=== PATIENT | male | born 1965 | race Two or more races ===

== ENCOUNTER 2025-03-15 11:14 | Inpatient (IN) | payer MEDICAID, OTHER ==
[2025-03-15] VITALS (17 sets, daily range): BP systolic 103–135; BP diastolic 32–62; PULSE 76–95; RESP 16–23; TEMP 97.7–99.1; O2SAT 97–100
[~2025-03-15] VITALS: Ht 170.2 cm; Wt 74.2 kg
[2025-03-15] MEDS: NALOXONE HCL 1MG/ML 2ML SYRINGE ONE (11:32)
[2025-03-15] MEDS: NALOXONE HCL 1MG/ML 2ML SYRINGE IV ONE (11:40)
[2025-03-15] MEDS: ETOMIDATE (2MG/ML) 20ML VIAL IV ONE ×2 (11:45→11:55)
[2025-03-15] MEDS: SUCCINYLCHOLINE CHLORIDE 20 MG/ML 10ML VIAL IV ONE ×2 (11:55)
[2025-03-15] MEDS: MIDAZOLAM DRIP 50 mg/50mL 50 ML IV SCH (11:55)
[2025-03-15] MEDS: MIDAZOLAM DRIP 50 mg/50mL 50 ML IV ONE (12:00)
--- NOTE | 2025-03-15 12:56 | ED.PDOC ---
Altered Mental Status HPI Comments 59y M who presents to the ED for chief complaint of ALOC. EMS states they were called by pt family member who is poor historian with last well knows at 1400. EMS arrived on scene and pt has 88% 02 sat and placed on 15 L via NRB. Pt was unable to answer questions and upon ED arrival, pt became alert upon being mov ed from EMS gurney to ED bed. Pt otherwise in and out of consciousness and was intubated. Pt otherwise has noted history of cirrhosis and has R above knee amputation. Chief Complaint: ALOC Time Seen by MD: 12:51 Reviewed Notes: Medications, Allergies Allergies: Coded Allergies: NO KNOWN ALLERGIES (Unverified , 03/15/25) Information Source: Patient, Emergency Med Personnel Mode of Arrival: EMS Past Medical History PAST MEDICAL HISTORY: DM Past Medical History (Other): cirrhosis Surgical History: Unknown Family History Family History: Unknown Social History Smoker: Unknown Alcohol: Unknown Drugs: Unknown Lives In: Home Constitutional: denies: chills, diaphoresis, fatigue, fever, malaise, sweats, weakness, others EENTM: denies: blurred vision, double vision, ear bleeding, ear discharge, ear drainage, ear pain, ear ringing, eye pain, eye redness, hearing loss, mouth pain, mouth swelling, nasal discharge, nose bleeding, nose congestion, nose pain, photophobia, tearing, throat pain, throat swelling, voice changes, others Respiratory: denies: cough, hemoptysis, orthopnea, SOB at rest, shortness of breath, SOB with excertion, stridor, wheezing, others Cardiovascular: denies: chest pain, dizzy spells, diaphoresis, Dyspnea on exertion, edema, irregular heart beat, left arm pain, lightheadedness, palpitations, PND, syncope, others Gastrointestinal: denies: abdomen distended, abdominal pain, blood streaked bowels, constipated, diarrhea, dysphagia, difficulty swallowing, hematemesis, melena, nausea, poor appetite, poor fluid intake, rectal bleeding, rectal pain, vomiting, others Genitourinary: denies: burning, dysuria, flank pain, frequency, hematuria, incontinence, penile discharge, penile sore, pain, testicle pain, testicle swelling, urgency, others Neurological: denies: dizziness, fainting, headache, left sided numbness, left sided weakness, numbness, paresthesia, pre-existing deficit, right sided numb ness, right sided weakness, seizure, speech problems, tingling, tremors, weakness, others Musculoskeletal: denies: back pain, gout, joint pain, joint swelling, muscle pain, muscle stiffness, neck pain, others Integumetry: denies: bruises, change in color, change in hair/nails, dryness, laceration, lesions, lumps, rash, wounds, others Allergic/Immunocompromised: denies: Difficulty Healing, Frequent Infections, Hives, Itching, others Hematologic/Lymphatic: denies: anemia, blood clots, easy bleeding, easy bruising, swollen glands, others Endocrine: denies: excessive hunger, excessive sweating, excessive thirst, excessive urination, flushing, intolerance to cold, intolerance to heat, unexplained weight gain, unexplained weight loss, others Psychiatric: denies: anxiety, bipolar disorder, depression, hopeless, panic disorder, schizophrenia, sleepless, suicidal, others Unable to Obtain due to: Altered Mental Status All Other Systems: Reviewed and Negative Physical Exam General Appearance: Obese HEENT: Normal ENT Inspection, Pharynx Normal, TMs Normal, Other (pupils 3mm bilateral equal and sluggish to ract to light) Neck: Normal Inspection, Other (neck is short and plethoric) Respiratory: Respiratory Distress (copious respiratory secretions) Cardiovascular: No Edema, No JVD, No Murmur, No Gallop, Normal Peripheral Pulses, Regular Rate/Rhythm Breast Exam: Deferred Gastrointestinal: No Organomegaly, Non Tender, No Pulsatile Mass, Normal Bowel Sounds, Soft Genitalia: Deferred Pelvic: Deferred Rectal: Deferred Extremities: Normal capillary refill, Normal inspection, Normal range of motion, No pedal edema Musculoskeletal : Apperance: Normal Neurologic: Other (pt is very somulent, wakes up with painful stimuli, bvut returns to solmulent state) Cerebellar Function: NOT DONE Reflexes: NOT DONE Skin: Dry, Normal Color, Warm Lymphatic: No Adenopathy Was a procedure done? Was a procedure done?: Yes Sedation Sedation?: Yes Informed consent obtained: No Sedation start time: 11:50 Sedation end time: 11:50 Sedation total time: 1 Intubation Indication: Altered Mental Status Prep: Preoxygenation Pretreated with: Sedation (etomidate 40mg) Medicated with: Nothing Intubation Approach: Orotracheal Intubation size: cm (8) Informed consent obtained: No Risks/benefits/alt described: No Notes pt was successfully intubated on the first pass, with the assist of a bougie. condensation in tube with each breath. CO2 detector with good color change. cxr with good Et position. bilateral BS equal, no epigastric gurgling. no complications Differential Diagnosis (ALOC) Differential Diagnosis: Dehydration, Hypoglycemia, DKA, Encephalopathy, Sepsis, Hypoxemia, Seizure, Closed Head Injury, CVA, Mass Lesion, SAH, Drug Overdose, ETOH Intoxication, Heart Failure, Renal Failure X-Ray, Labs, Meds, VS Vital Signs Date Time Temp Pulse Resp B/P (MAP) Pulse Ox O2 Delivery O2 Flow Rate FiO2 03/15/25 16:15 98.6 76 16 103/60 100 30 98.6 03/15/25 16:11 76 16 103/60 (74) 100 30 03/15/25 14:00 88/49 03/15/25 13:45 73 19 103/60 (74) 98 30 03/15/25 13:00 95/53 03/15/25 12:06 76 24 122/67 (85) 100 30 03/15/25 12:00 122/67 03/15/25 11:55 95/53 03/15/25 11:45 Nasal Cannula* 6 44 03/15/25 11:33 70 03/15/25 11:26 98.6 92 16 66/27 (40) 98 98.6 Lab Test 03/15/25 15:23 03/15/25 14:29 03/15/25 14:27 03/15/25 13:16 Range/Units Troponin I High Sensitivity 4 4 </=54 ng/L Urine Color Dark-yellow Yellow Urine Clarity Clear Clear Urine pH 5.5 5.0-9.0 Urine Specific Herrin 1.020 1.001-1.035 Urine Protein 1+ H Negative Urine Ketones Negative Negative Urine Blood Negative Negative /uL Urine Nitrite Negative Negative Urine Bilirubin Negative Negative Urine Urobilinogen Normal Negative mg/dL Urine Leukocyte Esterase Negative Negative /uL Urine RBC <1 0 - 3 /hpf Urine Microscopic WBC 1 0-3 /HPF Urine Squamous Epithelial Cells Few <5 /hpf Urine Bacteria None seen None Seen /hpf Urine Hyaline Casts Many 0 - 2 /lpf Urine Mucus Few None Seen Urine Glucose 3+ H Normal mg/dL Urine Opiates Screen Neg NEGATIVE Urine Fentanyl Screen Neg NEGATIVE Urine Barbiturates Screen Neg NEGATIVE Urine Phencyclidine Screen Neg NEGATIVE Urine Amphetamines Screen Neg NEGATIVE Urine Benzodiazepines Screen Pos NEGATIVE Urine Cocaine Screen Neg NEGATIVE Urine Cannabinoids Screen Neg NEGATIVE White Blood Count 12.6 H 4.4-10.8 10^3/uL Red Blood Count 4.55 4.5-5.90 10^6/uL Hemoglobin 13.1 L 13.5-17.5 g/dL Hematocrit 39.9 L 41.0-53.0 % Mean Corpuscular Volume 87.7 80.0-100.0 fL Mean Corpuscular Hemoglobin 28.7 28.0-32.0 pg Mean Corpuscular Hemoglobin Concent 32.8 32.0-36.0 g/dL Red Cell Distribution Width 14.5 H 11.8-14.3 % Platelet Count 354 140-450 10^3/uL Mean Platelet Volume 7.2 6.9-10.8 fL Neutrophils (%) (Auto) 37.0-80.0 % Lymphocytes (%) (Auto) 10.0-50.0 % Monocytes (%) (Auto) 0.0-12.0 % Basophils (%) (Auto) 0.0-2.0 % Neutrophils # (Auto) 1.6-8.6 10 ^3/uL Lymphocytes # (Auto) 0.4-5.4 10 ^3/uL Monocytes # (Auto) 0-1.3 10 ^3/uL Differential Total Cells Counted 100.0 100 Neutrophils % (Manual) 86 H 37.0-80.0 Band Neutrophils % (Manual) 6 Lymphocytes % (Manual) 3 L 10.0-50.0 Monocytes % (Manual) 5 0-12 Eosinophils % (Manual) 0 0-7 Basophils % (Manual) 0 0.0-2.0 Metamyelocytes % (manual) 0 Myelocytes % (Manual) 0 Promyelocytes % (Manual) 0 Blast Cells % (Manual) 0 Reactive Lymphocytes 0 Platelet Estimate Adequate Anisocytosis (manual) Slight Prothrombin Time 10.3 9.3-11.8 sec Prothrombin Time INR 0.97 0.9-1.15 Activated Partial Thromboplast Time 30.4 24.5-34.5 SEC Sodium Level 144 136-145 mmol/L Potassium Level 4.3 3.5-5.1 mmol/L Chloride Level 118 H 98-107 mmol/L Carbon Dioxide Level 17 L 20-31 mmol/L Anion Gap 9 5-15 Blood Urea Nitrogen 62 H 9-23 mg/dL Creatinine 3.16 H 0.700-1.30 mg/dL Glomerular Filtration Rate Calc 22 >90 mL/min BUN/Creatinine Ratio 19.6 10.0-20.0 Serum Glucose 106 74-106 mg/dL Lactic Acid Level 1.7 0.4-2.0 mmol/L Calcium Level 9.2 8.7-10.4 mg/dL Total Bilirubin 0.3 0.2-1.0 mg/dL Aspartate Amino Transferase (AST) 26 13-40 U/L Alanine Aminotransferase (ALT) 28 7-40 U/L Alkaline Phosphatase 120 H 46-116 U/L Ammonia < 10 L 11-32 umol/L Total Protein 6.0 5.7-8.2 g/dL Albumin 3.9 3.2-4.8 g/dL Plasma/Serum Blood Alcohol < 3.0 <10 mg/dL Blood Gas Specimen Type Arterial Blood Gas Sample Site Right brachial Blood Gas Patient Temperature 37.0 Arterial Blood Date Drawn [id number] Arterial Blood pH 7.183 *L 7.350-7.450 Arterial Blood Partial Pressure CO2 33.7 L 35.0-48.0 mmHg Arterial Blood Partial Pressure O2 92.5 83.0-108.0 mmHg Arterial Blood HCO3 12.4 L 21.0-28.0 mmol/L Arterial Blood Oxygen Saturation 96.6 94.0-98.0 % Arterial Blood Base Excess -14.8 L -2.0-3.0 mmol/L Arterial Blood Oxyhemoglobin 95.3 94.0-98.0 % Arterial Blood Carboxyhemoglobin 1.0 0.5-1.5 % Arterial Blood Methemoglobin 0.3 0.0-1.5 % Carmelo Test N/a Blood Gas Total Hemoglobin 13.20 L 13.5-17.5 g/dL Blood Gas Set Respiration Rate 16.0 Blood Gas Modality Vent - ac FiO2 % 30.0 Blood Gas Tidal Volume 450.0 Blood Gas PEEP or CPAP 5.0 Blood Gas Critical Value Read Back Yes Blood Gas Notified Whom Dr. kuhn Blood Gas Notified Time [id number] Blood Gas Notified By Zack rossi, manager contracting Current Medications Medications (Trade) Dose Ordered Sig/Niesha Route Start Time Stop Time Status Last Admin Midazolam HCl 50 ml @ 1 mls/hr Q24H IV 03/15/25 11:45 03/15/25 11:55 Etomidate 40 mg ONCE ONCE IV 03/15/25 11:45 03/15/25 11:46 DC 03/15/25 11:55 Lactated Ringer's 2,000 ml @ 2,000 mls/hr ONCE ONCE IV 03/15/25 12:00 03/15/25 12:59 DC 03/15/25 13:42 Naloxone HCl (Narcan) 2 mg ONCE ONCE IV 03/15/25 11:40 03/15/25 14:01 DC 03/15/25 11:40 Time of 1ST Reevaluation: 13:20 Reevaluation 1ST: Unchanged Patient Education/Counseling: Pt Unresponsive Family Education/Counseling: No Family Present Additional Information pt had copious thick yellow mucus from his airway. he appeared to have pneumonia, but cxr is unremarkable. the radiographic finding may be lagging behind with clinical finding. i suspect pt has respirtory failure, metabolic acidosis, with renal failure, precipitated by pneumonia with severe sepsis with septic shock Sepsis Sepsis Reasesment Focused Exam Sepsis focused exam: focus exam completed (pt's bp is improving), time: (1639) Orders: Laboratory Tests 03/15/25 14:27: Lactic Acid Level 1.7 Sepsis Date: March 15, 2025 Time recognized/suspected: 15:15 Recent Procedure: No On Antibiotic Therapy: No Respiratory Rate >20: Yes Heart Rate >90: No Temp<36 C (96.8 F) or >38.3 C: No SBP <90 or MAP <65 mmHG: Yes New Acute Mental Status Change: Yes Is the patient on CPAP, BIPAP,: No IV fluid given: Yes Departure 1 Departure Time of Disposition: 16:31 Impression: Primary Impression: Metabolic encephalopathy Additional Impressions: Respiratory failure Qualified Codes: J96.01 - Acute respiratory failure with hypoxia Metabolic acidosis Acute renal failure Qualified Codes: N17.9 - Acute kidney failure, unspecified Pneumonitis Severe sepsis Septic shock Disposition: ADMITTED INPATIENT Admit to: ICU Condition: Critical Critical Care Note Critical Care Time?: Yes (1 hr-critical care time only) Critical care comment: Due to concerns for patients condition deteriorating, the care required my highest level of attention and readiness to intervene. I assessed the patient, reviewed the medical records, ordered the appropriate tests and treatments, then reassessed for results and responsiveness. I communicated with medical personnel and consultants and formulated a plan of care. Total critical care time excludes any procedures Stability Stability form required: No Heart Score Heart Score: Heart Score Response (Comments) Value History N/A 0 EKG N/A 0 Age N/A 0 Risk Factors N/A 0 Troponin N/A 0 Total 0 I personally scribed for MERI KUHN MD ([email or web address]) on 03/15/25 at 12:56. Electronically submitted by Coby Dwyer ([email or web address]). MERI KUHN MD March 15, 2025 12:56
[2025-03-15 13:26] LABS: Base Excess -14.8 mmol/L (-2.0-3.0)
[2025-03-15] MEDS: LACTATED RINGER'S 2,000 ML IV ONE (13:42)
--- NOTE | 2025-03-15 13:55 | DVH ---
CHEST RADIOGRAPH Indication: s/p INTUBATION Technique: Single frontal view of the chest was obtained COMPARISON: None FINDINGS: Lines and Tubes: Endotracheal tube 2.1 cm above the lucrecia. NG tube coursing into the stomach but not seen distally. Low lung volumes bilaterally Moderate cardiomegaly No pleural effusions Lungs: Low lung volumes bilaterally Pleura: No effusion. No pneumothorax. Cardiomediastinal contours: Moderate cardiomegaly Bones: Unremarkable IMPRESSION: 1. Endotracheal tube 2.1 cm above the lucrecia 2. NG tube coursing into the stomach but not identified distally
[2025-03-15] MEDS ORDERED: PIPERACILLIN-TAZO 4.5GM 100 ML IV SCH (14:00)
[2025-03-15 14:31] LABS: Urine Bacteria None Seen /hpf (None Seen)
[2025-03-15 14:37] LABS: Urine Blood Negative /uL (Negative); Urine Clarity Clear (Clear); Urine Color Dark-Yellow (Yellow); Urine Hyaline Cast MANY /lpf (0 - 2); Urine Mucus FEW (None Seen); Urine Protein, UAD 1+ (Negative); Urine Squamous Epithelial Cell FEW /hpf (<5); Urine Urobilinogen Normal (Negative); Urine WBC 1 /HPF (0-3); Urine pH 5.5 (5.0-9.0)
[2025-03-15 14:46] LABS: Hematocrit 39.9 % (41.0-53.0); Hemoglobin 13.1 g/dL (13.5-17.5); Mean Corpuscular Hemoglobin 28.7 pg (28.0-32.0); Mean Corpuscular Hgb Conc. 32.8 g/dL (32.0-36.0); Mean Corpuscular Volume 87.7 fL (80.0-100.0); Platelet Count (auto) 354 10^3/uL (140-450); Red Blood Cells 4.55 10^6/uL (4.5-5.90); Red Cell Distribution Width 14.5 % (11.8-14.3); White Blood Cell 12.6 10^3/uL (4.4-10.8)
[2025-03-15 14:48] LABS: Amphetamine Screen, Urine Neg (NEGATIVE); Barbiturate Scree,Urine Neg (NEGATIVE); Benzodiazephine Screen, Urine Pos (NEGATIVE); Cannabinoid Screen, Urine Neg (NEGATIVE); Cocaine Screen, Urine Neg (NEGATIVE); Opiate Scree,Urine Neg (NEGATIVE); Phencyclidine Screen, Urine Neg (NEGATIVE)
[2025-03-15 14:52] LABS: Basophils % (manual) 0 (0.0-2.0); Blast Cells 0; Eosinophils % (manual) 0 (0-7); Metamyelocytes % 0; Myelocytes % 0; Promyelocytes % 0; Reactive Lymphocytes 0
[2025-03-15 14:58] LABS: Band Neutrophils % (manual) 6; Lymphocytes % (manual) 3 (10.0-50.0); Monocytes % (manual) 5 (0-12)
[2025-03-15 14:59] LABS: Anisocytosis Slight; Platelet Estimate Adequate
[2025-03-15 15:01] LABS: INR 0.97 (0.9-1.15); Partial Thromboplastin Time 30.4 SEC (24.5-34.5); Prothrombin Time 10.3 sec (9.3-11.8)
[2025-03-15 15:02] LABS: Alanine Aminotransferase 28 U/L (7-40); Albumin 3.9 g/dL (3.2-4.8); Alkaline Phosphatase 120 U/L (46-116); Anion Gap 9 (5-15); Aspartate Aminotransferase 26 U/L (13-40); BUN/Creatinine Ratio 19.6 (10.0-20.0); Blood Alcohol < 3.0 mg/dL (<10); Blood Urea Nitrogen 62 mg/dL (9-23); Calcium 9.2 mg/dL (8.7-10.4); Carbon Dioxide 17 mmol/L (20-31); Chloride 118 mmol/L (98-107); Glucose 106 mg/dL (74-106); Potassium 4.3 mmol/L (3.5-5.1); Sodium 144 mmol/L (136-145)
[2025-03-15 15:03] LABS: Bilirubin, Total 0.3 mg/dL (0.2-1.0)
[2025-03-15] MEDS ORDERED: VANCOMYCIN PER PHARMACY 0 MG IV SCH ×2 (15:15→17:15)
--- NOTE | 2025-03-15 15:40 | DVH ---
CLINICAL INFORMATION: Altered mental status. TECHNIQUE: Axial imaging was obtained through the brain without contrast. Coronal and sagittal reform atted images were obtained, reviewed, and stored. Images were reviewed in brain and bone windows. Al l CT scans at this medical facility are performed using dose modulation techniques as appropriate to a performed exam including the following: Automated exposure control was utilized; adjustment of the MA and/or KV according to patient size; and use of iterative reconstruction technique. CTDIvol = 58.7 4 mGy DLP = 1039.97 mGy-cm COMPARISON: None FINDINGS: There is no acute intracranial hemorrhage. No mass effect or midline shift. The ventricles and sulci are within normal limits in size for age. Basal cisterns are patent. The calvarium is unre markable. Mild mucosal thickening of the paranasal sinuses. Retention cyst versus polyp in the right maxillary sinus. Partially visualized nasogastric tube. IMPRESSION: 1. No CT evidence of acute intracranial abnormality. 2. Additional findings as described above.
[2025-03-15] MEDS: SODIUM BICARB 8.4% 50Meq/50ml SYR Vial IV ONE (16:50)
[2025-03-15] MEDS: PIPERACILLIN-TAZOB 3.375GM 100 ML IV ONE (16:54)
[2025-03-15] MEDS ORDERED: DEXTROSE (50%) 50ML SYRG IV PRN (17:15)
[2025-03-15] MEDS ORDERED: NITROGLYCERIN 0.4 MG SL TAB SL PRN (17:15)
[2025-03-15] MEDS ORDERED: MORPHINE SULFATE INJ 2 MG/ml SYRG IV PRN (17:15)
[2025-03-15] MEDS ORDERED: SODIUM CHLORIDE 0.9% 1,000 ML IV SCH (17:15)
[2025-03-15] MEDS: VANCOMYCIN 1GM/250ML KIT 250 ML IV ONE (17:21)
[2025-03-15] MEDS ORDERED: FOLI-119 PO (17:26)
[2025-03-15] MEDS ORDERED: ATOR20TA (17:26)
[2025-03-15] MEDS: VANCOMYCIN 1GM/200ML PM 200 ML IV ONE (17:42)
--- NOTE | 2025-03-15 17:43 | DVHHP2 ---
History of Present Illness Reason for Visit: ALOC History of Present Illness Aaron Del Angel is a 59-year-old male with past medical history of diabetes, cirrhosis, and right BKA who presents to the ED with altered level of consciousness. Per family reports patient last known well time at 2:00 p.m. yesterday. Unable to obtain more information as patient is currently intubated on the vent on sedation and pressor. Called phone number listed on file Yusuf (mother) He lives with the mother per report. Patient was taking insulin and did not take his last night insulin. He was at [facility] last week because he did not take his meds for 3 days. Mom reports he has schizophrenia and bipolar disease on prozac. on Metop started by [facility] takes total of 13 pills. 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 Hepatobiliary: Cirrhosis Psych: Bipolar, Schizophrenia Endocrine: Diabetes Past Surgical History: Other (Right BKA) Smoke: No ALCOHOL: heavy Drugs: None Lives: with Family Review of Systems Constitutional: Yes: Other (ALOC) Allergies: Coded Allergies: NO KNOWN ALLERGIES (Unverified , 03/15/25) Medications Current Medications Medications Dose Ordered Sig/Niesha Route Start Time Stop Time Status Last Admin Dose Admin Midazolam HCl 50 ml @ 1 mls/hr Q24H IV 03/15/25 11:45 03/15/25 11:55 1 MLS/HR Norepinephrine Bitartrate 250 ml @ 3.75 mls/hr Q24H IV 03/15/25 12:00 Vancomycin HCl 200 ml @ 200 mls/hr Q12HR IV 03/15/25 22:00 UNV Vancomycin HCl 0 ml @ 0 mls/hr UD IV 03/15/25 15:15 Piperacillin Sod/ Tazobactam Sod 100 ml @ 25 mls/hr Q8HR IV 03/15/25 22:00 Exam Vital Signs Vital Signs Date Time Temp Pulse Resp B/P (MAP) Pulse Ox O2 Delivery O2 Flow Rate FiO2 03/15/25 16:15 98.6 76 16 103/60 100 30 98.6 03/15/25 11:45 Nasal Cannula* 6 Abdominal: Soft Extremities: Other (Right BKA) Labs/Xrays Labs Test 03/15/25 15:23 03/15/25 14:29 03/15/25 14:27 03/15/25 13:16 Range/Units Troponin I High Sensitivity 4 </=54 ng/L Urine Color Dark-yellow Yellow Urine Clarity Clear Clear Urine pH 5.5 5.0-9.0 Urine Specific [place] 1.020 1.001-1.035 Urine Protein 1+ H Negative Urine Ketones Negative Negative Urine Blood Negative Negative /uL Urine Nitrite Negative Negative Urine Bilirubin Negative Negative Urine Urobilinogen Normal Negative mg/dL Urine Leukocyte Esterase Negative Negative /uL Urine RBC <1 0 - 3 /hpf Urine Microscopic WBC 1 0-3 /HPF Urine Squamous Epithelial Cells Few <5 /hpf Urine Bacteria None seen None Seen /hpf Urine Hyaline Casts Many 0 - 2 /lpf Urine Mucus Few None Seen Urine Glucose 3+ H Normal mg/dL Urine Opiates Screen Neg NEGATIVE Urine Fentanyl Screen Neg NEGATIVE Urine Barbiturates Screen Neg NEGATIVE Urine Phencyclidine Screen Neg NEGATIVE Urine Amphetamines Screen Neg NEGATIVE Urine Benzodiazepines Screen Pos NEGATIVE Urine Cocaine Screen Neg NEGATIVE Urine Cannabinoids Screen Neg NEGATIVE White Blood Count 12.6 H 4.4-10.8 10^3/uL Red Blood Count 4.55 4.5-5.90 10^6/uL Hemoglobin 13.1 L 13.5-17.5 g/dL Hematocrit 39.9 L 41.0-53.0 % Mean Corpuscular Volume 87.7 80.0-100.0 fL Mean Corpuscular Hemoglobin 28.7 28.0-32.0 pg Mean Corpuscular Hemoglobin Concent 32.8 32.0-36.0 g/dL Red Cell Distribution Width 14.5 H 11.8-14.3 % Platelet Count 354 140-450 10^3/uL Mean Platelet Volume 7.2 6.9-10.8 fL Neutrophils (%) (Auto) 37.0-80.0 % Lymphocytes (%) (Auto) 10.0-50.0 % Monocytes (%) (Auto) 0.0-12.0 % Basophils (%) (Auto) 0.0-2.0 % Neutrophils # (Auto) 1.6-8.6 10 ^3/uL Lymphocytes # (Auto) 0.4-5.4 10 ^3/uL Monocytes # (Auto) 0-1.3 10 ^3/uL Differential Total Cells Counted 100.0 100 Neutrophils % (Manual) 86 H 37.0-80.0 Band Neutrophils % (Manual) 6 Lymphocytes % (Manual) 3 L 10.0-50.0 Monocytes % (Manual) 5 0-12 Eosinophils % (Manual) 0 0-7 Basophils % (Manual) 0 0.0-2.0 Metamyelocytes % (manual) 0 Myelocytes % (Manual) 0 Promyelocytes % (Manual) 0 Blast Cells % (Manual) 0 Reactive Lymphocytes 0 Platelet Estimate Adequate Anisocytosis (manual) Slight Prothrombin Time 10.3 9.3-11.8 sec Prothrombin Time INR 0.97 0.9-1.15 Activated Partial Thromboplast Time 30.4 24.5-34.5 SEC Sodium Level 144 136-145 mmol/L Potassium Level 4.3 3.5-5.1 mmol/L Chloride Level 118 H 98-107 mmol/L Carbon Dioxide Level 17 L 20-31 mmol/L Anion Gap 9 5-15 Blood Urea Nitrogen 62 H 9-23 mg/dL Creatinine 3.16 H 0.700-1.30 mg/dL Glomerular Filtration Rate Calc 22 >90 mL/min BUN/Creatinine Ratio 19.6 10.0-20.0 Serum Glucose 106 74-106 mg/dL Lactic Acid Level 1.7 0.4-2.0 mmol/L Calcium Level 9.2 8.7-10.4 mg/dL Total Bilirubin 0.3 0.2-1.0 mg/dL Aspartate Amino Transferase (AST) 26 13-40 U/L Alanine Aminotransferase (ALT) 28 7-40 U/L Alkaline Phosphatase 120 H 46-116 U/L Ammonia < 10 L 11-32 umol/L Total Protein 6.0 5.7-8.2 g/dL Albumin 3.9 3.2-4.8 g/dL Plasma/Serum Blood Alcohol < 3.0 <10 mg/dL Blood Gas Specimen Type Arterial Blood Gas Sample Site Right brachial Blood Gas Patient Temperature 37.0 Arterial Blood Date Drawn [id number] Arterial Blood pH 7.183 *L 7.350-7.450 Arterial Blood Partial Pressure CO2 33.7 L 35.0-48.0 mmHg Arterial Blood Partial Pressure O2 92.5 83.0-108.0 mmHg Arterial Blood HCO3 12.4 L 21.0-28.0 mmol/L Arterial Blood Oxygen Saturation 96.6 94.0-98.0 % Arterial Blood Base Excess -14.8 L -2.0-3.0 mmol/L Arterial Blood Oxyhemoglobin 95.3 94.0-98.0 % Arterial Blood Carboxyhemoglobin 1.0 0.5-1.5 % Arterial Blood Methemoglobin 0.3 0.0-1.5 % Carmelo Test N/a Blood Gas Total Hemoglobin 13.20 L 13.5-17.5 g/dL Blood Gas Set Respiration Rate 16.0 Blood Gas Modality Vent - ac FiO2 % 30.0 Blood Gas Tidal Volume 450.0 Blood Gas PEEP or CPAP 5.0 Blood Gas Critical Value Read Back Yes Blood Gas Notified Whom Dr. kuhn Blood Gas Notified Time [id number] Blood Gas Notified By Zack rossi rrt CLINICAL INFORMATION: Altered mental status. TECHNIQUE: Axial imaging was obtained through the brain without contrast. Coronal and sagittal reformatted images were obtained, reviewed, and stored. Images were reviewed in brain and bone windows. All CT scans at this medical facility are performed using dose modulation techniques as appropriate to a performed exam including the following: Automated exposure control was utilized; adjustment of the MA and/or KV according to patient size; and use of iterative reconstruction technique. CTDIvol = 58.74 mGy DLP = 1039.97 mGy-cm COMPARISON: None FINDINGS: There is no acute intracranial hemorrhage. No mass effect or midline shift. The ventricles and sulci are within normal limits in size for age. Basal cisterns are patent. The calvarium is unremarkable. Mild mucosal thickening of the paranasal sinuses. Retention cyst versus polyp in the right maxillary sinus. Partially visualized nasogastric tube. IMPRESSION: 1. No CT evidence of acute intracranial abnormality. 2. Additional findings as described above. CHEST RADIOGRAPH Indication: s/p INTUBATION Technique: Single frontal view of the chest was obtained COMPARISON: None FINDINGS: Lines and Tubes: Endotracheal tube 2.1 cm above the lucrecia. NG tube coursing into the stomach but not seen distally. Low lung volumes bilaterally Moderate cardiomegaly No pleural effusions Lungs: Low lung volumes bilaterally Pleura: No effusion. No pneumothorax. Cardiomediastinal contours: Moderate cardiomegaly Bones: Unremarkable IMPRESSION: 1. Endotracheal tube 2.1 cm above the lucrecia 2. NG tube coursing into the stomach but not identified distally Assessment/Plan Assessment/Plan Assessment Acute metabolic encephalopathy Leukocytosis likely due to sepsis with septic shock Acute hypoxic respiratory failure with severe sepsis Acute respiratory acidosis intubated and on mechanical ventilation ?Acute on chronic renal insufficiency Azotemia Positive benzo on tox screen History of diabetes History of cirrhosis likely alcoholic History of right BKA History of bipolar History of schizophrenia History of medication noncompliance History of heavy alcohol use Plan Admit to ICU CT head noted Chest x-ray noted Pressor to keep maps greater than 65 Sedation Vent management IV antibiotics-Zosyn plus vancomycin Creatinine Respiratory culture ABG Troponin negative x2 Lactic level Blood cultures Type and screen UA Manual differential Ammonia level Blood alcohol level UDS PT/PTT Sodium bicarb drip Urine culture CT abdomen and pelvis ordered Acute hepatitis panel ordered Hemoglobin A1c ISS and Accu-Cheks NPO Home medications reconciled DVT prophylaxis-Lovenox PUD prophylaxis-PPIs Discussed plan of care with nurse Nephro consult Plan discussed with: Other My Orders Orders - NIYA DUMONT Procedure Category Date Status Time Admit ADMIT 03/15/25 Transmitted 17:11 Allergies [facility] 03/15/25 In Process 17:11 Code Status CODE 03/15/25 Transmitted 17:11 Sodium Chloride 0.9% [facility] 03/15/25 Logged 17:15 Ondansetron Hcl [facility] 03/15/25 Logged (Zofran) 17:15 Comprehensive LAB 03/16/25 Verified Metabolic Panel 04:00 Npo (Nothing By DIET 03/15/25 Transmitted Mouth) Diet Dinner Acetaminophen Tablet [facility] 03/15/25 Logged (Tylenol Tablet) 17:15 Nitroglycerin [facility] 03/15/25 Logged Sublingual (Ntrostat 17:15 Morphine Sulfate [facility] 03/15/25 Logged Injection 17:15 Stat Ekg For Chest [facility] 03/15/25 In Process Pain 17:11 Notify Of Changes [facility] 03/15/25 In Process From Base 17:11 Business Development Coordinator For [facility] 03/15/25 In Process 24 Hours 17:11 Emergency Dysrhythmia [facility] 03/15/25 In Process Protocol 17:11 Rhythm Strips Once [facility] 03/15/25 In Process Every Shift 17:11 Oxygen By Nasal RT 03/15/25 Transmitted Cannula 17:11 Enoxaparin Sodium [facility] 03/15/25 Logged (Lovenox) 17:15 *Dr. [facility] CONS 03/15/25 Transmitted [place] 17:11 Vancomycin Per [facility] 03/15/25 Logged Pharmacy 17:15 Piperacillin-Tazob [facility] 03/15/25 Logged 3.375gm (Zosyn 3.375g 22:00 Urinalysis LAB 03/15/25 Logged 17:11 Urine Bacterial MIRIAN 03/15/25 Logged Culture 17:11 Abg W/ Co-Ox RT 03/15/25 Logged 17:11 D5w 5% (Dextrose 5%) [facility] 03/15/25 Logged W/Sodium Bicarb 50m 17:15 Glucose Blood [facility] 03/15/25 Logged (Accu-Chek Comfort 18:00 Insulin R (Human) [facility] 03/15/25 Logged (Insulin R) 18:00 Dextrose 50% Syringe [facility] 03/15/25 Logged 17:15 Hemoglobin A1c LAB 03/15/25 In Process 17:11 Erythrocyte LAB 03/15/25 Logged Sedimentation Rate 17:25 C-Reactive Protein LAB 03/15/25 Logged 17:25 Date of Service: March 15, 2025 Billing Provider: NIYA DUMONT Common Visit Codes: [id number] INP/OBS CARE (HIGH) NIYA DUMONT March 15, 2025 17:43
[2025-03-15 17:53] LABS: Base Excess -10.6 mmol/L (-2.0-3.0)
[2025-03-15] MEDS: InsuLIN REG 1unit/0.01ml Soln (100units/ml) SC SCH (18:00)
[2025-03-15 18:18] LABS: Erythrocyte Sedimentation Rate 18 mm/hr (0-20)
[2025-03-15] MEDS: ACCU-CHEK COMFORT CURVE STRIP VI SCH (18:27)
[2025-03-15] MEDS: SODIUM BICARB 50mEq/50ml Vial 150 ML in D5W 5% 1,000 ML IV SCH (18:55)
--- NOTE | 2025-03-15 18:58 | ECG ---
[facility] Test Date: 2025-03-15 Test Time: 11:16:41 Pat Name: LISA BENITES Department: ED Room: 0263 Gender: M [employer]: KYLE : 1965 Requested By: MERI ALVARADO Order Number: [id number] Reading MD: Roshan Velasco Measurements Intervals [place] Rate: 70 P: 48 [place]: 172 QRS: 63 QRSD: 92 T: 69 QT: 468 QTc: 506 Interpretive Statements Sinus rhythm Low voltage, precordial leads Prolonged QT interval Electronically Signed On 03-16-2025 22:33:21 PDT by Roshan Velasco Please click the below link to view image of tracing.
[2025-03-15] MEDS ORDERED: HYDR50TA69 PO (20:09)
[2025-03-15] MEDS ORDERED: FLUO1TAB14 PO (20:09)
[2025-03-15] MEDS ORDERED: AML5T PO (20:09)
[2025-03-15] MEDS ORDERED: TEMA30CA PO (20:09)
[2025-03-15] MEDS ORDERED: LOSA-534 PO (20:09)
[2025-03-15] MEDS ORDERED: METO-158 PO (20:09)
[2025-03-15] MEDS ORDERED: ERTU5TAB PO (20:09)
[2025-03-15] MEDS ORDERED: ATOR20TA50 PO (20:09)
[2025-03-15] MEDS ORDERED: INSLANTI SC (20:09)
[2025-03-15] MEDS ORDERED: APIX5TAB PO (20:09)
[2025-03-15] MEDS ORDERED: METF-371 PO (20:09)
[2025-03-15] MEDS ORDERED: GABA-1308 PO (20:09)
[2025-03-15] MEDS ORDERED: BACL10TA PO (20:09)
[2025-03-15] MEDS ORDERED: INSU100I52 IJ (20:09)
[2025-03-15] MEDS ORDERED: QUET100T47 PO (20:09)
[2025-03-15] MEDS ORDERED: GABA300T4 PO (20:11)
[2025-03-15] MEDS: NOREPINEPHRINE 8 MG/250ML KIT 250 ML IV SCH (20:21)
[2025-03-15] MEDS: ATORVASTATIN 20 MG TAB NG SCH (21:39)
[2025-03-15] MEDS: PIPERACILLIN-TAZOB 3.375GM 100 ML IV SCH (21:39)
[2025-03-15] MEDS ORDERED: VANCOMYCIN 1GM/200ML PM 200 ML IV SCH (22:00)
[2025-03-15] MEDS ORDERED: PIPERACILLIN-TAZOB 3.375GM 100 ML IV SCH (22:00)
[2025-03-16] VITALS (109 sets, daily range): BP systolic 88–174; BP diastolic 32–91; PULSE 81–110; RESP 13–20; TEMP 98.8–100.6; O2SAT 96–100
--- NOTE | 2025-03-16 00:21 | DVH ---
Exam: CT CT AB PEL WO CON-NO ORAL OR IV History: hx of cirrhosis Comparison Study: None Technique: Multidetector spiral CT of the abdomen was performed from lung bases to pubic symphysis. I maging was performed without IV contrast. Axial, coronal and sagittal multiplanar reformats were obta ined from the axial data set by the technologist. Radiation Dose : 1. Abdomen/Pelvis: CTDIvol 20.6 mGy, DLP 1383.3 mGy*cm. Findings: Evaluation of solid organs is limited due to lack of intravenous contrast use. Lung Bases: Small bilateral pleural effusions with moderate adjacent atelectasis. The heart is modera tely enlarged and atherosclerotic vascular calcifications are noted. Enteric catheter terminates wit hin the region of the gastroduodenal junction. Liver: The liver is normal in size. No focal lesions. Gallbladder and Biliary Tree: Unremarkable Spleen: Unremarkable Pancreas: The pancreas is grossly normal in appearance. Adrenal Glands: Unremarkable Kidneys: Kidneys are grossly normal without calculi or hydronephrosis. Bladder: Roach catheter. Small volume intraluminal gas. Bowel: The stomach is grossly normal in appearance. Small bowel and colon are normal in caliber and d istribution. Rectal catheter. The appendix is normal. Ascites: Absent Lymphadenopathy: No mesenteric, retroperitoneal or periportal lymphadenopathy. Abdominal Wall and Mesentery: Unremarkable. Vasculature: The visualized abdominal aorta is normal in size and caliber. Atherosclerotic vascular c alcifications. Evaluation of abdominal and pelvic vessels is limited due to lack of intravenous cont rast. Pelvic Organs: Unremarkable Musculoskeletal: No aggressive focal bony lesions, acute fractures or dislocation. IMPRESSION: 1. No evidence of acute abdominopelvic process. 2. Small bilateral pleural effusions with adjacent atelectasis. 3. Cardiomegaly. 4. Lines and tubes as above. Radiation optimization: All CT scans at this facility use at least one of these dose optimization surinder hniques: automated exposure control mA and/or kV adjustment per patient size (includes targeted exam s where dose is matched to clinical indication) or iterative reconstruction.
--- NOTE | 2025-03-16 04:37 | DVH ---
CHEST RADIOGRAPH Indication: routine cxr for intubated patients Technique: Single frontal view of the chest was obtained COMPARISON: XY CHEST PORTABLE on DOS: 03/15/25 FINDINGS: Lines and Tubes: Unchanged. Lungs: Diminished lung volumes with mild exaggeration of the pulmonary vasculature. No evidence of f ocal consolidation. Pleura: No effusion. No pneumothorax. Cardiomediastinal contours: Unremarkable Bones: Unremarkable IMPRESSION: 1. No acute disease. Increased prominence of the pulmonary vasculature. 2. Lines and tubes unchanged.
[2025-03-16] MEDS: SODIUM BICARB 8.4% 50Meq/50ml SYR Vial IV ONE (05:30)
[2025-03-16 05:35] LABS: Basophils # (auto) 0 10 ^3/uL (0-0.2); Basophils % (auto) 0.2 % (0.0-2.0); Eosinophils # (auto) 0.1 10 ^3/uL (0-0.8); Eosinophils % (auto) 1.4 % (0.0-7.0); Hematocrit 37.7 % (41.0-53.0); Hemoglobin 12.7 g/dL (13.5-17.5); Lymphocytes # (auto) 0.5 10 ^3/uL (0.4-5.4); Lymphocytes % (auto) 5.1 % (10.0-50.0); Mean Corpuscular Hgb Conc. 33.7 g/dL (32.0-36.0); Mean Corpuscular Volume 86.2 fL (80.0-100.0); Monocytes # (auto) 0.5 10 ^3/uL (0-1.3); Monocytes % (auto) 4.9 % (0.0-12.0); Neutrophils # (auto) 9.2 10 ^3/uL (1.6-8.6); Neutrophils % (auto) 88.4 % (37.0-80.0); Platelet Count (auto) 319 10^3/uL (140-450); Red Blood Cells 4.38 10^6/uL (4.5-5.90); Red Cell Distribution Width 14.3 % (11.8-14.3); White Blood Cell 10.5 10^3/uL (4.4-10.8)
[2025-03-16 05:58] LABS: Alanine Aminotransferase 23 U/L (7-40); Albumin 3.9 g/dL (3.2-4.8); Alkaline Phosphatase 108 U/L (46-116); Anion Gap 10 (5-15); Aspartate Aminotransferase 30 U/L (13-40); BUN/Creatinine Ratio 17.7 (10.0-20.0); Bilirubin, Total 0.3 mg/dL (0.2-1.0); Blood Urea Nitrogen 36 mg/dL (9-23); Calcium 8.9 mg/dL (8.7-10.4); Carbon Dioxide 21 mmol/L (20-31); Chloride 114 mmol/L (98-107); Glucose 201 mg/dL (74-106); Potassium 3.6 mmol/L (3.5-5.1); Sodium 145 mmol/L (136-145); Total Protein 6.3 g/dL (5.7-8.2)
[2025-03-16 07:01] LABS: Base Excess -2.7 mmol/L (-2.0-3.0)
[2025-03-16] MEDS: ENOXAPARIN SOD 30 MG/0.3 ML SYRINGE SC SCH (09:33)
[2025-03-16] MEDS: FOLIC ACID 1 MG TAB PO SCH (09:34)
--- NOTE | 2025-03-16 10:07 | DVHINCON2 ---
Date of service: Mar 16, 2025 Referring Physician Hospital Reason for Consultation Acute kidney injury History of Present Illness 59-year-old male with significant chronic medical conditions of diabetes, hypertension, BKA presents to the hospital with change in mental state. Due to patient's respiratory concerns and hypoxia patient was intubated. Patient was transferred to the ICU. On pressors. Nephrology consulted due to elevated creatinine creatinine was 3.1 on admission without baseline. Past Medical History Diabetes, hypertension, peripheral vascular disease, hyperlipidemia Past Surgical History Right BKA Allergies: Coded Allergies: NO KNOWN ALLERGIES (Unverified , 03/15/25) Home Meds Reported Medications Gabapentin (Once-Daily) (Gabapentin) 300 Mg Tab, 400 MG PO, TAB 03/15/25 Insulin Lispro (Insulin Lispro) 100 Unit/Ml Inj, 15 UNIT IJ, INJ 03/15/25 Insulin Lispro (Insulin Lispro) 100 Unit/Ml Inj, 100 UNIT IJ, INJ 03/15/25 Insulin Glargine (Lantus) 100 Unit/Ml Inj, 40 UNIT SC, INJ 03/15/25 Metoprolol Tartrate (Metoprolol Tartrate) 50 Mg Tab, 50 MG PO for 30 Days, MG 03/15/25 Hydroxyzine Hcl (Hydroxyzine Hcl) 50 Mg Tab, 50 MG PO for 30 Days, MG 03/15/25 Apixaban Base (ELIQUIS) 5 Mg Tab, 5 MG PO BID, TAB 03/15/25 Ertugliflozin l-Pyroglutamic A (Steglatro) 5 Mg Tab, 5 MG PO, TAB 03/15/25 Amlodipine Besylate (NORVASC TABLET) 5 Mg Tb, 1 TAB PO DAILY, #90 TAB 3 Refills 03/15/25 Baclofen (Baclofen) 10 Mg Tab, 0 PO Q8HR for 30 Days, MG 03/15/25 Quetiapine Fumerate (QUETIAPINE FUMARATE) 100 Mg Tab, 100 MG PO for 30 Days, MG 03/15/25 Folic Acid (Folic Acid) 1 Mg Tab, 1 MG PO DAILY for 30 Days, MG 03/15/25 Temazepam (Temazepam) 30 Mg Cap, 30 MG PO, CAP 03/15/25 Atorvastatin Calcium (ATORVASTATIN CALCIUM) 20 Mg Tab, 20 MG PO DAILY, TAB 03/15/25 Losartan Potassium (Losartan Potassium) 50 Mg Tab, 50 MG PO DAILY for 30 Days, MG 03/15/25 Fluoxetine HCl (Pmdd) (Fluoxetine HCl) 20 Mg Tab, 20 MG PO, TAB 03/15/25 Metformin Hydrochloride (Metformin Hcl) 850 Mg Tab, 850 MG PO for 30 Days, MG 03/15/25 Atorvastatin Calcium (Lipitor) 20 Mg Tab 03/15/25 Folic Acid (Folic Acid) 1 Mg Tab, 1 TAB PO DAILY 03/15/25 Discontinued Reported Medications Gabapentin (Gabapentin) 100 Mg Cap, 100 MG PO TID 03/15/25 Current Medications Current Medications Medications (Trade) Dose Ordered Sig/Niesha Route PRN Reason Start Time Stop Time Status Last Admin Midazolam HCl 50 ml @ 1 mls/hr Q24H IV 03/15/25 11:45 03/16/25 07:19 Norepinephrine Bitartrate 250 ml @ 3.75 mls/hr Q24H IV 03/15/25 12:00 Vancomycin HCl 200 ml @ 200 mls/hr Q12HR IV 03/15/25 22:00 UNV Piperacillin Sod/ Tazobactam Sod 100 ml @ 25 mls/hr Q8HR IV 03/15/25 14:00 03/15/25 15:10 DC Vancomycin HCl 0 ml @ 0 mls/hr UD IV 03/15/25 15:15 Piperacillin Sod/ Tazobactam Sod 100 ml @ 25 mls/hr Q8HR IV 03/15/25 22:00 03/16/25 05:39 Sodium Chloride 1,000 ml @ 120 mls/hr Q8H20M IV 03/15/25 17:15 03/15/25 17:48 DC Ondansetron HCl (Zofran) 4 mg Q4HP PRN IV NAUSEA / VOMITING 03/15/25 17:15 Acetaminophen (Tylenol Tablet) 650 mg Q6HP PRN PO PAIN SCALE 1-3 OR TEMP>100.4 03/15/25 17:15 Nitroglycerin (Ntrostat Sublingual) 0.4 mg Q5MINP PRN SL FOR CHEST PAIN 03/15/25 17:15 Morphine Sulfate 2 mg Q30M PRN IV FOR CHEST PAIN 03/15/25 17:15 Enoxaparin Sodium (Lovenox) 30 mg DAILY SC 03/16/25 10:00 03/16/25 09:33 Vancomycin HCl 0 ml @ 0 mls/hr UD IV 03/15/25 17:15 03/15/25 17:32 DC Piperacillin Sod/ Tazobactam Sod 100 ml @ 25 mls/hr Q8HR IV 03/15/25 22:00 03/15/25 17:42 DC Sodium Bicarbonate 150 ml/Dextrose 1,150 ml @ 100 mls/hr [id number] IV 03/15/25 17:15 03/16/25 06:36 Diagnostic Test (Pha) (Accu-Chek Comfort Curve T) 1 strip Q6HR 03/15/25 18:00 03/16/25 05:53 Insulin Human Regular (InsuLIN R) Q6HR SC 03/15/25 18:00 03/16/25 05:53 Dextrose 50 ml UD PRN IV Blood Sugar LESS THAN 60 03/15/25 17:15 Atorvastatin Calcium (Lipitor) 20 mg HS NG 03/15/25 22:00 03/15/25 21:39 Folic Acid 1 mg DAILY PO 03/16/25 10:00 03/16/25 09:34 Family History: Patient reports no known family medical history. Review of Systems Unable to obtain as patient is intubated H&P Exam Vital Signs/I&O Vital Sign Date Time Temp Pulse Resp B/P (MAP) Pulse Ox O2 Delivery O2 Flow Rate FiO2 03/16/25 08:10 89 17 155/50 (85) 100 30 03/16/25 08:00 Mechanical Ventilator+ 03/16/25 04:00 98.8 98.8 03/15/25 11:45 6 Intake and Output 03/15/25 03/16/25 19:00 07:00 Intake Total 3033.0833 ml 1416 ml Output Total 2350 ml Balance 3033.0833 ml -934 ml Intake Oral 0 ml IV Total 3033.0833 ml 1416 ml Output Urine Total 2350 ml Physical Exam male appears stated age Intubated Sedated Off pressors Right BKA Abdomen is large nondistended nontender no fluid wave Left lower extremity shows no pitting edema Regular rate and rhythm Labs/Diagnostic Data Labs/Diagnostic Data Laboratory Tests Test 03/16/25 06:54 03/16/25 05:48 03/16/25 04:56 03/15/25 23:36 Range/Units Blood Gas Specimen Type Arterial Blood Gas Sample Site Left radial Blood Gas Patient Temperature 37.0 Arterial Blood Date Drawn [id number] Arterial Blood pH 7.404 7.350-7.450 Arterial Blood Partial Pressure CO2 35.0 35.0-48.0 mmHg Arterial Blood Partial Pressure O2 97.0 83.0-108.0 mmHg Arterial Blood HCO3 21.4 21.0-28.0 mmol/L Arterial Blood Oxygen Saturation 96.9 94.0-98.0 % Arterial Blood Base Excess -2.7 L -2.0-3.0 mmol/L Arterial Blood Oxyhemoglobin 95.9 94.0-98.0 % Arterial Blood Carboxyhemoglobin 0.6 0.5-1.5 % Arterial Blood Methemoglobin 0.4 0.0-1.5 % Carmelo Test Modified Blood Gas Total Hemoglobin 12.80 L 13.5-17.5 g/dL Blood Gas Set Respiration Rate 16.0 Blood Gas Modality Vent - ac FiO2 % 30.0 Blood Gas Tidal Volume 450.0 Blood Gas PEEP or CPAP 5.0 POC Glucose 197 H 182 H 70-106 mg/dl White Blood Count 10.5 4.4-10.8 10^3/uL Red Blood Count 4.38 L 4.5-5.90 10^6/uL Hemoglobin 12.7 L 13.5-17.5 g/dL Hematocrit 37.7 L 41.0-53.0 % Mean Corpuscular Volume 86.2 80.0-100.0 fL Mean Corpuscular Hemoglobin 29.0 28.0-32.0 pg Mean Corpuscular Hemoglobin Concent 33.7 32.0-36.0 g/dL Red Cell Distribution Width 14.3 11.8-14.3 % Platelet Count 319 140-450 10^3/uL Mean Platelet Volume 7.5 6.9-10.8 fL Neutrophils (%) (Auto) 88.4 H 37.0-80.0 % Lymphocytes (%) (Auto) 5.1 L 10.0-50.0 % Monocytes (%) (Auto) 4.9 0.0-12.0 % Eosinophils (%) (Auto) 1.4 0.0-7.0 % Basophils (%) (Auto) 0.2 0.0-2.0 % Neutrophils # (Auto) 9.2 H 1.6-8.6 10 ^3/uL Lymphocytes # (Auto) 0.5 0.4-5.4 10 ^3/uL Monocytes # (Auto) 0.5 0-1.3 10 ^3/uL Eosinophils # (Auto) 0.1 0-0.8 10 ^3/uL Basophils # (Auto) 0 0-0.2 10 ^3/uL Nucleated Red Blood Cells 0.0 % Sodium Level 145 136-145 mmol/L Potassium Level 3.6 3.5-5.1 mmol/L Chloride Level 114 H 98-107 mmol/L Carbon Dioxide Level 21 20-31 mmol/L Anion Gap 10 5-15 Blood Urea Nitrogen 36 #H 9-23 mg/dL Creatinine 2.03 H 0.700-1.30 mg/dL Glomerular Filtration Rate Calc 37 >90 mL/min BUN/Creatinine Ratio 17.7 10.0-20.0 Serum Glucose 201 H 74-106 mg/dL Calcium Level 8.9 8.7-10.4 mg/dL Total Bilirubin 0.3 0.2-1.0 mg/dL Aspartate Amino Transferase (AST) 30 13-40 U/L Alanine Aminotransferase (ALT) 23 7-40 U/L Alkaline Phosphatase 108 46-116 U/L Total Protein 6.3 5.7-8.2 g/dL Albumin 3.9 3.2-4.8 g/dL Random Vancomycin Level 12.4 H 5-10 ug/mL Test 03/15/25 18:26 03/15/25 17:47 03/15/25 15:23 03/15/25 14:29 Range/Units POC Glucose 126 H 70-106 mg/dl Blood Gas Specimen Type Arterial Blood Gas Sample Site Right radial Blood Gas Patient Temperature 37.0 Arterial Blood Date Drawn [id number] Arterial Blood pH 7.291 L 7.350-7.450 Arterial Blood Partial Pressure CO2 31.3 L 35.0-48.0 mmHg Arterial Blood Partial Pressure O2 131.8 H 83.0-108.0 mmHg Arterial Blood HCO3 14.7 L 21.0-28.0 mmol/L Arterial Blood Oxygen Saturation 98.3 H 94.0-98.0 % Arterial Blood Base Excess -10.6 L -2.0-3.0 mmol/L Arterial Blood Oxyhemoglobin 97.4 94.0-98.0 % Arterial Blood Carboxyhemoglobin 0.5 0.5-1.5 % Arterial Blood Methemoglobin 0.4 0.0-1.5 % Carmelo Test Yes Blood Gas Total Hemoglobin 12.00 L 13.5-17.5 g/dL Blood Gas Set Respiration Rate 16.0 Blood Gas Modality Vent - ac FiO2 % 30.0 Blood Gas Tidal Volume 450.0 Blood Gas PEEP or CPAP 5.0 Troponin I High Sensitivity 4 </=54 ng/L Urine Color Dark-yellow Yellow Urine Clarity Clear Clear Urine pH 5.5 5.0-9.0 Urine Specific [place] 1.020 1.001-1.035 Urine Protein 1+ H Negative Urine Ketones Negative Negative Urine Blood Negative Negative /uL Urine Nitrite Negative Negative Urine Bilirubin Negative Negative Urine Urobilinogen Normal Negative mg/dL Urine Leukocyte Esterase Negative Negative /uL Urine RBC <1 0 - 3 /hpf Urine Microscopic WBC 1 0-3 /HPF Urine Squamous Epithelial Cells Few <5 /hpf Urine Bacteria None seen None Seen /hpf Urine Hyaline Casts Many 0 - 2 /lpf Urine Mucus Few None Seen Urine Glucose 3+ H Normal mg/dL Urine Opiates Screen Neg NEGATIVE Urine Fentanyl Screen Neg NEGATIVE Urine Barbiturates Screen Neg NEGATIVE Urine Phencyclidine Screen Neg NEGATIVE Urine Amphetamines Screen Neg NEGATIVE Urine Benzodiazepines Screen Pos NEGATIVE Urine Cocaine Screen Neg NEGATIVE Urine Cannabinoids Screen Neg NEGATIVE Test 03/15/25 14:27 03/15/25 13:16 Range/Units White Blood Count 12.6 H 4.4-10.8 10^3/uL Red Blood Count 4.55 4.5-5.90 10^6/uL Hemoglobin 13.1 L 13.5-17.5 g/dL Hematocrit 39.9 L 41.0-53.0 % Mean Corpuscular Volume 87.7 80.0-100.0 fL Mean Corpuscular Hemoglobin 28.7 28.0-32.0 pg Mean Corpuscular Hemoglobin Concent 32.8 32.0-36.0 g/dL Red Cell Distribution Width 14.5 H 11.8-14.3 % Platelet Count 354 140-450 10^3/uL Mean Platelet Volume 7.2 6.9-10.8 fL Neutrophils (%) (Auto) 37.0-80.0 % Lymphocytes (%) (Auto) 10.0-50.0 % Monocytes (%) (Auto) 0.0-12.0 % Basophils (%) (Auto) 0.0-2.0 % Neutrophils # (Auto) 1.6-8.6 10 ^3/uL Lymphocytes # (Auto) 0.4-5.4 10 ^3/uL Monocytes # (Auto) 0-1.3 10 ^3/uL Differential Total Cells Counted 100.0 100 Neutrophils % (Manual) 86 H 37.0-80.0 Band Neutrophils % (Manual) 6 Lymphocytes % (Manual) 3 L 10.0-50.0 Monocytes % (Manual) 5 0-12 Eosinophils % (Manual) 0 0-7 Basophils % (Manual) 0 0.0-2.0 Metamyelocytes % (manual) 0 Myelocytes % (Manual) 0 Promyelocytes % (Manual) 0 Blast Cells % (Manual) 0 Reactive Lymphocytes 0 Platelet Estimate Adequate Anisocytosis (manual) Slight Erythrocyte Sedimentation Rate 18 0-20 mm/hr Prothrombin Time 10.3 9.3-11.8 sec Prothrombin Time INR 0.97 0.9-1.15 Activated Partial Thromboplast Time 30.4 24.5-34.5 SEC Sodium Level 144 136-145 mmol/L Potassium Level 4.3 3.5-5.1 mmol/L Chloride Level 118 H 98-107 mmol/L Carbon Dioxide Level 17 L 20-31 mmol/L Anion Gap 9 5-15 Blood Urea Nitrogen 62 H 9-23 mg/dL Creatinine 3.16 H 0.700-1.30 mg/dL Glomerular Filtration Rate Calc 22 >90 mL/min BUN/Creatinine Ratio 19.6 10.0-20.0 Serum Glucose 106 74-106 mg/dL Hemoglobin A1c 5.6 <5.7 % A1C Lactic Acid Level 1.7 0.4-2.0 mmol/L Calcium Level 9.2 8.7-10.4 mg/dL Total Bilirubin 0.3 0.2-1.0 mg/dL Aspartate Amino Transferase (AST) 26 13-40 U/L Alanine Aminotransferase (ALT) 28 7-40 U/L Alkaline Phosphatase 120 H 46-116 U/L Ammonia < 10 L 11-32 umol/L Troponin I High Sensitivity 4 </=54 ng/L C-Reactive Protein High Sensitivity 2.32 H <1.0 mg/dL Total Protein 6.0 5.7-8.2 g/dL Albumin 3.9 3.2-4.8 g/dL Plasma/Serum Blood Alcohol < 3.0 <10 mg/dL Blood Gas Specimen Type Arterial Blood Gas Sample Site Right brachial Blood Gas Patient Temperature 37.0 Arterial Blood Date Drawn [id number] Arterial Blood pH 7.183 *L 7.350-7.450 Arterial Blood Partial Pressure CO2 33.7 L 35.0-48.0 mmHg Arterial Blood Partial Pressure O2 92.5 83.0-108.0 mmHg Arterial Blood HCO3 12.4 L 21.0-28.0 mmol/L Arterial Blood Oxygen Saturation 96.6 94.0-98.0 % Arterial Blood Base Excess -14.8 L -2.0-3.0 mmol/L Arterial Blood Oxyhemoglobin 95.3 94.0-98.0 % Arterial Blood Carboxyhemoglobin 1.0 0.5-1.5 % Arterial Blood Methemoglobin 0.3 0.0-1.5 % Carmelo Test N/a Blood Gas Total Hemoglobin 13.20 L 13.5-17.5 g/dL Blood Gas Set Respiration Rate 16.0 Blood Gas Modality Vent - ac FiO2 % 30.0 Blood Gas Tidal Volume 450.0 Blood Gas PEEP or CPAP 5.0 Blood Gas Critical Value Read Back Yes Blood Gas Notified Whom Dr. kuhn Blood Gas Notified Time [id number] Blood Gas Notified By Zack rossi, payal Assessment 59-year-old male presents to the hospital with acute change in mental state. We will subsequently intubated due to hypoxic respiratory failure Acute kidney injury hemodynamically mediated in the setting of hypotension Chronic kidney disease unspecified baseline is unknown Acute respiratory failure suspicious for pneumonia Peripheral vascular disease with a history of BKA, and diabetes. Clinically patient is at this time appears mildly hypervolemic blood pressure is elevated at patient's showing pulmonary congestion on chest x-ray. We will discontinue IV fluids particularly sodium bicarbonate now that acidosis has resolved. Patient has increased urine output we will give small dose of diuretic to improve and increase urine output Monitor electrolytes Strict Is&Os via [place] Plan discussed with: Other AB SCHAEFFER MD Mar 16, 2025 10:07
[2025-03-16] MEDS: FUROSEMIDE 40 MG/4 ML VIAL IV ONE (10:27)
[2025-03-16] MEDS: POTASSIUM CHL 20MEQ/100ML 100 ML IV SCH (10:27)
[2025-03-16] MEDS: PROPOFOL 100 ML IV SCH (11:00)
[2025-03-16] MEDS: fentaNYL Drip 2500mCg/250mlNS 250 ML IV SCH (11:16)
--- NOTE | 2025-03-16 13:18 | DVHPN2 ---
Subjective Patient intubated and sedated. Reviewed: Care Plan, H&P, Labs, Medications Changes from previous H/P or p: No Changes General: Per HPI Objective Vitals Vital Signs Date Time Temp Pulse Resp B/P (MAP) Pulse Ox O2 Delivery O2 Flow Rate FiO2 03/16/25 12:00 19 98 Mechanical Ventilator+ 30 30 03/16/25 12:00 99.3 93 134/71 (92) 99.3 03/15/25 11:45 6 Intake/Output Intake and Output 03/16/25 07:00 Intake Total 4449.0833 ml Output Total 2350 ml Balance 2099.0833 ml Intake Oral 0 ml IV Total 4449.0833 ml Output Urine Total 2350 ml General Appearance: Other (Intubated and sedated) HEENT: Atraumatic, PERRLA Lungs: Clear to auscultation, Normal air movement, Other (Mechanical ventilation) Cardiovascular: Normal S1, Normal S2 Neuro: Other (Unable to assess) Skin: Dry, Intact Medications Current Medications Medications Dose Ordered Sig/Niesha Route Start Time Stop Time Status Last Admin Dose Admin Midazolam HCl 50 ml @ 1 mls/hr Q24H IV 03/15/25 11:45 03/16/25 10:35 15 MLS/HR Norepinephrine Bitartrate 250 ml @ 3.75 mls/hr Q24H IV 03/15/25 12:00 Vancomycin HCl 200 ml @ 200 mls/hr Q12HR IV 03/15/25 22:00 UNV Vancomycin HCl 0 ml @ 0 mls/hr UD IV 03/15/25 15:15 Piperacillin Sod/ Tazobactam Sod 100 ml @ 25 mls/hr Q8HR IV 03/15/25 22:00 03/16/25 05:39 25 MLS/HR Ondansetron HCl 4 mg Q4HP PRN IV 03/15/25 17:15 Acetaminophen 650 mg Q6HP PRN PO 03/15/25 17:15 Nitroglycerin 0.4 mg Q5MINP PRN SL 03/15/25 17:15 Morphine Sulfate 2 mg Q30M PRN IV 03/15/25 17:15 Enoxaparin Sodium 30 mg DAILY SC 03/16/25 10:00 03/16/25 09:33 30 MG Diagnostic Test (Pha) 1 strip Q6HR 03/15/25 18:00 6/1/25 11:24 1 STRIP Insulin Human Regular Q6HR SC 03/15/25 18:00 03/16/25 11:24 3 UNITS Dextrose 50 ml UD PRN IV 03/15/25 17:15 Atorvastatin Calcium 20 mg HS NG 03/15/25 22:00 03/15/25 21:39 20 MG Folic Acid 1 mg DAILY PO 03/16/25 10:00 03/16/25 09:34 1 MG Potassium Chloride 100 ml @ 50 mls/hr Q2H IV 03/16/25 10:15 03/16/25 14:14 03/16/25 12:21 50 MLS/HR Propofol 100 ml @ 2.331 mls/ hr Q24H IV 03/16/25 11:00 Fentanyl Citrate 250 ml @ 2.5 mls/hr Q24H IV 03/16/25 11:00 03/16/25 11:16 2.5 MLS/HR Laboratory Results Laboratory Tests 03/16/25 04:56 Chemistry Test 03/15/25 14:27 03/16/25 04:56 Albumin 3.9 g/dL (3.2-4.8) 3.9 g/dL (3.2-4.8) Calcium Level 9.2 mg/dL (8.7-10.4) 8.9 mg/dL (8.7-10.4) Total Protein 6.0 g/dL (5.7-8.2) 6.3 g/dL (5.7-8.2) Magnesium Level 1.6 mg/dL (1.6-2.6) Coagulation Test 03/15/25 14:27 Prothrombin Time 10.3 sec (9.3-11.8) Prothrombin Time INR 0.97 (0.9-1.15) Activated Partial Thromboplast Time 30.4 SEC (24.5-34.5) LFT Test 03/15/25 14:27 03/16/25 04:56 Alanine Aminotransferase (ALT) 28 U/L (7-40) 23 U/L (7-40) Alkaline Phosphatase 120 U/L (46-116) H 108 U/L (46-116) Aspartate Amino Transferase (AST) 26 U/L (13-40) 30 U/L (13-40) Total Bilirubin 0.3 mg/dL (0.2-1.0) 0.3 mg/dL (0.2-1.0) HgA1c, TSH Test 03/15/25 14:27 Hemoglobin A1c 5.6 % A1C (<5.7) Urinalysis Test 03/15/25 14:29 Urine Color Dark-yellow (Yellow) Urine Clarity Clear (Clear) Urine pH 5.5 (5.0-9.0) Urine Specific [place] 1.020 (1.001-1.035) Urine Protein 1+ (Negative) H Urine Ketones Negative (Negative) Urine Blood Negative /uL (Negative) Urine Nitrite Negative (Negative) Urine Bilirubin Negative (Negative) Urine Urobilinogen Normal mg/dL (Negative) Urine Leukocyte Esterase Negative /uL (Negative) Urine RBC <1 /hpf (0 - 3) Urine Microscopic WBC 1 /HPF (0-3) Urine Squamous Epithelial Cells Few /hpf (<5) Urine Bacteria None seen /hpf (None Seen) Urine Hyaline Casts Many /lpf (0 - 2) Urine Mucus Few (None Seen) Urine Glucose 3+ mg/dL (Normal) H Blood Gas Results Test 03/15/25 13:16 03/15/25 17:47 03/16/25 06:54 Arterial Blood pH 7.183 (7.350-7.450) 7.291 (7.350-7.450) 7.404 (7.350-7.450) FiO2 % 30.0 30.0 30.0 Microbiology Microbiology Date/Time Source Procedure Growth Status 03/15/25 14:29 Urine - [place] Urine Culture - Preliminary Resulted 03/15/25 13:25 Sputum Gram Stain Pending Resulted 03/15/25 13:25 Sputum Respiratory Culture - Preliminary Resulted Labs and/or images reviewed: Labs reviewed by me, Image(s) reviewed by me Assessment/Plan Assessment/Plan Impression: -metabolic encephalopathy probably secondary to prescribed medications -? Over medication to prescribed meds -schizophrenia -acute respiratory failure with mechanical ventilation -cirrhosis -acute kidney injury, vasomotor nephropathy -history of CVA Plan: -continue current sedation -IV hydration -nephrology consultation: Recommendations reviewed -hold previously prescribed antipsychotics -PUD, DVT prophylaxis -continue prophylactic antibiotics at this time, reassess for deescalation or discontinuing tomorrow -sedation vacation, CPAP trial tomorrow Critical care time spent with patient discussing and formulating plan of care: 40 minutes. This does not include time spent performing procedures. This medical document was created using an electronic medical record system with [employer] dictation system. Although this document has been carefully reviewed, there may still be some phonetic and typographical errors. These areas are purely typographical due to imperfections of the software programs, and do not reflect any compromise in the patient's medical care. Plan discussed with: Patient, Other (RN) My Orders Orders - ALEXANDR ANDERSON NP Procedure Category Date Status Time Propofol (Diprivan) PHA 03/16/25 In Process 11:00 Fentanyl Drip PHA 03/16/25 In Process 2500mcg/250mlns 11:00 Rass Sedation Scale ARTUR 03/16/25 In Process 10:51 Date of Service: Mar 16, 2025 Billing Provider: ALEXANDR ANDERSON NP Common Visit Codes: [id number] CARE 30-74 MIN ALEXANDR ANDERSON NP Mar 16, 2025 13:18
[2025-03-16] MEDS: DEXMEDETOMIDINE HCL IN D5W 100 ML IV SCH (14:00)
--- NOTE | 2025-03-16 14:15 | DVHPN2 ---
Progress Note - Dictate Date Seen: Mar 16, 2025 Has the PT tested + for MRSA If YES, has PT been informed?: No Medical Necessity Reason Pt with a Central, PICC or Fol: No vital signs Vital Sign Date Time Temp Pulse Resp B/P (MAP) Pulse Ox O2 Delivery O2 Flow Rate FiO2 03/16/25 12:00 19 98 Mechanical Ventilator+ 30 30 03/16/25 12:00 99.3 93 134/71 (92) 99.3 03/15/25 11:45 6 Total Intake and Output 03/15/25 03/15/25 03/16/25 15:00 23:00 07:00 Intake Total 2606.0833 ml 878 ml 965 ml Output Total 2350 ml Balance 2606.0833 ml 878 ml -1385 ml medications Current Medications Medications Dose Ordered Sig/Niesha Route Start Time Stop Time Status Last Admin Dose Admin Midazolam HCl 50 ml @ 1 mls/hr Q24H IV 03/15/25 11:45 03/16/25 13:26 15 MLS/HR Norepinephrine Bitartrate 250 ml @ 3.75 mls/hr Q24H IV 03/15/25 12:00 Vancomycin HCl 200 ml @ 200 mls/hr Q12HR IV 03/15/25 22:00 UNV Vancomycin HCl 0 ml @ 0 mls/hr UD IV 03/15/25 15:15 Piperacillin Sod/ Tazobactam Sod 100 ml @ 25 mls/hr Q8HR IV 03/15/25 22:00 03/16/25 05:39 25 MLS/HR Ondansetron HCl 4 mg Q4HP PRN IV 03/15/25 17:15 Acetaminophen 650 mg Q6HP PRN PO 03/15/25 17:15 Nitroglycerin 0.4 mg Q5MINP PRN SL 03/15/25 17:15 Morphine Sulfate 2 mg Q30M PRN IV 03/15/25 17:15 Enoxaparin Sodium 30 mg DAILY SC 03/16/25 10:00 03/16/25 09:33 30 MG Diagnostic Test (Pha) 1 strip Q6HR 03/15/25 18:00 03/16/25 11:24 1 STRIP Insulin Human Regular Q6HR SC 03/15/25 18:00 03/16/25 11:24 3 UNITS Dextrose 50 ml UD PRN IV 03/15/25 17:15 Atorvastatin Calcium 20 mg HS NG 03/15/25 22:00 03/15/25 21:39 20 MG Folic Acid 1 mg DAILY PO 03/16/25 10:00 03/16/25 09:34 1 MG Potassium Chloride 100 ml @ 50 mls/hr Q2H IV 03/16/25 10:15 03/16/25 14:14 03/16/25 12:21 50 MLS/HR Propofol 100 ml @ 2.331 mls/ hr Q24H IV 03/16/25 11:00 Fentanyl Citrate 250 ml @ 2.5 mls/hr Q24H IV 03/16/25 11:00 03/16/25 11:16 2.5 MLS/HR laboratory and microbiology Laboratory Tests 03/16/25 04:56 Test 03/16/25 04:56 Range/Units Serum Glucose 201 H 74-106 mg/dL Assessment/Plan Abalone Diver rounds The patient is a 59-year-old gentleman history of bipolar disorder presented with altered mental status Intubated for airway protection Impression Acute hypoxemic respiratory failure Altered mental status Mechanical ventilation Acute kidney injury Labs and imaging studies reviewed Initial ABG Metabolic acidosis Ventilator changes made Follow up ABG pH 7.40 pCO2 37 PO2 97 On AC volume control rate of 16 tidal volume 450 peep of 5 FiO2= 30% Imaging chest x-ray reviewed Management plan Sedation holiday in a.m./weaning trial Pressure support 705 Extubate when ready Otherwise continue supportive care/bronchodilators Empiric antibiotics IV fluids Restart psych meds GI and DVT prophylaxis Critical care time 35 minutes Plan discussed with: Other (rn) EVELINE BAUMANN MD Mar 16, 2025 14:15
[2025-03-16] MEDS: ACETAMINOPHEN 325 MG TAB PO PRN (16:32)
[2025-03-16] MEDS: VANCOMYCIN 750mg/150ml 150 ML IV SCH (17:59)
[2025-03-17] VITALS (109 sets, daily range): BP systolic 80–156; BP diastolic 51–86; PULSE 86–115; RESP 11–24; TEMP 98.6–99.7; O2SAT 95–100
--- NOTE | 2025-03-17 04:47 | DVH ---
CHEST RADIOGRAPH Indication: RESPIRATORY FAILURE Technique: Single frontal view of the chest was obtained Comparison: XY CHEST PORTABLE on DOS: 03/16/25 FINDINGS: Lines and Tubes: Endotracheal tube terminates 4.1 cm above the lucrecia. The enteric tube terminates in the stomach. Lungs: Pulmonary interstitial prominence similar to prior study. No focal consolidation. Pleura: No effusion. No pneumothorax. Cardiomediastinal contours: Cardiomegaly. Bones: No acute osseous abnormality. IMPRESSION: 1. Pulmonary vascular congestion similar to prior study. 2. Stable cardiomegaly.
[2025-03-17 06:17] LABS: Base Excess -2.3 mmol/L (-2.0-3.0)
[2025-03-17 09:00] LABS: Basophils # (auto) 0 10 ^3/uL (0-0.2); Basophils % (auto) 0.3 % (0.0-2.0); Eosinophils # (auto) 0.1 10 ^3/uL (0-0.8); Eosinophils % (auto) 0.7 % (0.0-7.0); Hematocrit 38.6 % (41.0-53.0); Hemoglobin 12.6 g/dL (13.5-17.5); Lymphocytes # (auto) 0.7 10 ^3/uL (0.4-5.4); Lymphocytes % (auto) 5.1 % (10.0-50.0); Mean Corpuscular Hemoglobin 29.4 pg (28.0-32.0); Mean Corpuscular Hgb Conc. 32.7 g/dL (32.0-36.0); Mean Corpuscular Volume 89.8 fL (80.0-100.0); Monocytes # (auto) 0.9 10 ^3/uL (0-1.3); Monocytes % (auto) 6.1 % (0.0-12.0); Neutrophils # (auto) 12.5 10 ^3/uL (1.6-8.6); Neutrophils % (auto) 87.8 % (37.0-80.0); Nucleated Red Blood Cells % 0.1 %; Platelet Count (auto) 357 10^3/uL (140-450); Red Cell Distribution Width 14.8 % (11.8-14.3); White Blood Cell 14.3 10^3/uL (4.4-10.8)
[2025-03-17 09:17] LABS: Alanine Aminotransferase 24 U/L (7-40); Albumin 3.7 g/dL (3.2-4.8); Alkaline Phosphatase 103 U/L (46-116); Anion Gap 9 (5-15); BUN/Creatinine Ratio 13.1 (10.0-20.0); Blood Urea Nitrogen 20 mg/dL (9-23); Calcium 8.7 mg/dL (8.7-10.4); Carbon Dioxide 21 mmol/L (20-31); Magnesium 1.7 mg/dL (1.6-2.6); Potassium 4.4 mmol/L (3.5-5.1); Sodium 143 mmol/L (136-145); Total Protein 6.5 g/dL (5.7-8.2)
[2025-03-17 09:22] LABS: Aspartate Aminotransferase 47 U/L (13-40); Bilirubin, Total 0.2 mg/dL (0.2-1.0); Chloride 113 mmol/L (98-107); Glucose 171 mg/dL (74-106)
--- NOTE | 2025-03-17 09:50 | DVHPN2 ---
Progress Note Date Seen: Mar 17, 2025 Has the PT tested + for MRSA If YES, has PT been informed?: No Medical Necessity Reason Pt with a Central, PICC or Fol: No Subjective Review of Systems: RESPIRATORY:Abnormal Other Systems: Patient seen and examined by myself today in follow-up Objective vital signs Vital Sign Date Time Temp Pulse Resp B/P (MAP) Pulse Ox O2 Delivery O2 Flow Rate FiO2 03/17/25 08:00 99 16 98 Mechanical Ventilator+ 30 30 03/17/25 07:55 96/58 (71) 03/17/25 04:00 99.0 99.0 03/15/25 11:45 6 Total Intake and Output 03/16/25 03/16/25 03/17/25 15:00 23:00 07:00 Intake Total 641.5 ml 435 ml 189.213 ml Output Total 3425 ml 700 ml Balance 641.5 ml -2990 ml -510.787 ml medications Current Medications Medications Dose Ordered Sig/Niesha Route Start Time Stop Time Status Last Admin Dose Admin Midazolam HCl 50 ml @ 1 mls/hr Q24H IV 03/15/25 11:45 03/16/25 23:44 15 MLS/HR Norepinephrine Bitartrate 250 ml @ 3.75 mls/hr Q24H IV 03/15/25 12:00 Vancomycin HCl 200 ml @ 200 mls/hr Q12HR IV 03/15/25 22:00 UNV Vancomycin HCl 0 ml @ 0 mls/hr UD IV 03/15/25 15:15 Piperacillin Sod/ Tazobactam Sod 100 ml @ 25 mls/hr Q8HR IV 03/15/25 22:00 03/17/25 05:53 25 MLS/HR Ondansetron HCl 4 mg Q4HP PRN IV 03/15/25 17:15 Acetaminophen 650 mg Q6HP PRN PO 03/15/25 17:15 03/16/25 16:32 650 MG Nitroglycerin 0.4 mg Q5MINP PRN SL 03/15/25 17:15 Morphine Sulfate 2 mg Q30M PRN IV 03/15/25 17:15 Enoxaparin Sodium 30 mg DAILY SC 03/16/25 10:00 03/16/25 09:33 30 MG Diagnostic Test (Pha) 1 strip Q6HR 03/15/25 18:00 03/17/25 05:53 1 STRIP Insulin Human Regular Q6HR SC 03/15/25 18:00 03/17/25 05:57 3 UNITS Dextrose 50 ml UD PRN IV 03/15/25 17:15 Atorvastatin Calcium 20 mg HS NG 03/15/25 22:00 03/16/25 22:37 20 MG Folic Acid 1 mg DAILY PO 03/16/25 10:00 03/16/25 09:34 1 MG Propofol 100 ml @ 2.331 mls/ hr Q24H IV 03/16/25 11:00 Fentanyl Citrate 250 ml @ 2.5 mls/hr Q24H IV 03/16/25 11:00 03/16/25 11:16 2.5 MLS/HR Vancomycin HCl 150 ml @ 150 mls/hr Q24H IV 03/16/25 18:00 03/16/25 17:59 150 MLS/HR Examination: LUNGS:Normal, CVS:Normal, MSK:Normal laboratory and microbiology Laboratory Tests 03/17/25 08:48 Test 03/17/25 08:48 Range/Units Serum Glucose 171 H 74-106 mg/dL Microbiology Date/Time Source Procedure Growth Status 03/16/25 02:59 Nose MRSA Screen - Final Complete 03/15/25 14:29 Urine - [place] Urine Culture - Preliminary Resulted 03/15/25 14:27 Blood Blood Culture - Preliminary NO GROWTH AFTER 24 HOURS OF INCUBATION. Resulted 03/15/25 13:25 Sputum Gram Stain - Final Resulted 03/15/25 13:25 Sputum Respiratory Culture - Preliminary Resulted Problem List/Assessment/Plan Problem List/Assessment/Plan Acute kidney injury superimposed Chronic Kidney Disease secondary hemodynamic mediated Acute respiratory failure, patient intubated on ventilator Diabetes mellitus type 2 Peripheral vascular disease Recommendations Kidney function is improving Increased urine output [place] catheter Strict I&Os Check urine electrolytes and urine protein excretion Kidneys reported within normal limits on the CT scan Insulin sliding scale We will continue to follow up Plan discussed with: Other (Nurse) My Orders My Orders Orders - RA CARCAMO MD Procedure Category Date Status Time Urine Sodium LAB 03/17/25 Logged 09:47 Urine LAB 03/17/25 Logged Protein/Creatinine Urinalysis LAB 03/17/25 Logged 09:47 Urine Creatinine LAB 03/17/25 Logged 09:47 Phosphorus LAB 03/17/25 Logged 09:47 Magnesium LAB 03/17/25 Logged 09:47 Parathyroid Hormone LAB 03/17/25 Logged Intact 09:47 RA CARCAMO MD Mar 17, 2025 09:50
[2025-03-17] MEDS: POTASSIUM CHL 20MEQ/100ML 100 ML IV ONE (10:21)
[2025-03-17] MEDS: FUROSEMIDE 20 MG/2 ML VIAL IV ONE (10:22)
--- NOTE | 2025-03-17 11:45 | DVHPN2 ---
Subjective Patient intubated and sedated. Reviewed: Care Plan, H&P, Labs, Medications Changes from previous H/P or p: No Changes General: Per HPI Objective Vitals Vital Signs Date Time Temp Pulse Resp B/P (MAP) Pulse Ox O2 Delivery O2 Flow Rate FiO2 03/17/25 11:00 99.1 103 17 135/78 (97) 98 99.1 03/17/25 10:45 30 03/17/25 10:30 Mechanical Ventilator+ 03/15/25 11:45 6 Intake/Output Intake and Output 03/17/25 07:00 Intake Total 1265.713 ml Output Total 4125 ml Balance -2859.287 ml Intake Oral 55 ml IV Total 1210.713 ml Tube Feeding 0 ml Output Urine Total 4125 ml General Appearance: mild distress, Other (Patient on Precedex drip.) HEENT: Atraumatic, PERRLA Lungs: Clear to auscultation, Normal air movement, Other (Mechanical ventilation) Cardiovascular: Normal S1, Normal S2 Neuro: Other (Unable to assess) Skin: Dry, Intact Psych/Mental Status: Other (Patient chemically sedated) Medications Current Medications Medications Dose Ordered Sig/Niesha Route Start Time Stop Time Status Last Admin Dose Admin Midazolam HCl 50 ml @ 1 mls/hr Q24H IV 03/15/25 11:45 03/16/25 23:44 15 MLS/HR Norepinephrine Bitartrate 250 ml @ 3.75 mls/hr Q24H IV 03/15/25 12:00 Vancomycin HCl 200 ml @ 200 mls/hr Q12HR IV 03/15/25 22:00 UNV Vancomycin HCl 0 ml @ 0 mls/hr UD IV 03/15/25 15:15 Piperacillin Sod/ Tazobactam Sod 100 ml @ 25 mls/hr Q8HR IV 03/15/25 22:00 03/17/25 05:53 25 MLS/HR Ondansetron HCl 4 mg Q4HP PRN IV 03/15/25 17:15 Acetaminophen 650 mg Q6HP PRN PO 03/15/25 17:15 03/16/25 16:32 650 MG Nitroglycerin 0.4 mg Q5MINP PRN SL 03/15/25 17:15 Morphine Sulfate 2 mg Q30M PRN IV 03/15/25 17:15 Diagnostic Test (Pha) 1 strip Q6HR 03/15/25 18:00 03/17/25 11:29 1 STRIP Insulin Human Regular Q6HR SC 03/15/25 18:00 03/17/25 11:33 2 UNITS Dextrose 50 ml UD PRN IV 03/15/25 17:15 Atorvastatin Calcium 20 mg HS NG 03/15/25 22:00 03/16/25 22:37 20 MG Folic Acid 1 mg DAILY PO 03/16/25 10:00 03/17/25 10:22 1 MG Propofol 100 ml @ 2.331 mls/ hr Q24H IV 03/16/25 11:00 Fentanyl Citrate 250 ml @ 2.5 mls/hr Q24H IV 03/16/25 11:00 03/16/25 11:16 2.5 MLS/HR Vancomycin HCl 150 ml @ 150 mls/hr Q24H IV 03/16/25 18:00 03/16/25 17:59 150 MLS/HR Enoxaparin Sodium 40 mg DAILY SC 03/18/25 10:00 Laboratory Results Laboratory Tests 03/17/25 08:48 Chemistry Test 03/17/25 08:48 Albumin 3.7 g/dL (3.2-4.8) Calcium Level 8.7 mg/dL (8.7-10.4) Magnesium Level 1.7 mg/dL (1.6-2.6) Phosphorus Level 3.8 mg/dL (2.4-5.1) Total Protein 6.5 g/dL (5.7-8.2) Cardiac Markers Test 03/17/25 10:54 B-Type Natriuretic Peptide 23.51 pg/mL (0-100) LFT Test 03/17/25 08:48 Alanine Aminotransferase (ALT) 24 U/L (7-40) Alkaline Phosphatase 103 U/L (46-116) Aspartate Amino Transferase (AST) 47 U/L (13-40) H Total Bilirubin 0.2 mg/dL (0.2-1.0) Urinalysis Test 03/15/25 14:29 Urine Color Dark-yellow (Yellow) Urine Clarity Clear (Clear) Urine pH 5.5 (5.0-9.0) Urine Specific [place] 1.020 (1.001-1.035) Urine Protein 1+ (Negative) H Urine Ketones Negative (Negative) Urine Blood Negative /uL (Negative) Urine Nitrite Negative (Negative) Urine Bilirubin Negative (Negative) Urine Urobilinogen Normal mg/dL (Negative) Urine Leukocyte Esterase Negative /uL (Negative) Urine RBC <1 /hpf (0 - 3) Urine Microscopic WBC 1 /HPF (0-3) Urine Squamous Epithelial Cells Few /hpf (<5) Urine Bacteria None seen /hpf (None Seen) Urine Hyaline Casts Many /lpf (0 - 2) Urine Mucus Few (None Seen) Urine Glucose 3+ mg/dL (Normal) H Blood Gas Results Test 03/17/25 06:09 Arterial Blood pH 7.416 (7.350-7.450) FiO2 % 30.0 Microbiology Microbiology Date/Time Source Procedure Growth Status 03/16/25 02:59 Nose MRSA Screen - Final Complete 03/15/25 14:29 Urine - [place] Urine Culture - Preliminary Resulted 03/15/25 14:27 Blood Blood Culture - Preliminary NO GROWTH AFTER 24 HOURS OF INCUBATION. Resulted 03/15/25 13:25 Sputum Gram Stain - Final Resulted 03/15/25 13:25 Sputum Respiratory Culture - Preliminary Resulted Labs and/or images reviewed: Labs reviewed by me, Image(s) reviewed by me Assessment/Plan Assessment/Plan Impression: -metabolic encephalopathy probably secondary to prescribed medications -? Over medication to prescribed meds -schizophrenia -acute respiratory failure with mechanical ventilation -cirrhosis -acute kidney injury, vasomotor nephropathy -history of CVA Plan: Events: Plans for spontaneous breathing trial this a.m.. Currently on CPAP, with patient's somewhat sedated and not able to perform all weaning parameters. Discussed plan of care with primary nurse and RT. Continue CPAP at this time until patient awakens. -IV hydration -nephrology consultation: Recommendations reviewed -hold previously prescribed antipsychotics -PUD, DVT prophylaxis -continue antibiotics at this time Repeat labs and chest x-ray in a.m. Critical care time spent with patient discussing and formulating plan of care: 40 minutes. This does not include time spent performing procedures. This medical document was created using an electronic medical record system with [employer] system. Although this document has been carefully reviewed, there may still be some phonetic and typographical errors. These areas are purely typographical due to imperfections of the software programs, and do not reflect any compromise in the patient's medical care. Plan discussed with: Patient, Other (RN) My Orders Orders - ALEXANDR ANDERSON NP Procedure Category Date Status Time Cpap Trial For Am ORDERS 03/17/25 Transmitted 08:00 Cpap/Sed Vacation Med ORDERS 03/17/25 Transmitted Weaning 08:00 Apply Barrier Cream ARTUR 03/16/25 In Process 12:00 * Dietary Consult CONS 03/16/25 Transmitted 17:03 Date of Service: Mar 17, 2025 Billing Provider: ALEXANDR ANDERSON NP Common Visit Codes: [id number] CARE 30-74 MIN ALEXANDR ANDERSON NP Mar 17, 2025 11:45
[2025-03-17 11:59] LABS: Hepatitis A Ab IgM Negative; Hepatitis B Core IgM Negative (Negative); Hepatitis B Surface Antigen Negative (Negative); Hepatitis C Antibody Negative (Negative)
[2025-03-17 12:06] LABS: Urine Bacteria FEW /hpf (None Seen); Urine Blood 1+ /uL (Negative); Urine Budding Yeast FEW /hpf (None Seen); Urine Clarity Clear (Clear); Urine Color Colorless (Yellow); Urine Hyaline Cast FEW /lpf (0 - 2); Urine Protein, UAD 1+ (Negative); Urine Specific Gravity 1.007 (1.001-1.035); Urine Squamous Epithelial Cell FEW /hpf (<5); Urine Urobilinogen Normal (Negative); Urine WBC 4 /HPF (0-3); Urine pH 5.5 (5.0-9.0)
[2025-03-17 12:09] LABS: Protein, Urine 54.9 mg/dL (1-14)
[2025-03-17 12:12] LABS: Creatinine, Urine 13.71 mg/dL (30.0-125.0)
--- NOTE | 2025-03-17 21:26 | DVHPN2 ---
Progress Note - Dictate Date Seen: Mar 17, 2025 Has the PT tested + for MRSA If YES, has PT been informed?: No Medical Necessity Reason Pt with a Central, PICC or Fol: Yes The following are medically ne: Jean Catheter Reason for jean catheter: Strict I&O Subjective Patient seen and examined at bedside. Sedated, intubated on mechanical ventilator. Overnight events reviewed. The patient is a 59-year-old gentleman with history of bipolar disorder who presented with altered mental status, was intubated for airway protection. vital signs Vital Sign Date Time Temp Pulse Resp B/P (MAP) Pulse Ox O2 Delivery O2 Flow Rate FiO2 03/17/25 20:30 94 16 108/63 (78) 98 03/17/25 20:00 99.0 99.0 03/17/25 17:55 Mechanical Ventilator+ 30 30 03/15/25 11:45 6 Total Intake and Output 03/16/25 03/16/25 03/17/25 15:00 23:00 07:00 Intake Total 641.5 ml 435 ml 189.213 ml Output Total 3425 ml 700 ml Balance 641.5 ml -2990 ml -510.787 ml medications Current Medications Medications Dose Ordered Sig/Niesha Route Start Time Stop Time Status Last Admin Dose Admin Midazolam HCl 50 ml @ 1 mls/hr Q24H IV 03/15/25 11:45 03/17/25 15:36 4 MLS/HR Norepinephrine Bitartrate 250 ml @ 3.75 mls/hr Q24H IV 03/15/25 12:00 Vancomycin HCl 200 ml @ 200 mls/hr Q12HR IV 03/15/25 22:00 UNV Vancomycin HCl 0 ml @ 0 mls/hr UD IV 03/15/25 15:15 Piperacillin Sod/ Tazobactam Sod 100 ml @ 25 mls/hr Q8HR IV 03/15/25 22:00 03/17/25 14:47 25 MLS/HR Ondansetron HCl 4 mg Q4HP PRN IV 03/15/25 17:15 Acetaminophen 650 mg Q6HP PRN PO 03/15/25 17:15 03/16/25 16:32 650 MG Nitroglycerin 0.4 mg Q5MINP PRN SL 03/15/25 17:15 Morphine Sulfate 2 mg Q30M PRN IV 03/15/25 17:15 Diagnostic Test (Pha) 1 strip Q6HR 03/15/25 18:00 03/17/25 17:45 1 STRIP Insulin Human Regular Q6HR SC 03/15/25 18:00 03/17/25 11:33 2 UNITS Dextrose 50 ml UD PRN IV 03/15/25 17:15 Atorvastatin Calcium 20 mg HS NG 03/15/25 22:00 03/16/25 22:37 20 MG Folic Acid 1 mg DAILY PO 03/16/25 10:00 03/17/25 10:22 1 MG Propofol 100 ml @ 2.331 mls/ hr Q24H IV 03/16/25 11:00 Fentanyl Citrate 250 ml @ 2.5 mls/hr Q24H IV 03/16/25 11:00 03/17/25 15:39 10 MLS/HR Vancomycin HCl 150 ml @ 150 mls/hr Q24H IV 03/16/25 18:00 03/17/25 17:46 150 MLS/HR Enoxaparin Sodium 40 mg DAILY SC 03/18/25 10:00 objective Gen.: Patient lying in bed in medical ICU. Sedated, intubated on mechanical ventilator. Head: Normocephalic, atraumatic. Eyes: PERRLA. Ears: Normal external anatomy. Throat: Endotracheal tube and orogastric tube in place. Neck: Supple, trachea midline. Chest: Transmitted breath sounds bilaterally. Decreased air entry bilaterally. No wheezing. Bibasilar crackles. Cardiovascular: Positive S1, positive S2. Regular rate and rhythm. Abdomen: Positive bowel sounds in all 4 quadrants. Soft, nontender, nondistended. : Jean in place. Normal external genitalia. Rectal: Deferred. Skin: Warm, dry. Intact. Extremities: 2+ radial pulses bilaterally. No lower extremity edema. Neuro: Sedated. laboratory and microbiology Laboratory Tests 03/17/25 08:48 Test 03/17/25 08:48 Range/Units Serum Glucose 171 H 74-106 mg/dL Assessment/Plan Impression: Acute hypoxemic respiratory failure On mechanical ventilator Acute metabolic encephalopathy Cirrhosis Acute kidney injury Cerebrovascular accident Events: Patient seen at bedside. Remains on vent support On AC volume control; rate of 16, tidal volume 450, PEEP of 5 and FiO2 30% Sedated on Versed/Fentanyl Continue antibiotics Taper sedation CPAP in the AM. Lovenox for DVT prophylaxis Monitor renal function Monitor electrolytes. Supplement as necessary. Potassium supplementation ABG reviewed; compensated. Chest x-ray reviewed, demonstrates pulmonary vascular congestion. Stable cardiomegaly. Labs and imaging studies reviewed Plan: s/p intubation on mechanical ventilator. On AC volume control; rate of 16, tidal volume 450, PEEP of 5 and FiO2 30% Titrate FIO2 to keep O2 saturation above 90%. VAP bundle. Daily ABG and CXR while intubated Sedate for ventilator synchrony Sedation holiday in a.m./weaning trial Pressure support 04/19 Extubate when ready Otherwise, continue supportive care/bronchodilators Antibiotics Pressors as necessary for hemodynamic support Titrate to keep mean arterial pressure greater than 65 mmHg Monitor renal function Monitor electrolytes. Supplement as necessary. Monitor ins and outs. GI and DVT prophylaxis Prognosis: Poor given patient's multiple co-morbidities. Condition: Critical Rest of plan per hospitalist and other consultants. A total of 35 minutes of critical care time was spent reviewing the patient record, examining the patient, making a diagnostic and therapeutic plan, discussing this plan with the medical personnel, following up on diagnostic studies and following the patient for clinical stability excluding any and all procedures. At least 50% of this time was spent in direct, [id number] contact. Thank you, CHANTEL Bruce, for allowing me to participate in this patient's care. Further recommendations will depend on the patient's clinical course. Please do not hesitate to contact me if you have any questions or concerns. This medical document was created using an electronic medical record system with [employer] dictation system. Although these documentations are being carefully reviewed, there may still be some phonetic and typographical changes. The errors are purely typographical, due to imperfection on the software program, and do not reflect any compromise in the patient's medical care. Dietary Evaluation Review Comments: 1) TF Glucerna 1.2 Steven @ 70ml/hr x 24 hr (goal). Start @ 20ml/hr, increase 10ml/hr Q4H until goal rate is reached. TF at goal volume provides 100% energy & protein needs - 2016 kcal, 93 gm protein, 1352 ml free water 2) Water flush 170ml Q6H if allowed 3) TPN if NPO>7 days 4) Vit C 200mg daily, zinc sulfate 220mg BID x 10 days, J Carlos 1 pk BID, MVI w/ minerals 1 tab daily 5) Monitor I/O, weight trend, lab values and skin integrity Expected Outcomes/Goals: To meet >75% estimated needs Fu 2-3 days Plan discussed with: Other (RN) Critical Care Time(min): 35 CHELY CHARLES MD Mar 17, 2025 21:26
[2025-03-18] VITALS (70 sets, daily range): BP systolic 85–133; BP diastolic 45–74; PULSE 88–120; RESP 14–27; TEMP 97–99.1; O2SAT 94–100
[2025-03-18 05:07] LABS: Basophils # (auto) 0.1 10 ^3/uL (0-0.2); Basophils % (auto) 0.9 % (0.0-2.0); Eosinophils # (auto) 0.2 10 ^3/uL (0-0.8); Neutrophils # (auto) 8.8 10 ^3/uL (1.6-8.6); Nucleated Red Blood Cells % 0.1 %
[2025-03-18 05:12] LABS: Hematocrit 39.2 % (41.0-53.0); Lymphocytes # (auto) 1.6 10 ^3/uL (0.4-5.4); Lymphocytes % (auto) 13.4 % (10.0-50.0); Mean Corpuscular Hgb Conc. 33.3 g/dL (32.0-36.0); Mean Corpuscular Volume 87.2 fL (80.0-100.0); Monocytes # (auto) 1.2 10 ^3/uL (0-1.3); Neutrophils % (auto) 73.7 % (37.0-80.0); Platelet Count (auto) 454 10^3/uL (140-450); Red Blood Cells 4.49 10^6/uL (4.5-5.90); Red Cell Distribution Width 14.6 % (11.8-14.3); White Blood Cell 11.9 10^3/uL (4.4-10.8)
--- NOTE | 2025-03-18 05:39 | DVH ---
EXAM: XR Chest, 1 View CLINICAL INDICATION: PULMONARY CONGESTION TECHNIQUE: Frontal view of the chest. COMPARISON: XY CHEST PORTABLE on DOS: 03/17/25, XY CHEST PORTABLE on DOS: 03/16/25, XY CHEST PORTABLE o n DOS: 03/15/25 FINDINGS: LUNGS AND PLEURAL SPACES: See below. HEART: Cardiomegaly with mild congestion. MEDIASTINUM: Unremarkable. Normal mediastinal contour. BONES/JOINTS: Unremarkable. No acute fracture. TUBES, LINES AND DEVICES: The endotracheal tube (ETT) is in satisfactory position. Enteric tube ti p cannot be seen but is below the diaphragm. OTHER FINDINGS: . . . . . . IMPRESSION: Cardiomegaly with mild congestion.
[2025-03-18 07:50] LABS: Potassium 3.7 mmol/L (3.5-5.1)
[2025-03-18 07:51] LABS: Anion Gap 15 (5-15); Calcium 9.3 mg/dL (8.7-10.4); Carbon Dioxide 21 mmol/L (20-31)
[2025-03-18 07:56] LABS: BUN/Creatinine Ratio 15.9 (10.0-20.0)
[2025-03-18 07:57] LABS: Blood Urea Nitrogen 28 mg/dL (9-23); Chloride 112 mmol/L (98-107); Sodium 148 mmol/L (136-145)
[2025-03-18 08:22] LABS: Base Excess -5.1 mmol/L (-2.0-3.0)
[2025-03-18 08:45] LABS: Glucose 123 mg/dL (74-106)
--- NOTE | 2025-03-18 08:46 | DVHPN2 ---
Subjective Patient intubated and sedated. Reviewed: Care Plan, H&P, Labs, Medications Changes from previous H/P or p: No Changes General: Per HPI Objective Vitals Vital Signs Date Time Temp Pulse Resp B/P (MAP) Pulse Ox O2 Delivery O2 Flow Rate FiO2 03/18/25 08:22 96 16 95/60 (72) 97 30 03/18/25 06:00 Mechanical Ventilator+ 03/18/25 04:00 98.2 98.2 Intake/Output Intake and Output 03/18/25 07:00 Intake Total 726.312 ml Output Total 1450 ml Balance -723.688 ml Intake Oral 0 ml IV Total 726.312 ml Tube Feeding 0 ml Output Urine Total 1450 ml Stool Total 0 ml General Appearance: mild distress, Other (Patient intubated sedated with Versed and fentanyl) HEENT: Atraumatic, PERRLA Lungs: Clear to auscultation, Normal air movement, Other (Mechanical ventilation) Cardiovascular: Normal S1, Normal S2 Abdomen: Soft, No tenderness Neuro: Other (Unable to assess) Skin: Dry, Intact Psych/Mental Status: Other (Patient chemically sedated) Medications Current Medications Medications Dose Ordered Sig/Niesha Route Start Time Stop Time Status Last Admin Dose Admin Midazolam HCl 50 ml @ 1 mls/hr Q24H IV 03/15/25 11:45 03/18/25 03:43 7 MLS/HR Norepinephrine Bitartrate 250 ml @ 3.75 mls/hr Q24H IV 03/15/25 12:00 Vancomycin HCl 200 ml @ 200 mls/hr Q12HR IV 03/15/25 22:00 UNV Vancomycin HCl 0 ml @ 0 mls/hr UD IV 03/15/25 15:15 Piperacillin Sod/ Tazobactam Sod 100 ml @ 25 mls/hr Q8HR IV 03/15/25 22:00 03/18/25 05:59 25 MLS/HR Ondansetron HCl 4 mg Q4HP PRN IV 03/15/25 17:15 Acetaminophen 650 mg Q6HP PRN PO 03/15/25 17:15 03/16/25 16:32 650 MG Nitroglycerin 0.4 mg Q5MINP PRN SL 03/15/25 17:15 Morphine Sulfate 2 mg Q30M PRN IV 03/15/25 17:15 Diagnostic Test (Pha) 1 strip Q6HR 03/15/25 18:00 03/18/25 05:59 1 STRIP Insulin Human Regular Q6HR SC 03/15/25 18:00 03/17/25 11:33 2 UNITS Dextrose 50 ml UD PRN IV 03/15/25 17:15 Atorvastatin Calcium 20 mg HS NG 03/15/25 22:00 03/17/25 22:42 20 MG Folic Acid 1 mg DAILY PO 03/16/25 10:00 03/17/25 10:22 1 MG Propofol 100 ml @ 2.331 mls/ hr Q24H IV 03/16/25 11:00 Fentanyl Citrate 250 ml @ 2.5 mls/hr Q24H IV 03/16/25 11:00 03/17/25 15:39 10 MLS/HR Vancomycin HCl 150 ml @ 150 mls/hr Q24H IV 03/16/25 18:00 03/17/25 17:46 150 MLS/HR Enoxaparin Sodium 40 mg DAILY SC 03/18/25 10:00 Laboratory Results Laboratory Tests 03/18/25 04:39 Chemistry Test 03/17/25 08:48 03/18/25 04:39 Albumin 3.7 g/dL (3.2-4.8) Calcium Level 8.7 mg/dL (8.7-10.4) 9.3 mg/dL (8.7-10.4) Magnesium Level 1.7 mg/dL (1.6-2.6) Phosphorus Level 3.8 mg/dL (2.4-5.1) Total Protein 6.5 g/dL (5.7-8.2) Cardiac Markers Test 03/17/25 10:54 B-Type Natriuretic Peptide 23.51 pg/mL (0-100) LFT Test 03/17/25 08:48 Alanine Aminotransferase (ALT) 24 U/L (7-40) Alkaline Phosphatase 103 U/L (46-116) Aspartate Amino Transferase (AST) 47 U/L (13-40) H Total Bilirubin 0.2 mg/dL (0.2-1.0) Urinalysis Test 03/15/25 14:29 03/17/25 11:40 Urine Mucus Few (None Seen) Urine Color Colorless (Yellow) Urine Clarity Clear (Clear) Urine pH 5.5 (5.0-9.0) Urine Specific [place] 1.007 (1.001-1.035) Urine Protein 1+ (Negative) H Urine Ketones Negative (Negative) Urine Blood 1+ /uL (Negative) H Urine Nitrite Negative (Negative) Urine Bilirubin Negative (Negative) Urine Urobilinogen Normal mg/dL (Negative) Urine Leukocyte Esterase Negative /uL (Negative) Urine RBC 8 /hpf (0 - 3) Urine Microscopic WBC 4 /HPF (0-3) H Urine Squamous Epithelial Cells Few /hpf (<5) Urine Bacteria Few /hpf (None Seen) H Urine Hyaline Casts Few /lpf (0 - 2) Urine Yeast (Budding) Few /hpf (None Seen) Urine Creatinine 13.71 mg/dL (30.0-125.0) L Urine Protein/Creatinine Ratio 4.00 Urine Sodium 144 mmol/L (40-220) Urine Glucose 3+ mg/dL (Normal) H Urine Total Protein 54.9 mg/dL (1-14) H Blood Gas Results Test 03/18/25 08:09 Arterial Blood pH 7.380 (7.350-7.450) FiO2 % 30.0 Microbiology Microbiology Date/Time Source Procedure Growth Status 03/16/25 02:59 Nose MRSA Screen - Final Complete 03/15/25 14:29 Urine - [place] Urine Culture - Final Complete 03/15/25 14:27 Blood Blood Culture - Preliminary NO GROWTH AFTER 48 HOURS OF INCUBATION. Resulted 03/15/25 13:25 Sputum Gram Stain - Final Resulted 03/15/25 13:25 Sputum Respiratory Culture - Preliminary Resulted Labs and/or images reviewed: Labs reviewed by me, Image(s) reviewed by me Assessment/Plan Assessment/Plan Impression: -metabolic encephalopathy probably secondary to prescribed medications -? Over medication to prescribed meds -schizophrenia -acute respiratory failure with mechanical ventilation -cirrhosis -acute kidney injury, vasomotor nephropathy -history of CVA Plan: Events: Patient was on CPAP yesterday with persistent altered mental status. Patient is now ready sedated heavily on Versed and fentanyl. Proceed with weaning sedation and spontaneous breathing trial today. Discussed with primary nurse. -bronchodilators -IV hydration -nephrology consultation: Recommendations reviewed -hold previously prescribed antipsychotics -PUD, DVT prophylaxis -continue antibiotics at this time Repeat labs and chest x-ray in a.m. Critical care time spent with patient discussing and formulating plan of care: 40 minutes. This does not include time spent performing procedures. This medical document was created using an electronic medical record system with [employer] dictation system. Although this document has been carefully reviewed, there may still be some phonetic and typographical errors. These areas are purely typographical due to imperfections of the software programs, and do not reflect any compromise in the patient's medical care. Plan discussed with: Patient, Other (RN) My Orders Orders - ALEXANDR ANDERSON NP Procedure Category Date Status Time Basic Metabolic Panel LAB 03/18/25 In Process 07:30 Basic Metabolic Panel LAB 03/19/25 Verified 05:00 Basic Metabolic Panel LAB 03/20/25 Verified 05:00 Basic Metabolic Panel LAB 03/21/25 Verified 05:00 Complete Blood Count LAB 03/19/25 Verified 05:00 Complete Blood Count LAB 03/20/25 Verified 05:00 Complete Blood Count LAB 03/21/25 Verified 05:00 Date of Service: Mar 18, 2025 Billing Provider: ALEXANDR ANDERSON NP Common Visit Codes: [id number] CARE 30-74 MIN ALEXANDR ANDERSON NP Mar 18, 2025 08:46
--- NOTE | 2025-03-18 09:36 | DVHPN2 ---
Progress Note Date Seen: Mar 18, 2025 Has the PT tested + for MRSA If YES, has PT been informed?: No Medical Necessity Reason Pt with a Central, PICC or Fol: Yes The following are medically ne: Jean Catheter Reason for jean catheter: Strict I&O Subjective Review of Systems: RESPIRATORY:Abnormal Other Systems: Patient seen and examined by myself today in follow-up, patient remained intubated on ventilator Objective vital signs Vital Sign Date Time Temp Pulse Resp B/P (MAP) Pulse Ox O2 Delivery O2 Flow Rate FiO2 03/18/25 08:22 96 16 95/60 (72) 97 30 03/18/25 06:00 Mechanical Ventilator+ 03/18/25 04:00 98.2 98.2 Total Intake and Output 03/17/25 03/17/25 03/18/25 15:00 23:00 07:00 Intake Total 254.312 ml 290 ml 182 ml Output Total 1100 ml 350 ml Balance 254.312 ml -810 ml -168 ml medications Current Medications Medications Dose Ordered Sig/Niesha Route Start Time Stop Time Status Last Admin Dose Admin Midazolam HCl 50 ml @ 1 mls/hr Q24H IV 03/15/25 11:45 03/18/25 03:43 7 MLS/HR Norepinephrine Bitartrate 250 ml @ 3.75 mls/hr Q24H IV 03/15/25 12:00 Vancomycin HCl 200 ml @ 200 mls/hr Q12HR IV 03/15/25 22:00 UNV Vancomycin HCl 0 ml @ 0 mls/hr UD IV 03/15/25 15:15 Piperacillin Sod/ Tazobactam Sod 100 ml @ 25 mls/hr Q8HR IV 03/15/25 22:00 03/18/25 05:59 25 MLS/HR Ondansetron HCl 4 mg Q4HP PRN IV 03/15/25 17:15 Acetaminophen 650 mg Q6HP PRN PO 03/15/25 17:15 03/16/25 16:32 650 MG Nitroglycerin 0.4 mg Q5MINP PRN SL 03/15/25 17:15 Morphine Sulfate 2 mg Q30M PRN IV 03/15/25 17:15 Diagnostic Test (Pha) 1 strip Q6HR 03/15/25 18:00 03/18/25 05:59 1 STRIP Insulin Human Regular Q6HR SC 03/15/25 18:00 03/17/25 11:33 2 UNITS Dextrose 50 ml UD PRN IV 03/15/25 17:15 Atorvastatin Calcium 20 mg HS NG 03/15/25 22:00 03/17/25 22:42 20 MG Folic Acid 1 mg DAILY PO 03/16/25 10:00 03/17/25 10:22 1 MG Propofol 100 ml @ 2.331 mls/ hr Q24H IV 03/16/25 11:00 Fentanyl Citrate 250 ml @ 2.5 mls/hr Q24H IV 03/16/25 11:00 03/17/25 15:39 10 MLS/HR Vancomycin HCl 150 ml @ 150 mls/hr Q24H IV 03/16/25 18:00 03/17/25 17:46 150 MLS/HR Enoxaparin Sodium 40 mg DAILY SC 03/18/25 10:00 Albuterol 2.5 mg Q3HPRN PRN NEB 03/18/25 08:45 Albuterol 2.5 mg Q6HWA NEB 03/18/25 12:00 Ipratropium [place] 0.5 mg Q3HPRN PRN NEB 03/18/25 08:45 Ipratropium [place] 0.5 mg Q6HWA NEB 03/18/25 12:00 Examination: LUNGS:Normal, CVS:Normal, MSK:Normal laboratory and microbiology Laboratory Tests 03/18/25 04:39 Test 03/18/25 04:39 Range/Units Serum Glucose 123 H 74-106 mg/dL Microbiology Date/Time Source Procedure Growth Status 03/16/25 02:59 Nose MRSA Screen - Final Complete 03/15/25 14:29 Urine - [place] Urine Culture - Final Complete 03/15/25 14:27 Blood Blood Culture - Preliminary NO GROWTH AFTER 48 HOURS OF INCUBATION. Resulted 03/15/25 13:25 Sputum Gram Stain - Final Resulted 03/15/25 13:25 Sputum Respiratory Culture - Preliminary Resulted Problem List/Assessment/Plan Problem List/Assessment/Plan Acute kidney injury superimposed Chronic Kidney Disease secondary hemodynamic mediated ATN, FeNa > 2% Acute respiratory failure, patient intubated on ventilator Diabetes mellitus type 2 Nephrotic proteinuria likely diabetic nephropathy Peripheral vascular disease Hyponatremia due to insensible water loss Recommendations Kidney function is improving Increased urine output Jean catheter Strict I&Os Increase free water Kidneys reported within normal limits on the CT scan Insulin sliding scale We will continue to follow up Plan discussed with: Other (Nurse) Dietary Evaluation Review Comments: 1) TF Glucerna 1.2 Steven @ 70ml/hr x 24 hr (goal). Start @ 20ml/hr, increase 10ml/hr Q4H until goal rate is reached. TF at goal volume provides 100% energy & protein needs - 2016 kcal, 93 gm protein, 1352 ml free water 2) Water flush 170ml Q6H if allowed 3) TPN if NPO>7 days 4) Vit C 200mg daily, zinc sulfate 220mg BID x 10 days, J Carlos 1 pk BID, MVI w/ minerals 1 tab daily 5) Monitor I/O, weight trend, lab values and skin integrity Expected Outcomes/Goals: To meet >75% estimated needs Fu 2-3 days RA CARCAMO MD Mar 18, 2025 09:36
[2025-03-18] MEDS: ENOXAPARIN SOD 40 MG/0.4 ML SYRINGE SC SCH (09:55)
[2025-03-18] MEDS: ALBUTEROL SULF 2.5 MG/0.5ML(0.5%) NEB SOLN NEB SCH (11:59)
[2025-03-18] MEDS: IPRATROPIUM BROM 0.5 MG/2.5ML INH SOL NEB SCH (11:59)
[2025-03-18] MEDS: SOD CHL 0.45% 1,000 ML IV SCH (12:37)
--- NOTE | 2025-03-18 13:01 | MEDREC ---
[facility] Intervention Section I [facility] Intervention: Deescalate AB based on CS (PLEASE CONSIDER DE-ESCALATION BASED ON CULTURE RESULTS ) STANLEY ARNETT PHARMACIST Mar 18, 2025 13:01
--- NOTE | 2025-03-18 18:06 | DVH ---
CLINICAL HISTORY: RIGHT ARM SWELLING TECHNIQUE: Color and duplex doppler imaging of the right upper extremity veins and right subclavian v ein was performed. Vessel compression if possible was also performed. WID: COMPARISON: None FINDINGS: The right internal jugular, axillary, basilic, cephalic, brachial , radial, and ulnar veins are mcnamara nt and demonstrate normal compressibility and flow. The right subclavian is patent. There is subcutaneous edema in the right upper extremity IMPRESSION: 1. NO SONOGRAPHIC EVIDENCE FOR DEEP VENOUS THROMBOSIS IN THE RIGHT UPPER EXTREMITY VEINS. 2. Subcutaneous edema in the right upper extremity.
--- NOTE | 2025-03-18 23:10 | DVHPN2 ---
Progress Note - Dictate Date Seen: Mar 18, 2025 Has the PT tested + for MRSA If YES, has PT been informed?: No Medical Necessity Reason Pt with a Central, PICC or Fol: Yes The following are medically ne: Jean Catheter Reason for jean catheter: Strict I&O Subjective Patient seen and examined at bedside. Intubated on mechanical ventilator. Overnight events reviewed. The patient is a 59-year-old gentleman with history of bipolar disorder who presented with altered mental status, was intubated for airway protection. vital signs Vital Sign Date Time Temp Pulse Resp B/P (MAP) Pulse Ox O2 Delivery O2 Flow Rate FiO2 03/18/25 22:18 96 16 133/56 (81) 97 30 03/18/25 22:00 Mechanical Ventilator+ 03/18/25 20:00 99.1 99.1 Total Intake and Output 03/17/25 03/17/25 03/18/25 15:00 23:00 07:00 Intake Total 254.312 ml 290 ml 225 ml Output Total 1100 ml 350 ml Balance 254.312 ml -810 ml -125 ml medications Current Medications Medications Dose Ordered Sig/Niesha Route Start Time Stop Time Status Last Admin Dose Admin Midazolam HCl 50 ml @ 1 mls/hr Q24H IV 03/15/25 11:45 03/18/25 03:43 7 MLS/HR Norepinephrine Bitartrate 250 ml @ 3.75 mls/hr Q24H IV 03/15/25 12:00 Vancomycin HCl 200 ml @ 200 mls/hr Q12HR IV 03/15/25 22:00 UNV Vancomycin HCl 0 ml @ 0 mls/hr UD IV 03/15/25 15:15 Piperacillin Sod/ Tazobactam Sod 100 ml @ 25 mls/hr Q8HR IV 03/15/25 22:00 03/18/25 21:48 25 MLS/HR Ondansetron HCl 4 mg Q4HP PRN IV 03/15/25 17:15 Acetaminophen 650 mg Q6HP PRN PO 03/15/25 17:15 03/16/25 16:32 650 MG Nitroglycerin 0.4 mg Q5MINP PRN SL 03/15/25 17:15 Morphine Sulfate 2 mg Q30M PRN IV 03/15/25 17:15 Diagnostic Test (Pha) 1 strip Q6HR 03/15/25 18:00 03/18/25 17:48 1 STRIP Insulin Human Regular Q6HR SC 03/15/25 18:00 03/18/25 17:48 3 UNITS Dextrose 50 ml UD PRN IV 03/15/25 17:15 Atorvastatin Calcium 20 mg HS NG 03/15/25 22:00 03/18/25 21:48 20 MG Folic Acid 1 mg DAILY PO 03/16/25 10:00 03/18/25 09:42 1 MG Propofol 100 ml @ 2.331 mls/ hr Q24H IV 03/16/25 11:00 Fentanyl Citrate 250 ml @ 2.5 mls/hr Q24H IV 03/16/25 11:00 03/17/25 15:39 10 MLS/HR Vancomycin HCl 150 ml @ 150 mls/hr Q24H IV 03/16/25 18:00 03/18/25 17:34 150 MLS/HR Enoxaparin Sodium 40 mg DAILY SC 03/18/25 10:00 03/18/25 09:55 40 MG Albuterol 2.5 mg Q3HPRN PRN NEB 03/18/25 08:45 Albuterol 2.5 mg Q6HWA [facility] 03/18/25 12:00 03/18/25 18:45 2.5 MG Ipratropium [place] 0.5 mg Q3HPRN PRN NEB 03/18/25 08:45 Ipratropium [place] 0.5 mg Q6HWA [facility] 03/18/25 12:00 03/18/25 18:46 0.5 MG Sodium Chloride 1,000 ml @ 100 mls/hr Q10H IV 03/18/25 10:30 03/18/25 12:37 100 MLS/HR objective Gen.: Patient lying in bed in medical ICU. Intubated on mechanical ventilator. Head: Normocephalic, atraumatic. Eyes: PERRLA. Ears: Normal external anatomy. Throat: Endotracheal tube and orogastric tube in place. Neck: Supple, trachea midline. Chest: Transmitted breath sounds bilaterally. Decreased air entry bilaterally. No wheezing. Bibasilar crackles. Cardiovascular: Positive S1, positive S2. Regular rate and rhythm. Abdomen: Positive bowel sounds in all 4 quadrants. Soft, nontender, nondistended. : Jean in place. Normal external genitalia. Rectal: Deferred. Skin: Warm, dry. Intact. Extremities: 2+ radial pulses bilaterally. No lower extremity edema. Neuro: Off sedation. laboratory and microbiology Laboratory Tests 03/18/25 04:39 Test 03/18/25 04:39 Range/Units Serum Glucose 123 H 74-106 mg/dL Assessment/Plan Impression: Acute hypoxemic respiratory failure On mechanical ventilator Acute metabolic encephalopathy Cirrhosis Acute kidney injury Cerebrovascular accident Events: Patient seen at bedside. Remains on vent support On AC volume control; rate of 16, tidal volume 450, PEEP of 5 and FiO2 30% Off Versed/Fentanyl Off Precedex Increased ET tube secretions - monitor Continue antibiotics Plan for CPAP trial, PS 8/PEEP of 5. Lovenox for DVT prophylaxis ABG reviewed; compensated. Chest x-ray reviewed, demonstrates cardiomegaly with mild congestion. Labs and imaging studies reviewed Plan: s/p intubation on mechanical ventilator. On AC volume control; rate of 16, tidal volume 450, PEEP of 5 and FiO2 30% Titrate FIO2 to keep O2 saturation above 90%. VAP bundle. Daily ABG and CXR while intubated Off sedation Weaning trial Pressure support 8/5 Extubate when ready Otherwise, continue supportive care/bronchodilators Antibiotics Pressors as necessary for hemodynamic support Titrate to keep mean arterial pressure greater than 65 mmHg Monitor renal function Monitor electrolytes. Supplement as necessary. Monitor ins and outs. GI and DVT prophylaxis Prognosis: Poor given patient's multiple co-morbidities. Condition: Critical Rest of plan per hospitalist and other consultants. A total of 35 minutes of critical care time was spent reviewing the patient record, examining the patient, making a diagnostic and therapeutic plan, discussing this plan with the medical personnel, following up on diagnostic studies and following the patient for clinical stability excluding any and all procedures. At least 50% of this time was spent in direct, [id number] contact. Thank you, CHANTEL Bruce, for allowing me to participate in this patient's care. Further recommendations will depend on the patient's clinical course. Please do not hesitate to contact me if you have any questions or concerns. This medical document was created using an electronic medical record system with [employer] system. Although these documentations are being carefully reviewed, there may still be some phonetic and typographical changes. The errors are purely typographical, due to imperfection on the software program, and do not reflect any compromise in the patient's medical care. Dietary Evaluation Review Comments: 1) TF Glucerna 1.2 Steven @ 70ml/hr x 24 hr (goal). Start @ 20ml/hr, increase 10ml/hr Q4H until goal rate is reached. TF at goal volume provides 100% energy & protein needs - 2016 kcal, 93 gm protein, 1352 ml free water 2) Water flush 170ml Q6H if allowed 3) TPN if NPO>7 days 4) Vit C 200mg daily, zinc sulfate 220mg BID x 10 days, J Carlos 1 pk BID, MVI w/ minerals 1 tab daily 5) Monitor I/O, weight trend, lab values and skin integrity Expected Outcomes/Goals: To meet >75% estimated needs Fu 2-3 days Plan discussed with: Other (CHRIS Kendall) Critical Care Time(min): 35 CHELY CHARLES MD Mar 18, 2025 23:10
[2025-03-18] MEDS: IPRATROPIUM BROM 0.5 MG/2.5ML INH SOL NEB PRN (23:43)
[2025-03-18] MEDS: ALBUTEROL SULF 2.5 MG/0.5ML(0.5%) NEB SOLN NEB PRN (23:43)
[2025-03-19] VITALS (38 sets, daily range): BP systolic 100–147; BP diastolic 42–81; PULSE 77–114; RESP 12–39; TEMP 97.2–99; O2SAT 93–100
[2025-03-19 05:32] LABS: Eosinophils # (auto) 0.1 10 ^3/uL (0-0.8); Mean Corpuscular Volume 87.1 fL (80.0-100.0); Monocytes # (auto) 0.8 10 ^3/uL (0-1.3); Platelet Count (auto) 478 10^3/uL (140-450)
[2025-03-19 05:33] LABS: Anion Gap 15 (5-15); Potassium 3.8 mmol/L (3.5-5.1); Sodium 145 mmol/L (136-145)
[2025-03-19 05:35] LABS: Basophils # (auto) 0.1 10 ^3/uL (0-0.2); Basophils % (auto) 0.7 % (0.0-2.0); Hematocrit 34.5 % (41.0-53.0); Hemoglobin 11.6 g/dL (13.5-17.5); Lymphocytes # (auto) 0.7 10 ^3/uL (0.4-5.4); Lymphocytes % (auto) 7.7 % (10.0-50.0); Mean Corpuscular Hemoglobin 29.2 pg (28.0-32.0); Mean Corpuscular Hgb Conc. 33.5 g/dL (32.0-36.0); Monocytes % (auto) 8.8 % (0.0-12.0); Neutrophils # (auto) 7.9 10 ^3/uL (1.6-8.6); Neutrophils % (auto) 81.8 % (37.0-80.0); Red Blood Cells 3.96 10^6/uL (4.5-5.90); Red Cell Distribution Width 14.2 % (11.8-14.3); White Blood Cell 9.6 10^3/uL (4.4-10.8)
[2025-03-19 05:39] LABS: BUN/Creatinine Ratio 15.4 (10.0-20.0)
[2025-03-19 05:48] LABS: Blood Urea Nitrogen 25 mg/dL (9-23); Calcium 8.6 mg/dL (8.7-10.4); Carbon Dioxide 20 mmol/L (20-31); Chloride 110 mmol/L (98-107); Glucose 169 mg/dL (74-106)
[2025-03-19 06:12] LABS: Base Excess -6.1 mmol/L (-2.0-3.0)
[2025-03-19] MEDS: EPINEPHrine HCL 0.5 ML NEB ONE ×2 (08:20)
[2025-03-19] MEDS: DexAMETHasone SOD PHOS 10MG/1ML VIAL INJ IV ONE (08:25)
[2025-03-19] MEDS: EPINEPHrine HCL 0.5 ML NEB NEB ONE (08:25)
[2025-03-19] MEDS: cefTRIAXone 1GM/50ML D5W 50 ML IV SCH (09:30)
[2025-03-19 10:35] LABS: Base Excess -8.1 mmol/L (-2.0-3.0)
--- NOTE | 2025-03-19 10:37 | DVHPN2 ---
Subjective Patient is somewhat encephalopathic. Reviewed: Care Plan, H&P, Labs, Medications Changes from previous H/P or p: Changes General: Per HPI Objective Vitals Vital Signs Date Time Temp Pulse Resp B/P (MAP) Pulse Ox O2 Delivery O2 Flow Rate FiO2 03/19/25 09:41 20 100 Mechanical Ventilator+ 30 30 03/19/25 09:41 87 03/19/25 08:25 10 03/19/25 08:00 97.5 116/46 (69) 97.5 Intake/Output Intake and Output 03/19/25 07:00 Intake Total 2276.378 ml Output Total 1150 ml Balance 1126.378 ml Intake Oral 0 ml IV Total 2276.378 ml Output Urine Total 1150 ml General Appearance: Alert, mild distress, Other (Patient intubated) HEENT: Atraumatic, PERRLA Lungs: Clear to auscultation, Normal air movement, Other (Mechanical ventilation) Cardiovascular: Normal S1, Normal S2 Abdomen: Soft, No tenderness Neuro: Other (Unable to assess) Skin: Dry, Intact Psych/Mental Status: Other (Patient chemically sedated) Medications Current Medications Medications Dose Ordered Sig/Niesha Route Start Time Stop Time Status Last Admin Dose Admin Midazolam HCl 50 ml @ 1 mls/hr Q24H IV 03/15/25 11:45 03/18/25 03:43 7 MLS/HR Norepinephrine Bitartrate 250 ml @ 3.75 mls/hr Q24H IV 03/15/25 12:00 Vancomycin HCl 200 ml @ 200 mls/hr Q12HR IV 03/15/25 22:00 UNV Ondansetron HCl 4 mg Q4HP PRN IV 03/15/25 17:15 Acetaminophen 650 mg Q6HP PRN PO 03/15/25 17:15 03/16/25 16:32 650 MG Nitroglycerin 0.4 mg Q5MINP PRN SL 03/15/25 17:15 Morphine Sulfate 2 mg Q30M PRN IV 03/15/25 17:15 Diagnostic Test (Pha) 1 strip Q6HR 03/15/25 18:00 03/19/25 06:06 1 STRIP Insulin Human Regular Q6HR SC 03/15/25 18:00 03/19/25 06:07 3 UNITS Dextrose 50 ml UD PRN IV 03/15/25 17:15 Atorvastatin Calcium 20 mg HS NG 03/15/25 22:00 03/18/25 21:48 20 MG Folic Acid 1 mg DAILY PO 03/16/25 10:00 03/18/25 09:42 1 MG Propofol 100 ml @ 2.331 mls/ hr Q24H IV 03/16/25 11:00 Fentanyl Citrate 250 ml @ 2.5 mls/hr Q24H IV 03/16/25 11:00 03/17/25 15:39 10 MLS/HR Enoxaparin Sodium 40 mg DAILY SC 03/18/25 10:00 03/19/25 09:30 40 MG Albuterol 2.5 mg Q3HPRN PRN NEB 03/18/25 08:45 03/18/25 23:43 2.5 MG Albuterol 2.5 mg Q6HWA [facility] 03/18/25 12:00 03/19/25 05:57 2.5 MG Ipratropium [place] 0.5 mg Q3HPRN PRN NEB 03/18/25 08:45 03/18/25 23:43 0.5 MG Ipratropium [place] 0.5 mg Q6HWA [facility] 03/18/25 12:00 03/19/25 05:57 0.5 MG Sodium Chloride 1,000 ml @ 100 mls/hr Q10H IV 03/18/25 10:30 03/19/25 00:52 100 MLS/HR Ceftriaxone Sodium 50 ml @ 100 mls/hr DAILY@09 IV 03/19/25 09:00 03/19/25 09:30 100 MLS/HR Laboratory Results Laboratory Tests 03/19/25 04:41 Chemistry Test 03/19/25 04:41 Calcium Level 8.6 mg/dL (8.7-10.4) L HgA1c, TSH Test 03/19/25 04:41 Thyroid Stimulating Hormone (TSH) 1.64 uIU/mL (0.55-4.78) Urinalysis Test 03/15/25 14:29 03/17/25 11:40 Urine Mucus Few (None Seen) Urine Color Colorless (Yellow) Urine Clarity Clear (Clear) Urine pH 5.5 (5.0-9.0) Urine Specific [place] 1.007 (1.001-1.035) Urine Protein 1+ (Negative) H Urine Ketones Negative (Negative) Urine Blood 1+ /uL (Negative) H Urine Nitrite Negative (Negative) Urine Bilirubin Negative (Negative) Urine Urobilinogen Normal mg/dL (Negative) Urine Leukocyte Esterase Negative /uL (Negative) Urine RBC 8 /hpf (0 - 3) Urine Microscopic WBC 4 /HPF (0-3) H Urine Squamous Epithelial Cells Few /hpf (<5) Urine Bacteria Few /hpf (None Seen) H Urine Hyaline Casts Few /lpf (0 - 2) Urine Yeast (Budding) Few /hpf (None Seen) Urine Creatinine 13.71 mg/dL (30.0-125.0) L Urine Protein/Creatinine Ratio 4.00 Urine Sodium 144 mmol/L (40-220) Urine Glucose 3+ mg/dL (Normal) H Urine Total Protein 54.9 mg/dL (1-14) H Blood Gas Results Test 03/19/25 06:02 Arterial Blood pH 7.360 (7.350-7.450) FiO2 % 30.0 Microbiology Microbiology Date/Time Source Procedure Growth Status 03/16/25 02:59 Nose MRSA Screen - Final Complete 03/15/25 14:29 Urine - [place] Urine Culture - Final Complete 03/15/25 14:27 Blood Blood Culture - Preliminary NO GROWTH AFTER 72 HOURS OF INCUBATION. Resulted 03/15/25 13:25 Sputum Gram Stain - Final Complete 03/15/25 13:25 Respiratory Culture - Final Staphylococcus aureus Complete Labs and/or images reviewed: Labs reviewed by me, Image(s) reviewed by me Assessment/Plan Assessment/Plan Impression: -metabolic encephalopathy probably secondary to prescribed medications -? Over medication to prescribed meds -schizophrenia -acute respiratory failure with mechanical ventilation -cirrhosis -acute kidney injury, vasomotor nephropathy -history of CVA Plan: Events: Patient is self-extubated. I was in the step-down ICU when event occurred. Patient had no signs of hypoxia or signs of Bradypnea. Patient was placed on 15 L non-rebreather with saturation 100%. Patient did have some stridor, with treatment involving Decadron IV 6 mg, cool mist mask, as well as racemic epi. Re-evaluation of the patient by myself reveals patient to be in no respiratory distress. ABG after explantation reviewed. Patient will receive one amp of sodium bicarbonate. -bronchodilators -IV hydration -nephrology consultation: Recommendations reviewed -hold previously prescribed antipsychotics -PUD, DVT prophylaxis -continue antibiotics at this time Repeat labs and chest x-ray in a.m. Critical care time spent with patient discussing and formulating plan of care: 90 minutes. This does not include time spent performing procedures. This medical document was created using an electronic medical record system with [employer] dictation system. Although this document has been carefully reviewed, there may still be some phonetic and typographical errors. These areas are purely typographical due to imperfections of the software programs, and do not reflect any compromise in the patient's medical care. Plan discussed with: Patient, Other (RN) My Orders Orders - ALEXANDR ANDERSON NP Procedure Category Date Status Time Rt Upper Dvt US 03/18/25 Resulted 15:45 Ceftriaxone 1gm/50ml PHA 03/19/25 In Process D5w (Rocephin) 09:00 Vitamin B1 (Thiamine) LAB 03/19/25 In Process 07:44 Vitamin D 25-Hydroxy LAB 03/19/25 In Process D2 + D3 07:44 Abg W/ Co-Ox RT 03/19/25 Logged 09:20 Sodium Bicarb PHA 03/19/25 Transmitted 50meq/50ml Vial 10:45 Date of Service: Mar 19, 2025 Billing Provider: ALEXANDR ANDERSON NP Common Visit Codes: 40197-[id number] CARE 30-74 MIN, 42306-VAFGHXIE CARE-EACH +30MIN ALEXANDR ANDERSON NP Mar 19, 2025 10:37
[2025-03-19] MEDS: SODIUM BICARB 8.4% 50Meq/50ml SYR Vial IV ONE (10:52)
--- NOTE | 2025-03-19 10:54 | DVHPN2 ---
Progress Note Date Seen: Mar 19, 2025 Has the PT tested + for MRSA If YES, has PT been informed?: No Medical Necessity Reason Pt with a Central, PICC or Fol: Yes The following are medically ne: Jean Catheter Reason for jean catheter: Strict I&O Subjective Review of Systems: RESPIRATORY:Abnormal Other Systems: Patient seen and examined by myself today in follow-up, patient remained intubated on ventilator Objective vital signs Vital Sign Date Time Temp Pulse Resp B/P (MAP) Pulse Ox O2 Delivery O2 Flow Rate FiO2 03/19/25 09:41 20 100 Mechanical Ventilator+ 30 30 03/19/25 09:41 87 03/19/25 08:25 10 03/19/25 08:00 97.5 116/46 (69) 97.5 Total Intake and Output 03/18/25 03/18/25 03/19/25 15:00 23:00 07:00 Intake Total 441 ml 982.930 ml 852.448 ml Output Total 350 ml 800 ml Balance 441 ml 632.930 ml 52.448 ml medications Current Medications Medications Dose Ordered Sig/Niesha Route Start Time Stop Time Status Last Admin Dose Admin Midazolam HCl 50 ml @ 1 mls/hr Q24H IV 03/15/25 11:45 03/18/25 03:43 7 MLS/HR Norepinephrine Bitartrate 250 ml @ 3.75 mls/hr Q24H IV 03/15/25 12:00 Vancomycin HCl 200 ml @ 200 mls/hr Q12HR IV 03/15/25 22:00 UNV Ondansetron HCl 4 mg Q4HP PRN IV 03/15/25 17:15 Acetaminophen 650 mg Q6HP PRN PO 03/15/25 17:15 03/16/25 16:32 650 MG Nitroglycerin 0.4 mg Q5MINP PRN SL 03/15/25 17:15 Morphine Sulfate 2 mg Q30M PRN IV 03/15/25 17:15 Diagnostic Test (Pha) 1 strip Q6HR 03/15/25 18:00 03/19/25 06:06 1 STRIP Insulin Human Regular Q6HR SC 03/15/25 18:00 03/19/25 06:07 3 UNITS Dextrose 50 ml UD PRN IV 03/15/25 17:15 Atorvastatin Calcium 20 mg HS NG 03/15/25 22:00 03/18/25 21:48 20 MG Folic Acid 1 mg DAILY PO 03/16/25 10:00 03/18/25 09:42 1 MG Propofol 100 ml @ 2.331 mls/ hr Q24H IV 03/16/25 11:00 Fentanyl Citrate 250 ml @ 2.5 mls/hr Q24H IV 03/16/25 11:00 03/17/25 15:39 10 MLS/HR Enoxaparin Sodium 40 mg DAILY SC 03/18/25 10:00 03/19/25 09:30 40 MG Albuterol 2.5 mg Q3HPRN PRN NEB 03/18/25 08:45 03/18/25 23:43 2.5 MG Albuterol 2.5 mg Q6HWA NEB 03/18/25 12:00 03/19/25 05:57 2.5 MG Ipratropium [place] 0.5 mg Q3HPRN PRN NEB 03/18/25 08:45 03/18/25 23:43 0.5 MG Ipratropium [place] 0.5 mg Q6HWA [facility] 03/18/25 12:00 03/19/25 05:57 0.5 MG Sodium Chloride 1,000 ml @ 100 mls/hr Q10H IV 03/18/25 10:30 03/19/25 00:52 100 MLS/HR Ceftriaxone Sodium 50 ml @ 100 mls/hr DAILY@09 IV 03/19/25 09:00 03/19/25 09:30 100 MLS/HR Examination: LUNGS:Normal, CVS:Normal, MSK:Normal laboratory and microbiology Laboratory Tests 03/19/25 04:41 Test 03/19/25 04:41 Range/Units Serum Glucose 169 H 74-106 mg/dL Microbiology Date/Time Source Procedure Growth Status 03/16/25 02:59 Nose MRSA Screen - Final Complete 03/15/25 14:29 Urine - [place] Urine Culture - Final Complete 03/15/25 14:27 Blood Blood Culture - Preliminary NO GROWTH AFTER 72 HOURS OF INCUBATION. Resulted 03/15/25 13:25 Sputum Gram Stain - Final Complete 03/15/25 13:25 Respiratory Culture - Final Staphylococcus aureus Complete Problem List/Assessment/Plan Problem List/Assessment/Plan Acute kidney injury superimposed Chronic Kidney Disease secondary hemodynamic mediated ATN, FeNa > 2% Acute respiratory failure, patient intubated on ventilator Diabetes mellitus type 2 Nephrotic proteinuria likely diabetic nephropathy Peripheral vascular disease Hypernatremia due to insensible water loss Recommendations Kidney function is improving Increased urine output Hyponatremia slowly is improving Jean catheter Strict I&Os Increase free water Kidneys reported within normal limits on the CT scan Insulin sliding scale We will continue to follow up Plan discussed with: Other (Nurse) Dietary Evaluation Review Comments: 1) TF Glucerna 1.2 Steven @ 70ml/hr x 24 hr (goal). Start @ 20ml/hr, increase 10ml/hr Q4H until goal rate is reached. TF at goal volume provides 100% energy & protein needs - 2016 kcal, 93 gm protein, 1352 ml free water 2) Water flush 170ml Q6H if allowed 3) TPN if NPO>7 days 4) Vit C 200mg daily, zinc sulfate 220mg BID x 10 days, J [place] 1 pk BID, MVI w/ minerals 1 tab daily 5) Monitor I/O, weight trend, lab values and skin integrity Expected Outcomes/Goals: To meet >75% estimated needs Fu 2-3 days RA CARCAMO MD Mar 19, 2025 10:54
--- NOTE | 2025-03-19 20:27 | DVHPN2 ---
Progress Note - Dictate Date Seen: Mar 19, 2025 Has the PT tested + for MRSA If YES, has PT been informed?: No Medical Necessity Reason Pt with a Central, PICC or Fol: Yes The following are medically ne: Jean Catheter Reason for jean catheter: Strict I&O Subjective Patient seen and examined at bedside. S/p unplanned extubation, on supplemental oxygen Overnight events reviewed. The patient is a 59-year-old gentleman with history of bipolar disorder who presented with altered mental status, was intubated for airway protection. vital signs Vital Sign Date Time Temp Pulse Resp B/P (MAP) Pulse Ox O2 Delivery O2 Flow Rate FiO2 03/19/25 19:00 98.8 103 16 137/65 (89) 99 98.8 03/19/25 17:57 Mechanical Ventilator+ 30 30 03/19/25 17:50 0 Total Intake and Output 03/18/25 03/18/25 03/19/25 15:00 23:00 07:00 Intake Total 441 ml 982.930 ml 852.448 ml Output Total 350 ml 800 ml Balance 441 ml 632.930 ml 52.448 ml medications Current Medications Medications Dose Ordered Sig/Niesha Route Start Time Stop Time Status Last Admin Dose Admin Midazolam HCl 50 ml @ 1 mls/hr Q24H IV 03/15/25 11:45 03/18/25 03:43 7 MLS/HR Norepinephrine Bitartrate 250 ml @ 3.75 mls/hr Q24H IV 03/15/25 12:00 Vancomycin HCl 200 ml @ 200 mls/hr Q12HR IV 03/15/25 22:00 UNV Ondansetron HCl 4 mg Q4HP PRN IV 03/15/25 17:15 Acetaminophen 650 mg Q6HP PRN PO 03/15/25 17:15 03/16/25 16:32 650 MG Nitroglycerin 0.4 mg Q5MINP PRN SL 03/15/25 17:15 Morphine Sulfate 2 mg Q30M PRN IV 03/15/25 17:15 Diagnostic Test (Pha) 1 strip Q6HR 03/15/25 18:00 03/19/25 17:34 1 STRIP Insulin Human Regular Q6HR SC 03/15/25 18:00 03/19/25 17:51 4 UNITS Dextrose 50 ml UD PRN IV 03/15/25 17:15 Atorvastatin Calcium 20 mg HS NG 03/15/25 22:00 03/18/25 21:48 20 MG Folic Acid 1 mg DAILY PO 03/16/25 10:00 03/18/25 09:42 1 MG Propofol 100 ml @ 2.331 mls/ hr Q24H IV 03/16/25 11:00 Fentanyl Citrate 250 ml @ 2.5 mls/hr Q24H IV 03/16/25 11:00 03/17/25 15:39 10 MLS/HR Enoxaparin Sodium 40 mg DAILY SC 03/18/25 10:00 03/19/25 09:30 40 MG Albuterol 2.5 mg Q3HPRN PRN NEB 03/18/25 08:45 03/18/25 23:43 2.5 MG Albuterol 2.5 mg Q6HWA [facility] 03/18/25 12:00 03/19/25 17:50 2.5 MG Ipratropium [place] 0.5 mg Q3HPRN PRN NEB 03/18/25 08:45 03/18/25 23:43 0.5 MG Ipratropium [place] 0.5 mg Q6HWA [facility] 03/18/25 12:00 03/19/25 17:50 0.5 MG Sodium Chloride 1,000 ml @ 100 mls/hr Q10H IV 03/18/25 10:30 03/19/25 00:52 100 MLS/HR Ceftriaxone Sodium 50 ml @ 100 mls/hr DAILY@09 IV 03/19/25 09:00 03/19/25 09:30 100 MLS/HR objective Gen.: Patient lying in bed in no apparent distress. On supplemental oxygen. Head: Normocephalic, atraumatic. Eyes: EOMI/PERRLA. Ears: Normal hearing. Normal anatomy. Neck/trachea: Trachea midline, supple. Nose: Normal external anatomy. Mouth: Moist mucous membranes. Chest: Decreased air entry bilaterally. No wheezing or rhonchi. Cardiovascular: Positive S1, positive S2. Regular rate and rhythm. Abdomen: Positive bowel sounds in all 4 quadrants. Soft, non-tender, non- distended. : Deferred. Rectal: Deferred. Skin: Warm, dry. Intact. Extremities: 2+ radial pulses bilaterally. No lower extremity edema. Neuro: Awake, alert, oriented x3. No gross motor or sensory deficits. Cranial nerves II through XII intact. Gait not assessed. laboratory and microbiology Laboratory Tests 03/19/25 04:41 Test 03/19/25 04:41 Range/Units Serum Glucose 169 H 74-106 mg/dL Assessment/Plan Impression: Acute hypoxemic respiratory failure Mechanical ventilation, s/p extubation Acute metabolic encephalopathy Cirrhosis Acute kidney injury Cerebrovascular accident Events: Patient seen at bedside. Patient underwent unplanned extubation today at 8 AM. Noted to have stridor Racemic epinephrine was given x2 Placed on aerosol Coolmist, breathing comfortably No distress. Decadron given Monitor respiratory status closely Head of bed elevation Aspiration precautions Continue antibiotics Lovenox for DVT prophylaxis Labs and imaging studies reviewed Plan: S/p extubation On supplemental oxygen Titrate to keep O2 sats above 90%. Continue supportive care/bronchodilators Antibiotics Pressors as necessary for hemodynamic support Titrate to keep mean arterial pressure greater than 65 mmHg Monitor renal function Monitor electrolytes. Supplement as necessary. Monitor ins and outs. GI and DVT prophylaxis Prognosis: Poor given patient's multiple co-morbidities. Condition: Critical Rest of plan per hospitalist and other consultants. A total of 35 minutes of critical care time was spent reviewing the patient record, examining the patient, making a diagnostic and therapeutic plan, discussing this plan with the medical personnel, following up on diagnostic studies and following the patient for clinical stability excluding any and all procedures. At least 50% of this time was spent in direct, [id number] contact. Thank you, CHANTEL Bruce, for allowing me to participate in this patient's care. Further recommendations will depend on the patient's clinical course. Please do not hesitate to contact me if you have any questions or concerns. This medical document was created using an electronic medical record system with [employer] dictation system. Although these documentations are being carefully reviewed, there may still be some phonetic and typographical changes. The errors are purely typographical, due to imperfection on the software program, and do not reflect any compromise in the patient's medical care. Dietary Evaluation Review Comments: 1) TF Glucerna 1.2 Steven @ 70ml/hr x 24 hr (goal). Start @ 20ml/hr, increase 10ml/hr Q4H until goal rate is reached. TF at goal volume provides 100% energy & protein needs - 2016 kcal, 93 gm protein, 1352 ml free water 2) Water flush 170ml Q6H if allowed 3) TPN if NPO>7 days 4) Vit C 200mg daily, zinc sulfate 220mg BID x 10 days, J Carlos 1 pk BID, MVI w/ minerals 1 tab daily 5) Monitor I/O, weight trend, lab values and skin integrity Expected Outcomes/Goals: To meet >75% estimated needs Fu 2-3 days Plan discussed with: Other (CHRIS Banks) Critical Care Time(min): 35 CHELY CHARLES MD Mar 19, 2025 20:27
[2025-03-20] VITALS (31 sets, daily range): BP systolic 134–173; BP diastolic 55–75; PULSE 88–120; RESP 13–33; TEMP 98.2–99.3; O2SAT 93–99
[2025-03-20 04:24] LABS: Eosinophils # (auto) 0 10 ^3/uL (0-0.8); Eosinophils % (auto) 0.1 % (0.0-7.0); Lymphocytes # (auto) 0.5 10 ^3/uL (0.4-5.4); Monocytes # (auto) 0.6 10 ^3/uL (0-1.3)
[2025-03-20 04:26] LABS: Basophils # (auto) 0.1 10 ^3/uL (0-0.2); Basophils % (auto) 0.7 % (0.0-2.0); Hematocrit 35.4 % (41.0-53.0); Hemoglobin 12.1 g/dL (13.5-17.5); Lymphocytes % (auto) 4.7 % (10.0-50.0); Mean Corpuscular Hemoglobin 29.1 pg (28.0-32.0); Mean Corpuscular Hgb Conc. 34.3 g/dL (32.0-36.0); Mean Corpuscular Volume 84.9 fL (80.0-100.0); Monocytes % (auto) 5.7 % (0.0-12.0); Neutrophils # (auto) 9.2 10 ^3/uL (1.6-8.6); Neutrophils % (auto) 88.8 % (37.0-80.0); Nucleated Red Blood Cells % 0.2 %; Platelet Count (auto) 543 10^3/uL (140-450); Red Blood Cells 4.17 10^6/uL (4.5-5.90); Red Cell Distribution Width 13.9 % (11.8-14.3); White Blood Cell 10.3 10^3/uL (4.4-10.8)
[2025-03-20 04:31] LABS: Potassium 3.9 mmol/L (3.5-5.1); Sodium 144 mmol/L (136-145)
[2025-03-20 04:32] LABS: Anion Gap 17 (5-15); Calcium 9.4 mg/dL (8.7-10.4)
[2025-03-20 04:37] LABS: BUN/Creatinine Ratio 15.3 (10.0-20.0); Blood Urea Nitrogen 20 mg/dL (9-23)
[2025-03-20 04:44] LABS: Carbon Dioxide 18 mmol/L (20-31); Chloride 109 mmol/L (98-107); Glucose 112 mg/dL (74-106)
--- NOTE | 2025-03-20 09:17 | DVHPN2 ---
Progress Note Date Seen: Mar 20, 2025 Has the PT tested + for MRSA If YES, has PT been informed?: No Medical Necessity Reason Pt with a Central, PICC or Fol: Yes The following are medically ne: Jean Catheter Reason for jean catheter: Strict I&O Subjective Review of Systems: RESPIRATORY:Abnormal Other Systems: Patient seen and examined by myself today in follow-up Objective vital signs Vital Sign Date Time Temp Pulse Resp B/P (MAP) Pulse Ox O2 Delivery O2 Flow Rate FiO2 03/20/25 08:00 98.2 108 33 146/67 (93) 95 98.2 03/20/25 07:48 Room Air* 0 21 Total Intake and Output 03/19/25 03/19/25 03/20/25 15:00 23:00 07:00 Intake Total 500 ml 700 ml Output Total 1800 ml 2550 ml Balance -1300 ml -1850 ml medications Current Medications Medications Dose Ordered Sig/Niesha Route Start Time Stop Time Status Last Admin Dose Admin Midazolam HCl 50 ml @ 1 mls/hr Q24H IV 03/15/25 11:45 03/18/25 03:43 7 MLS/HR Norepinephrine Bitartrate 250 ml @ 3.75 mls/hr Q24H IV 03/15/25 12:00 Vancomycin HCl 200 ml @ 200 mls/hr Q12HR IV 03/15/25 22:00 UNV Ondansetron HCl 4 mg Q4HP PRN IV 03/15/25 17:15 Acetaminophen 650 mg Q6HP PRN PO 03/15/25 17:15 03/16/25 16:32 650 MG Nitroglycerin 0.4 mg Q5MINP PRN SL 03/15/25 17:15 Morphine Sulfate 2 mg Q30M PRN IV 03/15/25 17:15 Diagnostic Test (Pha) 1 strip Q6HR 03/15/25 18:00 03/20/25 05:37 1 STRIP Insulin Human Regular Q6HR SC 03/15/25 18:00 03/19/25 23:50 2 UNITS Dextrose 50 ml UD PRN IV 03/15/25 17:15 Atorvastatin Calcium 20 mg HS NG 03/15/25 22:00 03/18/25 21:48 20 MG Folic Acid 1 mg DAILY PO 03/16/25 10:00 03/18/25 09:42 1 MG Propofol 100 ml @ 2.331 mls/ hr Q24H IV 03/16/25 11:00 Fentanyl Citrate 250 ml @ 2.5 mls/hr Q24H IV 03/16/25 11:00 03/17/25 15:39 10 MLS/HR Enoxaparin Sodium 40 mg DAILY SC 03/18/25 10:00 03/20/25 08:49 40 MG Albuterol 2.5 mg Q3HPRN PRN NEB 03/18/25 08:45 03/18/25 23:43 2.5 MG Albuterol 2.5 mg Q6HWA NEB 03/18/25 12:00 03/20/25 06:47 2.5 MG Ipratropium [place] 0.5 mg Q3HPRN PRN NEB 03/18/25 08:45 03/18/25 23:43 0.5 MG Ipratropium [place] 0.5 mg Q6HWA [facility] 03/18/25 12:00 03/20/25 06:47 0.5 MG Sodium Chloride 1,000 ml @ 100 mls/hr Q10H IV 03/18/25 10:30 03/19/25 23:46 100 MLS/HR Ceftriaxone Sodium 50 ml @ 100 mls/hr DAILY@09 IV 03/19/25 09:00 03/20/25 08:51 100 MLS/HR Examination: LUNGS:Normal, CVS:Normal, MSK:Normal laboratory and microbiology Laboratory Tests 03/20/25 03:37 Test 03/20/25 03:37 Range/Units Serum Glucose 112 H 74-106 mg/dL Microbiology Date/Time Source Procedure Growth Status 03/16/25 02:59 Nose MRSA Screen - Final Complete 03/15/25 14:29 Urine - [place] Urine Culture - Final Complete 03/15/25 14:27 Blood Blood Culture - Preliminary NO GROWTH AFTER 72 HOURS OF INCUBATION. 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 Start @ 20ml/hr, increase 10ml/hr Q4H until goal rate is reached. TF at goal volume provides 100% energy & protein needs - 2016 kcal, 93 gm protein, 1352 ml free water 2) Water flush 170ml Q6H if allowed 3) TPN if NPO>7 days 4) Vit C 200mg daily, zinc sulfate 220mg BID x 10 days, J Carlos 1 pk BID, MVI w/ minerals 1 tab daily 5) Monitor I/O, weight trend, lab values and skin integrity Expected Outcomes/Goals: To meet >75% estimated needs Fu 2-3 days RA CARCAMO MD Mar 20, 2025 09:17
[2025-03-20] MEDS: ONDANSETRON HCL 4 MG/2 ML VIAL IV PRN (12:58)
--- NOTE | 2025-03-20 13:41 | DVHPN2 ---
Subjective Patient awake and following some commands. Reviewed: Care Plan, H&P, Labs, Medications Changes from previous H/P or p: Changes General: Per HPI Objective Vitals Vital Signs Date Time Temp Pulse Resp B/P (MAP) Pulse Ox O2 Delivery O2 Flow Rate FiO2 03/20/25 12:32 119 16 99 03/20/25 12:00 Room Air* 0 21 03/20/25 12:00 99.1 135/55 (81) 99.1 Intake/Output Intake and Output 03/20/25 07:00 Intake Total 1300 ml Output Total 4350 ml Balance -3050 ml Intake Oral 0 ml IV Total 1300 ml Output Urine Total 4350 ml General Appearance: Alert, mild distress, Other (Patient intubated) HEENT: Atraumatic, PERRLA Lungs: Clear to auscultation, Normal air movement, Other (Mechanical ventilation) Cardiovascular: Normal S1, Normal S2 Abdomen: Soft, No tenderness Neuro: Other (Unable to assess) Skin: Dry, Intact Psych/Mental Status: Other (Patient chemically sedated) Medications Current Medications Medications Dose Ordered Sig/Niesha Route Start Time Stop Time Status Last Admin Dose Admin Norepinephrine Bitartrate 250 ml @ 3.75 mls/hr Q24H IV 03/15/25 12:00 Vancomycin HCl 200 ml @ 200 mls/hr Q12HR IV 03/15/25 22:00 UNV Ondansetron HCl 4 mg Q4HP PRN IV 03/15/25 17:15 03/20/25 12:58 4 MG Acetaminophen 650 mg Q6HP PRN PO 03/15/25 17:15 03/16/25 16:32 650 MG Nitroglycerin 0.4 mg Q5MINP PRN SL 03/15/25 17:15 Morphine Sulfate 2 mg Q30M PRN IV 03/15/25 17:15 Diagnostic Test (Pha) 1 strip Q6HR 03/15/25 18:00 03/20/25 13:00 1 STRIP Insulin Human Regular Q6HR SC 03/15/25 18:00 03/19/25 23:50 2 UNITS Dextrose 50 ml UD PRN IV 03/15/25 17:15 Atorvastatin Calcium 20 mg HS NG 03/15/25 22:00 03/18/25 21:48 20 MG Folic Acid 1 mg DAILY PO 03/16/25 10:00 03/18/25 09:42 1 MG Propofol 100 ml @ 2.331 mls/ hr Q24H IV 03/16/25 11:00 Fentanyl Citrate 250 ml @ 2.5 mls/hr Q24H IV 03/16/25 11:00 03/17/25 15:39 10 MLS/HR Enoxaparin Sodium 40 mg DAILY SC 03/18/25 10:00 03/20/25 08:49 40 MG Albuterol 2.5 mg Q3HPRN PRN NEB 03/18/25 08:45 03/18/25 23:43 2.5 MG Albuterol 2.5 mg Q6HWA NEB 03/18/25 12:00 03/20/25 12:25 2.5 MG Ipratropium [place] 0.5 mg Q3HPRN PRN NEB 03/18/25 08:45 03/18/25 23:43 0.5 MG Ipratropium [place] 0.5 mg Q6HWA [facility] 03/18/25 12:00 03/20/25 12:26 0.5 MG Sodium Chloride 1,000 ml @ 100 mls/hr Q10H IV 03/18/25 10:30 03/20/25 09:55 100 MLS/HR Ceftriaxone Sodium 50 ml @ 100 mls/hr DAILY@09 IV 03/19/25 09:00 03/20/25 08:51 100 MLS/HR Laboratory Results Laboratory Tests 03/20/25 03:37 Chemistry Test 03/20/25 03:37 Calcium Level 9.4 mg/dL (8.7-10.4) Urinalysis Test 03/15/25 14:29 03/17/25 11:40 Urine Mucus Few (None Seen) Urine Color Colorless (Yellow) Urine Clarity Clear (Clear) Urine pH 5.5 (5.0-9.0) Urine Specific [place] 1.007 (1.001-1.035) Urine Protein 1+ (Negative) H Urine Ketones Negative (Negative) Urine Blood 1+ /uL (Negative) H Urine Nitrite Negative (Negative) Urine Bilirubin Negative (Negative) Urine Urobilinogen Normal mg/dL (Negative) Urine Leukocyte Esterase Negative /uL (Negative) Urine RBC 8 /hpf (0 - 3) Urine Microscopic WBC 4 /HPF (0-3) H Urine Squamous Epithelial Cells Few /hpf (<5) Urine Bacteria Few /hpf (None Seen) H Urine Hyaline Casts Few /lpf (0 - 2) Urine Yeast (Budding) Few /hpf (None Seen) Urine Creatinine 13.71 mg/dL (30.0-125.0) L Urine Protein/Creatinine Ratio 4.00 Urine Sodium 144 mmol/L (40-220) Urine Glucose 3+ mg/dL (Normal) H Urine Total Protein 54.9 mg/dL (1-14) H Microbiology Microbiology Date/Time Source Procedure Growth Status 03/16/25 02:59 Nose MRSA Screen - Final Complete 03/15/25 14:29 Urine - [place] Urine Culture - Final Complete 03/15/25 14:27 Blood Blood Culture - Preliminary NO GROWTH AFTER 72 HOURS OF INCUBATION. Resulted 03/15/25 13:25 Sputum Gram Stain - Final Complete 03/15/25 13:25 Respiratory Culture - Final Staphylococcus aureus Complete Labs and/or images reviewed: Labs reviewed by me, Image(s) reviewed by me Assessment/Plan Assessment/Plan Impression: -metabolic encephalopathy probably secondary to prescribed medications -? Over medication to prescribed meds -schizophrenia -acute respiratory failure with mechanical ventilation -cirrhosis -acute kidney injury, vasomotor nephropathy -history of CVA Plan: Events: Patient tachycardic. Now alert and oriented to self, able to follow some commands. Awaiting swallow evaluation. Attempted to call patient's emergency contact for home medications. We will restart beta blockers as ordered from previous discharge from hospitalization, Prozac, hydroxyzine. Plans for downgrade to telemetry floor once patient has been assess for aspiration risk. -bronchodilators -IV hydration -nephrology consultation: Recommendations reviewed -hold previously prescribed antipsychotics -PUD, DVT prophylaxis -continue antibiotics at this time Repeat labs and chest x-ray in a.m. Critical care time spent with patient discussing and formulating plan of care: 90 minutes. This does not include time spent performing procedures. This medical document was created using an electronic medical record system with [employer] system. Although this document has been carefully reviewed, there may still be some phonetic and typographical errors. These areas are purely typographical due to imperfections of the software programs, and do not reflect any compromise in the patient's medical care. Plan discussed with: Patient, Other (RN) My Orders Orders - ALEXANDR ANDERSON CUT OUT STITCHER Procedure Category Date Status Time Soc Telemed Psych CONS 6/5/25 Transmitted Consult 11:47 Date of Service: Mar 20, 2025 Billing Provider: ALEXANDR ANDERSON NP Common Visit Codes: [id number] INP/OBS CARE(HIGH) ALEXANDR ANDERSON NP Mar 20, 2025 13:41
[2025-03-20] MEDS ORDERED: hydrOXYzine 25 MG TAB or CAP PO PRN (13:45)
[2025-03-20] MEDS: FLUoxetine HCL 20 MG CAP PO ONE (13:45)
[2025-03-20] MEDS: METOPROLOL TARTRATE 25 MG TAB PO SCH (18:48)
--- NOTE | 2025-03-20 23:54 | DVHPN2 ---
Progress Note - Dictate Date Seen: Mar 20, 2025 Has the PT tested + for MRSA If YES, has PT been informed?: No Medical Necessity Reason Pt with a Central, PICC or Fol: Yes The following are medically ne: Jean Catheter Reason for jean catheter: Strict I&O Subjective Patient seen and examined at bedside. Currently breathing on room air Overnight events reviewed. The patient is a 59-year-old gentleman with history of bipolar disorder who presented with altered mental status, was intubated for airway protection. vital signs Vital Sign Date Time Temp Pulse Resp B/P (MAP) Pulse Ox O2 Delivery O2 Flow Rate FiO2 03/20/25 22:00 95 03/20/25 22:00 18 97 Room Air* 0 21 03/20/25 20:00 98.5 169/62 (97) 98.5 Total Intake and Output 03/19/25 03/19/25 03/20/25 15:00 23:00 07:00 Intake Total 500 ml 800 ml Output Total 1800 ml 2550 ml Balance -1300 ml -1750 ml medications Current Medications Medications Dose Ordered Sig/Niesha Route Start Time Stop Time Status Last Admin Dose Admin Norepinephrine Bitartrate 250 ml @ 3.75 mls/hr Q24H IV 03/15/25 12:00 Vancomycin HCl 200 ml @ 200 mls/hr Q12HR IV 03/15/25 22:00 UNV Ondansetron HCl 4 mg Q4HP PRN IV 03/15/25 17:15 03/20/25 12:58 4 MG Acetaminophen 650 mg Q6HP PRN PO 03/15/25 17:15 03/16/25 16:32 650 MG Nitroglycerin 0.4 mg Q5MINP PRN SL 03/15/25 17:15 Morphine Sulfate 2 mg Q30M PRN IV 03/15/25 17:15 Diagnostic Test (Pha) 1 strip Q6HR 03/15/25 18:00 03/20/25 18:03 1 STRIP Insulin Human Regular Q6HR SC 03/15/25 18:00 03/20/25 18:03 3 UNITS Dextrose 50 ml UD PRN IV 03/15/25 17:15 Atorvastatin Calcium 20 mg HS NG 03/15/25 22:00 03/20/25 21:37 20 MG Folic Acid 1 mg DAILY PO 03/16/25 10:00 03/18/25 09:42 1 MG Fentanyl Citrate 250 ml @ 2.5 mls/hr Q24H IV 03/16/25 11:00 03/17/25 15:39 10 MLS/HR Enoxaparin Sodium 40 mg DAILY SC 03/18/25 10:00 03/20/25 08:49 40 MG Albuterol 2.5 mg Q3HPRN PRN NEB 03/18/25 08:45 03/18/25 23:43 2.5 MG Albuterol 2.5 mg Q6HWA NEB 03/18/25 12:00 03/20/25 18:21 2.5 MG Ipratropium [place] 0.5 mg Q3HPRN PRN NEB 03/18/25 08:45 03/18/25 23:43 0.5 MG Ipratropium [place] 0.5 mg Q6HWA [facility] 03/18/25 12:00 03/20/25 18:21 0.5 MG Sodium Chloride 1,000 ml @ 100 mls/hr Q10H IV 03/18/25 10:30 03/20/25 21:07 100 MLS/HR Ceftriaxone Sodium 50 ml @ 100 mls/hr DAILY@09 IV 03/19/25 09:00 03/20/25 08:51 100 MLS/HR Hydroxyzine Pamoate 50 mg Q6HP PRN PO 03/20/25 13:45 Metoprolol Tartrate 25 mg BID PO 03/20/25 22:00 03/20/25 18:48 25 MG Fluoxetine HCl 40 mg DAILY PO 03/21/25 10:00 objective Gen.: Patient lying in bed in no apparent distress. On room air. Head: Normocephalic, atraumatic. Eyes: EOMI/PERRLA. Ears: Normal hearing. Normal anatomy. Neck/trachea: Trachea midline, supple. Nose: Normal external anatomy. Mouth: Moist mucous membranes. Chest: Decreased air entry bilaterally. No wheezing or rhonchi. Cardiovascular: Positive S1, positive S2. Regular rate and rhythm. Abdomen: Positive bowel sounds in all 4 quadrants. Soft, non-tender, non- distended. : Deferred. Rectal: Deferred. Skin: Warm, dry. Intact. Extremities: 2+ radial pulses bilaterally. No lower extremity edema. Neuro: Awake, alert, oriented x3. No gross motor or sensory deficits. Cranial nerves II through XII intact. Gait not assessed. laboratory and microbiology Laboratory Tests 03/20/25 03:37 Test 03/20/25 03:37 Range/Units Serum Glucose 112 H 74-106 mg/dL Assessment/Plan Impression: Acute hypoxemic respiratory failure Mechanical ventilation, s/p extubation Acute metabolic encephalopathy Cirrhosis Acute kidney injury Cerebrovascular accident Events: Patient seen at bedside. S/p unplanned extubation yesterday. Currently tapered off supplemental oxygen, breathing comfortably on room air No distress. Head of bed elevation Aspiration precautions Continue antibiotics Incentive spirometry Continue bronchodilators Lovenox for DVT prophylaxis Labs and imaging studies reviewed Plan: S/p extubation Supplemental oxygen PRN Titrate to keep O2 sats above 90%. Continue supportive care/bronchodilators Antibiotics Pressors as necessary for hemodynamic support Titrate to keep mean arterial pressure greater than 65 mmHg Monitor renal function Monitor electrolytes. Supplement as necessary. Monitor ins and outs. GI and DVT prophylaxis Prognosis: Guarded given patient's multiple co-morbidities. Condition: Critical Rest of plan per hospitalist and other consultants. A total of 35 minutes of critical care time was spent reviewing the patient record, examining the patient, making a diagnostic and therapeutic plan, discussing this plan with the medical personnel, following up on diagnostic studies and following the patient for clinical stability excluding any and all procedures. At least 50% of this time was spent in direct, [id number] contact. Thank you, CHANTEL Bruce, for allowing me to participate in this patient's care. Further recommendations will depend on the patient's clinical course. Please do not hesitate to contact me if you have any questions or concerns. This medical document was created using an electronic medical record system with [employer] dictation system. Although these documentations are being carefully reviewed, there may still be some phonetic and typographical changes. The errors are purely typographical, due to imperfection on the software program, and do not reflect any compromise in the patient's medical care. Dietary Evaluation Review Comments: 1) TF Glucerna 1.2 Steven @ 70ml/hr x 24 hr (goal). Start @ 20ml/hr, increase 10ml/hr Q4H until goal rate is reached. TF at goal volume provides 100% energy & protein needs - 2016 kcal, 93 gm protein, 1352 ml free water 2) Water flush 170ml Q6H if allowed 3) TPN if NPO>7 days 4) Vit C 200mg daily, zinc sulfate 220mg BID x 10 days, J Carlos 1 pk BID, MVI w/ minerals 1 tab daily 5) Monitor I/O, weight trend, lab values and skin integrity Expected Outcomes/Goals: To meet >75% estimated needs Fu 2-3 days Plan discussed with: Other (CHRIS Wallis) Critical Care Time(min): 35 CHELY CHARLES MD Mar 20, 2025 23:54
[2025-03-21] VITALS (27 sets, daily range): BP systolic 137–173; BP diastolic 50–85; PULSE 87–115; RESP 12–33; TEMP 98.2–99.1; O2SAT 87–99
[2025-03-21 05:09] LABS: Eosinophils % (auto) 0.5 % (0.0-7.0); Lymphocytes # (auto) 0.9 10 ^3/uL (0.4-5.4); Monocytes # (auto) 0.7 10 ^3/uL (0-1.3); Neutrophils # (auto) 8.6 10 ^3/uL (1.6-8.6); Nucleated Red Blood Cells % 0.1 %; Red Cell Distribution Width 14.1 % (11.8-14.3)
[2025-03-21 05:11] LABS: Basophils # (auto) 0.1 10 ^3/uL (0-0.2); Basophils % (auto) 0.6 % (0.0-2.0); Eosinophils # (auto) 0.1 10 ^3/uL (0-0.8); Hematocrit 38.6 % (41.0-53.0); Lymphocytes % (auto) 8.6 % (10.0-50.0); Mean Corpuscular Hgb Conc. 33.7 g/dL (32.0-36.0); Mean Corpuscular Volume 86.1 fL (80.0-100.0); Monocytes % (auto) 6.9 % (0.0-12.0); Neutrophils % (auto) 83.4 % (37.0-80.0); Platelet Count (auto) 617 10^3/uL (140-450); Red Blood Cells 4.48 10^6/uL (4.5-5.90); White Blood Cell 10.4 10^3/uL (4.4-10.8)
[2025-03-21 05:17] LABS: Calcium 9.7 mg/dL (8.7-10.4); Potassium 3.9 mmol/L (3.5-5.1); Sodium 142 mmol/L (136-145)
[2025-03-21 05:18] LABS: Anion Gap 14 (5-15)
[2025-03-21 05:24] LABS: BUN/Creatinine Ratio 17.1 (10.0-20.0); Blood Urea Nitrogen 22 mg/dL (9-23)
[2025-03-21 05:31] LABS: Carbon Dioxide 17 mmol/L (20-31); Chloride 111 mmol/L (98-107); Glucose 141 mg/dL (74-106)
[2025-03-21] MEDS: FLUoxetine HCL 20 MG CAP PO SCH (08:47)
[2025-03-21] MEDS: LOSARTAN POTASSIUM 50 MG TAB PO SCH (08:52)
--- NOTE | 2025-03-21 09:43 | DVHPN2 ---
Subjective Patient awake and following some commands. Reviewed: Care Plan, H&P, Labs, Medications Changes from previous H/P or p: No Changes General: Per HPI Objective Vitals Vital Signs Date Time Temp Pulse Resp B/P (MAP) Pulse Ox O2 Delivery O2 Flow Rate FiO2 03/21/25 09:22 96 16 156/78 96 0.0 03/21/25 08:01 Room Air* 21 03/21/25 08:00 98.8 98.8 Intake/Output Intake and Output 03/21/25 07:00 Intake Total 2750 ml Output Total 2950 ml Balance -200 ml Intake Oral 300 ml IV Total 2450 ml Output Urine Total 2950 ml # Bowel Movements 2 General Appearance: Alert, Oriented X3 (x 2), mild distress HEENT: Atraumatic, PERRLA Lungs: Clear to auscultation, Normal air movement, Other (Mechanical ventilation) Cardiovascular: Normal S1, Normal S2 Abdomen: Soft, No tenderness Extremities: No clubbing, No cyanosis Neuro: Other (Unable to assess) Skin: Dry, Intact Psych/Mental Status: Other (Patient chemically sedated) Medications Current Medications Medications Dose Ordered Sig/Niesha Route Start Time Stop Time Status Last Admin Dose Admin Vancomycin HCl 200 ml @ 200 mls/hr Q12HR IV 03/15/25 22:00 UNV Ondansetron HCl 4 mg Q4HP PRN IV 03/15/25 17:15 03/20/25 12:58 4 MG Acetaminophen 650 mg Q6HP PRN PO 03/15/25 17:15 03/16/25 16:32 650 MG Nitroglycerin 0.4 mg Q5MINP PRN SL 03/15/25 17:15 Morphine Sulfate 2 mg Q30M PRN IV 03/15/25 17:15 Diagnostic Test (Pha) 1 strip Q6HR 03/15/25 18:00 03/21/25 05:51 1 STRIP Insulin Human Regular Q6HR SC 03/15/25 18:00 03/21/25 05:51 2 UNITS Dextrose 50 ml UD PRN IV 03/15/25 17:15 Atorvastatin Calcium 20 mg HS NG 03/15/25 22:00 03/20/25 21:37 20 MG Folic Acid 1 mg DAILY PO 03/16/25 10:00 03/21/25 08:48 1 MG Enoxaparin Sodium 40 mg DAILY SC 03/18/25 10:00 03/21/25 08:51 40 MG Albuterol 2.5 mg Q3HPRN PRN NEB 03/18/25 08:45 03/18/25 23:43 2.5 MG Albuterol 2.5 mg Q6HWA [facility] 03/18/25 12:00 03/21/25 05:42 2.5 MG Ipratropium [place] 0.5 mg Q3HPRN PRN NEB 03/18/25 08:45 03/18/25 23:43 0.5 MG Ipratropium [place] 0.5 mg Q6HWA [facility] 03/18/25 12:00 03/21/25 05:41 0.5 MG Sodium Chloride 1,000 ml @ 100 mls/hr Q10H IV 03/18/25 10:30 03/21/25 05:51 100 MLS/HR Ceftriaxone Sodium 50 ml @ 100 mls/hr DAILY@09 IV 03/19/25 09:00 03/21/25 08:48 100 MLS/HR Hydroxyzine Pamoate 50 mg Q6HP PRN PO 03/20/25 13:45 Metoprolol Tartrate 25 mg BID PO 03/20/25 22:00 03/21/25 08:48 25 MG Fluoxetine HCl 40 mg DAILY PO 03/21/25 10:00 03/21/25 08:47 40 MG Losartan Potassium 50 mg DAILY PO 03/21/25 10:00 03/21/25 08:52 50 MG Hydralazine HCl 10 mg Q6HP PRN IV 03/21/25 08:30 Laboratory Results Laboratory Tests 03/21/25 04:50 Chemistry Test 03/21/25 04:50 Calcium Level 9.7 mg/dL (8.7-10.4) Urinalysis Test 03/15/25 14:29 03/17/25 11:40 Urine Mucus Few (None Seen) Urine Color Colorless (Yellow) Urine Clarity Clear (Clear) Urine pH 5.5 (5.0-9.0) Urine Specific [place] 1.007 (1.001-1.035) Urine Protein 1+ (Negative) H Urine Ketones Negative (Negative) Urine Blood 1+ /uL (Negative) H Urine Nitrite Negative (Negative) Urine Bilirubin Negative (Negative) Urine Urobilinogen Normal mg/dL (Negative) Urine Leukocyte Esterase Negative /uL (Negative) Urine RBC 8 /hpf (0 - 3) Urine Microscopic WBC 4 /HPF (0-3) H Urine Squamous Epithelial Cells Few /hpf (<5) Urine Bacteria Few /hpf (None Seen) H Urine Hyaline Casts Few /lpf (0 - 2) Urine Yeast (Budding) Few /hpf (None Seen) Urine Creatinine 13.71 mg/dL (30.0-125.0) L Urine Protein/Creatinine Ratio 4.00 Urine Sodium 144 mmol/L (40-220) Urine Glucose 3+ mg/dL (Normal) H Urine Total Protein 54.9 mg/dL (1-14) H Microbiology Microbiology Date/Time Source Procedure Growth Status 03/16/25 02:59 Nose MRSA Screen - Final Complete 03/15/25 14:29 Urine - [place] Urine Culture - Final Complete 03/15/25 14:27 Blood Blood Culture - Final NO GROWTH AFTER 5 DAYS OF INCUBATION. Complete 03/15/25 13:25 Sputum Gram Stain - Final Complete 03/15/25 13:25 Respiratory Culture - Final Staphylococcus aureus Complete Labs and/or images reviewed: Labs reviewed by me, Image(s) reviewed by me Assessment/Plan Assessment/Plan Impression: -metabolic encephalopathy probably secondary to prescribed medications -? Over medication to prescribed meds -schizophrenia -acute respiratory failure with mechanical ventilation -cirrhosis -acute kidney injury, vasomotor nephropathy -history of CVA Plan: Events: Patient more alert today. Blood pressure improved. No events overnight. -pending psychiatry consultation -continue p.r.n. anxiolytic -continue metoprolol, and losartan -bronchodilators -IV hydration -nephrology consultation: Recommendations reviewed -PUD, DVT prophylaxis -downgrade to Medical/Surgical unit Total time spent with patient discussing and formulating plan of care: 35 minutes. This medical document was created using an electronic medical record system with [employer] dictation system. Although this document has been carefully reviewed, there may still be some phonetic and typographical errors. These areas are purely typographical due to imperfections of the software programs, and do not reflect any compromise in the patient's medical care. Plan discussed with: Patient, Other (RN) My Orders Orders - ALEXANDR ANDERSON NP Procedure Category Date Status Time Soc Telemed Psych CONS 03/20/25 Transmitted Consult 11:47 Hydroxyzine Oral PHA 03/20/25 In Process (Vistaril Oral) 13:45 Metoprolol Tartrate PHA 03/20/25 In Process Tablet (Lopressor Ta 22:00 Fluoxetine Capsule PHA 03/21/25 In Process (Prozac Capsule) 10:00 Pureed DIET 03/20/25 Transmitted Dinner Discontinue [place] 03/21/25 In Process Catheter 08:18 Transfer Orders XFER 03/21/25 Transmitted 08:18 Transfer Orders XFER 03/21/25 Transmitted 08:28 Losartan Tablet PHA 03/21/25 In Process (Cozaar Tablet) 10:00 Hydralazine Injection PHA 03/21/25 In Process (Apresoline Inject 08:30 Date of Service: Mar 21, 2025 Billing Provider: ALEXANDR ANDERSON NP Common Visit Codes: [id number] CARE 30-74 MIN ALEXANDR ANDERSON NP Mar 21, 2025 09:43
[2025-03-21] MEDS: hydrALAZINE HCL 20 MG/ML VL IV PRN (11:04)
--- NOTE | 2025-03-21 22:09 | DVHPN2 ---
Progress Note - Dictate Date Seen: Mar 21, 2025 Has the PT tested + for MRSA If YES, has PT been informed?: No Medical Necessity Reason Pt with a Central, PICC or Fol: Yes The following are medically ne: Jean Catheter Reason for jean catheter: Strict I&O Subjective Patient seen and examined at bedside. Breathing comfortably on room air Overnight events reviewed. The patient is a 59-year-old gentleman with history of bipolar disorder who presented with altered mental status, was intubated for airway protection. vital signs Vital Sign Date Time Temp Pulse Resp B/P (MAP) Pulse Ox O2 Delivery O2 Flow Rate FiO2 03/21/25 21:00 98.2 94 19 154/70 (98) 95 98.2 03/21/25 18:54 Room Air* 0 21 21 Total Intake and Output 03/20/25 03/20/25 03/21/25 15:00 23:00 07:00 Intake Total 850 ml 860 ml 1040 ml Output Total 1200 ml 1750 ml Balance 850 ml -340 ml -710 ml medications Current Medications Medications Dose Ordered Sig/Niesha Route Start Time Stop Time Status Last Admin Dose Admin Vancomycin HCl 200 ml @ 200 mls/hr Q12HR IV 03/15/25 22:00 UNV Ondansetron HCl 4 mg Q4HP PRN IV 03/15/25 17:15 03/20/25 12:58 4 MG Acetaminophen 650 mg Q6HP PRN PO 03/15/25 17:15 03/16/25 16:32 650 MG Nitroglycerin 0.4 mg Q5MINP PRN SL 03/15/25 17:15 Morphine Sulfate 2 mg Q30M PRN IV 03/15/25 17:15 Diagnostic Test (Pha) 1 strip Q6HR 03/15/25 18:00 03/21/25 17:25 1 STRIP Insulin Human Regular Q6HR SC 03/15/25 18:00 03/21/25 18:27 3 UNITS Dextrose 50 ml UD PRN IV 03/15/25 17:15 Atorvastatin Calcium 20 mg HS NG 03/15/25 22:00 03/20/25 21:37 20 MG Folic Acid 1 mg DAILY PO 03/16/25 10:00 03/21/25 08:48 1 MG Enoxaparin Sodium 40 mg DAILY SC 03/18/25 10:00 03/21/25 08:51 40 MG Albuterol 2.5 mg Q3HPRN PRN NEB 03/18/25 08:45 03/18/25 23:43 2.5 MG Albuterol 2.5 mg Q6HWA NEB 03/18/25 12:00 03/21/25 18:54 2.5 MG Ipratropium [place] 0.5 mg Q3HPRN PRN NEB 03/18/25 08:45 03/18/25 23:43 0.5 MG Ipratropium [place] 0.5 mg Q6HWA NEB 03/18/25 12:00 03/21/25 18:54 0.5 MG Sodium Chloride 1,000 ml @ 100 mls/hr Q10H IV 03/18/25 10:30 03/21/25 18:27 100 MLS/HR Ceftriaxone Sodium 50 ml @ 100 mls/hr DAILY@09 IV 03/19/25 09:00 03/21/25 08:48 100 MLS/HR Hydroxyzine Pamoate 50 mg Q6HP PRN PO 03/20/25 13:45 Metoprolol Tartrate 25 mg BID PO 03/20/25 22:00 03/21/25 08:48 25 MG Fluoxetine HCl 40 mg DAILY PO 03/21/25 10:00 03/21/25 08:47 40 MG Losartan Potassium 50 mg DAILY PO 03/21/25 10:00 03/21/25 08:52 50 MG Hydralazine HCl 10 mg Q6HP PRN IV 03/21/25 08:30 03/21/25 11:04 10 MG objective Gen.: Patient lying in bed in no apparent distress. On room air. Head: Normocephalic, atraumatic. Eyes: EOMI/PERRLA. Ears: Normal hearing. Normal anatomy. Neck/trachea: Trachea midline, supple. Nose: Normal external anatomy. Mouth: Moist mucous membranes. Chest: Decreased air entry bilaterally. No wheezing or rhonchi. Cardiovascular: Positive S1, positive S2. Regular rate and rhythm. Abdomen: Positive bowel sounds in all 4 quadrants. Soft, non-tender, non- distended. : Deferred. Rectal: Deferred. Skin: Warm, dry. Intact. Extremities: 2+ radial pulses bilaterally. No lower extremity edema. Neuro: Awake, alert, oriented x3. No gross motor or sensory deficits. Cranial nerves II through XII intact. Gait not assessed. laboratory and microbiology Laboratory Tests 03/21/25 04:50 Test 03/21/25 04:50 Range/Units Serum Glucose 141 H 74-106 mg/dL Assessment/Plan Impression: Acute hypoxemic respiratory failure Acute metabolic encephalopathy Cirrhosis Acute kidney injury Cerebrovascular accident Events: Patient seen at bedside. Remains on room air, breathing comfortably No distress. Head of bed elevation Aspiration precautions Puree diet Blood pressure control Accu-Cheks, ISS. Continue antibiotics Incentive spirometry Continue bronchodilators Lovenox for DVT prophylaxis Labs and imaging studies reviewed Plan: S/p extubation on 03/19/25 Supplemental oxygen PRN Titrate to keep O2 sats above 90%. Continue supportive care/bronchodilators Antibiotics Monitor renal function Monitor electrolytes. Supplement as necessary. Monitor ins and outs. GI and DVT prophylaxis Prognosis: Guarded given patient's multiple co-morbidities. Rest of plan per hospitalist and other consultants. Thank you, CHANTEL Bruce, for allowing me to participate in this patient's care. Further recommendations will depend on the patient's clinical course. Please do not hesitate to contact me if you have any questions or concerns. This medical document was created using an electronic medical record system with [employer] computerized dictation system. Although these documentations are being carefully reviewed, there may still be some phonetic and typographical changes. The errors are purely typographical, due to imperfection on the software program, and do not reflect any compromise in the patient's medical care. Dietary Evaluation Review Comments: 1) TF Glucerna 1.2 Steven @ 70ml/hr x 24 hr (goal). Start @ 20ml/hr, increase 10ml/hr Q4H until goal rate is reached. TF at goal volume provides 100% energy & protein needs - 2016 kcal, 93 gm protein, 1352 ml free water 2) Water flush 170ml Q6H if allowed 3) TPN if NPO>7 days 4) Vit C 200mg daily, zinc sulfate 220mg BID x 10 days, J Carlos 1 pk BID, MVI w/ minerals 1 tab daily 5) Monitor I/O, weight trend, lab values and skin integrity Expected Outcomes/Goals: To meet >75% estimated needs Fu 2-3 days Plan discussed with: Patient, Other (CHRIS Ramos) CHELY CHARLES MD Mar 21, 2025:09
[2025-03-22] VITALS (14 sets, daily range): BP systolic 141–162; BP diastolic 59–96; PULSE 84–97; RESP 18–20; TEMP 98–99.8; O2SAT 95–100
[2025-03-22 10:07] LABS: Vitamin D 25-Hydroxy 44 ng/mL (.); Vitamin D-2 25-Hydroxy <1.0 ng/mL (.); Vitamin D-3 25-Hydroxy 44 ng/mL (.)
--- NOTE | 2025-03-22 10:56 | DVHINCON2 ---
Date of Service if different f: Mar 22, 2025 Consultation ([facility]) Consulting Physician: JACE REILLY MD Progress: Somewhat better Labs Laboratory Tests Test 03/15/25 13:16 03/15/25 14:27 03/15/25 14:29 03/15/25 15:23 Blood Gas Critical Value Read Back Yes Blood Gas Notified Whom Dr. kuhn Blood Gas Notified Time [id number] Blood Gas Notified By Zack rossi rrt Differential Total Cells Counted 100.0 (100) Neutrophils % (Manual) 86 (37.0-80.0) Band Neutrophils % (Manual) 6 Lymphocytes % (Manual) 3 (10.0-50.0) Monocytes % (Manual) 5 (0-12) Eosinophils % (Manual) 0 (0-7) Basophils % (Manual) 0 (0.0-2.0) Metamyelocytes % (manual) 0 Myelocytes % (Manual) 0 Promyelocytes % (Manual) 0 Blast Cells % (Manual) 0 Reactive Lymphocytes 0 Platelet Estimate Adequate Anisocytosis (manual) Slight Erythrocyte Sedimentation Rate 18 mm/hr (0-20) Prothrombin Time 10.3 sec (9.3-11.8) Prothromb Time International Ratio 0.97 (0.9-1.15) Activated Partial Thromboplast Time 30.4 SEC (24.5-34.5) Hemoglobin A1c 5.6 % A1C (<5.7) Lactic Acid Level 1.7 mmol/L (0.4-2.0) Ammonia < 10 umol/L (11-32) C-Reactive Protein High Sensitivity 2.32 mg/dL (<1.0) Plasma/Serum Blood Alcohol < 3.0 mg/dL (<10) Hepatitis A IgM Antibody Negative Hepatitis B Surface Antigen Negative (Negative) Hepatitis B Core IgM Antibody Negative (Negative) Hepatitis C Antibody Negative (Negative) Urine Mucus Few (None Seen) Urine Opiates Screen Neg (NEGATIVE) Urine Fentanyl Screen Neg (NEGATIVE) Urine Barbiturates Screen Neg (NEGATIVE) Urine Phencyclidine Screen Neg (NEGATIVE) Urine Amphetamines Screen Neg (NEGATIVE) Urine Benzodiazepines Screen Pos (NEGATIVE) Urine Cocaine Screen Neg (NEGATIVE) Urine Cannabinoids Screen Neg (NEGATIVE) Troponin I High Sensitivity 4 ng/L (</=54) Test 03/16/25 04:56 03/17/25 08:48 03/17/25 10:54 03/17/25 11:40 Random Vancomycin Level 12.4 ug/mL (5-10) Phosphorus Level 3.8 mg/dL (2.4-5.1) Magnesium Level 1.7 mg/dL (1.6-2.6) Total Bilirubin 0.2 mg/dL (0.2-1.0) Aspartate Amino Transf (AST/SGOT) 47 U/L (13-40) Alanine Aminotransferase (ALT/SGPT) 24 U/L (7-40) Alkaline Phosphatase 103 U/L (46-116) Total Protein 6.5 g/dL (5.7-8.2) Albumin 3.7 g/dL (3.2-4.8) B-Type Natriuretic Peptide 23.51 pg/mL (0-100) Parathyroid Hormone (Intact) 78.1 pg/mL (18.4-80.1) Urine Color Colorless (Yellow) Urine Clarity Clear (Clear) Urine pH 5.5 (5.0-9.0) Urine Specific [place] 1.007 (1.001-1.035) Urine Protein 1+ (Negative) Urine Ketones Negative (Negative) Urine Blood 1+ /uL (Negative) Urine Nitrite Negative (Negative) Urine Bilirubin Negative (Negative) Urine Urobilinogen Normal mg/dL (Negative) Urine Leukocyte Esterase Negative /uL (Negative) Urine RBC 8 /hpf (0 - 3) Urine Microscopic WBC 4 /HPF (0-3) Urine Squamous Epithelial Cells Few /hpf (<5) Urine Bacteria Few /hpf (None Seen) Urine Hyaline Casts Few /lpf (0 - 2) Urine Yeast (Budding) Few /hpf (None Seen) Urine Creatinine 13.71 mg/dL (30.0-125.0) Urine Protein/Creatinine Ratio 4.00 Urine Sodium 144 mmol/L (40-220) Urine Glucose 3+ mg/dL (Normal) Urine Total Protein 54.9 mg/dL (1-14) Test 03/19/25 04:41 03/19/25 06:02 03/19/25 08:21 03/19/25 10:09 Folic Acid (LAB) > 48.00 ng/mL (>5.38) Thyroid Stimulating Hormone (TSH) 1.64 uIU/mL (0.55-4.78) Blood Gas Set Respiration Rate 16.0 Blood Gas Tidal Volume 450.0 Blood Gas PEEP or CPAP 5.0 Vitamin D 25-Hydroxy 44 ng/mL (.) 25-Hydroxy Vitamin D2 <1.0 ng/mL (.) 25-Hydroxy Vitamin D3 44 ng/mL (.) Blood Gas Specimen Type Arterial Blood Gas Sample Site Right radial Blood Gas Patient Temperature 37.0 Arterial Blood Date Drawn [id number] Arterial Blood pH 7.335 (7.350-7.450) Arterial Blood Partial Pressure CO2 32.1 mmHg (35.0-48.0) Arterial Blood Partial Pressure O2 81.4 mmHg (83.0-108.0) Arterial Blood HCO3 16.7 mmol/L (21.0-28.0) Arterial Blood Oxygen Saturation 94.8 % (94.0-98.0) Arterial Blood Base Excess -8.1 mmol/L (-2.0-3.0) Arterial Blood Oxyhemoglobin 94.3 % (94.0-98.0) Arterial Blood Carboxyhemoglobin 0.3 % (0.5-1.5) Arterial Blood Methemoglobin 0.2 % (0.0-1.5) Carmelo Test Yes Blood Gas Total Hemoglobin 11.90 g/dL (13.5-17.5) Blood Gas Liter Flow 10.00 Blood Gas Modality Cool aerosol FiO2 % 40.0 Test 03/21/25 04:50 03/22/25 05:46 White Blood Count 10.4 10^3/uL (4.4-10.8) Red Blood Count 4.48 10^6/uL (4.5-5.90) Hemoglobin 13.0 g/dL (13.5-17.5) Hematocrit 38.6 % (41.0-53.0) Mean Corpuscular Volume 86.1 fL (80.0-100.0) Mean Corpuscular Hemoglobin 29.0 pg (28.0-32.0) Mean Corpuscular Hemoglobin Concent 33.7 g/dL (32.0-36.0) Red Cell Distribution Width 14.1 % (11.8-14.3) Platelet Count 617 10^3/uL (140-450) Mean Platelet Volume 7.1 fL (6.9-10.8) Neutrophils (%) (Auto) 83.4 % (37.0-80.0) Lymphocytes (%) (Auto) 8.6 % (10.0-50.0) Monocytes (%) (Auto) 6.9 % (0.0-12.0) Eosinophils (%) (Auto) 0.5 % (0.0-7.0) Basophils (%) (Auto) 0.6 % (0.0-2.0) Neutrophils # (Auto) 8.6 10 ^3/uL (1.6-8.6) Lymphocytes # (Auto) 0.9 10 ^3/uL (0.4-5.4) Monocytes # (Auto) 0.7 10 ^3/uL (0-1.3) Eosinophils # (Auto) 0.1 10 ^3/uL (0-0.8) Basophils # (Auto) 0.1 10 ^3/uL (0-0.2) Nucleated Red Blood Cells 0.1 % Sodium Level 142 mmol/L (136-145) Potassium Level 3.9 mmol/L (3.5-5.1) Chloride Level 111 mmol/L (98-107) Carbon Dioxide Level 17 mmol/L (20-31) Anion Gap 14 (5-15) Blood Urea Nitrogen 22 mg/dL (9-23) Creatinine 1.29 mg/dL (0.700-1.30) Glomerular Filtration Rate Calc 63 mL/min (>90) BUN/Creatinine Ratio 17.1 (10.0-20.0) Serum Glucose 141 mg/dL (74-106) Calcium Level 9.7 mg/dL (8.7-10.4) Bedside Glucose 186 mg/dl (70-106) Microbiology Date/Time Source Procedure Growth Status 03/16/25 02:59 Nose MRSA Screen - Final Complete 03/15/25 14:29 Urine - [place] Urine Culture - Final Complete 03/15/25 14:27 Blood Blood Culture - Final NO GROWTH AFTER 5 DAYS OF INCUBATION. Complete 03/15/25 13:25 Sputum Gram Stain - Final Complete 03/15/25 13:25 Respiratory Culture - Final Staphylococcus aureus Complete Appetite: Fair Side effects of medications: No Appearance: Stated age Psychomotor activity: WNL, Lethargic Behavioral: Cooperative Eye contact: Limited Speech: Confused Affect: Appropriate Mood: Euthymic Thought processes: Disorganized Thought content: Paucity of thoughts Suicidal ideations: Absent Homicidal ideations: Absent Orientation: Person, Confused Memory intact: Poor Intellect: Average Abstractability: [place] Concentration: Poor Attention: Poor Judgement: Poor Insight: Poor Vitals Vital Signs Date Time Temp Pulse Resp B/P (MAP) Pulse Ox O2 Delivery O2 Flow Rate FiO2 03/22/25 09:37 93 161/61 03/22/25 09:00 99.8 18 98 99.8 03/22/25 06:27 Room Air 03/22/25 06:27 0 21 21 Current medications Current Medications Medications Dose Ordered Sig/Niesha Route Start Time Stop Time Status Last Admin Dose Admin Vancomycin HCl 200 ml @ 200 mls/hr Q12HR IV 03/15/25 22:00 UNV Ondansetron HCl 4 mg Q4HP PRN IV 03/15/25 17:15 03/21/25 22:30 4 MG Acetaminophen 650 mg Q6HP PRN PO 03/15/25 17:15 03/21/25 22:32 650 MG Nitroglycerin 0.4 mg Q5MINP PRN SL 03/15/25 17:15 Morphine Sulfate 2 mg Q30M PRN IV 03/15/25 17:15 Diagnostic Test (Pha) 1 strip Q6HR 03/15/25 18:00 03/22/25 06:13 1 STRIP Insulin Human Regular Q6HR SC 03/15/25 18:00 03/22/25 06:12 3 UNITS Dextrose 50 ml UD PRN IV 03/15/25 17:15 Atorvastatin Calcium 20 mg HS NG 03/15/25 22:00 03/21/25 22:33 20 MG Folic Acid 1 mg DAILY PO 03/16/25 10:00 03/22/25 09:37 1 MG Enoxaparin Sodium 40 mg DAILY SC 03/18/25 10:00 03/22/25 09:38 40 MG Albuterol 2.5 mg Q3HPRN PRN NEB 03/18/25 08:45 03/18/25 23:43 2.5 MG Albuterol 2.5 mg Q6HWA NEB 03/18/25 12:00 03/22/25 06:28 2.5 MG Ipratropium [place] 0.5 mg Q3HPRN PRN NEB 03/18/25 08:45 03/18/25 23:43 0.5 MG Ipratropium [place] 0.5 mg Q6HWA NEB 03/18/25 12:00 03/22/25 06:27 0.5 MG Sodium Chloride 1,000 ml @ 100 mls/hr Q10H IV 03/18/25 10:30 03/22/25 06:24 100 MLS/HR Ceftriaxone Sodium 50 ml @ 100 mls/hr DAILY@09 IV 03/19/25 09:00 03/22/25 09:35 100 MLS/HR Hydroxyzine Pamoate 50 mg Q6HP PRN PO 03/20/25 13:45 Metoprolol Tartrate 25 mg BID PO 03/20/25 22:00 03/22/25 09:37 25 MG Fluoxetine HCl 40 mg DAILY PO 03/21/25 10:00 03/22/25 09:36 40 MG Losartan Potassium 50 mg DAILY PO 03/21/25 10:00 03/22/25 09:36 50 MG Hydralazine HCl 10 mg Q6HP PRN IV 03/21/25 08:30 03/21/25 22:31 10 MG Medication adjusted: Yes Labs ordered: No Psychotherapy provided: No Type: Voluntary Diagnosis: Past diagnosis of bipolar disorder and schizophrenia. Plan : The pt appears to be quite delirious. It not able to tell when or why he is here. only oriented to his name and being in a hospital. Pt is a poor historian, does not give coherent answers, tends to say yes to things without much thought just to stop having to talk about something. There appears to be some confabulation ongoing. Pt's alcohol use status is unknown, but pt has a diagnosis of cirrhosis. His presentation may be related to some level of Wernicke/Korsakoff encephalopathy. Alternatively, a sudden cessation of stopping temazepam which may have been chronically used at 3 mg qhs, may have precipitated/or enhanced a metabolic delirium. Pt's initial ammonia level was below 10 which is well within normal so that is not suggestive of hyperammonemia as a possible etiology. RN said that it is known that the pt was taking Seroquel 100 mg and Temazepam 2 mg qhs in addition to prozac which is resumed in the hospital. There does not seem to be a reason to withhold these meds from a psychiatric standpoint as their resumption may help relieve the delirium (especially temazepam). Highly recommend initiating melatonin 5 mg PO QHs from today (this can help relieve symptoms of delirium). Not to be taken longer than 12 days at a stretch. A low dose of haldol (1 to 5 mg BID PO) may be tried to explore possible benefit and some reduction in delirium. But since there is no agitation associated with the delirium, no paranoia, it may do nothing. If the pt has undifferentiated schizophrenia or disorganized sub-type of schizophrenia, this may help. So it is worth trying starting at a low dose and increasing daily. Once at a dose of 5 mg BID, please add cogentin 1 mg BID to reduce the possibility of EPS. Neurology should be consulted to explore possible neurological etiology (vascular changes, stroke, ictal/post-ictal states) and see if that can be treated towards some benefit for the pt. In conclusion, there does not appear to be a fatou psychiatric reason for this presentation which appears to be either metabolic or cerebral in origin. Further exploration of etiology is recommended and if none is found, then transfer to SNF or memory care (after a diagnosis of dementia or W/K encephalopathy which is not currently being considered) may have to be explored. History of Present Illness Reason for Consult : Recommendations for psychiatric treatment. HPI : 59 y/o male admitted on 03/15/25 for AMS. Pt has multiple medical problems as listed below. Pt does not remember when he came to the hospital, does not know why he came here. Pt is unable to give any relevant information or answer questions coherently. Pt pt is bilingual and starts to switch between upper sorbian and ethiopian as he chooses. Nurse present at the bedside reminded pt that he has been communicating with staff well in ethiopian the entire time he has been here. The pt then smiles sheepishly and resumes talking in ethiopian, but still embellishes with upper sorbian frequently. He says he has been calling me. Pt was reminded that we are not acquainted, this did not seem to deter the pt in making similar claims in subsequent minutes. When asked about desire to commit suicide, the pt says yes (but it looks like he just doesn't want to answer the question earnestly and answers without much thinking and no change in affect). This was asked a number of times to be c óscar, finally pt says he deosn't want to hurt himself. At this point he elects to end the conversation. Past Psychiatric History : Past diagnosis of bipolar disorder and/or schizophrenia. Past Medical History : metabolic encephalopathy probably secondary to prescribed medications, acute respiratory failure with mechanical ventilation, cirrhosis, acute kidney injury, vasomotor nephropathy, history of CVA. Social History : Lives with mother, unk. employment hx, possibly on disability. Assessment/Diagnosis/Plan Reviewed: Consults, Care Plan, Labs, Medications JACE REILLY MD Mar 22, 2025 10:56
--- NOTE | 2025-03-22 16:59 | DVHPN2 ---
Subjective Better Reviewed: Care Plan, H&P, Labs, Medications, Previous Orders, Radiology, Other (Consultants) Changes from previous H/P or p: No Changes General: Per HPI Objective Vitals Vital Signs Date Time Temp Pulse Resp B/P (MAP) Pulse Ox O2 Delivery O2 Flow Rate FiO2 03/22/25 13:00 98.6 90 20 161/86 (111) 98 98.6 03/22/25 11:17 Room Air 03/22/25 11:17 0 21 21 Intake/Output Intake and Output 03/22/25 07:00 Intake Total 3310 ml Output Total 600 ml Balance 2710 ml Intake Oral 1060 ml IV Total 2250 ml Output Urine Total 600 ml # Voids 6 # Bowel Movements 4 General Appearance: Alert, Other (Some confabulation) HEENT: Atraumatic, PERRLA Lungs: Clear to auscultation, Normal air movement, Other (Mechanical ventilation) Cardiovascular: Regular rate Abdomen: Normal bowel sounds Skin: Dry Medications Current Medications Medications Dose Ordered Sig/Niesha Route Start Time Stop Time Status Last Admin Dose Admin Vancomycin HCl 200 ml @ 200 mls/hr Q12HR IV 03/15/25 22:00 UNV Ondansetron HCl 4 mg Q4HP PRN IV 03/15/25 17:15 03/21/25 22:30 4 MG Acetaminophen 650 mg Q6HP PRN PO 03/15/25 17:15 03/21/25 22:32 650 MG Nitroglycerin 0.4 mg Q5MINP PRN SL 03/15/25 17:15 Morphine Sulfate 2 mg Q30M PRN IV 03/15/25 17:15 Diagnostic Test (Pha) 1 strip Q6HR 03/15/25 18:00 03/22/25 11:06 1 STRIP Insulin Human Regular Q6HR SC 03/15/25 18:00 03/22/25 11:11 3 UNITS Dextrose 50 ml UD PRN IV 03/15/25 17:15 Atorvastatin Calcium 20 mg HS NG 03/15/25 22:00 03/21/25 22:33 20 MG Folic Acid 1 mg DAILY PO 03/16/25 10:00 03/22/25 09:37 1 MG Enoxaparin Sodium 40 mg DAILY SC 03/18/25 10:00 03/22/25 09:38 40 MG Albuterol 2.5 mg Q3HPRN PRN NEB 03/18/25 08:45 03/18/25 23:43 2.5 MG Albuterol 2.5 mg Q6HWA NEB 03/18/25 12:00 03/22/25 11:17 2.5 MG Ipratropium [place] 0.5 mg Q3HPRN PRN NEB 03/18/25 08:45 03/18/25 23:43 0.5 MG Ipratropium [place] 0.5 mg Q6HWA NEB 03/18/25 12:00 03/22/25 11:18 0.5 MG Sodium Chloride 1,000 ml @ 100 mls/hr Q10H IV 03/18/25 10:30 03/22/25 06:24 100 MLS/HR Ceftriaxone Sodium 50 ml @ 100 mls/hr DAILY@09 IV 03/19/25 09:00 03/22/25 09:35 100 MLS/HR Hydroxyzine Pamoate 50 mg Q6HP PRN PO 03/20/25 13:45 Metoprolol Tartrate 25 mg BID PO 03/20/25 22:00 03/22/25 09:37 25 MG Fluoxetine HCl 40 mg DAILY PO 03/21/25 10:00 03/22/25 09:36 40 MG Losartan Potassium 50 mg DAILY PO 03/21/25 10:00 03/22/25 09:36 50 MG Hydralazine HCl 10 mg Q6HP PRN IV 03/21/25 08:30 03/21/25 22:31 10 MG Temazepam 15 mg HSPRN PRN PO 03/22/25 17:00 UNV Quetiapine Fumarate 50 mg HS PO 03/22/25 22:00 UNV Haloperidol 1 mg BID PO 03/22/25 22:00 UNV Laboratory Results Laboratory Tests 03/21/25 04:50 Urinalysis Test 03/15/25 14:29 03/17/25 11:40 Urine Mucus Few (None Seen) Urine Color Colorless (Yellow) Urine Clarity Clear (Clear) Urine pH 5.5 (5.0-9.0) Urine Specific [place] 1.007 (1.001-1.035) Urine Protein 1+ (Negative) H Urine Ketones Negative (Negative) Urine Blood 1+ /uL (Negative) H Urine Nitrite Negative (Negative) Urine Bilirubin Negative (Negative) Urine Urobilinogen Normal mg/dL (Negative) Urine Leukocyte Esterase Negative /uL (Negative) Urine RBC 8 /hpf (0 - 3) Urine Microscopic WBC 4 /HPF (0-3) H Urine Squamous Epithelial Cells Few /hpf (<5) Urine Bacteria Few /hpf (None Seen) H Urine Hyaline Casts Few /lpf (0 - 2) Urine Yeast (Budding) Few /hpf (None Seen) Urine Creatinine 13.71 mg/dL (30.0-125.0) L Urine Protein/Creatinine Ratio 4.00 Urine Sodium 144 mmol/L (40-220) Urine Glucose 3+ mg/dL (Normal) H Urine Total Protein 54.9 mg/dL (1-14) H Microbiology Microbiology Date/Time Source Procedure Growth Status 03/16/25 02:59 Nose MRSA Screen - Final Complete 03/15/25 14:29 Urine - [place] Urine Culture - Final Complete 03/15/25 14:27 Blood Blood Culture - Final NO GROWTH AFTER 5 DAYS OF INCUBATION. Complete 03/15/25 13:25 Sputum Gram Stain - Final Complete 03/15/25 13:25 Respiratory Culture - Final Staphylococcus aureus Complete Assessment/Plan Assessment/Plan Status post acute hypoxemic respiratory failure Encephalopathy Bipolar disorder Schizophrenia History of CVA Possible liver cirrhosis Questionable Wernicke Korsakoff's encephalopathy Plan: Upon discussion with the psychiatrist, Dr. Rojas at [phone] and per his consultation note we will go ahead and obtain head MRI, neurology consultation, restart the meds upon and Seroquel, try low-dose Haldol and give thiamine. Further plan per orders Plan discussed with: Patient, Other (Nursing and psychiatrist) My Orders Orders - KELSEY WHEELER MD Procedure Category Date Status Time * Neurology Consult CONS 03/22/25 Transmitted 16:49 Brain Head Wo Contrast MRI 03/22/25 Logged 16:49 Temazepam (Restoril) PHA 03/22/25 Logged 17:00 Quetiapine Fumarate PHA 03/22/25 Logged Tablet (Seroquel Tab 22:00 Haloperidol Tablet PHA 03/22/25 Logged (Haldol Tablet) 22:00 Date of Service: Mar 22, 2025 Billing Provider: KELSEY WHEELER MD Common Visit Codes: [id number] INP/OBS CARE(HIGH) KELSEY WHEELER MD Mar 22, 2025 16:59
[2025-03-22] MEDS: THIAMINE 100mg/ml INJ (200mg/2ml VIAL) IV ONE (17:19)
[2025-03-22] MEDS: HALOPERIDOL 1 MG TAB PO SCH (20:33)
[2025-03-22] MEDS: QUEtiapine FUMARATE 25 MG TAB PO SCH (20:33)
[2025-03-22] MEDS: TEMAZEPAM 15 MG CAP PO PRN (23:10)
[2025-03-23] VITALS (12 sets, daily range): BP systolic 126–174; BP diastolic 61–97; PULSE 79–103; RESP 17–18; TEMP 97.8–98.8; O2SAT 94–100
[2025-03-23] MEDS: THIAMINE 100mg/ml INJ (200mg/2ml VIAL) IV SCH (08:34)
[2025-03-23] MEDS: IPRATROPIUM BROM 0.5 MG/2.5ML INH SOL ONE (11:50)
[2025-03-23] MEDS: ALBUTEROL SULF 2.5 MG/0.5ML(0.5%) NEB SOLN ONE (11:50)
--- NOTE | 2025-03-23 15:08 | DVH ---
MRI BRAIN HEAD WO CONTRAST INDICATION: aloc EXAM DATE: 03/23/2025 01:29 PM COMPARISON: 03/15 PROCEDURE: Using a 1.5 Keeley scanner, multisequence multiplanar imaging of the brain was obtained. FINDINGS: The brainshows normal morphology and signal characteristics. No abnormal T2 hyperintensity, diffusion restriction, or susceptibility hypointensity is present. The ventricles are normal in size . The midline structures are intact. The major intracranial flow voids are present. The aerated space s are normal. The orbital contents and extracranial soft tissues appear normal. IMPRESSION: No acute abnormal MRI findings of the brain.
--- NOTE | 2025-03-23 16:07 | DVHPN2 ---
Subjective Same Reviewed: Care Plan, H&P, Labs, Medications, Previous Orders, Radiology, Other (Consultants) Changes from previous H/P or p: No Changes General: Per HPI Objective Vitals Vital Signs Date Time Temp Pulse Resp B/P (MAP) Pulse Ox O2 Delivery O2 Flow Rate FiO2 03/23/25 11:57 92 18 99 03/23/25 11:47 Room Air 03/23/25 11:47 0 21 03/23/25 08:56 98.2 158/89 (112) 98.2 Intake/Output Intake and Output 03/23/25 07:00 Intake Total 3090 ml Output Total 2600 ml Balance 490 ml Intake Oral 2290 ml IV Total 800 ml Output Urine Total 2600 ml Stool Total 0 ml General Appearance: Alert, Other (Some confabulation) HEENT: Atraumatic Lungs: Clear to auscultation, Normal air movement, Other (Mechanical ventilation) Cardiovascular: Regular rate Abdomen: Normal bowel sounds Skin: Dry Medications Current Medications Medications Dose Ordered Sig/Niesha Route Start Time Stop Time Status Last Admin Dose Admin Vancomycin HCl 200 ml @ 200 mls/hr Q12HR IV 03/15/25 22:00 UNV Ondansetron HCl 4 mg Q4HP PRN IV 03/15/25 17:15 03/21/25 22:30 4 MG Acetaminophen 650 mg Q6HP PRN PO 03/15/25 17:15 03/21/25 22:32 650 MG Nitroglycerin 0.4 mg Q5MINP PRN SL 03/15/25 17:15 Morphine Sulfate 2 mg Q30M PRN IV 03/15/25 17:15 Diagnostic Test (Pha) 1 strip Q6HR 03/15/25 18:00 03/23/25 11:53 1 STRIP Insulin Human Regular Q6HR SC 03/15/25 18:00 03/23/25 11:53 3 UNITS Dextrose 50 ml UD PRN IV 03/15/25 17:15 Atorvastatin Calcium 20 mg HS NG 03/15/25 22:00 03/22/25 20:33 20 MG Folic Acid 1 mg DAILY PO 03/16/25 10:00 03/23/25 08:37 1 MG Enoxaparin Sodium 40 mg DAILY SC 03/18/25 10:00 03/23/25 08:33 40 MG Albuterol 2.5 mg Q3HPRN PRN NEB 03/18/25 08:45 03/18/25 23:43 2.5 MG Albuterol 2.5 mg Q6HWA NEB 03/18/25 12:00 03/23/25 11:47 2.5 MG Ipratropium [place] 0.5 mg Q3HPRN PRN NEB 03/18/25 08:45 03/18/25 23:43 0.5 MG Ipratropium [place] 0.5 mg Q6HWA NEB 03/18/25 12:00 03/23/25 11:47 0.5 MG Sodium Chloride 1,000 ml @ 100 mls/hr Q10H IV 03/18/25 10:30 03/23/25 11:50 100 MLS/HR Ceftriaxone Sodium 50 ml @ 100 mls/hr DAILY@09 IV 03/19/25 09:00 03/23/25 08:32 100 MLS/HR Hydroxyzine Pamoate 50 mg Q6HP PRN PO 03/20/25 13:45 Metoprolol Tartrate 25 mg BID PO 03/20/25 22:00 03/23/25 08:41 25 MG Fluoxetine HCl 40 mg DAILY PO 03/21/25 10:00 03/23/25 08:36 40 MG Losartan Potassium 50 mg DAILY PO 03/21/25 10:00 03/23/25 08:40 50 MG Hydralazine HCl 10 mg Q6HP PRN IV 03/21/25 08:30 03/21/25 22:31 10 MG Temazepam 15 mg HSPRN PRN PO 03/22/25 17:00 03/22/25 23:10 15 MG Thiamine HCl 100 mg DAILY IV 03/23/25 10:00 03/23/25 08:34 100 MG Haloperidol 2 mg BID PO 03/23/25 22:00 Laboratory Results Laboratory Tests 03/21/25 04:50 Urinalysis Test 03/15/25 14:29 03/17/25 11:40 Urine Mucus Few (None Seen) Urine Color Colorless (Yellow) Urine Clarity Clear (Clear) Urine pH 5.5 (5.0-9.0) Urine Specific [place] 1.007 (1.001-1.035) Urine Protein 1+ (Negative) H Urine Ketones Negative (Negative) Urine Blood 1+ /uL (Negative) H Urine Nitrite Negative (Negative) Urine Bilirubin Negative (Negative) Urine Urobilinogen Normal mg/dL (Negative) Urine Leukocyte Esterase Negative /uL (Negative) Urine RBC 8 /hpf (0 - 3) Urine Microscopic WBC 4 /HPF (0-3) H Urine Squamous Epithelial Cells Few /hpf (<5) Urine Bacteria Few /hpf (None Seen) H Urine Hyaline Casts Few /lpf (0 - 2) Urine Yeast (Budding) Few /hpf (None Seen) Urine Creatinine 13.71 mg/dL (30.0-125.0) L Urine Protein/Creatinine Ratio 4.00 Urine Sodium 144 mmol/L (40-220) Urine Glucose 3+ mg/dL (Normal) H Urine Total Protein 54.9 mg/dL (1-14) H Microbiology Microbiology Date/Time Source Procedure Growth Status 03/16/25 02:59 Nose MRSA Screen - Final Complete 03/15/25 14:29 Urine - [place] Urine Culture - Final Complete 03/15/25 14:27 Blood Blood Culture - Final NO GROWTH AFTER 5 DAYS OF INCUBATION. Complete 03/15/25 13:25 Sputum Gram Stain - Final Complete 03/15/25 13:25 Respiratory Culture - Final Staphylococcus aureus Complete Assessment/Plan Assessment/Plan Status post acute hypoxemic respiratory failure Encephalopathy Bipolar disorder Schizophrenia History of CVA Possible liver cirrhosis Questionable Wernicke Korsakoff's encephalopathy Plan: 03/22/2025: Upon discussion with the psychiatrist, Dr. Rojas at [phone] and per his consultation note we will go ahead and obtain head MRI, neurology consultation, restart the meds upon and Seroquel, try low-dose Haldol and give thiamine. Further plan per orders 03/23/2025: Brain MRI is negative. Neurology consultation pending. Increase Haldol to 2 mg b.i.d.. Stop Seroquel due to the QT interval with interaction with Haldol. Further plan per orders Plan discussed with: Patient, Other (Nursing) My Orders Orders - KELSEY WHEELER MD Procedure Category Date Status Time Temazepam (Restoril) PHA 03/22/25 In Process 17:00 Thiamine Inj PHA 03/23/25 In Process 10:00 Brain Head Wo Contrast MRI 03/23/25 Resulted 16:49 Haloperidol Tablet PHA 03/23/25 In Process (Haldol Tablet) 22:00 Ipratropium [place] PHA 03/23/25 In Process (Atrovent Medneb) 11:44 Pharmacy [facility] 03/23/25 In Process Clarification: 13:28 Apply Barrier Cream [facility] 03/23/25 In Process 15:35 Date of Service: Mar 23, 2025 Billing Provider: KELSEY WHEELER MD Common Visit Codes: [id number] INP/OBS CARE(HIGH) KELSEY WHEELER MD Mar 23, 2025 16:07
[2025-03-23] MEDS: HALOPERIDOL 1 MG TAB PO SCH (20:16)
--- NOTE | 2025-03-23 20:30 | DVHPN2 ---
Progress Note - Dictate Date Seen: Mar 22, 2025 Has the PT tested + for MRSA If YES, has PT been informed?: No Medical Necessity Reason Pt with a Central, PICC or Fol: Yes The following are medically ne: Jean Catheter Reason for jean catheter: Strict I&O Subjective Patient seen and examined at bedside. Breathing comfortably on room air Overnight events reviewed. The patient is a 59-year-old gentleman with history of bipolar disorder who presented with altered mental status, was intubated for airway protection. vital signs Vital Sign Date Time Temp Pulse Resp B/P (MAP) Pulse Ox O2 Delivery O2 Flow Rate FiO2 03/23/25 20:15 87 152/89 03/23/25 19:23 18 99 03/23/25 19:17 Room Air* 0 21 03/23/25 16:31 98.4 98.4 Total Intake and Output 03/22/25 03/22/25 03/23/25 15:00 23:00 07:00 Intake Total 50 ml 2150 ml 890 ml Output Total 2000 ml 600 ml Balance 50 ml 150 ml 290 ml medications Current Medications Medications Dose Ordered Sig/Niesha Route Start Time Stop Time Status Last Admin Dose Admin Vancomycin HCl 200 ml @ 200 mls/hr Q12HR IV 03/15/25 22:00 UNV Ondansetron HCl 4 mg Q4HP PRN IV 03/15/25 17:15 03/21/25 22:30 4 MG Acetaminophen 650 mg Q6HP PRN PO 03/15/25 17:15 03/21/25 22:32 650 MG Nitroglycerin 0.4 mg Q5MINP PRN SL 03/15/25 17:15 Morphine Sulfate 2 mg Q30M PRN IV 03/15/25 17:15 Diagnostic Test (Pha) 1 strip Q6HR 03/15/25 18:00 03/23/25 17:26 1 STRIP Insulin Human Regular Q6HR SC 03/15/25 18:00 03/23/25 17:26 3 UNITS Dextrose 50 ml UD PRN IV 03/15/25 17:15 Atorvastatin Calcium 20 mg HS NG 03/15/25 22:00 03/23/25 20:16 20 MG Folic Acid 1 mg DAILY PO 03/16/25 10:00 03/23/25 08:37 1 MG Enoxaparin Sodium 40 mg DAILY SC 03/18/25 10:00 03/23/25 08:33 40 MG Albuterol 2.5 mg Q3HPRN PRN NEB 03/18/25 08:45 03/18/25 23:43 2.5 MG Albuterol 2.5 mg Q6HWA [facility] 03/18/25 12:00 03/23/25 19:16 2.5 MG Ipratropium [place] 0.5 mg Q3HPRN PRN NEB 03/18/25 08:45 03/18/25 23:43 0.5 MG Ipratropium [place] 0.5 mg Q6HWA [facility] 03/18/25 12:00 03/23/25 19:17 0.5 MG Sodium Chloride 1,000 ml @ 100 mls/hr Q10H IV 03/18/25 10:30 03/23/25 11:50 100 MLS/HR Ceftriaxone Sodium 50 ml @ 100 mls/hr DAILY@09 IV 03/19/25 09:00 03/23/25 08:32 100 MLS/HR Hydroxyzine Pamoate 50 mg Q6HP PRN PO 03/20/25 13:45 Metoprolol Tartrate 25 mg BID PO 03/20/25 22:00 03/23/25 20:15 25 MG Fluoxetine HCl 40 mg DAILY PO 03/21/25 10:00 03/23/25 08:36 40 MG Losartan Potassium 50 mg DAILY PO 03/21/25 10:00 03/23/25 08:40 50 MG Hydralazine HCl 10 mg Q6HP PRN IV 03/21/25 08:30 03/21/25 22:31 10 MG Temazepam 15 mg HSPRN PRN PO 03/22/25 17:00 03/23/25 20:14 15 MG Thiamine HCl 100 mg DAILY IV 03/23/25 10:00 03/23/25 08:34 100 MG Haloperidol 2 mg BID PO 03/23/25 22:00 03/23/25 20:16 2 MG objective Gen.: Patient lying in bed in no apparent distress. On room air. Head: Normocephalic, atraumatic. Eyes: EOMI/PERRLA. Ears: Normal hearing. Normal anatomy. Neck/trachea: Trachea midline, supple. Nose: Normal external anatomy. Mouth: Moist mucous membranes. Chest: Decreased air entry bilaterally. No wheezing or rhonchi. Cardiovascular: Positive S1, positive S2. Regular rate and rhythm. Abdomen: Positive bowel sounds in all 4 quadrants. Soft, non-tender, non- distended. : Deferred. Rectal: Deferred. Skin: Warm, dry. Intact. Extremities: 2+ radial pulses bilaterally. No lower extremity edema. Neuro: Awake, alert, oriented x3. No gross motor or sensory deficits. Cranial nerves II through XII intact. Gait not assessed. laboratory and microbiology Laboratory Tests 03/21/25 04:50 Test 03/21/25 04:50 Range/Units Serum Glucose 141 H 74-106 mg/dL Assessment/Plan Impression: Acute hypoxemic respiratory failure Acute metabolic encephalopathy Cirrhosis Acute kidney injury Cerebrovascular accident Events: Patient seen at bedside. Remains on room air, breathing comfortably No distress. Head of bed elevation Aspiration precautions Puree diet Obtain brain MRI Follow up Neuro recommendations Haldol Blood pressure control Accu-Cheks, ISS. Continue antibiotics Incentive spirometry Continue bronchodilators Lovenox for DVT prophylaxis Labs and imaging studies reviewed Plan: S/p extubation on 03/19/25 Supplemental oxygen PRN Titrate to keep O2 sats above 90%. Continue supportive care/bronchodilators Antibiotics Monitor renal function Monitor electrolytes. Supplement as necessary. Monitor ins and outs. GI and DVT prophylaxis Prognosis: Guarded given patient's multiple co-morbidities. Rest of plan per hospitalist and other consultants. Thank you, CHANTEL Bruce, for allowing me to participate in this patient's care. Further recommendations will depend on the patient's clinical course. Please do not hesitate to contact me if you have any questions or concerns. This medical document was created using an electronic medical record system with [employer] dictation system. Although these documentations are being carefully reviewed, there may still be some phonetic and typographical changes. The errors are purely typographical, due to imperfection on the software program, and do not reflect any compromise in the patient's medical care. Dietary Evaluation Review Comments: 1) TF Glucerna 1.2 Steven @ 70ml/hr x 24 hr (goal). Start @ 20ml/hr, increase 10ml/hr Q4H until goal rate is reached. TF at goal volume provides 100% energy & protein needs - 2016 kcal, 93 gm protein, 1352 ml free water 2) Water flush 170ml Q6H if allowed 3) TPN if NPO>7 days 4) Vit C 200mg daily, zinc sulfate 220mg BID x 10 days, [place] 1 pk BID, MVI w/ minerals 1 tab daily 5) Monitor I/O, weight trend, lab values and skin integrity Expected Outcomes/Goals: To meet >75% estimated needs Fu 2-3 days Plan discussed with: Patient, Other (RN) CHELY CHARLES MD Mar 23, 2025 20:30
--- NOTE | 2025-03-23 20:31 | DVHPN2 ---
Progress Note - Dictate Date Seen: Mar 23, 2025 Has the PT tested + for MRSA If YES, has PT been informed?: No Medical Necessity Reason Pt with a Central, PICC or Fol: Yes The following are medically ne: Jean Catheter Reason for jean catheter: Strict I&O Subjective Patient seen and examined at bedside. Breathing comfortably on room air Overnight events reviewed. The patient is a 59-year-old gentleman with history of bipolar disorder who presented with altered mental status, was intubated for airway protection. vital signs Vital Sign Date Time Temp Pulse Resp B/P (MAP) Pulse Ox O2 Delivery O2 Flow Rate FiO2 03/23/25 20:15 87 152/89 03/23/25 19:23 18 99 03/23/25 19:17 Room Air* 0 21 03/23/25 16:31 98.4 98.4 Total Intake and Output 03/22/25 03/22/25 03/23/25 15:00 23:00 07:00 Intake Total 50 ml 2150 ml 890 ml Output Total 2000 ml 600 ml Balance 50 ml 150 ml 290 ml medications Current Medications Medications Dose Ordered Sig/Niesha Route Start Time Stop Time Status Last Admin Dose Admin Vancomycin HCl 200 ml @ 200 mls/hr Q12HR IV 03/15/25 22:00 UNV Ondansetron HCl 4 mg Q4HP PRN IV 03/15/25 17:15 03/21/25 22:30 4 MG Acetaminophen 650 mg Q6HP PRN PO 03/15/25 17:15 03/21/25 22:32 650 MG Nitroglycerin 0.4 mg Q5MINP PRN SL 03/15/25 17:15 Morphine Sulfate 2 mg Q30M PRN IV 03/15/25 17:15 Diagnostic Test (Pha) 1 strip Q6HR 03/15/25 18:00 03/23/25 17:26 1 STRIP Insulin Human Regular Q6HR SC 03/15/25 18:00 03/23/25 17:26 3 UNITS Dextrose 50 ml UD PRN IV 03/15/25 17:15 Atorvastatin Calcium 20 mg HS NG 03/15/25 22:00 03/23/25 20:16 20 MG Folic Acid 1 mg DAILY PO 03/16/25 10:00 03/23/25 08:37 1 MG Enoxaparin Sodium 40 mg DAILY SC 03/18/25 10:00 03/23/25 08:33 40 MG Albuterol 2.5 mg Q3HPRN PRN NEB 03/18/25 08:45 03/18/25 23:43 2.5 MG Albuterol 2.5 mg Q6HWA [facility] 03/18/25 12:00 03/23/25 19:16 2.5 MG Ipratropium [place] 0.5 mg Q3HPRN PRN NEB 03/18/25 08:45 03/18/25 23:43 0.5 MG Ipratropium [place] 0.5 mg Q6HWA [facility] 03/18/25 12:00 03/23/25 19:17 0.5 MG Sodium Chloride 1,000 ml @ 100 mls/hr Q10H IV 03/18/25 10:30 03/23/25 11:50 100 MLS/HR Ceftriaxone Sodium 50 ml @ 100 mls/hr DAILY@09 IV 03/19/25 09:00 03/23/25 08:32 100 MLS/HR Hydroxyzine Pamo[place] 50 mg Q6HP PRN PO 03/20/25 13:45 Metoprolol Tartrate 25 mg BID PO 03/20/25 22:00 03/23/25 20:15 25 MG Fluoxetine HCl 40 mg DAILY PO 03/21/25 10:00 03/23/25 08:36 40 MG Losartan Potassium 50 mg DAILY PO 03/21/25 10:00 03/23/25 08:40 50 MG Hydralazine HCl 10 mg Q6HP PRN IV 03/21/25 08:30 03/21/25 22:31 10 MG Temazepam 15 mg HSPRN PRN PO 03/22/25 17:00 03/23/25 20:14 15 MG Thiamine HCl 100 mg DAILY IV 03/23/25 10:00 03/23/25 08:34 100 MG Haloperidol 2 mg BID PO 03/23/25 22:00 03/23/25 20:16 2 MG objective Gen.: Patient lying in bed in no apparent distress. On room air. Head: Normocephalic, atraumatic. Eyes: EOMI/PERRLA. Ears: Normal hearing. Normal anatomy. Neck/trachea: Trachea midline, supple. Nose: Normal external anatomy. Mouth: Moist mucous membranes. Chest: Decreased air entry bilaterally. No wheezing or rhonchi. Cardiovascular: Positive S1, positive S2. Regular rate and rhythm. Abdomen: Positive bowel sounds in all 4 quadrants. Soft, non-tender, non- distended. : Deferred. Rectal: Deferred. Skin: Warm, dry. Intact. Extremities: 2+ radial pulses bilaterally. No lower extremity edema. Neuro: Awake, alert, oriented x3. No gross motor or sensory deficits. Cranial nerves II through XII intact. Gait not assessed. laboratory and microbiology Laboratory Tests 03/21/25 04:50 Test 03/21/25 04:50 Range/Units Serum Glucose 141 H 74-106 mg/dL Assessment/Plan Impression: Acute hypoxemic respiratory failure Acute metabolic encephalopathy Cirrhosis Acute kidney injury Cerebrovascular accident Events: Patient seen at bedside. Remains on room air, breathing comfortably No distress. Head of bed elevation Aspiration precautions Puree diet Blood pressure control Accu-Cheks for glycemic control Continue antibiotics Incentive spirometry Continue bronchodilators Lovenox for DVT prophylaxis Disposition per hospitalist. Labs and imaging studies reviewed Plan: S/p extubation on 03/19/25 Supplemental oxygen PRN Titrate to keep O2 sats above 90%. Continue supportive care/bronchodilators Antibiotics Monitor renal function Monitor electrolytes. Supplement as necessary. Monitor ins and outs. GI and DVT prophylaxis Prognosis: Guarded given patient's multiple co-morbidities. Rest of plan per hospitalist and other consultants. Thank you, CHANTEL Bruce, for allowing me to participate in this patient's care. Further recommendations will depend on the patient's clinical course. Please do not hesitate to contact me if you have any questions or concerns. This medical document was created using an electronic medical record system with [employer] dictation system. Although these documentations are being carefully reviewed, there may still be some phonetic and typographical changes. The errors are purely typographical, due to imperfection on the software program, and do not reflect any compromise in the patient's medical care. Dietary Evaluation Review Comments: 1) TF Glucerna 1.2 [place] @ 70ml/hr x 24 hr (goal). Start @ 20ml/hr, increase 10ml/hr Q4H until goal rate is reached. TF at goal volume provides 100% energy & protein needs - 2016 kcal, 93 gm protein, 1352 ml free water 2) Water flush 170ml Q6H if allowed 3) TPN if NPO>7 days 4) Vit C 200mg daily, zinc sulfate 220mg BID x 10 days, [place] 1 pk BID, MVI w/ minerals 1 tab daily 5) Monitor I/O, weight trend, lab values and skin integrity Expected Outcomes/Goals: To meet >75% estimated needs Fu 2-3 days Plan discussed with: Patient, Other (CHRIS Peña) CHELY CHARLES MD Mar 23, 2025 20:31
--- NOTE | 2025-03-23 20:56 | DVHINCON2 ---
Date of service: Mar 23, [address] Hammer Reason for Consultation Altered mentation History of Present Illness Mr. Gray is 59 years old gentleman with a history of diabetes, liver cirrhosis, he was brought to the [facility] on 03/15/2025 with a chief company of [email or web address], and the patient was confirmed to have hypoxic respiratory failure and he was intubated the same day and extubated on 03/19/2025 with appropriate treatment, but the patient has noticed to be mentally altered/confused, he also had hallucination in the hospital At this time, he is awake, oriented to person, place, he has no clue about a year and the month, he does not answer my questions properly, his nurse and sitter reported confusion on him He was seen by a tele psychiatrist, the patient was said to have previous diagnosed bipolar disorder and schizophrenia, low dose of Haldol was recommended History and physical 03/15/2025: 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 uses a wheelchair and electric scooter [phone], no answer Blood culture, 03/15/2025: Negative Respiratory culture, 03/15/2025: Staphylococcus aureus UDS, 03/15/2025: Benzo Plasma alcohol, 03/15/2025: Normal Urinalysis, 03/15/2025: WBC: 1, urine leukocyte esterase: Negative ABG, 03/15/2025: Metabolic acidosis 03/19/2021: Metabolic acidosis WBC/HB/PLT/MCV, 03/21/2025: 10.4/13/617/86.1 BUN/CR, 03/15/2025: 62/3.16, 03/17/2025: 20/1.53, 03/20/2025: 20/1.31 HGB A1c, 03/15/2025: 5.6 Lactic acid, 03/15/2025: 1.7 Liver function tests, 03/15/2025: Unremarkable Ammonia, 03/15/25: Normal Chest x-ray, 03/15/2025: 1. Endotracheal tube 2.1 cm above the lucrecia 2. NG tube coursing into the stomach but not identified distally MRI head, 03/23/2025: No acute abnormal MRI findings of the brain. Past Medical History Diabetes, liver cirrhosis Past Surgical History Right BKA Family History: Patient reports no known family medical history. Family History Unknown Social History Unknown Allergies: Coded Allergies: NO KNOWN ALLERGIES (Unverified , 03/15/25) Home Meds Reported Medications Gabapentin (Once-Daily) (Gabapentin) 300 Mg Tab, 400 MG PO, TAB 03/15/25 Insulin Lispro (Insulin Lispro) 100 Unit/Ml Inj, 15 UNIT IJ, INJ 03/15/25 Insulin Lispro (Insulin Lispro) 100 Unit/Ml Inj, 100 UNIT IJ, INJ 03/15/25 Insulin Glargine (Lantus) 100 Unit/Ml Inj, 40 UNIT SC, INJ 03/15/25 Metoprolol Tartrate (Metoprolol Tartrate) 50 Mg Tab, 50 MG PO for 30 Days, MG 03/15/25 Hydroxyzine Hcl (Hydroxyzine Hcl) 50 Mg Tab, 50 MG PO for 30 Days, MG 03/15/25 Apixaban Base (ELIQUIS) 5 Mg Tab, 5 MG PO BID, TAB 03/15/25 Ertugliflozin l-Pyroglutamic A (Steglatro) 5 Mg Tab, 5 MG PO, TAB 03/15/25 Amlodipine Besylate (NORVASC TABLET) 5 Mg Tb, 1 TAB PO DAILY, #90 TAB 3 Refills 03/15/25 Baclofen (Baclofen) 10 Mg Tab, 0 PO Q8HR for 30 Days, MG 03/15/25 Quetiapine Fumerate (QUETIAPINE FUMARATE) 100 Mg Tab, 100 MG PO for 30 Days, MG 03/15/25 Folic Acid (Folic Acid) 1 Mg Tab, 1 MG PO DAILY for 30 Days, MG 03/15/25 Temazepam (Temazepam) 30 Mg Cap, 30 MG PO, CAP 03/15/25 Atorvastatin Calcium (ATORVASTATIN CALCIUM) 20 Mg Tab, 20 MG PO DAILY, TAB 03/15/25 Losartan Potassium (Losartan Potassium) 50 Mg Tab, 50 MG PO DAILY for 30 Days, MG 03/15/25 Fluoxetine HCl (Pmdd) (Fluoxetine HCl) 20 Mg Tab, 20 MG PO, TAB 03/15/25 Metformin Hydrochloride (Metformin Hcl) 850 Mg Tab, 850 MG PO for 30 Days, MG 03/15/25 Atorvastatin Calcium (Lipitor) 20 Mg Tab 03/15/25 Folic Acid (Folic Acid) 1 Mg Tab, 1 TAB PO DAILY 03/15/25 Current Medications Current Medications Medications (Trade) Dose Ordered Sig/Niesha Route PRN Reason Start Time Stop Time Status Last Admin Quetiapine Fumarate (SEROquel TABLET) 50 mg HS PO 03/22/25 22:00 03/23/25 14:03 DC 03/22/25 20:33 Haloperidol (Haldol Tablet) 1 mg BID PO 03/22/25 22:00 03/23/25 11:01 DC 03/23/25 08:36 Thiamine HCl 100 mg DAILY IV 03/23/25 10:00 03/23/25 08:34 Haloperidol (Haldol Tablet) 2 mg BID PO 03/23/25 22:00 03/23/25 20:16 Review of Systems Unknown Vital Signs Vital Signs Date Time Temp Pulse Resp B/P (MAP) Pulse Ox O2 Delivery O2 Flow Rate FiO2 03/23/25 20:15 87 152/89 03/23/25 19:23 18 99 03/23/25 19:17 Room Air* 0 21 03/23/25 16:31 98.4 98.4 Physical Exam GENERAL EXAM: General: the patient is well developed and nourished. No acute distress. HEENT: Normocephalic, neck is supple, no carotid bruits. No mass RESPIRATORY: Normal respiratory effort with symmetrical lung expansion. Lungs clear to auscultation. CARDIOVASCULAR: Regular rate and rhythm with no murmurs. S1, S2. ABDOMEN: Soft, nontender, normal bowel sound MUSCULOSKELETAL EXAM: Status post right AKA NEUROLOGICAL: MENTAL STATUS: Awake and alert. Oriented to person, place SPEECH, LANGUAGE, HIGHER CORTICAL FUNCTION: no aphasia or dysathria. CRANIAL NERVES: #2: Intact visual canas to confrontation. The optic discs were sharp #3,4,6: Pupils are equal, round and reactive. EOMs full and conjugate. No nystagmus. #5: Facial sensation intact in all three divisions bilaterally. Mandibular strength intact. #7: Facial muscles symmetrical and strength intact. #8: Hearing grossly normal to voice. #9,10: Uvula and soft palate rise in the midline. Swallow and voice are normal. #11: Trapezius and sternomastoid strength intact bilaterally. #12: Tongue midline. No fasciculations or atrophy. SENSATION: Sensation to touch and pinprick is normal. MOTOR: Normal tone in the upper and lower extremity. Normal muscle bulk. No fasciculations. No abnormal movements or posturing. Muscle strength of the major groups in the upper extremities is 5/5. Muscle strength of the major groups in the lower extremities is 5/5. REFLEXES: Deep tendon reflexes normal and symmetrical. No pathological reflexes. CEREBELLAR/COORDINATION: Finger to nose is normal bilaterally. GAIT/STATION: deferred. Labs/Diagnostic Data Labs Test 03/23/25 16:45 03/21/25 04:50 03/19/25 10:09 03/19/25 08:21 Range/Units POC Glucose 184 H 70-106 mg/dl White Blood Count 10.4 4.4-10.8 10^3/uL Red Blood Count 4.48 L 4.5-5.90 10^6/uL Hemoglobin 13.0 L 13.5-17.5 g/dL Hematocrit 38.6 L 41.0-53.0 % Mean Corpuscular Volume 86.1 80.0-100.0 fL Mean Corpuscular Hemoglobin 29.0 28.0-32.0 pg Mean Corpuscular Hemoglobin Concent 33.7 32.0-36.0 g/dL Red Cell Distribution Width 14.1 11.8-14.3 % Platelet Count 617 H 140-450 10^3/uL Mean Platelet Volume 7.1 6.9-10.8 fL Neutrophils (%) (Auto) 83.4 H 37.0-80.0 % Lymphocytes (%) (Auto) 8.6 L 10.0-50.0 % Monocytes (%) (Auto) 6.9 0.0-12.0 % Eosinophils (%) (Auto) 0.5 0.0-7.0 % Basophils (%) (Auto) 0.6 0.0-2.0 % Neutrophils # (Auto) 8.6 1.6-8.6 10 ^3/uL Lymphocytes # (Auto) 0.9 0.4-5.4 10 ^3/uL Monocytes # (Auto) 0.7 0-1.3 10 ^3/uL Eosinophils # (Auto) 0.1 0-0.8 10 ^3/uL Basophils # (Auto) 0.1 0-0.2 10 ^3/uL Nucleated Red Blood Cells 0.1 % Sodium Level 142 136-145 mmol/L Potassium Level 3.9 3.5-5.1 mmol/L Chloride Level 111 H 98-107 mmol/L Carbon Dioxide Level 17 L 20-31 mmol/L Anion Gap 14 5-15 Blood Urea Nitrogen 22 9-23 mg/dL Creatinine 1.29 0.700-1.30 mg/dL Glomerular Filtration Rate Calc 63 >90 mL/min BUN/Creatinine Ratio 17.1 10.0-20.0 Serum Glucose 141 H 74-106 mg/dL Calcium Level 9.7 8.7-10.4 mg/dL Blood Gas Specimen Type Arterial Blood Gas Sample Site Right radial Blood Gas Patient Temperature 37.0 Arterial Blood Date Drawn [id number] Arterial Blood pH 7.335 L 7.350-7.450 Arterial Blood Partial Pressure CO2 32.1 L 35.0-48.0 mmHg Arterial Blood Partial Pressure O2 81.4 L 83.0-108.0 mmHg Arterial Blood HCO3 16.7 L 21.0-28.0 mmol/L Arterial Blood Oxygen Saturation 94.8 94.0-98.0 % Arterial Blood Base Excess -8.1 L -2.0-3.0 mmol/L Arterial Blood Oxyhemoglobin 94.3 94.0-98.0 % Arterial Blood Carboxyhemoglobin 0.3 L 0.5-1.5 % Arterial Blood Methemoglobin 0.2 0.0-1.5 % Carmelo Test Yes Blood Gas Total Hemoglobin 11.90 L 13.5-17.5 g/dL Blood Gas Liter Flow 10.00 Blood Gas Modality Cool aerosol FiO2 % 40.0 Vitamin D 25-Hydroxy 44 . ng/mL 25-Hydroxy Vitamin D2 <1.0 . ng/mL 25-Hydroxy Vitamin D3 44 . ng/mL Test 03/19/25 06:02 03/19/25 04:41 03/17/25 11:40 03/17/25 10:54 Range/Units Blood Gas Set Respiration Rate 16.0 Blood Gas Tidal Volume 450.0 Blood Gas PEEP or CPAP 5.0 Folic Acid > 48.00 >5.38 ng/mL Thyroid Stimulating Hormone (TSH) 1.64 0.55-4.78 uIU/mL Urine Color Colorless Yellow Urine Clarity Clear Clear Urine pH 5.5 5.0-9.0 Urine Specific [place] 1.007 1.001-1.035 Urine Protein 1+ H Negative Urine Ketones Negative Negative Urine Blood 1+ H Negative /uL Urine Nitrite Negative Negative Urine Bilirubin Negative Negative Urine Urobilinogen Normal Negative mg/dL Urine Leukocyte Esterase Negative Negative /uL Urine RBC 8 0 - 3 /hpf Urine Microscopic WBC 4 H 0-3 /HPF Urine Squamous Epithelial Cells Few <5 /hpf Urine Bacteria Few H None Seen /hpf Urine Hyaline Casts Few 0 - 2 /lpf Urine Yeast (Budding) Few None Seen /hpf Urine Creatinine 13.71 L 30.0-125.0 mg/dL Urine Protein/Creatinine Ratio 4.00 Urine Sodium 144 40-220 mmol/L Urine Glucose 3+ H Normal mg/dL Urine Total Protein 54.9 H 1-14 mg/dL B-Type Natriuretic Peptide 23.51 0-100 pg/mL Parathyroid Hormone (Intact) 78.1 18.4-80.1 pg/mL Test 03/17/25 08:48 03/16/25 04:56 03/15/25 15:23 03/15/25 14:29 Range/Units Phosphorus Level 3.8 2.4-5.1 mg/dL Magnesium Level 1.7 1.6-2.6 mg/dL Total Bilirubin 0.2 0.2-1.0 mg/dL Aspartate Amino Transferase (AST) 47 H 13-40 U/L Alanine Aminotransferase (ALT) 24 7-40 U/L Alkaline Phosphatase 103 46-116 U/L Total Protein 6.5 5.7-8.2 g/dL Albumin 3.7 3.2-4.8 g/dL Random Vancomycin Level 12.4 H 5-10 ug/mL Troponin I High Sensitivity 4 </=54 ng/L Urine Mucus Few None Seen Urine Opiates Screen Neg NEGATIVE Urine Fentanyl Screen Neg NEGATIVE Urine Barbiturates Screen Neg NEGATIVE Urine Phencyclidine Screen Neg NEGATIVE Urine Amphetamines Screen Neg NEGATIVE Urine Benzodiazepines Screen Pos NEGATIVE Urine Cocaine Screen Neg NEGATIVE Urine Cannabinoids Screen Neg NEGATIVE Test 03/15/25 14:27 03/15/25 13:16 Range/Units Differential Total Cells Counted 100.0 100 Neutrophils % (Manual) 86 H 37.0-80.0 Band Neutrophils % (Manual) 6 Lymphocytes % (Manual) 3 L 10.0-50.0 Monocytes % (Manual) 5 0-12 Eosinophils % (Manual) 0 0-7 Basophils % (Manual) 0 0.0-2.0 Metamyelocytes % (manual) 0 Myelocytes % (Manual) 0 Promyelocytes % (Manual) 0 Blast Cells % (Manual) 0 Reactive Lymphocytes 0 Platelet Estimate Adequate Anisocytosis (manual) Slight Erythrocyte Sedimentation Rate 18 0-20 mm/hr Prothrombin Time 10.3 9.3-11.8 sec Prothrombin Time INR 0.97 0.9-1.15 Activated Partial Thromboplast Time 30.4 24.5-34.5 SEC Hemoglobin A1c 5.6 <5.7 % A1C Lactic Acid Level 1.7 0.4-2.0 mmol/L Ammonia < 10 L 11-32 umol/L C-Reactive Protein High Sensitivity 2.32 H <1.0 mg/dL Plasma/Serum Blood Alcohol < 3.0 <10 mg/dL Hepatitis A IgM Antibody Negative Hepatitis B Surface Antigen Negative Negative Hepatitis B Core IgM Antibody Negative Negative Hepatitis C Antibody Negative Negative Blood Gas Critical Value Read Back Yes Blood Gas Notified Whom Dr. kuhn Blood Gas Notified Time [id number] Blood Gas Notified By Zack rossi, payal Microbiology Date/Time Source Procedure Growth Status 03/16/25 02:59 Nose MRSA Screen - Final Complete 03/15/25 14:29 Urine - [place] Urine Culture - Final Complete 03/15/25 14:27 Blood Blood Culture - Final NO GROWTH AFTER 5 DAYS OF INCUBATION. Complete 03/15/25 13:25 Sputum Gram Stain - Final Complete 03/15/25 13:25 Respiratory Culture - Final Staphylococcus aureus Complete Assessment Altered mental status Metabolic encephalopathy Hypoxic encephalopathy Pneumonia Schizophrenia/bipolar disorder History of CVA (ER note) Plan/Recommendation Monitoring Supportive treatment Telemetry Vitamin B12 Folic acid TSH FT4 IV antibiotics More recommendation per clinical course Prognosis: Poor This medical document was created using an electronic medical record system with [employer] dictation system. Although this document has been carefully reviewed, there may still be some phonetic and typographical errors. These areas are purely typographical due to imperfections of the software programs, and do not reflect any compromise in the patient's medical care. Plan discussed with: Other PEDRO MIMS MD Mar 23, 2025 20:56
[2025-03-24] VITALS (15 sets, daily range): BP systolic 138–147; BP diastolic 59–104; PULSE 82–95; RESP 17–18; TEMP 98.2–98.9; O2SAT 96–100
--- NOTE | 2025-03-24 10:46 | DVHPN2 ---
Subjective Patient denies any symptoms. Continues to present with intermittent confusion. Reviewed: Care Plan, H&P, Labs, Medications, Previous Orders, Radiology, Other (Consultants) Changes from previous H/P or p: No Changes General: Per HPI Objective Vitals Vital Signs Date Time Temp Pulse Resp B/P (MAP) Pulse Ox O2 Delivery O2 Flow Rate FiO2 03/24/25 09:50 147/77 03/24/25 09:49 95 03/24/25 08:55 98.3 18 100 98.3 03/24/25 08:00 Room Air* 0 21 Intake/Output Intake and Output 03/24/25 07:00 Intake Total 2150 ml Output Total 300 ml Balance 1850 ml Intake Oral 850 ml IV Total 1300 ml Output Urine Total 300 ml # Voids 5 # Bowel Movements 4 General Appearance: Alert, Cooperative, Other (Oriented x 2) HEENT: Atraumatic, PERRLA Lungs: Clear to auscultation, Normal air movement, Other (Mechanical ventilation) Cardiovascular: Regular rate Abdomen: Normal bowel sounds Skin: Dry, Intact Psych/Mental Status: Mental status NL, Mood NL Medications Current Medications Medications Dose Ordered Sig/Niesha Route Start Time Stop Time Status Last Admin Dose Admin Vancomycin HCl 200 ml @ 200 mls/hr Q12HR IV 03/15/25 22:00 UNV Ondansetron HCl 4 mg Q4HP PRN IV 03/15/25 17:15 03/21/25 22:30 4 MG Acetaminophen 650 mg Q6HP PRN PO 03/15/25 17:15 03/21/25 22:32 650 MG Nitroglycerin 0.4 mg Q5MINP PRN SL 03/15/25 17:15 Morphine Sulfate 2 mg Q30M PRN IV 03/15/25 17:15 Diagnostic Test (Pha) 1 strip Q6HR 03/15/25 18:00 03/24/25 05:27 1 STRIP Insulin Human Regular Q6HR SC 03/15/25 18:00 03/24/25 05:24 3 UNITS Dextrose 50 ml UD PRN IV 03/15/25 17:15 Atorvastatin Calcium 20 mg HS NG 03/15/25 22:00 03/23/25 20:16 20 MG Folic Acid 1 mg DAILY PO 03/16/25 10:00 03/24/25 09:49 1 MG Enoxaparin Sodium 40 mg DAILY SC 03/18/25 10:00 03/24/25 09:48 40 MG Albuterol 2.5 mg Q3HPRN PRN NEB 03/18/25 08:45 03/18/25 23:43 2.5 MG Albuterol 2.5 mg Q6HWA [facility] 03/18/25 12:00 03/24/25 07:09 2.5 MG Ipratropium [place] 0.5 mg Q3HPRN PRN NEB 03/18/25 08:45 03/18/25 23:43 0.5 MG Ipratropium [place] 0.5 mg Q6HWA [facility] 03/18/25 12:00 03/24/25 07:10 0.5 MG Sodium Chloride 1,000 ml @ 100 mls/hr Q10H IV 03/18/25 10:30 03/24/25 05:31 100 MLS/HR Ceftriaxone Sodium 50 ml @ 100 mls/hr DAILY@09 IV 03/19/25 09:00 03/24/25 09:48 100 MLS/HR Hydroxyzine Pamoate 50 mg Q6HP PRN PO 03/20/25 13:45 Metoprolol Tartrate 25 mg BID PO 03/20/25 22:00 03/24/25 09:49 25 MG Fluoxetine HCl 40 mg DAILY PO 03/21/25 10:00 03/24/25 09:49 40 MG Losartan Potassium 50 mg DAILY PO 03/21/25 10:00 03/24/25 09:50 50 MG Hydralazine HCl 10 mg Q6HP PRN IV 03/21/25 08:30 03/21/25 22:31 10 MG Temazepam 15 mg HSPRN PRN PO 03/22/25 17:00 03/23/25 20:14 15 MG Thiamine HCl 100 mg DAILY IV 03/23/25 10:00 03/24/25 09:48 100 MG Haloperidol 2 mg BID PO 03/23/25 22:00 03/23/25 20:16 2 MG Laboratory Results Laboratory Tests 03/21/25 04:50 Urinalysis Test 03/15/25 14:29 03/17/25 11:40 Urine Mucus Few (None Seen) Urine Color Colorless (Yellow) Urine Clarity Clear (Clear) Urine pH 5.5 (5.0-9.0) Urine Specific [place] 1.007 (1.001-1.035) Urine Protein 1+ (Negative) H Urine Ketones Negative (Negative) Urine Blood 1+ /uL (Negative) H Urine Nitrite Negative (Negative) Urine Bilirubin Negative (Negative) Urine Urobilinogen Normal mg/dL (Negative) Urine Leukocyte Esterase Negative /uL (Negative) Urine RBC 8 /hpf (0 - 3) Urine Microscopic WBC 4 /HPF (0-3) H Urine Squamous Epithelial Cells Few /hpf (<5) Urine Bacteria Few /hpf (None Seen) H Urine Hyaline Casts Few /lpf (0 - 2) Urine Yeast (Budding) Few /hpf (None Seen) Urine Creatinine 13.71 mg/dL (30.0-125.0) L Urine Protein/Creatinine Ratio 4.00 Urine Sodium 144 mmol/L (40-220) Urine Glucose 3+ mg/dL (Normal) H Urine Total Protein 54.9 mg/dL (1-14) H Microbiology Microbiology Date/Time Source Procedure Growth Status 03/16/25 02:59 Nose MRSA Screen - Final Complete 03/15/25 14:29 Urine - [place] Urine Culture - Final Complete 03/15/25 14:27 Blood Blood Culture - Final NO GROWTH AFTER 5 DAYS OF INCUBATION. Complete 03/15/25 13:25 Sputum Gram Stain - Final Complete 03/15/25 13:25 Respiratory Culture - Final Staphylococcus aureus Complete Labs and/or images reviewed: Labs reviewed by me, Image(s) reviewed by me Assessment/Plan Assessment/Plan Impression: -metabolic encephalopathy probably secondary to prescribed medications -? Over medication to prescribed meds -schizophrenia -acute respiratory failure with mechanical ventilation -cirrhosis -acute kidney injury, vasomotor nephropathy -history of CVA Plan: Events: -Psychiatry recommendations reviewed -continue current antipsychotics depressants -continue metoprolol, and losartan -bronchodilators -bedside sitter -nephrology consultation: Recommendations reviewed -PUD, DVT prophylaxis -discussed case with patient's caregiver/cousin. Apparently patient has paranoid delusions at home. My assessment reveals no suicidal ideation or thoughts of self-harm. Plans for discharge once outpatient psychiatry can be established. Total time spent with patient discussing and formulating plan of care: 35 minutes. This medical document was created using an electronic medical record system with [employer] dictation system. Although this document has been carefully reviewed, there may still be some phonetic and typographical errors. These areas are purely typographical due to imperfections of the software programs, and do not reflect any compromise in the patient's medical care. Plan discussed with: Patient, Other (RN) My Orders Orders - ALEXANDR ANDERSON NP Procedure Category Date Status Time * Clothing Supervisor CONS 03/23/25 Transmitted Consult Date of Service: Mar 24, 2025 Billing Provider: ALEXANDR ANDERSON NP Common Visit Codes: [id number] INP/OBS CARE(HIGH) ALEXANDR ANDERSON NP Mar 24, 2025 10:46
--- NOTE | 2025-03-24 21:59 | DVHPN2 ---
Progress Note - Dictate Date Seen: Mar 24, 2025 Has the PT tested + for MRSA If YES, has PT been informed?: No Medical Necessity Reason Pt with a Central, PICC or Fol: Yes The following are medically ne: Jean Catheter Reason for jean catheter: Strict I&O Subjective Patient seen and examined at bedside. Breathing comfortably on room air Overnight events reviewed. The patient is a 59-year-old gentleman with history of bipolar disorder who presented with altered mental status, was intubated for airway protection. vital signs Vital Sign Date Time Temp Pulse Resp B/P (MAP) Pulse Ox O2 Delivery O2 Flow Rate FiO2 03/24/25 21:57 89 142/104 03/24/25 21:00 98.9 18 98 98.9 03/24/25 12:58 Room Air 0.0 03/24/25 12:58 21 Total Intake and Output 03/23/25 03/23/25 03/24/25 15:00 23:00 07:00 Intake Total 300 ml 400 ml 1450 ml Output Total 300 ml Balance 300 ml 400 ml 1150 ml medications Current Medications Medications Dose Ordered Sig/Niesha Route Start Time Stop Time Status Last Admin Dose Admin Vancomycin HCl 200 ml @ 200 mls/hr Q12HR IV 03/15/25 22:00 UNV Ondansetron HCl 4 mg Q4HP PRN IV 03/15/25 17:15 03/21/25 22:30 4 MG Acetaminophen 650 mg Q6HP PRN PO 03/15/25 17:15 03/21/25 22:32 650 MG Nitroglycerin 0.4 mg Q5MINP PRN SL 03/15/25 17:15 Morphine Sulfate 2 mg Q30M PRN IV 03/15/25 17:15 Diagnostic Test (Pha) 1 strip Q6HR 03/15/25 18:00 03/24/25 16:35 1 STRIP Insulin Human Regular Q6HR SC 03/15/25 18:00 03/24/25 16:40 6 UNITS Dextrose 50 ml UD PRN IV 03/15/25 17:15 Atorvastatin Calcium 20 mg HS NG 03/15/25 22:00 03/24/25 21:56 20 MG Folic Acid 1 mg DAILY PO 03/16/25 10:00 03/24/25 09:49 1 MG Enoxaparin Sodium 40 mg DAILY SC 03/18/25 10:00 03/24/25 09:48 40 MG Albuterol 2.5 mg Q3HPRN PRN NEB 03/18/25 08:45 03/18/25 23:43 2.5 MG Albuterol 2.5 mg Q6HWA [facility] 03/18/25 12:00 03/24/25 12:49 2.5 MG Ipratropium [place] 0.5 mg Q3HPRN PRN NEB 03/18/25 08:45 03/18/25 23:43 0.5 MG Ipratropium [place] 0.5 mg Q6HWA [facility] 03/18/25 12:00 03/24/25 12:49 0.5 MG Sodium Chloride 1,000 ml @ 100 mls/hr Q10H IV 03/18/25 10:30 03/24/25 05:31 100 MLS/HR Ceftriaxone Sodium 50 ml @ 100 mls/hr DAILY@09 IV 03/19/25 09:00 03/24/25 09:48 100 MLS/HR Hydroxyzine Pamoate 50 mg Q6HP PRN PO 03/20/25 13:45 Metoprolol Tartrate 25 mg BID PO 03/20/25 22:00 03/24/25 21:57 25 MG Fluoxetine HCl 40 mg DAILY PO 03/21/25 10:00 03/24/25 09:49 40 MG Losartan Potassium 50 mg DAILY PO 03/21/25 10:00 03/24/25 09:50 50 MG Hydralazine HCl 10 mg Q6HP PRN IV 03/21/25 08:30 03/21/25 22:31 10 MG Temazepam 15 mg HSPRN PRN PO 03/22/25 17:00 03/23/25 20:14 15 MG Thiamine HCl 100 mg DAILY IV 03/23/25 10:00 03/24/25 09:48 100 MG Haloperidol 2 mg BID PO 03/23/25 22:00 03/24/25 21:57 2 MG objective Gen.: Patient lying in bed in no apparent distress. On room air. Head: Normocephalic, atraumatic. Eyes: EOMI/PERRLA. Ears: Normal hearing. Normal anatomy. Neck/trachea: Trachea midline, supple. Nose: Normal external anatomy. Mouth: Moist mucous membranes. Chest: Decreased air entry bilaterally. No wheezing or rhonchi. Cardiovascular: Positive S1, positive S2. Regular rate and rhythm. Abdomen: Positive bowel sounds in all 4 quadrants. Soft, non-tender, non- distended. : Deferred. Rectal: Deferred. Skin: Warm, dry. Intact. Extremities: 2+ radial pulses bilaterally. No lower extremity edema. Neuro: Awake, alert, oriented x2. No gross motor or sensory deficits. Cranial nerves II through XII intact. Gait not assessed. laboratory and microbiology Laboratory Tests 03/21/25 04:50 Test 03/21/25 04:50 Range/Units Serum Glucose 141 H 74-106 mg/dL Assessment/Plan Impression: Acute hypoxemic respiratory failure Acute metabolic encephalopathy Cirrhosis Acute kidney injury Cerebrovascular accident Events: Patient seen at bedside. Remains on room air, breathing comfortably No distress. Sitter at bedside. Head of bed elevation Aspiration precautions Puree diet Brain MRI revealed no acute abnormalities Neuro recommendations appreciated On Haldol Blood pressure control Accu-Cheks, ISS. Wound care Bronchodilators PRN Continue antibiotics Incentive spirometry Continue bronchodilators Lovenox for DVT prophylaxis Disposition per hospitalist. Labs and imaging studies reviewed Plan: S/p extubation on 03/19/25 Supplemental oxygen PRN Titrate to keep O2 sats above 90%. Continue supportive care/bronchodilators Antibiotics Monitor renal function Monitor electrolytes. Supplement as necessary. Monitor ins and outs. GI and DVT prophylaxis Prognosis: Guarded given patient's multiple co-morbidities. Rest of plan per hospitalist and other consultants. Thank you, CHANTEL Bruce, for allowing me to participate in this patient's care. Further recommendations will depend on the patient's clinical course. Please do not hesitate to contact me if you have any questions or concerns. This medical document was created using an electronic medical record system with [employer] dictation system. Although these documentations are being carefully reviewed, there may still be some phonetic and typographical changes. The errors are purely typographical, due to imperfection on the software program, and do not reflect any compromise in the patient's medical care. Dietary Evaluation Review Comments: 1) TF Glucerna 1.2 Steven @ 70ml/hr x 24 hr (goal). Start @ 20ml/hr, increase 10ml/hr Q4H until goal rate is reached. TF at goal volume provides 100% energy & protein needs - 2016 kcal, 93 gm protein, 1352 ml free water 2) Water flush 170ml Q6H if allowed 3) TPN if NPO>7 days 4) Vit C 200mg daily, zinc sulfate 220mg BID x 10 days, J Carlos 1 pk BID, MVI w/ minerals 1 tab daily 5) Monitor I/O, weight trend, lab values and skin integrity Expected Outcomes/Goals: To meet >75% estimated needs Fu 2-3 days Plan discussed with: Patient, Other (CHRIS Solomon) CHELY CHARLES MD Mar 24, 2025 21:59
[2025-03-25] VITALS (9 sets, daily range): BP systolic 135–164; BP diastolic 77–98; PULSE 77–98; RESP 16–18; TEMP 98.6–99.4; O2SAT 96–100
--- NOTE | 2025-03-25 11:10 | DVHDS2 ---
Discharge Summary Date of Admission March 15, 2025 at 17:11 Date of Discharge: Mar 25, 2025 Admitting Diagnosis Metabolic encephalopathy Labs/Diagnostic Data: Laboratory Results Test 03/25/25 05:18 03/21/25 04:50 03/19/25 10:09 03/19/25 08:21 POC Glucose 158 mg/dl (70-106) White Blood Count 10.4 10^3/uL (4.4-10.8) Red Blood Count 4.48 10^6/uL (4.5-5.90) Hemoglobin 13.0 g/dL (13.5-17.5) Hematocrit 38.6 % (41.0-53.0) Mean Corpuscular Volume 86.1 fL (80.0-100.0) Mean Corpuscular Hemoglobin 29.0 pg (28.0-32.0) Mean Corpuscular Hemoglobin Concent 33.7 g/dL (32.0-36.0) Red Cell Distribution Width 14.1 % (11.8-14.3) Platelet Count 617 10^3/uL (140-450) Mean Platelet Volume 7.1 fL (6.9-10.8) Neutrophils (%) (Auto) 83.4 % (37.0-80.0) Lymphocytes (%) (Auto) 8.6 % (10.0-50.0) Monocytes (%) (Auto) 6.9 % (0.0-12.0) Eosinophils (%) (Auto) 0.5 % (0.0-7.0) Basophils (%) (Auto) 0.6 % (0.0-2.0) Neutrophils # (Auto) 8.6 10 ^3/uL (1.6-8.6) Lymphocytes # (Auto) 0.9 10 ^3/uL (0.4-5.4) Monocytes # (Auto) 0.7 10 ^3/uL (0-1.3) Eosinophils # (Auto) 0.1 10 ^3/uL (0-0.8) Basophils # (Auto) 0.1 10 ^3/uL (0-0.2) Nucleated Red Blood Cells 0.1 % Sodium Level 142 mmol/L (136-145) Potassium Level 3.9 mmol/L (3.5-5.1) Chloride Level 111 mmol/L (98-107) Carbon Dioxide Level 17 mmol/L (20-31) Anion Gap 14 (5-15) Blood Urea Nitrogen 22 mg/dL (9-23) Creatinine 1.29 mg/dL (0.700-1.30) Glomerular Filtration Rate Calc 63 mL/min (>90) BUN/Creatinine Ratio 17.1 (10.0-20.0) Serum Glucose 141 mg/dL (74-106) Calcium Level 9.7 mg/dL (8.7-10.4) Blood Gas Specimen Type Arterial Blood Gas Sample Site Right radial Blood Gas Patient Temperature 37.0 Arterial Blood Date Drawn [id number] Arterial Blood pH 7.335 (7.350-7.450) Arterial Blood Partial Pressure CO2 32.1 mmHg (35.0-48.0) Arterial Blood Partial Pressure O2 81.4 mmHg (83.0-108.0) Arterial Blood HCO3 16.7 mmol/L (21.0-28.0) Arterial Blood Oxygen Saturation 94.8 % (94.0-98.0) Arterial Blood Base Excess -8.1 mmol/L (-2.0-3.0) Arterial Blood Oxyhemoglobin 94.3 % (94.0-98.0) Arterial Blood Carboxyhemoglobin 0.3 % (0.5-1.5) Arterial Blood Methemoglobin 0.2 % (0.0-1.5) Carmelo Test Yes Blood Gas Total Hemoglobin 11.90 g/dL (13.5-17.5) Blood Gas Liter Flow 10.00 Blood Gas Modality Cool aerosol FiO2 % 40.0 Vitamin D 25-Hydroxy 44 ng/mL (.) 25-Hydroxy Vitamin D2 <1.0 ng/mL (.) 25-Hydroxy Vitamin D3 44 ng/mL (.) Test 03/19/25 06:02 03/19/25 04:41 03/17/25 11:40 03/17/25 10:54 Blood Gas Set Respiration Rate 16.0 Blood Gas Tidal Volume 450.0 Blood Gas PEEP or CPAP 5.0 Folic Acid > 48.00 ng/mL (>5.38) Thyroid Stimulating Hormone (TSH) 1.64 uIU/mL (0.55-4.78) Urine Color Colorless (Yellow) Urine Clarity Clear (Clear) Urine pH 5.5 (5.0-9.0) Urine Specific [place] 1.007 (1.001-1.035) Urine Protein 1+ (Negative) Urine Ketones Negative (Negative) Urine Blood 1+ /uL (Negative) Urine Nitrite Negative (Negative) Urine Bilirubin Negative (Negative) Urine Urobilinogen Normal mg/dL (Negative) Urine Leukocyte Esterase Negative /uL (Negative) Urine RBC 8 /hpf (0 - 3) Urine Microscopic WBC 4 /HPF (0-3) Urine Squamous Epithelial Cells Few /hpf (<5) Urine Bacteria Few /hpf (None Seen) Urine Hyaline Casts Few /lpf (0 - 2) Urine Yeast (Budding) Few /hpf (None Seen) Urine Creatinine 13.71 mg/dL (30.0-125.0) Urine Protein/Creatinine Ratio 4.00 Urine Sodium 144 mmol/L (40-220) Urine Glucose 3+ mg/dL (Normal) Urine Total Protein 54.9 mg/dL (1-14) B-Type Natriuretic Peptide 23.51 pg/mL (0-100) Parathyroid Hormone (Intact) 78.1 pg/mL (18.4-80.1) Test 03/17/25 08:48 03/16/25 04:56 03/15/25 15:23 03/15/25 14:29 Phosphorus Level 3.8 mg/dL (2.4-5.1) Magnesium Level 1.7 mg/dL (1.6-2.6) Total Bilirubin 0.2 mg/dL (0.2-1.0) Aspartate Amino Transferase (AST) 47 U/L (13-40) Alanine Aminotransferase (ALT) 24 U/L (7-40) Alkaline Phosphatase 103 U/L (46-116) Total Protein 6.5 g/dL (5.7-8.2) Albumin 3.7 g/dL (3.2-4.8) Random Vancomycin Level 12.4 ug/mL (5-10) Troponin I High Sensitivity 4 ng/L (</=54) Urine Mucus Few (None Seen) Urine Opiates Screen Neg (NEGATIVE) Urine Fentanyl Screen Neg (NEGATIVE) Urine Barbiturates Screen Neg (NEGATIVE) Urine Phencyclidine Screen Neg (NEGATIVE) Urine Amphetamines Screen Neg (NEGATIVE) Urine Benzodiazepines Screen Pos (NEGATIVE) Urine Cocaine Screen Neg (NEGATIVE) Urine Cannabinoids Screen Neg (NEGATIVE) Test 03/15/25 14:27 03/15/25 13:16 Differential Total Cells Counted 100.0 (100) Neutrophils % (Manual) 86 (37.0-80.0) Band Neutrophils % (Manual) 6 Lymphocytes % (Manual) 3 (10.0-50.0) Monocytes % (Manual) 5 (0-12) Eosinophils % (Manual) 0 (0-7) Basophils % (Manual) 0 (0.0-2.0) Metamyelocytes % (manual) 0 Myelocytes % (Manual) 0 Promyelocytes % (Manual) 0 Blast Cells % (Manual) 0 Reactive Lymphocytes 0 Platelet Estimate Adequate Anisocytosis (manual) Slight Erythrocyte Sedimentation Rate 18 mm/hr (0-20) Prothrombin Time 10.3 sec (9.3-11.8) Prothrombin Time INR 0.97 (0.9-1.15) Activated Partial Thromboplast Time 30.4 SEC (24.5-34.5) Hemoglobin A1c 5.6 % A1C (<5.7) Lactic Acid Level 1.7 mmol/L (0.4-2.0) Ammonia < 10 umol/L (11-32) C-Reactive Protein High Sensitivity 2.32 mg/dL (<1.0) Plasma/Serum Blood Alcohol < 3.0 mg/dL (<10) Hepatitis A IgM Antibody Negative Hepatitis B Surface Antigen Negative (Negative) Hepatitis B Core IgM Antibody Negative (Negative) Hepatitis C Antibody Negative (Negative) Blood Gas Critical Value Read Back Yes Blood Gas Notified Whom Dr. kuhn Blood Gas Notified Time [id number] Blood Gas Notified By Zack rossi rrt Other Laboratory Tests 03/21/25 04:50 Brief Hx & Hospital Course: History of Present Illness Aaron Del Angel is a 59-year-old male with past medical history of diabetes, cirrhosis, and right BKA who presents to the ED with altered level of consciousness. Per family reports patient last known well time at 2:00 p.m. yesterday. Unable to obtain more information as patient is currently intubated on the vent on sedation and pressor. Called phone number listed on file Saundra (mother) He lives with the mother per report. Patient was taking insulin and did not take his last night insulin. He was at [facility] last week because he did not take his meds for 3 days. Mom reports he has schizophrenia and bipolar disease on prozac. on Metop started by [facility] takes total of 13 pills. Course of hospitalization: Patient was intubated, placed on empiric antibiotic therapy, bronchodilators. Patient was weaned off mechanical ventilation. After being extubated, patient was started on consistent carbohydrate diet, with continuation of regular insulin sliding scale. Patient's blood sugars were controlled. Patient had cessation of all prescribed antipsychotics, antidepressants. Patient did have signs of audiovisual hallucinations after being awakened, for which psychiatry consultation was placed. Recommendations were reviewed. Patient is now questionably back to his baseline status according to his paperhanger assistant/cousin Saundra. He denies having any suicidal ideation or thoughts of self-harm or harm to others. Patient will be discharged home and is instructed to follow up with his psychiatrist as soon as he is discharged from the hospital. Patient was started on Prozac and temazepam while in the hospital. He is instructed to continue these medications at home, for which she already has a prescription for. All questions were answered to the patient and caregiver. Physical examination General: Alert and Oriented x3. No acute distress. Well-nourished. Eyes: EOMI. Anicteric. HENT: Moist mucous membranes. Lungs: Clear to auscultation bilaterally. No accessory muscle use. Cardiovascular: Regular rate and rhythm. No murmur. No JVD. Abdomen: Soft, non-tender and non-distended. No palpable masses. Extremities: No edema. Non-tender. Skin: No rashes or lesions. Warm. Neurologic: No focal neurological deficits. CN II-XII grossly intact, but not individually tested. Psychiatric: Cooperative. Appropriate mood and affect. Total time spent with patient discussing and formulating plan of care: 35 minutes. This medical document was created using an electronic medical record system with [employer] dictation system. Although this document has been carefully reviewed, there may still be some phonetic and typographical errors. These areas are purely typographical due to imperfections of the software programs, and do not reflect any compromise in the patient's medical care. Consults/Reason for consult Pulmonology: respiratory failure Psychiatry: Psychosis Condition at Discharge: Poor Final Diagnosis/Problems List Toxic metabolic encephalopathy Secondary Diagnosis: -metabolic encephalopathy probably secondary to prescribed medications -? Over medication to prescribed meds -schizophrenia -acute respiratory failure with mechanical ventilation -cirrhosis -acute kidney injury, vasomotor nephropathy -history of CVA Discharge Disposition: Home Discharge Instruct/Medications Diet: Consistent carbohydrate, Cardiac 2g Na,low cholest Activity: No Restrictions, As Tolerated Follow Up/Referral: Follow up with psychiatrist Follow up with PCP in 1-2 weeks Medications: Continue all home medications 36 Discharge Statement: "Patient was advised to return to the ER or call 911 if any headaches, dizziness, shortness of breath, chest pain, abdominal pain, bleeding, fevers, or worsening of medical condition. Patient was counseled about treatment plan, medications, possible side effects, patientverbalized understanding. All questions were answered to the best of my ability. This discharge took greater then 30 minutes in planning, reviewing documentation, counseling the patient, and discussing with other team members." ASSESSMENT ASSESSMENT Assessment Toxic metabolic encephalopathy Date of Service: Mar 25, 2025 Billing Provider: ALEXANDR ANDERSON NP Common Visit Codes: 78693-HDR/OBS DISCH DAY >30min ALEXANDR ANDERSON NP Mar 25, 2025 11:10
--- NOTE | 2025-03-25 14:52 | DVHPN2 ---
Progress Note - Dictate Date Seen: Mar 25, 2025 Has the PT tested + for MRSA If YES, has PT been informed?: No Medical Necessity Reason Pt with a Central, PICC or Fol: Yes The following are medically ne: Jean Catheter Reason for jean catheter: Strict I&O vital signs Vital Sign Date Time Temp Pulse Resp B/P (MAP) Pulse Ox O2 Delivery O2 Flow Rate FiO2 03/25/25 12:46 99.3 79 16 155/80 (105) 99 99.3 03/25/25 08:00 Room Air* 0 21 Total Intake and Output 03/24/25 03/24/25 03/25/25 15:00 23:00 07:00 Intake Total 650 ml 600 ml Balance 650 ml 600 ml medications Current Medications Medications Dose Ordered Sig/Niesha Route Start Time Stop Time Status Last Admin Dose Admin Vancomycin HCl 200 ml @ 200 mls/hr Q12HR IV 03/15/25 22:00 UNV Ondansetron HCl 4 mg Q4HP PRN IV 03/15/25 17:15 03/21/25 22:30 4 MG Acetaminophen 650 mg Q6HP PRN PO 03/15/25 17:15 03/21/25 22:32 650 MG Nitroglycerin 0.4 mg Q5MINP PRN SL 03/15/25 17:15 Morphine Sulfate 2 mg Q30M PRN IV 03/15/25 17:15 Diagnostic Test (Pha) 1 strip Q6HR 03/15/25 18:00 03/25/25 12:27 1 STRIP Insulin Human Regular Q6HR SC 03/15/25 18:00 03/25/25 12:26 3 UNITS Dextrose 50 ml UD PRN IV 03/15/25 17:15 Atorvastatin Calcium 20 mg HS NG 03/15/25 22:00 03/24/25 21:56 20 MG Folic Acid 1 mg DAILY PO 03/16/25 10:00 03/25/25 10:08 1 MG Enoxaparin Sodium 40 mg DAILY SC 03/18/25 10:00 03/25/25 10:09 40 MG Albuterol 2.5 mg Q3HPRN PRN NEB 03/18/25 08:45 03/18/25 23:43 2.5 MG Albuterol 2.5 mg Q6HWA NEB 03/18/25 12:00 03/24/25 12:49 2.5 MG Ipratropium [place] 0.5 mg Q3HPRN PRN NEB 03/18/25 08:45 03/18/25 23:43 0.5 MG Ipratropium [place] 0.5 mg Q6HWA NEB 03/18/25 12:00 03/24/25 12:49 0.5 MG Sodium Chloride 1,000 ml @ 100 mls/hr Q10H IV 03/18/25 10:30 03/24/25 05:31 100 MLS/HR Ceftriaxone Sodium 50 ml @ 100 mls/hr DAILY@09 IV 03/19/25 09:00 03/25/25 10:09 100 MLS/HR Hydroxyzine [place] 50 mg Q6HP PRN PO 03/20/25 13:45 Metoprolol Tartrate 25 mg BID PO 03/20/25 22:00 03/25/25 10:08 25 MG Fluoxetine HCl 40 mg DAILY PO 03/21/25 10:00 03/25/25 10:08 20 MG Losartan Potassium 50 mg DAILY PO 03/21/25 10:00 03/25/25 10:08 50 MG Hydralazine HCl 10 mg Q6HP PRN IV 03/21/25 08:30 03/21/25 22:31 10 MG Temazepam 15 mg HSPRN PRN PO 03/22/25 17:00 03/23/25 20:14 15 MG Thiamine HCl 100 mg DAILY IV 03/23/25 10:00 03/25/25 10:09 100 MG Haloperidol 2 mg BID PO 03/23/25 22:00 03/25/25 10:09 2 MG laboratory and microbiology Laboratory Tests 03/21/25 04:50 Test 03/21/25 04:50 Range/Units Serum Glucose 141 H 74-106 mg/dL Assessment/Plan Impression Acute hypoxemic respiratory failure Altered mental status Acute kidney injury Liver cirrhosis Neutropenia Atelectasis Events Low oxygen requirements On room air No acute events Labs and imaging studies reviewed Management Supplemental oxygen as needed Titrate to maintain sats 90% or above Incentive spirometry Aspiration precautions Swallow evaluation Antibiotics Bronchodilators Monitor renal function Monitor electrolytes Supplement as needed Okay to discharge from pulmonary standpoint DVT prophylaxis Dietary Evaluation Review Comments: 1) TF Glucerna 1.2 Steven @ 70ml/hr x 24 hr (goal). Start @ 20ml/hr, increase 10ml/hr Q4H until goal rate is reached. TF at goal volume provides 100% energy & protein needs - 2016 kcal, 93 gm protein, 1352 ml free water 2) Water flush 170ml Q6H if allowed 3) TPN if NPO>7 days 4) Vit C 200mg daily, zinc sulfate 220mg BID x 10 days, J Carlos 1 pk BID, MVI w/ minerals 1 tab daily 5) Monitor I/O, weight trend, lab values and skin integrity Expected Outcomes/Goals: To meet >75% estimated needs Fu 2-3 days Plan discussed with: Other (Rn) EVELINE BAUMANN MD Mar 25, 2025 14:52
== END 2025-03-25 20:30 | disposition home or self-care (01) | DRG 52 ==
LOC: EDBD 11:14 → ER 11:23 → OVERFLOW 17:11 → ICU CENTRL 23:22 → TELE-WESTW 03-21 11:33 → WEST WING 03-22 12:22
PROVIDERS: ADMIT Nurse Practitioner Acute Care; ATTEND Nurse Practitioner Acute Care
PROC: 5A1945Z Respiratory Ventilation, 24-96 Consecutive Hours (ICD-10-PCS; principal; 2025-03-15)
PROC: 0BH17EZ Insertion of Endotracheal Airway into Trachea, Via Natural or Artificial Opening (ICD-10-PCS; 2025-03-15)
PROC: 05HF33Z Insertion of Infusion Device into Left Cephalic Vein, Percutaneous Approach (ICD-10-PCS; 2025-03-18)
PROC: B54NZZA Ultrasonography of Left Upper Extremity Veins, Guidance (ICD-10-PCS; 2025-03-18)
DX: G92.8 Other toxic encephalopathy (principal); J96.01 Acute respiratory failure with hypoxia; N17.0 Acute kidney failure with tubular necrosis; I95.9 Hypotension, unspecified; E11.22 Type 2 diabetes mellitus with diabetic chronic kidney disease; E11.51 Type 2 diabetes mellitus with diabetic peripheral angiopathy without gangrene; D70.9 Neutropenia, unspecified; G93.1 Anoxic brain damage, not elsewhere classified; I13.10 Hypertensive heart and chronic kidney disease without heart failure, with stage 1 through stage 4 chronic kidney disease, or unspecified chronic kidney disease; K74.60 Unspecified cirrhosis of liver; F20.9 Schizophrenia, unspecified; F31.9 Bipolar disorder, unspecified; N18.9 Chronic kidney disease, unspecified; E87.70 Fluid overload, unspecified; J96.02 Acute respiratory failure with hypercapnia; E78.5 Hyperlipidemia, unspecified; J98.11 Atelectasis; Z91.148 Patient's other noncompliance with medication regimen for other reason; Z89.511 Acquired absence of right leg below knee; Z86.73 Personal history of transient ischemic attack (TIA), and cerebral infarction without residual deficits; Z79.4 Long term (current) use of insulin; T50.915A Adverse effect of multiple unspecified drugs, medicaments and biological substances, initial encounter; Y92.89 Other specified places as the place of occurrence of the external cause
CPT/HCPCS: 31500; 36415; 36600; 70450; 70551; 71045; 74176; 80048; 80053; 80074; 80202; 80307; 80320; 81001; 82140; 82306; 82565; 82570; 82746; 82805; 82962; 83036; 83605; 83735; 83880; 83970; 84100; 84156; 84300; 84425; 84443; 84484; 85007; 85025; 85027; 85610; 85652; 85730; 86141; 86850; 86900; 86901; 87040; 87070; 87077; 87081; 87086; 87186; 87205; 93005; 93971; 94002; 94003; 94640; 96365; 96375; 99291; G0378; J0330; J1100; J1815; J2405; J2543; J3480

== ENCOUNTER 2025-03-30 18:05 | Inpatient (IN) | payer MEDICAID ==
[~2025-03-30] VITALS: Ht 152.4 cm; Wt 67.8 kg
[~2025-03-30 18:05] MED LIST: AML5T PO; AMLO1TAB23 PO; APIX5TAB PO; ATOR20TA; ATOR20TA50 PO; BACL10TA PO; BACL20TA PO; ERTU5TAB PO; FLUO-470 PO; FLUO1TAB14 PO; FOLI-119 PO; GABA-1251 PO; GABA300T4 PO; HYDR50TA32 PO; HYDR50TA69 PO; INSLANTI SC; INSU100I52 IJ; INSU100I52 SC; LOSA-534 PO; MET50T PO; METF-371 PO; METO-158 PO; OLAN2.5T38 PO; QUET100T47 PO; TEMA30CA PO
[2025-03-30] MEDS: SODIUM CHLORIDE 0.9% 1,000 ML IVB ONE (18:34)
--- NOTE | 2025-03-30 18:55 | ED.PDOC ---
Altered Mental Status HPI Comments 59 y/o obese M, with a history of ELVIS, CVA, DM, Liver Cirrhosis, schizophrenia, and noncompliance, is BIBA for 2x day history of ALOC. Per EMS report, family called after endorsing on patient becoming progressively more unresponsive for the past 2x days. Previous similar incident with accompanying ED visit and ho spital admission was reported to have taking place around Feb, 2025. Vitals were noted to have been stable and within normal limits, with exception of an initial systolic pressure in the 60's, cap node of 9, and a blood glucose of 27. Patient was given 1x D10 and normal saline via IV 18G access to his left AC, with blood pressure and glucose levels improving to 90's and 140-150's, respectively. Patient remained unresponsive en route until arrival at ED, responding only occasionally. Patient has no further reported associated symptoms along with any known recent prior ailments, sick contact, injuries, or overdose on his prescription medications. Further history is limited, due to patient's current condition and absence of family caretakers. Chief Complaint: ALOC Time Seen by MD: 18:00 Reviewed Notes: Nurses Notes, Barrel Stave Inspector Notes, Medications, Allergies Allergies: Coded Allergies: NO KNOWN ALLERGIES (Unverified , 03/15/25) Home Meds Reported Medications Gabapentin (Once-Daily) (Gabapentin) 300 Mg Tab, 400 MG PO, TAB 03/15/25 Insulin Lispro (Insulin Lispro) 100 Unit/Ml Inj, 15 UNIT IJ, INJ 03/15/25 Insulin Lispro (Insulin Lispro) 100 Unit/Ml Inj, 100 UNIT IJ, INJ 03/15/25 Insulin Glargine (Lantus) 100 Unit/Ml Inj, 40 UNIT SC, INJ 03/15/25 Metoprolol Tartrate (Metoprolol Tartrate) 50 Mg Tab, 50 MG PO for 30 Days, MG 03/15/25 Hydroxyzine Hcl (Hydroxyzine Hcl) 50 Mg Tab, 50 MG PO for 30 Days, MG 03/15/25 Apixaban Base (ELIQUIS) 5 Mg Tab, 5 MG PO BID, TAB 03/15/25 Ertugliflozin l-Pyroglutamic A (Steglatro) 5 Mg Tab, 5 MG PO, TAB 03/15/25 Amlodipine Besylate (NORVASC TABLET) 5 Mg Tb, 1 TAB PO DAILY, #90 TAB 3 Refills 03/15/25 Baclofen (Baclofen) 10 Mg Tab, 0 PO Q8HR for 30 Days, MG 03/15/25 Quetiapine Fumerate (QUETIAPINE FUMARATE) 100 Mg Tab, 100 MG PO for 30 Days, MG 03/15/25 Folic Acid (Folic Acid) 1 Mg Tab, 1 MG PO DAILY for 30 Days, MG 03/15/25 Temazepam (Temazepam) 30 Mg Cap, 30 MG PO, CAP 03/15/25 Atorvastatin Calcium (ATORVASTATIN CALCIUM) 20 Mg Tab, 20 MG PO DAILY, TAB 03/15/25 Losartan Potassium (Losartan Potassium) 50 Mg Tab, 50 MG PO DAILY for 30 Days, MG 03/15/25 Fluoxetine HCl (Pmdd) (Fluoxetine HCl) 20 Mg Tab, 20 MG PO, TAB 03/15/25 Metformin Hydrochloride (Metformin Hcl) 850 Mg Tab, 850 MG PO for 30 Days, MG 03/15/25 Atorvastatin Calcium (Lipitor) 20 Mg Tab 03/15/25 Folic Acid (Folic Acid) 1 Mg Tab, 1 TAB PO DAILY 03/15/25 Information Source: Emergency Med Personnel Mode of Arrival: EMS Severity: Moderate, Unresponsive Timing: Days Duration: Since onset Prehospital treatment: 12 Lead EKG, Accucheck, Facilities Engineering Manager, IVF, Treatment (D10), Other (18G LAC) Past Medical History PAST MEDICAL HISTORY: CVA, DM, Liver (Cirrhosis ), Schizophrenia Past Medical History (Other): ELVIS Surgical History: Unknown Family History Family History: Unknown Social History Smoker: Unknown Alcohol: Unknown Drugs: Unknown Lives In: Home All Other Systems: Reviewed and Negative (As per HPI) Physical Exam General Appearance: No Apparent Distress, Obese HEENT: Normal ENT Inspection, Pharynx Normal, TMs Normal Neck: Full Range of Motion, Non-Tender, Normal, Normal Inspection Respiratory: Chest Non-Tender, Lungs Clear, No Accessory Muscle Use, No Respiratory Distress, Normal Breath Sounds Cardiovascular: No Edema, No JVD, No Murmur, No Gallop, Normal Peripheral Pulses, Regular Rate/Rhythm Breast Exam: Deferred Gastrointestinal: No Organomegaly, Non Tender, No Pulsatile Mass, Normal Bowel Sounds, Soft Genitalia: Deferred Pelvic: Deferred Rectal: Deferred Extremities: No calf tenderness, Normal capillary refill, Normal inspection, Normal range of motion, Non-tender, No pedal edema Musculoskeletal : Apperance: Normal Neurologic: telephone maintenance mechanic II-XII nml as Tested, No Motor Deficits, No Sensory Deficits, Other (somnolent but arousable to loud voice and painful stimulus) Cerebellar Function: Normal Reflexes: Normal Skin: Dry, Normal Color, Warm Lymphatic: No Adenopathy EKG EKG : Pulse Rate (adult): 85 [place]: Normal Cardiac Rhythm: NSR Block: None Hypertrophy: None ST: Normal Was a procedure done? Was a procedure done?: Yes Sedation Sedation?: No Central Line Recorder of insertion practice: Head Of Music Occupation of territory sales consultant: Attending Physician Indication: Hypotension Room prepared for procedure: Yes Head Of Music performed hand hygien: Yes Maximal sterile barrier precau: Mask/Eye shield, Sterile gown, Cap, Sterlie gloves, Large sterlie drape Skin Preparation: Chlorhexidine gluconate Skin preparation completely dr: Yes Insertion site: Right, Infraclavicular Central line catheter type: Aey-cdeprgse-zzo dialysis Number of lumens: 3 Central line exchanged over a: No Antiseptic ointment applied to: Yes Post Assessment: Chest X-Ray, Proper placement, No Pneumothorax Informed consent obtained: Yes Risks/benefits/alt described: Yes Intubation Indication: Respiratory Insufficiency, Airway Protection Prep: Preoxygenation Pretreated with: Sedation Medicated with: Atracurium Intubation Approach: Orotracheal Intubation size: cm (8-0) Informed consent obtained: Yes Risks/benefits/alt described: Yes Differential Diagnosis (ALOC) Differential Diagnosis: Dehydration, Hypoglycemia, Encephalopathy, Sepsis, Hypoxemia, CVA, Drug Overdose X-Ray, Labs, Meds, VS Vital Signs Date Time Temp Pulse Resp B/P (MAP) Pulse Ox O2 Delivery O2 Flow Rate FiO2 03/30/25 22:45 92 18 100/47 (64) 100 03/30/25 22:30 88 17 98/51 (67) 100 03/30/25 22:20 105/49 03/30/25 22:20 105/49 03/30/25 22:15 93 14 105/49 (67) 100 03/30/25 22:00 104/49 03/30/25 22:00 104/49 03/30/25 22:00 92 18 104/44 (64) 100 03/30/25 21:45 92 18 105/48 (67) 100 03/30/25 21:30 93 19 108/51 (70) 100 03/30/25 21:15 96 20 112/52 (72) 100 03/30/25 21:00 94 19 117/51 (73) 100 03/30/25 21:00 117/51 03/30/25 21:00 117/51 03/30/25 20:45 92 18 109/47 (67) 100 03/30/25 20:30 95 18 89/42 (58) 100 03/30/25 20:15 81/43 03/30/25 20:15 94 18 89/42 (58) 100 03/30/25 20:10 90/42 03/30/25 20:05 90/42 03/30/25 20:00 90/42 03/30/25 20:00 90/42 03/30/25 20:00 94 19 90/42 (58) 100 03/30/25 19:40 91/45 03/30/25 19:35 92 16 100 100 03/30/25 19:33 91/45 03/30/25 19:20 87 14 91/45 (60) 98 03/30/25 19:18 91/45 03/30/25 19:15 89 12 92/41 (58) 99 03/30/25 19:00 82 12 81/40 (54) 99 03/30/25 18:55 85 03/30/25 18:45 83 12 82/37 (52) 99 03/30/25 18:30 Room Air* 0 21 03/30/25 18:30 97.8 80 12 80/40 (53) 99 97.8 03/30/25 18:10 96.8 87 16 92/50 (64) 100 96.8 03/30/25 18:06 85 Lab Test 03/30/25 21:30 03/30/25 21:04 03/30/25 20:38 03/30/25 20:08 Range/Units Urine Color Brown H Yellow Urine Clarity Ex.turbid Clear Urine pH 6.0 5.0-9.0 Urine Specific [place] 1.014 1.001-1.035 Urine Protein 2+ H Negative Urine Ketones Negative Negative Urine Blood 2+ H Negative /uL Urine Nitrite Negative Negative Urine Bilirubin Negative Negative Urine Urobilinogen Normal Negative mg/dL Urine Leukocyte Esterase 3+ Negative /uL Urine RBC 165 0 - 3 /hpf Urine WBC Clumps Present None Seen /hpf Urine Microscopic WBC 3402 H 0-3 /HPF Urine Squamous Epithelial Cells None seen <5 /hpf Urine Bacteria Few H None Seen /hpf Urine Yeast (Budding) Loaded None Seen /hpf Urine Glucose Normal Normal mg/dL Urine Opiates Screen Neg NEGATIVE Urine Fentanyl Screen Pos NEGATIVE Urine Barbiturates Screen Neg NEGATIVE Urine Phencyclidine Screen Neg NEGATIVE Urine Amphetamines Screen Neg NEGATIVE Urine Benzodiazepines Screen Pos NEGATIVE Urine Cocaine Screen Neg NEGATIVE Urine Cannabinoids Screen Neg NEGATIVE Blood Gas Specimen Type Arterial Blood Gas Sample Site Left radial Blood Gas Patient Temperature 37.0 Arterial Blood Date Drawn [id number] Arterial Blood pH 7.102 *L 7.350-7.450 Arterial Blood Partial Pressure CO2 31.5 L 35.0-48.0 mmHg Arterial Blood Partial Pressure O2 251.9 H 83.0-108.0 mmHg Arterial Blood HCO3 9.6 L 21.0-28.0 mmol/L Arterial Blood Oxygen Saturation 99.3 H 94.0-98.0 % Arterial Blood Base Excess -18.8 L -2.0-3.0 mmol/L Arterial Blood Oxyhemoglobin 98.0 94.0-98.0 % Arterial Blood Carboxyhemoglobin 0.7 0.5-1.5 % Arterial Blood Methemoglobin 0.6 0.0-1.5 % Carmelo Test Modified Blood Gas Total Hemoglobin 12.20 L 13.5-17.5 g/dL Blood Gas Set Respiration Rate 16.0 Blood Gas Modality Vent - ac FiO2 % 100.0 Blood Gas Tidal Volume 450.0 Blood Gas PEEP or CPAP 5.0 Blood Gas Critical Value Read Back Yes Blood Gas Notified Whom sailaja Pandey md Blood Gas Notified Time [id number] Blood Gas Notified By Dayami jay i. Lactic Acid Level 3.2 *H 0.4-2.0 mmol/L Troponin I High Sensitivity 19 </=54 ng/L Test 03/30/25 19:03 03/30/25 18:38 Range/Units POC Glucose 78 70-106 mg/dl White Blood Count 14.8 H 4.4-10.8 10^3/uL Red Blood Count 3.08 L 4.5-5.90 10^6/uL Hemoglobin 8.9 L 13.5-17.5 g/dL Hematocrit 26.9 L 41.0-53.0 % Mean Corpuscular Volume 87.1 80.0-100.0 fL Mean Corpuscular Hemoglobin 29.0 28.0-32.0 pg Mean Corpuscular Hemoglobin Concent 33.3 32.0-36.0 g/dL Red Cell Distribution Width 14.9 H 11.8-14.3 % Platelet Count 521 H 140-450 10^3/uL Mean Platelet Volume 7.7 6.9-10.8 fL Neutrophils (%) (Auto) 92.1 H 37.0-80.0 % Lymphocytes (%) (Auto) 2.6 L 10.0-50.0 % Monocytes (%) (Auto) 5.1 0.0-12.0 % Eosinophils (%) (Auto) 0.0 0.0-7.0 % Basophils (%) (Auto) 0.2 0.0-2.0 % Neutrophils # (Auto) 13.6 H 1.6-8.6 10 ^3/uL Lymphocytes # (Auto) 0.4 0.4-5.4 10 ^3/uL Monocytes # (Auto) 0.8 0-1.3 10 ^3/uL Eosinophils # (Auto) 0 0-0.8 10 ^3/uL Basophils # (Auto) 0 0-0.2 10 ^3/uL Nucleated Red Blood Cells 0.1 % Sodium Level 140 136-145 mmol/L Potassium Level 5.1 3.5-5.1 mmol/L Chloride Level 109 H 98-107 mmol/L Carbon Dioxide Level < 10 *L 20-31 mmol/L Anion Gap 21.63872 H 5-15 Blood Urea Nitrogen 80 *H 9-23 mg/dL Creatinine 10.65 *H 0.700-1.30 mg/dL Glomerular Filtration Rate Calc 5 >90 mL/min BUN/Creatinine Ratio 7.5 L 10.0-20.0 Serum Glucose 104 74-106 mg/dL Lactic Acid Level 4.5 *H 0.4-2.0 mmol/L Calcium Level 7.7 L 8.7-10.4 mg/dL Magnesium Level 1.7 1.6-2.6 mg/dL Total Bilirubin < 0.2 L 0.2-1.0 mg/dL Aspartate Amino Transferase (AST) 53 H <34 U/L Alanine Aminotransferase (ALT) 41 H 7-40 U/L Alkaline Phosphatase 72 46-116 U/L Ammonia < 10 L 11-32 umol/L Troponin I High Sensitivity 17 </=54 ng/L Total Protein 4.4 L 5.7-8.2 g/dL Albumin 2.6 L 3.2-4.8 g/dL Salicylates Level < 3.0 -30 mg/dL Acetaminophen Level < 2.0 L 10.0-20.0 UG/ML Plasma/Serum Blood Alcohol < 3.0 <10 mg/dL Current Medications Medications (Trade) Dose Ordered Sig/Niesha Route Start Time Stop Time Status Last Admin Sodium Chloride 1,000 ml @ 1,000 mls/hr Q1H ONCE IVB 03/30/25 18:30 03/30/25 19:29 DC 03/30/25 18:34 Etomidate 10 mg ONCE ONCE IV 03/30/25 19:15 03/30/25 19:16 DC 03/30/25 19:18 Rocuronium [place] 80 mg ONCE ONCE IV 03/30/25 19:15 03/30/25 19:16 DC 03/30/25 19:18 Norepinephrine Bitartrate 250 ml @ 3.75 mls/hr Q24H IV 03/30/25 19:15 03/30/25 19:33 Dextrose 50 ml ONCE ONCE IV 03/30/25 19:15 03/30/25 19:16 DC 03/30/25 19:18 Propofol 100 ml @ 2.04 mls/hr Q24H IV 03/30/25 19:45 03/30/25 19:40 Time of 1ST Reevaluation: 18:30 Reevaluation 1ST: Unchanged Patient Education/Counseling: Diagnosis, Treatment, Need For Follow Up Family Education/Counseling: No Family Present Sepsis Sepsis Reasesment Focused Exam Orders: Laboratory Tests 03/30/25 18:38: Lactic Acid Level 4.5 03/30/25 20:38: Lactic Acid Level 3.2 Departure 1 Departure Time of Disposition: 22:57 Impression: Primary Impression: Acute renal failure Additional Impressions: Respiratory failure UTI (urinary tract infection) Toxic encephalopathy Disposition: ADMITTED INPATIENT Admit to: ICU Condition: Critical Comments Altered Mental Status with Sepsis and Acute Renal Failure Chief Complaint: Altered mental status History of Present Illness: Patient is a 59-year-old male with a history of type 2 diabetes, liver cirrhosis, and schizophrenia who presented to the ED via EMS with decreased mental status. Per the patient's mother, he has a history of urinary tract infection but has been noncompliant with his prescribed antibiotics. The patient has also been noncompliant with his diabetes medications. On arrival, the patient was noted to be very somnolent, only arousing to painful stimuli. Initial vital signs were significant for hypotension with BP 85/41 and hypoxemia with oxygen saturation in the 80s. The patient exhibited snoring respirations indicating upper airway compromise. Due to his respiratory status and persistent hypotension despite IV fluid resuscitation, the decision was made to intubate the patient and place a central line in the right subclavian vein for hemodynamic monitoring and medication administration. Review of Systems: Constitutional: Altered mental status, somnolence. Respiratory: Snoring respirations, hypoxemia. Cardiovascular: Hypotension refractory to initial fluid resuscitation. Genitourinary: History of urinary tract infection per mother. Neurological: Decreased level of consciousness, responsive only to painful stimuli. All other systems: Unable to assess due to patient's mental status. Medications: Per history: Diabetes medications (specific agents unknown) - noncompliant Antibiotics for UTI (specific agent unknown) - noncompliant Other home medications unknown due to patient's mental status and limited collateral information Allergies: No known allergies reported by family Unable to confirm with patient due to mental status Past Medical History: Type 2 diabetes mellitus Liver cirrhosis Schizophrenia Recent urinary tract infection Social History: Lives with mother (per history) Medication noncompliance noted Other social history unknown due to patient's mental status Vital Signs: BP: Initial 85/41 mmHg, remained low despite fluid resuscitation Pulse: Not specified in zipper sewing machine operator Respiratory Rate: Not specified in zipper sewing machine operator Temperature: Not specified in zipper sewing machine operator Oxygen Saturation: In the 80s on room air Physical Exam: General: Somnolent male in acute distress. HEENT: Not detailed in zipper sewing machine operator. Respiratory: Snoring respirations prior to intubation. Cardiovascular: Hypotensive, central line placed in right subclavian vein. Neurological: Decreased level of consciousness, arousing only to painful stimuli. Other systems: Limited examination due to patient's condition. Lab Results: CBC: - WBC: 14.8 (elevated) - Hemoglobin: 9 g/dL - Hematocrit: 27% - Platelets: 521 (elevated) Chemistry: - BUN: 80 mg/dL (elevated) - Creatinine: 10.11 mg/dL (elevated) - Potassium: 5.1 mEq/L (normal) - CO2: <10 mEq/L (low) - Uric acid: 3.2 mg/dL (elevated) Urinalysis: - Leukocytes: 3+ - Blood: 2+ - Protein: 2+ Imaging and Other Relevant Results: No imaging results mentioned in the zipper sewing machine operator Medical Decision Making: Summary Statement: 59-year-old male with history of type 2 diabetes, liver cirrhosis, and schizophrenia presenting with altered mental status, hypotension, and respiratory compromise in the setting of untreated urinary tract infection, now with evidence of sepsis and acute renal failure. Problem List: 1. Sepsis secondary to urinary tract infection/pyelonephritis 2. Acute renal failure 3. Respiratory failure requiring intubation 4. Hypotension requiring central line placement and fluid resuscitation 5. Type 2 diabetes (uncontrolled) 6. Liver cirrhosis 7. Schizophrenia 8. Medication noncompliance Differential Diagnosis: Septic shock from urinary source, hepatic encephalopathy, diabetic ketoacidosis, toxic ingestion, metabolic encephalopathy from renal failure, HEAD OF SALES PROMOTION infection, hypoglycemia, primary neurological event (stroke, seizure), medication overdose. ED Course: Patient presented with altered mental status and was found to be hypotensive and hypoxic. Initial resuscitation included IV fluid boluses. Due to persistent hypotension and respiratory compromise with oxygen desaturation, the patient was intubated for airway protection. A right subclavian central venous catheter was placed for medication administration and hemodynamic monitoring. Laboratory studies revealed leukocytosis, anemia, thrombocytosis, acute renal failure, and metabolic acidosis. Urinalysis was consistent with urinary tract infection. The patient was diagnosed with sepsis secondary to pyelonephritis with acute renal failure. Treatment included IV fluid resuscitation and broad- spectrum antibiotics (Zosyn). The decision was made to admit the patient for continued management of sepsis, pyelonephritis, and acute renal failure. Assessment and Plan: 1. Sepsis secondary to urinary tract infection/pyelonephritis: - Continue broad-spectrum antibiotic coverage with IV Zosyn - Blood cultures pending - Urine culture pending - Monitor hemodynamic parameters closely - Consider vasopressor support if hypotension persists despite adequate fluid resuscitation 2. Acute renal failure: - Likely multifactorial: pre-renal component from hypotension and intrinsic renal injury from infection - Continue IV fluid resuscitation as tolerated - Monitor urine output - Renal function panel every 6 hours - Nephrology consultation - Medication dose adjustments as appropriate for renal function 3. Respiratory failure: - Continue mechanical ventilation with lung-protective strategy - Daily spontaneous breathing trials when appropriate - Ventilator management per ICU protocol 4. Type 2 diabetes: - Hold oral hypoglycemic agents - Insulin sliding scale with blood glucose monitoring every 4 hours - Endocrinology consultation for management recommendations 5. Liver cirrhosis: - Monitor liver function tests - Avoid hepatotoxic medications - Monitor for signs of hepatic encephalopathy 6. Schizophrenia: - Psychiatry consultation for medication recommendations once patient is stabilized - Obtain complete medication history from outpatient providers 7. Disposition: - Admit to Medical ICU - Critical care consultation - Continue close monitoring of vital signs, mental status, and laboratory values Additional Notes: Patient was intubated and central line placed during ED course due to hemodynamic instability and respiratory compromise. Billing Information: ICD-10: A41.9 - Sepsis, unspecified organism ICD-10: N10 - Acute pyelonephritis ICD-10: N17.9 - Acute kidney failure, unspecified ICD-10: N39.0 - Urinary tract infection, site not specified ICD-10: E11.9 - Type 2 diabetes mellitus without complications ICD-10: K74.60 - Unspecified cirrhosis of liver ICD-10: F20.9 - Schizophrenia, unspecified Critical Care Note Critical Care Time?: Yes (35 min-critical care time only) Critical care comment: Total critical care time: Approximately 36 minutes Due to a high probability of clinically significant, life threatening deterioration, the patient required my highest level of preparedness to intervene emergently and I personally spent this critical care time directly and personally managing the patient. This critical care time included obtaining a history; examining the patient; pulse oximetry; ordering and review of studies; arranging urgent treatment with development of a management plan; evaluation of patient's response to treatment; frequent reassessment; and, discussions with other providers. This critical care time was performed to assess and manage the high probability of imminent, life-threatening deterioration that could result in multi-organ failure. It was exclusive of separately billable procedures and treating other patients. Stability Stability form required: No Heart Score Heart Score: Heart Score Response (Comments) Value History N/A 0 EKG N/A 0 Age N/A 0 Risk Factors N/A 0 Troponin N/A 0 Total 0 I personally scribed for CLARY PANDEY MD ([email or web address]) on 03/30/25 at 18:55. Electronically submitted by Dimitris Mahmood ([email or web address]). CLARY PANDEY MD Mar 30, 2025 18:55
[2025-03-30 19:01] LABS: Hematocrit 26.9 % (41.0-53.0); Hemoglobin 8.9 g/dL (13.5-17.5); Mean Corpuscular Hemoglobin 29.0 pg (28.0-32.0); Mean Corpuscular Volume 87.1 fL (80.0-100.0); Nucleated Red Blood Cells % 0.1 %
[2025-03-30] MEDS: DEXTROSE 50% SYRINGE 50 ML IV ONE (19:12)
[2025-03-30 19:16] LABS: Alkaline Phosphatase 72 U/L (46-116); Anion Gap 21.00001 (5-15); BUN/Creatinine Ratio 7.5 (10.0-20.0); Glucose 104 mg/dL (74-106); Magnesium 1.7 mg/dL (1.6-2.6); Potassium 5.1 mmol/L (3.5-5.1); Sodium 140 mmol/L (136-145)
[2025-03-30 19:18] LABS: Alanine Aminotransferase 41 U/L (7-40); Bilirubin, Total < 0.2 mg/dL (0.2-1.0); Calcium 7.7 mg/dL (8.7-10.4); Chloride 109 mmol/L (98-107); Total Protein 4.4 g/dL (5.7-8.2)
[2025-03-30] MEDS: ROCURONIUM 10MG/ML 10ML VIAL IV ONE (19:18)
[2025-03-30] MEDS: ETOMIDATE (2MG/ML) 20ML VIAL IV ONE (19:18)
[2025-03-30] MEDS: DEXTROSE (50%) 50ML SYRG IV ONE (19:18)
[2025-03-30 19:19] LABS: Albumin 2.6 g/dL (3.2-4.8)
[2025-03-30 19:20] LABS: Carbon Dioxide < 10 mmol/L (20-31); Lactic Acid w/Reflex 4.5 mmol/L (0.4-2.0)
[2025-03-30 19:21] LABS: Acetaminophen < 2.0 UG/ML (10.0-20.0); Blood Urea Nitrogen 80 mg/dL (9-23); Salicylate < 3.0 mg/dL (-30)
[2025-03-30] MEDS: NOREPINEPHRINE 8 MG/250ML KIT 250 ML IV SCH (19:33)
[2025-03-30 19:35] VITALS: PULSE 92; RESP 16; O2SAT 100
[2025-03-30] MEDS: PROPOFOL 100 ML IV ONE (19:40)
[2025-03-30] MEDS: PROPOFOL 100 ML IV SCH (19:40)
[2025-03-30] MEDS: SODIUM CHLORIDE 0.9% 1,000 ML IV ONE (19:44)
[2025-03-30 21:09] LABS: Base Excess -18.8 mmol/L (-2.0-3.0)
[2025-03-30 21:35] VITALS: BP 108/51; PULSE 90; RESP 18; O2SAT 100
[2025-03-30 22:06] LABS: Urine Budding Yeast LOADED /hpf (None Seen); Urine Protein, UAD 2+ (Negative); Urine WBC Clumps PRESENT /hpf (None Seen)
[2025-03-30 22:09] LABS: Amphetamine Screen, Urine Neg (NEGATIVE); Barbiturate Scree,Urine Neg (NEGATIVE); Benzodiazephine Screen, Urine Pos (NEGATIVE); Cannabinoid Screen, Urine Neg (NEGATIVE); Cocaine Screen, Urine Neg (NEGATIVE); Opiate Scree,Urine Neg (NEGATIVE); Phencyclidine Screen, Urine Neg (NEGATIVE)
--- NOTE | 2025-03-30 22:40 | DVH ---
CHEST RADIOGRAPH Indication: sob Technique: Single frontal view of the chest was obtained Comparison: XY CHEST PORTABLE on DOS: 03/18/25, XY CHEST PORTABLE on DOS: 03/17/25, XY CHEST PORTABLE on DOS: 03/16/25 FINDINGS: Lines and Tubes: Endotracheal tube 2.5 cm above the lucrecia. Enteric tube below the left diaphragm in the stomach. Lungs: Bibasilar areas of airspace disease or atelectasis. Pleura: No effusion. No pneumothorax. Cardiomediastinal contours: Unremarkable Bones: No acute osseous abnormality. IMPRESSION: 1. Endotracheal tube 2.5 cm above the lucrecia 2. Enteric tube in the stomach. 3. Bibasilar areas of atelectasis or airspace disease.
--- NOTE | 2025-03-30 22:53 | DVH ---
EXAM: CT HEAD WITHOUT CONTRAST INDICATION: ALOC TECHNIQUE: CT of the head without intravenous contrast. Radiation Dose Information: CT Dose: CTDI volume is 55.44 mGy. Dose-length product is 888.69 mGy*cm The dose indicators for CT are the volume Computed Tomography (CT) Dose Index (CTDIvol) and the Dose Length Product (DLP), and are measured in units of mGy and mGy-cm, respectively. These indicators are not patient dose, but values generated from the CT scanner acquisition factors. The report includes radiation exposure data for exposures received during this examination. COMPARISON: CT HEAD WITHOUT CONTRAST on DOS: 03/15/25 FINDINGS: There is no evidence of acute intracranial hemorrhage, extra-axial collection, mass effect, midline s hift, herniation or hydrocephalus. The ventricles, sulci and cisterns are age appropriate. The paulson-white differentiation is intact. Patchy periventricular and subcortical white matter hypoattenuation is nonspecific but may be related to small vessel ischemic disease. Mucosal thickening of the maxillary and ethmoid sinuses bilaterally and mastoid air cells are clear. The surrounding soft tissues and osseous structures are unremarkable. IMPRESSION: 1. No acute intracranial abnormality.
[2025-03-30 23:00] VITALS: BP 100/47; PULSE 87; RESP 19; O2SAT 100
[2025-03-30] MEDS: SODIUM BICARB 8.4% 50Meq/50ml SYR Vial IV ONE ×2 (23:30→23:43)
[2025-03-31] VITALS (102 sets, daily range): BP systolic 86–145; BP diastolic 24–84; PULSE 47–98; RESP 9–25; TEMP 94.5–98.8; O2SAT 92–100
[2025-03-31] MEDS ORDERED: DEXTROSE (50%) 50ML SYRG IV PRN ×3 (00:45→11:30)
[2025-03-31] MEDS ORDERED: ALBUTEROL SULF 2.5 MG/0.5ML(0.5%) NEB SOLN NEB PRN (00:45)
[2025-03-31] MEDS ORDERED: NITROGLYCERIN 0.4 MG SL TAB SL PRN (00:45)
[2025-03-31] MEDS ORDERED: MORPHINE SULFATE INJ 2 MG/ml SYRG IV PRN (00:45)
[2025-03-31 00:47] LABS: Base Excess -17.3 mmol/L (-2.0-3.0)
--- NOTE | 2025-03-31 00:51 | DVHHP2 ---
History of Present Illness Reason for Visit: Altered mental status History of Present Illness 59-year-old male presents for evaluation of altered mental status. Patient had become progressively more altered over the past couple of days. It was reported patient stopped being compliant with his medications over the past one-week. On arrival patient was emergently intubated for airway protection. Currently intubated and sedated. No family at the bedside to provide further history. Past Medical History Chronic kidney disease, diabetes mellitus, liver cirrhosis, schizophrenia, CVA Past Surgical History Right AKA Family History Unknown Smoke: No ALCOHOL: none Drugs: None Lives: with Family Review of Systems Review of Systems Unable to complete review of systems, patient is sedated and intubated. Allergies: Coded Allergies: NO KNOWN ALLERGIES (Unverified , 03/15/25) Medications Current Medications Medications Dose Ordered Sig/Niesha Route Start Time Stop Time Status Last Admin Dose Admin Norepinephrine Bitartrate 250 ml @ 3.75 mls/hr Q24H IV 03/30/25 19:15 03/30/25 19:33 3.75 MLS/HR Propofol 100 ml @ 2.04 mls/hr Q24H IV 03/30/25 19:45 03/30/25 19:40 2.04 MLS/HR Exam Vital Signs Vital Signs Date Time Temp Pulse Resp B/P (MAP) Pulse Ox O2 Delivery O2 Flow Rate FiO2 03/31/25 00:15 83 12 93/42 (59) 100 03/30/25 19:35 100 03/30/25 18:30 Room Air* 0 03/30/25 18:30 97.8 97.8 Exam Gen: 59-year-old male in no apparent distress Skin: Warm, dry, normal color and texture, no rash. HEENT: Normocephalic atraumatic, mucous membranes moist and pink. Neck: Cervical and supraclavicular nodes normal without enlargement, trachea is midline, thyroid gland is normal without masses. Pulmonary: Diminished breath sounds bilaterally, intubated Cardiac: Regular rate and rhythm. No murmur Abdomen: Soft, nontender, nondistended, bowel sounds present all 4 quadrants, no guarding, no rigidity, no organomegaly. Extremities: No cyanosis, clubbing, right AKA Neuro: Sedated Labs/Xrays ORDERING PHYSICIAN: CLARY PANDEY MD PROCEDURE(s): CXRP - CHEST PORTABLE REASON: sob ORDER NUMBER(s): [id number], ACCESSION NUMBER(s): [id number] CHEST RADIOGRAPH Indication: sob Technique: Single frontal view of the chest was obtained Comparison: XY CHEST PORTABLE on DOS: 03/18/25, XY CHEST PORTABLE on DOS: 03/17/25, XY CHEST PORTABLE on DOS: 03/16/25 FINDINGS: Lines and Tubes: Endotracheal tube 2.5 cm above the lucrecia. Enteric tube below the left diaphragm in the stomach. Lungs: Bibasilar areas of airspace disease or atelectasis. Pleura: No effusion. No pneumothorax. Cardiomediastinal contours: Unremarkable Bones: No acute osseous abnormality. IMPRESSION: 1. Endotracheal tube 2.5 cm above the lucrecia 2. Enteric tube in the stomach. 3. Bibasilar areas of atelectasis or airspace disease. RING PHYSICIAN: CLARY PANDEY MD PROCEDURE(s): HWOCT - HEAD WITHOUT CONTRAST REASON: ALOC ORDER NUMBER(s): [id number], ACCESSION NUMBER(s): [id number] EXAM: CT HEAD WITHOUT CONTRAST INDICATION: ALOC TECHNIQUE: CT of the head without intravenous contrast. Radiation Dose Information: CT Dose: CTDI volume is 55.44 mGy. Dose-length product is 888.69 mGy*cm The dose indicators for CT are the volume Computed Tomography (CT) Dose Index (CTDIvol) and the Dose Length Product (DLP), and are measured in units of mGy and mGy-cm, respectively. These indicators are not patient dose, but values generated from the CT scanner acquisition factors. The report includes radiation exposure data for exposures received during this examination. COMPARISON: CT HEAD WITHOUT CONTRAST on DOS: 03/15/25 FINDINGS: There is no evidence of acute intracranial hemorrhage, extra-axial collection, mass effect, midline shift, herniation or hydrocephalus. The ventricles, sulci and cisterns are age appropriate. The paulson-white differentiation is intact. Patchy periventricular and subcortical white matter hypoattenuation is nonspecific but may be related to small vessel ischemic disease. Mucosal thickening of the maxillary and ethmoid sinuses bilaterally and mastoid air cells are clear. The surrounding soft tissues and osseous structures are unremarkable. IMPRESSION: 1. No acute intracranial abnormality. Labs Test 03/31/25 00:20 03/30/25 21:30 03/30/25 21:04 03/30/25 20:38 Range/Units Urine Color Brown H Yellow Urine Clarity Ex.turbid Clear Urine pH 6.0 5.0-9.0 Urine Specific [place] 1.014 1.001-1.035 Urine Protein 2+ H Negative Urine Ketones Negative Negative Urine Blood 2+ H Negative /uL Urine Nitrite Negative Negative Urine Bilirubin Negative Negative Urine Urobilinogen Normal Negative mg/dL Urine Leukocyte Esterase 3+ Negative /uL Urine RBC 165 0 - 3 /hpf Urine WBC Clumps Present None Seen /hpf Urine Microscopic WBC 3402 H 0-3 /HPF Urine Squamous Epithelial Cells None seen <5 /hpf Urine Bacteria Few H None Seen /hpf Urine Yeast (Budding) Loaded None Seen /hpf Urine Glucose Normal Normal mg/dL Urine Opiates Screen Neg NEGATIVE Urine Fentanyl Screen Pos NEGATIVE Urine Barbiturates Screen Neg NEGATIVE Urine Phencyclidine Screen Neg NEGATIVE Urine Amphetamines Screen Neg NEGATIVE Urine Benzodiazepines Screen Pos NEGATIVE Urine Cocaine Screen Neg NEGATIVE Urine Cannabinoids Screen Neg NEGATIVE Blood Gas Specimen Type Arterial Blood Gas Sample Site Left radial Blood Gas Patient Temperature 37.0 Arterial Blood Date Drawn [id number] Arterial Blood pH 7.102 *L 7.350-7.450 Arterial Blood Partial Pressure CO2 31.5 L 35.0-48.0 mmHg Arterial Blood Partial Pressure O2 251.9 H 83.0-108.0 mmHg Arterial Blood HCO3 9.6 L 21.0-28.0 mmol/L Arterial Blood Oxygen Saturation 99.3 H 94.0-98.0 % Arterial Blood Base Excess -18.8 L -2.0-3.0 mmol/L Arterial Blood Oxyhemoglobin 98.0 94.0-98.0 % Arterial Blood Carboxyhemoglobin 0.7 0.5-1.5 % Arterial Blood Methemoglobin 0.6 0.0-1.5 % Carmelo Test Modified Blood Gas Total Hemoglobin 12.20 L 13.5-17.5 g/dL Blood Gas Set Respiration Rate 16.0 Blood Gas Modality Vent - ac FiO2 % 100.0 Blood Gas Tidal Volume 450.0 Blood Gas PEEP or CPAP 5.0 Blood Gas Critical Value Read Back Yes Blood Gas Notified Whom sailaja Pandey md Blood Gas Notified Time [id number] Blood Gas Notified By Dayami jay i. Lactic Acid Level 3.2 *H 0.4-2.0 mmol/L Test 03/30/25 19:03 03/30/25 18:38 Range/Units POC Glucose 78 70-106 mg/dl White Blood Count 14.8 H 4.4-10.8 10^3/uL Red Blood Count 3.08 L 4.5-5.90 10^6/uL Hemoglobin 8.9 L 13.5-17.5 g/dL Hematocrit 26.9 L 41.0-53.0 % Mean Corpuscular Volume 87.1 80.0-100.0 fL Mean Corpuscular Hemoglobin 29.0 28.0-32.0 pg Mean Corpuscular Hemoglobin Concent 33.3 32.0-36.0 g/dL Red Cell Distribution Width 14.9 H 11.8-14.3 % Platelet Count 521 H 140-450 10^3/uL Mean Platelet Volume 7.7 6.9-10.8 fL Neutrophils (%) (Auto) 92.1 H 37.0-80.0 % Lymphocytes (%) (Auto) 2.6 L 10.0-50.0 % Monocytes (%) (Auto) 5.1 0.0-12.0 % Eosinophils (%) (Auto) 0.0 0.0-7.0 % Basophils (%) (Auto) 0.2 0.0-2.0 % Neutrophils # (Auto) 13.6 H 1.6-8.6 10 ^3/uL Lymphocytes # (Auto) 0.4 0.4-5.4 10 ^3/uL Monocytes # (Auto) 0.8 0-1.3 10 ^3/uL Eosinophils # (Auto) 0 0-0.8 10 ^3/uL Basophils # (Auto) 0 0-0.2 10 ^3/uL Nucleated Red Blood Cells 0.1 % Sodium Level 140 136-145 mmol/L Potassium Level 5.1 3.5-5.1 mmol/L Chloride Level 109 H 98-107 mmol/L Carbon Dioxide Level < 10 *L 20-31 mmol/L Anion Gap 21.15275 H 5-15 Blood Urea Nitrogen 80 *H 9-23 mg/dL Creatinine 10.65 *H 0.700-1.30 mg/dL Glomerular Filtration Rate Calc 5 >90 mL/min BUN/Creatinine Ratio 7.5 L 10.0-20.0 Serum Glucose 104 74-106 mg/dL Calcium Level 7.7 L 8.7-10.4 mg/dL Magnesium Level 1.7 1.6-2.6 mg/dL Total Bilirubin < 0.2 L 0.2-1.0 mg/dL Aspartate Amino Transferase (AST) 53 H <34 U/L Alanine Aminotransferase (ALT) 41 H 7-40 U/L Alkaline Phosphatase 72 46-116 U/L Ammonia < 10 L 11-32 umol/L Total Protein 4.4 L 5.7-8.2 g/dL Albumin 2.6 L 3.2-4.8 g/dL Salicylates Level < 3.0 -30 mg/dL Acetaminophen Level < 2.0 L 10.0-20.0 UG/ML Plasma/Serum Blood Alcohol < 3.0 <10 mg/dL Assessment/Plan Assessment/Plan Assessment Septic shock Multi organ failure Metabolic encephalopathy Urinary tract infection Uncontrolled diabetes mellitus Noncompliant Plan Admit the patient to ICU to the hospitalist Nephrology consultation Rocephin Continue treatment per orders Total critical care time excluding procedures performed is 50 minutes. Plan discussed with: Patient My Orders Orders - SVETA SPARKS Procedure Category Date Status Time *Dr. [facility] CONS 03/31/25 Transmitted -[place] 00:41 Creatine Kinase LAB 03/31/25 Transmitted 00:41 Sod Chl 0.45% PHA 03/31/25 Transmitted (Sodi... W/Sodium 00:45 Glucose Blood PHA 03/31/25 Transmitted (Accu-Chek Comfort 04:00 Mild Sliding Scale PHA 03/31/25 Transmitted 04:00 Dextrose 50% Syringe PHA 03/31/25 Transmitted 00:45 Admit ADMIT 03/31/25 Transmitted 00:41 Ondansetron Hcl PHA 03/31/25 Transmitted (Zofran) 00:45 Complete Blood Count LAB 04/01/25 Verified 04:00 Comprehensive LAB 04/01/25 Verified Metabolic Panel 04:00 Npo (Nothing By DIET 03/31/25 Transmitted Mouth) Diet Breakfast Condition: Unstable [facility] 03/31/25 Transmitted 00:41 Bedrest With Bathroom [facility] 03/31/25 Transmitted Privileg 00:41 Nitroglycerin [facility] 03/31/25 Transmitted Sublingual (Ntrostat 00:45 Morphine Sulfate PHA 03/31/25 Transmitted Injection 00:45 Stat Ekg For Chest [facility] 03/31/25 Transmitted Pain 00:41 Notify Md Of Changes [facility] 03/31/25 Transmitted From Base 00:41 Interlocking And Signal Mechanic For [facility] 03/31/25 Transmitted 24 Hours 00:41 Emergency Dysrhythmia [facility] 03/31/25 Transmitted Protocol 00:41 Rhythm Strips Once [facility] 03/31/25 Transmitted Every Shift 00:41 Oxygen By Nasal 03/31/25 Transmitted Cannula 00:41 Ceftriaxone Ivpb [facility] 03/31/25 Transmitted Rocephin 09:00 Ceftriaxone Ivpb [facility] 03/31/25 Transmitted Rocephin 00:45 Albuterol Medneb [facility] 03/31/25 Transmitted (Ventolin Medneb) 00:45 Date of Service: Mar 31, 2025 Billing Provider: SVETA SPARKS Common Visit Codes: [id number] CARE 30-74 MIN SVETA SPARKS Mar 31, 2025 00:51
[2025-03-31] MEDS: SODIUM BICARB 50mEq/50ml Vial 100 ML in SOD CHL 0.45% 1,000 ML IV SCH (01:15)
[2025-03-31] MEDS: cefTRIAXone 1GM/50ML D5W 50 ML IV ONE (01:30)
[2025-03-31 04:28] LABS: Nucleated Red Blood Cells % 0.2 %
[2025-03-31 04:30] LABS: Hematocrit 31.7 % (41.0-53.0); Hemoglobin 10.5 g/dL (13.5-17.5); Mean Corpuscular Hemoglobin 28.6 pg (28.0-32.0); Mean Corpuscular Volume 86.9 fL (80.0-100.0)
[2025-03-31] MEDS: ACCU-CHEK COMFORT CURVE STRIP VI SCH ×2 (04:34→12:25)
[2025-03-31] MEDS: InsuLIN REG 1unit/0.01ml Soln (100units/ml) SC SCH ×2 (04:37→12:00)
[2025-03-31 04:53] LABS: Alkaline Phosphatase 95 U/L (46-116); Anion Gap 24.00001 (5-15); BUN/Creatinine Ratio 7.4 (10.0-20.0); Chloride 104 mmol/L (98-107); Sodium 138 mmol/L (136-145)
[2025-03-31 04:57] LABS: Alanine Aminotransferase 44 U/L (7-40); Glucose 245 mg/dL (74-106); Potassium 5.4 mmol/L (3.5-5.1)
[2025-03-31 04:58] LABS: Albumin 3.0 g/dL (3.2-4.8); Bilirubin, Total < 0.2 mg/dL (0.2-1.0); Calcium 7.1 mg/dL (8.7-10.4); Total Protein 5.1 g/dL (5.7-8.2)
[2025-03-31 04:59] LABS: Blood Urea Nitrogen 80 mg/dL (9-23); Carbon Dioxide < 10 mmol/L (20-31)
[2025-03-31 06:04] LABS: Base Excess -18.3 mmol/L (-2.0-3.0)
[2025-03-31] MEDS ORDERED: SODIUM BICARB 50mEq/50ml Vial 75 ML in D5W 5% 1,000 ML IV SCH (08:00)
[2025-03-31] MEDS: MIDAZOLAM HCL 5 MG/ML-1ML VIAL IV ONE (08:22)
[2025-03-31] MEDS: SODIUM CHLORIDE 0.9% 1,500 ML IV ONE (08:26)
[2025-03-31] MEDS: fentaNYL Drip 2500mCg/250mlNS 250 ML IV SCH (08:31)
[2025-03-31] MEDS: SODIUM BICARB 8.4% 50Meq/50ml SYR Vial IV ONE (09:13)
[2025-03-31] MEDS ORDERED: INSULIN LANTUS (GLARGINE) 1 /0.01ml (100units/ml) SC ONE (09:45)
[2025-03-31] MEDS ORDERED: INSULIN DRIP 100 UNIT/100ML 100 ML IV SCH (09:45)
[2025-03-31 10:12] LABS: Lactic Acid w/Reflex 5.2 mmol/L (0.4-2.0)
[2025-03-31 10:12] LABS: Base Excess -15.2 mmol/L (-2.0-3.0)
[2025-03-31] MEDS: PANTOPRAZOLE 40 MG/10 ML VIAL INJ IV SCH (10:21)
[2025-03-31] MEDS ORDERED: ACCU-CHEK COMFORT CURVE STRIP VI SCH (10:30)
[2025-03-31 10:38] LABS: Chloride 105 mmol/L (98-107); Potassium 5.0 mmol/L (3.5-5.1); Sodium 140 mmol/L (136-145)
[2025-03-31 10:39] LABS: Anion Gap 25.00001 (5-15)
[2025-03-31 10:44] LABS: BUN/Creatinine Ratio 7.8 (10.0-20.0)
[2025-03-31 10:45] LABS: Magnesium 1.6 mg/dL (1.6-2.6)
[2025-03-31 10:58] LABS: Calcium 7.6 mg/dL (8.7-10.4); Glucose 217 mg/dL (74-106)
[2025-03-31 11:01] LABS: Blood Urea Nitrogen 84 mg/dL (9-23); Carbon Dioxide < 10 mmol/L (20-31)
--- NOTE | 2025-03-31 11:01 | DVH ---
INDICATION: ELVIS TECHNIQUE: Multiple real-time sonographic images of the kidneys and bladder were obtained. COMPARISON: None FINDINGS: The right kidney measures 8 cm in length, which is normal in size. There is normal echogen[place] of the right kidney. No hydronephrosis. The left kidney measures 9 cm in length, which is normal in size. There is normal echogenicity of the left kidney. No hydronephrosis. Roach catheter present within the bladder. IMPRESSION: 1. Normal sonographic appearance of the kidneys. No hydronephrosis.
--- NOTE | 2025-03-31 12:10 | DVHPNRES ---
Progress Note Date Seen: Mar 31, 2025 Resident Creating Document: ERICK SILVESTRE Medical Necessity Reason Pt with a Central, PICC or Fol: Yes The following are medically ne: Central Line, Roach Catheter Medical Necessity Reason Patient is currently intubated and information is from the ED NOTES Patient is a 59 y/o obese male with significant medical history that includes ELVIS, CVA, DM, Liver Cirrhosis, schizophrenia, and noncompliance. He was was brought in by the ambulance due to Altered mental status for the past two days. Per the ED notes, When the EMS services arrived, patient's temperature was 94.6. Vitals were noted to have been stable and within normal limits, with exception of an initial systolic pressure in the 60's, and a blood glucose of 27. Patient was given 1x D10 and normal saline via IV 18G access to his left AC, with blood pressure and glucose levels improving to 90's and 140-150's, respectively. Patient remained unresponsive en route until arrival at ED, responding only occasionally. In the ED, he was intubated and mechanically ventilated, central line placed in the right subclavian through which drips were past. He also has an underlying on the right for antibiotics. Patient was initially started on ceftriaxone. We will discontinue that and start him on vancomycin and meropenem per pharmacy. Given the patient's acute kidney failure we will also consult renal team for evaluation. Subjective Review of Systems sedated and intubated Objective vital signs Vital Sign Date Time Temp Pulse Resp B/P (MAP) Pulse Ox O2 Delivery O2 Flow Rate FiO2 03/31/25 10:10 94 20 109/50 (69) 100 30 03/31/25 07:45 95.2 203.4 03/31/25 06:00 Mechanical Ventilator+ 03/30/25 18:30 0 Total Intake and Output 03/30/25 03/30/25 03/31/25 15:00 23:00 07:00 Intake Total 1064.9825 ml 698.7450 ml Output Total 25 ml Balance 1064.9825 ml 673.7450 ml medications Current Medications Medications Dose Ordered Sig/Niesha Route Start Time Stop Time Status Last Admin Dose Admin Norepinephrine Bitartrate 250 ml @ 3.75 mls/hr Q24H IV 03/30/25 19:15 03/31/25 03:27 33.75 MLS/HR Propofol 100 ml @ 2.04 mls/hr Q24H IV 03/30/25 19:45 03/31/25 02:53 20.4 MLS/HR Ondansetron HCl 4 mg Q4HP PRN IV 03/31/25 00:45 Nitroglycerin 0.4 mg Q5MINP PRN SL 03/31/25 00:45 Morphine Sulfate 2 mg Q30M PRN IV 03/31/25 00:45 Ceftriaxone Sodium 50 ml @ 100 mls/hr DAILY@0100 IV 04/01/25 01:00 Albuterol 2.5 mg Q6HPRN PRN NEB 03/31/25 00:45 Pantoprazole Sodium 40 mg DAILY IV 03/31/25 10:00 03/31/25 10:21 40 MG Fentanyl Citrate 250 ml @ 2.5 mls/hr Q24H IV 03/31/25 07:45 03/31/25 08:31 2.5 MLS/HR Sodium Bicarbonate 150 ml/Dextrose 1,150 ml @ 125 mls/hr Q9H12M IV 03/31/25 08:30 Diagnostic Test (Pha) 1 strip IQ4HR 03/31/25 12:00 UNV Insulin Human Regular IQ4HR SC 03/31/25 12:00 UNV Dextrose 50 ml UD PRN IV 03/31/25 11:30 UNV Examination General Appearance: Sedated and intubated; Mechanical intubated, covered in warmer HEENT: Atraumatic, Respiratory: fair air entry bilateral Cardiovascular: Tachycardia, Normal S1, Normal S2, No murmurs, no chest wall tenderness Abdominal: NO distention, Extremities: No clubbing, No cyanosis, No edema, Normal pulses, No tenderness/swelling Skin: No rashes, No breakdown, No significant lesion Neuro: unable to access Psych/Mental Status: Unable to access laboratory and microbiology Laboratory Tests 03/31/25 08:33 03/31/25 04:11 Test 03/31/25 08:33 Range/Units Serum Glucose 217 H 74-106 mg/dL Microbiology Date/Time Source Procedure Growth Status 03/30/25 19:35 Sputum Gram Stain - Final Resulted 03/30/25 19:35 Sputum Respiratory Culture - Preliminary Resulted Problem List/Assessment/Plan Problem List/Assessment/Plan Assessment and plan Neuro: Metabolic encephalopathy Hypoglycemia History of CVA Schizophrenia - CT head: No acute intracranial abnormality. - Treat the underlying problem: infection, hypoglycemia and electrolytes Respiratory: Acute hypoxic respiratory failure Possible pneumonia gram-/gram+ Increased anion gap metabolic acidosis CXR: Bibasilar areas of atelectasis or airspace disease - Intubated and on mechanical ventilation - mechanical ventilation - Bicarb 7 received - Meropenem - Vancomycin Gastrointestinal Liver Cirrhosis Transaminitis Ammonia < 10 - Monitor closely Genitourinary: Acute Kidney failure likely due to VMN Acute kidney injury likely ischemic ATN in the setting of shock Rhabdomyolysis Fluid Renal consult Metabolic/Endocrine Diabetes Mellitus, Hypoglycemia/Hyperglycemia hyperkalemia - replaced electrolytes Infectious Disease Severe sepsis with septic shock Urinary track infection Leukocytosis Lactic acidosis Hypothermia on admission Pending urine and blood culture Antibiotics: Meropenem and vancomycin per pharmacy Fluids D5W Bicarb ( 7 amps total received now) Hematology Normocytic anemia Thrombocytosis likely due to dehydration - fluid - Monitor the labs daily Polysubstance use Fentanyl and benzodiazepine OTHER medical -noncompliance IV access: Central line: right subclavian 03/30/2025 Drips: Fentanyl, propofol and Levophed Antibiotics: Ceftriaxone ( Discontinued 03/31/2025); Vancomycin, meropenem Roach catheter present 03/30/2025 PLAN: fluid: additional 2 liters Goal of care discussed with Nurse Critical care time : 45 minutes No next of kin contact information on file. Case discussed with Dr. Baumann Plan discussed with: Other (Nurse) Date of Service: Mar 31, 2025 Billing Provider: EVELINE BAUMANN MD Common Visit Codes: NOT BILLABLE ERICK SILVESTRE RESIDENT Mar 31, 2025 12:10 EVELINE BAUMANN MD Apr 08, 2025 13:42
[2025-03-31] MEDS: SODIUM BICARB 50mEq/50ml Vial 150 ML in D5W 5% 1,000 ML IV SCH (12:28)
--- NOTE | 2025-03-31 12:31 | ECG ---
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
--- NOTE | 2025-03-31 13:02 | DVHINCON2 ---
Date of service: Mar 31, 2025 Referring Physician tamia Reason for Consultation ELVIS History of Present Illness 59 years old male with past medical history of CVA, diabetes, Chronic kidney disease, liver cirrhosis ??, noncompliance, history of recent Acute kidney injury in previous admission presented with chief complaints of altered mental status per RN bedside patient was found to be altered and hypoglycemic with blood glucose level in 20s on EMS arrival needing IV D50 currently patient is intubated and sedated and is on Levophed drip Patient has a Roach catheter Currently creatinine is 10.8 however on March 21 2025 creatinine was 1.29 baseline Past Medical History Unable to obtain exactly Past Surgical History Unable to obtain Allergies: Coded Allergies: NO KNOWN ALLERGIES (Unverified , 03/15/25) Home Meds Reported Medications Gabapentin (Once-Daily) (Gabapentin) 300 Mg Tab, 400 MG PO, TAB 03/15/25 Insulin Lispro (Insulin Lispro) 100 Unit/Ml Inj, 15 UNIT IJ, INJ 03/15/25 Insulin Lispro (Insulin Lispro) 100 Unit/Ml Inj, 100 UNIT IJ, INJ 03/15/25 Insulin Glargine (Lantus) 100 Unit/Ml Inj, 40 UNIT SC, INJ 03/15/25 Metoprolol Tartrate (Metoprolol Tartrate) 50 Mg Tab, 50 MG PO for 30 Days, MG 03/15/25 Hydroxyzine Hcl (Hydroxyzine Hcl) 50 Mg Tab, 50 MG PO for 30 Days, MG 03/15/25 Apixaban Base (ELIQUIS) 5 Mg Tab, 5 MG PO BID, TAB 03/15/25 Ertugliflozin l-Pyroglutamic A (Steglatro) 5 Mg Tab, 5 MG PO, TAB 03/15/25 Amlodipine Besylate (NORVASC TABLET) 5 Mg Tb, 1 TAB PO DAILY, #90 TAB 3 Refills 03/15/25 Baclofen (Baclofen) 10 Mg Tab, 0 PO Q8HR for 30 Days, MG 03/15/25 Quetiapine Fumerate (QUETIAPINE FUMARATE) 100 Mg Tab, 100 MG PO for 30 Days, MG 03/15/25 Folic Acid (Folic Acid) 1 Mg Tab, 1 MG PO DAILY for 30 Days, MG 03/15/25 Temazepam (Temazepam) 30 Mg Cap, 30 MG PO, CAP 03/15/25 Atorvastatin Calcium (ATORVASTATIN CALCIUM) 20 Mg Tab, 20 MG PO DAILY, TAB 03/15/25 Losartan Potassium (Losartan Potassium) 50 Mg Tab, 50 MG PO DAILY for 30 Days, MG 03/15/25 Fluoxetine HCl (Pmdd) (Fluoxetine HCl) 20 Mg Tab, 20 MG PO, TAB 03/15/25 Metformin Hydrochloride (Metformin Hcl) 850 Mg Tab, 850 MG PO for 30 Days, MG 03/15/25 Atorvastatin Calcium (Lipitor) 20 Mg Tab 03/15/25 Folic Acid (Folic Acid) 1 Mg Tab, 1 TAB PO DAILY 03/15/25 Current Medications Current Medications Medications (Trade) Dose Ordered Sig/Niesha Route PRN Reason Start Time Stop Time Status Last Admin Norepinephrine Bitartrate 250 ml @ 3.75 mls/hr Q24H IV 03/30/25 19:15 03/31/25 03:27 Propofol 100 ml @ 2.04 mls/hr Q24H IV 03/30/25 19:45 03/31/25 02:53 Sodium Bicarbonate 100 ml/Sodium Chloride 1,100 ml @ 80 mls/hr [id number] IV 03/31/25 00:45 03/31/25 07:58 DC 03/31/25 01:15 Diagnostic Test (Pha) (Accu-Chek Comfort Curve T) 1 strip IQ4HR 03/31/25 04:00 03/31/25 10:22 DC 03/31/25 08:21 Insulin Human Regular (InsuLIN R) IQ4HR SC 03/31/25 04:00 03/31/25 10:22 DC 03/31/25 08:22 Dextrose 50 ml UD PRN IV Blood Sugar LESS THAN 60 03/31/25 00:45 03/31/25 10:22 DC Ondansetron HCl (Zofran) 4 mg Q4HP PRN IV NAUSEA / VOMITING 03/31/25 00:45 Nitroglycerin (Ntrostat Sublingual) 0.4 mg Q5MINP PRN SL FOR CHEST PAIN 03/31/25 00:45 Morphine Sulfate 2 mg Q30M PRN IV FOR CHEST PAIN 03/31/25 00:45 Ceftriaxone Sodium 50 ml @ 100 mls/hr DAILY@0100 IV 04/01/25 01:00 Albuterol (Ventolin Medneb) 2.5 mg Q6HPRN PRN NEB SHORTNESS OF BREATH 03/31/25 00:45 Pantoprazole Sodium (Protonix) 40 mg DAILY IV 03/31/25 10:00 03/31/25 10:21 Fentanyl Citrate 250 ml @ 2.5 mls/hr Q24H IV 03/31/25 07:45 03/31/25 08:31 Sodium Bicarbonate 75 ml/ Dextrose 1,075 ml @ 125 mls/hr Q8H36M IV 03/31/25 08:00 03/31/25 08:24 DC Sodium Bicarbonate 150 ml/Dextrose 1,150 ml @ 125 mls/hr Q9H12M IV 03/31/25 08:30 03/31/25 12:28 Insulin Human (Reg)/Sodium Chloride 100 ml @ 0.5 mls/hr Q24H IV 03/31/25 09:45 03/31/25 11:30 DC Dextrose 50 ml UD PRN IV SEE CURRENT ALGORITHM or SCALE 03/31/25 09:45 03/31/25 11:30 DC Diagnostic Test (Pha) (Accu-Chek Comfort Curve T) 1 strip Q90MIN 03/31/25 10:30 03/31/25 11:30 DC Insulin Glargine (Lantus) 15 units DAILY SC 04/01/25 10:00 03/31/25 11:30 DC Diagnostic Test (Pha) (Accu-Chek Comfort Curve T) 1 strip IQ4HR 03/31/25 12:00 03/31/25 12:25 Insulin Human Regular (InsuLIN R) IQ4HR SC 03/31/25 12:00 Dextrose 50 ml UD PRN IV Blood Sugar LESS THAN 60 03/31/25 11:30 Family History: Patient reports no known family medical history. Social History Unknown exactly Review of Systems Unknown exactly H&P Exam Vital Signs/I&O Vital Sign Date Time Temp Pulse Resp B/P (MAP) Pulse Ox O2 Delivery O2 Flow Rate FiO2 03/31/25 10:10 94 20 109/50 (69) 100 30 03/31/25 07:45 95.2 203.4 03/31/25 06:00 Mechanical Ventilator+ 03/30/25 18:30 0 Intake and Output 03/30/25 03/31/25 19:00 07:00 Intake Total 1000 ml 763.7275 ml Output Total 25 ml Balance 1000 ml 738.7275 ml Intake Oral 0 ml IV Total 1000 ml 763.7275 ml Output Urine Total 25 ml Physical Exam General-intubated and sedated HEENT-normocephalic, Respiratory-fair air entry bilateral, [id number] heard, tachy Abdominal-soft, nontender, nondistended Musculoskeletal-no pedal edema, no calf tenderness Genitourinary-deferred Labs/Diagnostic Data Labs/Diagnostic Data Laboratory Tests Test 03/31/25 12:23 03/31/25 10:38 03/31/25 10:07 03/31/25 09:21 Range/Units POC Glucose 105 142 H 70-106 mg/dl Blood Gas Specimen Type Arterial Blood Gas Sample Site Right radial Blood Gas Patient Temperature 37.0 Arterial Blood Date Drawn [id number] Arterial Blood pH 7.200 *L 7.350-7.450 Arterial Blood Partial Pressure CO2 30.3 L 35.0-48.0 mmHg Arterial Blood Partial Pressure O2 82.8 L 83.0-108.0 mmHg Arterial Blood HCO3 11.6 L 21.0-28.0 mmol/L Arterial Blood Oxygen Saturation 94.1 94.0-98.0 % Arterial Blood Base Excess -15.2 L -2.0-3.0 mmol/L Arterial Blood Oxyhemoglobin 93.3 L 94.0-98.0 % Arterial Blood Carboxyhemoglobin 0.2 L 0.5-1.5 % Arterial Blood Methemoglobin 0.6 0.0-1.5 % Carmelo Test Modified Blood Gas Total Hemoglobin 10.30 L 13.5-17.5 g/dL Blood Gas Set Respiration Rate 16.0 Blood Gas Modality Vent - ac FiO2 % 30.0 Blood Gas Tidal Volume 450.0 Blood Gas PEEP or CPAP 5.0 Blood Gas Critical Value Read Back Yes Blood Gas Notified Whom Np. maximo nolan Blood Gas Notified Time [id number] Blood Gas Notified By Rt kamini gamble Lactic Acid Level 5.2 *H 0.4-2.0 mmol/L Test 03/31/25 08:33 03/31/25 08:13 03/31/25 05:52 03/31/25 04:11 Range/Units Sodium Level 140 138 136-145 mmol/L Potassium Level 5.0 5.4 H 3.5-5.1 mmol/L Chloride Level 105 104 98-107 mmol/L Carbon Dioxide Level < 10 *L < 10 *L 20-31 mmol/L Anion Gap 25.37578 H 24.22117 H 5-15 Blood Urea Nitrogen 84 *H 80 *H 9-23 mg/dL Creatinine 10.82 *H 10.79 *H 0.700-1.30 mg/dL Glomerular Filtration Rate Calc 5 5 >90 mL/min BUN/Creatinine Ratio 7.8 L 7.4 L 10.0-20.0 Serum Glucose 217 H 245 #H 74-106 mg/dL Serum Osmolality 324 H 278-298 mOsm/kg Calcium Level 7.6 L 7.1 L 8.7-10.4 mg/dL Phosphorus Level 8.5 H 2.4-5.1 mg/dL Magnesium Level 1.6 1.6-2.6 mg/dL Beta-Hydroxybutyric Acid 2.606 H < 0.4 mmol/L POC Glucose 192 H 70-106 mg/dl Blood Gas Specimen Type Arterial Blood Gas Sample Site Right radial Blood Gas Patient Temperature 37.0 Arterial Blood Date Drawn [id number] Arterial Blood pH 7.172 *L 7.350-7.450 Arterial Blood Partial Pressure CO2 23.5 L 35.0-48.0 mmHg Arterial Blood Partial Pressure O2 166.4 H 83.0-108.0 mmHg Arterial Blood HCO3 8.4 L 21.0-28.0 mmol/L Arterial Blood Oxygen Saturation 98.5 H 94.0-98.0 % Arterial Blood Base Excess -18.3 L -2.0-3.0 mmol/L Arterial Blood Oxyhemoglobin 97.5 94.0-98.0 % Arterial Blood Carboxyhemoglobin 0.5 0.5-1.5 % Arterial Blood Methemoglobin 0.5 0.0-1.5 % Carmelo Test Modified Blood Gas Total Hemoglobin 13.40 L 13.5-17.5 g/dL Blood Gas Set Respiration Rate 16.0 Blood Gas Modality Vent - ac FiO2 % 40.0 Blood Gas Tidal Volume 450.0 Blood Gas PEEP or CPAP 5.0 Blood Gas Critical Value Read Back Yes Blood Gas Notified Whom Juni cantrell np Blood Gas Notified Time [id number] Blood Gas Notified By Chaparrita laird rrt White Blood Count 17.9 H 4.4-10.8 10^3/uL Red Blood Count 3.65 L 4.5-5.90 10^6/uL Hemoglobin 10.5 #L 13.5-17.5 g/dL Hematocrit 31.7 #L 41.0-53.0 % Mean Corpuscular Volume 86.9 80.0-100.0 fL Mean Corpuscular Hemoglobin 28.6 28.0-32.0 pg Mean Corpuscular Hemoglobin Concent 32.9 32.0-36.0 g/dL Red Cell Distribution Width 14.6 H 11.8-14.3 % Platelet Count 623 H 140-450 10^3/uL Mean Platelet Volume 7.8 6.9-10.8 fL Neutrophils (%) (Auto) 86.8 H 37.0-80.0 % Lymphocytes (%) (Auto) 5.1 L 10.0-50.0 % Monocytes (%) (Auto) 7.8 0.0-12.0 % Eosinophils (%) (Auto) 0.0 0.0-7.0 % Basophils (%) (Auto) 0.3 0.0-2.0 % Neutrophils # (Auto) 15.6 H 1.6-8.6 10 ^3/uL Lymphocytes # (Auto) 0.9 0.4-5.4 10 ^3/uL Monocytes # (Auto) 1.4 H 0-1.3 10 ^3/uL Eosinophils # (Auto) 0 0-0.8 10 ^3/uL Basophils # (Auto) 0.1 0-0.2 10 ^3/uL Nucleated Red Blood Cells 0.2 % Total Bilirubin < 0.2 L 0.2-1.0 mg/dL Aspartate Amino Transferase (AST) 61 H <34 U/L Alanine Aminotransferase (ALT) 44 H 7-40 U/L Alkaline Phosphatase 95 46-116 U/L Troponin I High Sensitivity 40 </=54 ng/L Total Protein 5.1 L 5.7-8.2 g/dL Albumin 3.0 L 3.2-4.8 g/dL Test 03/31/25 00:36 03/31/25 00:20 03/30/25 21:30 03/30/25 21:04 Range/Units Blood Gas Specimen Type Arterial Arterial Blood Gas Sample Site Left radial Left radial Blood Gas Patient Temperature 37.0 37.0 Arterial Blood Date Drawn [id number] Arterial Blood pH 7.175 *L 7.102 *L 7.350-7.450 Arterial Blood Partial Pressure CO2 26.6 L 31.5 L 35.0-48.0 mmHg Arterial Blood Partial Pressure O2 186.8 H 251.9 H 83.0-108.0 mmHg Arterial Blood HCO3 9.6 L 9.6 L 21.0-28.0 mmol/L Arterial Blood Oxygen Saturation 98.8 H 99.3 H 94.0-98.0 % Arterial Blood Base Excess -17.3 L -18.8 L -2.0-3.0 mmol/L Arterial Blood Oxyhemoglobin 97.9 98.0 94.0-98.0 % Arterial Blood Carboxyhemoglobin 0.3 L 0.7 0.5-1.5 % Arterial Blood Methemoglobin 0.6 0.6 0.0-1.5 % Carmelo Test Modified Modified Blood Gas Total Hemoglobin 11.50 L 12.20 L 13.5-17.5 g/dL Blood Gas Set Respiration Rate 16.0 16.0 Blood Gas Modality Vent - ac Vent - ac FiO2 % 70.0 100.0 Blood Gas Tidal Volume 450.0 450.0 Blood Gas PEEP or CPAP 5.0 5.0 Blood Gas Critical Value Read Back Yes Yes Blood Gas Notified Whom marcelina Mcgarry md, m. md Blood Gas Notified Time [id number] Blood Gas Notified By marcelina Mcgarry md Cable Installation Manager sheldon jay Creatine Kinase 3197 H 46-171 U/L Troponin I High Sensitivity 37 </=54 ng/L Urine Color Brown H Yellow Urine Clarity Ex.turbid Clear Urine pH 6.0 5.0-9.0 Urine Specific Tyler 1.014 1.001-1.035 Urine Protein 2+ H Negative Urine Ketones Negative Negative Urine Blood 2+ H Negative /uL Urine Nitrite Negative Negative Urine Bilirubin Negative Negative Urine Urobilinogen Normal Negative mg/dL Urine Leukocyte Esterase 3+ Negative /uL Urine RBC 165 0 - 3 /hpf Urine WBC Clumps Present None Seen /hpf Urine Microscopic WBC 3402 H 0-3 /HPF Urine Squamous Epithelial Cells None seen <5 /hpf Urine Bacteria Few H None Seen /hpf Urine Yeast (Budding) Loaded None Seen /hpf Urine Glucose Normal Normal mg/dL Urine Opiates Screen Neg NEGATIVE Urine Fentanyl Screen Pos NEGATIVE Urine Barbiturates Screen Neg NEGATIVE Urine Phencyclidine Screen Neg NEGATIVE Urine Amphetamines Screen Neg NEGATIVE Urine Benzodiazepines Screen Pos NEGATIVE Urine Cocaine Screen Neg NEGATIVE Urine Cannabinoids Screen Neg NEGATIVE Test 03/30/25 20:38 03/30/25 20:08 03/30/25 19:03 03/30/25 18:38 Range/Units Lactic Acid Level 3.2 *H 4.5 *H 0.4-2.0 mmol/L Troponin I High Sensitivity 19 17 </=54 ng/L POC Glucose 78 70-106 mg/dl White Blood Count 14.8 H 4.4-10.8 10^3/uL Red Blood Count 3.08 L 4.5-5.90 10^6/uL Hemoglobin 8.9 L 13.5-17.5 g/dL Hematocrit 26.9 L 41.0-53.0 % Mean Corpuscular Volume 87.1 80.0-100.0 fL Mean Corpuscular Hemoglobin 29.0 28.0-32.0 pg Mean Corpuscular Hemoglobin Concent 33.3 32.0-36.0 g/dL Red Cell Distribution Width 14.9 H 11.8-14.3 % Platelet Count 521 H 140-450 10^3/uL Mean Platelet Volume 7.7 6.9-10.8 fL Neutrophils (%) (Auto) 92.1 H 37.0-80.0 % Lymphocytes (%) (Auto) 2.6 L 10.0-50.0 % Monocytes (%) (Auto) 5.1 0.0-12.0 % Eosinophils (%) (Auto) 0.0 0.0-7.0 % Basophils (%) (Auto) 0.2 0.0-2.0 % Neutrophils # (Auto) 13.6 H 1.6-8.6 10 ^3/uL Lymphocytes # (Auto) 0.4 0.4-5.4 10 ^3/uL Monocytes # (Auto) 0.8 0-1.3 10 ^3/uL Eosinophils # (Auto) 0 0-0.8 10 ^3/uL Basophils # (Auto) 0 0-0.2 10 ^3/uL Nucleated Red Blood Cells 0.1 % Sodium Level 140 136-145 mmol/L Potassium Level 5.1 3.5-5.1 mmol/L Chloride Level 109 H 98-107 mmol/L Carbon Dioxide Level < 10 *L 20-31 mmol/L Anion Gap 21.56934 H 5-15 Blood Urea Nitrogen 80 *H 9-23 mg/dL Creatinine 10.65 *H 0.700-1.30 mg/dL Glomerular Filtration Rate Calc 5 >90 mL/min BUN/Creatinine Ratio 7.5 L 10.0-20.0 Serum Glucose 104 74-106 mg/dL Calcium Level 7.7 L 8.7-10.4 mg/dL Magnesium Level 1.7 1.6-2.6 mg/dL Total Bilirubin < 0.2 L 0.2-1.0 mg/dL Aspartate Amino Transferase (AST) 53 H <34 U/L Alanine Aminotransferase (ALT) 41 H 7-40 U/L Alkaline Phosphatase 72 46-116 U/L Ammonia < 10 L 11-32 umol/L Total Protein 4.4 L 5.7-8.2 g/dL Albumin 2.6 L 3.2-4.8 g/dL Salicylates Level < 3.0 -30 mg/dL Acetaminophen Level < 2.0 L 10.0-20.0 UG/ML Plasma/Serum Blood Alcohol < 3.0 <10 mg/dL Assessment Acute kidney injury likely ischemic ATN in the setting of shock Septic shock Ventilator-dependent hypoxic respiratory failure Anion gap metabolic acidosis with respiratory acidosis in the setting of lactic acidosis plus ketosis UDS positive for fentanyl and benzos Diabetes Anemia recs Bicarb drip as ordered continue dextrose based fluid suspect starvation ketosis also DC insulin drip and long-acting insulin as patient came in hypoglycemic Strict Is&Os Up titrate vasopressors p.r.n. maintain map greater than 65 Baseline creatinine 1.29 few days ago We will monitor closely if no improvement in renal parameters we will consider dialysis in the next 24 to 48 hours Previous admission medical records noted Reviewed vital signs, lab work, imaging studies, medications, microbiology, o ther physician recommendations Total time spent 75 minutes More than 50% of the time spent providing direct [id number] care . Thank you for allowing me to participate in the care of your patient. Plan discussed with: Other LAURE STANTON MD Mar 31, 2025 13:02
[2025-03-31] MEDS ORDERED: VANCOMYCIN PER PHARMACY 0 MG IV SCH (15:30)
[2025-03-31 17:03] LABS: Lactic Acid w/Reflex 4.4 mmol/L (0.4-2.0)
[2025-03-31] MEDS: VANCOMYCIN 1GM/200ML PM 200 ML IV ONE (17:38)
[2025-04-01] VITALS (113 sets, daily range): BP systolic 89–131; BP diastolic 40–93; PULSE 61–105; RESP 8–30; TEMP 94.5–100; O2SAT 93–100
[2025-04-01] MEDS ORDERED: cefTRIAXone 1GM/50ML D5W 50 ML IV SCH (01:00)
--- NOTE | 2025-04-01 05:31 | DVH ---
EXAM: XR Chest, 1 View CLINICAL INDICATION: Pain TECHNIQUE: Frontal view of the chest. COMPARISON: XR Chest dated 03/30/2025 FINDINGS: LUNGS AND PLEURAL SPACES: See below. HEART: Cardiomegaly with mild congestion. MEDIASTINUM: Unremarkable. Normal mediastinal contour. BONES/JOINTS: Unremarkable. No acute fracture. TUBES, LINES AND DEVICES: The endotracheal tube (ETT) is in satisfactory position. Enteric tube tip in the stomach. IMPRESSION: Cardiomegaly with mild congestion.
[2025-04-01 05:47] LABS: Hemoglobin 9.2 g/dL (13.5-17.5); Mean Corpuscular Volume 85.5 fL (80.0-100.0); Nucleated Red Blood Cells % 0.3 %
[2025-04-01 05:48] LABS: Hematocrit 27.6 % (41.0-53.0); Mean Corpuscular Hemoglobin 28.3 pg (28.0-32.0)
[2025-04-01 06:09] LABS: Alanine Aminotransferase 37 U/L (7-40); Alkaline Phosphatase 98 U/L (46-116); Anion Gap 22 (5-15); BUN/Creatinine Ratio 6.9 (10.0-20.0); Chloride 102 mmol/L (98-107); Potassium 3.9 mmol/L (3.5-5.1); Sodium 142 mmol/L (136-145)
[2025-04-01 06:14] LABS: Albumin 3.0 g/dL (3.2-4.8); Bilirubin, Total < 0.2 mg/dL (0.2-1.0); Blood Urea Nitrogen 68 mg/dL (9-23); Calcium 6.9 mg/dL (8.7-10.4); Carbon Dioxide 18 mmol/L (20-31); Glucose 69 mg/dL (74-106); Total Protein 5.2 g/dL (5.7-8.2)
[2025-04-01 06:52] LABS: Base Excess -6.9 mmol/L (-2.0-3.0)
[2025-04-01 08:59] LABS: Lactic Acid w/Reflex 4.9 mmol/L (0.4-2.0)
[2025-04-01] MEDS: MEROPENEM 500MG IVPB 50 ML IV SCH (09:50)
[2025-04-01] MEDS ORDERED: MEROPENEM 1GM IVPB 50 ML IV SCH (10:00)
[2025-04-01] MEDS ORDERED: INSULIN LANTUS (GLARGINE) 1 /0.01ml (100units/ml) SC SCH (10:00)
--- NOTE | 2025-04-01 16:43 | DVHPNRES ---
Progress Note Date Seen: Apr 01, 2025 Resident Creating Document: ERICK SILVESTRE RESIDENT Medical Necessity Reason Pt with a Central, PICC or Fol: Yes The following are medically ne: Central Line, Roach Catheter Medical Necessity Reason Patient seen and examined. intubated, on mechanical ventilation, and sedated. WBC improving, Lactic acid still trending up. He is on bicarb in D5W at 125 mls/hr. Nephrology is on board. Patient is making urine last amount was 700ml overnight. Chest xray seen. No need for lasix today. Will follow up with labs in the morning. If need be, will broncho him, give lasix. Subjective Review of Systems sedated Objective vital signs Vital Sign Date Time Temp Pulse Resp B/P (MAP) Pulse Ox O2 Delivery O2 Flow Rate FiO2 04/01/25 15:45 68 16 95/46 (62) 100 04/01/25 15:27 30 04/01/25 14:00 Mechanical Ventilator+ 04/01/25 13:00 94.5 94.5 03/30/25 18:30 0 Total Intake and Output 03/31/25 03/31/25 04/01/25 15:00 23:00 07:00 Intake Total 2138.25 ml 1117.02 ml 1427.92 ml Output Total 0 ml 700 ml Balance 2138.25 ml 1117.02 ml 727.92 ml medications Current Medications Medications Dose Ordered Sig/Niesha Route Start Time Stop Time Status Last Admin Dose Admin Norepinephrine Bitartrate 250 ml @ 3.75 mls/hr Q24H IV 03/30/25 19:15 04/01/25 02:10 18.75 MLS/HR Propofol 100 ml @ 2.04 mls/hr Q24H IV 03/30/25 19:45 04/01/25 06:29 12.24 MLS/HR Ondansetron HCl 4 mg Q4HP PRN IV 03/31/25 00:45 Nitroglycerin 0.4 mg Q5MINP PRN SL 03/31/25 00:45 Morphine Sulfate 2 mg Q30M PRN IV 03/31/25 00:45 Albuterol 2.5 mg Q6HPRN PRN NEB 03/31/25 00:45 Pantoprazole Sodium 40 mg DAILY IV 03/31/25 10:00 04/01/25 09:50 40 MG Fentanyl Citrate 250 ml @ 2.5 mls/hr Q24H IV 03/31/25 07:45 04/01/25 15:24 20 MLS/HR Sodium Bicarbonate 150 ml/Dextrose 1,150 ml @ 125 mls/hr Q9H12M IV 03/31/25 08:30 04/01/25 15:22 125 MLS/HR Diagnostic Test (Pha) 1 strip IQ4HR 03/31/25 12:00 04/01/25 16:08 1 STRIP Insulin Human Regular IQ4HR SC 03/31/25 12:00 Dextrose 50 ml UD PRN IV 03/31/25 11:30 Vancomycin HCl 0 ml @ 0 mls/hr UD IV 03/31/25 15:30 Meropenem 50 ml @ 17 mls/hr DAILY IV 04/01/25 10:00 UNV Meropenem 50 ml @ 17 mls/hr DAILY IV 04/01/25 10:00 04/01/25 09:50 17 MLS/HR Examination General Appearance: Sedated and intubated; Mechanical intubated, covered in warmer HEENT: Atraumatic, Respiratory: fair air entry bilateral Cardiovascular: Tachycardia, Normal S1, Normal S2, No murmurs, no chest wall tenderness Abdominal: NO distention, Extremities: No clubbing, No cyanosis, No edema, Normal pulses, No tenderness/swelling, right lower limb amputated Skin: No rashes, No breakdown, No significant lesion Neuro: unable to access Psych/Mental Status: Unable to access laboratory and microbiology Laboratory Tests 04/01/25 04:40 Test 04/01/25 04:40 Range/Units Serum Glucose 69 #L 74-106 mg/dL Microbiology Date/Time Source Procedure Growth Status 03/31/25 17:30 Nose MRSA Screen - Final Complete 03/30/25 21:30 Voided Urine Urine Culture - Preliminary Resulted 03/30/25 19:35 Sputum Gram Stain - Final Resulted 03/30/25 19:35 Sputum Respiratory Culture - Preliminary Resulted 03/30/25 18:38 Blood Blood Culture - Preliminary NO GROWTH AFTER 24 HOURS OF INCUBATION. Resulted Problem List/Assessment/Plan Problem List/Assessment/Plan Assessment and plan Neuro: Metabolic encephalopathy Uremic encephalopathy Hypoglycemia History of CVA Schizophrenia - CT head: No acute intracranial abnormality. - Treat the underlying problem: infection, hypoglycemia and electrolytes Respiratory: Acute hypoxic respiratory failure Possible pneumonia gram-/gram+ Increased anion gap metabolic acidosis CXR: Bibasilar areas of atelectasis or airspace disease - Intubated and on mechanical ventilation - mechanical ventilation - Bicarb 7 received - Meropenem - Vancomycin Gastrointestinal Liver Cirrhosis Transaminitis Ammonia < 10 - Monitor closely Genitourinary: Acute Kidney failure likely due to VMN Acute kidney injury likely ischemic ATN in the setting of shock Rhabdomyolysis Bicarb in D5W at 125mls/hr Nephrology following Metabolic/Endocrine Diabetes Mellitus, Hypoglycemia/Hyperglycemia hyperkalemia - replaced electrolytes Infectious Disease Severe sepsis with septic shock Urinary track infection Leukocytosis trending down Lactic acidosis Hypothermia on admission Pending urine and blood culture Antibiotics: Meropenem and vancomycin per pharmacy Fluids D5W with bicarb at 25mls/hr Bicarb ( 7 amps total received now) Hematology Normocytic anemia Thrombocytosis likely due sepsis - Monitor the labs daily - Treat the underlying infections Polysubstance use Fentanyl and benzodiazepine OTHER medical -noncompliance IV access: Central line: right subclavian 03/30/2025 Drips: Fentanyl, propofol and Levophed ; low vent setting Antibiotics: Ceftriaxone ( Discontinued 03/31/2025); Vancomycin, meropenem Roach catheter present 03/30/2025 PLAN: fluid: additional 2 liters stopped Plan: for possible brochoscopy 04/02/2025 Consider giving him lasix, nephrology on the case. They might do dialysis. Goal of care discussed with Nurse Critical care time : 45 minutes Family member contacted. Case discussed with Dr. Baumann, Plan discussed with: Other (Nurse and family on the phone) My Orders My Orders Orders - ERICK SILVESTRE Procedure Category Date Status Time Meropenem 500mg Ivpb PHA 04/01/25 In Process (Merrem 500mg/Ns) 10:00 Vancomycin,Random LAB 04/02/25 Verified 04:00 Creatinine LAB 04/02/25 Verified 04:00 Date of Service: Apr 01, 2025 Billing Provider: EVELINE BAUMANN MD Common Visit Codes: NOT BILLABLE ERICK SILVESTRE Apr 01, 2025 16:43 EVELINE BAUMANN MD Apr 08, 2025 13:44
--- NOTE | 2025-04-01 18:58 | DVHPN2 ---
Progress Note Date Seen: Apr 01, 2025 Medical Necessity Reason Pt with a Central, PICC or Fol: Yes The following are medically ne: Central Line, Roach Catheter Subjective Patient reports: Other (Remains intubated) Review of Systems: Deferred Objective vital signs Vital Sign Date Time Temp Pulse Resp B/P (MAP) Pulse Ox O2 Delivery O2 Flow Rate FiO2 04/01/25 18:17 94 25 112/57 (75) 99 30 04/01/25 18:15 99.3 210.7 04/01/25 18:00 Mechanical Ventilator+ 03/30/25 18:30 0 Total Intake and Output 03/31/25 03/31/25 04/01/25 14:59 22:59 06:59 Intake Total 2120.16 ml 1090.77 ml 1427.92 ml Output Total 0 ml 700 ml Balance 2120.16 ml 1090.77 ml 727.92 ml medications Current Medications Medications Dose Ordered Sig/Niesha Route Start Time Stop Time Status Last Admin Dose Admin Norepinephrine Bitartrate 250 ml @ 3.75 mls/hr Q24H IV 03/30/25 19:15 04/01/25 02:10 18.75 MLS/HR Propofol 100 ml @ 2.04 mls/hr Q24H IV 03/30/25 19:45 04/01/25 06:29 12.24 MLS/HR Ondansetron HCl 4 mg Q4HP PRN IV 03/31/25 00:45 Nitroglycerin 0.4 mg Q5MINP PRN SL 03/31/25 00:45 Morphine Sulfate 2 mg Q30M PRN IV 03/31/25 00:45 Albuterol 2.5 mg Q6HPRN PRN NEB 03/31/25 00:45 Pantoprazole Sodium 40 mg DAILY IV 03/31/25 10:00 04/01/25 09:50 40 MG Fentanyl Citrate 250 ml @ 2.5 mls/hr Q24H IV 03/31/25 07:45 04/01/25 15:24 20 MLS/HR Sodium Bicarbonate 150 ml/Dextrose 1,150 ml @ 125 mls/hr Q9H12M IV 03/31/25 08:30 04/01/25 15:22 125 MLS/HR Diagnostic Test (Pha) 1 strip IQ4HR 03/31/25 12:00 04/01/25 17:57 1 STRIP Insulin Human Regular IQ4HR SC 03/31/25 12:00 Dextrose 50 ml UD PRN IV 03/31/25 11:30 Vancomycin HCl 0 ml @ 0 mls/hr UD IV 03/31/25 15:30 Meropenem 50 ml @ 17 mls/hr DAILY IV 04/01/25 10:00 UNV Meropenem 50 ml @ 17 mls/hr DAILY IV 04/01/25 10:00 04/01/25 09:50 17 MLS/HR Examination: GENERAL:Abnormal, MSK:Abnormal, NEURO:Abnormal laboratory and microbiology Laboratory Tests 04/01/25 04:40 Test 04/01/25 04:40 Range/Units Serum Glucose 69 #L 74-106 mg/dL Microbiology Date/Time Source Procedure Growth Status 03/31/25 17:30 Nose MRSA Screen - Final Complete 03/30/25 21:30 Voided Urine Urine Culture - Preliminary Resulted 03/30/25 19:35 Sputum Gram Stain - Final Resulted 03/30/25 19:35 Sputum Respiratory Culture - Preliminary Resulted 03/30/25 18:38 Blood Blood Culture - Preliminary NO GROWTH AFTER 24 HOURS OF INCUBATION. Resulted Problem List/Assessment/Plan Problem List/Assessment/Plan Acute kidney injury likely ischemic ATN in the setting of shock Septic shock Ventilator-dependent hypoxic respiratory failure Anion gap metabolic acidosis with respiratory acidosis in the setting of lactic acidosis plus ketosis UDS positive for fentanyl and benzos Diabetes Anemia Recommendations Urine output has significantly improved greater than 2000 cc from a.m. 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
[2025-04-01] MEDS: D5W/SOD CHL 0.45% 1,000 ML IV SCH (19:19)
[2025-04-01 20:26] LABS: Lactic Acid w/Reflex 3.9 mmol/L (0.4-2.0)
[2025-04-02] VITALS (106 sets, daily range): BP systolic 87–141; BP diastolic 46–70; PULSE 81–105; RESP 12–32; TEMP 98.1–99.9; O2SAT 92–100
[2025-04-02 04:48] LABS: Hematocrit 27.6 % (41.0-53.0); Hemoglobin 9.5 g/dL (13.5-17.5); Mean Corpuscular Hemoglobin 28.8 pg (28.0-32.0); Mean Corpuscular Volume 83.7 fL (80.0-100.0); Nucleated Red Blood Cells % 0.1 %
[2025-04-02 04:55] LABS: Potassium 3.6 mmol/L (3.5-5.1); Sodium 141 mmol/L (136-145)
[2025-04-02 04:56] LABS: Anion Gap 18 (5-15); Carbon Dioxide 26 mmol/L (20-31)
[2025-04-02 05:02] LABS: BUN/Creatinine Ratio 7.5 (10.0-20.0); Blood Urea Nitrogen 65 mg/dL (9-23); Calcium 6.1 mg/dL (8.7-10.4); Chloride 97 mmol/L (98-107); Glucose 191 mg/dL (74-106)
[2025-04-02 05:06] LABS: Lactic Acid w/Reflex 2.7 mmol/L (0.4-2.0)
--- NOTE | 2025-04-02 05:27 | DVH ---
CHEST RADIOGRAPH Indication: Pneumonia Technique: Single frontal view of the chest was obtained Comparison: XY CHEST PORTABLE on DOS: 04/01/25 FINDINGS: Lines and Tubes: The endotracheal tube terminates 4.7 cm above the lucrecia. Right central venous cath eter terminates in the superior cavoatrial junction. The enteric tube terminates below the left hemid iaphragm and outside the field of view. Lungs: Bilateral pulmonary interstitial prominence. Pleura: No effusion. No pneumothorax. Cardiomediastinal contours: Cardiomegaly, stable. Bones: No acute osseous abnormality. IMPRESSION: 1. Stable position of the support lines and tubes. 2. Pulmonary venous congestion, stable. 3. Cardiomegaly.
[2025-04-02 06:03] LABS: Base Excess 1.3 mmol/L (-2.0-3.0)
[2025-04-02] MEDS: CALCIUM GLUC 1,000mg/50ml-NS 50 ML IV ONE (09:35)
--- NOTE | 2025-04-02 11:59 | DVHPNRES ---
Progress Note Date Seen: Apr 02, 2025 Resident Creating Document: ERICK SILVESTRE RESIDENT Medical Necessity Reason Pt with a Central, PICC or Fol: Yes The following are medically ne: Central Line, Roach Catheter Medical Necessity Reason Patient seen and sedated. Currently on Fentanyl, propofol and levophed ( BP). Patient gradually getting better. WBC ; 12.3, Hgb: 9.5 and plt: 465. ABG is mildly alkalotic (ph: 7.465) . lactic acid is also improved ( 2.7). Calcium is low (corrected: 6.9) and mag (low): 1.1. CXR showed Pulmonary venous congestion, stable.Cardiomegaly. Patient was had bronchoscopy today. Lots of mucus noted in his bronchi. samples taken. Plan to try to wake him up tomorrow. Prior to that, will check his chest x-ray and give lasix 100 mg. Subjective Review of Systems Unable to get. Patient on ventilator on minimal setting. on Fentanyl and propofol for sedation and relaxation. Levophed 6mcg/della. And then antibiotic.Vitals are relatively stable. Labs today wbc: 12.3, hgb: 9.5, plt 465 Objective vital signs Vital Sign Date Time Temp Pulse Resp B/P (MAP) Pulse Ox O2 Delivery O2 Flow Rate FiO2 04/02/25 10:45 98.2 84 24 121/58 (79) 100 208.8 04/02/25 10:06 30 04/02/25 10:00 Mechanical Ventilator+ Total Intake and Output 04/01/25 04/01/25 04/02/25 15:00 23:00 07:00 Intake Total 1441.69 ml 1180.50 ml 980.59 ml Output Total 2450 ml 2450 ml Balance 1441.69 ml -1269.50 ml -1469.41 ml medications Current Medications Medications Dose Ordered Sig/Niesha Route Start Time Stop Time Status Last Admin Dose Admin Norepinephrine Bitartrate 250 ml @ 3.75 mls/hr Q24H IV 03/30/25 19:15 04/01/25 21:35 11.25 MLS/HR Propofol 100 ml @ 2.04 mls/hr Q24H IV 03/30/25 19:45 04/02/25 06:30 16.32 MLS/HR Ondansetron HCl 4 mg Q4HP PRN IV 03/31/25 00:45 Nitroglycerin 0.4 mg Q5MINP PRN SL 03/31/25 00:45 Morphine Sulfate 2 mg Q30M PRN IV 03/31/25 00:45 Albuterol 2.5 mg Q6HPRN PRN NEB 03/31/25 00:45 Pantoprazole Sodium 40 mg DAILY IV 03/31/25 10:00 04/02/25 09:36 40 MG Fentanyl Citrate 250 ml @ 2.5 mls/hr Q24H IV 03/31/25 07:45 04/02/25 04:52 20 MLS/HR Diagnostic Test (Pha) 1 strip IQ4HR 03/31/25 12:00 04/02/25 08:28 1 STRIP Insulin Human Regular IQ4HR SC 03/31/25 12:00 04/02/25 07:43 3 UNITS Dextrose 50 ml UD PRN IV 03/31/25 11:30 Vancomycin HCl 0 ml @ 0 mls/hr UD IV 03/31/25 15:30 Meropenem 50 ml @ 17 mls/hr DAILY IV 04/01/25 10:00 UNV Meropenem 50 ml @ 17 mls/hr DAILY IV 04/01/25 10:00 04/02/25 09:36 17 MLS/HR Dextrose/Sodium Chloride 1,000 ml @ 75 mls/hr [id number] IV 04/01/25 19:00 04/02/25 08:30 75 MLS/HR Examination General Appearance: Sedated and intubated; Mechanical intubated, covered in warmer HEENT: Atraumatic, Respiratory: fair air entry bilateral Cardiovascular: Tachycardia, Normal S1, Normal S2, No murmurs, no chest wall tenderness Abdominal: NO distention, Extremities: No clubbing, No cyanosis, No edema, Normal pulses, No tenderness/swelling, right lower limb amputated Skin: No rashes, No breakdown, No significant lesion Neuro: unable to access Psych/Mental Status: Unable to access laboratory and microbiology Laboratory Tests 04/02/25 04:22 Test 04/02/25 04:22 Range/Units Serum Glucose 191 #H 74-106 mg/dL Microbiology Date/Time Source Procedure Growth Status 03/31/25 17:30 Nose MRSA Screen - Final Complete 03/30/25 21:30 Voided Urine Urine Culture - Preliminary Resulted 03/30/25 19:35 Sputum Gram Stain - Final Resulted 03/30/25 19:35 Sputum Respiratory Culture - Preliminary Resulted 03/30/25 18:38 Blood Blood Culture - Preliminary NO GROWTH AFTER 48 HOURS OF INCUBATION. Resulted Problem List/Assessment/Plan Problem List/Assessment/Plan Assessment and plan Neuro: Metabolic encephalopathy Uremic encephalopathy Hypoglycemia History of CVA Schizophrenia - CT head: No acute intracranial abnormality. - Treat the underlying problem: infection, hypoglycemia and electrolytes, abnormalities Respiratory: Acute hypoxic respiratory failure Possible pneumonia gram-/gram+ Increased anion gap metabolic acidosis CXR: Bibasilar areas of atelectasis or airspace disease - Intubated and on mechanical ventilation - mechanical ventilation - Bicarb 7 received, discontinued 04/01/2025 - Meropenem - Vancomycin Gastrointestinal Liver Cirrhosis Transaminitis Ammonia < 10 - Monitor LFT closely Genitourinary: Acute Kidney failure likely due to VMN Acute kidney injury likely ischemic ATN in the setting of shock Good amount of urine made Rhabdomyolysis D5W in .45 NS at 75mls/hr Nephrology following Metabolic/Endocrine DKA, Hypoglycemia/Hyperglycemia hyperkalemia Hyperphosphatemia hypomagnesemia - replaced electrolytes - Infectious Disease Severe sepsis with septic shock Urinary track infection, Urine culture: >100,000 CFU/mL Yeast Identification to follow. Leukocytosis trending down Lactic acidosis-improving Hypothermic on admission Blood culture: No growth as of yet Antibiotics: Meropenem and vancomycin per pharmacy Fluids D5W with bicarb at 25mls/hr Bicarb ( 7 amps total received now) Hematology Normocytic anemia Thrombocytosis likely due sepsis - Monitor the labs daily - Treat the underlying infections Polysubstance use Fentanyl and benzodiazepine OTHER medical -noncompliance IV access: Central line: right subclavian 03/30/2025 Drips: Fentanyl, propofol and Levophed ; low vent setting Antibiotics: Ceftriaxone ( Discontinued 03/31/2025); Vancomycin, meropenem Roach catheter present 03/30/2025 PLAN: Plan to try to wake him up tomorrow 04/03/2025. Prior to that, will check his chest x-ray and give lasix 100 mg Plan: s/p bronchoscopy 04/02/2025 Disposition: [facility] Goal of care discussed with Nurse Critical care time : 45 minutes Family member contacted. Case discussed with Dr. Baumann, Plan discussed with: Other My Orders My Orders Orders - ERICK SILVESTRE RESIDENT Procedure Category Date Status Time Chest Xray 1 View XY 04/02/25 Resulted 04:00 Dietary Evaluation Review Comments: Nutrition Recommendation; 1) TF Vital HP @ 50ml/hr. Start @ 20ml/hr, increase 10ml/hr Q4H until goal is reached. TF @ goal volume along with propofol & IVF D5w/NS 0.45% provides 1937 kcal (100% energy needs), 105 gm protein (100% protein needs), 1003 ml free water. 2) Water flush 150ml Q4H 3) TPN if NPO > 7 days 4) Monitor NPO status, lab values, wt trend, I/O Expected Outcomes/Goals: To meet at least 75% estimated needs within 7 days FU 2-3 days Date of Service: Apr 02, 2025 Billing Provider: EVELINE BAUMANN MD Common Visit Codes: NOT BILLABLE ERICK SILVESTRE RESIDENT Apr 02, 2025 11:59 EVELINE BAUMANN MD Apr 08, 2025 13:46
[2025-04-02] MEDS: MAGNESIUM SULFATE 1GM/100ML 100 ML IV SCH (12:20)
[2025-04-02] MEDS: FLUCONAZOLE 200MG/100ML 100 ML IV ONE (15:27)
--- NOTE | 2025-04-02 17:09 | DVHPN2 ---
Progress Note Date Seen: Apr 02, 2025 Medical Necessity Reason Pt with a Central, PICC or Fol: Yes The following are medically ne: Central Line, Roach Catheter Subjective Patient reports: Other (Patient remains intubated blood pressure on low side currently on Levophed) Review of Systems: Deferred Objective vital signs Vital Sign Date Time Temp Pulse Resp B/P (MAP) Pulse Ox O2 Delivery O2 Flow Rate FiO2 04/02/25 16:45 99.1 82 24 118/51 (73) 99 210.4 04/02/25 16:00 Mechanical Ventilator+ 30 30 Total Intake and Output 04/01/25 04/01/25 04/02/25 15:00 23:00 07:00 Intake Total 1441.69 ml 1180.50 ml 980.59 ml Output Total 2450 ml 2450 ml Balance 1441.69 ml -1269.50 ml -1469.41 ml medications Current Medications Medications Dose Ordered Sig/Niesha Route Start Time Stop Time Status Last Admin Dose Admin Norepinephrine Bitartrate 250 ml @ 3.75 mls/hr Q24H IV 03/30/25 19:15 04/01/25 21:35 11.25 MLS/HR Propofol 100 ml @ 2.04 mls/hr Q24H IV 03/30/25 19:45 04/02/25 16:37 16.32 MLS/HR Ondansetron HCl 4 mg Q4HP PRN IV 03/31/25 00:45 Nitroglycerin 0.4 mg Q5MINP PRN SL 03/31/25 00:45 Morphine Sulfate 2 mg Q30M PRN IV 03/31/25 00:45 Albuterol 2.5 mg Q6HPRN PRN NEB 03/31/25 00:45 Pantoprazole Sodium 40 mg DAILY IV 03/31/25 10:00 04/02/25 09:36 40 MG Fentanyl Citrate 250 ml @ 2.5 mls/hr Q24H IV 03/31/25 07:45 04/02/25 16:37 20 MLS/HR Diagnostic Test (Pha) 1 strip IQ4HR 03/31/25 12:00 04/02/25 16:21 1 STRIP Insulin Human Regular IQ4HR SC 03/31/25 12:00 04/02/25 16:23 4 UNITS Dextrose 50 ml UD PRN IV 03/31/25 11:30 Vancomycin HCl 0 ml @ 0 mls/hr UD IV 03/31/25 15:30 Meropenem 50 ml @ 17 mls/hr DAILY IV 04/01/25 10:00 UNV Meropenem 50 ml @ 17 mls/hr DAILY IV 04/01/25 10:00 04/02/25 09:36 17 MLS/HR Dextrose/Sodium Chloride 1,000 ml @ 75 mls/hr [id number] IV 04/01/25 19:00 04/02/25 08:30 75 MLS/HR Fluconazole 100 ml @ 100 mls/hr DAILY IV 04/03/25 10:00 Examination: GENERAL:Normal, MSK:Abnormal, NEURO:Abnormal laboratory and microbiology Laboratory Tests 04/02/25 04:22 Test 04/02/25 04:22 Range/Units Serum Glucose 191 #H 74-106 mg/dL Microbiology Date/Time Source Procedure Growth Status 03/31/25 17:30 Nose MRSA Screen - Final Complete 03/30/25 21:30 Voided Urine Urine Culture - Preliminary Resulted 03/30/25 19:35 Sputum Gram Stain - Final Complete 03/30/25 19:35 Sputum Respiratory Culture - Final Complete 03/30/25 18:38 Blood Blood Culture - Preliminary NO GROWTH AFTER 48 HOURS OF INCUBATION. Resulted Problem List/Assessment/Plan Problem List/Assessment/Plan Acute kidney injury likely ischemic ATN in the setting of shock Septic shock Ventilator-dependent hypoxic respiratory failure Anion gap metabolic acidosis with respiratory acidosis in the setting of lactic acidosis plus ketosis UDS positive for fentanyl and benzos Diabetes Anemia Recommendations Urine output has significantly improved DC bicarb drip switch to D5 half NS Remains on Levophed No need for dialysis Plan discussed with: Other My Orders My Orders Orders - LAURE STANTON MD Procedure Category Date Status Time D5w/Sod Chl 0.45% PHA 04/01/25 In Process (D5w 1/2ns) 19:00 Dietary Evaluation Review Comments: Nutrition Recommendation; 1) TF Vital HP @ 50ml/hr. Start @ 20ml/hr, increase 10ml/hr Q4H until goal is reached. TF @ goal volume along with propofol & IVF D5w/NS 0.45% provides 1937 kcal (100% energy needs), 105 gm protein (100% protein needs), 1003 ml free water. 2) Water flush 150ml Q4H 3) TPN if NPO > 7 days 4) Monitor NPO status, lab values, wt trend, I/O Expected Outcomes/Goals: To meet at least 75% estimated needs within 7 days FU 2-3 days LAURE STANTON MD Apr 02, 2025 17:09
--- NOTE | 2025-04-02 18:12 | DVHNC2 ---
Procedure - procedure bronchoscopy and br washings indication pneumonia consent obtained time out per protocol flexible scope advanced through ET tube tracheobronchial tree examined no endobronchial lesions but mucosa appeared inflamed, copious semi-purulent secretions found in lower lobes bilaterally and thoroughly suctioned in a specimen container for cx. mucosa appeared friable at the end of procedure scope was removed no complications EVELINE BAUMANN MD Apr 02, 2025 18:12
[2025-04-03] VITALS (106 sets, daily range): BP systolic 89–147; BP diastolic 44–78; PULSE 75–113; RESP 11–28; TEMP 96.1–100; O2SAT 86–100
[2025-04-03 05:26] LABS: Hematocrit 28.4 % (41.0-53.0); Hemoglobin 9.7 g/dL (13.5-17.5); Mean Corpuscular Hemoglobin 28.6 pg (28.0-32.0); Mean Corpuscular Volume 83.6 fL (80.0-100.0); Nucleated Red Blood Cells % 0.1 %
[2025-04-03 05:40] LABS: Anion Gap 17 (5-15); Carbon Dioxide 27 mmol/L (20-31); Sodium 142 mmol/L (136-145)
[2025-04-03 05:46] LABS: BUN/Creatinine Ratio 7.6 (10.0-20.0)
[2025-04-03 05:50] LABS: Blood Urea Nitrogen 53 mg/dL (9-23); Chloride 98 mmol/L (98-107); Glucose 193 mg/dL (74-106); Potassium 3.2 mmol/L (3.5-5.1)
[2025-04-03 05:51] LABS: Calcium 5.7 mg/dL (8.7-10.4); Magnesium 1.5 mg/dL (1.6-2.6)
--- NOTE | 2025-04-03 06:20 | DVH ---
EXAM: XR Chest, 1 View CLINICAL INDICATION: Pain TECHNIQUE: Frontal view of the chest. COMPARISON: XR Chest dated 04/02/2025 FINDINGS: LUNGS AND PLEURAL SPACES: See below. HEART: Cardiomegaly with mild congestion. MEDIASTINUM: Unremarkable. Normal mediastinal contour. BONES/JOINTS: Unremarkable. No acute fracture. TUBES, LINES AND DEVICES: The endotracheal tube (ETT) is in satisfactory position. Enteric tube tip in the stomach. Right internal jugular central venous catheter tip in the superior vena cava. IMPRESSION: Cardiomegaly with mild congestion.
[2025-04-03] MEDS: MAGNESIUM SULFATE 1GM/100ML 100 ML IV ONE (08:06)
[2025-04-03] MEDS: FLUCONAZOLE 200MG/100ML 100 ML IV SCH (09:25)
--- NOTE | 2025-04-03 10:42 | DVHPN2 ---
Progress Note Date Seen: Apr 03, 2025 Medical Necessity Reason Pt with a Central, PICC or Fol: Yes The following are medically ne: Central Line, Roach Catheter Subjective Patient reports: Other (intubated) Review of Systems: Deferred Objective vital signs Vital Sign Date Time Temp Pulse Resp B/P (MAP) Pulse Ox O2 Delivery O2 Flow Rate FiO2 04/03/25 10:01 93 24 108/57 (74) 98 30 04/03/25 08:00 99.5 211.1 04/03/25 06:00 Mechanical Ventilator+ Total Intake and Output 04/02/25 04/02/25 04/03/25 15:00 23:00 07:00 Intake Total 1105.31 ml 914.68 ml 587.05 ml Output Total 2600 ml 1750 ml Balance 1105.31 ml -1685.32 ml -1162.95 ml medications Current Medications Medications Dose Ordered Sig/Niesha Route Start Time Stop Time Status Last Admin Dose Admin Norepinephrine Bitartrate 250 ml @ 3.75 mls/hr Q24H IV 03/30/25 19:15 04/03/25 03:46 7.5 MLS/HR Propofol 100 ml @ 2.04 mls/hr Q24H IV 03/30/25 19:45 04/03/25 00:17 8.16 MLS/HR Ondansetron HCl 4 mg Q4HP PRN IV 03/31/25 00:45 Nitroglycerin 0.4 mg Q5MINP PRN SL 03/31/25 00:45 Morphine Sulfate 2 mg Q30M PRN IV 03/31/25 00:45 Albuterol 2.5 mg Q6HPRN PRN NEB 03/31/25 00:45 Pantoprazole Sodium 40 mg DAILY IV 03/31/25 10:00 04/03/25 09:25 40 MG Fentanyl Citrate 250 ml @ 2.5 mls/hr Q24H IV 03/31/25 07:45 04/02/25 16:37 20 MLS/HR Diagnostic Test (Pha) 1 strip IQ4HR 03/31/25 12:00 04/03/25 07:43 1 STRIP Insulin Human Regular IQ4HR SC 03/31/25 12:00 04/03/25 07:43 4 UNITS Dextrose 50 ml UD PRN IV 03/31/25 11:30 Vancomycin HCl 0 ml @ 0 mls/hr UD IV 03/31/25 15:30 Meropenem 50 ml @ 17 mls/hr DAILY IV 04/01/25 10:00 UNV Meropenem 50 ml @ 17 mls/hr DAILY IV 04/01/25 10:00 04/03/25 09:26 17 MLS/HR Dextrose/Sodium Chloride 1,000 ml @ 75 mls/hr [id number] IV 04/01/25 19:00 04/03/25 10:32 75 MLS/HR Fluconazole 100 ml @ 100 mls/hr DAILY IV 04/03/25 10:00 04/03/25 09:25 100 MLS/HR Calcium Acetate 667 mg TIDWMEALS PO 04/03/25 12:00 Examination: GENERAL:Abnormal, MSK:Abnormal, NEURO:Abnormal laboratory and microbiology Laboratory Tests 04/03/25 04:37 Test 04/03/25 04:37 Range/Units Serum Glucose 193 H 74-106 mg/dL Microbiology Date/Time Source Procedure Growth Status 04/02/25 17:38 Bronchial Washings Gram Stain Pending Resulted 04/02/25 17:38 Bronchial Washings Respiratory Culture - Preliminary Resulted 03/31/25 17:30 Nose MRSA Screen - Final Complete 03/30/25 21:30 Voided Urine Urine Culture - Preliminary Resulted 03/30/25 18:38 Blood Blood Culture - Preliminary NO GROWTH AFTER 72 HOURS OF INCUBATION. Resulted Problem List/Assessment/Plan Problem List/Assessment/Plan Acute kidney injury likely ischemic ATN in the setting of shock Septic shock Ventilator-dependent hypoxic respiratory failure Anion gap metabolic acidosis with respiratory acidosis in the setting of lactic acidosis plus ketosis UDS positive for fentanyl and benzos Diabetes Anemia bka hypokalemia hypocalcemia hyperphosphatemia Recommendations Urine output has significantly improved D5 half NS electrolytes replaced Remains on Levophed No need for dialysis Plan discussed with: Other My Orders My Orders Orders - LAURE STANTON MD Procedure Category Date Status Time Calcium Acetate PHA 04/03/25 In Process Capsule (Phoslo 12:00 Dietary Evaluation Review Comments: Nutrition Recommendation; 1) TF Vital HP @ 50ml/hr. Start @ 20ml/hr, increase 10ml/hr Q4H until goal is reached. TF @ goal volume along with propofol & IVF D5w/NS 0.45% provides 1937 kcal (100% energy needs), 105 gm protein (100% protein needs), 1003 ml free water. 2) Water flush 150ml Q4H 3) TPN if NPO > 7 days 4) Monitor NPO status, lab values, wt trend, I/O Expected Outcomes/Goals: To meet at least 75% estimated needs within 7 days FU 2-3 days Critical Care Time (mins): 36 LAURE STANTON MD Apr 03, 2025 10:42
[2025-04-03] MEDS: VANCOMYCIN 500mg/100mL 100 ML IV ONE (10:53)
[2025-04-03] MEDS: POTASSIUM CHL 20MEQ/100ML 100 ML IV ONE ×2 (10:54→17:04)
[2025-04-03] MEDS ORDERED: POTASSIUM CHL 20MEQ/100ML 100 ML IV SCH (12:00)
[2025-04-03] MEDS: CALCIUM ACETATE 667 MG CAP PO SCH (12:09)
[2025-04-03] MEDS: CALCIUM GLUC 1,000mg/50ml-NS 50 ML IV SCH (15:58)
--- NOTE | 2025-04-03 18:20 | DVHPNRES ---
Progress Note Date Seen: Apr 03, 2025 Resident Creating Document: ERICK SILVESTRE RESIDENT Medical Necessity Reason Pt with a Central, PICC or Fol: Yes The following are medically ne: Central Line, Roach Catheter Medical Necessity Reason Patient seen in bed. He seems to be waking up. He is currently on minimal ventilation settings. Labs are improving. Creatinine is trending downward.Nephrology is on board. Will continue same management and will do sedation holiday when creatinine is in normal range. Subjective Review of Systems unable to obptain Objective vital signs Vital Sign Date Time Temp Pulse Resp B/P (MAP) Pulse Ox O2 Delivery O2 Flow Rate FiO2 04/03/25 16:30 98.6 85 24 135/62 (86) 100 209.5 04/03/25 16:00 30 04/03/25 16:00 Mechanical Ventilator+ Total Intake and Output 04/02/25 04/02/25 04/03/25 15:00 23:00 07:00 Intake Total 1105.31 ml 914.68 ml 685.67 ml Output Total 2600 ml 1750 ml Balance 1105.31 ml -1685.32 ml -1064.33 ml medications Current Medications Medications Dose Ordered Sig/Niesha Route Start Time Stop Time Status Last Admin Dose Admin Norepinephrine Bitartrate 250 ml @ 3.75 mls/hr Q24H IV 03/30/25 19:15 04/03/25 03:46 7.5 MLS/HR Propofol 100 ml @ 2.04 mls/hr Q24H IV 03/30/25 19:45 04/03/25 16:30 12.24 MLS/HR Ondansetron HCl 4 mg Q4HP PRN IV 03/31/25 00:45 Nitroglycerin 0.4 mg Q5MINP PRN SL 03/31/25 00:45 Morphine Sulfate 2 mg Q30M PRN IV 03/31/25 00:45 Albuterol 2.5 mg Q6HPRN PRN NEB 03/31/25 00:45 Pantoprazole Sodium 40 mg DAILY IV 03/31/25 10:00 04/03/25 09:25 40 MG Fentanyl Citrate 250 ml @ 2.5 mls/hr Q24H IV 03/31/25 07:45 04/02/25 16:37 20 MLS/HR Diagnostic Test (Pha) 1 strip IQ4HR 03/31/25 12:00 04/03/25 15:58 1 STRIP Insulin Human Regular IQ4HR SC 03/31/25 12:00 04/03/25 16:02 3 UNITS Dextrose 50 ml UD PRN IV 03/31/25 11:30 Vancomycin HCl 0 ml @ 0 mls/hr UD IV 03/31/25 15:30 Meropenem 50 ml @ 17 mls/hr DAILY IV 04/01/25 10:00 UNV Meropenem 50 ml @ 17 mls/hr DAILY IV 04/01/25 10:00 04/03/25 09:26 17 MLS/HR Dextrose/Sodium Chloride 1,000 ml @ 75 mls/hr [id number] IV 04/01/25 19:00 04/03/25 10:32 75 MLS/HR Fluconazole 100 ml @ 100 mls/hr DAILY IV 04/03/25 10:00 04/03/25 09:25 100 MLS/HR Calcium Acetate 667 mg TIDWMEALS PO 04/03/25 12:00 04/03/25 17:50 667 MG Examination General Appearance: Sedated and intubated; Mechanical intubated, covered in warmer HEENT: Atraumatic, Respiratory: fair air entry bilateral Cardiovascular: Tachycardia, Normal S1, Normal S2, No murmurs, no chest wall tenderness Abdominal: NO distention, Extremities: No clubbing, No cyanosis, No edema, Normal pulses, No tenderness/swelling, right lower limb amputated Skin: No rashes, No breakdown, No significant lesion Neuro: unable to access Psych/Mental Status: Unable to access laboratory and microbiology Laboratory Tests 04/03/25 04:37 Test 04/03/25 04:37 Range/Units Serum Glucose 193 H 74-106 mg/dL Microbiology Date/Time Source Procedure Growth Status 04/02/25 17:38 Bronchial Washings Gram Stain - Final Complete 04/02/25 17:38 Bronchial Washings Respiratory Culture - Final Complete 03/31/25 17:30 Nose MRSA Screen - Final Complete 03/30/25 21:30 Voided Urine Urine Culture - Preliminary Resulted 03/30/25 18:38 Blood Blood Culture - Preliminary NO GROWTH AFTER 72 HOURS OF INCUBATION. Resulted Problem List/Assessment/Plan Problem List/Assessment/Plan Assessment and plan Neuro: Metabolic encephalopathy Uremic encephalopathy Hypoglycemia History of CVA Schizophrenia - CT head: No acute intracranial abnormality. - Treat the underlying problem: infection, hypoglycemia and electrolytes, abnormalities Respiratory: Acute hypoxic respiratory failure Possible pneumonia gram-/gram+ Increased anion gap metabolic acidosis CXR: Bibasilar areas of atelectasis or airspace disease - Intubated and on mechanical ventilation - mechanical ventilation - Bicarb 7 received, discontinued 04/01/2025 - Meropenem - Vancomycin Gastrointestinal Liver Cirrhosis Transaminitis Ammonia < 10 - Monitor LFT closely Genitourinary: Acute Kidney failure likely due to VMN Acute kidney injury likely ischemic ATN in the setting of shock Good amount of urine made Rhabdomyolysis D5W in .45 NS at 75mls/hr Nephrology following Metabolic/Endocrine DKA, Hypoglycemia/Hyperglycemia hyperkalemia Hyperphosphatemia hypomagnesemia - replaced electrolytes - Infectious Disease Severe sepsis with septic shock Urinary track infection, Urine culture: >100,000 CFU/mL Yeast Identification to follow. Leukocytosis trending down Lactic acidosis-improving Hypothermic on admission Blood culture: No growth as of yet Antibiotics: Meropenem and vancomycin per pharmacy Fluids D5W with bicarb at 25mls/hr Bicarb ( 7 amps total received now) Hematology Normocytic anemia Thrombocytosis likely due sepsis - Monitor the labs daily - Treat the underlying infections Polysubstance use Fentanyl and benzodiazepine OTHER medical -noncompliance IV access: Central line: right subclavian 03/30/2025 Drips: Fentanyl, propofol and Levophed ; low vent setting Antibiotics: Ceftriaxone ( Discontinued 03/31/2025); Vancomycin, meropenem Roach catheter present 03/30/2025 PLAN: Continue same management. will consider sedation holiday and cpap when creatinine is within normal range. Plan: s/p bronchoscopy 04/02/2025 Disposition: [facility]IELA Goal of care discussed with Nurse Critical care time : 35 minutes Family member contacted. Case discussed with Dr. Baumann, Plan discussed with: Other My Orders My Orders Orders - ERICK SILVESTRE RESIDENT Procedure Category Date Status Time * Wound Consult CONS 04/03/25 Transmitted Vancomycin,Random LAB 04/04/25 Verified 04:00 Creatinine LAB 04/04/25 Verified 04:00 Apply Barrier Cream ARTUR 04/03/25 In Process 10:58 * Dietary Consult CONS 04/03/25 Transmitted 18:11 Dietary Evaluation Review Comments: Nutrition Recommendation; 1) TF Vital HP @ 50ml/hr. Start @ 20ml/hr, increase 10ml/hr Q4H until goal is reached. TF @ goal volume along with propofol & IVF D5w/NS 0.45% provides 1937 kcal (100% energy needs), 105 gm protein (100% protein needs), 1003 ml free water. 2) Water flush 150ml Q4H 3) TPN if NPO > 7 days 4) Monitor NPO status, lab values, wt trend, I/O Expected Outcomes/Goals: To meet at least 75% estimated needs within 7 days FU 2-3 days Date of Service: Apr 03, 2025 Billing Provider: EVELINE BAUMANN MD Common Visit Codes: NOT BILLABLE ERICK SILVESTRE RESIDENT Apr 03, 2025 18:20 EVELINE BAUMANN MD Apr 08, 2025 13:52
[2025-04-04] VITALS (101 sets, daily range): BP systolic 78–144; BP diastolic 45–69; PULSE 67–105; RESP 14–25; TEMP 97.9–99.7; O2SAT 96–100
[2025-04-04 05:08] LABS: Hematocrit 28.5 % (41.0-53.0); Hemoglobin 9.9 g/dL (13.5-17.5); Mean Corpuscular Hemoglobin 28.9 pg (28.0-32.0); Mean Corpuscular Volume 83.4 fL (80.0-100.0); Nucleated Red Blood Cells % 0.1 %
--- NOTE | 2025-04-04 05:16 | DVH ---
EXAM: XR Chest, 1 View CLINICAL INDICATION: Pain TECHNIQUE: Frontal view of the chest. COMPARISON: XR Chest dated 04/02/2025 FINDINGS: LUNGS AND PLEURAL SPACES: See below. HEART: Cardiomegaly with mild congestion. MEDIASTINUM: Unremarkable. Normal mediastinal contour. BONES/JOINTS: Unremarkable. No acute fracture. TUBES, LINES AND DEVICES: Stable tubes and lines. IMPRESSION: 1. Cardiomegaly with mild congestion. 2. No significant change from the prior exam.
[2025-04-04 05:24] LABS: Anion Gap 15 (5-15); BUN/Creatinine Ratio 8.1 (10.0-20.0); Carbon Dioxide 26 mmol/L (20-31); Chloride 101 mmol/L (98-107); Magnesium 1.6 mg/dL (1.6-2.6); Potassium 3.6 mmol/L (3.5-5.1); Sodium 142 mmol/L (136-145)
[2025-04-04 05:25] LABS: Bilirubin, Total 0.3 mg/dL (0.2-1.0)
[2025-04-04 05:26] LABS: Alkaline Phosphatase 126 U/L (46-116); Blood Urea Nitrogen 44 mg/dL (9-23); Glucose 211 mg/dL (74-106)
[2025-04-04 05:27] LABS: Alanine Aminotransferase 46 U/L (7-40); Albumin 3.0 g/dL (3.2-4.8); Calcium 6.6 mg/dL (8.7-10.4); Total Protein 5.5 g/dL (5.7-8.2)
[2025-04-04 07:39] LABS: Base Excess -1.3 mmol/L (-2.0-3.0)
[2025-04-04 07:45] LABS: Base Excess 1.1 mmol/L (-2.0-3.0)
--- NOTE | 2025-04-04 07:46 | ECG ---
[facility] Test Date: 2025-04-03 Test Time: 07:52:54 Pat Name: LISA BENITES Department: Room: 0261 A Gender: M Category Specialist: : 1965 Requested By: PRANAY YAN Order Number: [id number] Reading MD: Roshan Velasco Measurements Intervals [place]lysses Rate: 98 P: 21 OK: 138 QRS: 0 QRSD: 62 T: 78 QT: 428 QTc: 546 Interpretive Statements Normal sinus rhythm Low voltage QRS Prolonged QT Electronically Signed On 04-04-2025 21:12:19 PDT by Roshan Velasco Please click the below link to view image of tracing.
--- NOTE | 2025-04-04 09:44 | DVHPN2 ---
Progress Note Date Seen: Apr 04, 2025 Medical Necessity Reason Pt with a Central, PICC or Fol: Yes The following are medically ne: Central Line, Roach Catheter Subjective Review of Systems: RESPIRATORY:Abnormal Other Systems: Patient seen and examined by myself today in follow-up, patient remained intubated on ventilator Objective vital signs Vital Sign Date Time Temp Pulse Resp B/P (MAP) Pulse Ox O2 Delivery O2 Flow Rate FiO2 04/04/25 08:45 99.3 86 24 83/49 (60) 98 210.7 04/04/25 08:00 Mechanical Ventilator+ 30 30 Total Intake and Output 04/03/25 04/03/25 04/04/25 15:00 23:00 07:00 Intake Total 964.78 ml 1101.63 ml 856.20 ml Output Total 1850 ml 1700 ml Balance 964.78 ml -748.37 ml -843.80 ml medications Current Medications Medications Dose Ordered Sig/Niesha Route Start Time Stop Time Status Last Admin Dose Admin Norepinephrine Bitartrate 250 ml @ 3.75 mls/hr Q24H IV 03/30/25 19:15 04/03/25 03:46 7.5 MLS/HR Propofol 100 ml @ 2.04 mls/hr Q24H IV 03/30/25 19:45 04/04/25 06:15 12.24 MLS/HR Ondansetron HCl 4 mg Q4HP PRN IV 03/31/25 00:45 Nitroglycerin 0.4 mg Q5MINP PRN SL 03/31/25 00:45 Morphine Sulfate 2 mg Q30M PRN IV 03/31/25 00:45 Albuterol 2.5 mg Q6HPRN PRN NEB 03/31/25 00:45 Pantoprazole Sodium 40 mg DAILY IV 03/31/25 10:00 04/04/25 09:24 40 MG Fentanyl Citrate 250 ml @ 2.5 mls/hr Q24H IV 03/31/25 07:45 04/04/25 06:17 12.5 MLS/HR Diagnostic Test (Pha) 1 strip IQ4HR 03/31/25 12:00 04/04/25 08:00 1 STRIP Insulin Human Regular IQ4HR SC 03/31/25 12:00 04/04/25 09:36 4 UNITS Dextrose 50 ml UD PRN IV 03/31/25 11:30 Vancomycin HCl 0 ml @ 0 mls/hr UD IV 03/31/25 15:30 Meropenem 50 ml @ 17 mls/hr DAILY IV 04/01/25 10:00 UNV Meropenem 50 ml @ 17 mls/hr DAILY IV 04/01/25 10:00 04/04/25 09:24 17 MLS/HR Dextrose/Sodium Chloride 1,000 ml @ 75 mls/hr [id number] IV 04/01/25 19:00 04/04/25 06:25 75 MLS/HR Fluconazole 100 ml @ 100 mls/hr DAILY IV 04/03/25 10:00 04/04/25 09:23 100 MLS/HR Calcium Acetate 667 mg TIDWMEALS PO 04/03/25 12:00 04/03/25 17:50 667 MG Examination: LUNGS:Normal, CVS:Normal, MSK:Normal laboratory and microbiology Laboratory Tests 04/04/25 04:35 Test 04/04/25 04:35 Range/Units Serum Glucose 211 H 74-106 mg/dL Microbiology Date/Time Source Procedure Growth Status 04/02/25 17:38 Bronchial Washings Gram Stain - Final Complete 04/02/25 17:38 Bronchial Washings Respiratory Culture - Final Complete 03/31/25 17:30 Nose MRSA Screen - Final Complete 03/30/25 21:30 Voided Urine Urine Culture - Preliminary Resulted 03/30/25 18:38 Blood Blood Culture - Preliminary NO GROWTH AFTER 72 HOURS OF INCUBATION. Resulted Problem List/Assessment/Plan Problem List/Assessment/Plan Acute kidney injury likely ischemic ATN in the setting of shock Septic shock Vancomycin toxicity Ventilator-dependent hypoxic respiratory failure Anion gap metabolic acidosis with respiratory acidosis in the setting of lactic acidosis plus ketosis UDS positive for fentanyl and benzos Diabetes mellitus type 2 bka hypokalemia hypocalcemia hyperphosphatemia Anemia of chronic kidney disease Recommendations Kidney function slowly improving Increased urine output Strict I&Os DC vancomycin Check urine electrolytes and protein excretion Kidney ultrasound reported within normal limit Calcium acetate 1334 mg NG tube 3 times daily IV pressors for blood pressure support Insulin sliding scale We will continue to follow Plan discussed with: Other (Nurse) Dietary Evaluation Review Comments: Nutrition Recommendation; 1) TF Vital HP @ 50ml/hr. Start @ 20ml/hr, increase 10ml/hr Q4H until goal is reached. TF @ goal volume along with propofol & IVF D5w/NS 0.45% provides 1937 kcal (100% energy needs), 105 gm protein (100% protein needs), 1003 ml free water. 2) Water flush 150ml Q4H 3) TPN if NPO > 7 days 4) Monitor NPO status, lab values, wt trend, I/O Expected Outcomes/Goals: To meet at least 75% estimated needs within 7 days FU 2-3 days RA CARCAMO MD Apr 04, 2025 09:44
[2025-04-04 11:13] LABS: Protein, Urine 112.2 mg/dL (1-14)
[2025-04-04] MEDS: NOREPINEPHRINE 8 MG/250ML KIT 250 ML IV SCH (11:15)
[2025-04-04] MEDS ORDERED: NutriHep RTU 240 mL Unflavored GT SCH (11:15)
--- NOTE | 2025-04-04 12:21 | DVHPNRES ---
Progress Note Date Seen: Apr 04, 2025 Resident Creating Document: ERICK SILVESTRE RESIDENT Medical Necessity Reason Pt with a Central, PICC or Fol: Yes The following are medically ne: Central Line, Roach Catheter Medical Necessity Reason Seen and examined at the bedside. Still sedated. s/p bronchoscopy on 04/02/2025. Lab report so far showed rare Red Blood Cells Seen, Rare Gram Positive Rods, very Rare Gram Positive Cocci in pairs. His vital within 24 hours was very stable. CBC was great, ABG showed ph: 7.51, PCo2L 26.5. Kidney function is slightly improving. Party Host present at the bedside. He recommended increase in D5W .45 N/S from 75mls/hr to 100mls/hr. Wound care saw patient today and noted that patient has DTI ( deep tissue injury). Subjective Review of Systems unable to assess. Patient intubated Objective vital signs Vital Sign Date Time Temp Pulse Resp B/P (MAP) Pulse Ox O2 Delivery O2 Flow Rate FiO2 04/04/25 11:35 100 20 88/48 (61) 100 30 04/04/25 10:00 Mechanical Ventilator+ 04/04/25 08:45 99.3 210.7 Total Intake and Output 04/03/25 04/03/25 04/04/25 15:00 23:00 07:00 Intake Total 964.78 ml 1101.63 ml 856.20 ml Output Total 1850 ml 1700 ml Balance 964.78 ml -748.37 ml -843.80 ml medications Current Medications Medications Dose Ordered Sig/Niesha Route Start Time Stop Time Status Last Admin Dose Admin Propofol 100 ml @ 2.04 mls/hr Q24H IV 03/30/25 19:45 04/04/25 06:15 12.24 MLS/HR Ondansetron HCl 4 mg Q4HP PRN IV 03/31/25 00:45 Nitroglycerin 0.4 mg Q5MINP PRN SL 03/31/25 00:45 Morphine Sulfate 2 mg Q30M PRN IV 03/31/25 00:45 Albuterol 2.5 mg Q6HPRN PRN NEB 03/31/25 00:45 Pantoprazole Sodium 40 mg DAILY IV 03/31/25 10:00 04/04/25 09:24 40 MG Fentanyl Citrate 250 ml @ 2.5 mls/hr Q24H IV 03/31/25 07:45 04/04/25 06:17 12.5 MLS/HR Diagnostic Test (Pha) 1 strip IQ4HR 03/31/25 12:00 04/04/25 08:00 1 STRIP Insulin Human Regular IQ4HR SC 03/31/25 12:00 04/04/25 09:36 4 UNITS Dextrose 50 ml UD PRN IV 03/31/25 11:30 Meropenem 50 ml @ 17 mls/hr DAILY IV 04/01/25 10:00 UNV Meropenem 50 ml @ 17 mls/hr DAILY IV 04/01/25 10:00 04/04/25 09:24 17 MLS/HR Fluconazole 100 ml @ 100 mls/hr DAILY IV 04/03/25 10:00 04/04/25 09:23 100 MLS/HR Calcium Acetate 667 mg TIDWMEALS PO 04/03/25 12:00 Hold 04/03/25 17:50 667 MG Calcium Acetate 1,334 mg TID NG 04/04/25 14:00 Dextrose/Sodium Chloride 1,000 ml @ 100 mls/hr Q10H IV 04/04/25 10:45 Enteral Nutritional Formula 240 ml 50ML/HR GT 04/04/25 11:15 Norepinephrine Bitartrate 250 ml @ 0.938 mls/ hr Q24H IV 04/04/25 11:15 Examination General Appearance: Sedated and intubated; Mechanical intubated, covered in warmer HEENT: Atraumatic, Respiratory: fair air entry bilateral Cardiovascular: Tachycardia, Normal S1, Normal S2, No murmurs, no chest wall tenderness Abdominal: NO distention, Extremities: No clubbing, No cyanosis, No edema, Normal pulses, No tenderness/swelling, right lower limb amputated Skin: No rashes, No breakdown, No significant lesion Neuro: unable to access Psych/Mental Status: Unable to access laboratory and microbiology Laboratory Tests 04/04/25 04:35 Test 04/04/25 04:35 Range/Units Serum Glucose 211 H 74-106 mg/dL Microbiology Date/Time Source Procedure Growth Status 04/02/25 17:38 Bronchial Washings Gram Stain - Final Complete 04/02/25 17:38 Bronchial Washings Respiratory Culture - Final Complete 03/31/25 17:30 Nose MRSA Screen - Final Complete 03/30/25 21:30 Voided Urine Urine Culture - Preliminary Resulted 03/30/25 18:38 Blood Blood Culture - Preliminary NO GROWTH AFTER 72 HOURS OF INCUBATION. Resulted Problem List/Assessment/Plan Problem List/Assessment/Plan Assessment and plan Neuro: Metabolic encephalopathy Uremic encephalopathy Hypoglycemia History of CVA Schizophrenia - CT head: No acute intracranial abnormality. - Treat the underlying problem: infection, hypoglycemia and electrolytes, abnormalities Respiratory: Acute hypoxic respiratory failure Possible pneumonia gram-/gram+ Increased anion gap metabolic acidosis CXR: Bibasilar areas of atelectasis or airspace disease S/p bronchoscopy 04/02/2025,final result pending - Intubated and on mechanical ventilation - mechanical ventilation - Bicarb 7 received, discontinued 04/01/2025 - Meropenem - Fluconazole Cardiology: Cardiomegaly with mild congestion. Gastrointestinal Liver Cirrhosis Transaminitis Ammonia < 10 - Monitor LFT closely Genitourinary: Acute Kidney failure likely due to VMN-Improving Acute kidney injury likely ischemic ATN in the setting of shock Good amount of urine made Rhabdomyolysis D5W in .45 NS at 75mls/hr Nephrology following Metabolic/Endocrine DKA, Hypoglycemia/Hyperglycemia--> Improving hyperkalemia Hyperphosphatemia hypomagnesemia - replaced electrolytes Infectious Disease Severe sepsis with septic shock Urinary track infection, Urine culture: >100,000 CFU/mL Yeast Identification to follow. Leukocytosis trending down Lactic acidosis-improving Hypothermic on admission Blood culture: No growth as of yet Antibiotics: Meropenem and vancomycin per pharmacy Fluids D5W with bicarb at 25mls/hr Bicarb ( 7 amps total received now) Hematology Normocytic anemia Thrombocytosis likely due sepsis; Plt improved - Monitor the labs daily - Treat the underlying infections Polysubstance use Fentanyl and benzodiazepine OTHER medical -noncompliance IV access: Central line: right subclavian 03/30/2025 Drips: Levophed titrated down as tolerated Fentanyl Propofol titrate down Diet: TF vitals 50ml/hr DVT prophylaxis: lovenox 30mg daily Antibiotics: Ceftriaxone ( Discontinued 03/31/2025); Vancomycin ( ); meropenem and fluconazole Roach catheter present 03/30/2025 PLAN: Continue same management. will consider sedation holiday and cpap when creatinine is within normal range. Increase fluid amount to 100 mls/hr Disposition: [facility] Goal of care discussed with Nurse and family member Critical care time: 35 minutes Family member contacted. Case discussed with Dr. Baumann, Plan discussed with: Other My Orders My Orders Orders - ERICK SILVESTRE RESIDENT Procedure Category Date Status Time Apply Barrier Cream ARTUR 04/03/25 In Process 10:58 * Dietary Consult CONS 04/03/25 Transmitted 18:11 Chest Portable XY 04/04/25 Resulted 04:00 Abg W/ Co-Ox RT 04/04/25 Logged 05:37 Notify Provider NOTICE 04/04/25 Transmitted Malnutrition 07:48 Ventilator Orders RT 04/04/25 Transmitted 10:17 Abg W/ Co-Ox RT 04/04/25 Logged 12:15 D5w/Sod Chl 0.45% PHA 04/04/25 In Process (D5w 1/2ns) 10:45 Nutritional PHA 04/04/25 In Process Supplement (Nutrihep 11:15 Norepinephrine 8 PHA 04/04/25 In Process Mg/250ml Kit 11:15 Dietary Evaluation Review Comments: Nutrition Recommendation; 1) TF Vital HP @ 50ml/hr. Start @ 20ml/hr, increase 10ml/hr Q4H until goal is reached. TF @ goal volume along with propofol & IVF D5w/NS 0.45% provides 1937 kcal (100% energy needs), 105 gm protein (100% protein needs), 1003 ml free water. 2) Water flush 150ml Q4H 3) TPN if NPO > 7 days 4) Monitor NPO status, lab values, wt trend, I/O Expected Outcomes/Goals: To meet at least 75% estimated needs within 7 days FU 2-3 days Date of Service: Apr 04, 2025 Billing Provider: EVELINE BAUMANN MD Common Visit Codes: NOT BILLABLE ERICK SILVESTRE RESIDENT Apr 04, 2025 12:20 EVELINE BAUMANN MD Apr 08, 2025 13:53
[2025-04-04] MEDS: CALCIUM ACETATE 667 MG CAP NG SCH (14:00)
[2025-04-04] MEDS: LACTULOSE 20Gm/30ML SOLN NG ONE (16:16)
[2025-04-04] MEDS: ENOXAPARIN SOD 30 MG/0.3 ML SYRINGE SC ONE (16:17)
[2025-04-04] MEDS: D5W/SOD CHL 0.45% 1,000 ML IV SCH (16:44)
[2025-04-04] MEDS: Vital High Protein 1liter Bottle GT SCH (16:47)
[2025-04-05] VITALS (106 sets, daily range): BP systolic 91–144; BP diastolic 36–72; PULSE 62–107; RESP 13–23; TEMP 91.6–98.8; O2SAT 74–100
--- NOTE | 2025-04-05 05:51 | DVH ---
CHEST RADIOGRAPH Indication: INTUBATED Technique: Single frontal view of the chest was obtained COMPARISON: XY CHEST PORTABLE on DOS: 04/04/25, XY CHEST XRAY 1 VIEW on DOS: 04/03/25, XY CHEST XRAY 1 VIEW on DOS: 04/02/25, XY CHEST PORTABLE on DOS: 04/01/25, XY CHEST PORTABLE on DOS: 03/30/25 FINDINGS: Lines and Tubes: Unchanged. Lungs: Stable appearing moderate diffuse increased prominence of the pulmonary vasculature. No evide nce of focal consolidation. Pleura: No effusion. No pneumothorax. Cardiomediastinal contours: Cardiomegaly. Bones: Unremarkable IMPRESSION: 1. Stable cardiomegaly and moderate diffuse increased prominence of the pulmonary vasculature. 2. Lines and tubes unchanged.
[2025-04-05 06:08] LABS: Hematocrit 26.1 % (41.0-53.0); Hemoglobin 8.7 g/dL (13.5-17.5); Mean Corpuscular Hemoglobin 28.2 pg (28.0-32.0); Mean Corpuscular Volume 84.6 fL (80.0-100.0); Nucleated Red Blood Cells % 0.1 %
[2025-04-05 06:20] LABS: Alkaline Phosphatase 109 U/L (46-116); Anion Gap 14 (5-15); BUN/Creatinine Ratio 9.6 (10.0-20.0); Carbon Dioxide 25 mmol/L (20-31); Chloride 103 mmol/L (98-107); Sodium 142 mmol/L (136-145)
[2025-04-05 06:22] LABS: Alanine Aminotransferase 42 U/L (7-40); Albumin 2.7 g/dL (3.2-4.8); Bilirubin, Total 0.2 mg/dL (0.2-1.0); Blood Urea Nitrogen 37 mg/dL (9-23); Calcium 6.3 mg/dL (8.7-10.4); Glucose 239 mg/dL (74-106); Magnesium 1.4 mg/dL (1.6-2.6); Potassium 3.2 mmol/L (3.5-5.1); Total Protein 5.1 g/dL (5.7-8.2)
[2025-04-05] MEDS: POTASSIUM CHL 20MEQ/100ML 100 ML IV ONE (07:04)
[2025-04-05 08:08] LABS: Base Excess 1.2 mmol/L (-2.0-3.0)
--- NOTE | 2025-04-05 09:29 | DVHPN2 ---
Progress Note Date Seen: Apr 05, 2025 Medical Necessity Reason Pt with a Central, PICC or Fol: Yes The following are medically ne: Central Line, Roach Catheter Subjective Review of Systems: RESPIRATORY:Abnormal Other Systems: Patient seen and examined by myself today in follow-up, patient remained intubated on ventilator Objective vital signs Vital Sign Date Time Temp Pulse Resp B/P (MAP) Pulse Ox O2 Delivery O2 Flow Rate FiO2 04/05/25 08:31 64 20 133/65 (87) 99 30 04/05/25 08:00 97.5 207.5 04/05/25 06:00 Mechanical Ventilator+ Total Intake and Output 04/04/25 04/04/25 04/05/25 15:00 23:00 07:00 Intake Total 1109.64 ml 1021.77 ml 1043.19 ml Balance 1109.64 ml 1021.77 ml 1043.19 ml medications Current Medications Medications Dose Ordered Sig/Niesha Route Start Time Stop Time Status Last Admin Dose Admin Propofol 100 ml @ 2.04 mls/hr Q24H IV 03/30/25 19:45 04/05/25 04:56 18.36 MLS/HR Ondansetron HCl 4 mg Q4HP PRN IV 03/31/25 00:45 Nitroglycerin 0.4 mg Q5MINP PRN SL 03/31/25 00:45 Morphine Sulfate 2 mg Q30M PRN IV 03/31/25 00:45 Albuterol 2.5 mg Q6HPRN PRN NEB 03/31/25 00:45 Pantoprazole Sodium 40 mg DAILY IV 03/31/25 10:00 04/04/25 09:24 40 MG Fentanyl Citrate 250 ml @ 2.5 mls/hr Q24H IV 03/31/25 07:45 04/05/25 06:28 27.5 MLS/HR Diagnostic Test (Pha) 1 strip IQ4HR 03/31/25 12:00 04/05/25 08:00 1 STRIP Insulin Human Regular IQ4HR SC 03/31/25 12:00 04/05/25 09:08 4 UNITS Dextrose 50 ml UD PRN IV 03/31/25 11:30 Meropenem 50 ml @ 17 mls/hr DAILY IV 04/01/25 10:00 UNV Meropenem 50 ml @ 17 mls/hr DAILY IV 04/01/25 10:00 04/04/25 09:24 17 MLS/HR Fluconazole 100 ml @ 100 mls/hr DAILY IV 04/03/25 10:00 04/04/25 09:23 100 MLS/HR Calcium Acetate 667 mg TIDWMEALS PO 04/03/25 12:00 Hold 04/03/25 17:50 667 MG Calcium Acetate 1,334 mg TID NG 04/04/25 14:00 04/05/25 05:12 1,334 MG Dextrose/Sodium Chloride 1,000 ml @ 100 mls/hr Q10H IV 04/04/25 10:45 04/05/25 03:14 100 MLS/HR Norepinephrine Bitartrate 250 ml @ 0.938 mls/ hr Q24H IV 04/04/25 11:15 Enteral Nutritional Formula 1,000 ml 50ML/HR GT 04/04/25 12:30 04/04/25 16:47 1,000 ML Enoxaparin Sodium 30 mg DAILY SC 04/05/25 10:00 Examination: LUNGS:Normal, CVS:Normal, MSK:Normal laboratory and microbiology Laboratory Tests 04/05/25 05:30 Test 04/05/25 05:30 Range/Units Serum Glucose 239 H 74-106 mg/dL Microbiology Date/Time Source Procedure Growth Status 04/02/25 17:38 Bronchial Washings Gram Stain - Final Resulted 04/02/25 17:38 Bronchial Washings Respiratory Culture - Preliminary Resulted 03/31/25 17:30 Nose MRSA Screen - Final Complete 03/30/25 21:30 Voided Urine Urine Culture - Final Yeast, not Janna albicans Complete 03/30/25 18:38 Blood Blood Culture - Final NO GROWTH AFTER 5 DAYS OF INCUBATION. Complete Problem List/Assessment/Plan Problem List/Assessment/Plan Acute kidney injury superimposed Chronic Kidney Disease secondary hemodynamic mediated, FeNa <1% Septic shock Vancomycin toxicity Ventilator-dependent hypoxic respiratory failure Anion gap metabolic acidosis with respiratory acidosis in the setting of lactic acidosis plus ketosis UDS positive for fentanyl and benzos Diabetes mellitus type 2 bka hypokalemia hypocalcemia hyperphosphatemia Anemia of chronic kidney disease Recommendations Kidney function continues to improve Increased urine output Strict I&Os DC vancomycin Check urine electrolytes and protein excretion Kidney ultrasound reported within normal limit Low-dose dopamine Calcium acetate 1334 mg NG tube 3 times daily IV pressors for blood pressure support Insulin sliding scale We will continue to follow Plan discussed with: Other (Nurse) My Orders My Orders Orders - RA CARCAMO MD Procedure Category Date Status Time Calcium Acetate PHA 04/04/25 In Process Capsule (Phoslo 14:00 Dietary Evaluation Review Comments: Nutrition Recommendation; 1) TF Vital HP @ 50ml/hr. Start @ 20ml/hr, increase 10ml/hr Q4H until goal is reached. TF @ goal volume along with propofol & IVF D5w/NS 0.45% provides 1937 kcal (100% energy needs), 105 gm protein (100% protein needs), 1003 ml free water. 2) Water flush 150ml Q4H 3) TPN if NPO > 7 days 4) Monitor NPO status, lab values, wt trend, I/O Expected Outcomes/Goals: To meet at least 75% estimated needs within 7 days FU 2-3 days RA CARCAMO MD Apr 05, 2025 09:29
[2025-04-05] MEDS: ENOXAPARIN SOD 30 MG/0.3 ML SYRINGE SC SCH (09:59)
--- NOTE | 2025-04-05 10:46 | DVHPN2 ---
Assessment/Plan Assessment/Plan ICU note covering still on pressor, ABG resp alkalosis, gfr improves adequate UO. physical exam sedated, intubated and mechanically ventilated PERRLA MMM s1 s2 rrr mechanical breath sounds abdomen soft trace LE edema labs ekg imaging reviewed assessment and plan acute hypoxic respiratory failure resp alkalosis septic shock pna gp gn law atn on ckd toxic metabolic encephalopathy hx CVA schizophrenia? cirrhosis DKA resolved UTI anemia chornic disease adjust tv to lung protective vent c/w mechanical vent c/w diuresis goal neg 500- 1L net replete lytes c/w Diflucan, meropenem c/w pressor, maintain MAP >70 daily SAT SBT diet TF dvt ppx lovenox gi ppx protonix condition critical prognosis poor full code critical care time 60 minutes Plan discussed with: Other My Orders Orders - MING MIRANDA MD Procedure Category Date Status Time Ventilator Orders RT 04/05/25 Transmitted 10:19 Basic Metabolic Panel LAB 04/06/25 Verified 04:00 Complete Blood Count LAB 04/06/25 Verified 04:00 Magnesium LAB 04/06/25 Verified 04:00 Phosphorus LAB 04/06/25 Verified 04:00 Date of Service: Apr 05, 2025 Billing Provider: MING MIRANDA MD Common Visit Codes: [id number] CARE 30-74 MIN MING MIRANDA MD Apr 05, 2025 10:46
[2025-04-05] MEDS: DOPamine 1600MCG/ML D5W 250 ML IV SCH (11:48)
--- NOTE | 2025-04-05 13:44 | DVHPN2 ---
Progress Note - Dictate Date Seen: Apr 05, 2025 Medical Necessity Reason Pt with a Central, PICC or Fol: Yes The following are medically ne: Central Line, Roach Catheter vital signs Vital Sign Date Time Temp Pulse Resp B/P (MAP) Pulse Ox O2 Delivery O2 Flow Rate FiO2 04/05/25 12:00 97.7 64 16 92/48 (63) 98 207.9 04/05/25 11:23 30 04/05/25 06:00 Mechanical Ventilator+ Total Intake and Output 04/04/25 04/04/25 04/05/25 15:00 23:00 07:00 Intake Total 1109.64 ml 1193.77 ml 1043.19 ml Output Total 1870 ml Balance 1109.64 ml -676.23 ml 1043.19 ml medications Current Medications Medications Dose Ordered Sig/Niesha Route Start Time Stop Time Status Last Admin Dose Admin Propofol 100 ml @ 2.04 mls/hr Q24H IV 03/30/25 19:45 04/05/25 09:40 18.36 MLS/HR Ondansetron HCl 4 mg Q4HP PRN IV 03/31/25 00:45 Nitroglycerin 0.4 mg Q5MINP PRN SL 03/31/25 00:45 Morphine Sulfate 2 mg Q30M PRN IV 03/31/25 00:45 Albuterol 2.5 mg Q6HPRN PRN NEB 03/31/25 00:45 Pantoprazole Sodium 40 mg DAILY IV 03/31/25 10:00 04/05/25 10:02 40 MG Fentanyl Citrate 250 ml @ 2.5 mls/hr Q24H IV 03/31/25 07:45 04/05/25 06:28 27.5 MLS/HR Diagnostic Test (Pha) 1 strip IQ4HR 03/31/25 12:00 04/05/25 12:01 1 STRIP Insulin Human Regular IQ4HR SC 03/31/25 12:00 04/05/25 12:00 4 UNITS Dextrose 50 ml UD PRN IV 03/31/25 11:30 Meropenem 50 ml @ 17 mls/hr DAILY IV 04/01/25 10:00 UNV Meropenem 50 ml @ 17 mls/hr DAILY IV 04/01/25 10:00 04/05/25 12:04 17 MLS/HR Fluconazole 100 ml @ 100 mls/hr DAILY IV 04/03/25 10:00 04/05/25 09:57 100 MLS/HR Calcium Acetate 667 mg TIDWMEALS PO 04/03/25 12:00 Hold 04/03/25 17:50 667 MG Calcium Acetate 1,334 mg TID NG 04/04/25 14:00 04/05/25 05:12 1,334 MG Dextrose/Sodium Chloride 1,000 ml @ 100 mls/hr Q10H IV 04/04/25 10:45 04/05/25 13:06 100 MLS/HR Norepinephrine Bitartrate 250 ml @ 0.938 mls/ hr Q24H IV 04/04/25 11:15 04/05/25 09:42 3.75 MLS/HR Enteral Nutritional Formula 1,000 ml 50ML/HR GT 04/04/25 12:30 04/04/25 16:47 1,000 ML Enoxaparin Sodium 30 mg DAILY SC 04/05/25 10:00 04/05/25 09:59 30 MG Dopamine HCl/ Dextrose 250 ml @ 5.625 mls/ hr Q24H IV 04/05/25 09:30 04/05/25 11:48 5.625 MLS/HR laboratory and microbiology Laboratory Tests 04/05/25 05:30 Test 04/05/25 05:30 Range/Units Serum Glucose 239 H 74-106 mg/dL Assessment/Plan Impression Acute hypoxemic respiratory failure Pneumonia Atelectasis Sepsis Patient seen and examined in [facility] Events On mechanical ventilation S/p intubation PEEP 5, FiO2 30% S/p bronchoscopy Bronchial washings negative to date Labs and imaging reviewed ABG reviewed Management Vent support Titrate to maintain sats 90% or above Sedation holiday If patient follows commands, proceed to weaning trial Pressure support 04/19, extubate when ready Continue antibiotics F/u cultures Bronchodilators Monitor renal function Monitor electrolytes Supplement as needed Pressors as needed for hemodynamic support To maintain a mean arterial pressure of 65 mmHg DVT prophylaxis Critical care time 35 minutes Dietary Evaluation Review Comments: Nutrition Recommendation; 1) TF Vital HP @ 50ml/hr. Start @ 20ml/hr, increase 10ml/hr Q4H until goal is reached. TF @ goal volume along with propofol & IVF D5w/NS 0.45% provides 1937 kcal (100% energy needs), 105 gm protein (100% protein needs), 1003 ml free water. 2) Water flush 150ml Q4H 3) TPN if NPO > 7 days 4) Monitor NPO status, lab values, wt trend, I/O Expected Outcomes/Goals: To meet at least 75% estimated needs within 7 days FU 2-3 days Plan discussed with: Other (Rn) EVELINE BAUMANN MD Apr 05, 2025 13:44
[2025-04-05] MEDS: MAGNESIUM SULFATE 1GM/100ML 100 ML IV SCH (15:13)
[2025-04-06] VITALS (104 sets, daily range): BP systolic 103–145; BP diastolic 46–103; PULSE 67–90; RESP 15–25; TEMP 97.7–99; O2SAT 93–100
[2025-04-06] MEDS: DEXMEDETOMIDINE HCL IN D5W 100 ML IV SCH (01:40)
--- NOTE | 2025-04-06 03:10 | DVH ---
CHEST RADIOGRAPH Indication: RECHECK PULM CONGESTION Technique: Single frontal view of the chest was obtained COMPARISON: XY CHEST PORTABLE on DOS: 04/05/25, XY CHEST PORTABLE on DOS: 04/04/25, XY CHEST XRAY 1 VIE W on DOS: 04/03/25, XY CHEST XRAY 1 VIEW on DOS: 04/02/25, XY CHEST PORTABLE on DOS: 04/01/25 FINDINGS: Lines and Tubes: Unchanged. Lungs: Stable appearing bibasilar pulmonary airspace disease. No evidence of focal consolidation. Pleura: No effusion. No pneumothorax. Cardiomediastinal contours: Unremarkable Bones: Unremarkable IMPRESSION: 1. Stable bibasilar pulmonary airspace disease. 2. Lines and tubes unchanged.
[2025-04-06 05:14] LABS: Hematocrit 26.9 % (41.0-53.0); Hemoglobin 9.2 g/dL (13.5-17.5); Mean Corpuscular Hemoglobin 28.7 pg (28.0-32.0); Mean Corpuscular Volume 84.1 fL (80.0-100.0); Nucleated Red Blood Cells % 0.1 %
[2025-04-06 05:15] LABS: Chloride 103 mmol/L (98-107); Potassium 3.7 mmol/L (3.5-5.1); Sodium 139 mmol/L (136-145)
[2025-04-06 05:16] LABS: Anion Gap 11 (5-15); Carbon Dioxide 25 mmol/L (20-31)
[2025-04-06 05:21] LABS: BUN/Creatinine Ratio 9.2 (10.0-20.0); Blood Urea Nitrogen 27 mg/dL (9-23); Calcium 7.0 mg/dL (8.7-10.4); Glucose 232 mg/dL (74-106)
[2025-04-06 05:22] LABS: Magnesium 1.6 mg/dL (1.6-2.6)
[2025-04-06 07:22] LABS: Base Excess -2.0 mmol/L (-2.0-3.0)
--- NOTE | 2025-04-06 10:40 | DVHPN2 ---
Progress Note Date Seen: Apr 06, 2025 Medical Necessity Reason Pt with a Central, PICC or Fol: Yes The following are medically ne: Central Line, Roach Catheter Subjective Review of Systems: RESPIRATORY:Abnormal Other Systems: Patient seen and examined by myself today in follow-up, patient remained intubated on ventilator Objective vital signs Vital Sign Date Time Temp Pulse Resp B/P (MAP) Pulse Ox O2 Delivery O2 Flow Rate FiO2 04/06/25 10:10 75 22 136/60 (85) 96 40 04/06/25 08:00 Mechanical Ventilator+ 04/06/25 08:00 98.8 209.8 Total Intake and Output 04/05/25 04/05/25 04/06/25 15:00 23:00 07:00 Intake Total 1386.375 ml 1408.640 ml 1243.100 ml Output Total 2125 ml 1925 ml Balance 1386.375 ml -716.360 ml -681.900 ml medications Current Medications Medications Dose Ordered Sig/Niesha Route Start Time Stop Time Status Last Admin Dose Admin Propofol 100 ml @ 2.04 mls/hr Q24H IV 03/30/25 19:45 04/06/25 07:31 14.28 MLS/HR Ondansetron HCl 4 mg Q4HP PRN IV 03/31/25 00:45 Nitroglycerin 0.4 mg Q5MINP PRN SL 03/31/25 00:45 Morphine Sulfate 2 mg Q30M PRN IV 03/31/25 00:45 Albuterol 2.5 mg Q6HPRN PRN NEB 03/31/25 00:45 Pantoprazole Sodium 40 mg DAILY IV 03/31/25 10:00 04/06/25 09:57 40 MG Fentanyl Citrate 250 ml @ 2.5 mls/hr Q24H IV 03/31/25 07:45 04/05/25 23:57 27.5 MLS/HR Diagnostic Test (Pha) 1 strip IQ4HR 03/31/25 12:00 04/06/25 08:00 1 STRIP Insulin Human Regular IQ4HR SC 03/31/25 12:00 04/06/25 08:00 4 UNITS Dextrose 50 ml UD PRN IV 03/31/25 11:30 Meropenem 50 ml @ 17 mls/hr DAILY IV 04/01/25 10:00 UNV Meropenem 50 ml @ 17 mls/hr DAILY IV 04/01/25 10:00 04/06/25 10:01 17 MLS/HR Fluconazole 100 ml @ 100 mls/hr DAILY IV 04/03/25 10:00 04/06/25 09:58 100 MLS/HR Calcium Acetate 667 mg TIDWMEALS PO 04/03/25 12:00 Hold 04/03/25 17:50 667 MG Calcium Acetate 1,334 mg TID NG 04/04/25 14:00 04/06/25 05:53 1,334 MG Dextrose/Sodium Chloride 1,000 ml @ 100 mls/hr Q10H IV 04/04/25 10:45 04/05/25 23:56 100 MLS/HR Norepinephrine Bitartrate 250 ml @ 0.938 mls/ hr Q24H IV 04/04/25 11:15 04/05/25 09:42 3.75 MLS/HR Enteral Nutritional Formula 1,000 ml 50ML/HR GT 04/04/25 12:30 04/04/25 16:47 1,000 ML Enoxaparin Sodium 30 mg DAILY SC 04/05/25 10:00 04/06/25 09:58 30 MG Dopamine HCl/ Dextrose 250 ml @ 5.625 mls/ hr Q24H IV 04/05/25 09:30 04/05/25 11:48 5.625 MLS/HR Examination: LUNGS:Normal, CVS:Normal, MSK:Normal laboratory and microbiology Laboratory Tests 04/06/25 04:41 Test 04/06/25 04:41 Range/Units Serum Glucose 232 H 74-106 mg/dL Microbiology Date/Time Source Procedure Growth Status 04/02/25 17:38 Bronchial Washings Gram Stain - Final Resulted 04/02/25 17:38 Bronchial Washings Respiratory Culture - Preliminary Resulted 03/31/25 17:30 Nose MRSA Screen - Final Complete 03/30/25 21:30 Voided Urine Urine Culture - Final Yeast, not Janna albicans Complete 03/30/25 18:38 Blood Blood Culture - Final NO GROWTH AFTER 5 DAYS OF INCUBATION. Complete Problem List/Assessment/Plan Problem List/Assessment/Plan Acute kidney injury superimposed Chronic Kidney Disease secondary hemodynamic mediated, FeNa <1% Septic shock Vancomycin toxicity Ventilator-dependent hypoxic respiratory failure Anion gap metabolic acidosis with respiratory acidosis in the setting of lactic acidosis plus ketosis UDS positive for fentanyl and benzos Diabetes mellitus type 2 bka hypokalemia hypocalcemia hyperphosphatemia Hypomagnesemia Anemia of chronic kidney disease Recommendations Kidney function continues to improve Increased urine output Strict I&Os DC vancomycin Kidney ultrasound reported within normal limit Low-dose dopamine Calcium acetate 667 mg NG tube 3 times daily Magnesium sulfate IV piggyback IV pressors for blood pressure support Insulin sliding scale We will continue to follow Plan discussed with: Other (Nurse) Dietary Evaluation Review Comments: Nutrition Recommendation; 1) TF Vital HP @ 50ml/hr. Start @ 20ml/hr, increase 10ml/hr Q4H until goal is reached. TF @ goal volume along with propofol & IVF D5w/NS 0.45% provides 1937 kcal (100% energy needs), 105 gm protein (100% protein needs), 1003 ml free water. 2) Water flush 150ml Q4H 3) TPN if NPO > 7 days 4) Monitor NPO status, lab values, wt trend, I/O Expected Outcomes/Goals: To meet at least 75% estimated needs within 7 days FU 2-3 days RA CARCAMO MD Apr 06, 2025 10:40
[2025-04-06] MEDS: CALCIUM ACETATE 667 MG CAP NG SCH (10:45)
[2025-04-06] MEDS: MAGNESIUM SULFATE 1GM/100ML 100 ML IV SCH ×2 (11:00→18:07)
--- NOTE | 2025-04-06 13:41 | DVHPN2 ---
Progress Note - Dictate Date Seen: Apr 06, 2025 Medical Necessity Reason Pt with a Central, PICC or Fol: Yes The following are medically ne: Central Line, Roach Catheter vital signs Vital Sign Date Time Temp Pulse Resp B/P (MAP) Pulse Ox O2 Delivery O2 Flow Rate FiO2 04/06/25 12:22 119/55 04/06/25 12:00 71 16 98 40 04/06/25 10:00 Mechanical Ventilator+ 04/06/25 08:00 98.8 209.8 Total Intake and Output 04/05/25 04/05/25 04/06/25 15:00 23:00 07:00 Intake Total 1386.375 ml 1408.640 ml 1243.100 ml Output Total 2125 ml 1925 ml Balance 1386.375 ml -716.360 ml -681.900 ml medications Current Medications Medications Dose Ordered Sig/Niesha Route Start Time Stop Time Status Last Admin Dose Admin Propofol 100 ml @ 2.04 mls/hr Q24H IV 03/30/25 19:45 04/06/25 12:22 14.28 MLS/HR Ondansetron HCl 4 mg Q4HP PRN IV 03/31/25 00:45 Nitroglycerin 0.4 mg Q5MINP PRN SL 03/31/25 00:45 Morphine Sulfate 2 mg Q30M PRN IV 03/31/25 00:45 Albuterol 2.5 mg Q6HPRN PRN NEB 03/31/25 00:45 Pantoprazole Sodium 40 mg DAILY IV 03/31/25 10:00 04/06/25 09:57 40 MG Fentanyl Citrate 250 ml @ 2.5 mls/hr Q24H IV 03/31/25 07:45 04/06/25 12:22 20 MLS/HR Diagnostic Test (Pha) 1 strip IQ4HR 03/31/25 12:00 04/06/25 11:35 1 STRIP Insulin Human Regular IQ4HR SC 03/31/25 12:00 04/06/25 12:20 3 UNITS Dextrose 50 ml UD PRN IV 03/31/25 11:30 Meropenem 50 ml @ 17 mls/hr DAILY IV 04/01/25 10:00 UNV Fluconazole 100 ml @ 100 mls/hr DAILY IV 04/03/25 10:00 04/06/25 09:58 100 MLS/HR Dextrose/Sodium Chloride 1,000 ml @ 100 mls/hr Q10H IV 04/04/25 10:45 04/06/25 12:24 100 MLS/HR Norepinephrine Bitartrate 250 ml @ 0.938 mls/ hr Q24H IV 04/04/25 11:15 04/05/25 09:42 3.75 MLS/HR Enteral Nutritional Formula 1,000 ml 50ML/HR GT 04/04/25 12:30 04/04/25 16:47 1,000 ML Enoxaparin Sodium 30 mg DAILY SC 04/05/25 10:00 04/06/25 09:58 30 MG Dopamine HCl/ Dextrose 250 ml @ 5.625 mls/ hr Q24H IV 04/05/25 09:30 04/05/25 11:48 5.625 MLS/HR Calcium Acetate 667 mg TID NG 04/06/25 10:45 Meropenem 50 ml @ 17 mls/hr Q12H IV 04/06/25 22:00 laboratory and microbiology Laboratory Tests 04/06/25 04:41 Test 04/06/25 04:41 Range/Units Serum Glucose 232 H 74-106 mg/dL Assessment/Plan Impression Acute hypoxemic respiratory failure Pneumonia Atelectasis Sepsis Patient seen and examined in MARIELA Events On mechanical ventilation S/p intubation PEEP 5, FiO2 30% S/p bronchoscopy Bronchial washings negative to date Labs and imaging reviewed ABG reviewed Management Vent support Titrate to maintain sats 90% or above Sedation holiday daily If patient follows commands, proceed to weaning trial Pressure support 04/19, extubate when ready Continue antibiotics F/u cultures Bronchodilators Monitor renal function Monitor electrolytes Supplement as needed Pressors as needed for hemodynamic support To maintain a mean arterial pressure of 65 mmHg Nutritional support DVT prophylaxis Critical care time 35 minutes Dietary Evaluation Review Comments: Nutrition Recommendation; 1) TF Vital HP @ 50ml/hr. Start @ 20ml/hr, increase 10ml/hr Q4H until goal is reached. TF @ goal volume along with propofol & IVF D5w/NS 0.45% provides 1937 kcal (100% energy needs), 105 gm protein (100% protein needs), 1003 ml free water. 2) Water flush 150ml Q4H 3) TPN if NPO > 7 days 4) Monitor NPO status, lab values, wt trend, I/O Expected Outcomes/Goals: To meet at least 75% estimated needs within 7 days FU 2-3 days Plan discussed with: Other (Rn) EVELINE BAUMANN MD Apr 06, 2025 13:41
--- NOTE | 2025-04-06 15:54 | DVHPN2 ---
Assessment/Plan Assessment/Plan ICU note covering off pressors. abg wnl, in sync with vent. residual in NGT, tube feeding held. QTC 517 on ekg. giving mag. if improving, will consider using reglan. likely from gastroparesis physical exam sedated, intubated and mechanically ventilated PERRLA MMM s1 s2 rrr mechanical breath sounds abdomen soft trace LE edema labs ekg imaging reviewed assessment and plan acute hypoxic respiratory failure resp alkalosis septic shock pna gp gn law atn on ckd toxic metabolic encephalopathy hx CVA schizophrenia? cirrhosis DKA resolved UTI anemia chornic disease gastroparesis? adjust tv to lung protective vent c/w mechanical vent c/w diuresis goal neg 500- 1L net replete lytes c/w Diflucan, meropenem c/w pressor, maintain MAP >70 daily SAT SBT diet TF dvt ppx lovenox gi ppx protonix condition critical prognosis poor full code critical care time 60 minutes Plan discussed with: Other My Orders Orders - MING MIRANDA MD Procedure Category Date Status Time Electrocardigram EKG 04/06/25 Logged 13:21 Basic Metabolic Panel LAB 04/07/25 Verified 04:00 Complete Blood Count LAB 04/07/25 Verified 04:00 Magnesium LAB 04/07/25 Verified 04:00 Phosphorus LAB 04/07/25 Verified 04:00 Date of Service: Apr 06, 2025 Billing Provider: MING MIRANDA MD Common Visit Codes: [id number] CARE 30-74 MIN MING MIRANDA MD Apr 06, 2025 15:54
[2025-04-06] MEDS: PROPOFOL 100 ML IV SCH (20:45)
[2025-04-06] MEDS: MEROPENEM 500MG IVPB 50 ML IV SCH (21:28)
[2025-04-07] VITALS (119 sets, daily range): BP systolic 76–148; BP diastolic 42–79; PULSE 60–134; RESP 12–27; TEMP 96.6–100.8; O2SAT 88–100
[2025-04-07 05:17] LABS: Hematocrit 27.7 % (41.0-53.0); Hemoglobin 9.2 g/dL (13.5-17.5); Mean Corpuscular Hemoglobin 27.9 pg (28.0-32.0); Mean Corpuscular Volume 83.8 fL (80.0-100.0); Nucleated Red Blood Cells % 0.2 %
[2025-04-07 05:29] LABS: Chloride 105 mmol/L (98-107); Potassium 3.5 mmol/L (3.5-5.1); Sodium 140 mmol/L (136-145)
[2025-04-07 05:30] LABS: Anion Gap 11 (5-15); Carbon Dioxide 24 mmol/L (20-31)
[2025-04-07 05:35] LABS: BUN/Creatinine Ratio 9.6 (10.0-20.0); Blood Urea Nitrogen 22 mg/dL (9-23)
[2025-04-07 05:36] LABS: Magnesium 2.3 mg/dL (1.6-2.6)
[2025-04-07 05:46] LABS: Calcium 7.6 mg/dL (8.7-10.4); Glucose 223 mg/dL (74-106)
[2025-04-07 06:55] LABS: Base Excess -1.7 mmol/L (-2.0-3.0)
--- NOTE | 2025-04-07 07:57 | ECG ---
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
--- NOTE | 2025-04-07 08:05 | DVH ---
EXAM: XR Chest, 1 View CLINICAL INDICATION: Pain TECHNIQUE: Frontal view of the chest. COMPARISON: No relevant prior studies available. FINDINGS: LUNGS AND PLEURAL SPACES: See below. HEART: Cardiomegaly with pulmonary congestion and edema. Superimposed pneumonia cannot be excluded. MEDIASTINUM: Unremarkable. Normal mediastinal contour. BONES/JOINTS: Unremarkable. No acute fracture. TUBES, LINES AND DEVICES: The endotracheal tube (ETT) is in satisfactory position. Enteric tube tip in the stomach. IMPRESSION: Cardiomegaly with pulmonary congestion and edema. Superimposed pneumonia cannot be excluded.
--- NOTE | 2025-04-07 10:06 | DVHPN2 ---
Progress Note Date Seen: Apr 07, 2025 Medical Necessity Reason Pt with a Central, PICC or Fol: Yes The following are medically ne: Central Line, Roach Catheter Subjective Review of Systems: RESPIRATORY:Abnormal Other Systems: Patient seen and examined by myself today in follow-up, patient remained intubated on ventilator Objective vital signs Vital Sign Date Time Temp Pulse Resp B/P (MAP) Pulse Ox O2 Delivery O2 Flow Rate FiO2 04/07/25 09:45 98.6 69 16 102/52 (69) 95 209.5 04/07/25 09:02 30 04/07/25 08:00 Mechanical Ventilator+ Total Intake and Output 04/06/25 04/06/25 04/07/25 15:00 23:00 07:00 Intake Total 1466.740 ml 1219.277 ml 980.690 ml Output Total 2800 ml 2300 ml Balance 1466.740 ml -1580.723 ml -1319.310 ml medications Current Medications Medications Dose Ordered Sig/Niesha Route Start Time Stop Time Status Last Admin Dose Admin Ondansetron HCl 4 mg Q4HP PRN IV 03/31/25 00:45 Nitroglycerin 0.4 mg Q5MINP PRN SL 03/31/25 00:45 Morphine Sulfate 2 mg Q30M PRN IV 03/31/25 00:45 Albuterol 2.5 mg Q6HPRN PRN NEB 03/31/25 00:45 Pantoprazole Sodium 40 mg DAILY IV 03/31/25 10:00 04/07/25 08:50 40 MG Fentanyl Citrate 250 ml @ 2.5 mls/hr Q24H IV 03/31/25 07:45 04/07/25 08:49 10 MLS/HR Diagnostic Test (Pha) 1 strip IQ4HR 03/31/25 12:00 04/07/25 08:44 1 STRIP Insulin Human Regular IQ4HR SC 03/31/25 12:00 04/07/25 08:49 3 UNITS Dextrose 50 ml UD PRN IV 03/31/25 11:30 Meropenem 50 ml @ 17 mls/hr DAILY IV 04/01/25 10:00 UNV Fluconazole 100 ml @ 100 mls/hr DAILY IV 04/03/25 10:00 04/07/25 08:44 100 MLS/HR Dextrose/Sodium Chloride 1,000 ml @ 100 mls/hr Q10H IV 04/04/25 10:45 04/07/25 08:44 100 MLS/HR Norepinephrine Bitartrate 250 ml @ 0.938 mls/ hr Q24H IV 04/04/25 11:15 04/07/25 04:28 1.875 MLS/HR Enteral Nutritional Formula 1,000 ml 50ML/HR GT 04/04/25 12:30 04/04/25 16:47 1,000 ML Enoxaparin Sodium 30 mg DAILY SC 04/05/25 10:00 04/07/25 08:50 30 MG Dopamine HCl/ Dextrose 250 ml @ 5.625 mls/ hr Q24H IV 04/05/25 09:30 04/07/25 04:28 5.625 MLS/HR Calcium Acetate 667 mg TID NG 04/06/25 10:45 Meropenem 50 ml @ 17 mls/hr Q12H IV 04/06/25 22:00 04/07/25 09:54 17 MLS/HR Propofol 100 ml @ 2.25 mls/hr Q24H IV 04/06/25 20:45 04/07/25 01:53 15.75 MLS/HR Examination: LUNGS:Normal, CVS:Normal, MSK:Normal laboratory and microbiology Laboratory Tests 04/07/25 04:43 Test 04/07/25 04:43 Range/Units Serum Glucose 223 H 74-106 mg/dL Microbiology Date/Time Source Procedure Growth Status 04/02/25 17:38 Bronchial Washings Gram Stain - Final Complete 04/02/25 17:38 Bronchial Washings Respiratory Culture - Final Complete 03/31/25 17:30 Nose MRSA Screen - Final Complete 03/30/25 21:30 Voided Urine Urine Culture - Final Yeast, not Janna albicans Complete 03/30/25 18:38 Blood Blood Culture - Final NO GROWTH AFTER 5 DAYS OF INCUBATION. Complete Problem List/Assessment/Plan Problem List/Assessment/Plan Acute kidney injury superimposed Chronic Kidney Disease secondary hemodynamic mediated, FeNa >2% Ventilator-dependent hypoxic respiratory failure Septic shock Vancomycin toxicity UDS positive for fentanyl and benzos Diabetes mellitus type 2 bka hypokalemia hypocalcemia hyperphosphatemia Hypomagnesemia Anemia of chronic kidney disease Recommendations Kidney function continues to improve Increased urine output Strict I&Os DC vancomycin Kidney ultrasound reported within normal limit Discontinue Low-dose dopamine Calcium acetate 667 mg NG tube 3 times daily Magnesium sulfate IV piggyback Insulin sliding scale We will continue to follow Plan discussed with: Other (Nurse) My Orders My Orders Orders - RA CARCAMO MD Procedure Category Date Status Time Calcium Acetate PHA 04/06/25 In Process Capsule (Phoslo 10:45 Dietary Evaluation Review Comments: Nutrition Recommendation; 1) TF Vital HP @ 50ml/hr. Start @ 20ml/hr, increase 10ml/hr Q4H until goal is reached. TF @ goal volume along with propofol & IVF D5w/NS 0.45% provides 1937 kcal (100% energy needs), 105 gm protein (100% protein needs), 1003 ml free water. 2) Water flush 150ml Q4H 3) TPN if NPO > 7 days 4) Monitor NPO status, lab values, wt trend, I/O Expected Outcomes/Goals: To meet at least 75% estimated needs within 7 days FU 2-3 days RA CARCAMO MD Apr 07, 2025 10:06
[2025-04-07] MEDS: POTASSIUM CHL 20MEQ/100ML 100 ML IV SCH (12:08)
--- NOTE | 2025-04-07 14:01 | DVHPNRES ---
Progress Note Date Seen: Apr 07, 2025 Resident Creating Document: ERICK PARRISH MD Medical Necessity Reason Pt with a Central, PICC or Fol: Yes The following are medically ne: Central Line, Roach Catheter Medical Necessity Reason Seen and examined at the bedside today. He seems to be opening his eyes to his name. According to the nurse whenever she tries lowering the sedative a little bit, patient became a little agitated trying to pull out tubes and was not responding to command at the time. Labs this morning shows continuos improvement in the renal function. Nephrology saw patient and decided to not make any changes Subjective Review of Systems sedated!!! Objective vital signs Vital Sign Date Time Temp Pulse Resp B/P (MAP) Pulse Ox O2 Delivery O2 Flow Rate FiO2 04/07/25 12:45 99.0 81 18 111/60 (77) 93 210.2 04/07/25 12:00 Mechanical Ventilator+ 30 30 Total Intake and Output 04/06/25 04/06/25 04/07/25 15:00 23:00 07:00 Intake Total 1466.740 ml 1219.277 ml 980.690 ml Output Total 2800 ml 2300 ml Balance 1466.740 ml -1580.723 ml -1319.310 ml medications Current Medications Medications Dose Ordered Sig/Niesha Route Start Time Stop Time Status Last Admin Dose Admin Ondansetron HCl 4 mg Q4HP PRN IV 03/31/25 00:45 Nitroglycerin 0.4 mg Q5MINP PRN SL 03/31/25 00:45 Morphine Sulfate 2 mg Q30M PRN IV 03/31/25 00:45 Albuterol 2.5 mg Q6HPRN PRN NEB 03/31/25 00:45 Pantoprazole Sodium 40 mg DAILY IV 03/31/25 10:00 04/07/25 08:50 40 MG Fentanyl Citrate 250 ml @ 2.5 mls/hr Q24H IV 03/31/25 07:45 04/07/25 08:49 10 MLS/HR Diagnostic Test (Pha) 1 strip IQ4HR 03/31/25 12:00 04/07/25 11:43 1 STRIP Insulin Human Regular IQ4HR SC 03/31/25 12:00 04/07/25 11:55 3 UNITS Dextrose 50 ml UD PRN IV 03/31/25 11:30 Meropenem 50 ml @ 17 mls/hr DAILY IV 04/01/25 10:00 UNV Fluconazole 100 ml @ 100 mls/hr DAILY IV 04/03/25 10:00 04/07/25 08:44 100 MLS/HR Dextrose/Sodium Chloride 1,000 ml @ 100 mls/hr Q10H IV 04/04/25 10:45 04/07/25 08:44 100 MLS/HR Norepinephrine Bitartrate 250 ml @ 0.938 mls/ hr Q24H IV 04/04/25 11:15 04/07/25 04:28 1.875 MLS/HR Enteral Nutritional Formula 1,000 ml 50ML/HR GT 04/04/25 12:30 04/04/25 16:47 1,000 ML Enoxaparin Sodium 30 mg DAILY SC 04/05/25 10:00 04/07/25 08:50 30 MG Calcium Acetate 667 mg TID NG 04/06/25 10:45 Meropenem 50 ml @ 17 mls/hr Q12H IV 04/06/25 22:00 04/07/25 09:54 17 MLS/HR Propofol 100 ml @ 2.25 mls/hr Q24H IV 04/06/25 20:45 04/07/25 11:39 9 MLS/HR Potassium Chloride 100 ml @ 50 mls/hr Q2H IV 04/07/25 11:00 04/07/25 14:59 04/07/25 12:08 50 MLS/HR Examination General Appearance: mildly Sedated and intubated;sedation vacation HEENT: Atraumatic, Respiratory: fair air entry bilateral Cardiovascular: Tachycardia, Normal S1, Normal S2, No murmurs, no chest wall tenderness Abdominal: NO distention, Extremities: No clubbing, No cyanosis, No edema, Normal pulses, No tenderness/swelling, right lower limb amputated Skin: No rashes, No breakdown, No significant lesion Neuro: unable to access Psych/Mental Status: Unable to access laboratory and microbiology Laboratory Tests 04/07/25 04:43 Test 04/07/25 04:43 Range/Units Serum Glucose 223 H 74-106 mg/dL Microbiology Date/Time Source Procedure Growth Status 04/02/25 17:38 Bronchial Washings Gram Stain - Final Complete 04/02/25 17:38 Bronchial Washings Respiratory Culture - Final Complete 03/31/25 17:30 Nose MRSA Screen - Final Complete 03/30/25 21:30 Voided Urine Urine Culture - Final Yeast, not Janna albicans Complete 03/30/25 18:38 Blood Blood Culture - Final NO GROWTH AFTER 5 DAYS OF INCUBATION. Complete Problem List/Assessment/Plan Problem List/Assessment/Plan Assessment and plan Neuro: Metabolic encephalopathy Uremic encephalopathy Hypoglycemia History of CVA Schizophrenia - CT head: No acute intracranial abnormality. - Treat the underlying problem: infection, hypoglycemia and electrolytes, abnormalities Respiratory: Acute hypoxic respiratory failure Possible pneumonia gram-/gram+ Increased anion gap metabolic acidosis CXR: Bibasilar areas of atelectasis or airspace disease S/p bronchoscopy 04/02/2025,final result pending - Intubated and on mechanical ventilation - mechanical ventilation - Bicarb 7 received, discontinued 04/01/2025 - Meropenem - Fluconazole Cardiology: Cardiomegaly with mild congestion. Gastrointestinal Liver Cirrhosis Transaminitis Ammonia < 10 - Monitor LFT closely Genitourinary: Acute Kidney failure likely due to VMN-Improving Acute kidney injury likely ischemic ATN in the setting of shock Good amount of urine made Rhabdomyolysis D5W in .45 NS at 75mls/hr Nephrology following Metabolic/Endocrine DKA, Hypoglycemia/Hyperglycemia--> Improving hyperkalemia Hyperphosphatemia hypomagnesemia - replaced electrolytes Infectious Disease Severe sepsis with septic shock Urinary track infection, Urine culture: >100,000 CFU/mL Yeast Identification to follow. Leukocytosis trending down Lactic acidosis-improving Hypothermic on admission Blood culture: No growth as of yet Antibiotics: Meropenem and vancomycin per pharmacy Fluids D5W with bicarb at 25mls/hr stoped Bicarb ( 7 amps total received now) Hematology Normocytic anemia Thrombocytosis likely due sepsis; Plt improved - Monitor the labs daily - Treat the underlying infections Polysubstance use Fentanyl and benzodiazepine OTHER medical -noncompliance IV access: Central line: right subclavian 03/30/2025 Drips: Levophed,Fentanyl and Propofol discontinued Diet: TF vitals 50ml/hr DVT prophylaxis: lovenox 30mg daily Antibiotics: Ceftriaxone ( Discontinued 03/31/2025); Vancomycin ( ); meropenem and fluconazole Roach catheter present 03/30/2025 PLAN: extubated today 04/07/2025 at 15;15 Continuous monitoring. Calcium acetate 667 mg NG tube 3 times daily Magnesium sulfate IV piggyback Zofran for nausea Disposition: MARIELA Goal of care discussed with Nurse and family member Critical care time: 35 minutes Family member contacted. Case discussed with Dr. Maria, Plan discussed with: Other (Nurse) Dietary Evaluation Review Comments: Nutrition Recommendation; 1) TF Vital HP @ 50ml/hr. Start @ 20ml/hr, increase 10ml/hr Q4H until goal is reached. TF @ goal volume along with propofol & IVF D5w/NS 0.45% provides 1937 kcal (100% energy needs), 105 gm protein (100% protein needs), 1003 ml free water. 2) Water flush 150ml Q4H 3) TPN if NPO > 7 days 4) Monitor NPO status, lab values, wt trend, I/O Expected Outcomes/Goals: To meet at least 75% estimated needs within 7 days FU 2-3 days Date of Service: Apr 07, 2025 Billing Provider: EVELINE MARIA MD Common Visit Codes: NOT BILLABLE ERICK SILVESTRE RESIDENT Apr 07, 2025 14:01 EVELINE MARIA MD Apr 08, 2025 13:57
[2025-04-07 15:04] LABS: Base Excess -4.3 mmol/L (-2.0-3.0)
--- NOTE | 2025-04-07 15:57 | ECG ---
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
[2025-04-07] MEDS: FUROSEMIDE 40 MG/4 ML VIAL IV ONE (17:25)
[2025-04-07] MEDS: ONDANSETRON HCL 4 MG/2 ML VIAL IV PRN (17:25)
[2025-04-07] MEDS: IPRATROPIUM BROM 0.5 MG/2.5ML INH SOL NEB SCH (18:37)
[2025-04-07] MEDS: ALBUTEROL SULF 2.5 MG/0.5ML(0.5%) NEB SOLN NEB SCH (18:37)
[2025-04-07] MEDS ORDERED: METOCLOPRAMIDE HCL 5MG/ml INJ 2ml VIAL IV PRN ×3 (20:45→23:15)
[2025-04-07] MEDS: METOCLOPRAMIDE HCL 5MG/ml INJ 2ml VIAL IV ONE ×2 (21:17→23:38)
[2025-04-07] MEDS: MEROPENEM 1GM IVPB 50 ML IV SCH (21:51)
[2025-04-08] VITALS (112 sets, daily range): BP systolic 97–135; BP diastolic 52–73; PULSE 101–135; RESP 10–24; TEMP 96.8–100.8; O2SAT 89–99
[2025-04-08] MEDS: ACETAMINOPHEN 325 MG RECT SUPP PR PRN (01:08)
--- NOTE | 2025-04-08 04:10 | DVH ---
EXAM: XY CHEST PORTABLE HISTORY: NGT PLACEMENT COMPARISON: XY CHEST PORTABLE on DOS: 04/07/25, XY CHEST PORTABLE on DOS: 04/06/25, XY CHEST PORTABLE o n DOS: 04/05/25, XY CHEST PORTABLE on DOS: 04/04/25, XY CHEST XRAY 1 VIEW on DOS: 04/03/25 TECHNIQUE: Portable upright AP view of the chest was performed. FINDINGS: NG tube is identified with its tip in the stomach about 19 cm distal to the GE junction. Right subcla vian central line is identified with its tip in the right atrium. There are diffuse bilateral interst itial opacities, greatest centrally and in the lung bases. There are patchy confluent opacities in t he left lung base. No pneumothorax. The heart is enlarged. IMPRESSION: 1. NG tube is in the stomach. 2. Cardiomegaly and interstitial opacities suggestive of CHF. Additionally, there is patchy opacity in the left lung base which may represent atelectasis or pneumonia.
--- NOTE | 2025-04-08 05:01 | DVH ---
EXAM: XY KUB ABDOMEN SINGLE VIEW HISTORY: ABDOMINAL PAIN COMPARISON: Chest x-ray from earlier same day TECHNIQUE: Supine AP view of the left upper abdomen was performed. It should be noted that the film is hung and labeled backwards. FINDINGS/IMPRESSION: 1. NG tube tip is in the stomach 19 cm distal to the GE junction. 2. No evidence of bowel obstruction. 3. Cardiomegaly and bilateral lung base opacities, greater on the left. These are better characterize d on recent chest x-ray.
[2025-04-08 05:10] LABS: Hematocrit 28.1 % (41.0-53.0); Hemoglobin 9.4 g/dL (13.5-17.5); Mean Corpuscular Hemoglobin 27.9 pg (28.0-32.0); Mean Corpuscular Volume 83.8 fL (80.0-100.0); Nucleated Red Blood Cells % 0.0 %
[2025-04-08 05:24] LABS: Alanine Aminotransferase 29 U/L (7-40); Anion Gap 13 (5-15); BUN/Creatinine Ratio 10.5 (10.0-20.0); Carbon Dioxide 23 mmol/L (20-31); Chloride 104 mmol/L (98-107); Potassium 4.6 mmol/L (3.5-5.1); Sodium 140 mmol/L (136-145); Total Protein 6.1 g/dL (5.7-8.2)
[2025-04-08 05:42] LABS: Albumin 3.1 g/dL (3.2-4.8); Alkaline Phosphatase 120 U/L (46-116); Bilirubin, Total 0.2 mg/dL (0.2-1.0); Blood Urea Nitrogen 24 mg/dL (9-23); Calcium 8.0 mg/dL (8.7-10.4); Glucose 259 mg/dL (74-106)
--- NOTE | 2025-04-08 08:16 | ECG ---
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
--- NOTE | 2025-04-08 11:00 | DVHPN2 ---
Progress Note Date Seen: Apr 08, 2025 Medical Necessity Reason Pt with a Central, PICC or Fol: Yes The following are medically ne: Central Line, Roach Catheter Subjective Patient reports: No new complaints Other Systems: Patient seen and examined by myself today in follow-up Objective vital signs Vital Sign Date Time Temp Pulse Resp B/P (MAP) Pulse Ox O2 Delivery O2 Flow Rate FiO2 04/08/25 10:01 118 18 97 04/08/25 09:54 Oxymizer 3.0 04/08/25 09:54 60 60 04/08/25 07:00 100.0 97/57 (70) 212.0 Total Intake and Output 04/07/25 04/07/25 04/08/25 15:00 23:00 07:00 Intake Total 1468.564 ml 795.939 ml 820.626 ml Output Total 1150 ml 1900 ml Balance 1468.564 ml -354.061 ml -1079.374 ml medications Current Medications Medications Dose Ordered Sig/Niesha Route Start Time Stop Time Status Last Admin Dose Admin Ondansetron HCl 4 mg Q4HP PRN IV 03/31/25 00:45 04/07/25 22:10 4 MG Nitroglycerin 0.4 mg Q5MINP PRN SL 03/31/25 00:45 Morphine Sulfate 2 mg Q30M PRN IV 03/31/25 00:45 Pantoprazole Sodium 40 mg DAILY IV 03/31/25 10:00 04/08/25 10:11 40 MG Fentanyl Citrate 250 ml @ 2.5 mls/hr Q24H IV 03/31/25 07:45 04/07/25 08:49 10 MLS/HR Diagnostic Test (Pha) 1 strip IQ4HR 03/31/25 12:00 04/08/25 08:24 1 STRIP Insulin Human Regular IQ4HR SC 03/31/25 12:00 04/08/25 08:25 4 UNITS Dextrose 50 ml UD PRN IV 03/31/25 11:30 Meropenem 50 ml @ 17 mls/hr DAILY IV 04/01/25 10:00 UNV Fluconazole 100 ml @ 100 mls/hr DAILY IV 04/03/25 10:00 04/08/25 10:11 100 MLS/HR Dextrose/Sodium Chloride 1,000 ml @ 100 mls/hr Q10H IV 04/04/25 10:45 04/07/25 08:44 100 MLS/HR Norepinephrine Bitartrate 250 ml @ 0.938 mls/ hr Q24H IV 04/04/25 11:15 04/07/25 04:28 1.875 MLS/HR Enteral Nutritional Formula 1,000 ml 50ML/HR GT 04/04/25 12:30 04/04/25 16:47 1,000 ML Enoxaparin Sodium 30 mg DAILY SC 04/05/25 10:00 04/08/25 10:11 30 MG Calcium Acetate 667 mg TID NG 04/06/25 10:45 Propofol 100 ml @ 2.25 mls/hr Q24H IV 04/06/25 20:45 04/07/25 11:39 9 MLS/HR Meropenem 50 ml @ 17 mls/hr Q12HR IV 04/07/25 22:00 04/07/25 21:51 17 MLS/HR Albuterol 2.5 mg Q4HR NEB 04/07/25 18:30 04/08/25 09:50 2.5 MG Ipratropium [place] 0.5 mg Q4HR NEB 04/07/25 22:00 04/08/25 09:50 0.5 MG Metoclopramide HCl 10 mg Q6HPRN PRN IV 04/07/25 22:45 UNV Acetaminophen 325 mg Q6HP PRN NH 04/07/25 23:00 04/08/25 01:08 325 MG Metoclopramide HCl 5 mg Q6HPRN PRN IV 04/07/25 23:15 Clindamycin Phosphate 50 ml @ 50 mls/hr Q8H IV 04/08/25 11:00 Examination: LUNGS:Normal, CVS:Normal, MSK:Normal laboratory and microbiology Laboratory Tests 04/08/25 04:33 Test 04/08/25 04:33 Range/Units Serum Glucose 259 H 74-106 mg/dL Microbiology Date/Time Source Procedure Growth Status 04/02/25 17:38 Bronchial Washings Gram Stain - Final Complete 04/02/25 17:38 Bronchial Washings Respiratory Culture - Final Complete 03/31/25 17:30 Nose MRSA Screen - Final Complete 03/30/25 21:30 Voided Urine Urine Culture - Final Yeast, not Janna albicans Complete 03/30/25 18:38 Blood Blood Culture - Final NO GROWTH AFTER 5 DAYS OF INCUBATION. Complete Problem List/Assessment/Plan Problem List/Assessment/Plan Acute kidney injury superimposed Chronic Kidney Disease secondary hemodynamic mediated, FeNa >2% Acute respiratory failure, extubated 04/07 Septic shock Vancomycin toxicity UDS positive for fentanyl and benzos Diabetes mellitus type 2 bka hypokalemia hypocalcemia hyperphosphatemia Hypomagnesemia Anemia of chronic kidney disease Recommendations Kidney function continues to improve Increased urine output Strict I&Os DC vancomycin Kidney ultrasound reported within normal limit Discontinue Low-dose dopamine Calcium acetate 667 mg NG tube 3 times daily Magnesium sulfate IV piggyback Insulin sliding scale We will continue to follow Plan discussed with: Patient Dietary Evaluation Review Comments: Nutrition Recommendation; 1) TF Vital HP @ 50ml/hr. Start @ 20ml/hr, increase 10ml/hr Q4H until goal is reached. TF @ goal volume along with propofol & IVF D5w/NS 0.45% provides 1937 kcal (100% energy needs), 105 gm protein (100% protein needs), 1003 ml free water. 2) Water flush 150ml Q4H 3) TPN if NPO > 7 days 4) Monitor NPO status, lab values, wt trend, I/O Expected Outcomes/Goals: To meet at least 75% estimated needs within 7 days FU 2-3 days RA CARCAMO MD Apr 08, 2025 11:00
--- NOTE | 2025-04-08 15:20 | ECG ---
[facility] Test Date: 2025-04-07 Test Time: 20:40:57 Pat Name: LISA BENITES Department: Room: 0261 A Gender: M Take Up Operator: : [id number] Requested By: PRANAY YAN Order Number: [id number] Reading MD: Roshan Velasco Measurements Intervals [place] Rate: 120 P: 15 MT: 148 QRS: 23 QRSD: 68 T: 93 QT: 284 QTc: 401 Interpretive Statements Sinus tachycardia Low voltage QRS Nonspecific T wave abnormality Electronically Signed On 04-08-2025 22:19:17 PDT by Roshan Velasco Please click the below link to view image of tracing.
--- NOTE | 2025-04-08 16:32 | DVHPNRES ---
Progress Note Date Seen: Apr 08, 2025 Resident Creating Document: ERICK SILVESTRE RESIDENT Medical Necessity Reason Pt with a Central, PICC or Fol: Yes The following are medically ne: Central Line, Roach Catheter Medical Necessity Reason patient seen and examine. He is not in any acute respiratory distress. He was extubated yesterday. Upon extubation, patient was nauseous and vomited quiet a bit. He is currently on 4L oxygen on Oxymizer. cxr showed: patchy opacity in the left lung base which may represent atelectasis or pneumonia. will get KUB also to rule out any obstructions Subjective Review of Systems Constitutional: Denies fever no chills no feeling of malaise HEENT: Denies headache, ear pain, ear discharges, conjunctivitis, nasal discharge throat pain Cardiovascular: Denies chest pain, palpitation, orthopnea, PND, or pedal edema Respiratory: shortness of breath on oxymizer, cough GI: Denies abdominal pain, nausea, vomiting, diarrhea, hematemesis, hematochezia, : Denies frequency, urgency, hematuria, Endocrine: Denies unintentional weight gain or weight loss, feeling of hot flashes, Kvng: Denies easy bruising, bleeding disorders, epistaxis Musculoskeletal: in bed ad the moment Psych: unable to assess at the moment Objective vital signs Vital Sign Date Time Temp Pulse Resp B/P (MAP) Pulse Ox O2 Delivery O2 Flow Rate FiO2 04/08/25 16:00 108 04/08/25 16:00 16 97 Oxymizer 4 N/A 04/08/25 11:15 99.5 109/59 (76) 211.1 Total Intake and Output 04/07/25 04/07/25 04/08/25 15:00 23:00 07:00 Intake Total 1468.564 ml 795.939 ml 820.626 ml Output Total 1150 ml 1900 ml Balance 1468.564 ml -354.061 ml -1079.374 ml medications Current Medications Medications Dose Ordered Sig/Niesha Route Start Time Stop Time Status Last Admin Dose Admin Ondansetron HCl 4 mg Q4HP PRN IV 03/31/25 00:45 04/07/25 22:10 4 MG Nitroglycerin 0.4 mg Q5MINP PRN SL 03/31/25 00:45 Morphine Sulfate 2 mg Q30M PRN IV 03/31/25 00:45 Pantoprazole Sodium 40 mg DAILY IV 03/31/25 10:00 04/08/25 10:11 40 MG Fentanyl Citrate 250 ml @ 2.5 mls/hr Q24H IV 03/31/25 07:45 04/07/25 08:49 10 MLS/HR Diagnostic Test (Pha) 1 strip IQ4HR 03/31/25 12:00 04/08/25 12:37 1 STRIP Insulin Human Regular IQ4HR SC 03/31/25 12:00 04/08/25 12:37 4 UNITS Dextrose 50 ml UD PRN IV 03/31/25 11:30 Meropenem 50 ml @ 17 mls/hr DAILY IV 04/01/25 10:00 UNV Fluconazole 100 ml @ 100 mls/hr DAILY IV 04/03/25 10:00 04/08/25 10:11 100 MLS/HR Dextrose/Sodium Chloride 1,000 ml @ 100 mls/hr Q10H IV 04/04/25 10:45 04/08/25 08:00 100 MLS/HR Norepinephrine Bitartrate 250 ml @ 0.938 mls/ hr Q24H IV 04/04/25 11:15 04/07/25 04:28 1.875 MLS/HR Enteral Nutritional Formula 1,000 ml 50ML/HR GT 04/04/25 12:30 04/04/25 16:47 1,000 ML Enoxaparin Sodium 30 mg DAILY SC 04/05/25 10:00 04/08/25 10:11 30 MG Calcium Acetate 667 mg TID NG 04/06/25 10:45 Propofol 100 ml @ 2.25 mls/hr Q24H IV 04/06/25 20:45 04/07/25 11:39 9 MLS/HR Meropenem 50 ml @ 17 mls/hr Q12HR IV 04/07/25 22:00 04/08/25 11:30 17 MLS/HR Albuterol 2.5 mg Q4HR NEB 04/07/25 18:30 04/08/25 14:15 2.5 MG Ipratropium [place] 0.5 mg Q4HR NEB 04/07/25 22:00 04/08/25 14:15 0.5 MG Metoclopramide HCl 10 mg Q6HPRN PRN IV 04/07/25 22:45 UNV Acetaminophen 325 mg Q6HP PRN DC 04/07/25 23:00 04/08/25 01:08 325 MG Metoclopramide HCl 5 mg Q6HPRN PRN IV 04/07/25 23:15 Clindamycin Phosphate 50 ml @ 50 mls/hr Q8H IV 04/08/25 11:00 Examination General Appearance:s/p extubated; on oxymizer HEENT: Atraumatic, Respiratory: fair air entry bilateral Cardiovascular: Tachycardia, Normal S1, Normal S2, No murmurs, no chest wall tenderness Abdominal: NO distention, Extremities: No clubbing, No cyanosis, No edema, Normal pulses, No tenderness/swelling, right lower limb amputated Skin: No rashes, No breakdown, No significant lesion Neuro: unable to access Psych/Mental Status: Unable to access laboratory and microbiology Laboratory Tests 04/08/25 04:33 Test 04/08/25 04:33 Range/Units Serum Glucose 259 H 74-106 mg/dL Microbiology Date/Time Source Procedure Growth Status 04/02/25 17:38 Bronchial Washings Gram Stain - Final Complete 04/02/25 17:38 Bronchial Washings Respiratory Culture - Final Complete 03/31/25 17:30 Nose MRSA Screen - Final Complete 03/30/25 21:30 Voided Urine Urine Culture - Final Yeast, not Janna albicans Complete 03/30/25 18:38 Blood Blood Culture - Final NO GROWTH AFTER 5 DAYS OF INCUBATION. Complete Problem List/Assessment/Plan Problem List/Assessment/Plan Assessment and plan Neuro: Metabolic encephalopathy Uremic encephalopathy Hypoglycemia History of CVA Schizophrenia - CT head: No acute intracranial abnormality. - Treat the underlying problem: infection, hypoglycemia and electrolytes, abnormalities Respiratory: Acute hypoxic respiratory failure Possible pneumonia gram-/gram+ Increased anion gap metabolic acidosis CXR: Bibasilar areas of atelectasis or airspace disease S/p bronchoscopy 04/02/2025,final result pending ? Aspiration on chest x-ray: - Bicarb 7 received, discontinued 04/01/2025 - Meropenem - Fluconazole stop - Clindamycin 600mg tid 04/08/2025 initiated Cardiology: Cardiomegaly with mild congestion. Gastrointestinal Liver Cirrhosis Transaminitis Ammonia < 10 Nausea - Monitor LFT closely - Reglan 04/07/2025 Genitourinary: Acute Kidney failure likely due to VMN-Improving Acute kidney injury likely ischemic ATN in the setting of shock Good amount of urine made Rhabdomyolysis - D5W in .45 NS at 75mls/hr - Nephrology following Metabolic/Endocrine DKA, Hypoglycemia/Hyperglycemia--> Improving hyperkalemia Hyperphosphatemia hypomagnesemia - replaced electrolytes Infectious Disease Severe sepsis with septic shock Urinary track infection, Urine culture: >100,000 CFU/mL Yeast Identification to follow. Leukocytosis trending down Lactic acidosis-improving Hypothermic on admission Blood culture: No growth as of yet Antibiotics: Meropenem and vancomycin per pharmacy Fluids D5W with bicarb at 25mls/hr stoped Bicarb ( 7 amps total received now) Hematology Normocytic anemia Thrombocytosis likely due sepsis; Plt improved - Monitor the labs daily - Treat the underlying infections Polysubstance use Fentanyl and benzodiazepine OTHER medical -noncompliance IV access: Central line: right subclavian 03/30/2025 Drips: Levophed,Fentanyl and Propofol discontinued Diet: TF vitals 50ml/hr DVT prophylaxis: lovenox 30mg daily Antibiotics: Ceftriaxone ( Discontinued 03/31/2025); Vancomycin ( ); meropenem and clindamycin Roach catheter present 03/30/2025 PLAN: extubated 04/07/2025 at 15;15 Continuous monitoring. Calcium acetate 667 mg NG tube 3 times daily Magnesium sulfate IV piggyback Zofran for nausea clindamycin Disposition: MARIELA Goal of care discussed with Nurse and family member Critical care time: 35 minutes Family member contacted. Case discussed with Dr. Baumann, Plan discussed with: Patient My Orders My Orders Orders - ERICK SILVESTRE RESIDENT Procedure Category Date Status Time Apply Barrier Cream ARTUR 04/07/25 In Process 16:49 Clindamycin 600mg Iv PHA 04/08/25 In Process (Cleocin Iv) 11:00 * Swallow Request ST 04/08/25 Transmitted 15:20 Dietary Evaluation Review Comments: Nutrition Recommendation; 1) TF Vital HP @ 50ml/hr. Start @ 20ml/hr, increase 10ml/hr Q4H until goal is reached. TF @ goal volume along with propofol & IVF D5w/NS 0.45% provides 1937 kcal (100% energy needs), 105 gm protein (100% protein needs), 1003 ml free water. 2) Water flush 150ml Q4H 3) TPN if NPO > 7 days 4) Monitor NPO status, lab values, wt trend, I/O Expected Outcomes/Goals: To meet at least 75% estimated needs within 7 days FU 2-3 days Date of Service: Apr 08, 2025 Billing Provider: EVELINE BAUMANN MD Common Visit Codes: NOT BILLABLE ERICK SILVESTRE RESIDENT Apr 08, 2025 16:32 EVELINE BAUMANN MD Apr 14, 2025 17:59
[2025-04-08] MEDS: CLINDAMYCIN 600MG IV 50 ML IV SCH (16:56)
[2025-04-08] MEDS ORDERED: CLINIMIX PER PHARMACY 0 ML IV SCH (18:45)
[2025-04-08 18:53] LABS: Lipase 18 U/L (12-53)
[2025-04-08 19:06] LABS: Amylase 241 U/L (30-118)
--- NOTE | 2025-04-08 19:45 | DVH ---
CHEST XRAY: 1 view(s) was obtained HISTORY: rule out aspiration COMPARISON: XY CHEST PORTABLE on DOS: 04/08/25, XY CHEST PORTABLE on DOS: 04/07/25, XY CHEST PORTABLE o n DOS: 04/06/25, XY CHEST PORTABLE on DOS: 04/05/25, XY CHEST PORTABLE on DOS: 04/04/25 FINDINGS: Bibasilar patchy opacities. Obscuration in the left hemidiaphragm with blunting of the left costophre otis sulcus heart border is enlarged. Enteric tube terminates in the stomach. Right central line termi nates within the superior vena cava. IMPRESSION: 1. Bibasilar left greater than right opacities which may represent atelectasis or aspiration, new wit h compared to 1 day prior 2. Small left pleural fusion
[2025-04-08] MEDS ORDERED: DEXTROSE (50%) 50ML SYRG IV SCH (22:00)
[2025-04-08] MEDS: AMINO ACID INFUSION IN D10W 1,000 ML IV SCH (23:37)
[2025-04-08] MEDS: ACCU-CHEK COMFORT CURVE STRIP VI SCH (23:41)
[2025-04-08] MEDS: InsuLIN REG 1unit/0.01ml Soln (100units/ml) SC SCH (23:48)
[2025-04-09] VITALS (113 sets, daily range): BP systolic 123–157; BP diastolic 59–106; PULSE 96–117; RESP 10–28; TEMP 79.2–100.2; O2SAT 94–100
[2025-04-09 05:28] LABS: Hematocrit 25.8 % (41.0-53.0); Hemoglobin 8.6 g/dL (13.5-17.5); Mean Corpuscular Hemoglobin 28.4 pg (28.0-32.0); Mean Corpuscular Volume 84.8 fL (80.0-100.0); Nucleated Red Blood Cells % 0.1 %
[2025-04-09 05:45] LABS: Alanine Aminotransferase 27 U/L (7-40); Albumin 3.1 g/dL (3.2-4.8); Alkaline Phosphatase 110 U/L (46-116); Anion Gap 12 (5-15); BUN/Creatinine Ratio 13.9 (10.0-20.0); Blood Urea Nitrogen 24 mg/dL (9-23); Calcium 7.9 mg/dL (8.7-10.4); Carbon Dioxide 24 mmol/L (20-31); Chloride 106 mmol/L (98-107); Glucose 290 mg/dL (74-106); Magnesium 1.7 mg/dL (1.6-2.6); Potassium 4.2 mmol/L (3.5-5.1); Sodium 142 mmol/L (136-145); Total Protein 6.1 g/dL (5.7-8.2)
[2025-04-09 05:47] LABS: Bilirubin, Total 0.2 mg/dL (0.2-1.0)
[2025-04-09] MEDS: FLEET ENEMA(ADULT) 135 ML PR ONE (10:00)
[2025-04-09] MEDS: ACETYLCYSTEINE 10 %(100MG/ML) SOL 4ML NEB SCH (10:00)
[2025-04-09] MEDS: ACETYLCYSTEINE 10 %(100MG/ML) SOL 4ML ONE (10:25)
--- NOTE | 2025-04-09 11:49 | DVHPN2 ---
Progress Note Date Seen: Apr 09, 2025 Medical Necessity Reason Pt with a Central, PICC or Fol: Yes The following are medically ne: Central Line, Roach Catheter Subjective Patient reports: No new complaints Other Systems: Patient seen and examined by myself today in follow-up Objective vital signs Vital Sign Date Time Temp Pulse Resp B/P (MAP) Pulse Ox O2 Delivery O2 Flow Rate FiO2 04/09/25 11:45 99.9 109 19 129/59 (82) 97 211.8 04/09/25 10:23 Oxymizer 3.0 04/09/25 10:23 N/A Total Intake and Output 04/08/25 04/08/25 04/09/25 15:00 23:00 07:00 Intake Total 959.439 ml 530 ml 1087 ml Output Total 1450 ml 2000 ml Balance 959.439 ml -920 ml -913 ml medications Current Medications Medications Dose Ordered Sig/Niesha Route Start Time Stop Time Status Last Admin Dose Admin Ondansetron HCl 4 mg Q4HP PRN IV 03/31/25 00:45 04/07/25 22:10 4 MG Nitroglycerin 0.4 mg Q5MINP PRN SL 03/31/25 00:45 Pantoprazole Sodium 40 mg DAILY IV 03/31/25 10:00 04/09/25 10:27 40 MG Meropenem 50 ml @ 17 mls/hr DAILY IV 04/01/25 10:00 UNV Dextrose/Sodium Chloride 1,000 ml @ 100 mls/hr Q10H IV 04/04/25 10:45 04/08/25 22:00 100 MLS/HR Norepinephrine Bitartrate 250 ml @ 0.938 mls/ hr Q24H IV 04/04/25 11:15 04/07/25 04:28 1.875 MLS/HR Enteral Nutritional Formula 1,000 ml 50ML/HR GT 04/04/25 12:30 04/04/25 16:47 1,000 ML Enoxaparin Sodium 30 mg DAILY SC 04/05/25 10:00 04/09/25 10:27 30 MG Calcium Acetate 667 mg TID NG 04/06/25 10:45 04/09/25 05:38 667 MG Propofol 100 ml @ 2.25 mls/hr Q24H IV 04/06/25 20:45 04/07/25 11:39 9 MLS/HR Meropenem 50 ml @ 17 mls/hr Q12HR IV 04/07/25 22:00 04/09/25 10:27 17 MLS/HR Albuterol 2.5 mg Q4HR NEB 04/07/25 18:30 04/09/25 10:23 2.5 MG Ipratropium [place] 0.5 mg Q4HR NEB 04/07/25 22:00 04/09/25 10:23 0.5 MG Metoclopramide HCl 10 mg Q6HPRN PRN IV 04/07/25 22:45 UNV Acetaminophen 325 mg Q6HP PRN NM 04/07/25 23:00 04/08/25 01:08 325 MG Metoclopramide HCl 5 mg Q6HPRN PRN IV 04/07/25 23:15 Clindamycin Phosphate 50 ml @ 50 mls/hr Q8H IV 04/08/25 11:00 04/09/25 05:36 50 MLS/HR Amino Acids 0 ml @ 0 mls/hr PER PHARMACY IV 04/08/25 18:45 Amino Acids/ Electrolytes/ Dextrose 1,000 ml @ 41 mls/hr DAILY@2200 IV 04/08/25 22:00 04/08/25 23:37 41 MLS/HR Diagnostic Test (Pha) 1 strip Q6HR 04/09/25 00:00 04/09/25 05:38 1 STRIP Insulin Human Regular FOLLOW SLIDING SCALE Q6HR SC 04/09/25 00:00 04/09/25 05:44 16 UNITS Dextrose 50 ml UD IV 04/08/25 22:00 Acetylcysteine 100 mg Q4HR NEB 04/09/25 10:00 UNV Examination: LUNGS:Normal, CVS:Normal, MSK:Normal laboratory and microbiology Laboratory Tests 04/09/25 04:42 Test 04/09/25 04:42 Range/Units Serum Glucose 290 H 74-106 mg/dL Microbiology Date/Time Source Procedure Growth Status 04/02/25 17:38 Bronchial Washings Gram Stain - Final Complete 04/02/25 17:38 Bronchial Washings Respiratory Culture - Final Complete 03/31/25 17:30 Nose MRSA Screen - Final Complete 03/30/25 21:30 Voided Urine Urine Culture - Final Yeast, not Janna albicans Complete 03/30/25 18:38 Blood Blood Culture - Final NO GROWTH AFTER 5 DAYS OF INCUBATION. Complete Problem List/Assessment/Plan Problem List/Assessment/Plan Acute kidney injury superimposed Chronic Kidney Disease secondary hemodynamic mediated, FeNa >2% Acute respiratory failure, extubated 04/07 Septic shock Vancomycin toxicity UDS positive for fentanyl and benzos Diabetes mellitus type 2 bka hypokalemia hypocalcemia hyperphosphatemia Hypomagnesemia Anemia of chronic kidney disease Recommendations Kidney function continues to improve Increased urine output Strict I&Os DC vancomycin Kidney ultrasound reported within normal limit Discontinue Low-dose dopamine Calcium acetate 667 mg NG tube 3 times daily Magnesium sulfate IV piggyback Insulin sliding scale We will continue to follow Plan discussed with: Patient My Orders My Orders Orders - RA CARCAMO MD Procedure Category Date Status Time Magnesium Ward PHA 04/09/25 Verified 12:00 Dietary Evaluation Review Comments: Nutrition Recommendation; 1) TF Vital HP @ 50ml/hr. Start @ 20ml/hr, increase 10ml/hr Q4H until goal is reached. TF @ goal volume along with propofol & IVF D5w/NS 0.45% provides 1937 kcal (100% energy needs), 105 gm protein (100% protein needs), 1003 ml free water. 2) Water flush 150ml Q4H 3) TPN if NPO > 7 days 4) Monitor NPO status, lab values, wt trend, I/O Expected Outcomes/Goals: To meet at least 75% estimated needs within 7 days FU 2-3 days RA CARCAMO MD Apr 09, 2025 11:49
--- NOTE | 2025-04-09 14:58 | DVHPNRES ---
Progress Note Date Seen: Apr 09, 2025 Resident Creating Document: ERICK SILVESTRE RESIDENT Medical Necessity Reason Pt with a Central, PICC or Fol: Yes The following are medically ne: Central Line, Roach Catheter Medical Necessity Reason Patient seen and examined. He has NG tube draining the bile from his stomach for feeding. He failed swallow evaluation. Patient is off sedation and currently on antibiotics only and nutrition by peripheral line. Patient is also follow by the filter screen cleaner. Kidney ultrasound reported within normal limit Plan to discontinue Low-dose dopamine. She is on Calcium acetate 667 mg NG tube 3 times daily and Magnesium sulfate IV piggyback. Subjective Review of Systems unable to assess. Patient on Oxymizer and not talking much Objective vital signs Vital Sign Date Time Temp Pulse Resp B/P (MAP) Pulse Ox O2 Delivery O2 Flow Rate FiO2 04/09/25 13:59 103 18 98 04/09/25 13:51 Oxymizer 3.0 04/09/25 13:51 N/A 04/09/25 13:30 100.2 134/64 (87) 212.4 Total Intake and Output 04/08/25 04/08/25 04/09/25 15:00 23:00 07:00 Intake Total 959.439 ml 530 ml 1228 ml Output Total 1450 ml 2000 ml Balance 959.439 ml -920 ml -772 ml medications Current Medications Medications Dose Ordered Sig/Niesha Route Start Time Stop Time Status Last Admin Dose Admin Ondansetron HCl 4 mg Q4HP PRN IV 03/31/25 00:45 04/07/25 22:10 4 MG Nitroglycerin 0.4 mg Q5MINP PRN SL 03/31/25 00:45 Pantoprazole Sodium 40 mg DAILY IV 03/31/25 10:00 04/09/25 10:27 40 MG Meropenem 50 ml @ 17 mls/hr DAILY IV 04/01/25 10:00 UNV Dextrose/Sodium Chloride 1,000 ml @ 100 mls/hr Q10H IV 04/04/25 10:45 04/08/25 22:00 100 MLS/HR Norepinephrine Bitartrate 250 ml @ 0.938 mls/ hr Q24H IV 04/04/25 11:15 04/07/25 04:28 1.875 MLS/HR Enteral Nutritional Formula 1,000 ml 50ML/HR GT 04/04/25 12:30 04/04/25 16:47 1,000 ML Enoxaparin Sodium 30 mg DAILY SC 04/05/25 10:00 04/09/25 10:27 30 MG Calcium Acetate 667 mg TID NG 04/06/25 10:45 04/09/25 05:38 667 MG Propofol 100 ml @ 2.25 mls/hr Q24H IV 04/06/25 20:45 04/07/25 11:39 9 MLS/HR Meropenem 50 ml @ 17 mls/hr Q12HR IV 04/07/25 22:00 04/09/25 10:27 17 MLS/HR Albuterol 2.5 mg Q4HR NEB 04/07/25 18:30 04/09/25 13:48 2.5 MG Ipratropium [place] 0.5 mg Q4HR NEB 04/07/25 22:00 04/09/25 13:48 0.5 MG Metoclopramide HCl 10 mg Q6HPRN PRN IV 04/07/25 22:45 UNV Acetaminophen 325 mg Q6HP PRN NC 04/07/25 23:00 04/08/25 01:08 325 MG Metoclopramide HCl 5 mg Q6HPRN PRN IV 04/07/25 23:15 Clindamycin Phosphate 50 ml @ 50 mls/hr Q8H IV 04/08/25 11:00 04/09/25 12:27 50 MLS/HR Amino Acids 0 ml @ 0 mls/hr PER PHARMACY IV 04/08/25 18:45 Amino Acids/ Electrolytes/ Dextrose 1,000 ml @ 41 mls/hr DAILY@2200 IV 04/08/25 22:00 04/08/25 23:37 41 MLS/HR Diagnostic Test (Pha) 1 strip Q6HR 04/09/25 00:00 04/09/25 12:26 1 STRIP Insulin Human Regular FOLLOW SLIDING SCALE Q6HR SC 04/09/25 00:00 04/09/25 12:27 8 UNITS Dextrose 50 ml UD IV 04/08/25 22:00 Acetylcysteine 100 mg Q4HR NEB 04/09/25 10:00 Examination General Appearance:s/p extubated; on Oxymizer HEENT: Atraumatic, Respiratory: fair air entry bilateral, on Oxymizer, 3L Cardiovascular: Tachycardia, Normal S1, Normal S2, No murmurs, no chest wall tenderness Abdominal: NO distention, Extremities: No clubbing, No cyanosis, No edema, Normal pulses, No tenderness/swelling, right lower limb amputated Skin: No rashes, No breakdown, No significant lesion Neuro: unable to access Psych/Mental Status: Unable to access laboratory and microbiology Laboratory Tests 04/09/25 04:42 Test 04/09/25 04:42 Range/Units Serum Glucose 290 H 74-106 mg/dL Microbiology Date/Time Source Procedure Growth Status 04/02/25 17:38 Bronchial Washings Gram Stain - Final Complete 04/02/25 17:38 Bronchial Washings Respiratory Culture - Final Complete 03/31/25 17:30 Nose MRSA Screen - Final Complete 03/30/25 21:30 Voided Urine Urine Culture - Final Yeast, not Janna albicans Complete 03/30/25 18:38 Blood Blood Culture - Final NO GROWTH AFTER 5 DAYS OF INCUBATION. Complete Problem List/Assessment/Plan Problem List/Assessment/Plan Assessment and plan Neuro: Metabolic encephalopathy Uremic encephalopathy Hypoglycemia History of CVA Schizophrenia - CT head: No acute intracranial abnormality. - Treat the underlying problem: infection, hypoglycemia and electrolytes, abnormalities Respiratory: Acute hypoxic respiratory failure Possible pneumonia gram-/gram+ Increased anion gap metabolic acidosis CXR: Bibasilar areas of atelectasis or airspace disease S/p bronchoscopy 04/02/2025,final result pending ? Aspiration on chest x-ray: - Bicarb 7 received, discontinued 04/01/2025 - Meropenem - Fluconazole stop - Clindamycin 600mg tid 04/08/2025 initiated Cardiology: Cardiomegaly with mild congestion. Gastrointestinal Liver Cirrhosis Transaminitis Ammonia < 10 Nausea - Monitor LFT closely - Reglan 04/07/2025 Genitourinary: Acute Kidney failure likely due to VMN-Improving Acute kidney injury likely ischemic ATN in the setting of shock Good amount of urine made Rhabdomyolysis - D5W in .45 NS at 75mls/hr - Nephrology following Metabolic/Endocrine DKA, Hypoglycemia/Hyperglycemia--> Improving hyperkalemia Hyperphosphatemia hypomagnesemia - replaced electrolytes Infectious Disease Severe sepsis with septic shock Urinary track infection, Urine culture: >100,000 CFU/mL Yeast Identification to follow. Leukocytosis trending down Lactic acidosis-improving Hypothermic on admission Blood culture: No growth as of yet Antibiotics: Meropenem and vancomycin per pharmacy Fluids D5W with bicarb at 25mls/hr stoped Bicarb ( 7 amps total received now) Hematology Normocytic anemia Thrombocytosis likely due sepsis; Plt improved - Monitor the labs daily - Treat the underlying infections Polysubstance use Fentanyl and benzodiazepine OTHER medical -noncompliance IV access: Central line: right subclavian 03/30/2025 Drips: Levophed,Fentanyl and Propofol discontinued Diet: TF vitals 50ml/hr DVT prophylaxis: lovenox 30mg daily Antibiotics: Ceftriaxone ( Discontinued 03/31/2025); Vancomycin ( ); meropenem and clindamycin Roach catheter present 03/30/2025 PLAN: extubated 04/07/2025 at 15;15 Continuous monitoring. Calcium acetate 667 mg NG tube 3 times daily Magnesium sulfate IV piggyback Zofran for nausea clindamycin Disposition: MARIELA Plan: Continue current management. repeat labs and cxr in the morning Plan to downgrade him today ? Goal of care discussed with Nurse and family member Critical care time: 35 minutes Case discussed with Dr. Baumann, Plan discussed with: Patient My Orders My Orders Orders - ERICK SILVESTRE RESIDENT Procedure Category Date Status Time * Swallow Request ST 04/08/25 Transmitted 15:20 Chest Xray 1 View XY 04/08/25 Resulted 16:29 Acetylcysteine PHA 04/09/25 In Process Inhalation 10% 10:00 Chest Percussion Tx RT 04/09/25 Logged Initi 09:57 Dietary Evaluation Review Comments: Nutrition Recommendation; 1) TF Vital HP @ 50ml/hr. Start @ 20ml/hr, increase 10ml/hr Q4H until goal is reached. TF @ goal volume along with propofol & IVF D5w/NS 0.45% provides 1937 kcal (100% energy needs), 105 gm protein (100% protein needs), 1003 ml free water. 2) Water flush 150ml Q4H 3) TPN if NPO > 7 days 4) Monitor NPO status, lab values, wt trend, I/O Expected Outcomes/Goals: To meet at least 75% estimated needs within 7 days FU 2-3 days Date of Service: Apr 09, 2025 Billing Provider: EVELINE BAUMANN MD Common Visit Codes: NOT BILLABLE ERICK SILVESTRE RESIDENT Apr 09, 2025 14:58 EVELINE BAUMANN MD Apr 14, 2025 18:14
[2025-04-09] MEDS: MAGNESIUM SULFATE 1GM/100ML 100 ML IV SCH (15:06)
[2025-04-10] VITALS (86 sets, daily range): BP systolic 99–160; BP diastolic 57–78; PULSE 92–116; RESP 12–26; TEMP 91–100; O2SAT 92–100
[2025-04-10 06:05] LABS: Alanine Aminotransferase 37 U/L (7-40); Albumin 3.3 g/dL (3.2-4.8); Alkaline Phosphatase 116 U/L (46-116); Anion Gap 14 (5-15); BUN/Creatinine Ratio 19.8 (10.0-20.0); Blood Urea Nitrogen 26 mg/dL (9-23); Calcium 8.0 mg/dL (8.7-10.4); Carbon Dioxide 26 mmol/L (20-31); Chloride 107 mmol/L (98-107); Glucose 271 mg/dL (74-106); Magnesium 1.9 mg/dL (1.6-2.6); Potassium 2.9 mmol/L (3.5-5.1); Sodium 147 mmol/L (136-145); Total Protein 6.4 g/dL (5.7-8.2)
[2025-04-10 06:09] LABS: Bilirubin, Total 0.2 mg/dL (0.2-1.0)
[2025-04-10] MEDS: POTASSIUM CHL 20MEQ/100ML 100 ML IV SCH (06:27)
--- NOTE | 2025-04-10 11:02 | DVHPN2 ---
Progress Note Date Seen: Apr 10, 2025 Medical Necessity Reason Pt with a Central, PICC or Fol: Yes The following are medically ne: Central Line, Roach Catheter Subjective Patient reports: No new complaints Other Systems: Patient seen and examined by myself today in follow-up Objective vital signs Vital Sign Date Time Temp Pulse Resp B/P (MAP) Pulse Ox O2 Delivery O2 Flow Rate FiO2 04/10/25 09:48 99 20 97 04/10/25 09:40 Nasal Cannula 2.0 04/10/25 09:40 28 04/10/25 08:15 151/69 (96) 04/10/25 08:00 98.1 98.1 Total Intake and Output 04/09/25 04/09/25 04/10/25 15:00 23:00 07:00 Intake Total 1229 ml 724 ml 492 ml Output Total 2500 ml 2350 ml Balance 1229 ml -1776 ml -1858 ml medications Current Medications Medications Dose Ordered Sig/Niesha Route Start Time Stop Time Status Last Admin Dose Admin Ondansetron HCl 4 mg Q4HP PRN IV 03/31/25 00:45 04/07/25 22:10 4 MG Nitroglycerin 0.4 mg Q5MINP PRN SL 03/31/25 00:45 Pantoprazole Sodium 40 mg DAILY IV 03/31/25 10:00 04/10/25 10:46 40 MG Meropenem 50 ml @ 17 mls/hr DAILY IV 04/01/25 10:00 UNV Norepinephrine Bitartrate 250 ml @ 0.938 mls/ hr Q24H IV 04/04/25 11:15 04/07/25 04:28 1.875 MLS/HR Enteral Nutritional Formula 1,000 ml 50ML/HR GT 04/04/25 12:30 04/04/25 16:47 1,000 ML Enoxaparin Sodium 30 mg DAILY SC 04/05/25 10:00 04/10/25 10:47 30 MG Calcium Acetate 667 mg TID NG 04/06/25 10:45 04/10/25 05:42 667 MG Propofol 100 ml @ 2.25 mls/hr Q24H IV 04/06/25 20:45 04/07/25 11:39 9 MLS/HR Meropenem 50 ml @ 17 mls/hr Q12HR IV 04/07/25 22:00 04/10/25 10:46 17 MLS/HR Albuterol 2.5 mg Q4HR NEB 04/07/25 18:30 04/10/25 09:40 2.5 MG Ipratropium [place] 0.5 mg Q4HR NEB 04/07/25 22:00 04/10/25 09:40 0.5 MG Metoclopramide HCl 10 mg Q6HPRN PRN IV 04/07/25 22:45 UNV Acetaminophen 325 mg Q6HP PRN [place] 04/07/25 23:00 04/08/25 01:08 325 MG Metoclopramide HCl 5 mg Q6HPRN PRN IV 04/07/25 23:15 Clindamycin Phosphate 50 ml @ 50 mls/hr Q8H IV 04/08/25 11:00 04/10/25 04:05 50 MLS/HR Amino Acids 0 ml @ 0 mls/hr PER PHARMACY IV 04/08/25 18:45 Amino Acids/ Electrolytes/ Dextrose 1,000 ml @ 41 mls/hr DAILY@2200 IV 04/08/25 22:00 04/09/25 22:04 41 MLS/HR Diagnostic Test (Pha) 1 strip Q6HR 04/09/25 00:00 04/10/25 05:42 1 STRIP Insulin Human Regular FOLLOW SLIDING SCALE Q6HR SC 04/09/25 00:00 04/10/25 05:43 12 UNITS Dextrose 50 ml UD IV 04/08/25 22:00 Acetylcysteine 100 mg Q4HR NEB 04/09/25 10:00 04/10/25 09:40 100 MG Examination: LUNGS:Normal, CVS:Normal, MSK:Normal laboratory and microbiology Laboratory Tests 04/10/25 04:47 04/09/25 04:42 Test 04/10/25 04:47 Range/Units Serum Glucose 271 H 74-106 mg/dL Microbiology Date/Time Source Procedure Growth Status 04/02/25 17:38 Bronchial Washings Gram Stain - Final Complete 04/02/25 17:38 Bronchial Washings Respiratory Culture - Final Complete 03/31/25 17:30 Nose MRSA Screen - Final Complete 03/30/25 21:30 Voided Urine Urine Culture - Final Yeast, not Janna albicans Complete 03/30/25 18:38 Blood Blood Culture - Final NO GROWTH AFTER 5 DAYS OF INCUBATION. Complete Problem List/Assessment/Plan Problem List/Assessment/Plan Acute kidney injury superimposed Chronic Kidney Disease secondary hemodynamic mediated, FeNa >2% Acute respiratory failure, extubated 04/07 Septic shock Vancomycin toxicity UDS positive for fentanyl and benzos Diabetes mellitus type 2 bka hypokalemia hypocalcemia hyperphosphatemia Hypomagnesemia Anemia of chronic kidney disease Recommendations Kidney function continues to improve Increased urine output Strict I&Os DC vancomycin Kidney ultrasound reported within normal limit Discontinue Low-dose dopamine Magnesium sulfate IV piggyback Insulin sliding scale I will sign off this case, please reconsult as needed Thank you for the consult Plan discussed with: Patient Dietary Evaluation Review Comments: Nutrition Recommendation; 1) TF Vital HP @ 50ml/hr. Start @ 20ml/hr, increase 10ml/hr Q4H until goal is reached. TF @ goal volume along with propofol & IVF D5w/NS 0.45% provides 1937 kcal (100% energy needs), 105 gm protein (100% protein needs), 1003 ml free water. 2) Water flush 150ml Q4H 3) TPN if NPO > 7 days 4) Monitor NPO status, lab values, wt trend, I/O Expected Outcomes/Goals: To meet at least 75% estimated needs within 7 days FU 2-3 days RA CARCAMO MD Apr 10, 2025 11:02
[2025-04-10] MEDS ORDERED: TPN PER PHARMACY 0 ML IV SCH (12:00)
--- NOTE | 2025-04-10 13:01 | DVHPNRES ---
Progress Note Date Seen: Apr 10, 2025 Resident Creating Document: ERICK SILVESTRE Medical Necessity Reason Pt with a Central, PICC or Fol: Yes The following are medically ne: Central Line, Jean Catheter Medical Necessity Reason Patient is a 59 y/o obese male with significant medical history that includes ELVIS, CVA, DM, Liver Cirrhosis, schizophrenia, and noncompliance. He was was brought in on 03/31/2025 by the ambulance due to Altered mental status. Per the ED notes, When the EMS services arrived at the patient's residence, patient was found hypothermic (temperature was 94.6). Vitals were noted to have been stable and within normal limits, with exception of an initial systolic pressure in the 60's, and a blood glucose of 27. Patient was given 1x D10 and normal saline via IV 18G access to his left AC, with blood pressure and glucose levels improving to 90's and 140-150's, respectively. Patient remained unresponsive en route until arrival at ED, responding only occasionally. In the ED, he was intubated and mechanically ventilated, central line placed in the right subclavian through which drips ( Fentanyl, propofol and Levophed) and jean's catheter inserted. He initially received vancomycin and meropenem per pharmacy. Given the patient's acute kidney failure creatinine 10.8 (baseline: 1.29 on 03/21/2025), nephrology was consulted. Nephrology assessed and reviewed the labs Bicarb drip as ordered continue dextrose based fluid suspect starvation ketosis. Insulin drip and long acting insulin were discontinue due to hypoglycemic. Patient's blood pressure was also on the lower side, thus, he was on vasopressors p.r.n. maintain map greater than 65. Patient followed daily. WBC improving, Lactic acid still trending up. He is on bicarb in D5W at 125 mls/h. Patient is making urine last amount was 700ml overnight. Then all parameters began trending downwards. Patient had bronchoscopy on 04/02/2025. The culture did not grow anything significant. Patient has consistently be improving and. His kidney function is improving very. Patient was extubated 04/07/2025 at 15:15. After extubation, patient was vomiting alot. He had high residuals and the was a possibility of aspiration. His wbc was elevated and cxr showed Bibasilar left greater than right opacities which may represent atelectasis or aspiration.He was started on clindamycin. PN: 04/10/2025: Patient seen and examined. He is lying in bed has a nasal has is a cannula can not currently at 2 L of oxygen and saturating 94%. Patient's when spoken to does understand tries to speak bag however he is unable to articulate loudly and [place] clearly. He does seems to comprehend both German and [place]ian so not sure if maybe he speaks more a [place]ian than German I am not quite sure but so far he has good his kidney function continues to improve currently with creatinine level of 1.3. However he has potassium seems to be extremely low today measuring at 2.9. This was replaced and recheck showed 3.8. Patient had difficulties with swallow evaluation. Subjective Review of Systems unable to assess as patient is not talking much Objective vital signs Vital Sign Date Time Temp Pulse Resp B/P (MAP) Pulse Ox O2 Delivery O2 Flow Rate FiO2 04/10/25 12:15 99.7 99 19 99/61 (74) 94 211.5 04/10/25 09:40 Nasal Cannula 2.0 04/10/25 09:40 28 Total Intake and Output 04/09/25 04/09/25 04/10/25 15:00 23:00 07:00 Intake Total 1229 ml 724 ml 492 ml Output Total 2500 ml 2350 ml Balance 1229 ml -1776 ml -1858 ml medications Current Medications Medications Dose Ordered Sig/Niesha Route Start Time Stop Time Status Last Admin Dose Admin Ondansetron HCl 4 mg Q4HP PRN IV 03/31/25 00:45 04/07/25 22:10 4 MG Nitroglycerin 0.4 mg Q5MINP PRN SL 03/31/25 00:45 Pantoprazole Sodium 40 mg DAILY IV 03/31/25 10:00 04/10/25 10:46 40 MG Meropenem 50 ml @ 17 mls/hr DAILY IV 04/01/25 10:00 UNV Norepinephrine Bitartrate 250 ml @ 0.938 mls/ hr Q24H IV 04/04/25 11:15 04/07/25 04:28 1.875 MLS/HR Enteral Nutritional Formula 1,000 ml 50ML/HR GT 04/04/25 12:30 04/04/25 16:47 1,000 ML Enoxaparin Sodium 30 mg DAILY SC 04/05/25 10:00 04/10/25 10:47 30 MG Calcium Acetate 667 mg TID NG 04/06/25 10:45 04/10/25 05:42 667 MG Propofol 100 ml @ 2.25 mls/hr Q24H IV 04/06/25 20:45 04/07/25 11:39 9 MLS/HR Meropenem 50 ml @ 17 mls/hr Q12HR IV 04/07/25 22:00 04/10/25 10:46 17 MLS/HR Albuterol 2.5 mg Q4HR NEB 04/07/25 18:30 04/10/25 09:40 2.5 MG Ipratropium [place] 0.5 mg Q4HR NEB 04/07/25 22:00 04/10/25 09:40 0.5 MG Metoclopramide HCl 10 mg Q6HPRN PRN IV 04/07/25 22:45 UNV Acetaminophen 325 mg Q6HP PRN [place] 04/07/25 23:00 04/08/25 01:08 325 MG Metoclopramide HCl 5 mg Q6HPRN PRN IV 04/07/25 23:15 Clindamycin Phosphate 50 ml @ 50 mls/hr Q8H IV 04/08/25 11:00 04/10/25 12:06 50 MLS/HR Amino Acids 0 ml @ 0 mls/hr PER PHARMACY IV 04/08/25 18:45 Amino Acids/ Electrolytes/ Dextrose 1,000 ml @ 41 mls/hr DAILY@2200 IV 04/08/25 22:00 04/09/25 22:04 41 MLS/HR Diagnostic Test (Pha) 1 strip Q6HR 04/09/25 00:00 04/10/25 12:04 1 STRIP Insulin Human Regular FOLLOW SLIDING SCALE Q6HR SC 04/09/25 00:00 04/10/25 12:05 8 UNITS Dextrose 50 ml UD IV 04/08/25 22:00 Acetylcysteine 100 mg Q4HR NEB 04/09/25 10:00 04/10/25 09:40 100 MG Amino Acids 0 ml @ 0 mls/hr PER PHARMACY IV 04/10/25 12:00 UNV Examination General Appearance: Alert, Oriented X3, Cooperative, but not communicating much saying HEENT: Atraumatic, PERRLA, EOMI, Mucous membrane moist/pink Respiratory: Clear to auscultation, Normal air movement Cardiovascular: Regular rate, Normal S1, Normal S2, No murmurs, no chest wall tenderness Abdominal: NG tube in placed for feeding. NO distention, no tenderness, bowel sounds present, no scars noted Extremities: left left pain, No clubbing, No cyanosis, No edema, Normal pulses, No tenderness/swelling Skin: No rashes, No breakdown, No significant lesion Neuro: Normal gait, Normal speech, Strength at 5/5 X4 ext, Normal tone, Sensation intact, Cranial nerves 3-12 NL, Reflexes 2+ Psych/Mental Status: Mental status NL, Mood NL laboratory and microbiology Laboratory Tests 04/10/25 04:47 04/09/25 04:42 Test 04/10/25 04:47 Range/Units Serum Glucose 271 H 74-106 mg/dL Microbiology Date/Time Source Procedure Growth Status 04/02/25 17:38 Bronchial Washings Gram Stain - Final Complete 04/02/25 17:38 Bronchial Washings Respiratory Culture - Final Complete 03/31/25 17:30 Nose MRSA Screen - Final Complete 03/30/25 21:30 Voided Urine Urine Culture - Final Yeast, not Janna albicans Complete 03/30/25 18:38 Blood Blood Culture - Final NO GROWTH AFTER 5 DAYS OF INCUBATION. Complete Problem List/Assessment/Plan Problem List/Assessment/Plan Assessment and plan Neuro: Metabolic encephalopathy Uremic encephalopathy Hypoglycemia History of CVA Schizophrenia - CT head: No acute intracranial abnormality. - Treat the underlying problem: infection, hypoglycemia and electrolytes, abnormalities Respiratory: Acute hypoxic respiratory failure Possible pneumonia gram-/gram+ Increased anion gap metabolic acidosis CXR: Bibasilar areas of atelectasis or airspace disease S/p bronchoscopy 04/02/2025,final result pending ? Aspiration on chest x-ray: - Intubated and on mechanical ventilation - mechanical ventilation - Bicarb 7 received, discontinued 04/01/2025 - Meropenem - Fluconazole stop - Clindamycin 600mg tid 04/08/2025 initiated Cardiology: Cardiomegaly with mild congestion. Gastrointestinal Liver Cirrhosis Transaminitis Ammonia < 10 Nausea - Monitor LFT closely - Reglan 04/07/2025 Genitourinary: Acute Kidney failure likely due to VMN-Improving Acute kidney injury likely ischemic ATN in the setting of shock Good amount of urine made Rhabdomyolysis - D5W in .45 NS at 75mls/hr - Nephrology following Metabolic/Endocrine DKA, Hypoglycemia/Hyperglycemia--> Improving hyperkalemia Hyperphosphatemia hypomagnesemia - replaced electrolytes Infectious Disease Severe sepsis with septic shock Urinary track infection, Urine culture: >100,000 CFU/mL Yeast Identification to follow. Leukocytosis trending down Lactic acidosis-improving Hypothermic on admission Blood culture: No growth as of yet Antibiotics: Meropenem and vancomycin per pharmacy Fluids D5W with bicarb at 25mls/hr stoped Bicarb ( 7 amps total received now) Hematology Normocytic anemia Thrombocytosis likely due sepsis; Plt improved - Monitor the labs daily - Treat the underlying infections Polysubstance use Fentanyl and benzodiazepine Generalized weakness likely critical illness myopathy --> Get PT -- Swallow evaluation OTHER medical -noncompliance IV access: Central line: right subclavian 03/30/2025 Drips: Levophed,Fentanyl and Propofol discontinued Diet: TF vitals 50ml/hr DVT prophylaxis: lovenox 30mg daily Antibiotics: Ceftriaxone ( Discontinued 03/31/2025); Vancomycin ( ); meropenem and clindamycin Jean catheter present 03/30/2025 PLAN: extubated 04/07/2025 at 15;15 Continuous monitoring. Calcium acetate 667 mg NG tube 3 times daily Magnesium sulfate IV piggyback Zofran for nausea clindamycin Swallow evaluation by Speech therapy Disposition: MARIELA Goal of care discussed with Nurse and family member Critical care time: 35 minutes Case discussed with Dr. Maria, Plan discussed with: Patient My Orders My Orders Orders - ERICK SILVESTRE RESIDENT Procedure Category Date Status Time Potassium LAB 04/10/25 Logged 14:00 Potassium Chl PHA 04/10/25 Logged 20meq/100ml 12:00 Tpn Per Pharmacy PHA 04/10/25 Logged 12:00 Chest Xray 1 View XY 04/10/25 Verified 12:48 Dietary Evaluation Review Comments: Nutrition Recommendation; 1) TF Vital HP @ 50ml/hr. Start @ 20ml/hr, increase 10ml/hr Q4H until goal is reached. TF @ goal volume along with propofol & IVF D5w/NS 0.45% provides 1937 kcal (100% energy needs), 105 gm protein (100% protein needs), 1003 ml free water. 2) Water flush 150ml Q4H 3) TPN if NPO > 7 days 4) Monitor NPO status, lab values, wt trend, I/O Expected Outcomes/Goals: To meet at least 75% estimated needs within 7 days FU 2-3 days ERICK SILVESTRE RESIDENT Apr 10, 2025 13:01
--- NOTE | 2025-04-10 14:00 | DVH ---
CHEST RADIOGRAPH Indication: rule out aspiration Technique: Single frontal view of the chest was obtained Comparison: XY CHEST XRAY 1 VIEW on DOS: 04/08/25, XY CHEST PORTABLE on DOS: 04/08/25, XY CHEST PORTABL E on DOS: 04/07/25, XY CHEST PORTABLE on DOS: 04/06/25, XY CHEST PORTABLE on DOS: 04/05/25, XY CHEST XRA Y 1 VIEW on DOS: 04/08/25 FINDINGS: Bibasilar patchy opacities. Obscuration in the left hemidiaphragm with blunting of the left costophre otis sulcus heart border is enlarged. Enteric tube terminates in the stomach. Right central line termi nates within the superior vena cava. IMPRESSION: 1. NO interval change.
[2025-04-10] MEDS: POTASSIUM CHL 20MEQ/100ML 100 ML IV ONE (16:59)
[2025-04-10] MEDS ORDERED: Jevity 1.2 Cal/Fiber 1 Liter GT SCH (20:00)
[2025-04-10] MEDS: MORPHINE SULFATE INJ 2 MG/ml SYRG IV PRN (22:13)
[2025-04-10] MEDS: MORPHINE SULFATE INJ 2 MG/ml SYRG ONE (22:14)
[2025-04-11] VITALS (37 sets, daily range): BP systolic 106–167; BP diastolic 56–83; PULSE 95–122; RESP 13–25; TEMP 98.4–100.2; O2SAT 92–100
[2025-04-11 05:32] LABS: Hematocrit 27.2 % (41.0-53.0); Hemoglobin 9.2 g/dL (13.5-17.5); Mean Corpuscular Hemoglobin 28.5 pg (28.0-32.0); Mean Corpuscular Volume 84.8 fL (80.0-100.0); Nucleated Red Blood Cells % 0.1 %
[2025-04-11 05:50] LABS: Albumin 3.4 g/dL (3.2-4.8); Anion Gap 11 (5-15); BUN/Creatinine Ratio 25.8 (10.0-20.0); Calcium 8.8 mg/dL (8.7-10.4); Carbon Dioxide 26 mmol/L (20-31); Total Protein 6.5 g/dL (5.7-8.2)
[2025-04-11 05:53] LABS: Alanine Aminotransferase 60 U/L (7-40); Alkaline Phosphatase 119 U/L (46-116); Bilirubin, Total 0.2 mg/dL (0.2-1.0); Blood Urea Nitrogen 32 mg/dL (9-23); Chloride 113 mmol/L (98-107); Glucose 211 mg/dL (74-106); Magnesium 1.5 mg/dL (1.6-2.6); Potassium 3.5 mmol/L (3.5-5.1); Sodium 150 mmol/L (136-145)
[2025-04-11] MEDS: MAGNESIUM SULFATE 1GM/100ML 100 ML IV ONE (06:24)
--- NOTE | 2025-04-11 16:49 | DVHPNRES ---
Progress Note Date Seen: Apr 11, 2025 Resident Creating Document: ERICK SILVESTRE Medical Necessity Reason Pt with a Central, PICC or Fol: Yes The following are medically ne: Central Line, Jean Catheter Medical Necessity Reason Hospital course Patient is a 59 y/o obese male with significant medical history that includes ELVIS, CVA, DM, Liver Cirrhosis, schizophrenia, and noncompliance. He was was brought in on 03/31/2025 by the ambulance due to Altered mental status. Per the ED notes, When the EMS services arrived at the patient's residence, patient was found hypothermic (temperature was 94.6). Vitals were noted to have been stable and within normal limits, with exception of an initial systolic pressure in the 60's, and a blood glucose of 27. Patient was given 1x D10 and normal saline via IV 18G access to his left AC, with blood pressure and glucose levels improving to 90's and 140-150's, respectively. Patient remained unresponsive en route until arrival at ED, responding only occasionally. In the ED, he was intubated and mechanically ventilated, central line placed in the right subclavian through which drips ( Fentanyl, propofol and Levophed) and jean's catheter inserted. He initially received vancomycin and meropenem per pharmacy. Given the patient's acute kidney failure creatinine 10.8 (baseline: 1.29 on 03/21/2025), nephrology was consulted. Nephrology assessed and reviewed the labs Bicarb drip as ordered continue dextrose based fluid suspect starvation ketosis. Insulin drip and long acting insulin were discontinue due to hypoglycemic. Patient's blood pressure was also on the lower side, thus, he was on vasopressors p.r.n. maintain map greater than 65. Patient followed daily. WBC improving, Lactic acid still trending up. He is on bicarb in D5W at 125 mls/h. Patient is making urine last amount was 700ml overnight. Then all parameters began trending downwards. Patient had bronchoscopy on 04/02/2025. The culture did not grow anything significant. Patient has consistently be improving and. His kidney function is improving very. Patient was extubated 04/07/2025 at 15:15. After extubation, patient vomited a lot. He had high residuals and the was a possibility of aspiration. His wbc was elevated and cxr showed Bibasilar left greater than right opacities which may represent atelectasis or aspiration.He was started on clindamycin. PN: 04/11/2025: Patient seen and examined. He is lying in bed has a nasal has is a cannula can not currently at 2 L of oxygen and saturating 94%. He is coughing although weak. Earlier in the morning he still has the NGT in place as he is been unable to pass the swallow evaluation. Patient seems to have post extubation dysphagia. He was extubated since 04/07/2025. Will obtain MRI to rule out any [employer] abnormalities like lacunar stroke. Patient was able to sit in the chair today with PT. At 3pm, patient apparently pulled out the NGT and was able to sip and without choking. He also had an apple sauce. Labs today shows Na: 150, K: 3.8. CR: 1.24, wbc 8.3. Subjective Review of Systems Review of system: Unable to get a clear information from the patient. He is alert and oriented. He is only not speaking as much. But he did not point to any place for pain . Objective vital signs Vital Sign Date Time Temp Pulse Resp B/P (MAP) Pulse Ox O2 Delivery O2 Flow Rate FiO2 04/11/25 15:00 99.7 121 20 141/78 (99) 99 211.5 04/11/25 14:24 Nasal Cannula 2.0 04/11/25 14:24 28 Total Intake and Output 04/10/25 04/10/25 04/11/25 15:00 23:00 07:00 Intake Total 255 ml 528 ml Output Total 1750 ml 1500 ml Balance -1495 ml -972 ml medications Current Medications Medications Dose Ordered Sig/Niesha Route Start Time Stop Time Status Last Admin Dose Admin Ondansetron HCl 4 mg Q4HP PRN IV 03/31/25 00:45 04/07/25 22:10 4 MG Nitroglycerin 0.4 mg Q5MINP PRN SL 03/31/25 00:45 Pantoprazole Sodium 40 mg DAILY IV 03/31/25 10:00 04/11/25 07:44 40 MG Meropenem 50 ml @ 17 mls/hr DAILY IV 04/01/25 10:00 UNV Norepinephrine Bitartrate 250 ml @ 0.938 mls/ hr Q24H IV 04/04/25 11:15 04/07/25 04:28 1.875 MLS/HR Enteral Nutritional Formula 1,000 ml 50ML/HR GT 04/04/25 12:30 04/04/25 16:47 1,000 ML Enoxaparin Sodium 30 mg DAILY SC 04/05/25 10:00 04/11/25 07:44 30 MG Calcium Acetate 667 mg TID NG 04/06/25 10:45 04/11/25 12:36 667 MG Propofol 100 ml @ 2.25 mls/hr Q24H IV 04/06/25 20:45 04/07/25 11:39 9 MLS/HR Meropenem 50 ml @ 17 mls/hr Q12HR IV 04/07/25 22:00 04/11/25 07:44 17 MLS/HR Albuterol 2.5 mg Q4HR NEB 04/07/25 18:30 04/11/25 14:24 2.5 MG Ipratropium [place] 0.5 mg Q4HR NEB 04/07/25 22:00 04/11/25 14:24 0.5 MG Metoclopramide HCl 10 mg Q6HPRN PRN IV 04/07/25 22:45 UNV Acetaminophen 325 mg Q6HP PRN DC 04/07/25 23:00 04/08/25 01:08 325 MG Metoclopramide HCl 5 mg Q6HPRN PRN IV 04/07/25 23:15 Clindamycin Phosphate 50 ml @ 50 mls/hr Q8H IV 04/08/25 11:00 04/11/25 07:44 50 MLS/HR Amino Acids 0 ml @ 0 mls/hr PER PHARMACY IV 04/08/25 18:45 Cancel Amino Acids/ Electrolytes/ Dextrose 1,000 ml @ 41 mls/hr DAILY@2200 IV 04/08/25 22:00 04/11/25 21:59 04/10/25 22:09 41 MLS/HR Diagnostic Test (Pha) 1 strip Q6HR 04/09/25 00:00 04/11/25 11:37 1 STRIP Insulin Human Regular FOLLOW SLIDING SCALE Q6HR SC 04/09/25 00:00 04/11/25 11:43 12 UNITS Dextrose 50 ml UD IV 04/08/25 22:00 Acetylcysteine 100 mg Q4HR NEB 04/09/25 10:00 04/11/25 14:24 100 MG Amino Acids 0 ml @ 0 mls/hr PER PHARMACY IV 04/10/25 12:00 Enteral Nutritional Formula 1,000 ml 30ML/HR GT 04/10/25 20:00 Morphine Sulfate 1 mg Q4HP PRN IV 04/10/25 21:30 04/10/25 22:13 1 MG Examination General Appearance: Alert, Oriented X3, Cooperative, No acute distress HEENT: Atraumatic, PERRLA, EOMI, Mucous membrane moist/pink Respiratory: Clear to auscultation, Normal air movement Cardiovascular: Regular rate, Normal S1, Normal S2, No murmurs, no chest wall tenderness Abdominal: NO distention, no tenderness, bowel sounds present, no scars noted Extremities: left lower extremity had a brisk reflex with the patellar hammer, Babinski sign could not elicit because of his neuropathy, right leg amputation, Right upper extremity shoes guttering, left is swollen, RIGHT lower limb amputated Skin: No rashes, No breakdown, No significant lesion Neuro: transferred to chair today Psych/Mental Status: unable to assess laboratory and microbiology Laboratory Tests 04/11/25 05:05 Test 04/11/25 05:05 Range/Units Serum Glucose 211 H 74-106 mg/dL Microbiology Date/Time Source Procedure Growth Status 04/02/25 17:38 Bronchial Washings Gram Stain - Final Complete 04/02/25 17:38 Bronchial Washings Respiratory Culture - Final Complete 03/31/25 17:30 Nose MRSA Screen - Final Complete 03/30/25 21:30 Voided Urine Urine Culture - Final Yeast, not Janna albicans Complete 03/30/25 18:38 Blood Blood Culture - Final NO GROWTH AFTER 5 DAYS OF INCUBATION. 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 - Treat the underlying problem: infection, hypoglycemia and electrolytes, abnormalities - MRI to rule our infarcts; 04/11/25 Plan: IF MRI is positive, consult Neurology Continue PT Respiratory: Acute hypoxic respiratory failure Possible pneumonia gram-/gram+ Increased anion gap metabolic acidosis CXR: Bibasilar areas of atelectasis or airspace disease S/p bronchoscopy 04/02/2025,final result pending ? Aspiration on chest x-ray: - extubated 04/07/2025 at 15;15 Continuous monitoring. - Bicarb 7 received, discontinued 04/01/2025 - Meropenem - Fluconazole stopped - Clindamycin 600mg tid 04/08/2025 initiated Plan: to stop on 04/13/2025 Cardiology: Cardiomegaly with mild congestion. Gastrointestinal Liver Cirrhosis Transaminitis Ammonia < 10 Nausea - Monitor LFT closely - Reglan 04/07/2025 Genitourinary: Acute Kidney failure likely due to VMN- improved Acute kidney injury likely ischemic ATN in the setting of shock Good amount of urine made Rhabdomyolysis - D5W in .45 NS at 75mls/hr - Nephrology following Metabolic/Endocrine DKA, Hypoglycemia/Hyperglycemia--> Improving hyperkalemia Hyperphosphatemia hypomagnesemia - replaced electrolytes Infectious Disease Severe sepsis with septic shock Urinary track infection, Urine culture: >100,000 CFU/mL Yeast Identification to follow. Leukocytosis trending down Lactic acidosis-improving Hypothermic on admission Blood culture: No growth as of yet Antibiotics: Meropenem and vancomycin per pharmacy Fluids D5W with bicarb at 25mls/hr stoped Bicarb ( 7 amps total received now) Hematology Normocytic anemia Thrombocytosis likely due sepsis; Plt improved - Monitor the labs daily - Treat the underlying infections Polysubstance use Fentanyl and benzodiazepine in Urine test on admission OTHER medical -noncompliance IV access: Central line: right subclavian 03/30/2025 Drips: Levophed,Fentanyl and Propofol discontinued Diet: TF vitals 50ml/hr DVT prophylaxis: lovenox 30mg daily Antibiotics: Ceftriaxone ( Discontinued 03/31/2025); Vancomycin ( ); meropenem and clindamycin Jean catheter present 03/30/2025 PLAN: Clindamycin D/C on 04/13/2025 NGT removed by patient: will try swallow evaluation Continue PT MRI, If positive, Neurology consult Family wants Hospice 04/11/2025 Disposition: MARIELA Goal of care discussed with Nurse and family member Critical care time: 35 minutes Case discussed with Dr. Maria, Plan discussed with: Patient, Other (Nurse) My Orders My Orders Orders - ERICK SILVESTRE RESIDENT Procedure Category Date Status Time Clinimix Per Pharmacy ARTUR 04/10/25 In Process 22:00 Nutritional PHA 04/10/25 In Process Supplements (Jevity 20:00 Pt Request For Service PT 04/11/25 Logged 08:32 * Swallow Request ST 04/11/25 Transmitted 08:37 Dietary Evaluation Review Comments: Nutrition Recommendation; 1) TF Vital HP @ 50ml/hr. Start @ 20ml/hr, increase 10ml/hr Q4H until goal is reached. TF @ goal volume along with propofol & IVF D5w/NS 0.45% provides 1937 kcal (100% energy needs), 105 gm protein (100% protein needs), 1003 ml free water. 2) Water flush 150ml Q4H 3) TPN if NPO > 7 days 4) Monitor NPO status, lab values, wt trend, I/O Expected Outcomes/Goals: To meet at least 75% estimated needs within 7 days FU 2-3 days ERICK SILVESTRE RESIDENT Apr 11, 2025 16:48
--- NOTE | 2025-04-11 17:24 | DVH ---
EXAM: MRI BRAIN HEAD WO CONTRAST CLINICAL HISTORY: r/o [employer] lesion, unexplained dysphagia COMPARISON: MRI BRAIN HEAD WO CONTRAST on DOS: 03/23/25 TECHNIQUE: Multiplanar, multisequence magnetic resonance imaging of the brain was performed without intravenous contrast. FINDINGS: [id number] diffuse brain Atrophy. No hemorrhages, masses, mass effect, midline shift, herniation or cytotoxic edema following large vas cular territory. No intra-axial or extra-axial fluid collections. No evidence of hydrocephalus. The b chanel cisterns are patent. Vascular flow voids are maintained. The pituitary gland, sella and parasellar regions are unremarkable. The cerebellar tonsils are in no rmal position. The cerebellum is unremarkable. The orbits and globes are unremarkable. Mucous retention cyst within the right maxillary sinus. Othe rwise, the paranasal sinuses are clear. Minimal mucosal thickening of the mastoids. No worrisome saray varial lesions. IMPRESSION: No evidence of acute intracranial abnormalities. Mucous retention cyst within the right maxillary sinus
[2025-04-12] VITALS (43 sets, daily range): BP systolic 85–174; BP diastolic 34–80; PULSE 77–139; RESP 12–27; TEMP 97.8–100; O2SAT 9–100
[2025-04-12 06:52] LABS: Anion Gap 12 (5-15); Carbon Dioxide 26 mmol/L (20-31); Potassium 3.8 mmol/L (3.5-5.1)
[2025-04-12 06:55] LABS: Calcium 8.5 mg/dL (8.7-10.4); Chloride 116 mmol/L (98-107); Sodium 154 mmol/L (136-145)
[2025-04-12 06:58] LABS: BUN/Creatinine Ratio 27.7 (10.0-20.0); Magnesium 1.9 mg/dL (1.6-2.6)
[2025-04-12 07:02] LABS: Blood Urea Nitrogen 39 mg/dL (9-23); Glucose 189 mg/dL (74-106)
[2025-04-12 07:16] LABS: Hematocrit 28.1 % (41.0-53.0); Hemoglobin 9.3 g/dL (13.5-17.5); Mean Corpuscular Hemoglobin 28.6 pg (28.0-32.0); Mean Corpuscular Volume 86.4 fL (80.0-100.0)
[2025-04-12 07:17] LABS: Nucleated Red Blood Cells % 0.0 %
[2025-04-12] MEDS: LEVALBUTEROL HCL 1.25 MG/3 ML NEB NEB SCH (18:25)
--- NOTE | 2025-04-12 23:56 | DVHPN2 ---
Progress Note - Dictate Date Seen: Apr 12, 2025 Medical Necessity Reason Pt with a Central, PICC or Fol: Yes The following are medically ne: Central Line, Jean Catheter Reason for jean catheter: Strict I&O Subjective Patient seen and examined at bedside. Remains on supplemental oxygen Overnight events reviewed. vital signs Vital Sign Date Time Temp Pulse Resp B/P (MAP) Pulse Ox O2 Delivery O2 Flow Rate FiO2 04/12/25 22:21 124 18 100 04/12/25 20:00 Nasal Cannula* 1 24 04/12/25 20:00 97.8 117/34 (61) 97.8 Total Intake and Output 04/11/25 04/11/25 04/12/25 15:00 23:00 07:00 Intake Total 433 ml 378 ml 242 ml Output Total 1200 ml 550 ml Balance 433 ml -822 ml -308 ml medications Current Medications Medications Dose Ordered Sig/Niesha Route Start Time Stop Time Status Last Admin Dose Admin Ondansetron HCl 4 mg Q4HP PRN IV 03/31/25 00:45 04/07/25 22:10 4 MG Nitroglycerin 0.4 mg Q5MINP PRN SL 03/31/25 00:45 Pantoprazole Sodium 40 mg DAILY IV 03/31/25 10:00 04/12/25 07:59 40 MG Meropenem 50 ml @ 17 mls/hr DAILY IV 04/01/25 10:00 UNV Norepinephrine Bitartrate 250 ml @ 0.938 mls/ hr Q24H IV 04/04/25 11:15 04/07/25 04:28 1.875 MLS/HR Enteral Nutritional Formula 1,000 ml 50ML/HR GT 04/04/25 12:30 04/04/25 16:47 1,000 ML Enoxaparin Sodium 30 mg DAILY SC 04/05/25 10:00 04/12/25 08:00 30 MG Calcium Acetate 667 mg TID NG 04/06/25 10:45 04/12/25 22:42 667 MG Propofol 100 ml @ 2.25 mls/hr Q24H IV 04/06/25 20:45 04/07/25 11:39 9 MLS/HR Meropenem 50 ml @ 17 mls/hr Q12HR IV 04/07/25 22:00 04/12/25 22:42 17 MLS/HR Ipratropium [place] 0.5 mg Q4HR NEB 04/07/25 22:00 04/12/25 22:07 0.5 MG Metoclopramide HCl 10 mg Q6HPRN PRN IV 04/07/25 22:45 UNV Acetaminophen 325 mg Q6HP PRN SD 04/07/25 23:00 04/08/25 01:08 325 MG Metoclopramide HCl 5 mg Q6HPRN PRN IV 04/07/25 23:15 Clindamycin Phosphate 50 ml @ 50 mls/hr Q8H IV 04/08/25 11:00 04/12/25 17:10 50 MLS/HR Amino Acids 0 ml @ 0 mls/hr PER PHARMACY IV 04/08/25 18:45 Cancel Diagnostic Test (Pha) 1 strip Q6HR 04/09/25 00:00 04/12/25 17:24 1 STRIP Insulin Human Regular FOLLOW SLIDING SCALE Q6HR SC 04/09/25 00:00 04/12/25 17:25 8 UNITS Dextrose 50 ml UD IV 04/08/25 22:00 Acetylcysteine 100 mg Q4HR NEB 04/09/25 10:00 04/12/25 22:07 100 MG Amino Acids 0 ml @ 0 mls/hr PER PHARMACY IV 04/10/25 12:00 Enteral Nutritional Formula 1,000 ml 30ML/HR GT 04/10/25 20:00 Morphine Sulfate 1 mg Q4HP PRN IV 04/10/25 21:30 04/10/25 22:13 1 MG Levalbuterol HCl 0.625 mg Q4HR NEB 04/12/25 18:00 04/12/25 22:07 0.625 MG objective Gen.: Patient lying in bed in no apparent distress. On supplemental oxygen. Head: Normocephalic, atraumatic. Eyes: EOMI/PERRLA. Ears: Normal hearing. Normal anatomy. Neck/trachea: Trachea midline, supple. Nose: Normal external anatomy. Mouth: Moist mucous membranes. Chest: Decreased air entry bilaterally. No wheezing or rhonchi. Cardiovascular: Positive S1, positive S2. Regular rate and rhythm. Abdomen: Positive bowel sounds in all 4 quadrants. Soft, non-tender, non- distended. : Deferred. Rectal: Deferred. Skin: Warm, dry. Intact. Extremities: 2+ radial pulses bilaterally. No lower extremity edema. Neuro: Awake, alert, oriented x3. No gross motor or sensory deficits. Cranial nerves II through XII intact. Gait not assessed. laboratory and microbiology Laboratory Tests 04/12/25 04:18 Test 04/12/25 04:18 Range/Units Serum Glucose 189 H 74-106 mg/dL Assessment/Plan Impression: Acute hypoxemic respiratory failure Pneumonia Atelectasis Sepsis Events: Remains on supplemental oxygen On 1 LPM NC Continue antibiotics Bronchodilators/Mucomyst Change albuterol to Levalbuterol due to tachycardia. Incentive spirometry On puree diet Physical therapy Continue Lovenox for DVT ppx S/p bronchoscopy on 04/02/25 Bronchial washings negative to date Brain MRI on 04/11/25 showed no acute intracranial abnormalities. Labs and imaging reviewed Rest of plan as noted below Plan: S/p extubation on 04/07/25 Supplemental oxygen Titrate to keep O2 sats above 92% Continue antibiotics Bronchodilators Monitor renal function Monitor electrolytes Supplement as needed Nutritional support DVT prophylaxis Prognosis: Guarded given patient's multiple co-morbidities. Condition: Critical Rest of plan per hospitalist and other consultants. A total of 35 minutes of critical care time was spent reviewing the patient record, examining the patient, making a diagnostic and therapeutic plan, discussing this plan with the medical personnel, following up on diagnostic studies and following the patient for clinical stability excluding any and all procedures. At least 50% of this time was spent in direct, [id number] contact. Thank you, Dr. Kendall, for allowing me to participate in this patient's care. Further recommendations will depend on the patient's clinical course. Please do not hesitate to contact me if you have any questions or concerns. This medical document was created using an electronic medical record system with [employer] dictation system. Although these documentations are being carefully reviewed, there may still be some phonetic and typographical changes. The errors are purely typographical, due to imperfection on the software program, and do not reflect any compromise in the patient's medical care. Dietary Evaluation Review Comments: Nutrition Recommendation; 1) TF Vital HP @ 50ml/hr. Start @ 20ml/hr, increase 10ml/hr Q4H until goal is reached. TF @ goal volume along with propofol & IVF D5w/NS 0.45% provides 1937 kcal (100% energy needs), 105 gm protein (100% protein needs), 1003 ml free water. 2) Water flush 150ml Q4H 3) TPN if NPO > 7 days 4) Monitor NPO status, lab values, wt trend, I/O Expected Outcomes/Goals: To meet at least 75% estimated needs within 7 days FU 2-3 days Plan discussed with: Other (CHRIS Melgoza) Critical Care Time(min): 35 CHELY CHARLES MD Apr 12, 2025 23:56
[2025-04-13] VITALS (34 sets, daily range): BP systolic 109–164; BP diastolic 35–100; PULSE 102–134; RESP 12–26; TEMP 98–99.4; O2SAT 92–100
[2025-04-13 08:07] LABS: Potassium 3.8 mmol/L (3.5-5.1)
[2025-04-13 08:08] LABS: Anion Gap 10 (5-15); Carbon Dioxide 27 mmol/L (20-31); Hematocrit 28.6 % (41.0-53.0); Hemoglobin 9.4 g/dL (13.5-17.5); Mean Corpuscular Hemoglobin 28.6 pg (28.0-32.0); Mean Corpuscular Volume 86.8 fL (80.0-100.0)
[2025-04-13 08:09] LABS: Calcium 9.0 mg/dL (8.7-10.4)
[2025-04-13 08:10] LABS: Chloride 117 mmol/L (98-107); Sodium 154 mmol/L (136-145)
[2025-04-13 08:14] LABS: BUN/Creatinine Ratio 29.9 (10.0-20.0); Blood Urea Nitrogen 43 mg/dL (9-23); Glucose 249 mg/dL (74-106)
[2025-04-13 08:53] LABS: Total Cells Counted 100.0 (100)
[2025-04-13 08:54] LABS: RBC Morphology Normal
[2025-04-13] MEDS ORDERED: hydrALAZINE HCL 20 MG/ML VL IV PRN (14:45)
[2025-04-13] MEDS: INSULIN LANTUS (GLARGINE) 1 /0.01ml (100units/ml) SC SCH (21:27)
--- NOTE | 2025-04-13 23:40 | DVHPN2 ---
Progress Note - Dictate Date Seen: Apr 13, 2025 Medical Necessity Reason Pt with a Central, PICC or Fol: Yes The following are medically ne: Central Line, Jean Catheter Reason for jean catheter: Strict I&O Subjective Patient seen and examined at bedside. Breathing comfortably on room air Overnight events reviewed. vital signs Vital Sign Date Time Temp Pulse Resp B/P (MAP) Pulse Ox O2 Delivery O2 Flow Rate FiO2 04/13/25 22:13 114 20 100 04/13/25 22:06 Room Air 0.0 04/13/25 22:06 21 04/13/25 20:00 99.4 138/68 (91) 99.4 Total Intake and Output 04/12/25 04/12/25 04/13/25 15:00 23:00 07:00 Intake Total 34 ml 50 ml 460 ml Output Total 575 ml 700 ml Balance 34 ml -525 ml -240 ml medications Current Medications Medications Dose Ordered Sig/Niesha Route Start Time Stop Time Status Last Admin Dose Admin Ondansetron HCl 4 mg Q4HP PRN IV 03/31/25 00:45 04/07/25 22:10 4 MG Nitroglycerin 0.4 mg Q5MINP PRN SL 03/31/25 00:45 Pantoprazole Sodium 40 mg DAILY IV 03/31/25 10:00 04/13/25 09:51 40 MG Meropenem 50 ml @ 17 mls/hr DAILY IV 04/01/25 10:00 UNV Norepinephrine Bitartrate 250 ml @ 0.938 mls/ hr Q24H IV 04/04/25 11:15 04/07/25 04:28 1.875 MLS/HR Enteral Nutritional Formula 1,000 ml 50ML/HR GT 04/04/25 12:30 04/04/25 16:47 1,000 ML Enoxaparin Sodium 30 mg DAILY SC 04/05/25 10:00 04/13/25 09:52 30 MG Calcium Acetate 667 mg TID NG 04/06/25 10:45 04/13/25 21:20 667 MG Meropenem 50 ml @ 17 mls/hr Q12HR IV 04/07/25 22:00 04/13/25 21:20 17 MLS/HR Ipratropium [place] 0.5 mg Q4HR NEB 04/07/25 22:00 04/13/25 22:05 0.5 MG Metoclopramide HCl 10 mg Q6HPRN PRN IV 04/07/25 22:45 UNV Acetaminophen 325 mg Q6HP PRN RI 04/07/25 23:00 04/08/25 01:08 325 MG Metoclopramide HCl 5 mg Q6HPRN PRN IV 04/07/25 23:15 Clindamycin Phosphate 50 ml @ 50 mls/hr Q8H IV 04/08/25 11:00 04/13/25 18:10 50 MLS/HR Amino Acids 0 ml @ 0 mls/hr PER PHARMACY IV 04/08/25 18:45 Cancel Diagnostic Test (Pha) 1 strip Q6HR 04/09/25 00:00 04/13/25 17:13 1 STRIP Insulin Human Regular FOLLOW SLIDING SCALE Q6HR SC 04/09/25 00:00 04/13/25 17:12 12 UNITS Dextrose 50 ml UD IV 04/08/25 22:00 Acetylcysteine 100 mg Q4HR NEB 04/09/25 10:00 04/13/25 22:05 100 MG Amino Acids 0 ml @ 0 mls/hr PER PHARMACY IV 04/10/25 12:00 Enteral Nutritional Formula 1,000 ml 30ML/HR GT 04/10/25 20:00 Morphine Sulfate 1 mg Q4HP PRN IV 04/10/25 21:30 04/10/25 22:13 1 MG Levalbuterol HCl 0.625 mg Q4HR NEB 04/12/25 18:00 04/13/25 22:05 0.625 MG Insulin Glargine 10 units BID@0700,2200 IN 04/13/25 22:00 04/13/25 21:27 10 UNITS Hydralazine HCl 10 mg Q6HP PRN IV 04/13/25 14:45 objective Gen.: Patient lying in bed in no apparent distress. On room air Head: Normocephalic, atraumatic. Eyes: EOMI/PERRLA. Ears: Normal hearing. Normal anatomy. Neck/trachea: Trachea midline, supple. Nose: Normal external anatomy. Mouth: Moist mucous membranes. Chest: Decreased air entry bilaterally. No wheezing or rhonchi. Cardiovascular: Positive S1, positive S2. Regular rate and rhythm. Abdomen: Positive bowel sounds in all 4 quadrants. Soft, non-tender, non- distended. : Deferred. Rectal: Deferred. Skin: Warm, dry. Intact. Extremities: 2+ radial pulses bilaterally. No lower extremity edema. Neuro: Awake, alert, oriented x3. No gross motor or sensory deficits. Cranial nerves II through XII intact. Gait not assessed. laboratory and microbiology Laboratory Tests 04/13/25 07:50 Test 04/13/25 07:50 Range/Units Serum Glucose 249 H 74-106 mg/dL Assessment/Plan Impression: Acute hypoxemic respiratory failure Pneumonia Atelectasis Sepsis Events: Currently breathing on room air Supplemental oxygen PRN No distress Head of bed elevation Aspiration precautions Continue antibiotics Bronchodilators/Mucomyst Continues on Levalbuterol Incentive spirometry Continue puree diet Physical Therapy evaluation Continue Lovenox for DVT ppx Patient is stable from the pulmonary standpoint for downgrade to [facility]. S/p bronchoscopy on 04/02/25 Bronchial washings negative to date Brain MRI on 04/11/25 showed no acute intracranial abnormalities. Labs and imaging reviewed Rest of plan as noted below Plan: S/p extubation on 04/07/25 Supplemental oxygen PRN Titrate to keep O2 sats above 92% Continue antibiotics Bronchodilators Monitor renal function Monitor electrolytes Supplement as needed Nutritional support DVT prophylaxis Prognosis: Guarded given patient's multiple co-morbidities. Condition: Critical Rest of plan per hospitalist and other consultants. A total of 35 minutes of critical care time was spent reviewing the patient record, examining the patient, making a diagnostic and therapeutic plan, discussing this plan with the medical personnel, following up on diagnostic studies and following the patient for clinical stability excluding any and all procedures. At least 50% of this time was spent in direct, [id number] contact. Thank you, Dr. Kendall, for allowing me to participate in this patient's care. Further recommendations will depend on the patient's clinical course. Please do not hesitate to contact me if you have any questions or concerns. This medical document was created using an electronic medical record system with [employer] system. Although these documentations are being carefully reviewed, there may still be some phonetic and typographical changes. The errors are purely typographical, due to imperfection on the software program, and do not reflect any compromise in the patient's medical care. Dietary Evaluation Review Comments: Nutrition Recommendation; 1) TF Vital HP @ 50ml/hr. Start @ 20ml/hr, increase 10ml/hr Q4H until goal is reached. TF @ goal volume along with propofol & IVF D5w/NS 0.45% provides 1937 kcal (100% energy needs), 105 gm protein (100% protein needs), 1003 ml free water. 2) Water flush 150ml Q4H 3) TPN if NPO > 7 days 4) Monitor NPO status, lab values, wt trend, I/O Expected Outcomes/Goals: To meet at least 75% estimated needs within 7 days FU 2-3 days Plan discussed with: Other (CHRIS Brooks) Critical Care Time(min): 35 CHELY CHARLES MD Apr 13, 2025 23:40
[2025-04-14] VITALS (23 sets, daily range): BP systolic 128–146; BP diastolic 55–90; PULSE 101–119; RESP 14–20; TEMP 98.2–99.3; O2SAT 93–100
--- NOTE | 2025-04-14 11:20 | MEDREC ---
[facility] ASP Intervention Section I FOR[facility] ASP Intervention: Review courses of therapy (14 DAYS ON MEROPENEM - PLEASE CONSIDER DE-ESCALATING ANTIBIOTIC (OR D/C ANTIBIOTIC IF PATIENT CLINICALLY STABLE) ) STANLEY ARNETT PHARMACIST Apr 14, 2025 11:20
--- NOTE | 2025-04-14 11:38 | DVHPNRES ---
Progress Note Date Seen: Apr 14, 2025 Resident Creating Document: MIGUELINA CRONIN RESIDENT Medical Necessity Reason Pt with a Central, PICC or Fol: Yes The following are medically ne: Central Line, Jean Catheter Reason for jean catheter: Strict I&O Subjective Review of Systems A 59y old male with PMHx BPH, diabetes?, hypertension, right BKA, alcoholic liver cirrhosis?, schizoaffective syndrome? (bipolar and schizophrenia) , stroke, patient was on anticoagulation? (afib?) Admitted 03/30/25: AMSx2 days BPs 60s, hypoglycemic 20s required intubation and central line for pressors, patient had history of recurrent UTIs, UA showed multiple WBC clumps and yeast, at admission severe metabolic acidosis due to septic shock due to UTI with creatinine 10 which later improved after the jean insertion and IV antibiotics,patient also needed bicarbonate drip, he was started on zosyn and later upgraded to meropenem During his ICU course, patient was able to be extubated on 04/07/25, later vasopressors were weaned off on 04/09/25. Bronchoscopy on 04/02/25: no endobronchial lesions but mucosa appeared inflamed, copious semi-purulent secretions found in lower lobes bilaterally and thoroughly suctioned in a specimen container for cx. mucosa appeared friable Patient was also having dysphagia after extubation, MRI was done, which ruled out any stroke. Patient was living with his cousin and her , but they are unable to take care of him, DC with hospice was planning per previous primary team, patient is accepted at hospice in a facility, he will leave tomorrow at 10 am Objective vital signs Vital Sign Date Time Temp Pulse Resp B/P (MAP) Pulse Ox O2 Delivery O2 Flow Rate FiO2 04/14/25 10:54 101 16 100 04/14/25 10:48 Room Air 0.0 04/14/25 10:48 21 04/14/25 09:19 98.8 145/65 (91) 98.8 Total Intake and Output 04/13/25 04/13/25 04/14/25 15:00 23:00 07:00 Intake Total 100 ml 650 ml 100 ml Output Total 950 ml 400 ml Balance 100 ml -300 ml -300 ml medications Current Medications Medications Dose Ordered Sig/Niesha Route Start Time Stop Time Status Last Admin Dose Admin Pantoprazole Sodium 40 mg DAILY IV 03/31/25 10:00 04/14/25 09:15 40 MG Meropenem 50 ml @ 17 mls/hr DAILY IV 04/01/25 10:00 UNV Enteral Nutritional Formula 1,000 ml 50ML/HR GT 04/04/25 12:30 04/04/25 16:47 1,000 ML Enoxaparin Sodium 30 mg DAILY SC 04/05/25 10:00 04/14/25 09:15 30 MG Calcium Acetate 667 mg TID NG 04/06/25 10:45 04/14/25 06:19 667 MG Meropenem 50 ml @ 17 mls/hr Q12HR IV 04/07/25 22:00 04/14/25 09:15 17 MLS/HR Ipratropium [place] 0.5 mg Q4HR NEB 04/07/25 22:00 04/14/25 10:45 0.5 MG Metoclopramide HCl 10 mg Q6HPRN PRN IV 04/07/25 22:45 UNV Acetaminophen 325 mg Q6HP PRN [place] 04/07/25 23:00 04/08/25 01:08 325 MG Metoclopramide HCl 5 mg Q6HPRN PRN IV 04/07/25 23:15 Clindamycin Phosphate 50 ml @ 50 mls/hr Q8H IV 04/08/25 11:00 04/14/25 02:34 50 MLS/HR Amino Acids 0 ml @ 0 mls/hr PER PHARMACY IV 04/08/25 18:45 Cancel Diagnostic Test (Pha) 1 strip Q6HR 04/09/25 00:00 04/14/25 06:08 1 STRIP Insulin Human Regular FOLLOW SLIDING SCALE Q6HR SC 04/09/25 00:00 04/14/25 06:10 8 UNITS Dextrose 50 ml UD IV 04/08/25 22:00 Acetylcysteine 100 mg Q4HR NEB 04/09/25 10:00 04/14/25 10:48 100 MG Amino Acids 0 ml @ 0 mls/hr PER PHARMACY IV 04/10/25 12:00 Enteral Nutritional Formula 1,000 ml 30ML/HR GT 04/10/25 20:00 Levalbuterol HCl 0.625 mg Q4HR NEB 04/12/25 18:00 04/14/25 10:45 0.625 MG Insulin Glargine 10 units BID@0700,2200 SC 04/13/25 22:00 04/14/25 06:14 10 UNITS Examination General Appearance: Alert, Oriented X3, Cooperative, No acute distress HEENT: Atraumatic, PERRLA, EOMI, Mucous membrane moist/pink Respiratory: Clear to auscultation, Normal air movement Cardiovascular: Regular rate, Normal S1, Normal S2, No murmurs, no chest wall tenderness Abdominal: NO distention, no tenderness, bowel sounds present, no scars noted Extremities: right BKA Skin: No rashes, No breakdown, No significant lesion Neuro: transferred to chair today Psych/Mental Status: stable mood laboratory and microbiology Laboratory Tests 04/13/25 07:50 Test 04/13/25 07:50 Range/Units Serum Glucose 249 H 74-106 mg/dL Microbiology Date/Time Source Procedure Growth Status 04/02/25 17:38 Bronchial Washings Gram Stain - Final Complete 04/02/25 17:38 Bronchial Washings Respiratory Culture - Final Complete 03/31/25 17:30 Nose MRSA Screen - Final Complete 03/30/25 21:30 Voided Urine Urine Culture - Final Yeast, not Valery albicans Complete 03/30/25 18:38 Blood Blood Culture - Final NO GROWTH AFTER 5 DAYS OF INCUBATION. Complete Problem List/Assessment/Plan Problem List/Assessment/Plan Neurology #Acute metabolic encephalopathy due to severe metabolic acidosis due to UTI/hypoglycemia/uremia resolved #H/o stroke #H/o of bipolar syndrome #H/o of schizophrenia #Post extubation dysphagia resolved #Acute stroke ruled out -Treated the underlying problem: infection, hypoglycemia and electrolytes abnormalities - MRI ruled acute stroke - Stable mood: hold on psychiatric meds, restart per hospice team Cardiovascular: #Septic shock due to UTI resolved Previous need of vasopressors BNP normal Respiratory: #Acute hypoxic respiratory failure resolved #sp mechanical ventilation #sp bronchoscopy #Possible bibasilar atelectasis resolved Today room air , no need of home O2 Renal #Septic shock due to complicated UTI resolved #Postobstructive uropathy with jean catheter #BPH #Severe metabolic acidosis #ELVIS due to ATN/obstructive uropathy resolved #Rhabdomyolysis Patient is on meropenem and clindamycin at the moment, AB are going to be DC Patient will need the Jean catheter at facility No need of dialysis GI #Liver cirrhosis? #Transaminitis #Dysphagia resolved ALT and AST downtrending Continue puree diet Metabolic/Endocrine #DM type 2 HbA1c 5.7 #Hypoglycemia resolved #Hyperphosphatemia resolved #Hypomagnesemia resolved #sp right BKA Lantus 10UI , ISS Infectious Disease #septic shock due to complicated UTI resolved Urine culture: >100,000 CFU/mL Yeast, no valery Leukocytosis trending down Negative blood cultures Patient is on meropenem and clindamycin at the moment AB are going to be DC Hematology #Normocytic anemia due to possible chronic disease #Thrombocytosis likely due sepsis; Plt improved OTHER medical -noncompliance IV access: Central line: right subclavian 03/30/2025, please removed before DC to facility Diet: Puree diet DVT prophylaxis: lovenox 30mg daily PUD: protonix Antibiotics: meropenem and clindamycin Jean catheter present 03/30/2025 (continue at facility) PLAN: Family wants Hospice 04/11/2025 Disposition: Patient was living with his cousin and her , but they are unable to take care of him, DC with hospice was planning per previous primary team, patient is accepted at hospice in a facility, he will leave tomorrow at 10 am Goal of care discussed with Nurse and family member Time spent on care: 35 minutes Case discussed with Dr. Decker Plan discussed with: Patient, Other (rn) Dietary Evaluation Review Comments: Nutrition Recommendation; 1) TF Vital HP @ 50ml/hr. Start @ 20ml/hr, increase 10ml/hr Q4H until goal is reached. TF @ goal volume along with propofol & IVF D5w/NS 0.45% provides 1937 kcal (100% energy needs), 105 gm protein (100% protein needs), 1003 ml free water. 2) Water flush 150ml Q4H 3) TPN if NPO > 7 days 4) Monitor NPO status, lab values, wt trend, I/O Expected Outcomes/Goals: To meet at least 75% estimated needs within 7 days FU 2-3 days Date of Service: Apr 14, 2025 Billing Provider: SVETA DECKER MD Common Visit Codes: 37668-[id number] INP/OBS CARE(HIGH) Secondary Visit Codes: 20906-[id number] CARE PLAN 30 MINUTES MIGUELINA CRONIN RESIDENT Apr 14, 2025 11:38 SVETA DECKER MD Apr 15, 2025 16:28
[2025-04-15] VITALS (13 sets, daily range): BP systolic 119–158; BP diastolic 64–81; PULSE 98–111; RESP 16–20; TEMP 98.4–99.4; O2SAT 94–100
[2025-04-15 06:33] LABS: INR 1.24 (0.9-1.15); Partial Thromboplastin Time 24.9 SEC (24.5-34.5); Prothrombin Time 12.9 sec (9.3-11.8)
--- NOTE | 2025-04-15 07:13 | DVH ---
Exam: US CHEST ULTRASOUND Date: 04/15/2025 06:46 AM Clinical History: FLUID CHECK FOR POSSIBLE THORACENTESIS Comparison: None Technique: Targeted sonographic evaluation of the soft tissues of the bilateral chest was obtained utilizing gr ayscale and color Doppler imaging. Findings: There is no evidence for drainable collection. There is no evidence for solid or cystic mass in the site. No vascular abnormalities identified at this site. IMPRESSION: No definite sonographic abnormality is identified in the soft tissues of the bilateral chest
--- NOTE | 2025-04-15 19:38 | DVHDSRES ---
Discharge Summary Date of Admission Resident Creating Document: MIGUELINA CRONIN RESIDENT Mar 31, 2025 at 00:41 Date of Discharge: Apr 14, 2025 Admitting Diagnosis #Acute metabolic encephalopathy due to severe metabolic acidosis due to UTI/hypoglycemia/uremia Labs/Diagnostic Data: Laboratory Results Test 04/15/25 12:25 04/15/25 05:24 04/13/25 07:50 04/12/25 04:18 POC Glucose 159 mg/dl (70-106) Prothrombin Time 12.9 sec (9.3-11.8) Prothrombin Time INR 1.24 (0.9-1.15) Activated Partial Thromboplast Time 24.9 SEC (24.5-34.5) White Blood Count 7.7 10^3/uL (4.4-10.8) Red Blood Count 3.29 10^6/uL (4.5-5.90) Hemoglobin 9.4 g/dL (13.5-17.5) Hematocrit 28.6 % (41.0-53.0) Mean Corpuscular Volume 86.8 fL (80.0-100.0) Mean Corpuscular Hemoglobin 28.6 pg (28.0-32.0) Mean Corpuscular Hemoglobin Concent 33.0 g/dL (32.0-36.0) Red Cell Distribution Width 14.6 % (11.8-14.3) Platelet Count 576 10^3/uL (140-450) Mean Platelet Volume 8.5 fL (6.9-10.8) Neutrophils (%) (Auto) % (37.0-80.0) Lymphocytes (%) (Auto) % (10.0-50.0) Monocytes (%) (Auto) % (0.0-12.0) Basophils (%) (Auto) % (0.0-2.0) Neutrophils # (Auto) 10 ^3/uL (1.6-8.6) Lymphocytes # (Auto) 10 ^3/uL (0.4-5.4) Monocytes # (Auto) 10 ^3/uL (0-1.3) Differential Total Cells Counted 100.0 (100) Neutrophils % (Manual) 74 (37.0-80.0) Band Neutrophils % (Manual) 1 Lymphocytes % (Manual) 15 (10.0-50.0) Monocytes % (Manual) 8 (0-12) Eosinophils % (Manual) 2 (0-7) Basophils % (Manual) 0 (0.0-2.0) Metamyelocytes % (manual) 0 Myelocytes % (Manual) 0 Promyelocytes % (Manual) 0 Blast Cells % (Manual) 0 Reactive Lymphocytes 0 Platelet Estimate Increased Clumped Platelets Few Red Blood Cell Morphology Normal Sodium Level 154 mmol/L (136-145) Potassium Level 3.8 mmol/L (3.5-5.1) Chloride Level 117 mmol/L (98-107) Carbon Dioxide Level 27 mmol/L (20-31) Anion Gap 10 (5-15) Blood Urea Nitrogen 43 mg/dL (9-23) Creatinine 1.44 mg/dL (0.700-1.30) Glomerular Filtration Rate Calc 56 mL/min (>90) BUN/Creatinine Ratio 29.9 (10.0-20.0) Serum Glucose 249 mg/dL (74-106) Calcium Level 9.0 mg/dL (8.7-10.4) Eosinophils (%) (Auto) 0.7 % (0.0-7.0) Eosinophils # (Auto) 0 10 ^3/uL (0-0.8) Basophils # (Auto) 0.1 10 ^3/uL (0-0.2) Nucleated Red Blood Cells 0.0 % Phosphorus Level 3.0 mg/dL (2.4-5.1) Magnesium Level 1.9 mg/dL (1.6-2.6) Test 04/11/25 05:05 04/08/25 04:33 04/07/25 14:59 04/07/25 06:50 Total Bilirubin 0.2 mg/dL (0.2-1.0) Aspartate Amino Transferase (AST) 106 U/L (<34) Alanine Aminotransferase (ALT) 60 U/L (7-40) Alkaline Phosphatase 119 U/L (46-116) Total Protein 6.5 g/dL (5.7-8.2) Albumin 3.4 g/dL (3.2-4.8) Amylase Level 241 U/L (30-118) Lipase 18 U/L (12-53) Blood Gas Specimen Type Arterial Blood Gas Sample Site Left radial Blood Gas Patient Temperature 37.0 Arterial Blood Date Drawn [id number] Arterial Blood pH 7.345 (7.350-7.450) Arterial Blood Partial Pressure CO2 39.4 mmHg (35.0-48.0) Arterial Blood Partial Pressure O2 67.5 mmHg (83.0-108.0) Arterial Blood HCO3 21.0 mmol/L (21.0-28.0) Arterial Blood Oxygen Saturation 90.7 % (94.0-98.0) Arterial Blood Base Excess -4.3 mmol/L (-2.0-3.0) Arterial Blood Oxyhemoglobin 90.2 % (94.0-98.0) Arterial Blood Carboxyhemoglobin 0.3 % (0.5-1.5) Arterial Blood Methemoglobin 0.3 % (0.0-1.5) Carmelo Test Modified Blood Gas Total Hemoglobin 10.30 g/dL (13.5-17.5) Blood Gas Modality Vent - cpap Blood Gas Spontaneous Rate 20 FiO2 % 30.0 Blood Gas Pressure Support 8 Blood Gas PEEP or CPAP 5.0 Blood Gas Set Respiration Rate 16.0 Blood Gas Tidal Volume 400.0 Test 04/05/25 07:52 04/04/25 10:40 04/04/25 04:35 04/03/25 07:40 Specimen Drawn By Felix babcock Urine Creatinine 56.69 mg/dL (30.0-125.0) Urine Sodium 80 mmol/L (40-220) Urine Potassium 16 mmol/L (12-62) Urine Total Protein 112.2 mg/dL (1-14) Vitamin D 25-Hydroxy 30.2 ng/mL (30.0-100) Parathyroid Hormone (Intact) 205.1 pg/mL (18.4-80.1) Random Vancomycin Level 17.1 ug/mL (5-10) Blood Gas Notified Time [id number] Test 04/02/25 15:57 03/31/25 10:07 03/31/25 08:33 03/31/25 04:11 Lactic Acid Level 1.6 mmol/L (0.4-2.0) Blood Gas Critical Value Read Back Yes Blood Gas Notified Whom Np. maximo nolan Blood Gas Notified By Rt kamini gamble Serum Osmolality 324 mOsm/kg (278-298) Beta-Hydroxybutyric Acid 2.606 mmol/L (< 0.4) Troponin I High Sensitivity 40 ng/L (</=54) Test 03/31/25 00:20 03/30/25 21:30 03/30/25 18:38 Creatine Kinase 3197 U/L (46-171) Urine Color Brown (Yellow) Urine Clarity Ex.turbid (Clear) Urine pH 6.0 (5.0-9.0) Urine Specific Gate 1.014 (1.001-1.035) Urine Protein 2+ (Negative) Urine Ketones Negative (Negative) Urine Blood 2+ /uL (Negative) Urine Nitrite Negative (Negative) Urine Bilirubin Negative (Negative) Urine Urobilinogen Normal mg/dL (Negative) Urine Leukocyte Esterase 3+ /uL (Negative) Urine RBC 165 /hpf (0 - 3) Urine WBC Clumps Present /hpf (None Seen) Urine Microscopic WBC 3402 /HPF (0-3) Urine Squamous Epithelial Cells None seen /hpf (<5) Urine Bacteria Few /hpf (None Seen) Urine Yeast (Budding) Loaded /hpf (None Seen) Urine Glucose Normal mg/dL (Normal) Urine Opiates Screen Neg (NEGATIVE) Urine Fentanyl Screen Pos (NEGATIVE) Urine Barbiturates Screen Neg (NEGATIVE) Urine Phencyclidine Screen Neg (NEGATIVE) Urine Amphetamines Screen Neg (NEGATIVE) Urine Benzodiazepines Screen Pos (NEGATIVE) Urine Cocaine Screen Neg (NEGATIVE) Urine Cannabinoids Screen Neg (NEGATIVE) Ammonia < 10 umol/L (11-32) Salicylates Level < 3.0 mg/dL (-30) Acetaminophen Level < 2.0 UG/ML (10.0-20.0) Plasma/Serum Blood Alcohol < 3.0 mg/dL (<10) Other Laboratory Tests 04/13/25 07:50 Brief Hx & Hospital Course: This is a 59-year-old male with a history of BPH, diabetes mellitus type 2, hypertension, liver cirrhosis, schizophrenia, right BKA, and suspected schizoaffective/bipolar disorder who was admitted with severe metabolic acidosis, septic shock, and acute kidney injury secondary to a complicated urinary tract infection. The patient was initially hypotensive and required vasopressors and bicarbonate drip. UA showed WBCs and yeast, and Jean was inserted. Creatinine peaked at 10, later improved with supportive care. He was intubated and later successfully extubated on 04/07/25. MRI ruled out stroke. He had post-extubation dysphagia that improved. Bronchoscopy on 04/02/25 revealed friable mucosa and copious purulent secretions. CT showed no endobronchial lesions. He was treated with IV antibiotics including meropenem and clindamycin. Patient was living with his cousin and , who are unable to care for him. Family opted for hospice care. He was accepted to a facility and scheduled for transfer on 04/17/2025 General Appearance: Alert, Oriented X3, Cooperative, No acute distress HEENT: Atraumatic, PERRLA, EOMI, Mucous membrane moist/pink Respiratory: Clear to auscultation, Normal air movement Cardiovascular: Regular rate, Normal S1, Normal S2, No murmurs, no chest wall tenderness Abdominal: NO distention, no tenderness, bowel sounds present, no scars noted Extremities: right BKA Skin: No rashes, No breakdown, No significant lesion Psych/Mental Status: stable mood Discharge Plan: Patient is accepted at a hospice facility due to poor prognosis, family unable to provide care. Follow-up: Hospice team to assume full care. Condition on Discharge: Stable, tolerating diet, no longer on vasopressors, weaned off oxygen, no acute complaints. Case discussed with Dr Conrad Time spent on care and DC planning 38 min Consults/Reason for consult nephrology due to ELVIS senior medical transcriptionist due to acute respiratory failure Operations or Procedures procedure bronchoscopy and br washings indication pneumonia consent obtained time out per protocol flexible scope advanced through ET tube tracheobronchial tree examined no endobronchial lesions but mucosa appeared inflamed, copious semi-purulent secretions found in lower lobes bilaterally and thoroughly suctioned in a specimen container for cx. mucosa appeared friable at the end of procedure scope was removed no complications EXAM: MRI BRAIN HEAD WO CONTRAST CLINICAL HISTORY: r/o [employer] lesion, unexplained dysphagia COMPARISON: MRI BRAIN HEAD WO CONTRAST on DOS: 03/23/25 TECHNIQUE: Multiplanar, multisequence magnetic resonance imaging of the brain was performed without intravenous contrast. FINDINGS: [id number] diffuse brain Atrophy. No hemorrhages, masses, mass effect, midline shift, herniation or cytotoxic edema following large vascular territory. No intra-axial or extra-axial fluid collections. No evidence of hydrocephalus. The basal cisterns are patent. Vascular flow voids are maintained. The pituitary gland, sella and parasellar regions are unremarkable. The cerebellar tonsils are in normal position. The cerebellum is unremarkable. The orbits and globes are unremarkable. Mucous retention cyst within the right maxillary sinus. Otherwise, the paranasal sinuses are clear. Minimal mucosal thickening of the mastoids. No worrisome calvarial lesions. IMPRESSION: No evidence of acute intracranial abnormalities. Mucous retention cyst within the right maxillary sinus EXAM: CT HEAD WITHOUT CONTRAST INDICATION: ALOC TECHNIQUE: CT of the head without intravenous contrast. Radiation Dose Information: CT Dose: CTDI volume is 55.44 mGy. Dose-length product is 888.69 mGy*cm The dose indicators for CT are the volume Computed Tomography (CT) Dose Index (CTDIvol) and the Dose Length Product (DLP), and are measured in units of mGy and mGy-cm, respectively. These indicators are not patient dose, but values generated from the CT scanner acquisition factors. The report includes radiation exposure data for exposures received during this examination. COMPARISON: CT HEAD WITHOUT CONTRAST on DOS: 03/15/25 FINDINGS: There is no evidence of acute intracranial hemorrhage, extra-axial collection, mass effect, midline shift, herniation or hydrocephalus. The ventricles, sulci and cisterns are age appropriate. The paulson-white differentiation is intact. Patchy periventricular and subcortical white matter hypoattenuation is nonspecific but may be related to small vessel ischemic disease. Mucosal thickening of the maxillary and ethmoid sinuses bilaterally and mastoid air cells are clear. The surrounding soft tissues and osseous structures are unremarkable. IMPRESSION: 1. No acute intracranial abnormality. Condition at Discharge: Poor Final Diagnosis/Problems List #Acute metabolic encephalopathy due to severe metabolic acidosis due to UTI/hypoglycemia/uremia resolved #H/o stroke #H/o of bipolar syndrome #H/o of schizophrenia #Post extubation dysphagia resolved #Acute stroke ruled out #Septic shock due to UTI resolved #Acute hypoxic respiratory failure resolved #sp mechanical ventilation #sp bronchoscopy #Possible bibasilar atelectasis resolved #Septic shock due to complicated UTI resolved #Postobstructive uropathy with jean catheter #BPH #Severe metabolic acidosis #ELVIS due to ATN/obstructive uropathy resolved #Rhabdomyolysis #Liver cirrhosis? #Transaminitis #Dysphagia resolved #DM type 2 HbA1c 5.7 #Hypoglycemia resolved #Hyperphosphatemia resolved #Hypomagnesemia resolved #sp right BKA #septic shock due to complicated UTI resolved #Normocytic anemia due to possible chronic disease #Thrombocytosis likely due sepsis Discharge Disposition: Hospice- Medical Facility Discharge Instruct/Medications Diet: See Comment Diet comment: puree diet Activity: Light activity Follow Up/Referral: per hospice Medications: per hospice Scheduled Amlodipine Besylate (Amlodipine Besylate), 1 TAB PO DAILY, (Reported) Apixaban Base (Eliquis), 1 TAB PO BID, (Reported) Atorvastatin Calcium (Atorvastatin Calcium), 1 TAB PO DAILY, (Reported) Baclofen (Baclofen), 1 TAB PO BID, (Reported) Ertugliflozin l-Pyroglutamic A (Steglatro), 1 TAB PO DAILY, (Reported) Fluoxetine HCl (Fluoxetine HCl), 2 CAP PO QAM, (Reported) Folic Acid (Folic Acid), 1 TAB PO DAILY, (Reported) Gabapentin (Gabapentin), 1 CAP PO TID, (Reported) Hydroxyzine HCl (Hydroxyzine Hydrochloride), 1 TAB PO TID, (Reported) Insulin Glargine (Lantus), 40 UNIT SC HS, (Reported) Insulin Lispro (Insulin Lispro), 0-6 UNIT SC QID, (Reported) Losartan Potassium (Losartan Potassium), 1 TAB PO DAILY, (Reported) Metformin Hydrochloride (Metformin Hcl), 850 MG PO BID, (Reported) Metoprolol Tartrate (Lopressor Tablet), 1 TAB PO BID, (Reported) Olanzapine (Olanzapine), 1 TAB PO QPM, (Reported) Quetiapine Fumerate (Quetiapine Fumarate), 1 TAB PO DAILY, (Reported) Temazepam (Temazepam), 1 CAP PO DAILY, (Reported) Discharge Statement: "Patient was advised to return to the ER or call 911 if any headaches, dizziness, shortness of breath, chest pain, abdominal pain, bleeding, fevers, or worsening of medical condition. Patient was counseled about treatment plan, medications, possible side effects, patientverbalized understanding. All questions were answered to the best of my ability. This discharge took greater then 30 minutes in planning, reviewing documentation, counseling the patient, and discussing with other team members." ASSESSMENT ASSESSMENT Assessment sepsis due to UTI MIGUELINA CRONIN RESIDENT Apr 15, 2025 19:38
== END 2025-04-15 15:20 | disposition hospice, inpatient (51) | DRG 720 ==
LOC: ER 18:05 → EDBD 18:05 → OVERFLOW 03-31 00:41 → ICU CENTRL 03-31 18:12 → TELE-EAST 04-13 22:33
PROVIDERS: ADMIT Internal Medicine; ATTEND Internal Medicine
PROC: 02HV33Z Insertion of Infusion Device into Superior Vena Cava, Percutaneous Approach (ICD-10-PCS; principal; 2025-03-31)
PROC: 5A1955Z Respiratory Ventilation, Greater than 96 Consecutive Hours (ICD-10-PCS; 2025-03-31)
PROC: 0BH17EZ Insertion of Endotracheal Airway into Trachea, Via Natural or Artificial Opening (ICD-10-PCS; 2025-03-31)
PROC: 0B9J8ZZ Drainage of Left Lower Lung Lobe, Via Natural or Artificial Opening Endoscopic (ICD-10-PCS; 2025-04-02)
PROC: 0B9F8ZZ Drainage of Right Lower Lung Lobe, Via Natural or Artificial Opening Endoscopic (ICD-10-PCS; 2025-04-02)
DX: A41.9 Sepsis, unspecified organism (principal); N17.0 Acute kidney failure with tubular necrosis; J96.01 Acute respiratory failure with hypoxia; J15.69 Pneumonia due to other Gram-negative bacteria; J15.9 Unspecified bacterial pneumonia; R65.21 Severe sepsis with septic shock; E11.10 Type 2 diabetes mellitus with ketoacidosis without coma; G93.41 Metabolic encephalopathy; N13.8 Other obstructive and reflux uropathy; E87.4 Mixed disorder of acid-base balance; E83.39 Other disorders of phosphorus metabolism; D63.1 Anemia in chronic kidney disease; Z51.5 Encounter for palliative care; F20.9 Schizophrenia, unspecified; E87.6 Hypokalemia; R13.10 Dysphagia, unspecified; E83.51 Hypocalcemia; T36.8X5A Adverse effect of other systemic antibiotics, initial encounter; E11.22 Type 2 diabetes mellitus with diabetic chronic kidney disease; K74.60 Unspecified cirrhosis of liver; N18.9 Chronic kidney disease, unspecified; E83.42 Hypomagnesemia; E87.5 Hyperkalemia; D75.839 Thrombocytosis, unspecified; M62.82 Rhabdomyolysis; F31.9 Bipolar disorder, unspecified; N40.1 Benign prostatic hyperplasia with lower urinary tract symptoms; R74.01 Elevation of levels of liver transaminase levels; Z86.73 Personal history of transient ischemic attack (TIA), and cerebral infarction without residual deficits; Z79.4 Long term (current) use of insulin; Z79.01 Long term (current) use of anticoagulants; Z79.84 Long term (current) use of oral hypoglycemic drugs; Z89.611 Acquired absence of right leg above knee; Z91.148 Patient's other noncompliance with medication regimen for other reason; Z99.11 Dependence on respirator [ventilator] status; Y92.89 Other specified places as the place of occurrence of the external cause
CPT/HCPCS: 31500; 36415; 36556; 36600; 70450; 70551; 71045; 74018; 76604; 76775; 80048; 80053; 80202; 80307; 80320; 80329; 81001; 82010; 82140; 82150; 82306; 82550; 82570; 82805; 82962; 83605; 83690; 83735; 83930; 83970; 84100; 84132; 84133; 84156; 84300; 84484; 85007; 85025; 85027; 85610; 85730; 87040; 87070; 87081; 87086; 87088; 87205; 92610; 93005; 94002; 94003; 94640; 94668; 96361; 96374; 96375; 97110; 97163; 97530; 99291; G0378; J1450; J1815; J2185; J2405; J2470; J2704; J3480; J3490

== ENCOUNTER 2025-08-02 17:45 | Inpatient (IN) | payer MEDICAID ==
[~2025-08-02] VITALS: Ht 154.9 cm; Wt 63.0 kg
[~2025-08-02 17:45] MED LIST changes: -AML5T PO; -ATOR20TA; -BACL10TA PO; -FLUO1TAB14 PO; -GABA300T4 PO; -HYDR50TA69 PO; -INSU100I52 IJ; -METO-158 PO
[2025-08-02 18:57] LABS: Hematocrit 38.7 % (41.0-53.0); Hemoglobin 12.8 g/dL (13.5-17.5); Mean Corpuscular Hemoglobin 30.8 pg (28.0-32.0); Mean Corpuscular Volume 93.1 fL (80.0-100.0); Nucleated Red Blood Cells % 0.0 %
[2025-08-02] MEDS: SODIUM CHLORIDE 0.9% 1,000 ML IV ONE (18:57)
--- NOTE | 2025-08-02 18:57 | ECG ---
[facility] Test Date: 2025-08-02 Test Time: 18:45:52 Pat Name: LISA BENITES Department: [facility] Patient ID: [id number] Room: [address] [place] [address] Gender: M Pool Player: KYLE : 1965 Requested By: SHELIA ROSENBAUM Order Number: [id number] Reading MD: Roshan Velasco Measurements Intervals [place] Rate: 96 P: 40 GA: 143 QRS: 26 QRSD: 86 T: 27 QT: 358 QTc: 453 Interpretive Statements Sinus rhythm Abnormal R-wave progression, early transition Electronically Signed On 08-03-2025 17:03:56 PDT by Roshan Velasco Please click the below link to view image of tracing.
[2025-08-02] MEDS ORDERED: InsuLIN REG 1unit/0.01ml Soln (100units/ml) SC ONE (19:00)
[2025-08-02 19:07] VITALS: PULSE 93; RESP 19; O2SAT 97
[2025-08-02 19:14] LABS: Alanine Aminotransferase 13 U/L (7-40); Albumin 4.1 g/dL (3.2-4.8); Anion Gap 17 (5-15); BUN/Creatinine Ratio 13.3 (10.0-20.0); Calcium 8.9 mg/dL (8.7-10.4); Lipase 45 U/L (12-53); Total Protein 6.7 g/dL (5.7-8.2)
[2025-08-02 19:15] LABS: Alkaline Phosphatase 125 U/L (46-116); Bilirubin, Total 0.2 mg/dL (0.2-1.0); Blood Urea Nitrogen 30 mg/dL (9-23); Carbon Dioxide 18 mmol/L (20-31); Chloride 96 mmol/L (98-107); Potassium 5.2 mmol/L (3.5-5.1); Sodium 131 mmol/L (136-145)
[2025-08-02] MEDS ORDERED: DEXTROSE (50%) 50ML SYRG IV PRN (19:15)
[2025-08-02] MEDS: INSULIN LANTUS (GLARGINE) 1 /0.01ml (100units/ml) SC ONE (19:15)
[2025-08-02 19:27] LABS: Glucose 815 mg/dL (74-106)
[2025-08-02] MEDS: ACCU-CHEK COMFORT CURVE STRIP VI SCH (19:30)
[2025-08-02] MEDS: INSULIN DRIP 100 UNIT/100ML 100 ML IV SCH (19:39)
[2025-08-02 20:00] VITALS: PULSE 88; RESP 16; O2SAT 98
[2025-08-03] VITALS (14 sets, daily range): BP systolic 131–173; BP diastolic 68–112; PULSE 74–92; RESP 11–22; TEMP 98.1–99.1; O2SAT 94–100
--- NOTE | 2025-08-03 00:29 | ED.PDOC ---
History of Present Illness HPI Comments This patient is a 59-year-old male with a poor overall health who was brought in by EMS today due to tremor concerns. Patient's story and EMS story seems incomplete. Per EMS, patient was on hospice and therefore, family. Dispensing insulin to address glucose concerns. At arrival, patient seemed mildly confused and had bilateral hand tremors noted. Patient denies any fever but states intermittent nausea. This was hypertensive and tachycardic at arrival. Chief Complaint: Hyperglycemia Time Seen by MD: 17:51 Reviewed Notes: Nurses Notes, Barrel Coater Notes Allergies: Coded Allergies: NO KNOWN ALLERGIES (Unverified , 03/15/25) Home Meds Reported Medications Baclofen (Baclofen) 20 Mg Tab, 1 TAB PO BID for 50 Days, #100 04/02/25 Gabapentin (Gabapentin) 400 Mg Cap, 1 CAP PO TID for 90 Days, #270 04/02/25 Hydroxyzine HCl (Hydroxyzine Hydrochloride) 50 Mg Tab, 1 TAB PO TID for 30 Days, #90 04/02/25 Metoprolol Tartrate (LOPRESSOR TABLET) 50 Mg Tb, 1 TAB PO BID for 30 Days, #60 04/02/25 Insulin Lispro (Insulin Lispro) 100 Unit/Ml Inj, 0-6 UNIT SC QID for 30 Days, #10 INJECT 0-6 UNITS UNDER THE SKIN FOUR TIMES DAILY BEFORE MEALS AND AT BEDTIME. 04/02/25 Amlodipine Besylate (Amlodipine Besylate) 10 Mg Tab, 1 TAB PO DAILY for 30 Days, #30 04/02/25 Olanzapine (OLANZAPINE) 2.5 Mg Tab, 1 TAB PO QPM for 30 Days, #30 04/02/25 Fluoxetine HCl (Fluoxetine HCl) 20 Mg Cap, 2 CAP PO QAM for 30 Days, #60 04/02/25 Insulin Glargine (Lantus) 100 Unit/Ml Inj, 40 UNIT SC HS for 75 Days, #30 03/15/25 Apixaban Base (ELIQUIS) 5 Mg Tab, 1 TAB PO BID for 90 Days, #180 03/15/25 Ertugliflozin l-Pyroglutamic A (Steglatro) 5 Mg Tab, 1 TAB PO DAILY for 90 Days, #90 03/15/25 Quetiapine Fumerate (QUETIAPINE FUMARATE) 100 Mg Tab, 1 TAB PO DAILY for 30 D ays, #30 03/15/25 Folic Acid (Folic Acid) 1 Mg Tab, 1 TAB PO DAILY for 90 Days, #90 03/15/25 Temazepam (Temazepam) 30 Mg Cap, 1 CAP PO DAILY for 30 Days, #30 03/15/25 Atorvastatin Calcium (ATORVASTATIN CALCIUM) 20 Mg Tab, 1 TAB PO DAILY for 90 Days, #135 03/15/25 Losartan Potassium (Losartan Potassium) 50 Mg Tab, 1 TAB PO DAILY for 90 Days, #90 03/15/25 Metformin Hydrochloride (Metformin Hcl) 850 Mg Tab, 850 MG PO BID for 90 Days, #180 03/15/25 Information Source: Patient, Emergency Med Personnel Mode of Arrival: EMS Severity: Moderate Timing: Days Duration: Since onset Prehospital treatment: Case Picker Past Medical History PAST MEDICAL HISTORY: CVA, DM, Liver, Schizophrenia Surgical History: Unknown Family History Family History: Unknown Social History Smoker: Unknown Alcohol: Unknown Drugs: Unknown Lives In: Home Constitutional: reports: fatigue, weakness; denies: chills, diaphoresis, fever, malaise, sweats, others EENTM: denies: blurred vision, double vision, ear bleeding, ear discharge, ear drainage, ear pain, ear ringing, eye pain, eye redness, hearing loss, mouth pain, mouth swelling, nasal discharge, nose bleeding, nose congestion, nose pain, photophobia, tearing, throat pain, throat swelling, voice changes, others Respiratory: denies: cough, hemoptysis, orthopnea, SOB at rest, shortness of breath, SOB with excertion, stridor, wheezing, others Cardiovascular: denies: chest pain, dizzy spells, diaphoresis, Dyspnea on exertion, edema, irregular heart beat, left arm pain, lightheadedness, palpitations, PND, syncope, others Gastrointestinal: denies: abdomen distended, abdominal pain, blood streaked bowels, constipated, diarrhea, dysphagia, difficulty swallowing, hematemesis, melena, nausea, poor appetite, poor fluid intake, rectal bleeding, rectal pain, vomiting, others Genitourinary: denies: burning, dysuria, flank pain, frequency, hematuria, incontinence, penile discharge, penile sore, pain, testicle pain, testicle swelling, urgency, others Neurological: reports: tremors; denies: dizziness, fainting, headache, left sided numbness, left sided weakness, numbness, paresthesia, pre-existing deficit, right sided numbness, right sided weakness, seizure, speech problems, tingling, weakness, others Musculoskeletal: denies: back pain, gout, joint pain, joint swelling, muscle pain, muscle stiffness, neck pain, others Integumetry: denies: bruises, change in color, change in hair/nails, dryness, laceration, lesions, lumps, rash, wounds, others Allergic/Immunocompromised: denies: Difficulty Healing, Frequent Infections, Hives, Itching, others Hematologic/Lymphatic: denies: anemia, blood clots, easy bleeding, easy bruising, swollen glands, others Endocrine: reports: excessive thirst; denies: excessive hunger, excessive sweating, excessive urination, flushing, intolerance to cold, intolerance to heat, unexplained weight gain, unexplained weight loss, others Psychiatric: denies: anxiety, bipolar disorder, depression, hopeless, panic disorder, schizophrenia, sleepless, suicidal, others Physical Exam General Appearance: Moderate Distress (Moderate distress due to tremor concerns. 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 Was a procedure done?: No Differential Dx Considerations may include: Sepsis, electrolyte abnormality, hyperglycemia, DKA, acute renal injury, acute coronary syndrome X-Ray, Labs, Meds, VS Vital Signs Date Time Temp Pulse Resp B/P (MAP) Pulse Ox O2 Delivery O2 Flow Rate FiO2 08/02/25 19:07 93 19 97 Room Air* 0 21 08/02/25 19:04 97.0 93 20 155/79 (104) 98 97.0 08/02/25 18:47 96 08/02/25 18:37 98.4 102 18 161/74 98 98.4 Lab Test 08/02/25 22:50 08/02/25 21:08 08/02/25 19:49 08/02/25 18:52 Range/Units POC Glucose 421 *H > 600 *H > 600 *H 70-106 mg/dl Troponin I High Sensitivity 3 L </=54 ng/L Test 08/02/25 18:44 08/02/25 18:30 08/02/25 18:29 Range/Units White Blood Count 7.9 4.4-10.8 10^3/uL Red Blood Count 4.15 L 4.5-5.90 10^6/uL Hemoglobin 12.8 L 13.5-17.5 g/dL Hematocrit 38.7 L 41.0-53.0 % Mean Corpuscular Volume 93.1 80.0-100.0 fL Mean Corpuscular Hemoglobin 30.8 28.0-32.0 pg Mean Corpuscular Hemoglobin Concent 33.1 32.0-36.0 g/dL Red Cell Distribution Width 13.5 11.8-14.3 % Platelet Count 518 H 140-450 10^3/uL Mean Platelet Volume 7.8 6.9-10.8 fL Neutrophils (%) (Auto) 86.7 H 37.0-80.0 % Lymphocytes (%) (Auto) 7.9 L 10.0-50.0 % Monocytes (%) (Auto) 4.5 0.0-12.0 % Eosinophils (%) (Auto) 0.4 0.0-7.0 % Basophils (%) (Auto) 0.5 0.0-2.0 % Neutrophils # (Auto) 6.8 1.6-8.6 10 ^3/uL Lymphocytes # (Auto) 0.6 0.4-5.4 10 ^3/uL Monocytes # (Auto) 0.4 0-1.3 10 ^3/uL Eosinophils # (Auto) 0 0-0.8 10 ^3/uL Basophils # (Auto) 0 0-0.2 10 ^3/uL Nucleated Red Blood Cells 0.0 % Sodium Level 131 L 136-145 mmol/L Potassium Level 5.2 H 3.5-5.1 mmol/L Chloride Level 96 L 98-107 mmol/L Carbon Dioxide Level 18 L 20-31 mmol/L Anion Gap 17 H 5-15 Blood Urea Nitrogen 30 H 9-23 mg/dL Creatinine 2.26 H 0.700-1.30 mg/dL Glomerular Filtration Rate Calc 32 >90 mL/min BUN/Creatinine Ratio 13.3 10.0-20.0 Serum Glucose 815 *H 74-106 mg/dL Lactic Acid Level 1.5 0.4-2.0 mmol/L Calcium Level 8.9 8.7-10.4 mg/dL Total Bilirubin 0.2 0.2-1.0 mg/dL Aspartate Amino Transferase (AST) 8 L 13-40 U/L Alanine Aminotransferase (ALT) 13 7-40 U/L Alkaline Phosphatase 125 H 46-116 U/L Troponin I High Sensitivity 3 L </=54 ng/L B-Type Natriuretic Peptide 33.21 0-100 pg/mL Total Protein 6.7 5.7-8.2 g/dL Albumin 4.1 3.2-4.8 g/dL Lipase 45 12-53 U/L POC Glucose > 600 *H > 600 *H 70-106 mg/dl Current Medications Medications (Trade) Dose Ordered Sig/Niesha Route Start Time Stop Time Status Last Admin Sodium Chloride 1,000 ml @ 200 mls/hr Q5H ONCE IV 08/02/25 18:00 08/02/25 22:59 DC 08/02/25 18:57 Insulin Human (Reg)/Sodium Chloride 100 ml @ 0.5 mls/hr Q24H IV 08/02/25 19:15 08/02/25 19:39 Diagnostic Test (Pha) (Accu-Chek Comfort Curve T) 1 strip Q90MIN 08/02/25 19:30 08/03/25 00:15 X-Ray, Labs, Meds, VS Comment All studies performed the ED were evaluated by me personally. Serum studies revealed an anemic state, mild hyponatremia, what appears to be acute on chronic renal concerns as well as a significant hyperglycemic state of over 600. EKG revealed a sinus rhythm with a rate of 96. Abnormal R-wave progression noted as well as a OK interval 143 and a QT interval of 358. ABG was pending at time of this note. Patient required an insulin drip to manage his blood sugar concerns while in the ED. Blood sugar had improved to the low 400s at time of this note. Patient will be admitted for significant hyperglycemic concerns, concerning renal issues, electrolyte and anemic concerns as well as discussions with the family about hospice options and long-term management. Time of 1ST Reevaluation: 00:27 Reevaluation 1ST: Improved Consultation: PCP Patient Education/Counseling: Diagnosis, Treatment Family Education/Counseling: Diagnosis, Treatment SEPSIS Sepsis Screen Date sepsis recognized/suspect: Aug 02, 2025 Time Sepsis recognized/suspect: 1906 Recent Procedure: No On Antibiotic Therapy: No Respiratory Rate >20: No Heart Rate >90: No Temp<36 C (96.8 F) or >38.3 C: No SBP <90 or MAP <65 mmHG: No New Acute Mental Status Change: No Is the patient on CPAP, BIPAP,: No Physician Orders Heplock Iv (08/02/25 ) Urinalysis (08/02/25 17:59) Straightcath If Unable To Void (08/02/25 17:59) Continuous Ekg Monitoring 08,12,16,20,00,04 (08/02/25 17:59) Accucheck (08/02/25 17:59) Insulin Drip 100 Unit/100ml (Myxredlin 1 (08/02/25 19:15) Glucose Blood (Accu-Chek Comfort Curve T (08/02/25 19:30) D/C All Diabetic Medications (08/02/25 19:01) Insulin Drip Protocol (08/02/25 19:01) Dextrose 50% Syringe (08/02/25 19:15) Insulin Lantus (Glargine) (Lantus) (08/03/25 10:00) Beta-Hydroxybutyrate (08/03/25 00:20) Abg W/ Co-Ox (08/03/25 00:20) Vital Signs Date Time Temp Pulse Resp B/P (MAP) Pulse Ox O2 Delivery O2 Flow Rate FiO2 08/02/25 19:07 93 19 97 Room Air* 0 21 08/02/25 19:04 97.0 93 20 155/79 (104) 98 97.0 08/02/25 18:47 96 08/02/25 18:37 98.4 102 18 161/74 98 98.4 Laboratory Tests Test 08/02/25 18:44 Lactic Acid Level 1.5 mmol/L (0.4-2.0) White Blood Count 7.9 10^3/uL (4.4-10.8) Medications Medications Dose Ordered Sig/Niesha Route Start Time Stop Time Status Last Admin Dose Admin Diagnostic Test (Pha) 1 strip Q90MIN 08/02/25 19:30 08/03/25 00:15 Insulin Human (Reg)/Sodium Chloride 100 ml @ 0.5 mls/hr Q24H IV 08/02/25 19:15 08/02/25 19:39 Sodium Chloride 1,000 ml @ 200 mls/hr Q5H ONCE IV 08/02/25 18:00 08/02/25 22:59 DC 08/02/25 18:57 Departure 1 Departure Time of Disposition: 00:27 Impression: Primary Impression: Hyperglycemia due to diabetes mellitus Additional Impressions: Acute kidney injury superimposed on chronic kidney disease Anemia Hyponatremia Disposition: ADMITTED INPATIENT Condition: Fair Discharged With: Self Critical Care Note Critical Care Time?: No Stability Stability form required: No Heart Score Heart Score: Heart Score Response (Comments) Value History Slightly Suspicious 0 EKG Repolarization Disturb 1 Age 45-64 1 Risk Factors 1 or 2 risk factors 1 Troponin Normal limit 0 Total 3 SHELIA ROSENBAUM PAC Aug 03, 2025 00:29
[2025-08-03] MEDS ORDERED: NITROGLYCERIN 0.4 MG SL TAB SL PRN (00:45)
[2025-08-03] MEDS ORDERED: ONDANSETRON HCL 4 MG/2 ML VIAL IV PRN (00:45)
[2025-08-03] MEDS ORDERED: MORPHINE SULFATE INJ 2 MG/ml SYRG IV PRN (00:45)
[2025-08-03] MEDS ORDERED: ACETAMINOPHEN 325 MG TAB PO PRN (00:45)
[2025-08-03] MEDS ORDERED: HYDROcodone-ACET 5/325MG TAB PO PRN (00:45)
[2025-08-03] MEDS ORDERED: DOCUSATE SOD 100 MG CAP PO PRN (00:45)
--- NOTE | 2025-08-03 01:00 | DVHHP2 ---
History of Present Illness Reason for Visit: Diabetes mellitus with ketoacidosis History of Present Illness The patient is a 59-year-old male with past medical history of CVA, diabetes mellitus, liver disease, and schizophrenia who presented to [facility] ED for evaluation of tremor. As reported by EMS, patient was on hospice, so his PCP took him off his insulin medication. Patient noted to have elevated blood sugar so family member started dispensing insulin to address his high glucose concern. Patient started experiencing bilateral hand tremors, mildly confused, and generalized weakness. Patient was seen and evaluated in the ED, laboratory data shows WBC 7.9, hemoglobin 12.8, hematocrit 38.7, platelets 518, sodium 131, potassium 5.2, BUN 30, creatinine 2.26, GFR 32, glucose 815, anion gap 17, calcium 8.9, BNP 33.21, lipase 45, troponin 3, blood pressure 155/79, heart rate 92, temperature 97.6 F, O2 saturation 97% on oxygen. Patient was started on insulin drip, please see medication orders section in the computer. On my assessment, patient denied chest pain, no headache, dizziness, diaphoresis, shortness of breaths, no diarrhea, nausea, vomiting, fever, no chills. Patient was admitted for further evaluation and medical management. Past Medical History CVA, DM, Liver disease, Schizophrenia Past Surgical History Unknown Family History Reviewed, noncontributory to the management of this case. Past Social History The patient lives at home, no history of smoking, alcohol or illicit drugs abuse on file. Review of Systems Constitutional: Yes: Weakness, Other (Fatigue); No: Fever, Chills, Sweats, Malaise Eyes: No: Pain, Vision change, Conjunctivae inflammation, Eyelid inflammation, Other, Redness ENT: No: Ear pain, Ear discharge, Nose pain, Nose discharge, Nose congestion, Mouth pain, Mouth swelling, Throat pain, Throat swelling, Other Respiratory: No: Cough, Dry, Shortness of breath, SOB with excertion, Wheezing, Hemoptysis, Pleuritic Pain, Sputum, Wheezing, Other Cardiovascular: No: Chest Pain, Palpitations, Orthopnea, Paroxysmal Noc. Dyspnea, Edema, Lt Headedness, Other Gastrointestinal: No: Nausea, Vomiting, Abdominal Pain, Diarrhea, Constipation, Melena, Hematochezia, Other Genitourinary: No Dysuria, No Frequency, No Incontinence, No Hematuria, No Retention, No Other Musculoskeletal: No: other, neck pain, shoulder pain, arm pain, back pain, hand pain, leg pain, foot pain Skin: No: Rash, Lesions, Jaundice, Bruising, Other Neurological: Confusion, Other (Tremors); No: Weakness, Numbness, Incoordination, Change in speech, Seizures Allergies: Coded Allergies: NO KNOWN ALLERGIES (Unverified , 03/15/25) Medications Current Medications Medications Dose Ordered Sig/Niesha Route Start Time Stop Time Status Last Admin Dose Admin Insulin Human (Reg)/Sodium Chloride 100 ml @ 0.5 mls/hr Q24H IV 08/02/25 19:15 08/02/25 19:39 0.5 MLS/HR Diagnostic Test (Pha) 1 strip Q90MIN 08/02/25 19:30 08/03/25 00:15 1 STRIP Dextrose 50 ml PRN PRN IV 08/02/25 19:15 Insulin Glargine 15 units DAILY SC 08/03/25 10:00 Exam Vital Signs Vital Signs Date Time Temp Pulse Resp B/P (MAP) Pulse Ox O2 Delivery O2 Flow Rate FiO2 08/02/25 19:07 93 19 97 Room Air* 0 21 08/02/25 19:04 97.0 155/79 (104) 97.0 General Appearance: Alert, Cooperative, No acute distress, Other (Oriented x2) HEENT: Atraumatic, PERRLA, EOMI, Mucous membr. moist/pink Respiratory: Normal air movement Cardiovascular: Regular rate, Normal S1, Normal S2, No murmurs Abdominal: Normal bowel sounds, Soft, No tenderness, No hepatospenomegaly, No masses Extremities: No clubbing, No cyanosis, No edema, Normal pulses, No tenderness/swelling Skin: No rashes, No breakdown, No significant lesion Neuro: Normal speech, Normal tone, Sensation intact, Cranial nerves 3-12 NL, Reflexes 2+, Other (Generalized weakness) Psych/Mental Status: Mood NL, Other (Altered mental status) Labs/Xrays Labs Test 08/03/25 00:14 08/02/25 19:49 08/02/25 18:44 Range/Units POC Glucose 294 H 70-106 mg/dl Troponin I High Sensitivity 3 L </=54 ng/L White Blood Count 7.9 4.4-10.8 10^3/uL Red Blood Count 4.15 L 4.5-5.90 10^6/uL Hemoglobin 12.8 L 13.5-17.5 g/dL Hematocrit 38.7 L 41.0-53.0 % Mean Corpuscular Volume 93.1 80.0-100.0 fL Mean Corpuscular Hemoglobin 30.8 28.0-32.0 pg Mean Corpuscular Hemoglobin Concent 33.1 32.0-36.0 g/dL Red Cell Distribution Width 13.5 11.8-14.3 % Platelet Count 518 H 140-450 10^3/uL Mean Platelet Volume 7.8 6.9-10.8 fL Neutrophils (%) (Auto) 86.7 H 37.0-80.0 % Lymphocytes (%) (Auto) 7.9 L 10.0-50.0 % Monocytes (%) (Auto) 4.5 0.0-12.0 % Eosinophils (%) (Auto) 0.4 0.0-7.0 % Basophils (%) (Auto) 0.5 0.0-2.0 % Neutrophils # (Auto) 6.8 1.6-8.6 10 ^3/uL Lymphocytes # (Auto) 0.6 0.4-5.4 10 ^3/uL Monocytes # (Auto) 0.4 0-1.3 10 ^3/uL Eosinophils # (Auto) 0 0-0.8 10 ^3/uL Basophils # (Auto) 0 0-0.2 10 ^3/uL Nucleated Red Blood Cells 0.0 % Sodium Level 131 L 136-145 mmol/L Potassium Level 5.2 H 3.5-5.1 mmol/L Chloride Level 96 L 98-107 mmol/L Carbon Dioxide Level 18 L 20-31 mmol/L Anion Gap 17 H 5-15 Blood Urea Nitrogen 30 H 9-23 mg/dL Creatinine 2.26 H 0.700-1.30 mg/dL Glomerular Filtration Rate Calc 32 >90 mL/min BUN/Creatinine Ratio 13.3 10.0-20.0 Serum Glucose 815 *H 74-106 mg/dL Lactic Acid Level 1.5 0.4-2.0 mmol/L Calcium Level 8.9 8.7-10.4 mg/dL Total Bilirubin 0.2 0.2-1.0 mg/dL Aspartate Amino Transferase (AST) 8 L 13-40 U/L Alanine Aminotransferase (ALT) 13 7-40 U/L Alkaline Phosphatase 125 H 46-116 U/L B-Type Natriuretic Peptide 33.21 0-100 pg/mL Total Protein 6.7 5.7-8.2 g/dL Albumin 4.1 3.2-4.8 g/dL Lipase 45 12-53 U/L SEPSIS Sepsis Screen Date sepsis recognized/suspect: Aug 02, 2025 Time Sepsis recognized/suspect: 1906 Recent Procedure: No On Antibiotic Therapy: No Respiratory Rate >20: No Heart Rate >90: No Temp<36 C (96.8 F) or >38.3 C: No SBP <90 or MAP <65 mmHG: No New Acute Mental Status Change: No Is the patient on CPAP, BIPAP,: No Physician Orders Heplock Iv (08/02/25 ) Urinalysis (08/02/25 17:59) Straightcath If Unable To Void (08/02/25 17:59) Continuous Ekg Monitoring 08,12,16,20,00,04 (08/02/25 17:59) Accucheck (08/02/25 17:59) Insulin Drip 100 Unit/100ml (Myxredlin 1 (08/02/25 19:15) Glucose Blood (Accu-Chek Comfort Curve T (08/02/25 19:30) D/C All Diabetic Medications (08/02/25 19:01) Insulin Drip Protocol (08/02/25 19:01) Dextrose 50% Syringe (08/02/25 19:15) Insulin Lantus (Glargine) (Lantus) (08/03/25 10:00) Beta-Hydroxybutyrate (08/03/25 00:20) Abg W/ Co-Ox (08/03/25 00:20) Complete Blood Count (08/03/25 04:00) Comprehensive Metabolic Panel (08/03/25 04:00) Atorvastatin (Lipitor) (08/03/25 22:00) Amlodipine Tablet (Norvasc Tablet) (08/03/25 10:00) Metoprolol Tartrate Tablet (Lopressor Ta (08/03/25 10:00) Fluoxetine Capsule (Prozac Capsule) (08/03/25 10:00) Gabapentin Capsule (Neurontin Capsule) (08/03/25 06:00) Folic Acid Tablet (08/03/25 10:00) Famotidine Injection (Pepcid Injection) (08/03/25 10:00) Consistent Carb(Ccho)Diabetes (08/03/25 Breakfast) Hemoglobin A1c (08/03/25:34) Apixaban (Eliquis) (08/03/25 10:00) Admit (08/03/25:34) Allergies (08/03/25:34) Code Status (08/03/25:34) 0.9% Ns 1000 Ml (08/03/25 00:45) Oxygen Per Hour (08/03/25:34) Hydrocodone-Acet 5/325mg Tab ([place] 5/32 (08/03/25 00:45) Ondansetron Hcl (Zofran) (08/03/25 00:45) Docusate Sodium Capsule (Colace Capsule) (08/03/25 00:45) Fall Risk Precautions In Place QSHIFT (08/03/25:34) Complete Blood Count (08/04/25 04:00) Comprehensive Metabolic Panel (08/04/25 04:00) Condition: Critical (08/03/25:34) Acetaminophen Tablet (Tylenol Tablet) (08/03/25 00:45) Maintain Bed Rest (08/03/25:34) Sequential Compression Device (08/03/25 ) Nitroglycerin Sublingual (Ntrostat Subli (08/03/25 00:45) Morphine Sulfate Injection (08/03/25 00:45) Stat Ekg For Chest Pain (08/03/25:34) Notify Md Of Changes From Base (08/03/25:34) Weld Inspector For 24 Hours (08/03/25:) Emergency Dysrhythmia Protocol (08/03/25) Rhythm Strips Once Every Shift (08/03/25:34) Oxygen By Nasal Cannula (08/03/25:) NS (08/03/25 00:45) Vital Signs Date Time Temp Pulse Resp B/P (MAP) Pulse Ox O2 Delivery O2 Flow Rate FiO2 08/02/25 19:07 93 19 97 Room Air* 0 21 08/02/25 19:04 97.0 93 20 155/79 (104) 98 97.0 08/02/25 18:47 96 08/02/25 18:37 98.4 102 18 161/74 98 98.4 Laboratory Tests Test 08/02/25 18:44 Lactic Acid Level 1.5 mmol/L (0.4-2.0) White Blood Count 7.9 10^3/uL (4.4-10.8) Medications Medications Dose Ordered Sig/Niesha Route Start Time Stop Time Status Last Admin Dose Admin Diagnostic Test (Pha) 1 strip Q90MIN 08/02/25 19:30 08/03/25 00:15 1 STRIP Insulin Human (Reg)/Sodium Chloride 100 ml @ 0.5 mls/hr Q24H IV 08/02/25 19:15 08/02/25 19:39 0.5 MLS/HR Sodium Chloride 1,000 ml @ 200 mls/hr Q5H ONCE IV 08/02/25 18:00 08/02/25 22:59 DC 08/02/25 18:57 200 MLS/HR Assessment/Plan Assessment/Plan Diabetes mellitus with ketoacidosis Hyponatremia Anemia, unspecified Hyperglycemia due to diabetes mellitus Acute kidney injury superimposed on chronic kidney disease Plan 1. Admit to intensive care unit 2. Breathing treatment 3. Pain control management 4. Management of fluids and electrolytes 5. Consultation for hospitalist 6. Diagnostic tests chest x-ray 7. DVT prophylaxis-on Eliquis 8. Repeat labs CBC, CMP in a.m. 9. Continue with current medical management 10. Treatment plan discussed with patient and RN. Patient verbalized mehran hardwick. Plan discussed with: Patient, Other (RN) My Orders Orders - JAILENE WEEKS DNP Procedure Category Date Status Time Complete Blood Count LAB 08/03/25 Verified 04:00 Comprehensive LAB 08/03/25 Verified Metabolic Panel 04:00 Atorvastatin (Lipitor) PHA 08/03/25 Verified 22:00 Amlodipine Tablet PHA 08/03/25 Verified (Norvasc Tablet) 10:00 Metoprolol Tartrate PHA 08/03/25 Verified Tablet (Lopressor Ta 10:00 Fluoxetine Capsule PHA 08/03/25 Verified (Prozac Capsule) 10:00 Gabapentin Capsule PHA 08/03/25 Verified (Neurontin Capsule) 06:00 Folic Acid Tablet PHA 08/03/25 Verified 10:00 Famotidine Injection PHA 08/03/25 Verified (Pepcid Injection) 10:00 Consistent DIET 08/03/25 Verified Carb(Ccho)Diabetes Breakfast Hemoglobin A1c LAB 08/03/25 Verified 00:34 Apixaban (Eliquis) PHA 08/03/25 Verified 10:00 Admit ADMIT 08/03/25 Verified 00:34 Allergies [facility] 08/03/25 Verified 00:34 Code Status CODE 08/03/25 Verified 00:34 0.9% Ns 1000 Ml PHA 08/03/25 Verified 00:45 Oxygen Per Hour RT 08/03/25 Verified 00:34 Hydrocodone-Acet PHA 08/03/25 Verified 5/325mg Tab ([place] 00:45 Ondansetron Hcl PHA 08/03/25 Verified (Zofran) 00:45 Docusate Sodium PHA 08/03/25 Verified Capsule (Colace 00:45 Fall Risk Precautions [facility] 08/03/[address] 00:34 Complete Blood Count LAB 08/04/25 Verified 04:00 Comprehensive LAB 08/04/25 Verified Metabolic Panel 04:00 Condition: Critical [facility] 08/03/25 Verified 00:34 Acetaminophen Tablet [facility] 08/03/25 Verified (Tylenol Tablet) 00:45 Maintain Bed Rest [facility] 08/03/25 Verified 00:34 Sequential [facility] 08/03/25 Verified Compression Device Nitroglycerin [facility] 08/03/25 Verified Sublingual (Ntrostat 00:45 Morphine Sulfate [facility] 08/03/25 Verified Injection 00:45 Stat Ekg For Chest [facility] 08/03/25 Verified Pain 00:34 Notify Md Of Changes [facility] 08/03/25 Verified From Base 00:34 Weld Inspector For [facility] 08/03/25 Verified 24 Hours 00:34 Emergency Dysrhythmia [facility] 08/03/25 Verified Protocol 00:34 Rhythm Strips Once [facility] 08/03/25 Verified Every Shift 00:34 Oxygen By Nasal RT 08/03/25 Verified Cannula 00:34 NS PHA 08/03/25 Verified 00:45 Problem List: (1) Diabetes mellitus with ketoacidosis (2) Hyponatremia (3) Anemia, unspecified (4) Hyperglycemia due to diabetes mellitus (5) Acute kidney injury superimposed on chronic kidney disease Date of Service: Aug 03, 2025 Billing Provider: JAILENE WEEKS DNP Common Visit Codes: [id number] INP/OBS CARE (HIGH), [id number] CARE- EACH +30MIN JAILENE WEEKS DNP Aug 03, 2025 01:00
[2025-08-03] MEDS: SODIUM CHLORIDE 0.9% 500 ML IV ONE (01:10)
[2025-08-03] MEDS: SODIUM CHLORIDE 0.9% 1,000 ML IV SCH (01:11)
[2025-08-03 01:28] LABS: Base Excess -1.2 mmol/L (-2.0-3.0)
[2025-08-03] MEDS: MIDODRINE HCL 10 MG TAB PO ONE (02:43)
[2025-08-03] MEDS: MIDODRINE HCL 10 MG TAB PO SCH (06:00)
[2025-08-03] MEDS: D5W/SOD CHLO 0.9% 1,000 ML IV ONE (06:32)
[2025-08-03 07:20] LABS: Hemoglobin 14.2 g/dL (13.5-17.5)
[2025-08-03 07:22] LABS: Hematocrit 41.5 % (41.0-53.0); Mean Corpuscular Hemoglobin 30.6 pg (28.0-32.0); Mean Corpuscular Volume 89.7 fL (80.0-100.0); Nucleated Red Blood Cells % 0.0 %
[2025-08-03 07:30] LABS: Alanine Aminotransferase 13 U/L (7-40); Albumin 4.4 g/dL (3.2-4.8); Alkaline Phosphatase 112 U/L (46-116); Anion Gap 14 (5-15); BUN/Creatinine Ratio 16.0 (10.0-20.0); Calcium 9.5 mg/dL (8.7-10.4); Carbon Dioxide 22 mmol/L (20-31); Chloride 107 mmol/L (98-107); Potassium 3.9 mmol/L (3.5-5.1); Sodium 143 mmol/L (136-145); Total Protein 7.1 g/dL (5.7-8.2)
[2025-08-03 07:44] LABS: Bilirubin, Total 0.2 mg/dL (0.2-1.0); Blood Urea Nitrogen 29 mg/dL (9-23); Glucose 107 mg/dL (74-106)
--- NOTE | 2025-08-03 09:30 | DVHPN2 ---
Reviewed: Care Plan, H&P, Labs, Medications, Previous Orders, Radiology Changes from previous H/P or p: Changes Objective Vitals Vital Signs Date Time Temp Pulse Resp B/P (MAP) Pulse Ox O2 Delivery O2 Flow Rate FiO2 08/03/25 09:00 90 14 162/87 (112) 100 08/03/25 08:00 Room Air* 0 21 08/02/25 20:00 97.9 97.9 General Appearance: Alert, No acute distress, Other (Confused) HEENT: Atraumatic Lungs: Clear to auscultation, Normal air movement Cardiovascular: Regular rate, Normal S1, Normal S2 Abdomen: Normal bowel sounds, Soft, No tenderness Extremities: Other (Right above knee amputation) Neuro: Normal speech, Cranial nerves 3-12 NL Skin: Other (Stage II ulcer over left Achillis/left ankle with no signs of infection) Psych/Mental Status: Other (Confused) Medications Current Medications Medications Dose Ordered Sig/Niesha Route Start Time Stop Time Status Last Admin Dose Admin Insulin Human (Reg)/Sodium Chloride 100 ml @ 0.5 mls/hr Q24H IV 08/02/25 19:15 08/02/25 19:39 0.5 MLS/HR Diagnostic Test (Pha) 1 strip Q90MIN 08/02/25 19:30 08/03/25 07:30 1 STRIP Dextrose 50 ml PRN PRN IV 08/02/25 19:15 Insulin Glargine 15 units DAILY SC 08/03/25 10:00 Atorvastatin Calcium 20 mg HS PO 08/03/25 22:00 Amlodipine Besylate 5 mg DAILY PO 08/03/25 10:00 Metoprolol Tartrate 25 mg BID PO 08/03/25 10:00 Fluoxetine HCl 20 mg DAILY PO 08/03/25 10:00 Gabapentin 300 mg BID PO 08/03/25 10:00 Folic Acid 1 mg DAILY PO 08/03/25 10:00 Famotidine 20 mg DAILY IV 08/03/25 10:00 Apixaban 2.5 mg BID PO 08/03/25 10:00 Acetaminophen/ Hydrocodone Bitart 1 tab Q4HP PRN PO 08/03/25 00:45 Ondansetron HCl 4 mg Q4HP PRN IV 08/03/25 00:45 Docusate Sodium 100 mg BIDPRN PRN PO 08/03/25 00:45 Acetaminophen 650 mg Q6HP PRN PO 08/03/25 00:45 Nitroglycerin 0.4 mg Q5MINP PRN SL 08/03/25 00:45 Morphine Sulfate 2 mg Q30M PRN IV 08/03/25 00:45 Midodrine 10 mg TID@0600,1200,1800 PO 08/03/25 06:00 08/03/25 06:00 10 MG Laboratory Results Laboratory Tests 08/03/25 06:59 Chemistry Test 08/02/25 18:44 08/03/25 06:59 Albumin 4.1 g/dL (3.2-4.8) 4.4 g/dL (3.2-4.8) Calcium Level 8.9 mg/dL (8.7-10.4) 9.5 mg/dL (8.7-10.4) Total Protein 6.7 g/dL (5.7-8.2) 7.1 g/dL (5.7-8.2) Lipid panel Test 08/02/25 18:44 Lipase 45 U/L (12-53) Cardiac Markers Test 08/02/25 18:44 B-Type Natriuretic Peptide 33.21 pg/mL (0-100) LFT Test 08/02/25 18:44 08/03/25 06:59 Alanine Aminotransferase (ALT) 13 U/L (7-40) 13 U/L (7-40) Alkaline Phosphatase 125 U/L (46-116) H 112 U/L (46-116) Aspartate Amino Transferase (AST) 8 U/L (13-40) L 14 U/L (13-40) Total Bilirubin 0.2 mg/dL (0.2-1.0) 0.2 mg/dL (0.2-1.0) HgA1c, TSH Test 08/03/25 01:38 Hemoglobin A1c > 14.0 % A1C (<5.7) H Blood Gas Results Test 08/03/25 01:15 Arterial Blood pH 7.388 (7.350-7.450) FiO2 % 21.0 Labs and/or images reviewed: Labs reviewed by me, Image(s) reviewed by me Assessment/Plan Assessment/Plan A 59-year-old male patient; with multiple comorbidities; who presented to the emergency department with altered mental status. Acute metabolic/toxic encephalopathy due to DKA DKA due to stopping insulin treatment by home hospice team as per the patient's mother Uncontrolled diabetes mellitus type 2 with hemoglobin A1c above 14% History of multiple strokes with residual cognitive decline Metabolic acidosis due to DKA Bipolar disease with schizophrenic affective disorder Hypertensive kidney and heart disease ELVIS on CKD; most likely vasomotor nephropathy Hyperkalemia due to ELVIS Leukocytosis and thrombocytosis; most likely reactive due to DKA Status post right above knee amputation Stage II ulcer on left Achillis/left ankle; self-inflicted as per the patient's mother Diabetic neuropathy Cognitive decline Reviewed available lab work and imaging studies To avoid nephrotoxic agents To continue IV fluids To wean off insulin infusion as per protocol as anion gap closed To replace and correct electrolytes as indicated To switch to subcutaneous insulin and start diet when appropriate To continue apixaban and atorvastatin; unclear why the patient is on apixaban; the patient's mother denied that the patient takes apixaban to her knowledge; but the patient was managed by home hospice; will try to reach out to home hospice on Monday to get further information To continue antihypertensive medications and adjust according to blood pressure monitoring To continue home psychiatric medications To continue pain management as indicated Wound care consulted Stopped midodrine Continues to be under MARIELA level of care Continue close monitoring Goals of care discussed with the patient's mother (POA; [phone]) for 20 minutes; full code; wants the patient to be discharged home on insulin therapy The patient's mother requested to be updated via phone on daily basis 110 minutes of critical care time Late Entry. This medical document was created using an electronic medical record system with computerized dictation system. Although this document has been carefully reviewed, there might still be some phonetic and typographical errors. These areas are purely typographical due to imperfections of the software programs, and do not reflect any compromise in the patient's medical care. Plan discussed with: Other (Mother; nurse) Date of Service: Aug 03, 2025 Billing Provider: HUA PARADA MD Common Visit Codes: 08494-[id number] CARE 30-74 MIN (110 minutes), 90483-[id number] CARE-EACH +30MIN Secondary Visit Codes: [id number] CARE PLAN 30 MINUTES (20 minutes) HUA PARADA MD Aug 03, 2025 09:30
[2025-08-03] MEDS: APIXABAN 2.5 MG TAB PO SCH (09:38)
[2025-08-03] MEDS: METOPROLOL TARTRATE 25 MG TAB PO SCH (09:38)
[2025-08-03] MEDS: GABAPENTIN 300 MG CAP PO SCH (09:41)
[2025-08-03] MEDS: FOLIC ACID 1 MG TAB PO SCH (09:41)
[2025-08-03] MEDS: FAMOTIDINE (10MG/ML) 2ML VL IV SCH (09:42)
[2025-08-03] MEDS: INSULIN LANTUS (GLARGINE) 1 /0.01ml (100units/ml) SC SCH ×2 (09:44→22:16)
[2025-08-03 14:06] LABS: Potassium 4.1 mmol/L (3.5-5.1); Sodium 144 mmol/L (136-145)
[2025-08-03 14:07] LABS: Anion Gap 14 (5-15); Carbon Dioxide 21 mmol/L (20-31)
[2025-08-03 14:08] LABS: Calcium 8.6 mg/dL (8.7-10.4); Chloride 109 mmol/L (98-107)
[2025-08-03 14:12] LABS: BUN/Creatinine Ratio 17.3 (10.0-20.0)
[2025-08-03 14:16] LABS: Blood Urea Nitrogen 27 mg/dL (9-23); Glucose 251 mg/dL (74-106)
[2025-08-03] MEDS ORDERED: DEXTROSE (50%) 50ML SYRG IV PRN (16:15)
[2025-08-03] MEDS: InsuLIN REG 1unit/0.01ml Soln (100units/ml) SC SCH (20:00)
[2025-08-03] MEDS: ACCU-CHEK COMFORT CURVE STRIP VI SCH (20:27)
[2025-08-03] MEDS: ATORVASTATIN 20 MG TAB PO SCH (22:14)
[2025-08-04] MEDS: SODIUM CHLORIDE 0.9% 500 ML IV ONE (05:21)
[2025-08-04 06:35] LABS: Hematocrit 41.1 % (41.0-53.0); Hemoglobin 13.7 g/dL (13.5-17.5); Mean Corpuscular Hemoglobin 30.4 pg (28.0-32.0); Mean Corpuscular Volume 91.5 fL (80.0-100.0); Nucleated Red Blood Cells % 0.2 %
[2025-08-04 06:45] LABS: Albumin 4.1 g/dL (3.2-4.8); Alkaline Phosphatase 103 U/L (46-116); Anion Gap 14 (5-15); BUN/Creatinine Ratio 10.7 (10.0-20.0); Blood Urea Nitrogen 14 mg/dL (9-23); Calcium 8.8 mg/dL (8.7-10.4); Carbon Dioxide 21 mmol/L (20-31); Total Protein 7.1 g/dL (5.7-8.2)
[2025-08-04 06:47] LABS: Alanine Aminotransferase < 9 U/L (7-40); Bilirubin, Total 0.2 mg/dL (0.2-1.0); Chloride 111 mmol/L (98-107); Glucose 122 mg/dL (74-106); Potassium 3.3 mmol/L (3.5-5.1); Sodium 146 mmol/L (136-145)
[2025-08-04 15:00] VITALS: O2SAT 100
[2025-08-04 16:36] VITALS: BP 142/96; PULSE 71; RESP 16; TEMP 97.4; O2SAT 100
--- NOTE | 2025-08-04 18:18 | DVHPN2 ---
Reviewed: Care Plan, H&P, Labs, Medications, Previous Orders, Radiology Changes from previous H/P or p: No Changes General: Per HPI Objective Vitals Vital Signs Date Time Temp Pulse Resp B/P (MAP) Pulse Ox O2 Delivery O2 Flow Rate FiO2 08/04/25 16:36 97.4 71 16 142/96 (111) 100 97.4 08/04/25 15:00 Room Air* 0 21 Intake/Output Intake and Output 08/04/25 07:00 Intake Total 814.0 ml Output Total 900 ml Balance -86.0 ml Intake Oral 0 ml IV Total 814.0 ml Output Urine Total 900 ml # Voids 1 # Bowel Movements 1 Exam General Appearance: Alert, No acute distress, Other (Confused) HEENT: Atraumatic Lungs: Clear to auscultation, Normal air movement Cardiovascular: Regular rate, Normal S1, Normal S2 Abdomen: Normal bowel sounds, Soft, No tenderness Extremities: Other (Right above knee amputation) Neuro: Normal speech, Cranial nerves 3-12 NL Skin: Other (Stage II ulcer over left Achillis/left ankle with no signs of infection) Psych/Mental Status: Other (Confused) General Appearance: Alert, No acute distress, Other (Confused) HEENT: Atraumatic Lungs: Clear to auscultation, Normal air movement Cardiovascular: Regular rate, Normal S1, Normal S2 Abdomen: Normal bowel sounds, Soft, No tenderness Extremities: Other (Right above knee amputation) Neuro: Normal speech, Cranial nerves 3-12 NL Skin: Other (Stage II ulcer over left Achillis/left ankle with no signs of infection) Psych/Mental Status: Other (Confused) Medications Current Medications Medications Dose Ordered Sig/Niesha Route Start Time Stop Time Status Last Admin Dose Admin Atorvastatin Calcium 20 mg HS PO 08/03/25 22:00 08/03/25 22:14 20 MG Amlodipine Besylate 5 mg DAILY PO 08/03/25 10:00 08/04/25 09:39 5 MG Metoprolol Tartrate 25 mg BID PO 08/03/25 10:00 08/04/25 09:39 25 MG Fluoxetine HCl 20 mg DAILY PO 08/03/25 10:00 08/04/25 09:39 20 MG Gabapentin 300 mg BID PO 08/03/25 10:00 08/04/25 09:39 300 MG Folic Acid 1 mg DAILY PO 08/03/25 10:00 08/04/25 09:39 1 MG Famotidine 20 mg DAILY IV 08/03/25 10:00 08/04/25 09:38 20 MG Apixaban 2.5 mg BID PO 08/03/25 10:00 08/04/25 09:39 2.5 MG Acetaminophen/ Hydrocodone Bitart 1 tab Q4HP PRN PO 08/03/25 00:45 Ondansetron HCl 4 mg Q4HP PRN IV 08/03/25 00:45 Docusate Sodium 100 mg BIDPRN PRN PO 08/03/25 00:45 Acetaminophen 650 mg Q6HP PRN PO 08/03/25 00:45 Nitroglycerin 0.4 mg Q5MINP PRN SL 08/03/25 00:45 Morphine Sulfate 2 mg Q30M PRN IV 08/03/25 00:45 Insulin Glargine 20 units BID SC 08/03/25 22:00 08/04/25 09:40 20 UNITS Diagnostic Test (Pha) 1 strip IQ4HR 08/03/25 20:00 08/04/25 17:00 1 STRIP Insulin Human Regular IQ4HR SC 08/03/25 20:00 08/04/25 17:02 4 UNITS Dextrose 50 ml UD PRN IV 08/03/25 16:15 Laboratory Results Laboratory Tests 08/04/25 05:42 Chemistry Test 08/04/25 05:42 Albumin 4.1 g/dL (3.2-4.8) Calcium Level 8.8 mg/dL (8.7-10.4) Total Protein 7.1 g/dL (5.7-8.2) LFT Test 08/04/25 05:42 Alanine Aminotransferase (ALT) < 9 U/L (7-40) Alkaline Phosphatase 103 U/L (46-116) Aspartate Amino Transferase (AST) 16 U/L (13-40) Total Bilirubin 0.2 mg/dL (0.2-1.0) Labs and/or images reviewed: Labs reviewed by me, Image(s) reviewed by me Assessment/Plan Assessment/Plan 59-year-old male with past medical history of CVA, diabetes mellitus, liver disease, and schizophrenia who presented to [facility] ED for evaluation of tremor. As reported by EMS, patient was on hospice, so his PCP took him off his insulin medication. Patient noted to have elevated blood sugar so family member started dispensing insulin to address his high glucose concern. Patient started experiencing bilateral hand tremors, mildly confused, and generalized weakness. 08/04: patient here for tremors. noted to be early DKA. unclear precipitant, possible medication or diet noncompliance. diagnosis: Diabetes mellitus, concern for hyperglycemia, with early DKA Hyponatremia, hyperglycemia mediated, Anemia, unspecified Hyperglycemia due to diabetes mellitus Acute kidney injury superimposed on chronic kidney disease plan: - mild achs sliding scale - DM diet - continue home meds - stop iv fluids - ok to hydrate well tele full code Plan discussed with: Patient Date of Service: Aug 04, 2025 Billing Provider: SUKI ARAUJO MD Common Visit Codes: [id number] INP/OBS CARE(HIGH) SUKI ARAUJO MD Aug 04, 2025 18:18
[2025-08-04 20:00] VITALS: PULSE 77; RESP 18; O2SAT 100
[2025-08-04 21:00] VITALS: BP 140/77; PULSE 77; RESP 18; TEMP 98.4; O2SAT 100
[2025-08-05 01:00] VITALS: BP 136/70; PULSE 69; RESP 18; TEMP 98.1; O2SAT 98
[2025-08-05 05:00] VITALS: BP 118/64; PULSE 66; RESP 18; TEMP 98.4; O2SAT 99
[2025-08-05 07:07] LABS: Hematocrit 37.6 % (41.0-53.0); Hemoglobin 13.0 g/dL (13.5-17.5); Mean Corpuscular Hemoglobin 30.6 pg (28.0-32.0); Mean Corpuscular Volume 88.9 fL (80.0-100.0); Nucleated Red Blood Cells % 0.0 %
[2025-08-05 07:26] LABS: Alanine Aminotransferase 13 U/L (7-40); Albumin 3.7 g/dL (3.2-4.8); Alkaline Phosphatase 90 U/L (46-116); Anion Gap 13 (5-15); BUN/Creatinine Ratio 15.3 (10.0-20.0); Blood Urea Nitrogen 17 mg/dL (9-23); Carbon Dioxide 23 mmol/L (20-31); Glucose 76 mg/dL (74-106); Sodium 144 mmol/L (136-145); Total Protein 6.3 g/dL (5.7-8.2)
[2025-08-05 07:34] LABS: Bilirubin, Total 0.2 mg/dL (0.2-1.0); Calcium 8.4 mg/dL (8.7-10.4); Chloride 108 mmol/L (98-107); Potassium 3.0 mmol/L (3.5-5.1)
[2025-08-05 08:00] VITALS: PULSE 66
[2025-08-05 08:58] VITALS: BP 129/74; PULSE 70; RESP 18; TEMP 98.8; O2SAT 99
[2025-08-05] MEDS ORDERED: INSUINJ37 SC (11:02)
[2025-08-05] MEDS ORDERED: INSU100I61 SC (11:02)
--- NOTE | 2025-08-05 11:09 | DVHDS2 ---
Discharge Summary Date of Admission Aug 03, 2025 at 00:34 Date of Discharge: Aug 05, 2025 Labs/Diagnostic Data: Laboratory Results Test 08/05/25 08:02 08/05/25 06:00 08/03/25 01:38 08/03/25 01:15 POC Glucose 102 mg/dl (70-106) White Blood Count 7.1 10^3/uL (4.4-10.8) Red Blood Count 4.24 10^6/uL (4.5-5.90) Hemoglobin 13.0 g/dL (13.5-17.5) Hematocrit 37.6 % (41.0-53.0) Mean Corpuscular Volume 88.9 fL (80.0-100.0) Mean Corpuscular Hemoglobin 30.6 pg (28.0-32.0) Mean Corpuscular Hemoglobin Concent 34.4 g/dL (32.0-36.0) Red Cell Distribution Width 13.3 % (11.8-14.3) Platelet Count 444 10^3/uL (140-450) Mean Platelet Volume 7.8 fL (6.9-10.8) Neutrophils (%) (Auto) 63.0 % (37.0-80.0) Lymphocytes (%) (Auto) 23.7 % (10.0-50.0) Monocytes (%) (Auto) 8.1 % (0.0-12.0) Eosinophils (%) (Auto) 4.2 % (0.0-7.0) Basophils (%) (Auto) 1.0 % (0.0-2.0) Neutrophils # (Auto) 4.5 10 ^3/uL (1.6-8.6) Lymphocytes # (Auto) 1.7 10 ^3/uL (0.4-5.4) Monocytes # (Auto) 0.6 10 ^3/uL (0-1.3) Eosinophils # (Auto) 0.3 10 ^3/uL (0-0.8) Basophils # (Auto) 0.1 10 ^3/uL (0-0.2) Nucleated Red Blood Cells 0.0 % Sodium Level 144 mmol/L (136-145) Potassium Level 3.0 mmol/L (3.5-5.1) Chloride Level 108 mmol/L (98-107) Carbon Dioxide Level 23 mmol/L (20-31) Anion Gap 13 (5-15) Blood Urea Nitrogen 17 mg/dL (9-23) Creatinine 1.11 mg/dL (0.700-1.30) Glomerular Filtration Rate Calc 76 mL/min (>90) BUN/Creatinine Ratio 15.3 (10.0-20.0) Serum Glucose 76 mg/dL (74-106) Calcium Level 8.4 mg/dL (8.7-10.4) Total Bilirubin 0.2 mg/dL (0.2-1.0) Aspartate Amino Transferase (AST) 18 U/L (13-40) Alanine Aminotransferase (ALT) 13 U/L (7-40) Alkaline Phosphatase 90 U/L (46-116) Total Protein 6.3 g/dL (5.7-8.2) Albumin 3.7 g/dL (3.2-4.8) Hemoglobin A1c > 14.0 % A1C (<5.7) Blood Gas Specimen Type Arterial Blood Gas Sample Site Right radial Blood Gas Patient Temperature 37.0 Arterial Blood Date Drawn [id number] Arterial Blood pH 7.388 (7.350-7.450) Arterial Blood Partial Pressure CO2 40.2 mmHg (35.0-48.0) Arterial Blood Partial Pressure O2 63.7 mmHg (83.0-108.0) Arterial Blood HCO3 23.7 mmol/L (21.0-28.0) Arterial Blood Oxygen Saturation 92.8 % (94.0-98.0) Arterial Blood Base Excess -1.2 mmol/L (-2.0-3.0) Arterial Blood Oxyhemoglobin 91.7 % (94.0-98.0) Arterial Blood Carboxyhemoglobin 1.0 % (0.5-1.5) Arterial Blood Methemoglobin 0.2 % (0.0-1.5) Carmelo Test Modified Blood Gas Total Hemoglobin 14.00 g/dL (13.5-17.5) Blood Gas Modality Room air FiO2 % 21.0 Test 08/02/25 19:49 08/02/25 18:44 Troponin I High Sensitivity 3 ng/L (</=54) Lactic Acid Level 1.5 mmol/L (0.4-2.0) B-Type Natriuretic Peptide 33.21 pg/mL (0-100) Lipase 45 U/L (12-53) Beta-Hydroxybutyric Acid > 4.500 mmol/L (< 0.4) Other Laboratory Tests 08/05/25 06:00 Brief Hx & Hospital Course: 59-year-old male with past medical history of CVA, diabetes mellitus, liver disease, and schizophrenia who presented to [facility] ED for evaluation of tremor. As reported by EMS, patient was on hospice, so his PCP took him off his insulin medication. Patient noted to have elevated blood sugar so family member started dispensing insulin to address his high glucose concern. Patient started experiencing bilateral hand tremors, mildly confused, and generalized weakness. 08/04: patient here for tremors. noted to be early DKA. unclear precipitant, possible medication or diet noncompliance. 08/05- stable on 20u lantus bid, insulin in low 100s, will pull back little and discharge with a SSI. VS stable. stable to dc with plan below. diagnosis: DKA Diabetes mellitus, concern for hyperglycemia, with early DKA Hyponatremia, hyperglycemia mediated, Anemia, unspecified Hyperglycemia due to diabetes mellitus ELVIS due to VMN Acute kidney injury superimposed on chronic kidney disease plan: - take Lantus 15 units b.i.d. -Take NovoLog up to 3 times daily with meals with sliding scale -Continue other home medications -Strict diabetic diet -Hydrate well, water, at least 1.2 L a day -Follow up with PCP to review discharge Condition at Discharge: Fair Final Diagnosis/Problems List DKA Diabetes mellitus, concern for hyperglycemia, with early DKA Hyponatremia, hyperglycemia mediated, Anemia, unspecified Hyperglycemia due to diabetes mellitus ELVIS due to VMN Acute kidney injury superimposed on chronic kidney disease Discharge Disposition: Home Discharge Instruct/Medications Scheduled Amlodipine Besylate (Amlodipine Besylate), 1 TAB PO DAILY, (Reported) Apixaban Base (Eliquis), 1 TAB PO BID, (Reported) Atorvastatin Calcium (Atorvastatin Calcium), 1 TAB PO DAILY, (Reported) Baclofen (Baclofen), 1 TAB PO BID, (Reported) Ertugliflozin l-Pyroglutamic A (Steglatro), 1 TAB PO DAILY, (Reported) Fluoxetine HCl (Fluoxetine HCl), 2 CAP PO QAM, (Reported) Folic Acid (Folic Acid), 1 TAB PO DAILY, (Reported) Gabapentin (Gabapentin), 1 CAP PO TID, (Reported) Hydroxyzine HCl (Hydroxyzine Hydrochloride), 1 TAB PO TID, (Reported) Insulin Glargine (Lantus), 40 UNIT SC HS, (Reported) Insulin Glargine (Lantus Solostar), 15 UNIT SC BID Insulin Lispro (Insulin Lispro), 0-6 UNIT SC QID, (Reported) Losartan Potassium (Losartan Potassium), 1 TAB PO DAILY, (Reported) Metformin Hydrochloride (Metformin Hcl), 850 MG PO BID, (Reported) Metoprolol Tartrate (Lopressor Tablet), 1 TAB PO BID, (Reported) Olanzapine (Olanzapine), 1 TAB PO QPM, (Reported) Quetiapine Fumerate (Quetiapine Fumarate), 1 TAB PO DAILY, (Reported) Temazepam (Temazepam), 1 CAP PO DAILY, (Reported) Scheduled PRN Insulin Aspart (Novolog Flexpen Relion), 1-10 UNIT SC TIDWM PRN Discharge Statement: "Patient was advised to return to the ER or call 911 if any headaches, dizziness, shortness of breath, chest pain, abdominal pain, bleeding, fevers, or worsening of medical condition. Patient was counseled about treatment plan, medications, possible side effects, patientverbalized understanding. All questions were answered to the best of my ability. This discharge took greater then 30 minutes in planning, reviewing documentation, counseling the patient, and discussing with other team members." ASSESSMENT ASSESSMENT Assessment Date of Service: Aug 05, 2025 Billing Provider: SUKI ARAUJO MD Common Visit Codes: [id number] DISCH DAY >30min SUKI ARAUJO MD Aug 05, 2025 11:09
[2025-08-05] MEDS: POTASSIUM CHL 20MEQ/100ML 100 ML IV ONE (11:27)
[2025-08-05] MEDS: POTASSIUM EFFERVESENT TAB 25 MEQ PO ONE (11:27)
[2025-08-05 13:00] VITALS: BP 147/68; PULSE 80; RESP 16; TEMP 98.5; O2SAT 100
== END 2025-08-05 16:20 | disposition home or self-care (01) | DRG 420 ==
LOC: ER 17:45 → EDBD 17:45 → OVERFLOW 08-03 00:34 → TELE-CENTR 08-04 14:14
PROVIDERS: ADMIT Student in an Organized Health Care Education/Training Program; ATTEND Student in an Organized Health Care Education/Training Program
DX: E11.10 Type 2 diabetes mellitus with ketoacidosis without coma (principal); N17.0 Acute kidney failure with tubular necrosis; G92.8 Other toxic encephalopathy; L89.522 Pressure ulcer of left ankle, stage 2; E87.5 Hyperkalemia; F31.9 Bipolar disorder, unspecified; N18.9 Chronic kidney disease, unspecified; D63.1 Anemia in chronic kidney disease; D72.829 Elevated white blood cell count, unspecified; D75.839 Thrombocytosis, unspecified; I13.10 Hypertensive heart and chronic kidney disease without heart failure, with stage 1 through stage 4 chronic kidney disease, or unspecified chronic kidney disease; E11.22 Type 2 diabetes mellitus with diabetic chronic kidney disease; F20.9 Schizophrenia, unspecified; Z89.611 Acquired absence of right leg above knee; Z86.73 Personal history of transient ischemic attack (TIA), and cerebral infarction without residual deficits; Z83.3 Family history of diabetes mellitus; Z79.01 Long term (current) use of anticoagulants
CPT/HCPCS: 36415; 36600; 80048; 80053; 82010; 82805; 82962; 83036; 83605; 83690; 83880; 84484; 85025; 93005; 96361; 96365; G0378; J1815; J3480; J3490

== ENCOUNTER 2025-08-06 14:50 | Inpatient (IN) | payer MEDICAID ==
[~2025-08-06] VITALS: Ht 154.9 cm; Wt 62.3 kg
[~2025-08-06 14:50] MED LIST changes: -INSLANTI SC; -INSU100I52 SC; +INSU100I61 SC; +INSUINJ37 SC
[2025-08-06 16:06] VITALS: PULSE 70; RESP 15; O2SAT 99
[2025-08-06 16:30] VITALS: PULSE 68; RESP 16; O2SAT 99
[2025-08-06] MEDS: SODIUM CHLORIDE 0.9% 1,000 ML IV ONE ×4 (17:06→21:15)
[2025-08-06 17:08] LABS: Base Excess -7.8 mmol/L (-2.0-3.0)
--- NOTE | 2025-08-06 17:18 | ED.PDOC ---
History of Present Illness HPI Comments Mr. Del Angel is a 59 year old male with PMHx of type 2 diabetes mellitus, schizophrenia, CVA, and liver disease who was sent today from the discharge clinic due to low blood pressure and hyperglycemia. The patient is a poor historian. Per staff at discharge clinic, the patient's blood pressure was 70s/40s and blood glucose was over 400. The patient was discharged from this institution yesterday where he was treated for DKA. The patient states that he feels well, denies any nausea, vomiting, fever, diarrhea, dysuria, cough, chest pain, and palpitations. On initial evaluation in the ED, the patient's blood pressure was 85/49 mmHg and blood sugar was 586. Two 1000 cc boluses were admi nistered and labs were drawn for further evaluation. Chief Complaint: Hyperglycemia Time Seen by MD: 15:04 Allergies: Coded Allergies: NO KNOWN ALLERGIES (Unverified , 03/15/25) Home Meds Active Scripts Insulin Aspart (Novolog Flexpen Relion) 100 Unit/Ml Inj, 1-10 UNIT SC TIDWM PRN, #1 INJ 1 Refill [id number]; 180=4u; 240=6u; 300=8u; 350=10u; >400-12u+ED Prov:SUKI ARAUJO MD 08/05/25 Insulin Glargine (Lantus Solostar) 100 Unit/Ml Inj, 15 UNIT SC BID for 30 Days, #3 INJ 1 Refill Prov:SUKI ARAUJO MD 08/05/25 Reported Medications Baclofen (Baclofen) 20 Mg Tab, 1 TAB PO BID for 50 Days, #100 04/02/25 Gabapentin (Gabapentin) 400 Mg Cap, 1 CAP PO TID for 90 Days, #270 04/02/25 Hydroxyzine HCl (Hydroxyzine Hydrochloride) 50 Mg Tab, 1 TAB PO TID for 30 Days, #90 04/02/25 Metoprolol Tartrate (LOPRESSOR TABLET) 50 Mg Tb, 1 TAB PO BID for 30 Days, #60 04/02/25 Amlodipine Besylate (Amlodipine Besylate) 10 Mg Tab, 1 TAB PO DAILY for 30 Days, #30 04/02/25 Olanzapine (OLANZAPINE) 2.5 Mg Tab, 1 TAB PO QPM for 30 Days, #30 04/02/25 Fluoxetine HCl (Fluoxetine HCl) 20 Mg Cap, 2 CAP PO QAM for 30 Days, #60 04/02/25 Apixaban Base (ELIQUIS) 5 Mg Tab, 1 TAB PO BID for 90 Days, #180 03/15/25 Ertugliflozin l-Pyroglutamic A (Steglatro) 5 Mg Tab, 1 TAB PO DAILY for 90 Days, #90 03/15/25 Quetiapine Fumerate (QUETIAPINE FUMARATE) 100 Mg Tab, 1 TAB PO DAILY for 30 Days, #30 03/15/25 Folic Acid (Folic Acid) 1 Mg Tab, 1 TAB PO DAILY for 90 Days, #90 03/15/25 Temazepam (Temazepam) 30 Mg Cap, 1 CAP PO DAILY for 30 Days, #30 03/15/25 Atorvastatin Calcium (ATORVASTATIN CALCIUM) 20 Mg Tab, 1 TAB PO DAILY for 90 Days, #135 03/15/25 Losartan Potassium (Losartan Potassium) 50 Mg Tab, 1 TAB PO DAILY for 90 Days, #90 03/15/25 Metformin Hydrochloride (Metformin Hcl) 850 Mg Tab, 850 MG PO BID for 90 Days, #180 03/15/25 Discontinued Reported Medications Insulin Lispro (Insulin Lispro) 100 Unit/Ml Inj, 0-6 UNIT SC QID for 30 Days, #10 INJECT 0-6 UNITS UNDER THE SKIN FOUR TIMES DAILY BEFORE MEALS AND AT BEDTIME. 04/02/25 Insulin Glargine (Lantus) 100 Unit/Ml Inj, 40 UNIT SC HS for 75 Days, #30 03/15/25 Information Source: Patient, [facility] Mode of Arrival: Wheelchair Severity: Moderate Timing: Hours Duration: Since onset Prehospital treatment: Accucheck (Over 400) Medication Refill: For: Diabetes Past Medical History PAST MEDICAL HISTORY: CVA, DM, Liver, Schizophrenia Surgical History: AKA Family History Family History: Unknown Family History (Other): Patient is a poor historian Social History Smoker: Unknown Alcohol: Unknown Drugs: Unknown Lives In: Home Constitutional: denies: chills, fatigue, fever, malaise, sweats, weakness EENTM: reports: throat swelling; denies: mouth pain, nasal discharge, nose bleeding, nose congestion, nose pain, photophobia, throat pain Respiratory: denies: cough, shortness of breath Cardiovascular: denies: chest pain, dizzy spells, lightheadedness, palpitations Physical Exam General Appearance: Obese HEENT: Normal ENT Inspection, PERRL/EOMI, Pharynx Normal Neck: Full Range of Motion, Non-Tender, Normal Inspection Respiratory: No Accessory Muscle Use, No Respiratory Distress, Normal Breath Sounds Cardiovascular: No Edema, Regular Rate/Rhythm, Tachycardia, Other (Pulses present in left foot, absence of right leg.) Breast Exam: Deferred Gastrointestinal: LLQ (Tenderness to palpation in LLQ ), No Pulsatile Mass, Normal Bowel Sounds, Tenderness Genitalia: Deferred Pelvic: Deferred Rectal: Deferred Extremities: Normal inspection (of left leg), Normal range of motion (of left leg ), Non-tender (of left leg ), No pedal edema (of left leg ), Other (Abscence of right leg below the hip) Neurologic: Other (The patient is oriented in person, place, situation, but not in time ) Cerebellar Function: Normal Reflexes: Normal (left leg ) Skin: Wounds (Presence of wound on posterior aspect of left ankle) Lymphatic: No Adenopathy Was a procedure done? Was a procedure done?: No EKG EKG : Pulse Rate (adult): 72 [place]: Normal Cardiac Rhythm: NSR Block: IVCD, None ST: Normal Comments Abnormal r wave progression Differential Dx Considerations may include: DKA, simple hyperglycemia, sepsis, electrolyte abnormality X-Ray, Labs, Meds, VS Vital Signs Date Time Temp Pulse Resp B/P (MAP) Pulse Ox O2 Delivery O2 Flow Rate FiO2 08/06/25 18:15 97.7 65 12 91/55 (67) 100 97.7 08/06/25 18:05 67 17 94/49 (64) 99 08/06/25 17:45 65 18 88/52 (64) 99 08/06/25 16:06 97.7 70 15 93/55 (68) 99 97.7 08/06/25 16:06 70 15 99 Room Air* 0 21 08/06/25 15:06 72 08/06/25 14:54 97.9 75 18 85/49 100 97.9 Lab Test 08/06/25 18:55 08/06/25 18:34 08/06/25 18:15 08/06/25 16:36 Range/Units Lactic Acid Level Pending Urine Color Pending Urine Clarity Pending Urine pH Pending Urine Specific [place] Pending Urine Protein Pending Urine Ketones Pending Urine Blood Pending Urine Nitrite Pending Urine Bilirubin Pending Urine Urobilinogen Pending Urine Leukocyte Esterase Pending Urine RBC Pending Urine Microscopic WBC Pending Urine Squamous Epithelial Cells Pending Urine Bacteria Pending Urine Glucose Pending POC Glucose 297 H 70-106 mg/dl Blood Gas Specimen Type Arterial Blood Gas Sample Site Right radial Blood Gas Patient Temperature 37.0 Arterial Blood Date Drawn [id number] Arterial Blood pH 7.328 L 7.350-7.450 Arterial Blood Partial Pressure CO2 33.6 L 35.0-48.0 mmHg Arterial Blood Partial Pressure O2 72.0 L 83.0-108.0 mmHg Arterial Blood HCO3 17.2 L 21.0-28.0 mmol/L Arterial Blood Oxygen Saturation 92.4 L 94.0-98.0 % Arterial Blood Base Excess -7.8 L -2.0-3.0 mmol/L Arterial Blood Oxyhemoglobin 91.7 L 94.0-98.0 % Arterial Blood Carboxyhemoglobin 0.3 L 0.5-1.5 % Arterial Blood Methemoglobin 0.5 0.0-1.5 % Carmelo Test Yes Blood Gas Total Hemoglobin 12.40 L 13.5-17.5 g/dL Blood Gas Modality Room air FiO2 % 21.0 Test 08/06/25 16:15 08/06/25 15:11 Range/Units White Blood Count 6.2 4.4-10.8 10^3/uL Red Blood Count 4.02 L 4.5-5.90 10^6/uL Hemoglobin 12.1 L 13.5-17.5 g/dL Hematocrit 36.8 L 41.0-53.0 % Mean Corpuscular Volume 91.5 80.0-100.0 fL Mean Corpuscular Hemoglobin 30.0 28.0-32.0 pg Mean Corpuscular Hemoglobin Concent 32.8 32.0-36.0 g/dL Red Cell Distribution Width 13.2 11.8-14.3 % Platelet Count 363 140-450 10^3/uL Mean Platelet Volume 8.2 6.9-10.8 fL Neutrophils (%) (Auto) 72.7 37.0-80.0 % Lymphocytes (%) (Auto) 17.9 10.0-50.0 % Monocytes (%) (Auto) 6.4 0.0-12.0 % Eosinophils (%) (Auto) 2.3 0.0-7.0 % Basophils (%) (Auto) 0.7 0.0-2.0 % Neutrophils # (Auto) 4.5 1.6-8.6 10 ^3/uL Lymphocytes # (Auto) 1.1 0.4-5.4 10 ^3/uL Monocytes # (Auto) 0.4 0-1.3 10 ^3/uL Eosinophils # (Auto) 0.1 0-0.8 10 ^3/uL Basophils # (Auto) 0 0-0.2 10 ^3/uL Nucleated Red Blood Cells 0.1 % Sodium Level 136 # 136-145 mmol/L Potassium Level 4.9 3.5-5.1 mmol/L Chloride Level 103 98-107 mmol/L Carbon Dioxide Level 20 20-31 mmol/L Anion Gap 13 5-15 Blood Urea Nitrogen 30 #H 9-23 mg/dL Creatinine 1.78 H 0.700-1.30 mg/dL Glomerular Filtration Rate Calc 43 >90 mL/min BUN/Creatinine Ratio 16.9 10.0-20.0 Serum Glucose 369 #H 74-106 mg/dL Lactic Acid Level 3.2 *H 0.4-2.0 mmol/L Calcium Level 8.0 L 8.7-10.4 mg/dL Total Bilirubin 0.2 0.2-1.0 mg/dL Aspartate Amino Transferase (AST) 29 13-40 U/L Alanine Aminotransferase (ALT) 24 7-40 U/L Alkaline Phosphatase 108 46-116 U/L Troponin I High Sensitivity < 3 L </=54 ng/L Total Protein 5.7 5.7-8.2 g/dL Albumin 3.4 3.2-4.8 g/dL Lipase 66 H 12-53 U/L Beta-Hydroxybutyric Acid 0.188 < 0.4 mmol/L POC Glucose 586 *H 70-106 mg/dl Current Medications Medications (Trade) Dose Ordered Sig/Niesha Route Start Time Stop Time Status Last Admin Sodium Chloride 1,000 ml @ 1,000 mls/hr Q1H ONCE IV 08/06/25 16:00 08/06/25 16:59 DC 08/06/25 17:06 Sodium Chloride 1,000 ml @ 1,000 mls/hr Q1H ONCE IV 08/06/25 18:30 08/06/25 19:29 08/06/25 18:54 Sodium Chloride 1,000 ml @ 1,000 mls/hr Q1H ONCE IV 08/06/25 18:30 08/06/25 19:29 08/06/25 18:54 Time of 1ST Reevaluation: 18:45 Reevaluation 1ST: Improved Patient Education/Counseling: Diagnosis, Treatment Family Education/Counseling: No Family Present SEPSIS Sepsis Screen Date sepsis recognized/suspect: Aug 06, 2025 Time Sepsis recognized/suspect: 1456 Recent Procedure: No On Antibiotic Therapy: No Respiratory Rate >20: No Heart Rate >90: No Temp<36 C (96.8 F) or >38.3 C: No SBP <90 or MAP <65 mmHG: Yes New Acute Mental Status Change: No Is the patient on CPAP, BIPAP,: No Physician Orders Blood Culture (08/06/25 15:27) Beta-Hydroxybutyrate (08/06/25 15:27) Abg W/ Co-Ox (08/06/25 15:30) Electrocardigram (08/06/25 15:30) Urinalysis (08/06/25 15:43) Chest Xray 1 View (08/06/25 15:49) Ct Ab Pel With Iv Con Only (08/06/25 15:49) Sodium Chloride 0.9% (08/06/25 18:30) Sodium Chloride 0.9% (08/06/25 18:30) Vital Signs Date Time Temp Pulse Resp B/P (MAP) Pulse Ox O2 Delivery O2 Flow Rate FiO2 08/06/25 18:15 97.7 65 12 91/55 (67) 100 97.7 08/06/25 18:05 67 17 94/49 (64) 99 08/06/25 17:45 65 18 88/52 (64) 99 08/06/25 16:06 97.7 70 15 93/55 (68) 99 97.7 08/06/25 16:06 70 15 99 Room Air* 0 21 08/06/25 15:06 72 08/06/25 14:54 97.9 75 18 85/49 100 97.9 Laboratory Tests Test 08/06/25 16:15 08/06/25 18:55 Lactic Acid Level 3.2 mmol/L (0.4-2.0) *H Pending White Blood Count 6.2 10^3/uL (4.4-10.8) Medications Medications Dose Ordered Sig/Niesha Route Start Time Stop Time Status Last Admin Dose Admin Sodium Chloride 1,000 ml @ 1,000 mls/hr Q1H ONCE IV 08/06/25 16:00 08/06/25 16:59 DC 08/06/25 17:06 Sodium Chloride 1,000 ml @ 1,000 mls/hr Q1H ONCE IV 08/06/25 18:30 08/06/25 19:29 08/06/25 18:54 Sodium Chloride 1,000 ml @ 1,000 mls/hr Q1H ONCE IV 08/06/25 18:30 08/06/25 19:29 08/06/25 18:54 Departure 1 Departure Time of Disposition: 19:22 Impression: Primary Impression: DKA (diabetic ketoacidosis) Disposition: 30 STILL A PATIENT Admit to: Tele Condition: Stable Additional Instructions: The patient was sent to the emergency room from the discharge clinic due to hypotension and hyperglycemia. Initial workup is concerning for DKA Blood pressure was corrected with 3 1000 cc boluses of NS. CBC, CMP, lactic acid, and blood cultures have been taken. Lactic acid 3.2 ABG concerning for metabolic acidosis. The patient has been given 1 dose of ceftriaxone. Critical Care Note Critical Care Time?: No Stability Stability form required: AGUSTIN Dixon RESIDENT Aug 06, 2025 17:18
[2025-08-06 17:41] LABS: Hematocrit 36.8 % (41.0-53.0); Hemoglobin 12.1 g/dL (13.5-17.5); Mean Corpuscular Hemoglobin 30.0 pg (28.0-32.0); Mean Corpuscular Volume 91.5 fL (80.0-100.0); Nucleated Red Blood Cells % 0.1 %
[2025-08-06 17:45] VITALS: PULSE 65; RESP 18; O2SAT 99
[2025-08-06 17:56] LABS: Alanine Aminotransferase 24 U/L (7-40); Albumin 3.4 g/dL (3.2-4.8); Alkaline Phosphatase 108 U/L (46-116); Anion Gap 13 (5-15); BUN/Creatinine Ratio 16.9 (10.0-20.0); Chloride 103 mmol/L (98-107); Potassium 4.9 mmol/L (3.5-5.1); Total Protein 5.7 g/dL (5.7-8.2)
[2025-08-06 18:00] LABS: Bilirubin, Total 0.2 mg/dL (0.2-1.0); Blood Urea Nitrogen 30 mg/dL (9-23); Calcium 8.0 mg/dL (8.7-10.4); Carbon Dioxide 20 mmol/L (20-31); Glucose 369 mg/dL (74-106); Sodium 136 mmol/L (136-145)
[2025-08-06 18:12] LABS: Lactic Acid w/Reflex 3.2 mmol/L (0.4-2.0)
[2025-08-06 19:43] LABS: Urine Protein, UAD TRACE (Negative)
--- NOTE | 2025-08-06 20:43 | DVH ---
Exam: CT CT AB PEL WITH IV CON ONLY History: Abdominal Pain COMPARISON: CT CT AB PEL WO CON-NO ORAL OR IV on DOS: 03/15/25 Technique: Multidetector spiral CT of the abdomen and pelvis was performed from lung bases to pubic s ymphysis. Intravenous contrast was administered during this examination. Portal venous imaging was obtained. Axial, coronal and sagittal multiplanar reformats were performed by the technologist on a separate workstation. Radiation Dose : 1. Abdomen/Pelvis: CTDIvol 19.42mGy, DLP 3.92 mGy*cm. CONTRAST: Type of contrast: Omnipaque Contrast injected: 100 ml Findings: Lung Bases: Bibasilar nodular densities may reflect mild pneumonia. Liver: The liver is normal in size. No focal lesions. Normal hepatic vascular enhancement. Gallbladder and Biliary Tree: Unremarkable Spleen: Unremarkable Pancreas: The pancreas is normal in appearance without focal lesions or abnormal enhancement. Adrenal Glands: Unremarkable Kidneys: No hydronephrosis. Bladder: Unremarkable Bowel: The stomach is grossly normal in appearance. Small bowel and colon are normal in caliber and d istribution. Normal appendix is visualized in the right lower quadrant without findings of appendici tis. Ascites: Absent Lymphadenopathy: No mesenteric, retroperitoneal or periportal lymphadenopathy. Abdominal Wall and Mesentery: Unremarkable. Vasculature: The visualized abdominal aorta is normal in size and caliber. Abdominal and pelvic vess els demonstrate normal enhancement. Pelvic Organs: Unremarkable Musculoskeletal: No aggressive focal bony lesions, acute fractures or dislocation. IMPRESSION: 1. No acute abdominal or pelvic finding. 2. Bibasilar nodular densities may reflect mild pneumonia. Radiation optimization: All CT scans at this facility use at least one of these dose optimization surinder hniques: automated exposure control mA and/or kV adjustment per patient size (includes targeted exam s where dose is matched to clinical indication) or iterative reconstruction.
[2025-08-06] MEDS ORDERED: ACETAMINOPHEN 325 MG TAB PO PRN (20:45)
[2025-08-06] MEDS ORDERED: DEXTROSE (50%) 50ML SYRG IV PRN (20:45)
--- NOTE | 2025-08-06 21:04 | DVH ---
CHEST RADIOGRAPH Indication: SOB Technique: Single frontal view of the chest was obtained Comparison: US CHEST ULTRASOUND on DOS: 04/15/25, XY CHEST XRAY 1 VIEW on DOS: 04/10/25, XY CHEST XRAY 1 VIEW on DOS: 04/08/25, XY CHEST PORTABLE on DOS: 04/08/25, XY CHEST PORTABLE on DOS: 04/07/25 FINDINGS/IMPRESSION: Low lung volumes. Prominence of the interstitial markings. Unchanged cardiomedi astinal silhouette. No pleural effusion or pneumothorax. Unchanged osseous structures.
[2025-08-06] MEDS: ACCU-CHEK COMFORT CURVE STRIP VI SCH (23:05)
[2025-08-06] MEDS: InsuLIN REG 1unit/0.01ml Soln (100units/ml) SC SCH (23:08)
[2025-08-06 23:32] VITALS: BP 101/61; PULSE 61; RESP 10; O2SAT 99
[2025-08-07] VITALS (8 sets, daily range): BP systolic 108–150; BP diastolic 62–90; PULSE 57–98; RESP 16–17; TEMP 97.3–98.4; O2SAT 92–100
--- NOTE | 2025-08-07 01:05 | DVHHP2 ---
History of Present Illness Reason for Visit: Hyperglycemia History of Present Illness 59-year-old male presents for evaluation of hyperglycemia. Patient had a follow up appointment today post discharge. He was noted to be hypotensive and with a blood sugar greater than 500. Patient also reports mild dysuria. No nausea or abdominal pain. No fever or chills. No other acute complaints reported. Past Medical History Diabetes mellitus, CVA, liver disease, schizophrenia, hypertension Past Surgical History Right AKA Family History Noncontributory Smoke: No ALCOHOL: none Drugs: None Review of Systems Review of Systems Review of systems are currently negative otherwise addressed in HPI. Allergies: Coded Allergies: NO KNOWN ALLERGIES (Unverified , 03/15/25) Medications Current Medications Medications Dose Ordered Sig/Niesha Route Start Time Stop Time Status Last Admin Dose Admin Ceftriaxone Sodium 50 ml @ 100 mls/hr DAILY@09 IV 08/07/25 09:00 Diagnostic Test (Pha) 1 strip IQ4HR 08/07/25 00:00 08/06/25 23:05 1 STRIP Insulin Human Regular IQ4HR SC 08/07/25 00:00 08/06/25 23:08 2 UNITS Dextrose 50 ml UD PRN IV 08/06/25 20:45 Acetaminophen/ Hydrocodone Bitart 1 tab Q4HP PRN PO 08/06/25 20:45 Ondansetron HCl 4 mg Q4HP PRN IV 08/06/25 20:45 Acetaminophen 650 mg Q6HP PRN PO 08/06/25 20:45 Exam Vital Signs Vital Signs Date Time Temp Pulse Resp B/P (MAP) Pulse Ox O2 Delivery O2 Flow Rate FiO2 08/06/25 23:32 61 10 101/61 (74) 99 08/06/25 18:15 97.7 97.7 08/06/25 17:45 Room Air* 0 21 Exam Gen: 59-year-old male in mild distress Skin: Warm, dry, normal color and texture, no rash. HEENT: Normocephalic atraumatic, mucous membranes moist and pink. Neck: Cervical and supraclavicular nodes normal without enlargement, trachea is midline, thyroid gland is normal without masses. Pulmonary: Clear to auscultation and percussion bilaterally. Cardiac: Regular rate and rhythm. No murmur Abdomen: Soft, nontender, nondistended, bowel sounds present all 4 quadrants, no guarding, no rigidity, no organomegaly. Extremities: No cyanosis, clubbing, no edema Neuro: Cranial nerves II through XII grossly intact, normal affect and speech, no focal motor deficits. Labs/Xrays ORDERING PHYSICIAN: AGUSTIN RUIZ RESIDENT PROCEDURE(s): ABPLIV - CT AB PEL WITH IV CON ONLY REASON: Abdominal Pain ORDER NUMBER(s): [id number], ACCESSION NUMBER(s): [id number] Exam: CT CT AB PEL WITH IV CON ONLY History: Abdominal Pain COMPARISON: CT CT AB PEL WO CON-NO ORAL OR IV on DOS: 03/15/25 Technique: Multidetector spiral CT of the abdomen and pelvis was performed from lung bases to pubic symphysis. Intravenous contrast was administered during this examination. Portal venous imaging was obtained. Axial, coronal and sagittal multiplanar reformats were performed by the technologist on a separate workstation. Radiation Dose : 1. Abdomen/Pelvis: CTDIvol 19.42mGy, DLP 3.92 mGy*cm. CONTRAST: Type of contrast: Omnipaque Contrast injected: 100 ml Findings: Lung Bases: Bibasilar nodular densities may reflect mild pneumonia. Liver: The liver is normal in size. No focal lesions. Normal hepatic vascular e nhancement. Gallbladder and Biliary Tree: Unremarkable Spleen: Unremarkable Pancreas: The pancreas is normal in appearance without focal lesions or abnormal enhancement. Adrenal Glands: Unremarkable Kidneys: No hydronephrosis. Bladder: Unremarkable Bowel: The stomach is grossly normal in appearance. Small bowel and colon are normal in caliber and distribution. Normal appendix is visualized in the right lower quadrant without findings of appendicitis. Ascites: Absent Lymphadenopathy: No mesenteric, retroperitoneal or periportal lymphadenopathy. Abdominal Wall and Mesentery: Unremarkable. Vasculature: The visualized abdominal aorta is normal in size and caliber. Abdominal and pelvic vessels demonstrate normal enhancement. Pelvic Organs: Unremarkable Musculoskeletal: No aggressive focal bony lesions, acute fractures or dislocation. IMPRESSION: 1. No acute abdominal or pelvic finding. 2. Bibasilar nodular densities may reflect mild pneumonia. Radiation optimization: All CT scans at this facility use at least one of these dose optimization techniques: automated exposure control mA and/or kV adjustment per patient size (includes targeted exams where dose is matched to clinical indication) or iterative reconstruction. RING PHYSICIAN: AGUSTIN RUIZ RESIDENT PROCEDURE(s): CXR1 - CHEST XRAY 1 VIEW REASON: SOB ORDER NUMBER(s): [id number], ACCESSION NUMBER(s): [id number] CHEST RADIOGRAPH Indication: SOB Technique: Single frontal view of the chest was obtained Comparison: US CHEST ULTRASOUND on DOS: 04/15/25, XY CHEST XRAY 1 VIEW on DOS: 04/10/25, XY CHEST XRAY 1 VIEW on DOS: 04/08/25, XY CHEST PORTABLE on DOS: 04/08/25, XY CHEST PORTABLE on DOS: 04/07/25 FINDINGS/IMPRESSION: Low lung volumes. Prominence of the interstitial markings. Unchanged cardiomediastinal silhouette. No pleural effusion or pneumothorax. Unchanged osseous structures. Labs Test 08/06/25 23:00 08/06/25 18:55 08/06/25 18:34 08/06/25 16:36 Range/Units POC Glucose 159 H 70-106 mg/dl Lactic Acid Level 2.7 *H 0.4-2.0 mmol/L Urine Color Colorless Yellow Urine Clarity Clear Clear Urine pH 5.5 5.0-9.0 Urine Specific [place] 1.004 1.001-1.035 Urine Protein Trace H Negative Urine Ketones Negative Negative Urine Blood Negative Negative /uL Urine Nitrite Negative Negative Urine Bilirubin Negative Negative Urine Urobilinogen Normal Negative mg/dL Urine Leukocyte Esterase 2+ Negative /uL Urine RBC <1 0 - 3 /hpf Urine Microscopic WBC 19 H 0-3 /HPF Urine Squamous Epithelial Cells Few <5 /hpf Urine Bacteria None seen None Seen /hpf Urine Glucose 4+ H Normal mg/dL Blood Gas Specimen Type Arterial Blood Gas Sample Site Right radial Blood Gas Patient Temperature 37.0 Arterial Blood Date Drawn [id number] Arterial Blood pH 7.328 L 7.350-7.450 Arterial Blood Partial Pressure CO2 33.6 L 35.0-48.0 mmHg Arterial Blood Partial Pressure O2 72.0 L 83.0-108.0 mmHg Arterial Blood HCO3 17.2 L 21.0-28.0 mmol/L Arterial Blood Oxygen Saturation 92.4 L 94.0-98.0 % Arterial Blood Base Excess -7.8 L -2.0-3.0 mmol/L Arterial Blood Oxyhemoglobin 91.7 L 94.0-98.0 % Arterial Blood Carboxyhemoglobin 0.3 L 0.5-1.5 % Arterial Blood Methemoglobin 0.5 0.0-1.5 % Carmelo Test Yes Blood Gas Total Hemoglobin 12.40 L 13.5-17.5 g/dL Blood Gas Modality Room air FiO2 % 21.0 Test 08/06/25 16:15 Range/Units White Blood Count 6.2 4.4-10.8 10^3/uL Red Blood Count 4.02 L 4.5-5.90 10^6/uL Hemoglobin 12.1 L 13.5-17.5 g/dL Hematocrit 36.8 L 41.0-53.0 % Mean Corpuscular Volume 91.5 80.0-100.0 fL Mean Corpuscular Hemoglobin 30.0 28.0-32.0 pg Mean Corpuscular Hemoglobin Concent 32.8 32.0-36.0 g/dL Red Cell Distribution Width 13.2 11.8-14.3 % Platelet Count 363 140-450 10^3/uL Mean Platelet Volume 8.2 6.9-10.8 fL Neutrophils (%) (Auto) 72.7 37.0-80.0 % Lymphocytes (%) (Auto) 17.9 10.0-50.0 % Monocytes (%) (Auto) 6.4 0.0-12.0 % Eosinophils (%) (Auto) 2.3 0.0-7.0 % Basophils (%) (Auto) 0.7 0.0-2.0 % Neutrophils # (Auto) 4.5 1.6-8.6 10 ^3/uL Lymphocytes # (Auto) 1.1 0.4-5.4 10 ^3/uL Monocytes # (Auto) 0.4 0-1.3 10 ^3/uL Eosinophils # (Auto) 0.1 0-0.8 10 ^3/uL Basophils # (Auto) 0 0-0.2 10 ^3/uL Nucleated Red Blood Cells 0.1 % Sodium Level 136 # 136-145 mmol/L Potassium Level 4.9 3.5-5.1 mmol/L Chloride Level 103 98-107 mmol/L Carbon Dioxide Level 20 20-31 mmol/L Anion Gap 13 5-15 Blood Urea Nitrogen 30 #H 9-23 mg/dL Creatinine 1.78 H 0.700-1.30 mg/dL Glomerular Filtration Rate Calc 43 >90 mL/min BUN/Creatinine Ratio 16.9 10.0-20.0 Serum Glucose 369 #H 74-106 mg/dL Calcium Level 8.0 L 8.7-10.4 mg/dL Total Bilirubin 0.2 0.2-1.0 mg/dL Aspartate Amino Transferase (AST) 29 13-40 U/L Alanine Aminotransferase (ALT) 24 7-40 U/L Alkaline Phosphatase 108 46-116 U/L Troponin I High Sensitivity < 3 L </=54 ng/L Total Protein 5.7 5.7-8.2 g/dL Albumin 3.4 3.2-4.8 g/dL Lipase 66 H 12-53 U/L Beta-Hydroxybutyric Acid 0.188 < 0.4 mmol/L SEPSIS Sepsis Screen Date sepsis recognized/suspect: Aug 06, 2025 Time Sepsis recognized/suspect: 1744 Recent Procedure: No On Antibiotic Therapy: No Respiratory Rate >20: No Heart Rate >90: No Temp<36 C (96.8 F) or >38.3 C: No SBP <90 or MAP <65 mmHG: Yes New Acute Mental Status Change: No Is the patient on CPAP, BIPAP,: No Physician Orders Admit (08/06/25 19:50) Ceftriaxone 1gm/50ml (Rocephin) (08/07/25 09:00) Sodium Chloride 0.9% (08/06/25 20:45) Consistent Carb(Ccho)Diabetes (08/07/25 Breakfast) Basic Metabolic Panel (08/07/25 04:00) Glucose Blood (Accu-Chek Comfort Curve T (08/07/25 00:00) Insulin R (Human) (Insulin R) (08/07/25 00:00) Dextrose 50% Syringe (08/06/25 20:45) Hydrocodone-Acet 5/325mg Tab ([place] 5/32 (08/06/25 20:45) Ondansetron Hcl (Zofran) (08/06/25 20:45) Complete Blood Count (08/07/25 04:00) Condition: Fair (08/06/25 20:36) Acetaminophen Tablet (Tylenol Tablet) (08/06/25 20:45) Bedrest With Bathroom Privileg (08/06/25 20:36) Vital Signs Date Time Temp Pulse Resp B/P (MAP) Pulse Ox O2 Delivery O2 Flow Rate FiO2 08/06/25 23:32 61 10 101/61 (74) 99 08/06/25 20:00 63 08/06/25 19:20 72 08/06/25 18:15 97.7 65 12 91/55 (67) 100 97.7 08/06/25 18:05 67 17 94/49 (64) 99 08/06/25 17:45 65 18 88/52 (64) 99 08/06/25 17:45 65 18 99 Room Air* 0 21 Laboratory Tests Test 08/06/25 16:15 08/06/25 18:55 Lactic Acid Level 3.2 mmol/L (0.4-2.0) *H 2.7 mmol/L (0.4-2.0) *H White Blood Count 6.2 10^3/uL (4.4-10.8) Medications Medications Dose Ordered Sig/Niesha Route Start Time Stop Time Status Last Admin Dose Admin Ceftriaxone Sodium 50 ml @ 100 mls/hr ONCE ONCE IV 08/06/25 18:30 08/06/25 18:59 DC 08/06/25 19:15 100 MLS/HR Diagnostic Test (Pha) 1 strip IQ4HR 08/07/25 00:00 08/06/25 23:05 1 STRIP Insulin Human Regular IQ4HR SC 08/07/25 00:00 08/06/25 23:08 2 UNITS Sodium Chloride 1,000 ml @ 125 mls/hr Q8H ONCE IV 08/06/25 20:45 08/07/25 04:44 08/06/25 21:15 125 MLS/HR Sodium Chloride 1,000 ml @ 1,000 mls/hr Q1H ONCE IV 08/06/25 16:00 08/06/25 16:59 DC 08/06/25 17:06 1,000 MLS/HR Sodium Chloride 1,000 ml @ 1,000 mls/hr Q1H ONCE IV 08/06/25 18:30 08/06/25 19:29 DC 08/06/25 18:54 1,000 MLS/HR Sodium Chloride 1,000 ml @ 1,000 mls/hr Q1H ONCE IV 08/06/25 18:30 08/06/25 19:29 DC 08/06/25 18:54 1,000 MLS/HR Assessment/Plan Assessment/Plan Assessment Uncontrolled diabetes mellitus Acute kidney injury Urinary tract infection Plan Admit the patient to [facility] surge to the hospitalist Q.4 hour Accu-Cheks Maintenance IV fluids Resume home medications Continue treatment per orders. Plan discussed with: Patient My Orders Orders - SVETA SPARKS Procedure Category Date Status Time Admit ADMIT 08/06/25 Transmitted 19:50 Ceftriaxone 1gm/50ml PHA 08/07/25 In Process (Rocephin) 09:00 Sodium Chloride 0.9% PHA 08/06/25 In Process 20:45 Consistent DIET 08/07/25 Transmitted Carb(Ccho)Diabetes Breakfast Basic Metabolic Panel LAB 08/07/25 Logged 04:00 Glucose Blood PHA 08/07/25 In Process (Accu-Chek Comfort 00:00 Insulin R (Human) PHA 08/07/25 In Process (Insulin R) 00:00 Dextrose 50% Syringe PHA 08/06/25 In Process 20:45 Hydrocodone-Acet PHA 08/06/25 In Process 5/325mg Tab ([place] 20:45 Ondansetron Hcl PHA 08/06/25 In Process (Zofran) 20:45 Complete Blood Count LAB 08/07/25 Logged 04:00 Condition: Fair ARTUR 08/06/25 In Process 20:36 Acetaminophen Tablet PHA 08/06/25 In Process (Tylenol Tablet) 20:45 Bedrest With Bathroom ARTUR 08/06/25 In Process Privileg 20:36 Date of Service: Aug 06, 2025 Billing Provider: SVETA SPARKS Common Visit Codes: [id number] INP/OBS CARE (HIGH) SVETA SPARKS Aug 07, 2025 01:05
--- NOTE | 2025-08-07 08:03 | ECG ---
[facility] Test Date: 2025-08-06 Test Time: 15:06:07 Pat Name: LISA BENITES Department: ED Room: 0272 A Gender: M Promotion Producer: KAIA : [id number] Requested By: AGUSTIN RUIZ Order Number: [id number] Reading MD: Roshan Velasco Measurements Intervals Gap Rate: 72 P: 15 MO: 141 QRS: 14 QRSD: 86 T: 12 QT: 402 QTc: 440 Interpretive Statements Sinus rhythm Abnormal R-wave progression, early transition Electronically Signed On 08-11-2025 14:20:10 PDT by Roshan Velasco Please click the below link to view image of tracing.
[2025-08-07 08:04] LABS: Hematocrit 39.2 % (41.0-53.0); Hemoglobin 13.2 g/dL (13.5-17.5); Mean Corpuscular Hemoglobin 30.0 pg (28.0-32.0); Mean Corpuscular Volume 89.3 fL (80.0-100.0); Nucleated Red Blood Cells % 0.2 %
[2025-08-07 08:08] LABS: Anion Gap 13 (5-15); Potassium 3.7 mmol/L (3.5-5.1); Sodium 144 mmol/L (136-145)
[2025-08-07 08:14] LABS: BUN/Creatinine Ratio 13.3 (10.0-20.0); Blood Urea Nitrogen 16 mg/dL (9-23); Glucose 89 mg/dL (74-106)
[2025-08-07 08:40] LABS: Calcium 8.3 mg/dL (8.7-10.4); Carbon Dioxide 19 mmol/L (20-31); Chloride 112 mmol/L (98-107)
[2025-08-07] MEDS ORDERED: DEXTROSE (50%) 50ML SYRG IV PRN (13:15)
--- NOTE | 2025-08-07 13:23 | DVHPN2 ---
Changes from previous H/P or p: No Changes Objective Vitals Vital Signs Date Time Temp Pulse Resp B/P (MAP) Pulse Ox O2 Delivery O2 Flow Rate FiO2 08/07/25 08:31 98.4 76 16 108/62 (77) 92 98.4 08/07/25 01:00 Room Air* 0 21 Intake/Output Intake and Output 08/07/25 07:00 Intake Total 0 ml Output Total 1450 ml Balance -1450 ml Intake Oral 0 ml Output Urine Total 1450 ml # Voids 2 Medications Current Medications Medications Dose Ordered Sig/Niesha Route Start Time Stop Time Status Last Admin Dose Admin Ceftriaxone Sodium 50 ml @ 100 mls/hr DAILY@09 IV 08/07/25 09:00 08/07/25 11:18 100 MLS/HR Diagnostic Test (Pha) 1 strip IQ4HR 08/07/25 00:00 08/07/25 12:33 1 STRIP Insulin Human Regular IQ4HR SC 08/07/25 00:00 08/07/25 12:48 6 UNITS Dextrose 50 ml UD PRN IV 08/06/25 20:45 Acetaminophen/ Hydrocodone Bitart 1 tab Q4HP PRN PO 08/06/25 20:45 Ondansetron HCl 4 mg Q4HP PRN IV 08/06/25 20:45 Acetaminophen 650 mg Q6HP PRN PO 08/06/25 20:45 Laboratory Results Laboratory Tests 08/07/25 06:19 Chemistry Test 08/06/25 16:15 08/07/25 06:19 Albumin 3.4 g/dL (3.2-4.8) Calcium Level 8.0 mg/dL (8.7-10.4) L 8.3 mg/dL (8.7-10.4) L Total Protein 5.7 g/dL (5.7-8.2) Lipid panel Test 08/06/25 16:15 Lipase 66 U/L (12-53) H LFT Test 08/06/25 16:15 Alanine Aminotransferase (ALT) 24 U/L (7-40) Alkaline Phosphatase 108 U/L (46-116) Aspartate Amino Transferase (AST) 29 U/L (13-40) Total Bilirubin 0.2 mg/dL (0.2-1.0) Urinalysis Test 08/06/25 18:34 Urine Color Colorless (Yellow) Urine Clarity Clear (Clear) Urine pH 5.5 (5.0-9.0) Urine Specific [place] 1.004 (1.001-1.035) Urine Protein Trace (Negative) H Urine Ketones Negative (Negative) Urine Blood Negative /uL (Negative) Urine Nitrite Negative (Negative) Urine Bilirubin Negative (Negative) Urine Urobilinogen Normal mg/dL (Negative) Urine Leukocyte Esterase 2+ /uL (Negative) Urine RBC <1 /hpf (0 - 3) Urine Microscopic WBC 19 /HPF (0-3) H Urine Squamous Epithelial Cells Few /hpf (<5) Urine Bacteria None seen /hpf (None Seen) Urine Glucose 4+ mg/dL (Normal) H Blood Gas Results Test 08/06/25 16:36 Arterial Blood pH 7.328 (7.350-7.450) FiO2 % 21.0 Labs and/or images reviewed: Labs reviewed by me, Image(s) reviewed by me Assessment/Plan Assessment/Plan Acute diabetic ketoacidosis Acute hyperglycemia with a blood sugar 586, insulin aggressive sliding scale, Lantus Hyponatremia, hyperglycemia mediated, Anemia, unspecified Acute kidney injury superimposed on chronic kidney disease Noncompliance, patient was discharged two days ago, not taking insulin properly and ended up back in the hospital Acute urinary tract infection: Rocephin: Blood cultures urine Per patient he was with [facility] Plan discussed with: Patient My Orders Orders - AYSE HUMPHREY MD Procedure Category Date Status Time Urine Bacterial MIRIAN 08/07/25 Logged Culture 13:12 Glucose Blood PHA 08/07/25 Verified (Accu-Chek Comfort 18:00 Agressive Insulin Ss PHA 08/07/25 Verified 18:00 Dextrose 50% Syringe PHA 08/07/25 Verified 13:15 Date of Service: Aug 07, 2025 Billing Provider: AYSE HUMPHREY MD Common Visit Codes: [id number] INP/OBS CARE(HIGH) AYSE HUMPHREY MD Aug 07, 2025 13:23
[2025-08-07] MEDS: ACCU-CHEK COMFORT CURVE STRIP VI SCH (18:00)
[2025-08-07] MEDS: InsuLIN REG 1unit/0.01ml Soln (100units/ml) SC SCH (18:00)
[2025-08-07] MEDS: INSULIN LANTUS (GLARGINE) 1 /0.01ml (100units/ml) SC SCH (21:58)
[2025-08-07] MEDS: HYDROcodone-ACET 5/325MG TAB PO PRN (22:00)
[2025-08-08 01:00] VITALS: BP 119/67; PULSE 95; RESP 17; TEMP 98.6; O2SAT 97
[2025-08-08 05:00] VITALS: BP 121/80; PULSE 90; RESP 17; TEMP 98.3; O2SAT 100
[2025-08-08 09:00] VITALS: BP 131/73; PULSE 105; RESP 18; TEMP 98; O2SAT 100
--- NOTE | 2025-08-08 10:44 | DVHPN2 ---
Reviewed: Care Plan, H&P, Labs, Medications, Previous Orders, Radiology Changes from previous H/P or p: No Changes Objective Vitals Vital Signs Date Time Temp Pulse Resp B/P (MAP) Pulse Ox O2 Delivery O2 Flow Rate FiO2 08/08/25 09:00 98.0 105 18 131/73 (92) 100 98.0 08/07/25 20:00 Room Air* 0 21 Intake/Output Intake and Output 08/08/25 07:00 Intake Total 930 ml Balance 930 ml Intake Oral 930 ml # Voids 7 Medications Current Medications Medications Dose Ordered Sig/Niesha Route Start Time Stop Time Status Last Admin Dose Admin Ceftriaxone Sodium 50 ml @ 100 mls/hr DAILY@09 IV 08/07/25 09:00 08/08/25 09:35 100 MLS/HR Dextrose 50 ml UD PRN IV 08/06/25 20:45 Cancel Acetaminophen/ Hydrocodone Bitart 1 tab Q4HP PRN PO 08/06/25 20:45 08/07/25 22:00 1 TAB Ondansetron HCl 4 mg Q4HP PRN IV 08/06/25 20:45 Acetaminophen 650 mg Q6HP PRN PO 08/06/25 20:45 Diagnostic Test (Pha) 1 strip Q6HR 08/07/25 18:00 08/08/25 05:02 1 STRIP Insulin Human Regular Q6HR SC 08/07/25 18:00 08/07/25 21:58 2 UNITS Dextrose 50 ml UD PRN IV 08/07/25 13:15 Insulin Glargine 20 units HS SC 08/07/25 22:00 08/07/25 21:58 20 UNITS Laboratory Results Laboratory Tests 08/07/25 06:19 Urinalysis Test 08/06/25 18:34 Urine Color Colorless (Yellow) Urine Clarity Clear (Clear) Urine pH 5.5 (5.0-9.0) Urine Specific [place] 1.004 (1.001-1.035) Urine Protein Trace (Negative) H Urine Ketones Negative (Negative) Urine Blood Negative /uL (Negative) Urine Nitrite Negative (Negative) Urine Bilirubin Negative (Negative) Urine Urobilinogen Normal mg/dL (Negative) Urine Leukocyte Esterase 2+ /uL (Negative) Urine RBC <1 /hpf (0 - 3) Urine Microscopic WBC 19 /HPF (0-3) H Urine Squamous Epithelial Cells Few /hpf (<5) Urine Bacteria None seen /hpf (None Seen) Urine Glucose 4+ mg/dL (Normal) H Microbiology Microbiology Date/Time Source Procedure Growth Status 08/06/25 16:33 Blood Blood Culture - Preliminary NO GROWTH AFTER 24 HOURS OF INCUBATION. Resulted Labs and/or images reviewed: Labs reviewed by me, Image(s) reviewed by me Assessment/Plan Assessment/Plan Acute diabetic ketoacidosis Acute hyperglycemia with a blood sugar 586, insulin aggressive sliding scale, Lantus Acute hyponatremia Anemia, unspecified Acute kidney injury superimposed on chronic kidney disease Noncompliance, patient was discharged two days ago, not taking insulin properly and ended up back in the hospital Acute urinary tract infection: Rocephin: Blood cultures negative, urine cultures pending, Per patient he was with [facility] Plan discussed with: Patient My Orders Orders - AYSE HUMPHREY MD Procedure Category Date Status Time Urine Bacterial MIRIAN 08/07/25 In Process Culture 13:12 Glucose Blood PHA 08/07/25 In Process (Accu-Chek Comfort 18:00 Insulin R (Human) PHA 08/07/25 In Process (Insulin R) 18:00 Dextrose 50% Syringe PHA 08/07/25 In Process 13:15 Insulin Lantus PHA 08/07/25 In Process (Glargine) (Lantus) 22:00 * Clerical Supervisor CONS 08/07/25 Transmitted Consult * Wound Consult CONS 08/07/25 Transmitted Mrsa Screen MIRIAN 08/08/25 Uncollected 07:45 Date of Service: Aug 08, 2025 Billing Provider: AYSE HUMPHREY MD Common Visit Codes: [id number] INP/OBS CARE(HIGH) AYSE HUMPHREY MD Aug 08, 2025 10:44
[2025-08-08] MEDS ORDERED: ASPI81CH59 PO (12:03)
[2025-08-08] MEDS ORDERED: HYDR-4798 PO (12:05)
[2025-08-08] MEDS: ONDANSETRON HCL 4 MG/2 ML VIAL IV PRN (12:52)
[2025-08-08 13:00] VITALS: BP_SYST 119; BP_SYST 132; BP_DIAS 78; BP_DIAS 90; PULSE 117; PULSE 80; RESP 18; RESP 20; TEMP 99; O2SAT 93; O2SAT 99
[2025-08-08 17:00] VITALS: BP 127/72; PULSE 116; RESP 20; TEMP 98.4; O2SAT 100
[2025-08-08 21:00] VITALS: BP 150/88; PULSE 110; RESP 19; TEMP 98; O2SAT 99
[2025-08-09] VITALS (8 sets, daily range): BP systolic 108–143; BP diastolic 63–84; PULSE 94–108; RESP 16–20; TEMP 96.8–99.1; O2SAT 96–100
[2025-08-09] MEDS: MELATONIN 5 MG TAB PO ONE (01:49)
--- NOTE | 2025-08-09 10:09 | DVHPN2 ---
Reviewed: Care Plan, H&P, Labs, Medications, Previous Orders, Radiology Changes from previous H/P or p: No Changes Objective Vitals Vital Signs Date Time Temp Pulse Resp B/P (MAP) Pulse Ox O2 Delivery O2 Flow Rate FiO2 08/09/25 08:36 99.1 94 20 143/84 (103) 97 99.1 08/08/25 20:00 Room Air* 0 N/A Nasal Cannula* Intake/Output Intake and Output 08/09/25 07:00 Intake Total 692 ml Output Total 500 ml Balance 192 ml Intake Oral 692 ml Output Urine Total 500 ml Medications Current Medications Medications Dose Ordered Sig/Niesha Route Start Time Stop Time Status Last Admin Dose Admin Ceftriaxone Sodium 50 ml @ 100 mls/hr DAILY@09 IV 08/07/25 09:00 08/09/25 09:07 100 MLS/HR Dextrose 50 ml UD PRN IV 08/06/25 20:45 Cancel Acetaminophen/ Hydrocodone Bitart 1 tab Q4HP PRN PO 08/06/25 20:45 08/08/25 19:05 1 TAB Ondansetron HCl 4 mg Q4HP PRN IV 08/06/25 20:45 08/09/25 09:15 4 MG Acetaminophen 650 mg Q6HP PRN PO 08/06/25 20:45 Diagnostic Test (Pha) 1 strip Q6HR 08/07/25 18:00 08/08/25 18:29 1 STRIP Insulin Human Regular Q6HR SC 08/07/25 18:00 08/08/25 18:33 4 UNITS Dextrose 50 ml UD PRN IV 08/07/25 13:15 Insulin Glargine 20 units HS SC 08/07/25 22:00 08/07/25 21:58 20 UNITS Laboratory Results Laboratory Tests 08/07/25 06:19 Urinalysis Test 08/06/25 18:34 Urine Color Colorless (Yellow) Urine Clarity Clear (Clear) Urine pH 5.5 (5.0-9.0) Urine Specific [place] 1.004 (1.001-1.035) Urine Protein Trace (Negative) H Urine Ketones Negative (Negative) Urine Blood Negative /uL (Negative) Urine Nitrite Negative (Negative) Urine Bilirubin Negative (Negative) Urine Urobilinogen Normal mg/dL (Negative) Urine Leukocyte Esterase 2+ /uL (Negative) Urine RBC <1 /hpf (0 - 3) Urine Microscopic WBC 19 /HPF (0-3) H Urine Squamous Epithelial Cells Few /hpf (<5) Urine Bacteria None seen /hpf (None Seen) Urine Glucose 4+ mg/dL (Normal) H Microbiology Microbiology Date/Time Source Procedure Growth Status 08/06/25 18:34 Voided Urine Urine Culture - Preliminary Resulted 08/06/25 16:33 Blood Blood Culture - Preliminary NO GROWTH AFTER 48 HOURS OF INCUBATION. Resulted Labs and/or images reviewed: Labs reviewed by me, Image(s) reviewed by me Assessment/Plan Assessment/Plan Acute diabetic ketoacidosis Acute hyperglycemia with a blood sugar 586, insulin aggressive sliding scale, Lantus Acute hyponatremia Anemia, unspecified Acute kidney injury superimposed on chronic kidney disease Persistent nausea and vomiting GI consult Noncompliance, patient was discharged two days ago, not taking insulin properly and ended up back in the hospital Acute urinary tract infection: Rocephin: Blood cultures negative, urine cultures pending, Per patient he was with [facility], does not want to go back on hospice Possible alf facility placement Plan discussed with: Patient My Orders Orders - AYSE HUMPHREY MD Procedure Category Date Status Time Mrsa Screen MIRIAN 08/08/25 In Process 07:45 Podiatry Consult CONS 08/08/25 Transmitted 14:29 Insert Midline ORDERS 08/08/25 Transmitted 15:27 Cleanse Wound With ARTUR 08/08/25 In Process Wound Clean 11:17 * Dietary Consult CONS 08/08/25 Transmitted 16:54 Apply Z-Guard ARTUR 08/08/25 In Process 11:17 Wound Culture W/ Gs MIRIAN 08/08/25 In Process 17:06 Date of Service: Aug 09, 2025 Billing Provider: AYSE HUMPHREY MD Common Visit Codes: [id number] INP/OBS CARE(HIGH) AYSE HUMPHREY MD Aug 09, 2025 10:09
--- NOTE | 2025-08-09 16:30 | DVHINCON2 ---
Date of service: Aug 09, 2025 Referring Physician Colten Membreno Reason for Consultation Persistent nausea and vomiting History of Present Illness The patient is a 59-year-old male with a past medical history significant for diabetes, hypertension, hyperlipidemia, schizophrenia, who was on hospice who no longer wishes to be on hospice, history of CVA, admitted with DKA and persistent nausea and vomiting. Patient has abdominal pain. GI consultation was obtained for his persistent nausea and vomiting. Patient is not the best historian. He denies any dysphagia or odynophagia. Patient was noted to have extremely high blood sugar greater than 500. He states that he has had multiple episodes in the past. Patient is with a UTI and is on antibiotics. He is also taking Zofran for his nausea. Past Medical History As above Past Surgical History Right AKA Family History: Patient reports no known family medical history. Family History Noncontributory Social History No current tobacco, alcohol or recreational drug use Allergies: Coded Allergies: Egg Solids, Whole (Verified Allergy, Intermediate, VOMITING, 08/08/25) Home Meds Active Scripts Insulin Aspart (Novolog Flexpen Relion) 100 Unit/Ml Inj, 1-10 UNIT SC TIDWM PRN, #1 INJ 1 Refill [id number]; 180=4u; 240=6u; 300=8u; 350=10u; >400-12u+ED Prov:SUKI ARAUJO MD 08/05/25 Insulin Glargine (Lantus Solostar) 100 Unit/Ml Inj, 15 UNIT SC BID for 30 Days, #3 INJ 1 Refill Prov:SUKI ARAUJO MD 08/05/25 Reported Medications Hydrocodone-Acetaminophen (Hydrocodone Bitartrate/AC 10-325 mg) 1 Tab Tab, 1 TAB PO Q8HPRN PRN for PAIN SCALE 7 THRU 10, TAB 08/08/25 Aspirin (Aspirin Low Dose) 81 Mg Chw, 1 TAB PO DAILY, #30 TAB 3 Refills 08/08/25 Baclofen (Baclofen) 20 Mg Tab, 1 TAB PO BIDP PRN for FOR MUSCLE SPASM for 50 Days, #100 04/02/25 Gabapentin (Gabapentin) 400 Mg Cap, 1 CAP PO TID for 90 Days, #270 04/02/25 Hydroxyzine HCl (Hydroxyzine Hydrochloride) 50 Mg Tab, 1 TAB PO TIDP PRN for ANXIETY for 30 Days, #90 04/02/25 Metoprolol Tartrate (LOPRESSOR TABLET) 50 Mg Tb, 1 TAB PO BID for 30 Days, #60 04/02/25 Amlodipine Besylate (Amlodipine Besylate) 10 Mg Tab, 1 TAB PO DAILY for 30 Days, #30 04/02/25 Olanzapine (OLANZAPINE) 2.5 Mg Tab, 1 TAB PO QPM for 30 Days, #30 04/02/25 Fluoxetine HCl (Fluoxetine HCl) 20 Mg Cap, 2 CAP PO QAM for 30 Days, #60 04/02/25 Apixaban Base (ELIQUIS) 5 Mg Tab, 1 TAB PO BID for 90 Days, #180 03/15/25 Ertugliflozin l-Pyroglutamic A (Steglatro) 5 Mg Tab, 1 TAB PO DAILY IN AM for 90 Days, #90 03/15/25 Quetiapine Fumerate (QUETIAPINE FUMARATE) 100 Mg Tab, 1 TAB PO HS for 30 Days, #30 03/15/25 Folic Acid (Folic Acid) 1 Mg Tab, 1 TAB PO DAILY for 90 Days, #90 03/15/25 Temazepam (Temazepam) 30 Mg Cap, 1 CAP PO HS for INSOMNIA for 30 Days, #30 03/15/25 Atorvastatin Calcium (ATORVASTATIN CALCIUM) 20 Mg Tab, 1.5 TAB PO DAILY for 90 Days, #135 30 MG PO IN THE MORNING 03/15/25 Losartan Potassium (Losartan Potassium) 50 Mg Tab, 1 TAB PO DAILY@BREAKFAST for 90 Days, #90 HOLD FOR BP < 110 OR HR <60 03/15/25 Discontinued Reported Medications Metformin Hydrochloride (Metformin Hcl) 850 Mg Tab, 850 MG PO BID for 90 Days, #180 03/15/25 Insulin Lispro (Insulin Lispro) 100 Unit/Ml Inj, 0-6 UNIT SC QID for 30 Days, #10 INJECT 0-6 UNITS UNDER THE SKIN FOUR TIMES DAILY BEFORE MEALS AND AT BEDTIME. 04/02/25 Insulin Glargine (Lantus) 100 Unit/Ml Inj, 40 UNIT SC HS for 75 Days, #30 03/15/25 Review of Systems Hyperlipidemia and diabetes Hypertension CVA History of AKA History of DKA History of schizophrenia Vital Signs Vital Signs Date Time Temp Pulse Resp B/P (MAP) Pulse Ox O2 Delivery O2 Flow Rate FiO2 08/09/25 13:00 98.4 96 18 108/63 (78) 97 98.4 08/09/25 08:00 Room Air* 0 21 Labs/Diagnostic Data Labs Test 08/09/25 12:18 08/07/25 06:19 08/06/25 18:55 08/06/25 18:34 Range/Units POC Glucose 205 H 70-106 mg/dl White Blood Count 5.7 4.4-10.8 10^3/uL Red Blood Count 4.39 L 4.5-5.90 10^6/uL Hemoglobin 13.2 L 13.5-17.5 g/dL Hematocrit 39.2 L 41.0-53.0 % Mean Corpuscular Volume 89.3 80.0-100.0 fL Mean Corpuscular Hemoglobin 30.0 28.0-32.0 pg Mean Corpuscular Hemoglobin Concent 33.6 32.0-36.0 g/dL Red Cell Distribution Width 13.2 11.8-14.3 % Platelet Count 422 140-450 10^3/uL Mean Platelet Volume 8.2 6.9-10.8 fL Neutrophils (%) (Auto) 60.7 37.0-80.0 % Lymphocytes (%) (Auto) 25.3 10.0-50.0 % Monocytes (%) (Auto) 8.4 0.0-12.0 % Eosinophils (%) (Auto) 4.7 0.0-7.0 % Basophils (%) (Auto) 0.9 0.0-2.0 % Neutrophils # (Auto) 3.4 1.6-8.6 10 ^3/uL Lymphocytes # (Auto) 1.4 0.4-5.4 10 ^3/uL Monocytes # (Auto) 0.5 0-1.3 10 ^3/uL Eosinophils # (Auto) 0.3 0-0.8 10 ^3/uL Basophils # (Auto) 0 0-0.2 10 ^3/uL Nucleated Red Blood Cells 0.2 % Sodium Level 144 # 136-145 mmol/L Potassium Level 3.7 3.5-5.1 mmol/L Chloride Level 112 H 98-107 mmol/L Carbon Dioxide Level 19 L 20-31 mmol/L Anion Gap 13 5-15 Blood Urea Nitrogen 16 # 9-23 mg/dL Creatinine 1.20 0.700-1.30 mg/dL Glomerular Filtration Rate Calc 69 >90 mL/min BUN/Creatinine Ratio 13.3 10.0-20.0 Serum Glucose 89 # 74-106 mg/dL Calcium Level 8.3 L 8.7-10.4 mg/dL Lactic Acid Level 2.7 *H 0.4-2.0 mmol/L Urine Color Colorless Yellow Urine Clarity Clear Clear Urine pH 5.5 5.0-9.0 Urine Specific [place] 1.004 1.001-1.035 Urine Protein Trace H Negative Urine Ketones Negative Negative Urine Blood Negative Negative /uL Urine Nitrite Negative Negative Urine Bilirubin Negative Negative Urine Urobilinogen Normal Negative mg/dL Urine Leukocyte Esterase 2+ Negative /uL Urine RBC <1 0 - 3 /hpf Urine Microscopic WBC 19 H 0-3 /HPF Urine Squamous Epithelial Cells Few <5 /hpf Urine Bacteria None seen None Seen /hpf Urine Glucose 4+ H Normal mg/dL Test 08/06/25 16:36 08/06/25 16:15 Range/Units Blood Gas Specimen Type Arterial Blood Gas Sample Site Right radial Blood Gas Patient Temperature 37.0 Arterial Blood Date Drawn [id number] Arterial Blood pH 7.328 L 7.350-7.450 Arterial Blood Partial Pressure CO2 33.6 L 35.0-48.0 mmHg Arterial Blood Partial Pressure O2 72.0 L 83.0-108.0 mmHg Arterial Blood HCO3 17.2 L 21.0-28.0 mmol/L Arterial Blood Oxygen Saturation 92.4 L 94.0-98.0 % Arterial Blood Base Excess -7.8 L -2.0-3.0 mmol/L Arterial Blood Oxyhemoglobin 91.7 L 94.0-98.0 % Arterial Blood Carboxyhemoglobin 0.3 L 0.5-1.5 % Arterial Blood Methemoglobin 0.5 0.0-1.5 % Carmelo Test Yes Blood Gas Total Hemoglobin 12.40 L 13.5-17.5 g/dL Blood Gas Modality Room air FiO2 % 21.0 Total Bilirubin 0.2 0.2-1.0 mg/dL Aspartate Amino Transferase (AST) 29 13-40 U/L Alanine Aminotransferase (ALT) 24 7-40 U/L Alkaline Phosphatase 108 46-116 U/L Troponin I High Sensitivity < 3 L </=54 ng/L Total Protein 5.7 5.7-8.2 g/dL Albumin 3.4 3.2-4.8 g/dL Lipase 66 H 12-53 U/L Beta-Hydroxybutyric Acid 0.188 < 0.4 mmol/L Microbiology Date/Time Source Procedure Growth Status 08/08/25 19:21 Leg Left Gram Stain - Final Resulted 08/08/25 19:21 Leg Left Wound Culture - Preliminary Resulted 08/06/25 18:34 Voided Urine Urine Culture - Preliminary Resulted 08/06/25 16:33 Blood Blood Culture - Preliminary NO GROWTH AFTER 48 HOURS OF INCUBATION. Resulted Assessment 1. Diabetes with DKA 2. Abdominal pain 3. Nausea and vomiting Blood sugars under better control. The CT scan was negative. Problems(with codes): (1) DKA (diabetic ketoacidosis) (2) Anemia, unspecified (3) Diabetes mellitus with ketoacidosis (4) Hyperglycemia due to diabetes mellitus (5) Acute kidney injury superimposed on chronic kidney disease Plan/Recommendation 1. Antiemetics 2. Continue with good diabetes control 3. Anti-reflux precautions 4. Diet as tolerated 5. Consider candidal esophagitis given his DKA and consider nystatin swish and swallow if the patient's symptoms persist and worsen and subsequently EGD format 6. We will follow Plan discussed with: Patient NICK SUAREZ MD Aug 09, 2025 16:30
[2025-08-10] VITALS (8 sets, daily range): BP systolic 112–146; BP diastolic 64–85; PULSE 95–106; RESP 16–20; TEMP 97.6–98.7; O2SAT 96–99
[2025-08-10 06:17] LABS: Hematocrit 36.9 % (41.0-53.0); Hemoglobin 12.4 g/dL (13.5-17.5); Mean Corpuscular Hemoglobin 30.0 pg (28.0-32.0); Mean Corpuscular Volume 89.5 fL (80.0-100.0); Nucleated Red Blood Cells % 0.3 %
[2025-08-10 06:50] LABS: Alanine Aminotransferase 16 U/L (7-40); Alkaline Phosphatase 98 U/L (46-116); Anion Gap 15 (5-15); BUN/Creatinine Ratio 11.5 (10.0-20.0); Blood Urea Nitrogen 14 mg/dL (9-23); Glucose 89 mg/dL (74-106); Potassium 3.9 mmol/L (3.5-5.1); Sodium 141 mmol/L (136-145); Total Protein 6.6 g/dL (5.7-8.2)
[2025-08-10 06:52] LABS: Albumin 3.8 g/dL (3.2-4.8)
[2025-08-10 07:00] LABS: Bilirubin, Total 0.2 mg/dL (0.2-1.0); Calcium 8.6 mg/dL (8.7-10.4); Carbon Dioxide 18 mmol/L (20-31); Chloride 108 mmol/L (98-107)
--- NOTE | 2025-08-10 11:45 | DVHPN2 ---
Reviewed: Care Plan, H&P, Labs, Medications, Previous Orders, Radiology Changes from previous H/P or p: No Changes Objective Vitals Vital Signs Date Time Temp Pulse Resp B/P (MAP) Pulse Ox O2 Delivery O2 Flow Rate FiO2 08/10/25 08:41 98.0 106 18 119/66 (83) 99 98.0 08/09/25 20:00 Room Air* 0 21 Intake/Output Intake and Output 08/10/25 07:00 Intake Total 1248 ml Output Total 1901 ml Balance -653 ml Intake Oral 1198 ml IV Total 50 ml Output Urine Total 1900 ml Stool Total 1 ml Medications Current Medications Medications Dose Ordered Sig/Niesha Route Start Time Stop Time Status Last Admin Dose Admin Ceftriaxone Sodium 50 ml @ 100 mls/hr DAILY@09 IV 08/07/25 09:00 08/10/25 08:48 100 MLS/HR Dextrose 50 ml UD PRN IV 08/06/25 20:45 Cancel Acetaminophen/ Hydrocodone Bitart 1 tab Q4HP PRN PO 08/06/25 20:45 08/09/25 22:58 1 TAB Ondansetron HCl 4 mg Q4HP PRN IV 08/06/25 20:45 08/09/25 09:15 4 MG Acetaminophen 650 mg Q6HP PRN PO 08/06/25 20:45 Diagnostic Test (Pha) 1 strip Q6HR 08/07/25 18:00 08/09/25 23:05 1 STRIP Insulin Human Regular Q6HR SC 08/07/25 18:00 08/09/25 23:04 4 UNITS Dextrose 50 ml UD PRN IV 08/07/25 13:15 Insulin Glargine 20 units HS SC 08/07/25 22:00 08/09/25 23:04 20 UNITS Laboratory Results Laboratory Tests 08/10/25 05:10 Chemistry Test 08/10/25 05:10 Albumin 3.8 g/dL (3.2-4.8) Calcium Level 8.6 mg/dL (8.7-10.4) L Total Protein 6.6 g/dL (5.7-8.2) LFT Test 08/10/25 05:10 Alanine Aminotransferase (ALT) 16 U/L (7-40) Alkaline Phosphatase 98 U/L (46-116) Aspartate Amino Transferase (AST) 19 U/L (13-40) Total Bilirubin 0.2 mg/dL (0.2-1.0) Urinalysis Test 08/06/25 18:34 Urine Color Colorless (Yellow) Urine Clarity Clear (Clear) Urine pH 5.5 (5.0-9.0) Urine Specific [place] 1.004 (1.001-1.035) Urine Protein Trace (Negative) H Urine Ketones Negative (Negative) Urine Blood Negative /uL (Negative) Urine Nitrite Negative (Negative) Urine Bilirubin Negative (Negative) Urine Urobilinogen Normal mg/dL (Negative) Urine Leukocyte Esterase 2+ /uL (Negative) Urine RBC <1 /hpf (0 - 3) Urine Microscopic WBC 19 /HPF (0-3) H Urine Squamous Epithelial Cells Few /hpf (<5) Urine Bacteria None seen /hpf (None Seen) Urine Glucose 4+ mg/dL (Normal) H Microbiology Microbiology Date/Time Source Procedure Growth Status 08/08/25 19:21 Leg Left Gram Stain - Final Resulted 08/08/25 19:21 Leg Left Wound Culture - Preliminary Resulted 08/06/25 18:34 Voided Urine Urine Culture - Preliminary Resulted 08/06/25 16:33 Blood Blood Culture - Preliminary NO GROWTH AFTER 72 HOURS OF INCUBATION. Resulted Labs and/or images reviewed: Labs reviewed by me, Image(s) reviewed by me Assessment/Plan Assessment/Plan Acute diabetic ketoacidosis Acute hyperglycemia with a blood sugar 586, insulin aggressive sliding scale, Lantus now blood sugars under control Acute hyponatremia Anemia, unspecified Acute kidney injury superimposed on chronic kidney disease Persistent nausea and vomiting GI consult appreciated Noncompliance, patient was discharged two days ago, not taking insulin properly and ended up back in the hospital Acute urinary tract infection: Rocephin: Blood cultures negative, urine cultures mixed Per patient he was with [facility], does not want to go back on hospice Possible residential facility placement Plan discussed with: Patient Date of Service: Aug 10, 2025 Billing Provider: AYSE HUMPHREY MD Common Visit Codes: [id number] INP/OBS CARE(HIGH) AYSE HUMPHREY MD Aug 10, 2025 11:45
--- NOTE | 2025-08-10 16:43 | PRN ---
Misceleneous Note Note Note 08/10/2025 Subjective: Patient is feeling better Current Medications Medications (Trade) Dose Ordered Sig/Niesha Route Start Time Stop Time Status Last Admin Dose Admin Ceftriaxone Sodium 50 ml @ 100 mls/hr DAILY@09 IV 08/07/25 09:00 08/10/25 08:48 Dextrose 50 ml UD PRN IV 08/06/25 20:45 Cancel Acetaminophen/ Hydrocodone Bitart ([place] 5/325MG Tab) 1 tab Q4HP PRN PO 08/06/25 20:45 08/09/25 22:58 Ondansetron HCl (Zofran) 4 mg Q4HP PRN IV 08/06/25 20:45 08/09/25 09:15 Acetaminophen (Tylenol Tablet) 650 mg Q6HP PRN PO 08/06/25 20:45 Diagnostic Test (Pha) (Accu-Chek Comfort Curve T) 1 strip Q6HR 08/07/25 18:00 08/10/25 12:00 Insulin Human Regular (InsuLIN R) Q6HR SC 08/07/25 18:00 08/10/25 12:00 Dextrose 50 ml UD PRN IV 08/07/25 13:15 Insulin Glargine (Lantus) 20 units HS SC 08/07/25 22:00 08/09/25 23:04 Vital Signs Date Time Temp Pulse Resp B/P (MAP) Pulse Ox O2 Delivery O2 Flow Rate FiO2 08/10/25 16:33 98.6 95 20 139/80 (99) 97 98.6 08/10/25 13:09 97.6 104 18 146/85 (105) 97 97.6 08/10/25 08:41 98.0 106 18 119/66 (83) 99 98.0 08/10/25 08:00 105 20 97 Room Air* 0 21 08/10/25 05:00 98.7 103 18 112/64 (80) 98 98.7 08/10/25 01:00 98.2 97 18 129/70 (89) 96 98.2 08/09/25 21:00 98.6 108 18 126/67 (86) 100 98.6 08/09/25 20:00 18 96 Room Air* 0 21 Lab Test 08/10/25 12:34 08/10/25 06:07 08/10/25 05:10 08/09/25 22:55 Range/Units POC Glucose 251 H 108 H 179 H 70-106 mg/dl White Blood Count 6.1 4.4-10.8 10^3/uL Red Blood Count 4.12 L 4.5-5.90 10^6/uL Hemoglobin 12.4 L 13.5-17.5 g/dL Hematocrit 36.9 L 41.0-53.0 % Mean Corpuscular Volume 89.5 80.0-100.0 fL Mean Corpuscular Hemoglobin 30.0 28.0-32.0 pg Mean Corpuscular Hemoglobin Concent 33.6 32.0-36.0 g/dL Red Cell Distribution Width 13.0 11.8-14.3 % Platelet Count 471 H 140-450 10^3/uL Mean Platelet Volume 7.9 6.9-10.8 fL Neutrophils (%) (Auto) 67.4 37.0-80.0 % Lymphocytes (%) (Auto) 20.8 10.0-50.0 % Monocytes (%) (Auto) 10.0 0.0-12.0 % Eosinophils (%) (Auto) 0.8 0.0-7.0 % Basophils (%) (Auto) 1.0 0.0-2.0 % Neutrophils # (Auto) 4.1 1.6-8.6 10 ^3/uL Lymphocytes # (Auto) 1.3 0.4-5.4 10 ^3/uL Monocytes # (Auto) 0.6 0-1.3 10 ^3/uL Eosinophils # (Auto) 0 0-0.8 10 ^3/uL Basophils # (Auto) 0.1 0-0.2 10 ^3/uL Nucleated Red Blood Cells 0.3 % Sodium Level 141 136-145 mmol/L Potassium Level 3.9 3.5-5.1 mmol/L Chloride Level 108 H 98-107 mmol/L Carbon Dioxide Level 18 L 20-31 mmol/L Anion Gap 15 5-15 Blood Urea Nitrogen 14 9-23 mg/dL Creatinine 1.22 0.700-1.30 mg/dL Glomerular Filtration Rate Calc 68 >90 mL/min BUN/Creatinine Ratio 11.5 10.0-20.0 Serum Glucose 89 74-106 mg/dL Calcium Level 8.6 L 8.7-10.4 mg/dL Total Bilirubin 0.2 0.2-1.0 mg/dL Aspartate Amino Transferase (AST) 19 13-40 U/L Alanine Aminotransferase (ALT) 16 7-40 U/L Alkaline Phosphatase 98 46-116 U/L Total Protein 6.6 5.7-8.2 g/dL Albumin 3.8 3.2-4.8 g/dL Test 08/09/25 18:09 Range/Units POC Glucose 223 H 70-106 mg/dl Vital Signs Date Time Temp Pulse Resp B/P (MAP) Pulse Ox O2 Delivery O2 Flow Rate FiO2 08/10/25 16:33 98.6 95 20 139/80 (99) 97 98.6 08/10/25 08:00 Room Air* 0 21 General: Well-developed well-nourished HEENT: NC/AT EOMI PERRLA O/P clear, no JVD or cervical lymphadenopathy, no scleral icterus Heart: Regular rate and rhythm, no murmurs rubs or gallops Lungs: Clear to auscultation bilaterally, no wheezes rales or rhonchi Abdomen: Soft, nontender, nondistended, no organomegaly, normoactive bowel sounds Extremity: Right AKA Neuro: Cranial nerves 2-12 grossly intact, moves all four extremities, no asterixis Impression DKA Nausea and vomiting Abdominal pain Recommendations: One. Diabetes control 2. Antiemetics 3. No indication for Esophagogastroduodenoscopy at this time 4. Diet as tolerated NICK SUAREZ MD Aug 10, 2025 16:42
[2025-08-11] VITALS (7 sets, daily range): BP systolic 122–153; BP diastolic 72–89; PULSE 95–108; RESP 16–20; TEMP 97.9–98.5; O2SAT 99–100
--- NOTE | 2025-08-11 13:18 | DVHPN2 ---
Reviewed: Care Plan, H&P, Labs, Medications, Previous Orders, Radiology Changes from previous H/P or p: No Changes Objective Vitals Vital Signs Date Time Temp Pulse Resp B/P (MAP) Pulse Ox O2 Delivery O2 Flow Rate FiO2 08/11/25 08:56 98.5 108 20 123/73 (90) 99 98.5 08/11/25 08:10 Room Air* 0 21 Intake/Output Intake and Output 08/11/25 07:00 Intake Total 1350 ml Output Total 1950 ml Balance -600 ml Intake Oral 1300 ml IV Total 50 ml Output Urine Total 1950 ml Medications Current Medications Medications Dose Ordered Sig/Niesha Route Start Time Stop Time Status Last Admin Dose Admin Ceftriaxone Sodium 50 ml @ 100 mls/hr DAILY@09 IV 08/07/25 09:00 08/11/25 09:04 100 MLS/HR Dextrose 50 ml UD PRN IV 08/06/25 20:45 Cancel Acetaminophen/ Hydrocodone Bitart 1 tab Q4HP PRN PO 08/06/25 20:45 08/09/25 22:58 1 TAB Ondansetron HCl 4 mg Q4HP PRN IV 08/06/25 20:45 08/09/25 09:15 4 MG Acetaminophen 650 mg Q6HP PRN PO 08/06/25 20:45 Diagnostic Test (Pha) 1 strip Q6HR 08/07/25 18:00 08/11/25 11:32 1 STRIP Insulin Human Regular Q6HR SC 08/07/25 18:00 08/11/25 11:32 8 UNITS Dextrose 50 ml UD PRN IV 08/07/25 13:15 Insulin Glargine 20 units HS SC 08/07/25 22:00 08/10/25 23:21 20 UNITS Laboratory Results Laboratory Tests 08/10/25 05:10 Urinalysis Test 08/06/25 18:34 Urine Color Colorless (Yellow) Urine Clarity Clear (Clear) Urine pH 5.5 (5.0-9.0) Urine Specific [place] 1.004 (1.001-1.035) Urine Protein Trace (Negative) H Urine Ketones Negative (Negative) Urine Blood Negative /uL (Negative) Urine Nitrite Negative (Negative) Urine Bilirubin Negative (Negative) Urine Urobilinogen Normal mg/dL (Negative) Urine Leukocyte Esterase 2+ /uL (Negative) Urine RBC <1 /hpf (0 - 3) Urine Microscopic WBC 19 /HPF (0-3) H Urine Squamous Epithelial Cells Few /hpf (<5) Urine Bacteria None seen /hpf (None Seen) Urine Glucose 4+ mg/dL (Normal) H Microbiology Microbiology Date/Time Source Procedure Growth Status 08/08/25 19:21 Leg Left Gram Stain - Final Resulted 08/08/25 19:21 Leg Left Wound Culture - Preliminary Resulted 08/06/25 18:34 Voided Urine Urine Culture - Final Complete 08/06/25 16:33 Blood Blood Culture - Preliminary NO GROWTH AFTER 72 HOURS OF INCUBATION. Resulted Labs and/or images reviewed: Labs reviewed by me, Image(s) reviewed by me Assessment/Plan Assessment/Plan Acute diabetic ketoacidosis Acute hyperglycemia with a blood sugar 586, insulin aggressive sliding scale, Lantus now blood sugars under control Acute hyponatremia Anemia, unspecified Acute kidney injury superimposed on chronic kidney disease Persistent nausea and vomiting GI consult appreciated no indication for EGD Noncompliance, patient was discharged two days ago, not taking insulin properly and ended up back in the hospital Acute urinary tract infection: Rocephin: Blood cultures negative, urine cultures mixed Per patient he was with [facility], does not want to go back on hospice Possible discharge home tomorrow Monday Plan discussed with: Patient Date of Service: Aug 11, 2025 Billing Provider: AYSE HUMPHREY MD Common Visit Codes: [id number] INP/OBS CARE(HIGH) AYSE HUMPHREY MD Aug 11, 2025 13:18
--- NOTE | 2025-08-11 18:01 | DVHPN2 ---
Progress Note - Dictate Date Seen: Aug 11, 2025 Medical Necessity Reason Pt with a Central, PICC or Fol: No Subjective No new complaints Patient tolerating diet He complains of mild epigastric discomfort vital signs Vital Sign Date Time Temp Pulse Resp B/P (MAP) Pulse Ox O2 Delivery O2 Flow Rate FiO2 08/11/25 17:02 98.5 97 20 147/85 (105) 100 98.5 08/11/25 08:10 Room Air* 0 21 Total Intake and Output 08/10/25 08/10/25 08/11/25 15:00 23:00 07:00 Intake Total 50 ml 900 ml 400 ml Output Total 1250 ml 700 ml Balance 50 ml -350 ml -300 ml medications Current Medications Medications Dose Ordered Sig/Niesha Route Start Time Stop Time Status Last Admin Dose Admin Ceftriaxone Sodium 50 ml @ 100 mls/hr DAILY@09 IV 08/07/25 09:00 08/11/25 09:04 100 MLS/HR Dextrose 50 ml UD PRN IV 08/06/25 20:45 Cancel Acetaminophen/ Hydrocodone Bitart 1 tab Q4HP PRN PO 08/06/25 20:45 08/09/25 22:58 1 TAB Ondansetron HCl 4 mg Q4HP PRN IV 08/06/25 20:45 08/09/25 09:15 4 MG Acetaminophen 650 mg Q6HP PRN PO 08/06/25 20:45 Diagnostic Test (Pha) 1 strip Q6HR 08/07/25 18:00 08/11/25 11:32 1 STRIP Insulin Human Regular Q6HR SC 08/07/25 18:00 08/11/25 11:32 8 UNITS Dextrose 50 ml UD PRN IV 08/07/25 13:15 Insulin Glargine 20 units HS SC 08/07/25 22:00 08/10/25 23:21 20 UNITS objective General: Well-developed well-nourished HEENT: NC/AT EOMI PERRLA O/P clear, no JVD or cervical lymphadenopathy, no scleral icterus Heart: Regular rate and rhythm, no murmurs rubs or gallops Lungs: Clear to auscultation bilaterally, no wheezes rales or rhonchi Abdomen: Soft, nontender, nondistended, no organomegaly, normoactive bowel sounds Extremity: Right AKA Neuro: Cranial nerves 2-12 grossly intact, moves all four extremities, no asterixis laboratory and microbiology Laboratory Tests 08/10/25 05:10 Test 08/10/25 05:10 Range/Units Serum Glucose 89 74-106 mg/dL Problems(with codes): (1) DKA (diabetic ketoacidosis) (2) Epigastric pain (3) Pancreatitis (4) Hyperglycemia due to diabetes mellitus Prognosis Plan Continue supportive care Protonix plus Carafate Monitor labs including lipase Patient does not want endoscopy at this time Discharge planning as per hospitalist Dietary Evaluation Review Comments: 1) Initiate MVI @ 1 tb qd 2) Initiate vitamin C @ 500 mg bid and zinc sulfate @ 220 mg qd for 7 days 3) Advance to 60g CCHO cardiac diet when medically feasible 4) Collect HbA1c 5) Refer to outpatient RD/[facility] for diabetes education 6) Follow-up with cardiology and hepatology 7) Continue to monitor I&O, labs, and skin integrity Expected Outcomes/Goals: 1) appetite and labs to improve 2) diet to advance 3) wound to improve 4) f/u in 3-5 days Plan discussed with: Patient BENEDICTO KIRKPATRICK MD Aug 11, 2025 18:01
[2025-08-12 00:53] VITALS: BP 104/52; PULSE 101; RESP 18; TEMP 98.4; O2SAT 98
[2025-08-12 05:00] VITALS: BP 108/60; PULSE 99; RESP 18; TEMP 98.4; O2SAT 99
[2025-08-12 07:30] VITALS: RESP 16
[2025-08-12 09:00] VITALS: BP 114/58; PULSE 97; RESP 18; TEMP 97.9; O2SAT 100
--- NOTE | 2025-08-12 11:58 | DVHPN2 ---
Reviewed: Care Plan, H&P, Labs, Medications, Previous Orders, Radiology Changes from previous H/P or p: No Changes Objective Vitals Vital Signs Date Time Temp Pulse Resp B/P (MAP) Pulse Ox O2 Delivery O2 Flow Rate FiO2 08/12/25 09:00 97.9 97 18 114/58 (76) 100 97.9 08/11/25 20:00 Room Air* 0 21 Intake/Output Intake and Output 08/12/25 07:00 Intake Total 1800 ml Output Total 1350 ml Balance 450 ml Intake Oral 1800 ml Output Urine Total 1350 ml # Voids 2 # Bowel Movements 2 Medications Current Medications Medications Dose Ordered Sig/Niesha Route Start Time Stop Time Status Last Admin Dose Admin Ceftriaxone Sodium 50 ml @ 100 mls/hr DAILY@09 IV 08/07/25 09:00 08/12/25 09:02 100 MLS/HR Dextrose 50 ml UD PRN IV 08/06/25 20:45 Cancel Acetaminophen/ Hydrocodone Bitart 1 tab Q4HP PRN PO 08/06/25 20:45 08/12/25 09:01 1 TAB Ondansetron HCl 4 mg Q4HP PRN IV 08/06/25 20:45 08/09/25 09:15 4 MG Acetaminophen 650 mg Q6HP PRN PO 08/06/25 20:45 Diagnostic Test (Pha) 1 strip Q6HR 08/07/25 18:00 08/12/25 11:38 1 STRIP Insulin Human Regular Q6HR SC 08/07/25 18:00 08/12/25 11:38 2 UNITS Dextrose 50 ml UD PRN IV 08/07/25 13:15 Insulin Glargine 20 units HS SC 08/07/25 22:00 08/11/25 21:35 20 UNITS Laboratory Results Laboratory Tests 08/10/25 05:10 Urinalysis Test 08/06/25 18:34 Urine Color Colorless (Yellow) Urine Clarity Clear (Clear) Urine pH 5.5 (5.0-9.0) Urine Specific [place] 1.004 (1.001-1.035) Urine Protein Trace (Negative) H Urine Ketones Negative (Negative) Urine Blood Negative /uL (Negative) Urine Nitrite Negative (Negative) Urine Bilirubin Negative (Negative) Urine Urobilinogen Normal mg/dL (Negative) Urine Leukocyte Esterase 2+ /uL (Negative) Urine RBC <1 /hpf (0 - 3) Urine Microscopic WBC 19 /HPF (0-3) H Urine Squamous Epithelial Cells Few /hpf (<5) Urine Bacteria None seen /hpf (None Seen) Urine Glucose 4+ mg/dL (Normal) H Microbiology Microbiology Date/Time Source Procedure Growth Status 08/08/25 19:21 Leg Left Gram Stain - Final Complete 08/08/25 19:21 Leg Left Wound Culture - Final Complete 08/06/25 18:34 Voided Urine Urine Culture - Final Complete 08/06/25 16:33 Blood Blood Culture - Final NO GROWTH AFTER 5 DAYS OF INCUBATION. Complete Labs and/or images reviewed: Labs reviewed by me, Image(s) reviewed by me Assessment/Plan Assessment/Plan Acute diabetic ketoacidosis Acute hyperglycemia with a blood sugar 586, insulin aggressive sliding scale, Lantus now blood sugars under control Acute hyponatremia Anemia, unspecified Acute kidney injury superimposed on chronic kidney disease Persistent nausea and vomiting GI consult appreciated no indication for EGD Noncompliance, patient was discharged two days ago, not taking insulin properly and ended up back in the hospital Acute urinary tract infection: Rocephin: Blood cultures negative, urine cultures mixed Per patient he was with [facility], does not want to go back on hospice Patient feels better being discharged home Plan discussed with: Patient Date of Service: Aug 12, 2025 Billing Provider: AYSE HUMPHREY MD Common Visit Codes: [id number] INP/OBS CARE(HIGH) AYSE HUMPHREY MD Aug 12, 2025 11:58
--- NOTE | 2025-08-12 12:04 | DVHDS2 ---
Discharge Summary Date of Admission Aug 06, 2025 at 19:50 Date of Discharge: Aug 12, 2025 Admitting Diagnosis Uncontrolled blood sugars Wounds: None Labs/Diagnostic Data: Laboratory Results Test 08/12/25 11:22 08/10/25 05:10 08/06/25 18:55 08/06/25 18:34 POC Glucose 138 mg/dl (70-106) White Blood Count 6.1 10^3/uL (4.4-10.8) Red Blood Count 4.12 10^6/uL (4.5-5.90) Hemoglobin 12.4 g/dL (13.5-17.5) Hematocrit 36.9 % (41.0-53.0) Mean Corpuscular Volume 89.5 fL (80.0-100.0) Mean Corpuscular Hemoglobin 30.0 pg (28.0-32.0) Mean Corpuscular Hemoglobin Concent 33.6 g/dL (32.0-36.0) Red Cell Distribution Width 13.0 % (11.8-14.3) Platelet Count 471 10^3/uL (140-450) Mean Platelet Volume 7.9 fL (6.9-10.8) Neutrophils (%) (Auto) 67.4 % (37.0-80.0) Lymphocytes (%) (Auto) 20.8 % (10.0-50.0) Monocytes (%) (Auto) 10.0 % (0.0-12.0) Eosinophils (%) (Auto) 0.8 % (0.0-7.0) Basophils (%) (Auto) 1.0 % (0.0-2.0) Neutrophils # (Auto) 4.1 10 ^3/uL (1.6-8.6) Lymphocytes # (Auto) 1.3 10 ^3/uL (0.4-5.4) Monocytes # (Auto) 0.6 10 ^3/uL (0-1.3) Eosinophils # (Auto) 0 10 ^3/uL (0-0.8) Basophils # (Auto) 0.1 10 ^3/uL (0-0.2) Nucleated Red Blood Cells 0.3 % Sodium Level 141 mmol/L (136-145) Potassium Level 3.9 mmol/L (3.5-5.1) Chloride Level 108 mmol/L (98-107) Carbon Dioxide Level 18 mmol/L (20-31) Anion Gap 15 (5-15) Blood Urea Nitrogen 14 mg/dL (9-23) Creatinine 1.22 mg/dL (0.700-1.30) Glomerular Filtration Rate Calc 68 mL/min (>90) BUN/Creatinine Ratio 11.5 (10.0-20.0) Serum Glucose 89 mg/dL (74-106) Calcium Level 8.6 mg/dL (8.7-10.4) Total Bilirubin 0.2 mg/dL (0.2-1.0) Aspartate Amino Transferase (AST) 19 U/L (13-40) Alanine Aminotransferase (ALT) 16 U/L (7-40) Alkaline Phosphatase 98 U/L (46-116) Total Protein 6.6 g/dL (5.7-8.2) Albumin 3.8 g/dL (3.2-4.8) Lactic Acid Level 2.7 mmol/L (0.4-2.0) Urine Color Colorless (Yellow) Urine Clarity Clear (Clear) Urine pH 5.5 (5.0-9.0) Urine Specific [place] 1.004 (1.001-1.035) Urine Protein Trace (Negative) Urine Ketones Negative (Negative) Urine Blood Negative /uL (Negative) Urine Nitrite Negative (Negative) Urine Bilirubin Negative (Negative) Urine Urobilinogen Normal mg/dL (Negative) Urine Leukocyte Esterase 2+ /uL (Negative) Urine RBC <1 /hpf (0 - 3) Urine Microscopic WBC 19 /HPF (0-3) Urine Squamous Epithelial Cells Few /hpf (<5) Urine Bacteria None seen /hpf (None Seen) Urine Glucose 4+ mg/dL (Normal) Test 08/06/25 16:36 08/06/25 16:15 Blood Gas Specimen Type Arterial Blood Gas Sample Site Right radial Blood Gas Patient Temperature 37.0 Arterial Blood Date Drawn [id number] Arterial Blood pH 7.328 (7.350-7.450) Arterial Blood Partial Pressure CO2 33.6 mmHg (35.0-48.0) Arterial Blood Partial Pressure O2 72.0 mmHg (83.0-108.0) Arterial Blood HCO3 17.2 mmol/L (21.0-28.0) Arterial Blood Oxygen Saturation 92.4 % (94.0-98.0) Arterial Blood Base Excess -7.8 mmol/L (-2.0-3.0) Arterial Blood Oxyhemoglobin 91.7 % (94.0-98.0) Arterial Blood Carboxyhemoglobin 0.3 % (0.5-1.5) Arterial Blood Methemoglobin 0.5 % (0.0-1.5) Carmelo Test Yes Blood Gas Total Hemoglobin 12.40 g/dL (13.5-17.5) Blood Gas Modality Room air FiO2 % 21.0 Troponin I High Sensitivity < 3 ng/L (</=54) Lipase 66 U/L (12-53) Beta-Hydroxybutyric Acid 0.188 mmol/L (< 0.4) Other Laboratory Tests 08/10/25 05:10 Brief Hx & Hospital Course: 59-year-old male insulin-dependent diabetes noncompliant came in for generalized weakness nausea blood sugars [place] [place] six placed on aggressive insulin sliding scale and Lantus and blood sugars controlled ELVIS resolved. Nausea and vomiting seen by GI Dr. José advised no indications for EGD patient was advised about compliance he was here last week and discharged home and was not taking insulin came back and got readmitted Discharged home on Lantus and regular insulin. as he has a no primary Dr he will follow up with discharge clinic in one. Handwritten prescription given for Lantus and Humalog. Consults/Reason for consult GI Dr. Elyssa José Operations or Procedures None Condition at Discharge: Fair Final Diagnosis/Problems List Acute diabetic ketoacidosis Acute hyperglycemia with a blood sugar 586, insulin aggressive sliding scale, Lantus now blood sugars under control Acute hyponatremia Anemia, unspecified Acute kidney injury superimposed on chronic kidney disease Persistent nausea and vomiting GI consult appreciated no indication for EGD Noncompliance, patient was discharged two days ago, not taking insulin properly and ended up back in the hospital Acute urinary tract infection: Rocephin: Blood cultures negative, urine cultures mixed Discharge Disposition: Home Discharge Instruct/Medications Diet: Consistent carbohydrate Activity: Light activity Follow Up/Referral: Follow up with discharge clinic in one week Check blood sugars 3 times a day before meals and take insulin according to sliding scale Medications: Lantus insulin Humalog Handwritten prescription given Scheduled Amlodipine Besylate (Amlodipine Besylate), 1 TAB PO DAILY, (Reported) Apixaban Base (Eliquis), 1 TAB PO BID, (Reported) Aspirin (Aspirin Low Dose), 1 TAB PO DAILY, (Reported) Atorvastatin Calcium (Atorvastatin Calcium), 1.5 TAB PO DAILY, (Reported) Ertugliflozin l-Pyroglutamic A (Steglatro), 1 TAB PO DAILY IN AM, (Reported) Fluoxetine HCl (Fluoxetine HCl), 2 CAP PO QAM, (Reported) Folic Acid (Folic Acid), 1 TAB PO DAILY, (Reported) Gabapentin (Gabapentin), 1 CAP PO TID, (Reported) Insulin Glargine (Lantus Solostar), 15 UNIT SC BID Losartan Potassium (Losartan Potassium), 1 TAB PO DAILY@BREAKFAST, (Reported) Metoprolol Tartrate (Lopressor Tablet), 1 TAB PO BID, (Reported) Olanzapine (Olanzapine), 1 TAB PO QPM, (Reported) Quetiapine Fumerate (Quetiapine Fumarate), 1 TAB PO HS, (Reported) Temazepam (Temazepam), 1 CAP PO HS, (Reported) Scheduled PRN Baclofen (Baclofen), 1 TAB PO BIDP PRN for FOR MUSCLE SPASM, (Reported) Hydrocodone-Acetaminophen (Hydrocodone Bitartrate/AC 10-325 mg), 1 TAB PO Q8HPRN PRN for PAIN SCALE 7 THRU 10, (Reported) Hydroxyzine HCl (Hydroxyzine Hydrochloride), 1 TAB PO TIDP PRN for ANXIETY, (Reported) Insulin Aspart (Novolog Flexpen Relion), 1-10 UNIT SC TIDWM PRN Discontinued Medications Insulin Glargine (Lantus), 40 UNIT SC HS, (Reported) Insulin Lispro (Insulin Lispro), 0-6 UNIT SC QID, (Reported) Metformin Hydrochloride (Metformin Hcl), 850 MG PO BID, (Reported) 39 (Time Taken for discharge summary 39 minutes) Discharge Statement: "Patient was advised to return to the ER or call 911 if any headaches, dizziness, shortness of breath, chest pain, abdominal pain, bleeding, fevers, or worsening of medical condition. Patient was counseled about treatment plan, medications, possible side effects, patientverbalized understanding. All questions were answered to the best of my ability. This discharge took greater then 30 minutes in planning, reviewing documentation, counseling the patient, and discussing with other team members." ASSESSMENT ASSESSMENT Hospital Course Improved Assessment Acute diabetic ketoacidosis Acute hyperglycemia with a blood sugar 586, insulin aggressive sliding scale, Lantus now blood sugars under control Acute hyponatremia Anemia, unspecified Acute kidney injury superimposed on chronic kidney disease Persistent nausea and vomiting GI consult appreciated no indication for EGD Noncompliance, patient was discharged two days ago, not taking insulin properly and ended up back in the hospital Acute urinary tract infection: Rocephin: Blood cultures negative, urine cultures mixed Date of Service: Aug 12, 2025 Billing Provider: AYSE HUMPHREY MD Common Visit Codes: [id number]/[id number] DISCH DAY >30min AYSE HUMPHREY MD Aug 12, 2025 12:04
--- NOTE | 2025-08-12 12:21 | DVHCONRES ---
Date Seen: Aug 12, 2025 Reason for Consultation Left Achilles wound History of Present Illness 59-year-old male presents for evaluation of hyperglycemia. Patient had a follow up appointment today post discharge. He was noted to be hypotensive and with a blood sugar greater than 500. Patient also reports mild dysuria. No nausea or abdominal pain. No fever or chills. No other acute complaints reported. Past Medical History See H&P Past Surgical History See H&P Family History: Patient reports no known family medical history. Allergies: Coded Allergies: Egg Solids, Whole (Verified Allergy, Intermediate, VOMITING, 08/08/25) Home Meds Active Scripts Insulin Aspart (Novolog Flexpen Relion) 100 Unit/Ml Inj, 1-10 UNIT SC TIDWM PRN, #1 INJ 1 Refill [id number]; 180=4u; 240=6u; 300=8u; 350=10u; >400-12u+ED Prov:SUKI ARAUJO MD 08/05/25 Insulin Glargine (Lantus Solostar) 100 Unit/Ml Inj, 15 UNIT SC BID for 30 Days, #3 INJ 1 Refill Prov:SUKI ARAUJO MD 08/05/25 Reported Medications Hydrocodone-Acetaminophen (Hydrocodone Bitartrate/AC 10-325 mg) 1 Tab Tab, 1 TAB PO Q8HPRN PRN for PAIN SCALE 7 THRU 10, TAB 08/08/25 Aspirin (Aspirin Low Dose) 81 Mg Chw, 1 TAB PO DAILY, #30 TAB 3 Refills 08/08/25 Baclofen (Baclofen) 20 Mg Tab, 1 TAB PO BIDP PRN for FOR MUSCLE SPASM for 50 Days, #100 04/02/25 Gabapentin (Gabapentin) 400 Mg Cap, 1 CAP PO TID for 90 Days, #270 04/02/25 Hydroxyzine HCl (Hydroxyzine Hydrochloride) 50 Mg Tab, 1 TAB PO TIDP PRN for ANX IETY for 30 Days, #90 04/02/25 Metoprolol Tartrate (LOPRESSOR TABLET) 50 Mg Tb, 1 TAB PO BID for 30 Days, #60 04/02/25 Amlodipine Besylate (Amlodipine Besylate) 10 Mg Tab, 1 TAB PO DAILY for 30 Days, #30 04/02/25 Olanzapine (OLANZAPINE) 2.5 Mg Tab, 1 TAB PO QPM for 30 Days, #30 04/02/25 Fluoxetine HCl (Fluoxetine HCl) 20 Mg Cap, 2 CAP PO QAM for 30 Days, #60 04/02/25 Apixaban Base (ELIQUIS) 5 Mg Tab, 1 TAB PO BID for 90 Days, #180 03/15/25 Ertugliflozin l-Pyroglutamic A (Steglatro) 5 Mg Tab, 1 TAB PO DAILY IN AM for 90 Days, #90 03/15/25 Quetiapine Fumerate (QUETIAPINE FUMARATE) 100 Mg Tab, 1 TAB PO HS for 30 Days, #30 03/15/25 Folic Acid (Folic Acid) 1 Mg Tab, 1 TAB PO DAILY for 90 Days, #90 03/15/25 Temazepam (Temazepam) 30 Mg Cap, 1 CAP PO HS for INSOMNIA for 30 Days, #30 03/15/25 Atorvastatin Calcium (ATORVASTATIN CALCIUM) 20 Mg Tab, 1.5 TAB PO DAILY for 90 Days, #135 30 MG PO IN THE MORNING 03/15/25 Losartan Potassium (Losartan Potassium) 50 Mg Tab, 1 TAB PO DAILY@BREAKFAST for 90 Days, #90 HOLD FOR BP < 110 OR HR <60 03/15/25 Discontinued Reported Medications Metformin Hydrochloride (Metformin Hcl) 850 Mg Tab, 850 MG PO BID for 90 Days, #180 03/15/25 Insulin Lispro (Insulin Lispro) 100 Unit/Ml Inj, 0-6 UNIT SC QID for 30 Days, #10 INJECT 0-6 UNITS UNDER THE SKIN FOUR TIMES DAILY BEFORE MEALS AND AT BEDTIME. 04/02/25 Insulin Glargine (Lantus) 100 Unit/Ml Inj, 40 UNIT SC HS for 75 Days, #30 03/15/25 Vital Signs Vital Signs Date Time Temp Pulse Resp B/P (MAP) Pulse Ox O2 Delivery O2 Flow Rate FiO2 08/12/25 09:00 97.9 97 18 114/58 (76) 100 97.9 08/11/25 20:00 Room Air* 0 21 Physical Exam Dermatological: Skin is dry with mild erythema and some maceration around the wound site No gross deformities noted Mild non-pitting edema present bilaterally Left posterior Achilles wound with granular base Vascular: Dorsalis pedis and posterior tibial pulses are 1+ bilaterally Capillary refill is under 2 seconds Skin temperature is warm bilaterally Neurologic: Protective sensation is absent on the plantar forefoot bilaterally Monofilament testing reveals decreased sensation in multiple plantar sites Musculoskeletal: Range of motion at the ankle and MTP joints is within normal limits. Strength is 5/5 in all tested muscle groups. Gait is antalgic due to offloading of the affected limb. Labs/Diagnostic Data Labs Test 08/12/25 11:22 08/10/25 05:10 08/06/25 18:55 08/06/25 18:34 Range/Units POC Glucose 138 H 70-106 mg/dl White Blood Count 6.1 4.4-10.8 10^3/uL Red Blood Count 4.12 L 4.5-5.90 10^6/uL Hemoglobin 12.4 L 13.5-17.5 g/dL Hematocrit 36.9 L 41.0-53.0 % Mean Corpuscular Volume 89.5 80.0-100.0 fL Mean Corpuscular Hemoglobin 30.0 28.0-32.0 pg Mean Corpuscular Hemoglobin Concent 33.6 32.0-36.0 g/dL Red Cell Distribution Width 13.0 11.8-14.3 % Platelet Count 471 H 140-450 10^3/uL Mean Platelet Volume 7.9 6.9-10.8 fL Neutrophils (%) (Auto) 67.4 37.0-80.0 % Lymphocytes (%) (Auto) 20.8 10.0-50.0 % Monocytes (%) (Auto) 10.0 0.0-12.0 % Eosinophils (%) (Auto) 0.8 0.0-7.0 % Basophils (%) (Auto) 1.0 0.0-2.0 % Neutrophils # (Auto) 4.1 1.6-8.6 10 ^3/uL Lymphocytes # (Auto) 1.3 0.4-5.4 10 ^3/uL Monocytes # (Auto) 0.6 0-1.3 10 ^3/uL Eosinophils # (Auto) 0 0-0.8 10 ^3/uL Basophils # (Auto) 0.1 0-0.2 10 ^3/uL Nucleated Red Blood Cells 0.3 % Sodium Level 141 136-145 mmol/L Potassium Level 3.9 3.5-5.1 mmol/L Chloride Level 108 H 98-107 mmol/L Carbon Dioxide Level 18 L 20-31 mmol/L Anion Gap 15 5-15 Blood Urea Nitrogen 14 9-23 mg/dL Creatinine 1.22 0.700-1.30 mg/dL Glomerular Filtration Rate Calc 68 >90 mL/min BUN/Creatinine Ratio 11.5 10.0-20.0 Serum Glucose 89 74-106 mg/dL Calcium Level 8.6 L 8.7-10.4 mg/dL Total Bilirubin 0.2 0.2-1.0 mg/dL Aspartate Amino Transferase (AST) 19 13-40 U/L Alanine Aminotransferase (ALT) 16 7-40 U/L Alkaline Phosphatase 98 46-116 U/L Total Protein 6.6 5.7-8.2 g/dL Albumin 3.8 3.2-4.8 g/dL Lactic Acid Level 2.7 *H 0.4-2.0 mmol/L Urine Color Colorless Yellow Urine Clarity Clear Clear Urine pH 5.5 5.0-9.0 Urine Specific [place] 1.004 1.001-1.035 Urine Protein Trace H Negative Urine Ketones Negative Negative Urine Blood Negative Negative /uL Urine Nitrite Negative Negative Urine Bilirubin Negative Negative Urine Urobilinogen Normal Negative mg/dL Urine Leukocyte Esterase 2+ Negative /uL Urine RBC <1 0 - 3 /hpf Urine Microscopic WBC 19 H 0-3 /HPF Urine Squamous Epithelial Cells Few <5 /hpf Urine Bacteria None seen None Seen /hpf Urine Glucose 4+ H Normal mg/dL Test 08/06/25 16:36 08/06/25 16:15 Range/Units Blood Gas Specimen Type Arterial Blood Gas Sample Site Right radial Blood Gas Patient Temperature 37.0 Arterial Blood Date Drawn [id number] Arterial Blood pH 7.328 L 7.350-7.450 Arterial Blood Partial Pressure CO2 33.6 L 35.0-48.0 mmHg Arterial Blood Partial Pressure O2 72.0 L 83.0-108.0 mmHg Arterial Blood HCO3 17.2 L 21.0-28.0 mmol/L Arterial Blood Oxygen Saturation 92.4 L 94.0-98.0 % Arterial Blood Base Excess -7.8 L -2.0-3.0 mmol/L Arterial Blood Oxyhemoglobin 91.7 L 94.0-98.0 % Arterial Blood Carboxyhemoglobin 0.3 L 0.5-1.5 % Arterial Blood Methemoglobin 0.5 0.0-1.5 % Carmelo Test Yes Blood Gas Total Hemoglobin 12.40 L 13.5-17.5 g/dL Blood Gas Modality Room air FiO2 % 21.0 Troponin I High Sensitivity < 3 L </=54 ng/L Lipase 66 H 12-53 U/L Beta-Hydroxybutyric Acid 0.188 < 0.4 mmol/L Microbiology Date/Time Source Procedure Growth Status 08/08/25 19:21 Leg Left Gram Stain - Final Complete 08/08/25 19:21 Leg Left Wound Culture - Final Complete 08/06/25 18:34 Voided Urine Urine Culture - Final Complete 08/06/25 16:33 Blood Blood Culture - Final NO GROWTH AFTER 5 DAYS OF INCUBATION. Complete Problems(with codes): (1) Septic shock (2) Metabolic acidosis (3) Pneumonitis (4) Metabolic encephalopathy (5) Severe sepsis (6) Toxic encephalopathy (7) UTI (urinary tract infection) (8) Acute renal failure (9) Respiratory failure (10) Anemia (11) Hyponatremia (12) DKA (diabetic ketoacidosis) (13) Diabetes mellitus with ketoacidosis (14) Anemia, unspecified (15) Acute kidney injury superimposed on chronic kidney disease (16) Hyperglycemia due to diabetes mellitus (17) Epigastric pain (18) Pancreatitis Plan/Recommendation ASSESSMENT: Patient is a 59 year old seen on the floor for a worsening ulcer PLAN: - The patients chart was reviewed, clinical findings were discussed with the patient, the etiologies of the conditions were discussed in detail, and a treatment plan was agreed to at this time, with both oral and written instructions provided. - reviewed advanced imaging - discussed that the wound appears to be healing appropriately with granular base - continue outpatient wound care - 0 surgical intervention recommended at this point All questions were answered and concerns addressed to the patient's satisfaction. The patient was given the phone number to the clinic and was told how to make contact with the clinic should any concerns or questions arise. Patient understands that if any questions or concerns arise prior to the next appointment, we should be contacted immediately. FOLLOW-UP: Continue to follow while inpatient Plan discussed with: Patient Visit Coding Podiatry Date of Service if different f: Aug 12, 2025 Billing Provider: NAWAF FLORENTINO DPM Podiatry Common Visit Codes: CONSULT ONLY Podiatry Consult Codes: [id number]/OBS [id number] NEW/EST HI 80 NAWAF FLORENTINO DPM Aug 12, 2025 12:21
[2025-08-12 13:00] VITALS: BP 123/77; PULSE 95; RESP 18; TEMP 98.3; O2SAT 100
[2025-08-12 14:08] VITALS: BP 123/77; PULSE 95; RESP 18; TEMP 98.3; O2SAT 100
--- NOTE | 2025-08-12 20:31 | DVHPN2 ---
Progress Note - Dictate Date Seen: Aug 12, 2025 (Late entryTime of visit 2:00 p.m.) Medical Necessity Reason Pt with a Central, PICC or Fol: No Subjective No new complaints Patient tolerating diet He complains of mild epigastric discomfort Labs are improving Podiatry consult appreciated vital signs Vital Sign Date Time Temp Pulse Resp B/P (MAP) Pulse Ox O2 Delivery O2 Flow Rate FiO2 08/12/25 14:08 98.3 95 18 100 08/12/25 13:00 123/77 (92) 08/12/25 07:30 Room Air* 0 21 Total Intake and Output 08/11/25 08/11/25 08/12/25 15:00 23:00 07:00 Intake Total 1200 ml 600 ml Output Total 1350 ml Balance -150 ml 600 ml medications Current Medications Medications Dose Ordered Sig/Niesha Route Start Time Stop Time Status Last Admin Dose Admin Dextrose 50 ml UD PRN IV 08/06/25 20:45 Cancel objective General: Well-developed well-nourished HEENT: NC/AT EOMI PERRLA O/P clear, no JVD or cervical lymphadenopathy, no scleral icterus Heart: Regular rate and rhythm, no murmurs rubs or gallops Lungs: Clear to auscultation bilaterally, no wheezes rales or rhonchi Abdomen: Soft, nontender, nondistended, no organomegaly, normoactive bowel sounds Extremity: Right AKA Neuro: Cranial nerves 2-12 grossly intact, moves all four extremities, no asterixis laboratory and microbiology Laboratory Tests 08/10/25 05:10 Test 08/10/25 05:10 Range/Units Serum Glucose 89 74-106 mg/dL Problems(with codes): (1) Metabolic encephalopathy (2) Anemia (3) Pancreatitis (4) Epigastric pain (5) Diabetes mellitus with ketoacidosis Prognosis Plan Advance diet as tolerated Discharge planning is in progress Outpatient follow up with GI Services to discuss elective panendoscopy Once again thank you for allowing me to participate in the care of this patient Dietary Evaluation Review Comments: 1) Initiate MVI @ 1 tb qd 2) Initiate vitamin C @ 500 mg bid and zinc sulfate @ 220 mg qd for 7 days 3) Advance to 60g CCHO cardiac diet when medically feasible 4) Collect HbA1c 5) Refer to outpatient RD/[facility] for diabetes education 6) Follow-up with cardiology and hepatology 7) Continue to monitor I&O, labs, and skin integrity Expected Outcomes/Goals: 1) appetite and labs to improve 2) diet to advance 3) wound to improve 4) f/u in 3-5 days Plan discussed with: Patient BENEDICTO KIRKPATRICK MD Aug 12, 2025 20:31
== END 2025-08-12 16:11 | disposition home or self-care (01) | DRG 420 ==
LOC: ER 14:50 → OVERFLOW 19:50 → WEST WING 19:52
PROVIDERS: ADMIT Family Medicine; ATTEND Family Medicine
DX: E11.10 Type 2 diabetes mellitus with ketoacidosis without coma (principal); N17.0 Acute kidney failure with tubular necrosis; J18.9 Pneumonia, unspecified organism; Z89.611 Acquired absence of right leg above knee; E87.1 Hypo-osmolality and hyponatremia; N39.0 Urinary tract infection, site not specified; E11.22 Type 2 diabetes mellitus with diabetic chronic kidney disease; N18.9 Chronic kidney disease, unspecified; D64.9 Anemia, unspecified; F20.9 Schizophrenia, unspecified; E78.5 Hyperlipidemia, unspecified; I12.9 Hypertensive chronic kidney disease with stage 1 through stage 4 chronic kidney disease, or unspecified chronic kidney disease; Z86.73 Personal history of transient ischemic attack (TIA), and cerebral infarction without residual deficits; Z79.4 Long term (current) use of insulin; Z91.0120 Allergy to eggs, unspecified; T38.3X6A Underdosing of insulin and oral hypoglycemic [antidiabetic] drugs, initial encounter; Z91.148 Patient's other noncompliance with medication regimen for other reason; Y92.89 Other specified places as the place of occurrence of the external cause
CPT/HCPCS: 36415; 36600; 71045; 74177; 80048; 80053; 81001; 82010; 82805; 82962; 83605; 83690; 84484; 85025; 87040; 87081; 87086; 87205; 93005; 96361; 96365; G0378; J1815; J2405

== ENCOUNTER 2025-08-29 13:45 | Outpatient (CLI) | payer MEDICAID ==
[~2025-08-29 13:45] MED LIST changes: +ASPI81CH59 PO; +HYDR-4798 PO; -METF-371 PO
[2025-08-29 14:08] LABS: Hemoglobin 12.5 g/dL (13.5-17.5); Mean Corpuscular Volume 88.8 fL (80.0-100.0)
[2025-08-29 14:09] LABS: Hematocrit 38.1 % (41.0-53.0); Mean Corpuscular Hemoglobin 29.2 pg (28.0-32.0); Nucleated Red Blood Cells % 0.1 %
[2025-08-29 14:54] LABS: Alanine Aminotransferase 25 U/L (7-40); Carbon Dioxide 22 mmol/L (20-31); Potassium 4.9 mmol/L (3.5-5.1)
[2025-08-29 14:55] LABS: Albumin 4.1 g/dL (3.2-4.8); Alkaline Phosphatase 156 U/L (46-116); Anion Gap 12 (5-15); BUN/Creatinine Ratio 8.6 (10.0-20.0); Bilirubin, Total 0.3 mg/dL (0.2-1.0); Blood Urea Nitrogen 17 mg/dL (9-23); Calcium 8.3 mg/dL (8.7-10.4); Chloride 92 mmol/L (98-107); Cholesterol 182 mg/dL (< 200); HDL Cholesterol 43 mg/dL (40-59); Sodium 126 mmol/L (136-145); Total Protein 7.2 g/dL (5.7-8.2); Triglycerides 534 mg/dL (< 150)
[2025-08-29 15:04] LABS: Glucose 689 mg/dL (74-106)
== END 2025-09-01 17:00 | disposition home or self-care (01) ==
LOC: LAB 13:45
PROVIDERS: ATTEND Internal Medicine
DX: E11.65 Type 2 diabetes mellitus with hyperglycemia (principal); Z13.29 Encounter for screening for other suspected endocrine disorder
CPT/HCPCS: 36415; 80053; 80061; 82043; 83036; 84439; 84443; 85025

== ENCOUNTER 2025-09-02 10:56 | Inpatient (IN) | payer MEDICAID ==
[~2025-09-02] VITALS: Ht 165.1 cm; Wt 63.5 kg
--- NOTE | 2025-09-02 11:39 | ED.PDOC ---
GI ASSESSMENT HPI Comments 59 y/o M, with PMHx of DM, CVA, Liver cirrhosis, and schizophrenia presents to the ED for CC of abdominal pain. Patient states, he has been experiencing diffuse abdominal pain with associated symptoms of nausea and vomiting x3days. Upon arrival to the ED, patient is hyperglycemic with a blood sugar reading in the 400's; endorses currently no taking insulin. Patient denies vision changes, frequency, urgency, excessive thirst, or disorientation. No other symptoms or modifying factors are present at this time. Chief Complaint: Abdominal Pain Time Seen by MD: 11:30 Reviewed Notes: Nurses Notes, Director Of Radiology Notes, Medications, Allergies Allergies: Coded Allergies: Egg Solids, Whole (Verified Allergy, Intermediate, VOMITING, 08/08/25) Home Meds Active Scripts Insulin Aspart (Novolog Flexpen Relion) 100 Unit/Ml Inj, 1-10 UNIT SC TIDWM PRN, #1 INJ 1 Refill [id number]; 180=4u; 240=6u; 300=8u; 350=10u; >400-12u+ED Prov:SUKI ARAUJO MD 08/05/25 Insulin Glargine (Lantus Solostar) 100 Unit/Ml Inj, 15 UNIT SC BID for 30 Days, #3 INJ 1 Refill Prov:SUKI ARAUJO MD 08/05/25 Reported Medications Hydrocodone-Acetaminophen (Hydrocodone Bitartrate/AC 10-325 mg) 1 Tab Tab, 1 TAB PO Q8HPRN PRN for PAIN SCALE 7 THRU 10, TAB 08/08/25 Aspirin (Aspirin Low Dose) 81 Mg Chw, 1 TAB PO DAILY, #30 TAB 3 Refills 08/08/25 Baclofen (Baclofen) 20 Mg Tab, 1 TAB PO BIDP PRN for FOR MUSCLE SPASM for 50 Days, #100 04/02/25 Gabapentin (Gabapentin) 400 Mg Cap, 1 CAP PO TID for 90 Days, #270 04/02/25 Hydroxyzine HCl (Hydroxyzine Hydrochloride) 50 Mg Tab, 1 TAB PO TIDP PRN for ANXIETY for 30 Days, #90 04/02/25 Metoprolol Tartrate (LOPRESSOR TABLET) 50 Mg Tb, 1 TAB PO BID for 30 Days, #60 04/02/25 Amlodipine Besylate (Amlodipine Besylate) 10 Mg Tab, 1 TAB PO DAILY for 30 Days, #30 04/02/25 Olanzapine (OLANZAPINE) 2.5 Mg Tab, 1 TAB PO QPM for 30 Days, #30 04/02/25 Fluoxetine HCl (Fluoxetine HCl) 20 Mg Cap, 2 CAP PO QAM for 30 Days, #60 04/02/25 Apixaban Base (ELIQUIS) 5 Mg Tab, 1 TAB PO BID for 90 Days, #180 03/15/25 Ertugliflozin l-Pyroglutamic A (Steglatro) 5 Mg Tab, 1 TAB PO DAILY IN AM for 90 Days, #90 03/15/25 Quetiapine Fumerate (QUETIAPINE FUMARATE) 100 Mg Tab, 1 TAB PO HS for 30 Days, #30 03/15/25 Folic Acid (Folic Acid) 1 Mg Tab, 1 TAB PO DAILY for 90 Days, #90 03/15/25 Temazepam (Temazepam) 30 Mg Cap, 1 CAP PO HS for INSOMNIA for 30 Days, #30 03/15/25 Atorvastatin Calcium (ATORVASTATIN CALCIUM) 20 Mg Tab, 1.5 TAB PO DAILY for 90 Days, #135 30 MG PO IN THE MORNING 03/15/25 Losartan Potassium (Losartan Potassium) 50 Mg Tab, 1 TAB PO DAILY@BREAKFAST for 90 Days, #90 HOLD FOR BP < 110 OR HR <60 03/15/25 Information Source: Patient Mode of Arrival: EMS Timing: Days Duration: Since onset Prehospital treatment: None Quality: None Vomitus: Watery Stool: Normal Severity: Moderate Recent: None Recent Hx of: Diabetes Pain Location: Diffuse Modifying Factors: Nothing Associated sign and symptoms: Nausea, Vomiting, Abdominal Pain Past Medical History PAST MEDICAL HISTORY: CVA, DM, Liver, Schizophrenia Surgical History: AKA Family History Family History: Unknown Family History (Other): Patient is a poor historian Social History Smoker: Unknown Alcohol: Unknown Drugs: Unknown Lives In: Home Constitutional: denies: chills, diaphoresis, fatigue, fever, malaise, sweats, weakness, others EENTM: denies: blurred vision, double vision, ear bleeding, ear discharge, ear drainage, ear pain, ear ringing, eye pain, eye redness, hearing loss, mouth pain, mouth swelling, nasal discharge, nose bleeding, nose congestion, nose pain, photophobia, tearing, throat pain, throat swelling, voice changes, others Respiratory: denies: cough, hemoptysis, orthopnea, SOB at rest, shortness of breath, SOB with excertion, stridor, wheezing, others Cardiovascular: denies: chest pain, dizzy spells, diaphoresis, Dyspnea on exertion, edema, irregular heart beat, left arm pain, lightheadedness, palpitations, PND, syncope, others Gastrointestinal: reports: abdominal pain, nausea, vomiting; denies: abdomen distended, blood streaked bowels, constipated, diarrhea, dysphagia, difficulty swallowing, hematemesis, melena, poor appetite, poor fluid intake, rectal bleeding, rectal pain, others Genitourinary: denies: burning, dysuria, flank pain, frequency, hematuria, incontinence, penile discharge, penile sore, pain, testicle pain, testicle swelling, urgency, others Neurological: denies: dizziness, fainting, headache, left sided numbness, left sided weakness, numbness, paresthesia, pre-existing deficit, right sided numbness, right sided weakness, seizure, speech problems, tingling, tremors, weakness, others Musculoskeletal: denies: back pain, gout, joint pain, joint swelling, muscle pain, muscle stiffness, neck pain, others Integumetry: denies: bruises, change in color, change in hair/nails, dryness, laceration, lesions, lumps, rash, wounds, others Allergic/Immunocompromised: denies: Difficulty Healing, Frequent Infections, Hives, Itching, others Hematologic/Lymphatic: denies: anemia, blood clots, easy bleeding, easy bruising, swollen glands, others Endocrine: denies: excessive hunger, excessive sweating, excessive thirst, excessive urination, flushing, intolerance to cold, intolerance to heat, unexplained weight gain, unexplained weight loss, others Psychiatric: denies: anxiety, bipolar disorder, depression, hopeless, panic disorder, schizophrenia, sleepless, suicidal, others All Other Systems: Reviewed and Negative Physical Exam General Appearance: No Apparent Distress, Normal HEENT: Normal ENT Inspection, Pharynx Normal Neck: Full Range of Motion, Non-Tender, Normal, Normal Inspection Respiratory: Chest Non-Tender, Lungs Clear, No Accessory Muscle Use, No Respiratory Distress, Normal Breath Sounds Cardiovascular: No Edema, No Murmur, No Gallop, Normal Peripheral Pulses, Regular Rate/Rhythm Breast Exam: Deferred Gastrointestinal: Diffuse, No Organomegaly, No Pulsatile Mass, Normal Bowel Sounds, Soft, Tenderness Genitalia: Deferred Pelvic: Deferred Rectal: Deferred Extremities: No calf tenderness, Normal capillary refill, Normal inspection, Normal range of motion, Non-tender, No pedal edema Musculoskeletal : Apperance: Normal Neurologic: Alert, prescription clerk lenses II-XII nml as Tested, No Motor Deficits, Normal Affect, Normal Mood, No Sensory Deficits Cerebellar Function: Normal Reflexes: Normal Skin: Dry, Normal Color, Warm Lymphatic: No Adenopathy Was a procedure done? Was a procedure done?: No GI differential Dx Differential Diagnosis: Bowel Obstruction, Constipation, Diverticular disease, Gastritis/PUD, Gastroenteritis, Inflammatory BD, Bacterial, Viral X-Ray, Labs, Meds, VS Vital Signs Date Time Temp Pulse Resp B/P (MAP) Pulse Ox O2 Delivery O2 Flow Rate FiO2 09/02/25 17:00 103 13 145/74 (97) 99 09/02/25 16:00 97 20 152/74 (100) 100 09/02/25 15:00 91 14 100/53 (69) 99 09/02/25 14:00 96 17 144/71 (95) 96 09/02/25 13:06 98.5 102 15 144/75 (98) 100 98.5 09/02/25 12:30 Room Air* 0 21 09/02/25 11:15 98.4 92 18 118/72 98 98.4 Lab Test 09/02/25 16:45 09/02/25 15:38 09/02/25 13:34 09/02/25 13:08 Range/Units POC Glucose 250 H 297 H 70-106 mg/dl Sodium Level 138 136-145 mmol/L Potassium Level 4.7 3.5-5.1 mmol/L Chloride Level 100 98-107 mmol/L Carbon Dioxide Level 19 L 20-31 mmol/L Anion Gap 19 H 5-15 Blood Urea Nitrogen 16 9-23 mg/dL Creatinine 1.72 H 0.700-1.30 mg/dL Glomerular Filtration Rate Calc 45 >90 mL/min BUN/Creatinine Ratio 9.3 L 10.0-20.0 Serum Glucose 267 #H 74-106 mg/dL Calcium Level 8.4 L 8.7-10.4 mg/dL Urine Color Colorless Yellow Urine Clarity Clear Clear Urine pH 6.0 5.0-9.0 Urine Specific [place] 1.016 1.001-1.035 Urine Protein 1+ H Negative Urine Ketones 3+ H Negative Urine Blood Negative Negative /uL Urine Nitrite Negative Negative Urine Bilirubin Negative Negative Urine Urobilinogen Normal Negative mg/dL Urine Leukocyte Esterase Negative Negative /uL Urine RBC None seen 0 - 3 /hpf Urine Microscopic WBC 6 H 0-3 /HPF Urine Squamous Epithelial Cells Few <5 /hpf Urine Bacteria None seen None Seen /hpf Urine Glucose 4+ H Normal mg/dL Test 09/02/25 11:33 Range/Units White Blood Count 5.1 4.4-10.8 10^3/uL Red Blood Count 4.18 L 4.5-5.90 10^6/uL Hemoglobin 12.4 L 13.5-17.5 g/dL Hematocrit 37.1 L 41.0-53.0 % Mean Corpuscular Volume 88.7 80.0-100.0 fL Mean Corpuscular Hemoglobin 29.6 28.0-32.0 pg Mean Corpuscular Hemoglobin Concent 33.4 32.0-36.0 g/dL Red Cell Distribution Width 12.8 11.8-14.3 % Platelet Count 526 H 140-450 10^3/uL Mean Platelet Volume 7.5 6.9-10.8 fL Neutrophils (%) (Auto) 76.5 37.0-80.0 % Lymphocytes (%) (Auto) 16.4 10.0-50.0 % Monocytes (%) (Auto) 4.7 0.0-12.0 % Eosinophils (%) (Auto) 1.2 0.0-7.0 % Basophils (%) (Auto) 1.2 0.0-2.0 % Neutrophils # (Auto) 3.9 1.6-8.6 10 ^3/uL Lymphocytes # (Auto) 0.8 0.4-5.4 10 ^3/uL Monocytes # (Auto) 0.2 0-1.3 10 ^3/uL Eosinophils # (Auto) 0.1 0-0.8 10 ^3/uL Basophils # (Auto) 0.1 0-0.2 10 ^3/uL Nucleated Red Blood Cells 0.0 % Sodium Level 135 #L 136-145 mmol/L Potassium Level 5.3 H 3.5-5.1 mmol/L Chloride Level 99 98-107 mmol/L Carbon Dioxide Level 16 L 20-31 mmol/L Anion Gap 20 H 5-15 Blood Urea Nitrogen 18 9-23 mg/dL Creatinine 1.78 H 0.700-1.30 mg/dL Glomerular Filtration Rate Calc 43 >90 mL/min BUN/Creatinine Ratio 10.1 10.0-20.0 Serum Glucose 437 #*H 74-106 mg/dL Calcium Level 8.6 L 8.7-10.4 mg/dL Magnesium Level 1.9 1.6-2.6 mg/dL Total Bilirubin 0.3 0.2-1.0 mg/dL Aspartate Amino Transferase (AST) 14 13-40 U/L Alanine Aminotransferase (ALT) 17 7-40 U/L Alkaline Phosphatase 112 46-116 U/L Total Protein 6.6 5.7-8.2 g/dL Albumin 3.9 3.2-4.8 g/dL Lipase 32 12-53 U/L Beta-Hydroxybutyric Acid > 4.500 H < 0.4 mmol/L Current Medications Medications (Trade) Dose Ordered Sig/Niesha Route Start Time Stop Time Status Last Admin Sodium Chloride 1,000 ml @ 1,000 mls/hr Q1H ONCE IV 09/02/25 11:30 09/02/25 12:29 DC 09/02/25 12:17 Famotidine (Pepcid Injection) 20 mg ONCE ONCE IV 09/02/25 11:30 09/02/25 11:31 DC 09/02/25 12:21 Ondansetron HCl (Zofran) 4 mg ONCE ONCE IV 09/02/25 11:30 09/02/25 11:31 DC 09/02/25 12:21 Insulin Human Regular (InsuLIN R) 10 units ONCE ONCE IV 09/02/25 11:30 09/02/25 11:31 DC 09/02/25 12:34 Al Hydrox/Mg Hydrox/Simethicone (Maalox Plus) 30 ml ONCE ONCE PO 09/02/25 11:30 09/02/25 11:31 DC 09/02/25 12:21 Lidocaine HCl (Xylocaine 2% Viscous) 10 ml ONCE ONCE PO 09/02/25 11:30 09/02/25 11:31 DC 09/02/25 12:21 Sodium Chloride 1,000 ml @ 1,000 mls/hr Q1H ONCE IV 09/02/25 11:45 09/02/25 12:44 DC 09/02/25 11:[address] [address] Ph: [phone] DIAGNOSTIC IMAGING Diagnostic Imaging Report : [id number] Signed PATIENT: LISA BENITES ACCT: [id number] UNIT: [id number] : 1965 LOC: ER ROOM / BED: / AGE / SEX: 59 / M ADM STATUS: REG ER SERVICE 1133 ORDERING PHYSICIAN: ILEANA MARKS MD PROCEDURE(s): ABPLIV - CT AB PEL WITH IV CON ONLY REASON: diffuse abd pain/vomiting; prior surg; eval for SBO ORDER NUMBER(s): [id number], ACCESSION NUMBER(s): [id number] Exam: CT CT AB PEL WITH IV CON ONLY History: diffuse abd pain/vomiting; prior surg; eval for SBO COMPARISON: CT CT AB PEL WITH IV CON ONLY on DOS: 08/06/25, CT CT AB PEL WO CON- NO ORAL OR IV on DOS: 03/15/25 Technique: Multidetector spiral CT of the abdomen and pelvis was performed from lung bases to pubic symphysis. Intravenous contrast was administered during this examination. Portal venous imaging was obtained. Axial, coronal and sagittal multiplanar reformats were performed by the technologist on a separate workstation. Radiation Dose : 1. Abdomen/Pelvis: CTDIvol 14.31 mGy, DLP 904.49 mGy*cm. CONTRAST: Type of contrast: Omnipaque 300 Contrast injected: 1 ml Findings: Lung Bases: No acute or significant lung base finding. Normal heart size. No pleural or pericardial effusion. Liver: The liver is normal in size. No focal lesions. Normal hepatic vascular enhancement. Gallbladder and Biliary Tree: Unremarkable Spleen: Unremarkable Pancreas: The pancreas is normal in appearance without focal lesions or abnormal enhancement. Adrenal Glands: Unremarkable Kidneys: No hydronephrosis. Bladder: Unremarkable Bowel: The stomach is grossly normal in appearance. Small bowel and colon are normal in caliber and distribution. Normal appendix is visualized in the right lower quadrant without findings of appendicitis. Ascites: Absent Lymphadenopathy: No mesenteric, retroperitoneal or periportal lymphadenopathy. Abdominal Wall and Mesentery: Unremarkable. Vasculature: The visualized abdominal aorta is normal in size and caliber. Abdominal and pelvic vessels demonstrate normal enhancement. Pelvic Organs: Unremarkable Musculoskeletal: No aggressive focal bony lesions, acute fractures or dislocation. IMPRESSION: No acute abdominal or pelvic finding. Radiation optimization: All CT scans at this facility use at least one of these dose optimization techniques: automated exposure control mA and/or kV adjustment per patient size (includes targeted exams where dose is matched to clinical indication) or iterative reconstruction. ATED BY: PATO JUAREZ MD DICTATED DATE/TIME: 09/02/251324 SIGNED BY: PATO JUAREZ MD SIGNED DATE/TIME: 09/02/251324 CC: Time of 1ST Reevaluation: 12:00 Reevaluation 1ST: Unchanged Patient Education/Counseling: Diagnosis, Treatment Family Education/Counseling: No Family Present SEPSIS Sepsis Screen Date sepsis recognized/suspect: Sep 02, 2025 Time Sepsis recognized/suspect: 1103 Recent Procedure: No On Antibiotic Therapy: No Respiratory Rate >20: No Heart Rate >90: No Temp<36 C (96.8 F) or >38.3 C: No SBP <90 or MAP <65 mmHG: No New Acute Mental Status Change: No Is the patient on CPAP, BIPAP,: No Physician Orders Ct Ab Pel With Iv Con Only (09/02/25 11:33) Vital Signs Date Time Temp Pulse Resp B/P (MAP) Pulse Ox O2 Delivery O2 Flow Rate FiO2 09/02/25 17:00 103 13 145/74 (97) 99 09/02/25 16:00 97 20 152/74 (100) 100 09/02/25 15:00 91 14 100/53 (69) 99 09/02/25 14:00 96 17 144/71 (95) 96 09/02/25 13:06 98.5 102 15 144/75 (98) 100 98.5 09/02/25 12:30 Room Air* 0 21 09/02/25 11:15 98.4 92 18 118/72 98 98.4 Laboratory Tests Test 09/02/25 11:33 White Blood Count 5.1 10^3/uL (4.4-10.8) Medications Medications Dose Ordered Sig/Niesha Route Start Time Stop Time Status Last Admin Dose Admin Al Hydrox/Mg Hydrox/Simethicone 30 ml ONCE ONCE PO 09/02/25 11:30 09/02/25 11:31 DC 09/02/25 12:21 Famotidine 20 mg ONCE ONCE IV 09/02/25 11:30 09/02/25 11:31 DC 09/02/25 12:21 Insulin Human Regular 10 units ONCE ONCE IV 09/02/25 11:30 09/02/25 11:31 DC 09/02/25 12:34 Lidocaine HCl 10 ml ONCE ONCE PO 09/02/25 11:30 09/02/25 11:31 DC 09/02/25 12:21 Ondansetron HCl 4 mg ONCE ONCE IV 09/02/25 11:30 09/02/25 11:31 DC 09/02/25 12:21 Sodium Chloride 1,000 ml @ 1,000 mls/hr Q1H ONCE IV 09/02/25 11:30 09/02/25 12:29 DC 09/02/25 12:17 Sodium Chloride 1,000 ml @ 1,000 mls/hr Q1H ONCE IV 09/02/25 11:45 09/02/25 12:44 DC 09/02/25 11:45 Departure 1 Departure Time of Disposition: 15:00 (59 y/o M, with PMHx of DM, CVA, Liver cirrhosis, and schizophrenia presents to the ED for CC of abdominal pain, nausea, vomiting over the past several days. Patient arrives with critically high glucose in the setting of medication noncompliance. Initial metabolic panel shows low bicarb with positive ketones, normal pH, however, abnormalities within metabolic panel could be consistent with developing DKA. Patient was started on 2 L normal saline IV fluid bolus, given IV insulin. Patient was also given IV Pepcid, IV Zofran. Was also reporting a burning discomfort, was given oral Maalox and viscous lidocaine for discomfort. Given the patient's diffuse abdominal pain a CT of the abdomen and pelvis was performed which is negative for any acute int ra-abdominal process. Urinalysis with no signs to suggest urinary tract infection. Patient will be started on an insulin drip. Will be admitted for further management of uncontrolled diabetes, hyperglycemia.) Impression: Primary Impression: Abdominal pain Additional Impressions: Nausea and vomiting Uncontrolled diabetes mellitus with hyperglycemia Non compliance w medication regimen Disposition: ADMITTED INPATIENT Admit to: [facility] Condition: Stable Critical Care Note Critical Care Time?: Yes (35 min-critical care time only) Critical care comment: Patient with a critically high glucose, electrolyte abnormalities identified on labs, positive ketones, signs concerning for developing diabetic ketoacidosis. Requiring aggressive IV fluid hydration and IV insulin administration. Stability Stability form required: No Heart Score Heart Score: Heart Score Response (Comments) Value History N/A 0 EKG N/A 0 Age N/A 0 Risk Factors N/A 0 Troponin N/A 0 Total 0 I personally scribed for ILEANA MARKS MD ([email or web address]) on 09/02/25 at 11:39. Electronically submitted by Christa Shelton ([email or web address]). I personally scribed for ILEANA MARKS MD ([email or web address]) on 09/02/25 at 14:49. Electronically submitted by Christa Shelton ([email or web address]). ILEANA MARKS MD Sep 02, 2025 11:39
[2025-09-02] MEDS: SODIUM CHLORIDE 0.9% 1,000 ML IV ONE ×3 (11:45→20:00)
[2025-09-02 11:48] LABS: Hematocrit 37.1 % (41.0-53.0); Hemoglobin 12.4 g/dL (13.5-17.5); Mean Corpuscular Hemoglobin 29.6 pg (28.0-32.0); Mean Corpuscular Volume 88.7 fL (80.0-100.0); Nucleated Red Blood Cells % 0.0 %
[2025-09-02 12:01] LABS: Alanine Aminotransferase 17 U/L (7-40); Albumin 3.9 g/dL (3.2-4.8); Alkaline Phosphatase 112 U/L (46-116); Anion Gap 20 (5-15); BUN/Creatinine Ratio 10.1 (10.0-20.0); Blood Urea Nitrogen 18 mg/dL (9-23); Chloride 99 mmol/L (98-107); Lipase 32 U/L (12-53); Magnesium 1.9 mg/dL (1.6-2.6); Total Protein 6.6 g/dL (5.7-8.2)
[2025-09-02 12:04] LABS: Bilirubin, Total 0.3 mg/dL (0.2-1.0); Calcium 8.6 mg/dL (8.7-10.4); Carbon Dioxide 16 mmol/L (20-31); Potassium 5.3 mmol/L (3.5-5.1); Sodium 135 mmol/L (136-145)
[2025-09-02 12:06] LABS: Glucose 437 mg/dL (74-106)
[2025-09-02] MEDS: LIDOCAINE VISCOUS 2% 15ML UD PO ONE (12:21)
[2025-09-02] MEDS: MAALOX PLUS or MAALOX 30 ML PO ONE (12:21)
[2025-09-02] MEDS: FAMOTIDINE (10MG/ML) 2ML VL IV ONE (12:21)
[2025-09-02] MEDS: ONDANSETRON HCL 4 MG/2 ML VIAL IV ONE (12:21)
[2025-09-02] MEDS: InsuLIN REG 1unit/0.01ml Soln (100units/ml) IV ONE (12:34)
[2025-09-02] MEDS: IOHEXOL 300 MG/ML 100ML BOTTLE IJ ONE (12:39)
[2025-09-02 13:18] LABS: Urine Protein, UAD 1+ (Negative)
--- NOTE | 2025-09-02 13:27 | DVH ---
Exam: CT CT AB PEL WITH IV CON ONLY History: diffuse abd pain/vomiting; prior surg; eval for SBO COMPARISON: CT CT AB PEL WITH IV CON ONLY on DOS: 08/06/25, CT CT AB PEL WO CON- NO ORAL OR IV on DOS: 03/15/25 Technique: Multidetector spiral CT of the abdomen and pelvis was performed from lung bases to pubic symphysis. Intravenous contrast was administered during this examination. Portal venous imaging was obtained. Axial, coronal and sagittal multiplanar reformats were performed by the technologist on a separate workstation. Radiation Dose : 1. Abdomen/Pelvis: CTDIvol 14.31 mGy, DLP 904.49 mGy*cm. CONTRAST: Type of contrast: Omnipaque 300 Contrast injected: 1 ml Findings: Lung Bases: No acute or significant lung base finding. Normal heart size. No pleural or pericardial effusion. Liver: The liver is normal in size. No focal lesions. Normal hepatic vascular enhancement. Gallbladder and Biliary Tree: Unremarkable Spleen: Unremarkable Pancreas: The pancreas is normal in appearance without focal lesions or abnormal enhancement. Adrenal Glands: Unremarkable Kidneys: No hydronephrosis. Bladder: Unremarkable Bowel: The stomach is grossly normal in appearance. Small bowel and colon are normal in caliber and distribution. Normal appendix is visualized in the right lower quadrant without findings of appendicitis. Ascites: Absent Lymphadenopathy: No mesenteric, retroperitoneal or periportal lymphadenopathy. Abdominal Wall and Mesentery: Unremarkable. Vasculature: The visualized abdominal aorta is normal in size and caliber. Abdominal and pelvic vessels demonstrate normal enhancement. Pelvic Organs: Unremarkable Musculoskeletal: No aggressive focal bony lesions, acute fractures or dislocation. IMPRESSION: No acute abdominal or pelvic finding. Radiation optimization: All CT scans at this facility use at least one of these dose optimization techniques: automated exposure control mA and/or kV adjustment per patient size (includes targeted exams where dose is matched to clinical indication) or iterative reconstruction.
[2025-09-02 16:00] LABS: Chloride 100 mmol/L (98-107); Potassium 4.7 mmol/L (3.5-5.1); Sodium 138 mmol/L (136-145)
[2025-09-02 16:01] LABS: Anion Gap 19 (5-15)
[2025-09-02 16:02] LABS: Calcium 8.4 mg/dL (8.7-10.4); Carbon Dioxide 19 mmol/L (20-31)
[2025-09-02 16:06] LABS: BUN/Creatinine Ratio 9.3 (10.0-20.0); Blood Urea Nitrogen 16 mg/dL (9-23)
[2025-09-02 16:07] LABS: Glucose 267 mg/dL (74-106)
[2025-09-02 17:42] LABS: Base Excess -9.4 mmol/L (-2.0-3.0)
[2025-09-02] MEDS ORDERED: DEXTROSE (50%) 50ML SYRG IV PRN (18:00)
[2025-09-02] MEDS: ACCU-CHEK COMFORT CURVE STRIP VI SCH (18:00)
[2025-09-02] MEDS ORDERED: ONDANSETRON HCL 4 MG/2 ML VIAL IV PRN (18:00)
--- NOTE | 2025-09-02 18:51 | DVHHPRES ---
History of Present Illness Resident Creating Document: DIDIERСЕРГЕЙCHI RESIDENT History of Present Illness HPI Patient is a 59-year-old male with a medical history of hypertension, bipolar disorder/schizophrenia, uncontrolled type 2 diabetes mellitus, CKD, ?CVA presented to the hospital with a chief complaint of intractable nausea vomiting and abdominal pain for the last 5 days. Patient reported he has not been able to keep anything down the last 5 days and has had vomiting every time he tries to eat something associated with diffuse abdominal pain and also complained of oropharyngeal dysphagia. Patient denied any fever, chills, diarrhea. Mother reports that the patient's blood glucose has been running high 400-600 and they increase the insulin but still his blood sugar was not going down. On arrival to the ER patient was seen to have elevated anion gap with a decreased serum bicarbonate, elevated beta hydroxybutyrate and 3+ urine ketones. CT abdomen pelvis with IV contrast did not show any acute abdominopelvic abnormality, moderate stool burden was seen. Past medical history: As per HPI Past surgical history: Right above-knee amputation Social history: Patient denies current smoking, alcohol, drug use and lives with mother Home medications: Temazepam 30 mg at night, fluoxetine 40 mg daily, aspirin 81 mg daily, metoprolol 50 b.i.d., losartan 50 daily ( mother reports recently she has not been giving him antihypertensive medication because his blood pressure has been within normal limits) Medication which needs to be taken care of: Patient reports to be taking olanzapine 2.5 mg and quetiapine 100 mg at night, patient is on Eliquis 5 mg daily but do not know why is he taking that( no imaging evidence of DVT/PE or AFib in previous hospitalization) Review of Systems Review of Systems Patient reports mild abdominal discomfort Denies any nausea, vomiting at present Reports mild discomfort in the back of the throat when he eats Allergies: Coded Allergies: Egg Solids, Whole (Verified Allergy, Intermediate, VOMITING, 08/08/25) Medications Current Medications Medications Dose Ordered Sig/Niesha Route Start Time Stop Time Status Last Admin Dose Admin Insulin Human (Reg)/Sodium Chloride 100 ml @ 0.5 mls/hr Q24H IV 09/02/25 18:00 Dextrose 50 ml UD PRN IV 09/02/25 18:00 Diagnostic Test (Pha) 1 strip Q90MIN 09/02/25 18:00 Ondansetron HCl 4 mg Q6HPRN PRN IV 09/02/25 18:00 Pantoprazole Sodium 40 mg DAILY IV 09/03/25 10:00 Quetiapine Fumarate 100 mg HS PO 09/02/25 22:00 Temazepam 30 mg HSPRN PRN PO 09/02/25 18:00 Fluoxetine HCl 40 mg DAILY PO 09/03/25 10:00 Exam Vital Signs Vital Signs Date Time Temp Pulse Resp B/P (MAP) Pulse Ox O2 Delivery O2 Flow Rate FiO2 09/02/25 17:00 103 13 145/74 (97) 99 09/02/25 13:06 98.5 98.5 09/02/25 12:30 Room Air* 0 21 Exam Gen - no pallor, no icterus, no cyanosis Skin - Patients skin is warm and dry. HEENT - normocephalic, atraumatic, moist mucous membranes. Neck - full ROM, no LAD, no JVD Pulmonary - B/L clear breath sounds without any rales or wheezing cardiovascular - regular S1,S2 heard, no added sounds, no murmurs heard. GI - soft abdomen with minimal discomfort to deep palpation diffusely. no hepatospleenomegaly. Bowel sounds normoactive Neurological - Patient is A/O X 4 . Bilateral upper extremity strength 5/5, right lower extremity above-knee amputation, no facial droop, normal speech, no tremor, no sensory deficiets. Labs/Xrays Labs Test 09/02/25 17:36 09/02/25 16:45 09/02/25 15:38 09/02/25 13:08 Range/Units Blood Gas Specimen Type Arterial Blood Gas Sample Site Right brachial Blood Gas Patient Temperature 37.0 Arterial Blood Date Drawn [id number] Arterial Blood pH 7.351 7.350-7.450 Arterial Blood Partial Pressure CO2 27.0 L 35.0-48.0 mmHg Arterial Blood Partial Pressure O2 86.5 83.0-108.0 mmHg Arterial Blood HCO3 14.6 L 21.0-28.0 mmol/L Arterial Blood Oxygen Saturation 96.1 94.0-98.0 % Arterial Blood Base Excess -9.4 L -2.0-3.0 mmol/L Arterial Blood Oxyhemoglobin 95.1 94.0-98.0 % Arterial Blood Carboxyhemoglobin 0.6 0.5-1.5 % Arterial Blood Methemoglobin 0.4 0.0-1.5 % Carmelo Test N/a Blood Gas Total Hemoglobin 12.50 L 13.5-17.5 g/dL Blood Gas Modality Room air FiO2 % 21.0 POC Glucose 250 H 70-106 mg/dl Sodium Level 138 136-145 mmol/L Potassium Level 4.7 3.5-5.1 mmol/L Chloride Level 100 98-107 mmol/L Carbon Dioxide Level 19 L 20-31 mmol/L Anion Gap 19 H 5-15 Blood Urea Nitrogen 16 9-23 mg/dL Creatinine 1.72 H 0.700-1.30 mg/dL Glomerular Filtration Rate Calc 45 >90 mL/min BUN/Creatinine Ratio 9.3 L 10.0-20.0 Serum Glucose 267 #H 74-106 mg/dL Calcium Level 8.4 L 8.7-10.4 mg/dL Urine Color Colorless Yellow Urine Clarity Clear Clear Urine pH 6.0 5.0-9.0 Urine Specific [place] 1.016 1.001-1.035 Urine Protein 1+ H Negative Urine Ketones 3+ H Negative Urine Blood Negative Negative /uL Urine Nitrite Negative Negative Urine Bilirubin Negative Negative Urine Urobilinogen Normal Negative mg/dL Urine Leukocyte Esterase Negative Negative /uL Urine RBC None seen 0 - 3 /hpf Urine Microscopic WBC 6 H 0-3 /HPF Urine Squamous Epithelial Cells Few <5 /hpf Urine Bacteria None seen None Seen /hpf Urine Glucose 4+ H Normal mg/dL Test 09/02/25 11:33 Range/Units White Blood Count 5.1 4.4-10.8 10^3/uL Red Blood Count 4.18 L 4.5-5.90 10^6/uL Hemoglobin 12.4 L 13.5-17.5 g/dL Hematocrit 37.1 L 41.0-53.0 % Mean Corpuscular Volume 88.7 80.0-100.0 fL Mean Corpuscular Hemoglobin 29.6 28.0-32.0 pg Mean Corpuscular Hemoglobin Concent 33.4 32.0-36.0 g/dL Red Cell Distribution Width 12.8 11.8-14.3 % Platelet Count 526 H 140-450 10^3/uL Mean Platelet Volume 7.5 6.9-10.8 fL Neutrophils (%) (Auto) 76.5 37.0-80.0 % Lymphocytes (%) (Auto) 16.4 10.0-50.0 % Monocytes (%) (Auto) 4.7 0.0-12.0 % Eosinophils (%) (Auto) 1.2 0.0-7.0 % Basophils (%) (Auto) 1.2 0.0-2.0 % Neutrophils # (Auto) 3.9 1.6-8.6 10 ^3/uL Lymphocytes # (Auto) 0.8 0.4-5.4 10 ^3/uL Monocytes # (Auto) 0.2 0-1.3 10 ^3/uL Eosinophils # (Auto) 0.1 0-0.8 10 ^3/uL Basophils # (Auto) 0.1 0-0.2 10 ^3/uL Nucleated Red Blood Cells 0.0 % Magnesium Level 1.9 1.6-2.6 mg/dL Total Bilirubin 0.3 0.2-1.0 mg/dL Aspartate Amino Transferase (AST) 14 13-40 U/L Alanine Aminotransferase (ALT) 17 7-40 U/L Alkaline Phosphatase 112 46-116 U/L Total Protein 6.6 5.7-8.2 g/dL Albumin 3.9 3.2-4.8 g/dL Lipase 32 12-53 U/L Beta-Hydroxybutyric Acid > 4.500 H < 0.4 mmol/L SEPSIS Sepsis Screen Date sepsis recognized/suspect: Sep 02, 2025 Time Sepsis recognized/suspect: 1230 Recent Procedure: No On Antibiotic Therapy: No Respiratory Rate >20: No Heart Rate >90: No Temp<36 C (96.8 F) or >38.3 C: No SBP <90 or MAP <65 mmHG: No New Acute Mental Status Change: No Is the patient on CPAP, BIPAP,: No Physician Orders Ct Ab Pel With Iv Con Only (09/02/25 11:33) Admit (09/02/25 17:07) Oxygen By Nasal Cannula (09/02/25 17:07) Stat Ekg For Chest Pain (09/02/25 17:07) Notify Of Changes From Base (09/02/25 17:07) Armature Coil Winder For 24 Hours (09/02/25 17:07) Emergency Dysrhythmia Protocol (09/02/25 17:07) Abg W/ Co-Ox (09/02/25 17:07) Insulin Drip Protocol (09/02/25 ) Insulin Drip 100 Unit/100ml (Myxredlin 1 (09/02/25 18:00) Dextrose 50% Syringe (09/02/25 18:00) Glucose Blood (Accu-Chek Comfort Curve T (09/02/25 18:00) Basic Metabolic Panel (09/02/25 17:47) Phosphorus (09/02/25 17:47) Magnesium (09/02/25 17:47) Osmolality, Serum (09/02/25 17:47) Basic Metabolic Panel (09/02/25 23:47) Basic Metabolic Panel (09/03/25 05:47) Basic Metabolic Panel (09/03/25 11:47) Urinalysis (09/02/25 17:47) Transfer Orders (09/02/25 17:47) Ondansetron Hcl (Zofran) (09/02/25 18:00) Pantoprazole (Protonix) (09/03/25 10:00) Complete Blood Count (09/03/25 04:00) D5w/Sod Chl 0.45% (D5w 1/2ns) (09/02/25 18:00) Sodium Chloride 0.9% (09/02/25 18:00) Quetiapine Fumarate Tablet (Seroquel Tab (09/02/25 22:00) Temazepam (Restoril) (09/02/25 18:00) Fluoxetine Capsule (Prozac Capsule) (09/03/25 10:00) Npo Except For Medications (09/02/25 17:56) Npo (Nothing By Mouth) Diet (09/02/25 Dinner) Vital Signs Date Time Temp Pulse Resp B/P (MAP) Pulse Ox O2 Delivery O2 Flow Rate FiO2 09/02/25 17:00 103 13 145/74 (97) 99 09/02/25 16:00 97 20 152/74 (100) 100 09/02/25 15:00 91 14 100/53 (69) 99 09/02/25 14:00 96 17 144/71 (95) 96 09/02/25 13:06 98.5 102 15 144/75 (98) 100 98.5 09/02/25 12:30 Room Air* 0 21 09/02/25 11:15 98.4 92 18 118/72 98 98.4 Laboratory Tests Test 09/02/25 11:33 White Blood Count 5.1 10^3/uL (4.4-10.8) Medications Medications Dose Ordered Sig/Niesha Route Start Time Stop Time Status Last Admin Dose Admin Al Hydrox/Mg Hydrox/Simethicone 30 ml ONCE ONCE PO 09/02/25 11:30 09/02/25 11:31 DC 09/02/25 12:21 30 ML Famotidine 20 mg ONCE ONCE IV 09/02/25 11:30 09/02/25 11:31 DC 09/02/25 12:21 20 MG Insulin Human Regular 10 units ONCE ONCE IV 09/02/25 11:30 09/02/25 11:31 DC 09/02/25 12:34 10 UNITS Lidocaine HCl 10 ml ONCE ONCE PO 09/02/25 11:30 09/02/25 11:31 DC 09/02/25 12:21 10 ML Ondansetron HCl 4 mg ONCE ONCE IV 09/02/25 11:30 09/02/25 11:31 DC 09/02/25 12:21 4 MG Sodium Chloride 1,000 ml @ 1,000 mls/hr Q1H ONCE IV 09/02/25 11:30 09/02/25 12:29 DC 09/02/25 12:17 1,000 MLS/HR Sodium Chloride 1,000 ml @ 1,000 mls/hr Q1H ONCE IV 09/02/25 11:45 09/02/25 12:44 DC 09/02/25 11:45 1,000 MLS/HR Assessment/Plan Assessment/Plan Mild DKA ?Starvation ketosis Uncontrolled type 2 diabetes mellitus with hyperglycemia - insulin drip protocol - BNP q.6 hours, if anion gap closes on 2 consecutive BMP and bicarb of 18, transition to subcutaneous insulin - if blood glucose less than 250, started on D5 half NS - keep potassium above 4 - NPO except medications, when transitioned to subcutaneous insulin allow clear liquids ELVIS on CKD likely prerenal due to VMN CKD likely due to diabetic nephropathy - IV fluids - monitor electrolytes History of bipolar disorder History of schizophrenia - continue on fluoxetine 40 mg daily - quetiapine 100 mg at bedtime - temazepam 30 mg hs as needed for insomnia PUD prophylaxis: Protonix DVT prophylaxis: Enoxaparin Goals of care discussed with the patient and his mother for over 21 minutes Code status: Full code Time spent: 44 mins Plan discussed with Dr. Guadarrama Plan discussed with: Patient, Other (Mother, RN Jayne) My Orders Orders - CASSIA VELÁSQUEZ RESIDENT Procedure Category Date Status Time Admit ADMIT 09/02/25 Transmitted 17:07 Oxygen By Nasal RT 09/02/25 Transmitted Cannula 17:07 Stat Ekg For Chest ARTUR 09/02/25 In Process Pain 17:07 Notify Md Of Changes ARTUR 09/02/25 In Process From Base 17:07 Armature Coil Winder For ARTUR 09/02/25 In Process 24 Hours 17:07 Emergency Dysrhythmia ARTUR 09/02/25 In Process Protocol 17:07 Abg W/ Co-Ox RT 09/02/25 Logged 17:07 Insulin Drip Protocol ARTUR 09/02/25 In Process Insulin Drip 100 PHA 09/02/25 In Process Unit/100ml (Myxredlin 18:00 Dextrose 50% Syringe PHA 09/02/25 In Process 18:00 Glucose Blood PHA 09/02/25 In Process (Accu-Chek Comfort 18:00 Basic Metabolic Panel LAB 09/02/25 Logged 17:47 Phosphorus LAB 09/02/25 Logged 17:47 Magnesium LAB 09/02/25 Logged 17:47 Osmolality, Serum LAB 09/02/25 Logged 17:47 Basic Metabolic Panel LAB 09/02/25 Logged 23:47 Basic Metabolic Panel LAB 09/03/25 Verified 05:47 Basic Metabolic Panel LAB 09/03/25 Verified 11:47 Urinalysis LAB 09/02/25 Logged 17:47 Transfer Orders XFER 09/02/25 Transmitted 17:47 Ondansetron Hcl PHA 09/02/25 In Process (Zofran) 18:00 Pantoprazole PHA 09/03/25 In Process (Protonix) 10:00 Complete Blood Count LAB 09/03/25 Verified 04:00 D5w/Sod Chl 0.45% PHA 09/02/25 In Process (D5w 1/2ns) 18:00 Sodium Chloride 0.9% PHA 09/02/25 In Process 18:00 Quetiapine Fumarate PHA 09/02/25 In Process Tablet (Seroquel Tab 22:00 Temazepam (Restoril) PHA 09/02/25 In Process 18:00 Fluoxetine Capsule PHA 09/03/25 In Process (Prozac Capsule) 10:00 Npo Except For ARTUR 09/02/25 In Process Medications 17:56 Npo (Nothing By DIET 09/02/25 Transmitted Mouth) Diet Dinner Date of Service: Sep 02, 2025 Billing Provider: EMERSON GUADARRAMA MD Common Visit Codes: [id number] CARE 30-74 MIN CASSIA VELÁSQUEZ RESIDENT Sep 02, 2025 18:50 EMERSON GUADARRAMA MD Sep 02, 2025 19:05
[2025-09-02 19:00] VITALS: BP 130/73; PULSE 98; RESP 20; O2SAT 100
[2025-09-02 19:08] LABS: Chloride 101 mmol/L (98-107); Potassium 4.7 mmol/L (3.5-5.1); Sodium 138 mmol/L (136-145)
[2025-09-02 19:09] LABS: Anion Gap 21 (5-15)
[2025-09-02 19:14] LABS: BUN/Creatinine Ratio 9.6 (10.0-20.0); Blood Urea Nitrogen 16 mg/dL (9-23)
[2025-09-02 19:15] LABS: Magnesium 1.9 mg/dL (1.6-2.6)
[2025-09-02 19:33] LABS: Calcium 8.5 mg/dL (8.7-10.4); Carbon Dioxide 16 mmol/L (20-31); Glucose 264 mg/dL (74-106)
[2025-09-02 20:00] VITALS: BP 129/72; PULSE 95; RESP 11; TEMP 98.6; O2SAT 100
[2025-09-02] MEDS: INSULIN DRIP 100 UNIT/100ML 100 ML IV SCH (20:03)
[2025-09-02] MEDS: TEMAZEPAM 15 MG CAP PO PRN (20:14)
[2025-09-02 21:00] VITALS: BP 100/66; PULSE 104; RESP 14; O2SAT 98
[2025-09-02 22:00] VITALS: BP 112/68; PULSE 98; RESP 11; O2SAT 98
[2025-09-02] MEDS: D5W/SOD CHL 0.45% 1,000 ML IV ONE (22:08)
[2025-09-02 22:57] VITALS: BP 125/71; PULSE 92; RESP 11; RESP 15; TEMP 98.6; O2SAT 98; O2SAT 99
[2025-09-02 23:00] VITALS: BP 90/69; PULSE 88; RESP 13; O2SAT 95
[2025-09-03] VITALS (12 sets, daily range): BP systolic 83–141; BP diastolic 47–86; PULSE 78–122; RESP 11–18; TEMP 97.6–99.5; O2SAT 91–99
[2025-09-03 00:24] LABS: Chloride 106 mmol/L (98-107); Potassium 3.9 mmol/L (3.5-5.1); Sodium 141 mmol/L (136-145)
[2025-09-03 00:25] LABS: Anion Gap 13 (5-15); Carbon Dioxide 22 mmol/L (20-31)
[2025-09-03 00:30] LABS: BUN/Creatinine Ratio 7.2 (10.0-20.0); Blood Urea Nitrogen 11 mg/dL (9-23)
[2025-09-03 01:05] LABS: Calcium 8.2 mg/dL (8.7-10.4); Glucose 169 mg/dL (74-106)
[2025-09-03 06:49] LABS: Hematocrit 34.9 % (41.0-53.0); Hemoglobin 11.8 g/dL (13.5-17.5); Nucleated Red Blood Cells % 0.0 %
[2025-09-03 06:50] LABS: Mean Corpuscular Hemoglobin 29.6 pg (28.0-32.0); Mean Corpuscular Volume 87.3 fL (80.0-100.0)
[2025-09-03 06:51] LABS: Chloride 106 mmol/L (98-107); Potassium 3.8 mmol/L (3.5-5.1); Sodium 140 mmol/L (136-145)
[2025-09-03 06:52] LABS: Anion Gap 12 (5-15); Carbon Dioxide 22 mmol/L (20-31)
[2025-09-03 06:57] LABS: BUN/Creatinine Ratio 7.3 (10.0-20.0); Blood Urea Nitrogen 11 mg/dL (9-23)
[2025-09-03 07:03] LABS: Calcium 8.5 mg/dL (8.7-10.4); Glucose 169 mg/dL (74-106)
[2025-09-03] MEDS ORDERED: DEXTROSE (50%) 50ML SYRG IV PRN (08:30)
[2025-09-03] MEDS: INSULIN LANTUS (GLARGINE) 1 /0.01ml (100units/ml) SC ONE ×2 (09:16)
[2025-09-03] MEDS: D5W/SOD CHL 0.45% 1,000 ML IV ONE (09:17)
[2025-09-03] MEDS: PANTOPRAZOLE 40 MG/10 ML VIAL INJ IV SCH (10:28)
[2025-09-03] MEDS: ENOXAPARIN SOD 40 MG/0.4 ML SYRINGE SC SCH (10:28)
[2025-09-03] MEDS: ACCU-CHEK COMFORT CURVE STRIP VI SCH (11:09)
[2025-09-03 11:56] LABS: Chloride 106 mmol/L (98-107); Potassium 4.5 mmol/L (3.5-5.1); Sodium 141 mmol/L (136-145)
[2025-09-03 11:57] LABS: Anion Gap 13 (5-15); Carbon Dioxide 22 mmol/L (20-31)
[2025-09-03 11:58] LABS: Calcium 8.8 mg/dL (8.7-10.4)
[2025-09-03 12:02] LABS: BUN/Creatinine Ratio 8.5 (10.0-20.0); Blood Urea Nitrogen 12 mg/dL (9-23)
[2025-09-03 12:03] LABS: Glucose 186 mg/dL (74-106)
[2025-09-03] MEDS: SOD CHL 0.45% 1,000 ML IV SCH (13:30)
[2025-09-03] MEDS: InsuLIN REG 1unit/0.01ml Soln (100units/ml) SC SCH (16:49)
--- NOTE | 2025-09-03 19:16 | DVHPNRES ---
Progress Note Date Seen: Sep 03, 2025 Resident Creating Document: MYLES LAWS RESIDENT Medical Necessity Reason Pt with a Central, PICC or Fol: No Subjective Review of Systems Aaron Del Angel is a 59-year old male with past medical history of hypertension, uncontrolled type 2 diabetes mellitus, CKD, ? Bipolar disorder/schizophrenia who presented to the hospital with a chief complaint of intractable nausea, vomiting and abdominal pain for the last 5 days. The patient mentioned he started having nausea and multiple episodes of nonbilious, nonbloody vomiting since 5 days and was not able to keep anything down. He also mentioned he had intense abdominal pain, rated as 8/10 in intensity, all over the abdomen. He mentioned that his blood glucose level was fluctuating would sometimes go to a high of 600, even on increasing the insulin at home. On arrival to the ED patient was found to have an elevated anion gap with a decreased serum bicarbonate, elevated beta hydroxybutyrate and 3+ urine ketones. CT abdomen pelvis with IV contrast did not show any acute abdominopelvic abnormality. He was started on insulin drip on arrival to the hospital. This morning his blood glucose level was 169, insulin drip was discontinued and he was started on Lantus 10 units b.i.d. and insulin sliding scale. Past medical history:hypertension, uncontrolled type 2 diabetes mellitus, CKD, ? Bipolar disorder/schizophrenia Past surgical history: Right above knee amputation (? Diabetic foot infection) Social & Personal history: Lives at home with family, denies current smoking, alcohol or drug use Allergies: Egg solids, whole Patient seen and examined at bedside. Patient is alert and oriented to time, place person and responding to all questions. Eyes: No Pain, No Vision change, No Conjunctivae inflammation, No Eyelid inflammation, No Redness ENT: No Ear pain, No Ear discharge, No Nose pain, No Nose discharge, No Nose congestion, No Mouth pain, No Mouth swelling, No Throat pain, No Throat swelling Cardiovascular: No Chest Pain, No Palpitations, No Orthopnea, No Paroxysmal No Dyspnea, No Edema, No Lt Headedness Respiratory: No Cough, No Dry, No Shortness of breath, No SOB with exertion, No Wheezing, No Hemoptysis, No Pleuritic Pain, No Sputum Gastrointestinal: No Nausea, No Vomiting, mild Abdominal Pain, No Diarrhea, No Constipation, No Melena, No Hematochezia Genitourinary: No Dysuria, No Frequency, No Incontinence, No Hematuria, No Retention Objective vital signs Vital Sign Date Time Temp Pulse Resp B/P (MAP) Pulse Ox O2 Delivery O2 Flow Rate FiO2 09/03/25 17:11 97.8 112 18 138/85 (102) 99 97.8 09/03/25 17:10 Room Air* 0 21 Total Intake and Output 09/02/25 09/02/25 09/03/25 15:00 23:00 07:00 Intake Total 306 ml 620.5 ml Output Total 825 ml Balance 306 ml -204.5 ml medications Current Medications Medications Dose Ordered Sig/Niesha Route Start Time Stop Time Status Last Admin Dose Admin Ondansetron HCl 4 mg Q6HPRN PRN IV 09/02/25 18:00 Pantoprazole Sodium 40 mg DAILY IV 09/03/25 10:00 09/03/25 10:28 40 MG Quetiapine Fumarate 100 mg HS PO 09/02/25 22:00 09/02/25 22:08 100 MG Temazepam 30 mg HSPRN PRN PO 09/02/25 18:00 09/02/25 20:14 30 MG Fluoxetine HCl 40 mg DAILY PO 09/03/25 10:00 09/03/25 10:28 40 MG Enoxaparin Sodium 40 mg DAILY SC 09/03/25 10:00 09/03/25 10:28 40 MG Insulin Glargine 10 units BID@0700,2200 [place] 09/03/25 22:00 Future hold Diagnostic Test (Pha) 1 strip ACHS 09/03/25 11:30 09/03/25 16:49 1 STRIP Insulin Human Regular ACHS SC 09/03/25 11:30 09/03/25 16:49 6 UNITS Dextrose 50 ml UD PRN IV 09/03/25 08:30 Sodium Chloride 1,000 ml @ 100 mls/hr Q10H IV 09/03/25 13:15 09/03/25 23:59 09/03/25 13:30 100 MLS/HR Examination General Appearance: Cooperative. Well developed. Well nourished. NAD Head Exam: Normal inspection Neck Exam: Normal inspection. Non-tender. Normal alignment Pulmonary/Respiratory: Chest non-tender. Clear bilateral breath sounds, no crackles, no wheezing. Cardiovascular/Chest: Regular rate and rhythm. No murmurs. No JVD. Peripheral Pulses: 2+ Radial (R). 2+ Radial (L). 2+ Pedal (R). 2+ Pedal (L) Abdominal Exam: Normal bowel sounds. Soft. normal abdomen, no visible veins, mild tenderness in all 4 quadrants, No hepatospenomegaly. No masses Ankle Exam: Negative ankle edema Lower extremities: Negative lower extremity edema Neuro/Mental Status: A&O x4. Coherent., upper extremity strength 5/5 bilateral, right above the knee amputation, wound on left heel Thoughts/Psych: Normal thought pattern. Appropriate mood and affect. Good judgement and insight Skin Exam: Normal inspection. Normal color. Warm. Dry laboratory and microbiology Laboratory Tests 09/03/25 11:42 09/03/25 06:07 Test 09/03/25 11:42 Range/Units Serum Glucose 186 H 74-106 mg/dL Labs and/or images reviewed: Labs reviewed by me, Image(s) reviewed by me Problem List/Assessment/Plan Problem List/Assessment/Plan Mild DKA ?Starvation ketosis Uncontrolled type 2 diabetes mellitus with hyperglycemia - insulin drip discontinued, started on insulin Lantus 10 units b.i.d. and sliding scale insulin - started on NS 100 mL/hour - HbA1c> 14 - started on consistent carb diet ELVIS on CKD, likely prerenal due to VMN CKD stage 3, likely due to diabetic nephropathy - IV fluids - monitor electrolytes - avoid nephrotoxic agents History of bipolar disorder History of schizophrenia - continue on fluoxetine 40 mg daily - quetiapine 100 mg at bedtime - temazepam 30 mg hs as needed for insomnia PUD prophylaxis: Protonix DVT prophylaxis: Enoxaparin Goals of care discussed with the patient and his mother for over 21 minutes Code status: Full code Plan discussed with Dr. Guadarrama Plan discussed with: Patient, Other Date of Service: Sep 03, 2025 Billing Provider: EMERSON GUADARRAMA MD Common Visit Codes: [id number] INP/OBS CARE(HIGH) MYLES LAWS RESIDENT Sep 03, 2025 19:16 EMERSON GUADARRAMA MD Sep 03, 2025 22:27
[2025-09-03] MEDS: INSULIN LANTUS (GLARGINE) 1 /0.01ml (100units/ml) SC SCH (21:14)
[2025-09-04] VITALS (9 sets, daily range): BP systolic 93–125; BP diastolic 56–77; PULSE 88–109; RESP 16–20; TEMP 97.5–98.4; O2SAT 96–100
[2025-09-04 07:02] LABS: Anion Gap 13 (5-15); Carbon Dioxide 22 mmol/L (20-31); Chloride 104 mmol/L (98-107); Potassium 3.7 mmol/L (3.5-5.1); Sodium 139 mmol/L (136-145)
[2025-09-04 07:03] LABS: Hematocrit 32.5 % (41.0-53.0); Hemoglobin 11.2 g/dL (13.5-17.5); Nucleated Red Blood Cells % 0.1 %
[2025-09-04 07:06] LABS: Mean Corpuscular Hemoglobin 29.8 pg (28.0-32.0); Mean Corpuscular Volume 86.5 fL (80.0-100.0)
[2025-09-04 07:09] LABS: BUN/Creatinine Ratio 10.4 (10.0-20.0); Blood Urea Nitrogen 15 mg/dL (9-23)
[2025-09-04 07:11] LABS: Calcium 8.3 mg/dL (8.7-10.4); Glucose 162 mg/dL (74-106)
--- NOTE | 2025-09-04 19:42 | DVHPNRES ---
Progress Note Date Seen: Sep 04, 2025 Resident Creating Document: MYLES LAWS RESIDENT Medical Necessity Reason Pt with a Central, PICC or Fol: No Subjective Review of Systems Aaron Del Angel is a 59-year old male with past medical history of hypertension, uncontrolled type 2 diabetes mellitus, CKD, ? Bipolar disorder/schizophrenia who presented to the hospital with a chief complaint of intractable nausea, vomiting and abdominal pain for the last 5 days. The patient mentioned he started having nausea and multiple episodes of nonbilious, nonbloody vomiting since 5 days and was not able to keep anything down. He also mentioned he had intense abdominal pain, rated as 8/10 in intensity, all over the abdomen. He mentioned that his blood glucose level was fluctuating would sometimes go to a high of 600, even on increasing the insulin at home. On arrival to the ED patient was found to have an elevated anion gap with a decreased serum bicarbonate, elevated beta hydroxybutyrate and 3+ urine ketones. CT abdomen pelvis with IV contrast did not show any acute abdominopelvic abnormality. He was started on insulin drip on arrival to the hospital. This morning his blood glucose level was 169, insulin drip was discontinued and he was started on Lantus 10 units b.i.d. and insulin sliding scale. Past medical history:hypertension, uncontrolled type 2 diabetes mellitus, CKD, ? Bipolar disorder/schizophrenia Past surgical history: Right above knee amputation (? Diabetic foot infection) Social & Personal history: Lives at home with family, denies current smoking, alcohol or drug use Allergies: Egg solids, whole Patient seen and examined at bedside. Patient is alert and oriented to time, place person and responding to all questions. Eyes: No Pain, No Vision change, No Conjunctivae inflammation, No Eyelid inflammation, No Redness ENT: No Ear pain, No Ear discharge, No Nose pain, No Nose discharge, No Nose congestion, No Mouth pain, No Mouth swelling, No Throat pain, No Throat swelling Cardiovascular: No Chest Pain, No Palpitations, No Orthopnea, No Paroxysmal No Dyspnea, No Edema, No Lt Headedness Respiratory: No Cough, No Dry, No Shortness of breath, No SOB with exertion, No Wheezing, No Hemoptysis, No Pleuritic Pain, No Sputum Gastrointestinal: No Nausea, No Vomiting, mild Abdominal Pain, No Diarrhea, No Constipation, No Melena, No Hematochezia Genitourinary: No Dysuria, No Frequency, No Incontinence, No Hematuria, No Retention 09/04/25- patient was seen at bedside today. Patient states feeling much better. He no longer complains of nausea, vomiting or abdominal pain. Blood glucose in the morning today was 162. In creatinine today was 1.44, so he was started on half NS at 125 mL/hour. rn patient services consult for arranging wheelchair and transport home was requested. Possible discharge for tomorrow was discussed with the patient Objective vital signs Vital Sign Date Time Temp Pulse Resp B/P (MAP) Pulse Ox O2 Delivery O2 Flow Rate FiO2 09/04/25 16:48 97.5 106 16 125/77 (93) 100 97.5 09/04/25 08:00 Room Air* 0 21 Total Intake and Output 09/03/25 09/03/25 09/04/25 15:00 23:00 07:00 Intake Total 200 ml 250 ml Output Total 200 ml 190 ml Balance 0 ml 60 ml medications Current Medications Medications Dose Ordered Sig/Niesha Route Start Time Stop Time Status Last Admin Dose Admin Ondansetron HCl 4 mg Q6HPRN PRN IV 09/02/25 18:00 Pantoprazole Sodium 40 mg DAILY IV 09/03/25 10:00 09/04/25 09:29 40 MG Quetiapine Fumarate 100 mg HS PO 09/02/25 22:00 09/03/25 21:15 100 MG Temazepam 30 mg HSPRN PRN PO 09/02/25 18:00 09/03/25 22:15 30 MG Fluoxetine HCl 40 mg DAILY PO 09/03/25 10:00 09/04/25 09:30 40 MG Enoxaparin Sodium 40 mg DAILY SC 09/03/25 10:00 09/04/25 09:30 40 MG Insulin Glargine 10 units BID@0700,2200 SC 09/03/25 22:00 09/04/25 06:20 10 UNITS Diagnostic Test (Pha) 1 strip ACHS 09/03/25 11:30 09/04/25 17:00 1 STRIP Insulin Human Regular ACHS SC 09/03/25 11:30 09/04/25 17:00 4 UNITS Dextrose 50 ml UD PRN IV 09/03/25 08:30 Examination General Appearance: Cooperative. Well developed. Well nourished. NAD Head Exam: Normal inspection Neck Exam: Normal inspection. Non-tender. Normal alignment Pulmonary/Respiratory: Chest non-tender. Clear bilateral breath sounds, no crackles, no wheezing. Cardiovascular/Chest: Regular rate and rhythm. No murmurs. No JVD. Peripheral Pulses: 2+ Radial (R). 2+ Radial (L). 2+ Pedal (R). 2+ Pedal (L) Abdominal Exam: Normal bowel sounds. Soft. normal abdomen, no visible veins, mild tenderness in all 4 quadrants, No hepatospenomegaly. No masses Ankle Exam: Negative ankle edema Lower extremities: Negative lower extremity edema Neuro/Mental Status: A&O x4. Coherent., upper extremity strength 5/5 bilateral, right above the knee amputation, wound on left heel Thoughts/Psych: Normal thought pattern. Appropriate mood and affect. Good judgement and insight Skin Exam: Normal inspection. Normal color. Warm. Dry laboratory and microbiology Laboratory Tests 09/04/25 05:30 Test 09/04/25 05:30 Range/Units Serum Glucose 162 H 74-106 mg/dL Labs and/or images reviewed: Labs reviewed by me, Image(s) reviewed by me Problem List/Assessment/Plan Problem List/Assessment/Plan # Mild DKA # ?Starvation ketosis # Uncontrolled type 2 diabetes mellitus with hyperglycemia - insulin Lantus 10 units b.i.d. and sliding scale insulin - HbA1c> 14 - started on consistent carb diet # ELVIS on CKD, likely prerenal due to VMN # CKD stage 3, likely due to diabetic nephropathy - 1/2 NS at 75ml/hr - monitor electrolytes - avoid nephrotoxic agents # History of bipolar disorder # History of schizophrenia - continue on fluoxetine 40 mg daily - quetiapine 100 mg at bedtime - temazepam 30 mg hs as needed for insomnia PUD prophylaxis: Protonix DVT prophylaxis: Enoxaparin Goals of care discussed with the patient and his mother for over 21 minutes Code status: Full code Plan discussed with Dr. Guadarrama Plan discussed with: Patient My Orders My Orders Orders - MYLES LAWS RESIDENT Procedure Category Date Status Time * Survey Party Chief CONS 09/04/25 Transmitted Consult * Survey Party Chief CONS 09/04/25 Transmitted Consult 14:59 Date of Service: Sep 04, 2025 Billing Provider: EMERSON GUADARRAMA MD Common Visit Codes: [id number] INP/OBS CARE(HIGH) MYLES LAWS RESIDENT Sep 04, 2025 19:42 EMERSON GUADARRAMA MD Sep 04, 2025 23:13
[2025-09-05] VITALS (7 sets, daily range): BP systolic 106–146; BP diastolic 71–88; PULSE 105–110; RESP 16–18; TEMP 97.5–98.1; O2SAT 92–100
[2025-09-05 06:54] LABS: Hematocrit 34.7 % (41.0-53.0); Hemoglobin 11.9 g/dL (13.5-17.5); Mean Corpuscular Hemoglobin 29.8 pg (28.0-32.0); Mean Corpuscular Volume 87.2 fL (80.0-100.0); Nucleated Red Blood Cells % 0.1 %
[2025-09-05 07:01] LABS: Anion Gap 14 (5-15); Calcium 8.8 mg/dL (8.7-10.4); Carbon Dioxide 20 mmol/L (20-31); Chloride 106 mmol/L (98-107); Potassium 3.6 mmol/L (3.5-5.1); Sodium 140 mmol/L (136-145)
[2025-09-05 07:07] LABS: BUN/Creatinine Ratio 10.4 (10.0-20.0); Blood Urea Nitrogen 14 mg/dL (9-23); Glucose 102 mg/dL (74-106)
[2025-09-05] MEDS ORDERED: INSU100I4 SC (15:54)
[2025-09-05] MEDS ORDERED: PANT40T PO (15:54)
--- NOTE | 2025-09-05 19:16 | DVHDSRES ---
Discharge Summary Date of Admission Resident Creating Document: MYLES LAWS RESIDENT Sep 02, 2025 at 17:07 Date of Discharge: Sep 05, 2025 Admitting Diagnosis DKA Labs/Diagnostic Data: Laboratory Results Test 09/05/25 06:19 09/05/25 05:17 09/02/25 18:40 09/02/25 17:36 POC Glucose 140 mg/dl (70-106) White Blood Count 4.4 10^3/uL (4.4-10.8) Red Blood Count 3.98 10^6/uL (4.5-5.90) Hemoglobin 11.9 g/dL (13.5-17.5) Hematocrit 34.7 % (41.0-53.0) Mean Corpuscular Volume 87.2 fL (80.0-100.0) Mean Corpuscular Hemoglobin 29.8 pg (28.0-32.0) Mean Corpuscular Hemoglobin Concent 34.2 g/dL (32.0-36.0) Red Cell Distribution Width 13.1 % (11.8-14.3) Platelet Count 531 10^3/uL (140-450) Mean Platelet Volume 7.4 fL (6.9-10.8) Neutrophils (%) (Auto) 47.2 % (37.0-80.0) Lymphocytes (%) (Auto) 37.9 % (10.0-50.0) Monocytes (%) (Auto) 10.7 % (0.0-12.0) Eosinophils (%) (Auto) 3.1 % (0.0-7.0) Basophils (%) (Auto) 1.1 % (0.0-2.0) Neutrophils # (Auto) 2.1 10 ^3/uL (1.6-8.6) Lymphocytes # (Auto) 1.6 10 ^3/uL (0.4-5.4) Monocytes # (Auto) 0.5 10 ^3/uL (0-1.3) Eosinophils # (Auto) 0.1 10 ^3/uL (0-0.8) Basophils # (Auto) 0 10 ^3/uL (0-0.2) Nucleated Red Blood Cells 0.1 % Sodium Level 140 mmol/L (136-145) Potassium Level 3.6 mmol/L (3.5-5.1) Chloride Level 106 mmol/L (98-107) Carbon Dioxide Level 20 mmol/L (20-31) Anion Gap 14 (5-15) Blood Urea Nitrogen 14 mg/dL (9-23) Creatinine 1.35 mg/dL (0.700-1.30) Glomerular Filtration Rate Calc 60 mL/min (>90) BUN/Creatinine Ratio 10.4 (10.0-20.0) Serum Glucose 102 mg/dL (74-106) Calcium Level 8.8 mg/dL (8.7-10.4) Serum Osmolality 305 mOsm/kg (278-298) Phosphorus Level 3.8 mg/dL (2.4-5.1) Magnesium Level 1.9 mg/dL (1.6-2.6) Blood Gas Specimen Type Arterial Blood Gas Sample Site Right brachial Blood Gas Patient Temperature 37.0 Arterial Blood Date Drawn [id number] Arterial Blood pH 7.351 (7.350-7.450) Arterial Blood Partial Pressure CO2 27.0 mmHg (35.0-48.0) Arterial Blood Partial Pressure O2 86.5 mmHg (83.0-108.0) Arterial Blood HCO3 14.6 mmol/L (21.0-28.0) Arterial Blood Oxygen Saturation 96.1 % (94.0-98.0) Arterial Blood Base Excess -9.4 mmol/L (-2.0-3.0) Arterial Blood Oxyhemoglobin 95.1 % (94.0-98.0) Arterial Blood Carboxyhemoglobin 0.6 % (0.5-1.5) Arterial Blood Methemoglobin 0.4 % (0.0-1.5) Carmelo Test N/a Blood Gas Total Hemoglobin 12.50 g/dL (13.5-17.5) Blood Gas Modality Room air FiO2 % 21.0 Test 09/02/25 13:08 09/02/25 11:33 Urine Color Colorless (Yellow) Urine Clarity Clear (Clear) Urine pH 6.0 (5.0-9.0) Urine Specific [place] 1.016 (1.001-1.035) Urine Protein 1+ (Negative) Urine Ketones 3+ (Negative) Urine Blood Negative /uL (Negative) Urine Nitrite Negative (Negative) Urine Bilirubin Negative (Negative) Urine Urobilinogen Normal mg/dL (Negative) Urine Leukocyte Esterase Negative /uL (Negative) Urine RBC None seen /hpf (0 - 3) Urine Microscopic WBC 6 /HPF (0-3) Urine Squamous Epithelial Cells Few /hpf (<5) Urine Bacteria None seen /hpf (None Seen) Urine Glucose 4+ mg/dL (Normal) Total Bilirubin 0.3 mg/dL (0.2-1.0) Aspartate Amino Transferase (AST) 14 U/L (13-40) Alanine Aminotransferase (ALT) 17 U/L (7-40) Alkaline Phosphatase 112 U/L (46-116) Total Protein 6.6 g/dL (5.7-8.2) Albumin 3.9 g/dL (3.2-4.8) Lipase 32 U/L (12-53) Beta-Hydroxybutyric Acid > 4.500 mmol/L (< 0.4) Other Laboratory Tests 09/05/25 05:17 Brief Hx & Hospital Course: Aaron Del Angel is a 59-year old male with past medical history of hypertension, uncontrolled type 2 diabetes mellitus, CKD, ? Bipolar disorder/schizophrenia who presented to the hospital with a chief complaint of intractable nausea, vomiting and abdominal pain for the last 5 days. The patient mentioned he started having nausea and multiple episodes of nonbilious, nonbloody vomiting since 5 days and was not able to keep anything down. He also mentioned he had intense abdominal pain, rated as 8/10 in intensity, all over the abdomen. He mentioned that his blood glucose level was fluctuating would sometimes go to a high of 600, even on increasing the insulin at home. On arrival to the ED patient was found to have an elevated anion gap with a decreased serum bicarbonate, elevated beta hydroxybutyrate and 3+ urine ketones. CT abdomen pelvis with IV contrast did not show any acute abdominopelvic abnormality. He was started on insulin drip on arrival to the hospital, which was transitioned to Lantus 10 units b.i.d. and insulin sliding scale the next morning. He was continued on the same insulin regimen. His abdominal pain improved gradually and he no longer complained of nausea, vomiting or abdominal pain today. He was discharged home in a stable condition with transport arranged. library services assistant tried to arrange wheelchair for him, but were not able to as he had gotten a wheelchair in 2023. He was sent home on insulin lispro 5 units a.c., insulin glargine 15 units SC b.i.d. and insulin aspart 1-10 units SC TID prn. All medications and recommendations were thoroughly explained to him and he demonstrated understanding of the same. He was recommended to follow-up in discharge Clinic within 1 week and with PCP in 1-2 weeks. Past medical history: hypertension, uncontrolled type 2 diabetes mellitus, CKD, ? Bipolar disorder/schizophrenia Past surgical history: Right above knee amputation (? Diabetic foot infection) Social & Personal history: Lives at home with family, denies current smoking, alcohol or drug use Allergies: Egg solids, whole Physical examination on the day of discharge General Appearance: Cooperative. Well developed. Well nourished. NAD Head Exam: Normal inspection Neck Exam: Normal inspection. Non-tender. Normal alignment Pulmonary/Respiratory: Chest non-tender. Clear bilateral breath sounds, no crackles, no wheezing. Cardiovascular/Chest: Regular rate and rhythm. No murmurs. No JVD. Peripheral Pulses: 2+ Radial (R). 2+ Radial (L). 2+ Pedal (R). 2+ Pedal (L) Abdominal Exam: Normal bowel sounds. Soft. normal abdomen, no visible veins, no tenderness, No hepatospenomegaly. No masses Ankle Exam: Negative ankle edema Lower extremities: Negative lower extremity edema Neuro/Mental Status: A&O x4. Coherent., upper extremity strength 5/5 bilateral, right above the knee amputation, healed wound on left heel Thoughts/Psych: Normal thought pattern. Appropriate mood and affect. Good judgement and insight Skin Exam: Normal inspection. Normal color. Warm. Dry Operations or Procedures PROCEDURE(s): ABPLIV - CT AB PEL WITH IV CON ONLY REASON: diffuse abd pain/vomiting; prior surg; eval for SBO ORDER NUMBER(s): [id number], ACCESSION NUMBER(s): [id number] Exam: CT CT AB PEL WITH IV CON ONLY History: diffuse abd pain/vomiting; prior surg; eval for SBO COMPARISON: CT CT AB PEL WITH IV CON ONLY on DOS: 08/06/25, CT CT AB PEL WO CON- NO ORAL OR IV on DOS: 03/15/25 Technique: Multidetector spiral CT of the abdomen and pelvis was performed from lung bases to pubic symphysis. Intravenous contrast was administered during this examination. Portal venous imaging was obtained. Axial, coronal and sagittal multiplanar reformats were performed by the technologist on a separate workstation. Radiation Dose : 1. Abdomen/Pelvis: CTDIvol 14.31 mGy, DLP 904.49 mGy*cm. CONTRAST: Type of contrast: Omnipaque 300 Contrast injected: 1 ml Findings: Lung Bases: No acute or significant lung base finding. Normal heart size. No pleural or pericardial effusion. Liver: The liver is normal in size. No focal lesions. Normal hepatic vascular enhancement. Gallbladder and Biliary Tree: Unremarkable Spleen: Unremarkable Pancreas: The pancreas is normal in appearance without focal lesions or abnormal enhancement. Adrenal Glands: Unremarkable Kidneys: No hydronephrosis. Bladder: Unremarkable Bowel: The stomach is grossly normal in appearance. Small bowel and colon are normal in caliber and distribution. Normal appendix is visualized in the right lower quadrant without findings of appendicitis. Ascites: Absent Lymphadenopathy: No mesenteric, retroperitoneal or periportal lymphadenopathy. Abdominal Wall and Mesentery: Unremarkable. Vasculature: The visualized abdominal aorta is normal in size and caliber. Abdominal and pelvic vessels demonstrate normal enhancement. Pelvic Organs: Unremarkable Musculoskeletal: No aggressive focal bony lesions, acute fractures or dislocation. IMPRESSION: No acute abdominal or pelvic finding. Radiation optimization: All CT scans at this facility use at least one of these dose optimization techniques: automated exposure control mA and/or kV adjustment per patient size (includes targeted exams where dose is matched to clinical indication) or iterative reconstruction. Condition at Discharge: Fair Final Diagnosis/Problems List Mild DKA Starvation ketosis Uncontrolled type 2 diabetes mellitus with hyperglycemia ELVIS on CKD, likely prerenal due to VMN CKD stage 3, likely due to diabetic nephropathy History of bipolar disorder History of schizophrenia Discharge Disposition: Home Discharge Instruct/Medications Diet: Consistent carbohydrate, Cardiac 2g Na,low cholest, Renal Activity: Light activity Follow Up/Referral: follow up in dc clinic in 1 week follow up with PCP in 1-2 weeks Medications: as per EMR Scheduled Amlodipine Besylate (Amlodipine Besylate), 1 TAB PO DAILY, (Reported) Apixaban Base (Eliquis), 1 TAB PO BID, (Reported) Aspirin (Aspirin Low Dose), 1 TAB PO DAILY, (Reported) Atorvastatin Calcium (Atorvastatin Calcium), 1.5 TAB PO DAILY, (Reported) Ertugliflozin l-Pyroglutamic A (Steglatro), 1 TAB PO DAILY IN AM, (Reported) Fluoxetine HCl (Fluoxetine HCl), 2 CAP PO QAM, (Reported) Folic Acid (Folic Acid), 1 TAB PO DAILY, (Reported) Gabapentin (Gabapentin), 1 CAP PO TID, (Reported) Insulin Glargine (Lantus Solostar), 15 UNIT SC BID Insulin Lispro (Humalog Kwikpen), 5 UNIT SC AC Losartan Potassium (Losartan Potassium), 1 TAB PO DAILY@BREAKFAST, (Reported) Metoprolol Tartrate (Lopressor Tablet), 1 TAB PO BID, (Reported) Olanzapine (Olanzapine), 1 TAB PO QPM, (Reported) Pantoprazole Sodium Sesquihydr (Pantoprazole Sodium), 40 MG PO DAILY Quetiapine Fumerate (Quetiapine Fumarate), 1 TAB PO HS, (Reported) Temazepam (Temazepam), 1 CAP PO HS, (Reported) Scheduled PRN Baclofen (Baclofen), 1 TAB PO BIDP PRN for FOR MUSCLE SPASM, (Reported) Hydrocodone-Acetaminophen (Hydrocodone Bitartrate/AC 10-325 mg), 1 TAB PO Q8HPRN PRN for PAIN SCALE 7 THRU 10, (Reported) Hydroxyzine HCl (Hydroxyzine Hydrochloride), 1 TAB PO TIDP PRN for ANXIETY, (Reported) Insulin Aspart (Novolog Flexpen Relion), 1-10 UNIT SC TIDWM PRN Discharge Statement: "Patient was advised to return to the ER or call 911 if any headaches, dizziness, shortness of breath, chest pain, abdominal pain, bleeding, fevers, or worsening of medical condition. Patient was counseled about treatment plan, medications, possible side effects, patientverbalized understanding. All questions were answered to the best of my ability. This discharge took greater then 30 minutes in planning, reviewing documentation, counseling the patient, and discussing with other team members." ASSESSMENT ASSESSMENT Assessment DIABETIC KETOACIDOSIS Date of Service: Sep 05, 2025 Billing Provider: EEMRSON CÁRDENAS MD Common Visit Codes: [id number]/[id number] DISCH DAY >30min MYLES LAWS RESIDENT Sep 05, 2025 19:16 EMERSON CÁRDENAS MD Sep 06, 2025 13:33
== END 2025-09-05 18:25 | disposition home or self-care (01) | DRG 420 ==
LOC: ER 10:56 → EDBD 10:56 → OVERFLOW 17:07 → TELE-WESTW 09-03 17:10
PROVIDERS: ADMIT Internal Medicine; ATTEND Internal Medicine
DX: E11.10 Type 2 diabetes mellitus with ketoacidosis without coma (principal); N17.0 Acute kidney failure with tubular necrosis; K74.60 Unspecified cirrhosis of liver; Z89.611 Acquired absence of right leg above knee; E11.65 Type 2 diabetes mellitus with hyperglycemia; I12.9 Hypertensive chronic kidney disease with stage 1 through stage 4 chronic kidney disease, or unspecified chronic kidney disease; F20.9 Schizophrenia, unspecified; N18.30 Chronic kidney disease, stage 3 unspecified; F31.9 Bipolar disorder, unspecified; E11.22 Type 2 diabetes mellitus with diabetic chronic kidney disease; Z86.73 Personal history of transient ischemic attack (TIA), and cerebral infarction without residual deficits; Z91.0120 Allergy to eggs, unspecified; Z91.148 Patient's other noncompliance with medication regimen for other reason; Z79.4 Long term (current) use of insulin
CPT/HCPCS: 36415; 36600; 74177; 80048; 80053; 81001; 82010; 82805; 82962; 83690; 83735; 83930; 84100; 85025; 96365; 96375; 97163; 99291; G0378; J1815; J2405; J2470; J3490

== ENCOUNTER 2025-09-09 17:23 | Inpatient (IN) | payer MEDICAID ==
[~2025-09-09] VITALS: Ht 165.1 cm; Wt 68.6 kg
[~2025-09-09 17:23] MED LIST changes: +INSU100I4 SC; +PANT40T PO
[2025-09-09 18:10] VITALS: PULSE 79; RESP 14; O2SAT 100
--- NOTE | 2025-09-09 18:13 | ED.PDOC ---
History of Present Illness HPI Comments Patient is a 59-year-old male with past medical history of hypertension, type 2 diabetes, bipolar disorder/schizophrenia, CKD, CVA, questionable liver cirrhosis, who comes in after he was sent from his PCP's office for hypotension. According to the patient and patient's mother at bedside, patient has been hav ing trouble sleeping lately, on Monday patient had 3 episodes of vomiting, vomitus containing food particles associated with nausea and his blood pressure has been low ever since, however, patient did not want to come to the hospital. Today patient went to his discharge clinic appointment we are again he was noted to have low blood pressure and was subsequently sent to the ER for further evaluation and management. On review of systems patient is complaining of chills, sore throat, nausea and vomiting. Patient became septic at 6:37 p.m. in sepsis protocol was started. Chief Complaint: Low Blood Pressure Time Seen by MD: 17:59 Allergies: Coded Allergies: Egg Solids, Whole (Verified Allergy, Intermediate, VOMITING, 08/08/25) Home Meds Active Scripts Pantoprazole Sodium Sesquihydr (Pantoprazole Sodium) 40 Mg Tab, 40 MG PO DAILY for 7 Days, #7 TAB Prov:PRANAY YAN RESIDENT 09/05/25 Insulin Lispro (Humalog Kwikpen) 100 Unit/Ml Inj, 5 UNIT SC AC for 60 Days, #1 INJ Prov:PRANAY YAN RESIDENT 09/05/25 Insulin Aspart (Novolog Flexpen Relion) 100 Unit/Ml Inj, 1-10 UNIT SC TIDWM PRN, #1 INJ 1 Refill [id number]; 180=4u; 240=6u; 300=8u; 350=10u; >400-12u+ED Prov:SUKI ARAUJO MD 08/05/25 Insulin Glargine (Lantus Solostar) 100 Unit/Ml Inj, 15 UNIT SC BID for 30 Days, #3 INJ 1 Refill Prov:SUKI AARUJO MD 08/05/25 Reported Medications Hydrocodone-Acetaminophen (Hydrocodone Bitartrate/AC 10-325 mg) 1 Tab Tab, 1 TAB PO Q8HPRN PRN for PAIN SCALE 7 THRU 10, TAB 08/08/25 Aspirin (Aspirin Low Dose) 81 Mg Chw, 1 TAB PO DAILY, #30 TAB 3 Refills 08/08/25 Baclofen (Baclofen) 20 Mg Tab, 1 TAB PO BIDP PRN for FOR MUSCLE SPASM for 50 Days, #100 04/02/25 Gabapentin (Gabapentin) 400 Mg Cap, 1 CAP PO TID for 90 Days, #270 04/02/25 Hydroxyzine HCl (Hydroxyzine Hydrochloride) 50 Mg Tab, 1 TAB PO TIDP PRN for ANXIETY for 30 Days, #90 04/02/25 Metoprolol Tartrate (LOPRESSOR TABLET) 50 Mg Tb, 1 TAB PO BID for 30 Days, #60 04/02/25 Amlodipine Besylate (Amlodipine Besylate) 10 Mg Tab, 1 TAB PO DAILY for 30 Days, #30 04/02/25 Olanzapine (OLANZAPINE) 2.5 Mg Tab, 1 TAB PO QPM for 30 Days, #30 04/02/25 Fluoxetine HCl (Fluoxetine HCl) 20 Mg Cap, 2 CAP PO QAM for 30 Days, #60 04/02/25 Apixaban Base (ELIQUIS) 5 Mg Tab, 1 TAB PO BID for 90 Days, #180 03/15/25 Ertugliflozin l-Pyroglutamic A (Steglatro) 5 Mg Tab, 1 TAB PO DAILY IN AM for 90 Days, #90 03/15/25 Quetiapine Fumerate (QUETIAPINE FUMARATE) 100 Mg Tab, 1 TAB PO HS for 30 Days, #30 03/15/25 Folic Acid (Folic Acid) 1 Mg Tab, 1 TAB PO DAILY for 90 Days, #90 03/15/25 Temazepam (Temazepam) 30 Mg Cap, 1 CAP PO HS for INSOMNIA for 30 Days, #30 03/15/25 Atorvastatin Calcium (ATORVASTATIN CALCIUM) 20 Mg Tab, 1.5 TAB PO DAILY for 90 Days, #135 30 MG PO IN THE MORNING 03/15/25 Losartan Potassium (Losartan Potassium) 50 Mg Tab, 1 TAB PO DAILY@BREAKFAST for 90 Days, #90 HOLD FOR BP < 110 OR HR <60 03/15/25 Mode of Arrival: Ambulatory Past Medical History PAST MEDICAL HISTORY: CVA, DM, Liver, Schizophrenia Past Medical History (Contd): hypertension, type 2 diabetes, bipolar disorder/schizophrenia, CKD, CVA, questionable liver cirrhosis Surgical History: AKA Surgical History (Cont'd) Right [id number] amputation Family History Family History: Unknown Family History (Other): Patient is a poor historian Social History Smoker: Non-Smoker Alcohol: Denies ETOH Use Drugs: Denies Drug Use Lives In: Home Constitutional: reports: chills; denies: diaphoresis, fatigue, fever, malaise, sweats, weakness, others EENTM: reports: throat pain; denies: blurred vision, double vision, ear bleeding, ear discharge, ear drainage, ear pain, ear ringing, eye pain, eye redness, hearing loss, mouth pain, mouth swelling, nasal discharge, nose bleeding, nose congestion, nose pain, photophobia, tearing, throat swelling, voice changes, others Respiratory: denies: cough, hemoptysis, orthopnea, SOB at rest, shortness of breath, SOB with excertion, stridor, wheezing, others Cardiovascular: denies: chest pain, dizzy spells, diaphoresis, Dyspnea on exertion, edema, irregular heart beat, left arm pain, lightheadedness, palpitations, PND, syncope, others Gastrointestinal: reports: nausea, vomiting; denies: abdomen distended, abdominal pain, blood streaked bowels, constipated, diarrhea, dysphagia, difficulty swallowing, hematemesis, melena, poor appetite, poor fluid intake, rectal bleeding, rectal pain, others Genitourinary: denies: burning, dysuria, flank pain, frequency, hematuria, incontinence, penile discharge, penile sore, pain, testicle pain, testicle swelling, urgency, others Neurological: denies: dizziness, fainting, headache, left sided numbness, left sided weakness, numbness, paresthesia, pre-existing deficit, right sided numbness, right sided weakness, seizure, speech problems, tingling, tremors, weakness, others Musculoskeletal: denies: back pain, gout, joint pain, joint swelling, muscle pain, muscle stiffness, neck pain, others Integumetry: denies: bruises, change in color, change in hair/nails, dryness, laceration, lesions, lumps, rash, wounds, others Allergic/Immunocompromised: denies: Difficulty Healing, Frequent Infections, Hives, Itching, others Hematologic/Lymphatic: denies: anemia, blood clots, easy bleeding, easy bruising, swollen glands, others Endocrine: denies: excessive hunger, excessive sweating, excessive thirst, excessive urination, flushing, intolerance to cold, intolerance to heat, unexplained weight gain, unexplained weight loss, others Psychiatric: denies: anxiety, bipolar disorder, depression, hopeless, panic disorder, schizophrenia, sleepless, suicidal, others Physical Exam General Appearance: No Apparent Distress HEENT: Normal ENT Inspection, PERRL/EOMI Neck: Non-Tender, Normal, Normal Inspection Respiratory: Chest Non-Tender, No Accessory Muscle Use, No Respiratory Distress Cardiovascular: No Edema, No Murmur, No Gallop, Regular Rate/Rhythm Breast Exam: Deferred Gastrointestinal: Rebound, RUQ, Tenderness Genitalia: Deferred Pelvic: Deferred Rectal: Rectal Exam not done Extremities: No calf tenderness, Non-tender, Other (Noted to have a pressure wound on the dorsal aspect of left ankle, slight purulence) Neurologic: No Motor Deficits, Normal Mood, No Sensory Deficits Cerebellar Function: Normal Reflexes: NOT DONE Skin: NOT DONE Peripheral Pulses: 1+ dorsalis pedis (L) Lymphatic: NOT DONE Was a procedure done? Was a procedure done?: No Differential Dx Considerations may include: Infected diabetic foot ulcer Pneumonia Upper respiratory tract infection Cholecystitis Appendicitis X-Ray, Labs, Meds, VS Vital Signs Date Time Temp Pulse Resp B/P (MAP) Pulse Ox O2 Delivery O2 Flow Rate FiO2 09/09/25 18:29 97.3 78 18 113/53 (73) 100 97.3 09/09/25 18:10 97.3 79 14 86/46 (59) 100 97.3 09/09/25 18:10 79 14 100 Room Air* 0 21 09/09/25 17:36 97.8 79 16 68/36 98 97.8 Lab Test 09/09/25 18:23 Range/Units White Blood Count Pending Red Blood Count Pending Hemoglobin Pending Hematocrit Pending Mean Corpuscular Volume Pending Mean Corpuscular Hemoglobin Pending Mean Corpuscular Hemoglobin Concent Pending Red Cell Distribution Width Pending Platelet Count Pending Mean Platelet Volume Pending Neutrophils (%) (Auto) Pending Lymphocytes (%) (Auto) Pending Monocytes (%) (Auto) Pending Basophils (%) (Auto) Pending Neutrophils # (Auto) Pending Lymphocytes # (Auto) Pending Monocytes # (Auto) Pending Sodium Level Pending Potassium Level Pending Chloride Level Pending Carbon Dioxide Level Pending Anion Gap Pending Blood Urea Nitrogen Pending Creatinine Pending Glomerular Filtration Rate Calc Pending BUN/Creatinine Ratio Pending Serum Glucose Pending Calcium Level Pending Total Bilirubin Pending Aspartate Amino Transferase (AST) Pending Alanine Aminotransferase (ALT) Pending Alkaline Phosphatase Pending Total Protein Pending Albumin Pending Time of 1ST Reevaluation: 18:20 Reevaluation 1ST: Unchanged Patient Education/Counseling: Diagnosis, Treatment, Prognosis, Need For Follow Up Family Education/Counseling: Diagnosis, Treatment, Prognosis, Need For Follow Up SEPSIS Sepsis Screen Date sepsis recognized/suspect: Sep 09, 2025 Time Sepsis recognized/suspect: 1740 Recent Procedure: No On Antibiotic Therapy: No Respiratory Rate >20: No Heart Rate >90: No Temp<36 C (96.8 F) or >38.3 C: No SBP <90 or MAP <65 mmHG: Yes New Acute Mental Status Change: No Is the patient on CPAP, BIPAP,: No Physician Orders Complete Blood Count (09/09/25 18:13) Comprehensive Metabolic Panel (09/09/25 18:13) Chest Portable (09/09/25 18:13) Urinalysis (09/09/25 18:13) Abdomen Limited (09/09/25 18:13) Lactated Ringer's (09/09/25 18:45) Blood Culture (09/09/25 18:37) Lactic Acid W/ Reflex Order (09/09/25 20:00) Lactic Acid W/ Reflex Order (09/09/25 22:00) Notify Md If Map <65 Or Bp<90 (09/09/25 18:37) If Map<65 Start Vasopressor (09/09/25 18:37) Sepsis Reassesment After Fluid (09/09/25 19:37) Admit (09/09/25 18:35) Code Status (09/09/25 18:35) Acetaminophen Tablet (Tylenol Tablet) (09/09/25 18:45) Ondansetron Hcl (Zofran) (09/09/25 18:45) Complete Blood Count (09/10/25 04:00) Comprehensive Metabolic Panel (09/10/25 04:00) Npo (Nothing By Mouth) Diet (09/10/25 Breakfast) Echo 2d Mode Cardiac Dop (09/09/25 18:35) Morphine Sulfate Injection (09/09/25 18:45) Lovenox 40mg (09/10/25 10:00) Oxygen By Nasal Cannula (09/09/25 18:35) Stat Ekg For Chest Pain (09/09/25 18:35) Notify Of Changes From Base (09/09/25 18:35) [place] Operator For 24 Hours (09/09/25 18:35) Emergency Dysrhythmia Protocol (09/09/25 18:35) Rhythm Strips Once Every Shift (09/09/25 18:35) Vitamin D, 25-Hydroxy (09/09/25 18:35) Vitamin B12 (09/09/25 18:35) Urinalysis (09/09/25 18:35) Thyroid Stimulating Hormone (09/09/25 18:35) PTPTT (09/09/25 18:35) Phosphorus (09/09/25 18:35) Magnesium (09/09/25 18:35) Lipid Panel (09/09/25 18:35) Lipase (09/09/25 18:35) Lactic Acid W/ Reflex Order (09/09/25 18:35) Drug Screen (09/09/25 18:35) Ammonia (09/09/25 18:35) Vital Signs Date Time Temp Pulse Resp B/P (MAP) Pulse Ox O2 Delivery O2 Flow Rate FiO2 09/09/25 18:29 97.3 78 18 113/53 (73) 100 97.3 09/09/25 18:10 97.3 79 14 86/46 (59) 100 97.3 09/09/25 18:10 79 14 100 Room Air* 0 21 09/09/25 17:36 97.8 79 16 68/36 98 97.8 Laboratory Tests Test 09/09/25 18:23 White Blood Count Pending Departure 1 Departure Time of Disposition: 18:24 Impression: Primary Impression: Diabetic foot infection Additional Impressions: Cholecystitis Appendicitis Qualified Codes: K37 - Unspecified appendicitis Pneumonia Qualified Codes: J15.1 - Pneumonia due to Pseudomonas Disposition: 09 ADMITTED INPATIENT Condition: Guarded Critical Care Note Critical Care Time?: No Stability Stability form required: CHARLIE Huang RESIDENT Sep 09, 2025 18:13
--- NOTE | 2025-09-09 18:33 | DVHHPRES ---
History of Present Illness Resident Creating Document: ADAMA INIGUEZ History of Present Illness Aaron Del Angel is a 59-year-old male patient who presents [facility] the ED [facility] due to asymptomatic hypotension. Patient reports multiple episodes of nonbloody vomiting with food content emesis, and nausea. Patient also complains of left ankle nonhealing wound, which has been progressively improving with home health services. Denies any other associated symptom. Past medical history: Hypertension, dyslipidemia, diabetes, diabetic feet status post [id number] amputation of right limb and requires home health services for left ankle, thyroid disease, chronic kidney disease, patient believes he has alcoholic liver cirrhosis but imaging ruled it out, bipolar disorder/schizophrenia, CVA Surgical history: Right [id number] amputation Family history: Mother had heart disease Social history: Lives in [place] with family (next of kin is Kareem, cousin). Ex ethanol abuse (three bottles of Tequila per day for25 years) quit15 years ago. Denies current tobacco, alcohol and other drug abuse Allergies: Denies Home medication: Denies Patient seen and examined at bedside. Currently has no new complaints. Patient admitted for further evaluation. Past Medical History Per HPI Past Surgical History Per HPI Family History Per HPI Past Social History Per HPI Review of Systems Review of Systems Per HPI Allergies: Coded Allergies: Egg Solids, Whole (Verified Allergy, Intermediate, VOMITING, 08/08/25) Exam Vital Signs Vital Signs Date Time Temp Pulse Resp B/P (MAP) Pulse Ox O2 Delivery O2 Flow Rate FiO2 09/09/25 18:29 97.3 78 18 113/53 (73) 100 97.3 09/09/25 18:10 Room Air* 0 21 Exam Patient lying in bed, in no acute distress General: Lucid, afebrile, mucosae are moist Cardiovascular: Normal S1 and S2. No murmurs, gallops or rubs Respiratory: Normal ventilation mechanics. Clear lung sounds on auscultation Abdomen: Soft, nontender, no organomegaly, normal bowel sounds MSK/skin: Mobilizes 4 limbs, has above the knee amputation on right limb. Skin is dry and warm. Ulcer in left ankle, mild serous secretion Neurological: Oriented in 3 spheres. No motor no sensitive deficits. Pupils are isocoric and reactive Labs/Xrays Labs Test 09/09/25 18:23 Range/Units SEPSIS Sepsis Screen Date sepsis recognized/suspect: Sep 09, 2025 Time Sepsis recognized/suspect: 1750 Recent Procedure: No On Antibiotic Therapy: No Respiratory Rate >20: No Heart Rate >90: No Temp<36 C (96.8 F) or >38.3 C: No SBP <90 or MAP <65 mmHG: Yes New Acute Mental Status Change: No Is the patient on CPAP, BIPAP,: No Physician Orders Complete Blood Count (09/09/25 18:13) Comprehensive Metabolic Panel (09/09/25 18:13) Chest Portable (09/09/25 18:13) Urinalysis (09/09/25 18:13) Abdomen Limited (09/09/25 18:13) Vital Signs Date Time Temp Pulse Resp B/P (MAP) Pulse Ox O2 Delivery O2 Flow Rate FiO2 09/09/25 18:29 97.3 78 18 113/53 (73) 100 97.3 09/09/25 18:10 97.3 79 14 86/46 (59) 100 97.3 09/09/25 18:10 79 14 100 Room Air* 0 21 09/09/25 17:36 97.8 79 16 68/36 98 97.8 Laboratory Tests Test 09/09/25 18:23 White Blood Count Pending Assessment/Plan Assessment/Plan ASSESSMENT Sepsis probably secondary to nonhealing left ankle wound Diabetic feet - status post right [id number] amputation ELVIS hemodynamically mediated (VMN) on CKD Hyperkalemia Normocytic anemia Ruled out hepatic/biliary disease Hypertension Dyslipidemia Diabetes Hypothyroidism Ex ethanol abuse PLAN Patient admitted to [facility] Currently on IV fluids, vasopressors on standby, empiric IV antibiotic (cefepime and linezolid) Required hyperkalemia protocol Ordered blood cultures Ordered abdomen ultrasound which ruled out hepatic and biliary disease. Consulted wound care Ordered left lower limb x-ray Goals of care discussed with patient for over 18 minutes: Full code status Discussed plan with Dr. Mckee, patient and nurses: Patient admitted to [facility] due to hypotension. Vasopressors on standby, under empiric IV antibiotic, and requiring hyperkalemia protocol. Consulted wound care and ordered pancultures. Patient has poor prognosis Plan discussed with: Patient, Other (Nurses) Date of Service: Sep 09, 2025 Billing Provider: RODNEY MCKEE MD Common Visit Codes: 96016-[id number] INP/OBS CARE (HIGH) Secondary Visit Codes: 37856-[id number] CARE PLAN 30 MINUTES ADAMA INIGUEZ RESIDENT Sep 09, 2025 18:33
[2025-09-09 18:37] LABS: Hematocrit 31.8 % (41.0-53.0); Hemoglobin 10.1 g/dL (13.5-17.5); Mean Corpuscular Hemoglobin 29.4 pg (28.0-32.0); Mean Corpuscular Volume 92.9 fL (80.0-100.0); Nucleated Red Blood Cells % 0.1 %
[2025-09-09] MEDS ORDERED: VANCOMYCIN PER PHARMACY 0 MG IV SCH ×2 (18:45)
[2025-09-09] MEDS: LACTATED RINGER'S 1,500 ML IV ONE (18:45)
[2025-09-09] MEDS ORDERED: VANCOMYCIN 1GM/250ML KIT 250 ML IV ONE (18:45)
[2025-09-09] MEDS ORDERED: ONDANSETRON HCL 4 MG/2 ML VIAL IV PRN (18:45)
[2025-09-09] MEDS ORDERED: DEXTROSE (50%) 50ML SYRG IV PRN (18:45)
--- NOTE | 2025-09-09 18:53 | DVH ---
CHEST RADIOGRAPH Indication: sob Technique: Single frontal view of the chest was obtained Comparison: XY CHEST XRAY 1 VIEW on DOS: 08/06/25, XY CHEST XRAY 1 VIEW on DOS: 04/10/25, XY CHEST XRAY 1 VIEW on DOS: 04/08/25 FINDINGS: Lines and Tubes: None Lungs: No focal consolidation. Eventration of the right hemidiaphragm. Pleura: No effusion. No pneumothorax. Cardiomediastinal contours: Unremarkable Bones: No acute osseous abnormality. IMPRESSION: No acute cardiopulmonary disease.
[2025-09-09 18:56] LABS: Alanine Aminotransferase 12 U/L (7-40); Albumin 3.1 g/dL (3.2-4.8); Alkaline Phosphatase 70 U/L (46-116); Anion Gap 14 (5-15); BUN/Creatinine Ratio 15.7 (10.0-20.0); Bilirubin, Total < 0.2 mg/dL (0.2-1.0); Blood Urea Nitrogen 32 mg/dL (9-23); Calcium 7.6 mg/dL (8.7-10.4); Carbon Dioxide 17 mmol/L (20-31); Chloride 114 mmol/L (98-107); Glucose 150 mg/dL (74-106); Potassium 5.4 mmol/L (3.5-5.1); Sodium 145 mmol/L (136-145); Total Protein 5.0 g/dL (5.7-8.2)
[2025-09-09 19:20] VITALS: PULSE 76; RESP 14; O2SAT 100
[2025-09-09 19:20] LABS: Cholesterol 137.0 mg/dL (< 200); INR 1.05 (0.9-1.15); Partial Thromboplastin Time 28.0 SEC (24.5-34.5); Prothrombin Time 11.1 sec (9.3-11.8)
[2025-09-09 19:26] LABS: HDL Cholesterol 38.0 mg/dL (40-59); Magnesium 1.6 mg/dL (1.6-2.6); Triglycerides 209.0 mg/dL (< 150)
--- NOTE | 2025-09-09 19:26 | DVH ---
Procedure: US ABDOMEN LIMITED Study Date and Requested Time: 09/09/2025 06:39 PM History: RUQ tenderness Comparison: Same-day CT abdomen and pelvis Technique: Multiple high resolution paulson-scale images obtained of the right upper quadrant of the abdomen with color Doppler for evaluation of blood flow and vascularity as indicated. Findings: Liver normal in size, measuring 15 cm in length, with homogenous echotexture and normal contours. No evidence of focal hepatic lesions, intrahepatic or extrahepatic ductal dilatation. Common bile duct measures 0.6 cm in diameter. Gallbladder unremarkable with no evidence of abnormal wall thickening, gallstones, biliary sludge, or pericholecystic fluid. Negative sonographic Badillo's sign. Pancreas is unremarkable. Right kidney measures 9 cm in length, with normal contours, echotexture, and cortical thickness. No evidence of hydronephrosis, calculi, cystic or solid renal lesions. Partially visualized inferior vena cava unremarkable. Impression: Unremarkable sonographic study of the right upper quadrant of the abdomen.
[2025-09-09 19:37] LABS: Lipase 33.0 U/L (12-53)
[2025-09-09] MEDS: CEFEPIME 1GM/50ML 50 ML IV ONE (20:49)
[2025-09-09 21:53] LABS: Lactic Acid w/Reflex 3.0 mmol/L (0.4-2.0)
[2025-09-09] MEDS ORDERED: PIPERACILLIN-TAZOB 3.375GM 100 ML IV SCH (22:00)
[2025-09-09] MEDS: ALBUTEROL SULF 2.5 MG/0.5ML(0.5%) NEB SOLN NEB ONE (22:15)
[2025-09-09] MEDS: FUROSEMIDE 40 MG/4 ML VIAL IV ONE (22:30)
[2025-09-09] MEDS: SODIUM ZIRCONIUM CYCL 10 GM PAK PO ONE (22:30)
[2025-09-09] MEDS: SODIUM BICARB 8.4% 50Meq/50ml SYR INJ IV ONE (22:31)
[2025-09-09] MEDS: DEXTROSE (50%) 50ML SYRG IV ONE (22:48)
[2025-09-09] MEDS: InsuLIN REG 1unit/0.01ml Soln (100units/ml) IV ONE (22:52)
[2025-09-09] MEDS: SODIUM CHLORIDE 0.9% 1,000 ML IV ONE (22:52)
[2025-09-10] MEDS: ACCU-CHEK COMFORT CURVE STRIP VI SCH (00:18)
[2025-09-10] MEDS: InsuLIN REG 1unit/0.01ml Soln (100units/ml) SC SCH (00:19)
[2025-09-10] MEDS: LINEZOLID 600MG/300ML 300 ML IV SCH (00:26)
[2025-09-10 04:36] LABS: Hematocrit 32.5 % (41.0-53.0); Hemoglobin 11.0 g/dL (13.5-17.5); Mean Corpuscular Hemoglobin 29.9 pg (28.0-32.0); Mean Corpuscular Volume 87.9 fL (80.0-100.0); Nucleated Red Blood Cells % 0.0 %
[2025-09-10 05:03] LABS: Alanine Aminotransferase 10 U/L (7-40); Albumin 3.5 g/dL (3.2-4.8); Alkaline Phosphatase 102 U/L (46-116); Anion Gap 13 (5-15); BUN/Creatinine Ratio 15.4 (10.0-20.0); Carbon Dioxide 21 mmol/L (20-31); Chloride 105 mmol/L (98-107); Potassium 3.8 mmol/L (3.5-5.1); Sodium 139 mmol/L (136-145); Total Protein 5.9 g/dL (5.7-8.2)
[2025-09-10 05:17] LABS: Bilirubin, Total 0.2 mg/dL (0.2-1.0); Blood Urea Nitrogen 27 mg/dL (9-23); Calcium 7.9 mg/dL (8.7-10.4); Glucose 271 mg/dL (74-106)
[2025-09-10 08:00] VITALS: PULSE 93; RESP 18; O2SAT 100
--- NOTE | 2025-09-10 08:09 | DVH ---
CLINICAL INDICATION: Left non healing wound TECHNIQUE: XY L FOOT 3 VIEW XRAY Comparison: None FINDINGS/IMPRESSION: : There is no evidence of acute fracture or dislocation. Possible soft-tissue ulceration of the posterior aspect of the foot. No radiographic findings of osteomyelitis. Vascular atherosclerotic calcifications are present.
[2025-09-10 08:58] LABS: Amphetamine Screen, Urine Neg (NEGATIVE); Barbiturate Scree,Urine Neg (NEGATIVE); Benzodiazephine Screen, Urine Neg (NEGATIVE); Cannabinoid Screen, Urine Neg (NEGATIVE); Cocaine Screen, Urine Neg (NEGATIVE); Opiate Scree,Urine Neg (NEGATIVE); Phencyclidine Screen, Urine Neg (NEGATIVE)
[2025-09-10] MEDS: CEFEPIME 1GM/50ML 50 ML IV ONE (09:02)
[2025-09-10 09:10] LABS: Urine Protein, UAD 1+ (Negative)
[2025-09-10] MEDS: ENOXAPARIN SOD 40 MG/0.4 ML SYRINGE SC SCH (11:11)
[2025-09-10] MEDS: FOLIC ACID 1 MG TAB PO SCH (11:11)
[2025-09-10] MEDS: PANTOPRAZOLE 40 MG TAB PO SCH (11:11)
--- NOTE | 2025-09-10 11:54 | DVH ---
Indication: rule out PDA Technique: Real- time ultrasound images of the left lower extremity with grayscale, color, and spectral wave Doppler. Comparison: None Findings: Biphasic waveforms left HARNESS [employer]ER, SFA, popliteal, posterior tibial, anterior tibial arteries. Monophasic waveform left dorsalis pedis artery. No significant color flow seen within the left dorsalis pedis artery. Peak systolic velocities are as follows (in cm/s): Left: Common femoral artery: 100 Profunda femoris: 85 Proximal superficial femoral: 81 Mid superficial femoral artery: 110 Distal superficial femoral artery: 81 Popliteal artery: 74 Posterior tibial artery: 60 Anterior tibial artery: 73 Dorsalis pedis artery: 10 Impression: Findings consistent with hemodynamically significant stenosis /occlusion involving the left dorsalis pedis artery.
--- NOTE | 2025-09-10 15:22 | DVH ---
CLINICAL INFORMATION: Rule out DVT. TECHNIQUE: Axial CT images of the left lower extremity were obtained without IV contrast. Images were obtained from above the level of the left hip through the distal tibial and fibular diaphyss. Coronal and sagittal reformatted images were obtained, reviewed, and stored. All CT scans at this medical facility are performed using dose modulation techniques as appropriate to a performed exam including the following: Automated exposure control was utilized; adjustment of the MA and/or KV according to patient size; and use of iterative reconstruction technique. CTDIvol = 9.73 mGy DLP = 833.06 mGy-cm COMPARISON: None FINDINGS: Can not rule out DVT on CT, particularly noncontrast enhanced CT. There is dense arterial calcification. Soft tissue thickening along the visualized portions of the achilles tendon partially visualized. No evidence of acute fracture or dislocation in the left lower extremity. Mild arthritic c hanges are seen at the left knee. Small cyst at the left femoral head/ neck junction. IMPRESSION: 1. Can not rule out DVT on CT, particularly noncontrast enhanced CT. If there is clinical concern for DVT, venous duplex ultrasound could be obtained. 2. Dense arterial calcification. 3. No acute osseous abnormality. 4. Soft tissue thickening along the course of the achilles tendon, may be due to tendinopathy. Correlate with clinical findings. If clinically indicated, MRI could be obtained to better characterize.
[2025-09-10 16:36] VITALS: BP 144/86; PULSE 99; RESP 18; O2SAT 98
--- NOTE | 2025-09-10 16:36 | DVHPNRES ---
Progress Note Date Seen: Sep 10, 2025 Resident Creating Document: UNIQUE TRAORE Medical Necessity Reason Pt with a Central, PICC or Fol: No Subjective Review of Systems This is a 59-year-old male who has past medical history of HTN, T2DM, CKD, CVA, Bipolar disorder, schizophrenia and questionable liver cirrhosis. The patient was sent from his continuity clinic to the [facility] ED for evaluation of hypotension. He reports multiple episodes of non-bloody vomiting with food content and associated nausea that began on Monday. He also complains of a non-healing left ankle wound for 3.5 years, which has been gradually improving with home health care. At 6:37 PM, the patient met criteria for sepsis, and sepsis protocol was initiated. On evaluation in the ED, patient is afebrile, vitals are stable, blood pressure was 117/65 mmHg. Initial labs show normocytic anemia, creatinine 1.75 and serum glucose 271. Foot X-ray shows possible soft-tissue ulceration of the posterior aspect of the foot and vascular atherosclerotic calcifications. The patient was started on IV antibiotics and IV fluids. Patient is admitted for further evaluation and management. Past medical history: Hypertension, dyslipidemia, diabetes, diabetic feet status post [id number] amputation of right limb and requires home health services for left ankle, thyroid disease, chronic kidney disease, patient believes he has alcoholic liver cirrhosis but imaging ruled it out, bipolar disorder/schizophrenia, CVA Surgical history: Right acoel-lhc-puba amputation Family history: Mother had heart disease Social history: Lives in [place] with family (next of kin is Kareem, cousin). Ex ethanol abuse (three bottles of Tequila per day for25 years) quit15 years ago. Denies current tobacco, alcohol and other drug abuse Allergies: Denies Home medication: Denies Patient seen and examined at bedside. Patient is alert and oriented to time, place person and responding to all questions. Constitutional: Chills, sore throat Eyes: No Pain, No Vision change, No Conjunctivae inflammation, No Eyelid inflammation, No Other, No Redness ENT: No Ear pain, No Ear discharge, No Nose pain, No Nose discharge, No Nose congestion, No Mouth pain, No Mouth swelling, No Throat pain, No Throat swelling, No Other Cardiovascular: No Chest Pain, No Palpitations, No Orthopnea, No Paroxysmal No Dyspnea, No Edema, No Lt Headedness, No Other Respiratory: No Cough, No Dry, No Shortness of breath, No SOB with exertion, No Wheezing, No Hemoptysis, No Pleuritic Pain, No Sputum, No Other Gastrointestinal: Nausea, Vomiting, No Abdominal Pain, No Diarrhea, No Constipation, No Melena, No Hematochezia, No Other Genitourinary: No Dysuria, No Frequency, No Incontinence, No Hematuria, No Retention, No Other Musculoskeletal: No other, No neck pain, No shoulder pain, No arm pain, No back pain, No hand pain, No leg pain, No foot pain Skin: No Rash, No Lesions, No Jaundice, No Bruising, No Other Objective vital signs Vital Sign Date Time Temp Pulse Resp B/P (MAP) Pulse Ox O2 Delivery O2 Flow Rate FiO2 09/10/25 15:58 105 13 129/76 (93) 100 09/10/25 12:00 99.1 99.1 09/10/25 08:00 Room Air* 0 21 Total Intake and Output 09/09/25 09/09/25 09/10/25 15:00 23:00 07:00 Intake Total 1500 ml 300 ml Output Total 1300 ml 800 ml Balance 200 ml -500 ml medications Current Medications Medications Dose Ordered Sig/Niesha Route Start Time Stop Time Status Last Admin Dose Admin Acetaminophen 325 mg Q4HP PRN PO 09/09/25 18:45 Ondansetron HCl 4 mg Q4HP PRN IV 09/09/25 18:45 Morphine Sulfate 2 mg Q4HPRN PRN IV 09/09/25 18:45 Enoxaparin Sodium 40 mg DAILY SC 09/10/25 10:00 09/10/25 11:11 40 MG Diagnostic Test (Pha) 1 strip Q6HR 09/10/25 00:00 09/10/25 12:00 1 STRIP Insulin Human Regular Q6HR SC 09/10/25 00:00 09/10/25 12:34 4 UNITS Dextrose 50 ml UD PRN IV 09/09/25 18:45 Cefepime HCl 50 ml @ 12.5 mls/hr Q12H IV 09/10/25 21:00 Linezolid 300 ml @ 150 mls/hr Q12HR IV 09/09/25 22:00 09/10/25 11:12 150 MLS/HR Pantoprazole Sodium 40 mg DAILY PO 09/10/25 10:00 09/10/25 11:11 40 MG Quetiapine Fumarate 100 mg HS PO 09/10/25 22:00 Aspirin 81 mg DAILY PO 09/10/25 10:00 09/10/25 11:12 81 MG Folic Acid 1 mg DAILY PO 09/10/25 10:00 09/10/25 11:11 1 MG Insulin Glargine 20 units HS SC 09/10/25 22:00 Examination General Appearance: Cooperative. Well developed. Well nourished. NAD Head Exam: Normal inspection Neck Exam: Normal inspection. Non-tender. Normal alignment Pulmonary/Respiratory: Chest non-tender. Clear bilateral breath sounds, no crackles, no wheezing. Cardiovascular/Chest: Regular rate and rhythm. No murmurs. No JVD. Peripheral Pulses: 2+ Radial (R). 2+ Radial (L). 2+ Pedal (R). 2+ Pedal (L) Abdominal Exam: Normal bowel sounds. Soft. normal abdomen, no visible veins, Nontender. No hepatospenomegaly. No masses Ankle Exam: Negative ankle edema Lower extremities: Negative lower extremity edema Neuro/Mental Status: A&O x4. Coherent. Thoughts/Psych: Normal thought pattern. Appropriate mood and affect. Good judgement and insight MSK/skin exam: Mobilizes 4 limbs, has above the knee amputation on right limb. Skin is dry and warm. Dry ulcer in left ankle, mild serous secretion laboratory and microbiology Laboratory Tests 09/10/25 04:10 Test 09/10/25 04:10 Range/Units Serum Glucose 271 #H 74-106 mg/dL Labs and/or images reviewed: Labs reviewed by me (KUB patient), Image(s) reviewed by me (Voiding) Problem List/Assessment/Plan Problem List/Assessment/Plan Peripheral arterial disease (PAD) of the left lower extremity Left foot soft tissue ulceration Possible Achilles tendinopathy s/p Right above the knee amputation on right limb Sepsis likely due to above Lower Extremity CT: Dense arterial calcification. No acute osseous abnormality. Soft tissue thickening along the course of the achilles tendon, may be due to tendinopathy. Extremity Arterial Study: Findings consistent with hemodynamically significant stenosis /occlusion involving the left dorsalis pedis artery. Foot X-Ray: There is no evidence of acute fracture or dislocation. Possible soft-tissue ulceration of the posterior aspect of the foot. No radiographic findings of osteomyelitis. Vascular atherosclerotic calcifications are present. Single Organ Ultrasound: Unremarkable sonographic study of the right upper quadrant of the abdomen. Chest X-Ray: No acute cardiopulmonary disease. Wound consult Vascular consult pain management with Morphine and Tylenol Cefepime 1 GM IV q12h Zyvox 600 mg MRSA screen Blood culture Sputum culture Urine bacterial culture Protonix 40 mg History of CVA Aspirin 81 MG PO daily Lovenox 40 mg Bipolar disorder/schizophrenia Quetiapine 100 MG PO hs Type 2 diabetes mellitus with hyperglycemia, uncontrolled Accu-check Dextrose 50 % Mild sliding scale Insulin Lantus 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 Monitor renal function Avoid nephrotoxic drugs Questionable liver cirrhosis Diet: Clear liquid PUD prophylaxis: protonix 40mg DVT prophylaxis: Lovenox 40mg Goals of care: Full code, discussed for >30 minutes on 09/10/25 Plan discussed with patient Plan discussed with Dr. Mckee Plan discussed with: Patient My Orders My Orders Orders - UNIQUE TRAORE Procedure Category Date Status Time Left Lower Extremity CT 09/10/25 Resulted W/O Con 13:05 Consult CONS 09/10/25 Transmitted Vascular/Endovascular 14:04 Complete Blood Count LAB 09/11/25 Verified 04:00 Comprehensive LAB 09/11/25 Verified Metabolic Panel 04:00 Date of Service: Sep 10, 2025 Billing Provider: RODNEY MCKEE MD Common Visit Codes: [id number] INP/OBS CARE(HIGH) UNIQUE TRAORE Sep 10, 2025 16:36
--- NOTE | 2025-09-10 19:41 | DVHSR ---
APPROVED REPORT EXAM: Two-dimensional and M-mode echocardiogram with Doppler and color Doppler. Blood Pressure: 107/56 mmHg INDICATION Sepsis RISK FACTORS Height: 5'0, Weight: 138 DIMENSIONS LVDd 4.8 (3.8-5.7cm) LA (2D) 3.2 (1.9-4.0cm) Aortic Root 2.8 (2.0-3.7cm) LVDs 3.4 (2.5-4.0cm) LA (MM) (1.9-4.0cm) Aortic Cusp Exc 1.7 (1.5-2.0cm) EF (%) 55.0 (55-70%) Rt. Atrium (1.9-4.0cm) Asc. Aorta 3.1 cm IVSd 0.8 (0.7-1.1cm) RV (D) (1.8-2.4cm) PWd 1.0 (0.7-1.1cm) Mitral Valve Mitral Mitral Stenosis E wave 0.51m/s MV Mean GR. mmHg A wave 0.77m/s MV Peak GR. mmHg E/A ratio 0.7 2D MVA cm2 DECEL Time 181ms PRESS 1/2 Time ms Aortic Valve Aortic Valve Aortic Stenosis V1 0.96m/s AO Mean GR. 2mmHg V2 1.08m/s AO Peak GR. 5mmHg LVOT Diameter 1.9 (1.8-2.4cm) Doppler ROM 2.52cm2 Pulmonic Valve V2 1.04m/s Other Information Technically limited study due to patient position and body habitus. Conclusion Technically difficult study. Difficult acoustic sinus rhythm. Limited views obtained. Valves appear to be structurally normal. Left ventricular function is preserved at 55% with normal RV function. Doppler is unremarkable. No pericardial effusion masses or vegetations.
[2025-09-10 21:00] VITALS: BP 153/79; PULSE 102; RESP 17; TEMP 97.6; O2SAT 100
[2025-09-10] MEDS: CEFEPIME 1GM/50ML 50 ML IV SCH (21:23)
[2025-09-10] MEDS: INSULIN LANTUS (GLARGINE) 1 /0.01ml (100units/ml) SC SCH (23:01)
[2025-09-11] VITALS (8 sets, daily range): BP systolic 100–145; BP diastolic 58–93; PULSE 99–118; RESP 16–18; TEMP 97.7–98; O2SAT 98–100
[2025-09-11 06:47] LABS: Hematocrit 34.4 % (41.0-53.0); Hemoglobin 11.7 g/dL (13.5-17.5); Mean Corpuscular Hemoglobin 29.7 pg (28.0-32.0); Mean Corpuscular Volume 87.6 fL (80.0-100.0); Nucleated Red Blood Cells % 0.1 %
[2025-09-11 07:01] LABS: Alanine Aminotransferase 11 U/L (7-40); Albumin 3.7 g/dL (3.2-4.8); Alkaline Phosphatase 80 U/L (46-116); Anion Gap 16 (5-15); BUN/Creatinine Ratio 15.9 (10.0-20.0); Bilirubin, Total 0.3 mg/dL (0.2-1.0); Blood Urea Nitrogen 20 mg/dL (9-23); Carbon Dioxide 22 mmol/L (20-31); Chloride 103 mmol/L (98-107); Potassium 4.1 mmol/L (3.5-5.1); Sodium 141 mmol/L (136-145); Total Protein 6.1 g/dL (5.7-8.2)
[2025-09-11 07:03] LABS: Calcium 8.3 mg/dL (8.7-10.4); Glucose 206 mg/dL (74-106)
--- NOTE | 2025-09-11 15:25 | DVHPNRES ---
Progress Note Date Seen: Sep 11, 2025 Resident Creating Document: UNIQUE TRAORE Medical Necessity Reason Pt with a Central, PICC or Fol: No Subjective Review of Systems This is a 59-year-old male who has past medical history of HTN, T2DM, CKD, CVA, Bipolar disorder, schizophrenia and questionable liver cirrhosis. The patient was sent from his continuity clinic to the [facility] ED for evaluation of hypotension. He reports multiple episodes of non-bloody vomiting with food content and associated nausea that began on Monday. He also complains of a non-healing left ankle wound for 3.5 years, which has been gradually improving with home health care. At 6:37 PM, the patient met criteria for sepsis, and sepsis protocol was initiated. On evaluation in the ED, patient is afebrile, vitals are stable, blood pressure was 117/65 mmHg. Initial labs show normocytic anemia, creatinine 1.75 and serum glucose 271. Foot X-ray shows possible soft-tissue ulceration of the posterior aspect of the foot and vascular atherosclerotic calcifications. The patient was started on IV antibiotics and IV fluids. Patient is admitted for further evaluation and management. On 09/11/25, Patient was seen and examined at bedside. Overnight events were reviewed. The patient reports improvement in his symptoms. Patient is afebrile, tachycardic and hypertensive (145/93 mmHg). Labs show normocytic anemia, serum 206. A wound consult was received for the patients left foot wound. Past medical history: Hypertension, dyslipidemia, diabetes, diabetic feet status post apadw-byd-xnko amputation of right limb and requires home health services for left ankle, thyroid disease, chronic kidney disease, patient believes he has alcoholic liver cirrhosis but imaging ruled it out, bipolar disorder/schizophrenia, CVA Surgical history: Right buoee-zjs-whkn amputation Family history: Mother had heart disease Social history: Lives in [place] with family (next of kin is Kareem, cousin). Ex ethanol abuse (three bottles of Tequila per day for25 years) quit15 years ago. Denies current tobacco, alcohol and other drug abuse Allergies: Denies Home medication: Denies Patient seen and examined at bedside. Patient is alert and oriented to time, place person and responding to all questions. Constitutional: Chills, sore throat Eyes: No Pain, No Vision change, No Conjunctivae inflammation, No Eyelid inflammation, No Other, No Redness ENT: No Ear pain, No Ear discharge, No Nose pain, No Nose discharge, No Nose congestion, No Mouth pain, No Mouth swelling, No Throat pain, No Throat swelling, No Other Cardiovascular: No Chest Pain, No Palpitations, No Orthopnea, No Paroxysmal No Dyspnea, No Edema, No Lt Headedness, No Other Respiratory: No Cough, No Dry, No Shortness of breath, No SOB with exertion, No Wheezing, No Hemoptysis, No Pleuritic Pain, No Sputum, No Other Gastrointestinal: Nausea, Vomiting, No Abdominal Pain, No Diarrhea, No Constipation, No Melena, No Hematochezia, No Other Genitourinary: No Dysuria, No Frequency, No Incontinence, No Hematuria, No Retention, No Other Musculoskeletal: No other, No neck pain, No shoulder pain, No arm pain, No back pain, No hand pain, No leg pain, No foot pain Skin: No Rash, No Lesions, No Jaundice, No Bruising, No Other Objective vital signs Vital Sign Date Time Temp Pulse Resp B/P (MAP) Pulse Ox O2 Delivery O2 Flow Rate FiO2 09/11/25 13:00 97.9 113 18 110/73 (85) 99 97.9 09/11/25 08:00 Room Air* 0 21 Total Intake and Output 09/10/25 09/10/25 09/11/25 15:00 23:00 07:00 Intake Total 350 ml 240 ml 550 ml Output Total 550 ml Balance 350 ml 240 ml 0 ml medications Current Medications Medications Dose Ordered Sig/Niesha Route Start Time Stop Time Status Last Admin Dose Admin Acetaminophen 325 mg Q4HP PRN PO 09/09/25 18:45 Ondansetron HCl 4 mg Q4HP PRN IV 09/09/25 18:45 Morphine Sulfate 2 mg Q4HPRN PRN IV 09/09/25 18:45 Enoxaparin Sodium 40 mg DAILY SC 09/10/25 10:00 09/11/25 09:35 40 MG Diagnostic Test (Pha) 1 strip Q6HR 09/10/25 00:00 09/11/25 12:19 1 STRIP Insulin Human Regular Q6HR SC 09/10/25 00:00 09/11/25 12:16 4 UNITS Dextrose 50 ml UD PRN IV 09/09/25 18:45 Cefepime HCl 50 ml @ 12.5 mls/hr Q12H IV 09/10/25 21:00 09/11/25 12:17 12.5 MLS/HR Linezolid 300 ml @ 150 mls/hr Q12HR IV 09/09/25 22:00 09/11/25 09:31 150 MLS/HR Pantoprazole Sodium 40 mg DAILY PO 09/10/25 10:00 09/11/25 09:35 40 MG Quetiapine Fumarate 100 mg HS PO 09/10/25 22:00 09/10/25 21:24 100 MG Aspirin 81 mg DAILY PO 09/10/25 10:00 09/11/25 09:35 81 MG Folic Acid 1 mg DAILY PO 09/10/25 10:00 09/11/25 09:35 1 MG Insulin Glargine 30 units HS SC 09/11/25 22:00 Examination General Appearance: Cooperative. Well developed. Well nourished. NAD Head Exam: Normal inspection Neck Exam: Normal inspection. Non-tender. Normal alignment Pulmonary/Respiratory: Chest non-tender. Clear bilateral breath sounds, no crackles, no wheezing. Cardiovascular/Chest: Regular rate and rhythm. No murmurs. No JVD. Peripheral Pulses: 2+ Radial (R). 2+ Radial (L). 2+ Pedal (R). 2+ Pedal (L) Abdominal Exam: Normal bowel sounds. Soft. normal abdomen, no visible veins, Nontender. No hepatospenomegaly. No masses Ankle Exam: Negative ankle edema Lower extremities: Negative lower extremity edema Neuro/Mental Status: A&O x4. Coherent. Thoughts/Psych: Normal thought pattern. Appropriate mood and affect. Good judgement and insight MSK/skin exam: Mobilizes 4 limbs, has above the knee amputation on right limb. Skin is dry and warm. Dry ulcer in left ankle, mild serous secretion laboratory and microbiology Laboratory Tests 09/11/25 05:50 Test 09/11/25 05:50 Range/Units Serum Glucose 206 H 74-106 mg/dL Microbiology Date/Time Source Procedure Growth Status 09/10/25 08:23 Nose MRSA Screen - Final Complete 09/10/25 08:00 Voided Urine Urine Culture - Preliminary No growth Resulted 09/09/25 19:11 Blood Blood Culture - Preliminary NO GROWTH AFTER 24 HOURS OF INCUBATION. Resulted Labs and/or images reviewed: Labs reviewed by me, Image(s) reviewed by me Problem List/Assessment/Plan Problem List/Assessment/Plan Peripheral arterial disease (PAD) of the left lower extremity Left foot soft tissue ulceration Possible Achilles tendinopathy s/p Right above the knee amputation on right limb Sepsis likely due to above Echocardiogram: Difficult acoustic sinus rhythm. Limited views obtained. Valves appear to be structurally normal. Left ventricular function is preserved at 55% with normal RV function. Doppler is unremarkable. No pericardial effusion masses or vegetations. Lower Extremity CT: Dense arterial calcification. No acute osseous abnormality. Soft tissue thickening along the course of the achilles tendon, may be due to tendinopathy. Extremity Arterial Study: Findings consistent with hemodynamically significant stenosis /occlusion involving the left dorsalis pedis artery. Foot X-Ray: There is no evidence of acute fracture or dislocation. Possible soft-tissue ulceration of the posterior aspect of the foot. No radiographic findings of osteomyelitis. Vascular atherosclerotic calcifications are present. Single Organ Ultrasound: Unremarkable sonographic study of the right upper quadrant of the abdomen. Chest X-Ray: No acute cardiopulmonary disease. 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 Mckee Plan discussed with: Patient My Orders My Orders Orders - UNIQUE TRAORE Procedure Category Date Status Time Mrsa Screen MIRIAN 09/10/25 Uncollected 17:09 * Household Ref[employer]igerator [employer]ic CONS 09/10/25 Transmitted Consult Date of Service: Sep 11, 2025 Billing Provider: RODNEY MCKEE MD Common Visit Codes: [id number] INP/OBS CARE(HIGH) UNIQUE TRAORE Sep 11, 2025 15:25 RODNEY MCKEE MD Sep 16, 2025 21:31
[2025-09-11] MEDS: INSULIN LANTUS (GLARGINE) 1 /0.01ml (100units/ml) SC SCH (21:22)
[2025-09-11] MEDS: MORPHINE SULFATE INJ 2 MG/ml SYRG IV PRN (21:27)
[2025-09-12] VITALS (8 sets, daily range): BP systolic 120–162; BP diastolic 62–90; PULSE 99–109; RESP 14–20; TEMP 97–98.4; O2SAT 99–100
[2025-09-12 07:05] LABS: Hematocrit 36.0 % (41.0-53.0); Hemoglobin 12.4 g/dL (13.5-17.5); Mean Corpuscular Hemoglobin 29.8 pg (28.0-32.0); Mean Corpuscular Volume 86.7 fL (80.0-100.0); Nucleated Red Blood Cells % 0.0 %
[2025-09-12 07:53] LABS: Alanine Aminotransferase 11 U/L (7-40); Albumin 3.8 g/dL (3.2-4.8); Alkaline Phosphatase 79 U/L (46-116); Anion Gap 14 (5-15); BUN/Creatinine Ratio 10.4 (10.0-20.0); Bilirubin, Total 0.3 mg/dL (0.2-1.0); Blood Urea Nitrogen 13 mg/dL (9-23); Carbon Dioxide 23 mmol/L (20-31); Chloride 105 mmol/L (98-107); Glucose 81 mg/dL (74-106); Sodium 142 mmol/L (136-145); Total Protein 6.6 g/dL (5.7-8.2)
[2025-09-12 07:54] LABS: Calcium 8.6 mg/dL (8.7-10.4); Potassium 3.4 mmol/L (3.5-5.1)
[2025-09-12] MEDS: POTASSIUM EFFERVESENT TAB 25 MEQ PO ONE (10:22)
--- NOTE | 2025-09-12 11:55 | DVHPNRES ---
Progress Note Date Seen: Sep 12, 2025 Resident Creating Document: UNIQUE TRAORE Medical Necessity Reason Pt with a Central, PICC or Fol: No Subjective Review of Systems This is a 59-year-old male who has past medical history of HTN, T2DM, CKD, CVA, Bipolar disorder, schizophrenia and questionable liver cirrhosis. The patient was sent from his continuity clinic to the [facility] ED for evaluation of hypotension. He reports multiple episodes of non-bloody vomiting with food content and associated nausea that began on Monday. He also complains of a non-healing left ankle wound for 3.5 years, which has been gradually improving with home health care. At 6:37 PM, the patient met criteria for sepsis, and sepsis protocol was initiated. On evaluation in the ED, patient is afebrile, vitals are stable, blood pressure was 117/65 mmHg. Initial labs show normocytic anemia, creatinine 1.75 and serum glucose 271. Foot X-ray shows possible soft-tissue ulceration of the posterior aspect of the foot and vascular atherosclerotic calcifications. The patient was started on IV antibiotics and IV fluids. Patient is admitted for further evaluation and management. On 09/11/25, Patient was seen and examined at bedside. Overnight events were reviewed. The patient reports improvement in his symptoms. Patient is afebrile, tachycardic and hypertensive (145/93 mmHg). Labs show normocytic anemia, serum 206. A wound consult was received for the patients left foot wound. On 09/12/25, Patient was seen and examined at bedside. Overnight events were reviewed. The patient has no new complaints. Vascular surgery consult is still pending. Past medical history: Hypertension, dyslipidemia, diabetes, diabetic feet status post [id number] amputation of right limb and requires home health services for left ankle, thyroid disease, chronic kidney disease, patient believes he has alcoholic liver cirrhosis but imaging ruled it out, bipolar disorder/schizophrenia, CVA Surgical history: Right pqjiz-jlc-fcav amputation Family history: Mother had heart disease Social history: Lives in [place] with family (next of kin is Kareem, cousin). Ex ethanol abuse (three bottles of Tequila per day for25 years) quit15 years ago. Denies current tobacco, alcohol and other drug abuse Allergies: Denies Home medication: Denies Patient seen and examined at bedside. Patient is alert and oriented to time, place person and responding to all questions. Constitutional: Chills, sore throat Eyes: No Pain, No Vision change, No Conjunctivae inflammation, No Eyelid inflammation, No Other, No Redness ENT: No Ear pain, No Ear discharge, No Nose pain, No Nose discharge, No Nose congestion, No Mouth pain, No Mouth swelling, No Throat pain, No Throat swelling, No Other Cardiovascular: No Chest Pain, No Palpitations, No Orthopnea, No Paroxysmal No Dyspnea, No Edema, No Lt Headedness, No Other Respiratory: No Cough, No Dry, No Shortness of breath, No SOB with exertion, No Wheezing, No Hemoptysis, No Pleuritic Pain, No Sputum, No Other Gastrointestinal: Nausea, Vomiting, No Abdominal Pain, No Diarrhea, No Constipation, No Melena, No Hematochezia, No Other Genitourinary: No Dysuria, No Frequency, No Incontinence, No Hematuria, No Retention, No Other Musculoskeletal: No other, No neck pain, No shoulder pain, No arm pain, No back pain, No hand pain, No leg pain, No foot pain Skin: No Rash, No Lesions, No Jaundice, No Bruising, No Other Objective vital signs Vital Sign Date Time Temp Pulse Resp B/P (MAP) Pulse Ox O2 Delivery O2 Flow Rate FiO2 09/12/25 08:50 98.4 104 20 138/81 (100) 100 98.4 09/11/25 19:46 Room Air* 0 21 Total Intake and Output 09/11/25 09/11/25 09/12/25 15:00 23:00 07:00 Intake Total 300 ml 800 ml 400 ml Output Total 800 ml Balance 300 ml 0 ml 400 ml medications Current Medications Medications Dose Ordered Sig/Niesha Route Start Time Stop Time Status Last Admin Dose Admin Acetaminophen 325 mg Q4HP PRN PO 09/09/25 18:45 Ondansetron HCl 4 mg Q4HP PRN IV 09/09/25 18:45 Morphine Sulfate 2 mg Q4HPRN PRN IV 09/09/25 18:45 09/11/25 21:27 2 MG Enoxaparin Sodium 40 mg DAILY SC 09/10/25 10:00 09/12/25 10:22 40 MG Diagnostic Test (Pha) 1 strip Q6HR 09/10/25 00:00 09/12/25 06:00 1 STRIP Insulin Human Regular Q6HR SC 09/10/25 00:00 09/12/25 00:26 3 UNITS Dextrose 50 ml UD PRN IV 09/09/25 18:45 Cefepime HCl 50 ml @ 12.5 mls/hr Q12H IV 09/10/25 21:00 09/12/25 09:00 12.5 MLS/HR Linezolid 300 ml @ 150 mls/hr Q12HR IV 09/09/25 22:00 09/11/25 21:09 150 MLS/HR Pantoprazole Sodium 40 mg DAILY PO 09/10/25 10:00 09/12/25 10:22 40 MG Quetiapine Fumarate 100 mg HS PO 09/10/25 22:00 09/11/25 21:09 100 MG Aspirin 81 mg DAILY PO 09/10/25 10:00 09/12/25 10:22 81 MG Folic Acid 1 mg DAILY PO 09/10/25 10:00 09/12/25 10:22 1 MG Insulin Glargine 30 units HS SC 09/11/25 22:00 09/11/25 21:22 30 UNITS Examination General Appearance: Cooperative. Well developed. Well nourished. NAD Head Exam: Normal inspection Neck Exam: Normal inspection. Non-tender. Normal alignment Pulmonary/Respiratory: Chest non-tender. Clear bilateral breath sounds, no crackles, no wheezing. Cardiovascular/Chest: Regular rate and rhythm. No murmurs. No JVD. Peripheral Pulses: 2+ Radial (R). 2+ Radial (L). 2+ Pedal (R). 2+ Pedal (L) Abdominal Exam: Normal bowel sounds. Soft. normal abdomen, no visible veins, Nontender. No hepatospenomegaly. No masses Ankle Exam: Negative ankle edema Lower extremities: Negative lower extremity edema Neuro/Mental Status: A&O x4. Coherent. Thoughts/Psych: Normal thought pattern. Appropriate mood and affect. Good judgement and insight MSK/skin exam: Mobilizes 4 limbs, has above the knee amputation on right limb. Skin is dry and warm. Dry ulcer in left ankle, mild serous secretion laboratory and microbiology Laboratory Tests 09/12/25 05:53 Test 09/12/25 05:53 Range/Units Serum Glucose 81 # 74-106 mg/dL Microbiology Date/Time Source Procedure Growth Status 09/10/25 08:23 Nose MRSA Screen - Final Complete 09/10/25 08:00 Voided Urine Urine Culture - Final Complete 09/09/25 19:11 Blood Blood Culture - Preliminary NO GROWTH AFTER 48 HOURS OF INCUBATION. Resulted Labs and/or images reviewed: Labs reviewed by me, Image(s) reviewed by me Problem List/Assessment/Plan Problem List/Assessment/Plan Peripheral arterial disease (PAD) of the left lower extremity Left foot soft tissue ulceration Possible Achilles tendinopathy s/p Right above the knee amputation on right limb Sepsis likely due to above Echocardiogram: Difficult acoustic sinus rhythm. Limited views obtained. Valves appear to be structurally normal. Left ventricular function is preserved at 55% with normal RV function. Doppler is unremarkable. No pericardial effusion masses or vegetations. Lower Extremity CT: Dense arterial calcification. No acute osseous abnormality. Soft tissue thickening along the course of the achilles tendon, may be due to tendinopathy. Extremity Arterial Study: Findings consistent with hemodynamically significant stenosis /occlusion involving the left dorsalis pedis artery. Foot X-Ray: There is no evidence of acute fracture or dislocation. Possible soft-tissue ulceration of the posterior aspect of the foot. No radiographic findings of osteomyelitis. Vascular atherosclerotic calcifications are present. Single Organ Ultrasound: Unremarkable sonographic study of the right upper quadrant of the abdomen. Chest X-Ray: No acute cardiopulmonary disease. Wound consult Vascular consult MRSA screen: No MRSA detected Urine culture: No growth after 48 hours of incubation Blood culture: No growth after 48 hours of incubation pain management with Morphine and Tylenol Cefepime 1 GM IV q12h Zyvox 600 mg Sputum culture Protonix 40 mg History of CVA Aspirin 81 MG PO daily Lovenox 40 mg Bipolar disorder/schizophrenia Quetiapine 100 MG PO hs Type 2 diabetes mellitus with hyperglycemia, uncontrolled Accu-check Dextrose 50 % Mild sliding scale Insulin Lantus 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 Monitor renal function Avoid nephrotoxic drugs Questionable liver cirrhosis Diet: Clear liquid PUD prophylaxis: protonix 40mg DVT prophylaxis: Lovenox 40mg Goals of care: Full code, discussed for >30 minutes on 09/12/25 Plan discussed with patient Plan discussed with Dr. Mckee Plan discussed with: Patient Date of Service: Sep 12, 2025 Billing Provider: RODNEY MCKEE MD Common Visit Codes: [id number] INP/OBS CARE(HIGH) UNIQUE TRAORE RESIDENT Sep 12, 2025 11:55
[2025-09-12] MEDS: ACETAMINOPHEN 325 MG TAB PO PRN (19:45)
[2025-09-13] VITALS (9 sets, daily range): BP systolic 95–156; BP diastolic 52–91; PULSE 56–107; RESP 16–20; TEMP 96.4–98.8; O2SAT 95–100
[2025-09-13 06:49] LABS: Hematocrit 35.7 % (41.0-53.0); Hemoglobin 12.2 g/dL (13.5-17.5); Mean Corpuscular Hemoglobin 29.7 pg (28.0-32.0); Mean Corpuscular Volume 87.0 fL (80.0-100.0); Nucleated Red Blood Cells % 0.1 %
[2025-09-13 07:08] LABS: Alanine Aminotransferase 10 U/L (7-40); Albumin 3.8 g/dL (3.2-4.8); Alkaline Phosphatase 80 U/L (46-116); Anion Gap 13 (5-15); BUN/Creatinine Ratio 9.8 (10.0-20.0); Blood Urea Nitrogen 12 mg/dL (9-23); Carbon Dioxide 24 mmol/L (20-31); Chloride 105 mmol/L (98-107); Potassium 3.7 mmol/L (3.5-5.1); Sodium 142 mmol/L (136-145); Total Protein 6.4 g/dL (5.7-8.2)
[2025-09-13 07:09] LABS: Bilirubin, Total 0.4 mg/dL (0.2-1.0)
[2025-09-13 07:13] LABS: Calcium 8.4 mg/dL (8.7-10.4); Glucose 71 mg/dL (74-106)
--- NOTE | 2025-09-13 14:10 | DVHPNRES ---
Progress Note Date Seen: Sep 13, 2025 Resident Creating Document: DENIA PORTER RESIDENT Medical Necessity Reason Pt with a Central, PICC or Fol: No Subjective Review of Systems Patient was seen today at bedside, Labs and chart reviewed Ordered ultrasound of the left lower extremity to rule out DVT Pending vascular consult for peripheral arterial disease of the left lower extremity ELVIS resolved Objective vital signs Vital Sign Date Time Temp Pulse Resp B/P (MAP) Pulse Ox O2 Delivery O2 Flow Rate FiO2 09/13/25 13:00 97.0 107 16 144/91 (108) 100 97.0 09/13/25 08:00 Room Air* 0 21 Total Intake and Output 09/12/25 09/12/25 09/13/25 15:00 23:00 07:00 Intake Total 900 ml 300 ml Output Total 450 ml Balance 450 ml 300 ml medications Current Medications Medications Dose Ordered Sig/Niesha Route Start Time Stop Time Status Last Admin Dose Admin Acetaminophen 325 mg Q4HP PRN PO 09/09/25 18:45 09/12/25 19:45 325 MG Ondansetron HCl 4 mg Q4HP PRN IV 09/09/25 18:45 Morphine Sulfate 2 mg Q4HPRN PRN IV 09/09/25 18:45 09/11/25 21:27 2 MG Enoxaparin Sodium 40 mg DAILY SC 09/10/25 10:00 09/13/25 10:33 40 MG Diagnostic Test (Pha) 1 strip Q6HR 09/10/25 00:00 09/13/25 12:02 1 STRIP Insulin Human Regular Q6HR SC 09/10/25 00:00 09/13/25 12:02 2 UNITS Dextrose 50 ml UD PRN IV 09/09/25 18:45 Cefepime HCl 50 ml @ 12.5 mls/hr Q12H IV 09/10/25 21:00 09/13/25 08:38 12.5 MLS/HR Linezolid 300 ml @ 150 mls/hr Q12HR IV 09/09/25 22:00 09/13/25 10:33 150 MLS/HR Pantoprazole Sodium 40 mg DAILY PO 09/10/25 10:00 09/13/25 10:33 40 MG Quetiapine Fumarate 100 mg HS PO 09/10/25 22:00 09/12/25 22:28 100 MG Aspirin 81 mg DAILY PO 09/10/25 10:00 09/13/25 10:33 81 MG Folic Acid 1 mg DAILY PO 09/10/25 10:00 09/13/25 10:33 1 MG Insulin Glargine 30 units HS SC 09/11/25 22:00 09/12/25 22:20 30 UNITS Examination General examination- awake, alert, oriented HEENT- PEERLA, no acute nasal discharge Cardiovascular- S1-S2 audible, rate and rhythm regular, no murmur Respiratory- CTAB, no wheeze or rhonchi Gastrointestinal-nontender, bowel sound+. Nondistended Musculoskeletal-no acute joint swelling or tenderness or redness Lower extremity- left leg ulcer, status post right foot digital amputation Neurological- cranial nerves intact, no acute dysarthria or dysphagia Psychiatry- denies depression or SI or HI Skin- no acute rash or purpura laboratory and microbiology Laboratory Tests 09/13/25 05:55 Test 09/13/25 05:55 Range/Units Serum Glucose 71 L 74-106 mg/dL Microbiology Date/Time Source Procedure Growth Status 09/10/25 08:23 Nose MRSA Screen - Final Complete 09/10/25 08:00 Voided Urine Urine Culture - Final Complete 09/09/25 19:11 Blood Blood Culture - Preliminary NO GROWTH AFTER 72 HOURS OF INCUBATION. Resulted Problem List/Assessment/Plan Problem List/Assessment/Plan ASSESSMENT AND PLAN Peripheral arterial disease (PAD) of the left lower extremity Left foot soft tissue ulceration Possible Achilles tendinopathy s/p Right above the knee amputation on right limb Sepsis likely due to above Echocardiogram: Difficult acoustic sinus rhythm. Limited views obtained. Valves appear to be structurally normal. Left ventricular function is preserved at 55% with normal RV function. Doppler is unremarkable. No pericardial effusion masses or vegetations. Lower Extremity CT: Dense arterial calcification. No acute osseous abnormality. Soft tissue thickening along the course of the achilles tendon, may be due to tendinopathy. Extremity Arterial Study: Findings consistent with hemodynamically significant stenosis /occlusion involving the left dorsalis pedis artery. Foot X-Ray: There is no evidence of acute fracture or dislocation. Possible soft-tissue ulceration of the posterior aspect of the foot. No radiographic findings of osteomyelitis. Vascular atherosclerotic calcifications are present. Single Organ Ultrasound: Unremarkable sonographic study of the right upper quadrant of the abdomen. Chest X-Ray: No acute cardiopulmonary disease. 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 Mckee Plan discussed with: Patient Plan discussed with: Patient, Other (RN) Date of Service: Sep 13, 2025 Billing Provider: RODNEY MCKEE MD Common Visit Codes: [id number] INP/OBS CARE(HIGH) DENIA PORTER RESIDENT Sep 13, 2025 14:10 RODNEY MCKEE MD Sep 16, 2025 21:28
--- NOTE | 2025-09-13 18:37 | DVH ---
LEFT LOWER EXTREMITY PAIN AND EDEMA LOWER EXTREMITY VENOUS DUPLEX REASON FOR EXAMINATION: Left lower extremity pain and edema COMPARISON: US LT LOW EXT ART DUPLEX on DOS: 09/10/25, US RT UPPER DVT on DOS: 03/18/25 TECHNIQUE: Using real-time freeze-frame technique with a high-frequency transducer, multiple longitudinal and transverse sections were obtained. Simultaneous color flow and spectral Doppler imaging was performed. The veins from the popliteal fossa to the groin were evaluated. FINDINGS: There is good visualization of the deep venous system with no intraluminal filling defects identified. Normal venous compressibility is seen and there is flow augmentation. Color flow Doppler imaging is unremarkable. IMPRESSION: NO EVIDENCE OF FEMOROPOPLITEAL DEEP VENOUS THROMBOSIS.
[2025-09-14] VITALS (8 sets, daily range): BP systolic 94–144; BP diastolic 54–90; PULSE 82–111; RESP 16–20; TEMP 96.1–98.2; O2SAT 94–100
[2025-09-14 08:09] LABS: Hematocrit 35.7 % (41.0-53.0); Hemoglobin 11.7 g/dL (13.5-17.5); Mean Corpuscular Hemoglobin 28.6 pg (28.0-32.0); Mean Corpuscular Volume 87.3 fL (80.0-100.0); Nucleated Red Blood Cells % 0.1 %
[2025-09-14 08:25] LABS: Alanine Aminotransferase 16 U/L (7-40); Albumin 3.8 g/dL (3.2-4.8); Alkaline Phosphatase 83 U/L (46-116); Anion Gap 14 (5-15); BUN/Creatinine Ratio 7.6 (10.0-20.0); Blood Urea Nitrogen 12 mg/dL (9-23); Carbon Dioxide 20 mmol/L (20-31); Chloride 103 mmol/L (98-107); Potassium 3.7 mmol/L (3.5-5.1); Sodium 137 mmol/L (136-145); Total Protein 6.4 g/dL (5.7-8.2)
[2025-09-14 08:27] LABS: Bilirubin, Total 0.3 mg/dL (0.2-1.0); Calcium 8.6 mg/dL (8.7-10.4); Glucose 210 mg/dL (74-106)
[2025-09-14] MEDS ORDERED: DEXTROSE (50%) 50ML SYRG IV PRN (10:30)
--- NOTE | 2025-09-14 11:38 | DVHPNRES ---
Progress Note Date Seen: Sep 14, 2025 Resident Creating Document: UNIQUE TRAORE Medical Necessity Reason Pt with a Central, PICC or Fol: No Subjective Review of Systems This is a 59-year-old male who has past medical history of HTN, T2DM, CKD, CVA, Bipolar disorder, schizophrenia and questionable liver cirrhosis. The patient was sent from his continuity clinic to the [facility] ED for evaluation of hypotension. He reports multiple episodes of non-bloody vomiting with food content and associated nausea that began on Monday. He also complains of a non-healing left ankle wound for 3.5 years, which has been gradually improving with home health care. At 6:37 PM, the patient met criteria for sepsis, and sepsis protocol was initiated. On evaluation in the ED, patient is afebrile, vitals are stable, blood pressure was 117/65 mmHg. Initial labs show normocytic anemia, creatinine 1.75 and serum glucose 271. Foot X-ray shows possible soft-tissue ulceration of the posterior aspect of the foot and vascular atherosclerotic calcifications. The patient was started on IV antibiotics and IV fluids. Patient is admitted for further evaluation and management. On 09/11/25, Patient was seen and examined at bedside. Overnight events were reviewed. The patient reports improvement in his symptoms. Patient is afebrile, tachycardic and hypertensive (145/93 mmHg). Labs show normocytic anemia, serum 206. A wound consult was received for the patients left foot wound. On 09/12/25, Patient was seen and examined at bedside. Overnight events were reviewed. The patient has no new complaints. Vascular surgery consult is still pending. On 09/14/25, Patient was seen today at bedside. Labs and chart were reviewed. An ultrasound of the left lower extremity shows no evidence of femoropopliteal deep vein thrombosis. Vascular consult is pending for evaluation of peripheral arterial disease of the left lower extremity. Acute kidney injury has resolved. Past medical history: Hypertension, dyslipidemia, diabetes, diabetic feet status post dwguw-[id number]-[id number] amputation of right limb and requires home health services for left ankle, thyroid disease, chronic kidney disease, patient believes he has alcoholic liver cirrhosis but imaging ruled it out, bipolar disorder/schizophrenia, CVA Surgical history: Right whhzk-uky-diis amputation Family history: Mother had heart disease Social history: Lives in [place] with family (next of kin is Kareem, cousin). Ex ethanol abuse (three bottles of Tequila per day for25 years) quit15 years ago. Denies current tobacco, alcohol and other drug abuse Allergies: Denies Home medication: Denies Patient seen and examined at bedside. Patient is alert and oriented to time, place person and responding to all questions. Constitutional: Chills, sore throat Eyes: No Pain, No Vision change, No Conjunctivae inflammation, No Eyelid inflammation, No Other, No Redness ENT: No Ear pain, No Ear discharge, No Nose pain, No Nose discharge, No Nose congestion, No Mouth pain, No Mouth swelling, No Throat pain, No Throat swelling, No Other Cardiovascular: No Chest Pain, No Palpitations, No Orthopnea, No Paroxysmal No Dyspnea, No Edema, No Lt Headedness, No Other Respiratory: No Cough, No Dry, No Shortness of breath, No SOB with exertion, No Wheezing, No Hemoptysis, No Pleuritic Pain, No Sputum, No Other Gastrointestinal: Nausea, Vomiting, No Abdominal Pain, No Diarrhea, No Constipation, No Melena, No Hematochezia, No Other Genitourinary: No Dysuria, No Frequency, No Incontinence, No Hematuria, No Retention, No Other Musculoskeletal: No other, No neck pain, No shoulder pain, No arm pain, No back pain, No hand pain, No leg pain, No foot pain Skin: No Rash, No Lesions, No Jaundice, No Bruising, No Other Objective vital signs Vital Sign Date Time Temp Pulse Resp B/P (MAP) Pulse Ox O2 Delivery O2 Flow Rate FiO2 09/14/25 09:00 97.5 105 18 105/73 (84) 99 97.5 09/13/25 20:00 Room Air* 0 21 Total Intake and Output 09/13/25 09/13/25 09/14/25 15:00 23:00 07:00 Intake Total 350 ml 1100 ml 800 ml Output Total 650 ml Balance 350 ml 1100 ml 150 ml medications Current Medications Medications Dose Ordered Sig/Niesha Route Start Time Stop Time Status Last Admin Dose Admin Acetaminophen 325 mg Q4HP PRN PO 09/09/25 18:45 09/13/25 19:31 325 MG Ondansetron HCl 4 mg Q4HP PRN IV 09/09/25 18:45 Morphine Sulfate 2 mg Q4HPRN PRN IV 09/09/25 18:45 09/13/25 22:27 2 MG Enoxaparin Sodium 40 mg DAILY SC 09/10/25 10:00 09/14/25 10:09 40 MG Diagnostic Test (Pha) 1 strip Q6HR 09/10/25 00:00 09/14/25 06:08 1 STRIP Insulin Human Regular Q6HR SC 09/10/25 00:00 09/14/25 00:25 4 UNITS Dextrose 50 ml UD PRN IV 09/09/25 18:45 Cefepime HCl 50 ml @ 12.5 mls/hr Q12H IV 09/10/25 21:00 09/13/25 22:04 12.5 MLS/HR Linezolid 300 ml @ 150 mls/hr Q12HR IV 09/09/25 22:00 09/13/25 22:04 150 MLS/HR Pantoprazole Sodium 40 mg DAILY PO 09/10/25 10:00 09/14/25 10:09 40 MG Quetiapine Fumarate 100 mg HS PO 09/10/25 22:00 09/13/25 22:04 100 MG Aspirin 81 mg DAILY PO 09/10/25 10:00 09/14/25 10:09 81 MG Folic Acid 1 mg DAILY PO 09/10/25 10:00 09/14/25 10:09 1 MG Insulin Glargine 30 units HS SC 09/11/25 22:00 09/13/25 22:04 30 UNITS Examination General Appearance: Cooperative. Well developed. Well nourished. NAD Head Exam: Normal inspection Neck Exam: Normal inspection. Non-tender. Normal alignment Pulmonary/Respiratory: Chest non-tender. Clear bilateral breath sounds, no crackles, no wheezing. Cardiovascular/Chest: Regular rate and rhythm. No murmurs. No JVD. Peripheral Pulses: 2+ Radial (R). 2+ Radial (L). 2+ Pedal (R). 2+ Pedal (L) Abdominal Exam: Normal bowel sounds. Soft. normal abdomen, no visible veins, Nontender. No hepatospenomegaly. No masses Ankle Exam: Negative ankle edema Lower extremities: Negative lower extremity edema Neuro/Mental Status: A&O x4. Coherent. Thoughts/Psych: Normal thought pattern. Appropriate mood and affect. Good judgement and insight MSK/skin exam: Mobilizes 4 limbs, has above the knee amputation on right limb. Skin is dry and warm. Dry ulcer in left ankle, mild serous secretion laboratory and microbiology Laboratory Tests 09/14/25 07:58 Test 09/14/25 07:58 Range/Units Serum Glucose 210 #H 74-106 mg/dL Microbiology Date/Time Source Procedure Growth Status 09/10/25 08:23 Nose MRSA Screen - Final Complete 09/10/25 08:00 Voided Urine Urine Culture - Final Complete 09/09/25 19:11 Blood Blood Culture - Preliminary NO GROWTH AFTER 72 HOURS OF INCUBATION. Resulted Labs and/or images reviewed: Labs reviewed by me, Image(s) reviewed by me Problem List/Assessment/Plan Problem List/Assessment/Plan Peripheral arterial disease (PAD) of the left lower extremity Left foot soft tissue ulceration Possible Achilles tendinopathy s/p Right above the knee amputation on right limb Sepsis likely due to above Echocardiogram: Difficult acoustic sinus rhythm. Limited views obtained. Valves appear to be structurally normal. Left ventricular function is preserved at 55% with normal RV function. Doppler is unremarkable. No pericardial effusion masses or vegetations. Extremity venous study: No evidence of femoropopliteal deep vein thrombosis Lower Extremity CT: Dense arterial calcification. No acute osseous abnormality. Soft tissue thickening along the course of the achilles tendon, may be due to tendinopathy. Extremity Arterial Study: Findings consistent with hemodynamically significant stenosis /occlusion involving the left dorsalis pedis artery. Foot X-Ray: There is no evidence of acute fracture or dislocation. Possible soft-tissue ulceration of the posterior aspect of the foot. No radiographic findings of osteomyelitis. Vascular atherosclerotic calcifications are present. Single Organ Ultrasound: Unremarkable sonographic study of the right upper quadrant of the abdomen. Chest X-Ray: No acute cardiopulmonary disease. 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 Mckee Plan discussed with: Patient My Orders My Orders Orders - UNIQUE TRAORE Procedure Category Date Status Time Complete Blood Count LAB 09/15/25 Verified 04:00 Comprehensive LAB 09/15/25 Verified Metabolic Panel 04:00 Date of Service: Sep 14, 2025 Billing Provider: RODNEY MCKEE MD Common Visit Codes: [id number] INP/OBS CARE(HIGH) UNIQUE TRAORE Sep 14, 2025 11:38
[2025-09-14] MEDS ORDERED: ACCU-CHEK COMFORT CURVE STRIP VI SCH (12:00)
[2025-09-14] MEDS ORDERED: InsuLIN REG 1unit/0.01ml Soln (100units/ml) SC SCH (12:00)
[2025-09-15] VITALS (8 sets, daily range): BP systolic 112–159; BP diastolic 64–100; PULSE 94–116; RESP 17–18; TEMP 97.5–98.6; O2SAT 97–100
[2025-09-15 05:19] LABS: Hematocrit 36.2 % (41.0-53.0); Hemoglobin 11.9 g/dL (13.5-17.5); Mean Corpuscular Hemoglobin 29.0 pg (28.0-32.0); Mean Corpuscular Volume 88.2 fL (80.0-100.0); Nucleated Red Blood Cells % 0.0 %
[2025-09-15 05:34] LABS: Albumin 3.7 g/dL (3.2-4.8); Alkaline Phosphatase 88 U/L (46-116); Anion Gap 11 (5-15); BUN/Creatinine Ratio 7.8 (10.0-20.0); Blood Urea Nitrogen 13 mg/dL (9-23); Calcium 8.7 mg/dL (8.7-10.4); Carbon Dioxide 22 mmol/L (20-31); Potassium 3.5 mmol/L (3.5-5.1); Sodium 142 mmol/L (136-145); Total Protein 6.3 g/dL (5.7-8.2)
[2025-09-15 05:39] LABS: Alanine Aminotransferase 9 U/L (7-40); Bilirubin, Total 0.2 mg/dL (0.2-1.0); Chloride 109 mmol/L (98-107); Glucose 119 mg/dL (74-106)
--- NOTE | 2025-09-15 13:53 | DVHPNRES ---
Progress Note Date Seen: Sep 15, 2025 Resident Creating Document: UNIQUE TRAORE Medical Necessity Reason Pt with a Central, PICC or Fol: No Subjective Review of Systems This is a 59-year-old male who has past medical history of Hypertension, dyslipidemia, diabetes, diabetic feet status post dxast-ssf-vxre amputation of right limb and requires home health services for left ankle, thyroid disease, chronic kidney disease, patient believes he has alcoholic liver cirrhosis but imaging ruled it out, bipolar disorder/schizophrenia, CVA. The patient was sent from his continuity clinic to the [facility] ED for evaluation of hypotension. He reports multiple episodes of non-bloody vomiting with food content and associated nausea that began on Monday. He also complains of a non- healing left ankle wound for 3.5 years, which has been gradually improving with home health care. At 6:37 PM, the patient met criteria for sepsis, and sepsis protocol was initiated. On evaluation in the ED, patient is afebrile, vitals are stable, blood pressure was 117/65 mmHg. Initial labs show normocytic anemia, creatinine 1.75 and serum glucose 271. Foot X-ray shows possible soft-tissue ulceration of the posterior aspect of the foot and vascular atherosclerotic calcifications. The patient was started on IV antibiotics and IV fluids. Patient is admitted for further evaluation and management. On 09/11/25, The patient reports improvement in his symptoms. Patient is afebrile, tachycardic and hypertensive (145/93 mmHg). Labs show normocytic anemia, serum 206. A wound consult was received for the patients left foot wound. On 09/12/25, The patient has no new complaints. Vascular surgery consult is still pending. On 09/14/25, An ultrasound of the left lower extremity shows no evidence of femoropopliteal deep vein thrombosis. Vascular consult is pending for evaluation of peripheral arterial disease of the left lower extremity. Acute kidney injury has resolved. On 09/15/25, Patient reports feeling better than yesterday, but continue to experience tachycardia, which is concerning for ongoing sepsis. Patient without IV access and not taking prescribed psychiatric medications. Patient repeatedly refused IV placement, telemetry monitoring, and all care. Rapid response called due to ALOC and seizure. Surgical history: Right pwdkp-lrx-tzpk amputation Family history: Mother had heart disease Social history: Lives in [place] with family (next of kin is Kareem, cousin). Ex ethanol abuse (three bottles of Tequila per day for25 years) quit15 years ago. Denies current tobacco, alcohol and other drug abuse Allergies: Denies Home medication: Denies Patient seen and examined at bedside. Patient is alert and oriented to time, place person and responding to all questions. Constitutional: Chills, sore throat Eyes: No Pain, No Vision change, No Conjunctivae inflammation, No Eyelid inflammation, No Other, No Redness ENT: No Ear pain, No Ear discharge, No Nose pain, No Nose discharge, No Nose congestion, No Mouth pain, No Mouth swelling, No Throat pain, No Throat swelling, No Other Cardiovascular: No Chest Pain, No Palpitations, No Orthopnea, No Paroxysmal No Dyspnea, No Edema, No Lt Headedness, No Other Respiratory: No Cough, No Dry, No Shortness of breath, No SOB with exertion, No Wheezing, No Hemoptysis, No Pleuritic Pain, No Sputum, No Other Gastrointestinal: Nausea, Vomiting, No Abdominal Pain, No Diarrhea, No Constipation, No Melena, No Hematochezia, No Other Genitourinary: No Dysuria, No Frequency, No Incontinence, No Hematuria, No Retention, No Other Musculoskeletal: No other, No neck pain, No shoulder pain, No arm pain, No back pain, No hand pain, No leg pain, No foot pain Skin: No Rash, No Lesions, No Jaundice, No Bruising, No Other Objective vital signs Vital Sign Date Time Temp Pulse Resp B/P (MAP) Pulse Ox O2 Delivery O2 Flow Rate FiO2 09/15/25 09:00 97.9 102 18 129/75 (93) 100 97.9 09/14/25 20:00 Room Air* 0 21 Total Intake and Output 09/14/25 09/14/25 09/15/25 15:00 23:00 07:00 Intake Total 1075 ml 200 ml Balance 1075 ml 200 ml medications Current Medications Medications Dose Ordered Sig/Niesha Route Start Time Stop Time Status Last Admin Dose Admin Acetaminophen 325 mg Q4HP PRN PO 09/09/25 18:45 09/13/25 19:31 325 MG Ondansetron HCl 4 mg Q4HP PRN IV 09/09/25 18:45 Morphine Sulfate 2 mg Q4HPRN PRN IV 09/09/25 18:45 09/13/25 22:27 2 MG Enoxaparin Sodium 40 mg DAILY SC 09/10/25 10:00 09/15/25 10:00 40 MG Diagnostic Test (Pha) 1 strip Q6HR 09/10/25 00:00 09/15/25 12:00 1 STRIP Insulin Human Regular Q6HR SC 09/10/25 00:00 09/15/25 12:00 3 UNITS Dextrose 50 ml UD PRN IV 09/09/25 18:45 Cefepime HCl 50 ml @ 12.5 mls/hr Q12H IV 09/10/25 21:00 09/13/25 22:04 12.5 MLS/HR Linezolid 300 ml @ 150 mls/hr Q12HR IV 09/09/25 22:00 09/13/25 22:04 150 MLS/HR Pantoprazole Sodium 40 mg DAILY PO 09/10/25 10:00 09/15/25 10:00 40 MG Quetiapine Fumarate 100 mg HS PO 09/10/25 22:00 09/14/25 21:56 100 MG Aspirin 81 mg DAILY PO 09/10/25 10:00 09/15/25 10:00 81 MG Folic Acid 1 mg DAILY PO 09/10/25 10:00 09/15/25 10:00 1 MG Insulin Glargine 30 units HS SC 09/11/25 22:00 09/14/25 21:56 30 UNITS Examination General Appearance: Cooperative. Well developed. Well nourished. NAD Head Exam: Normal inspection Neck Exam: Normal inspection. Non-tender. Normal alignment Pulmonary/Respiratory: Chest non-tender. Clear bilateral breath sounds, no crackles, no wheezing. Cardiovascular/Chest: Regular rate and rhythm. No murmurs. No JVD. Peripheral Pulses: 2+ Radial (R). 2+ Radial (L). absent Pedal pulse on left side (L). Can not evaluate right lower limb pulses due to right jxudr-qoa-zxxj amputation Abdominal Exam: Normal bowel sounds. Soft. normal abdomen, no visible veins, Nontender. No hepatospenomegaly. No masses Ankle Exam: Negative ankle edema Lower extremities: Negative lower extremity edema Neuro/Mental Status: A&O x4. Coherent. Thoughts/Psych: Normal thought pattern. Appropriate mood and affect. Good judgement and insight MSK/skin exam: Mobilizes 3 limbs has above the knee amputation on right limb with no erythema nor discharge. Skin is dry and warm. Dry ulcer in left ankle, no secretion laboratory and microbiology Laboratory Tests 09/15/25 04:27 Test 09/15/25 04:27 Range/Units Serum Glucose 119 H 74-106 mg/dL Microbiology Date/Time Source Procedure Growth Status 09/10/25 08:23 Nose MRSA Screen - Final Complete 09/10/25 08:00 Voided Urine Urine Culture - Final Complete 09/09/25 19:11 Blood Blood Culture - Final NO GROWTH AFTER 5 DAYS OF INCUBATION. Complete Labs and/or images reviewed: Labs reviewed by me, Image(s) reviewed by me Problem List/Assessment/Plan Problem List/Assessment/Plan Peripheral arterial disease (PAD) of the left lower extremity Left foot soft tissue ulceration Possible Achilles tendinopathy s/p Right above the knee amputation on right limb Sepsis likely due to above Ruled out DVT Echocardiogram: Difficult acoustic sinus rhythm. Limited views obtained. Valves appear to be structurally normal. Left ventricular function is preserved at 55% with normal RV function. Doppler is unremarkable. No pericardial effusion masses or vegetations. Extremity venous study: No evidence of femoropopliteal deep vein thrombosis Lower Extremity CT: Dense arterial calcification. No acute osseous abnormality. Soft tissue thickening along the course of the achilles tendon, may be due to tendinopathy. Extremity Arterial Study: Findings consistent with hemodynamically significant stenosis /occlusion involving the left dorsalis pedis artery. Foot X-Ray: There is no evidence of acute fracture or dislocation. Possible soft-tissue ulceration of the posterior aspect of the foot. No radiographic findings of osteomyelitis. Vascular atherosclerotic calcifications are present. Single Organ Ultrasound: Unremarkable sonographic study of the right upper quadrant of the abdomen. Chest X-Ray: No acute cardiopulmonary disease. Wound consult Vascular consult MRSA screen: No MRSA detected Urine culture: No growth after 48 hours of incubation Blood culture: No growth after 48 hours of incubation pain management with Morphine and Tylenol Cefepime 1 GM IV q12h Zyvox 600 mg Sputum culture Protonix 40 mg IV NS 1,000 MLS/HR ONE IV NS 60 MLS/HR Aspirin 81 MG PO daily Atorvastatin 40 MG PO hs History of CVA On aspirin and atorvastatin Bipolar disorder/schizophrenia Quetiapine 100 MG PO hs Type 2 diabetes mellitus with hyperglycemia, uncontrolled Accu-check Dextrose 50 % Mild sliding scale Insulin lantus 20 Units SC hs Ordered hemoglobin A1c ELVIS hemodynamically mediated (VMN) on CKD Monitor renal function Avoid nephrotoxic drugs Questionable liver cirrhosis Intractable nausea and vomiting Ordered abdomen and pelvis CT Abdominal ultrasound on admission was within normal limits Diet: Clear liquid PUD prophylaxis: protonix 40mg DVT prophylaxis: Lovenox 40mg Goals of care: Full code, discussed for >30 minutes Plan discussed with patient Plan discussed with Dr. Mckee Plan discussed with: Patient, Other (Nurses) Date of Service: Sep 15, 2025 Billing Provider: RODNEY MCKEE MD Common Visit Codes: [id number] INP/OBS CARE(HIGH) UNIQUE TRAORE RESIDENT Sep 15, 2025 13:53 ADAMA INIGUEZ RESIDENT Sep 15, 2025 19:32
[2025-09-15] MEDS: SODIUM CHLORIDE 0.9% 1,000 ML IV SCH (14:45)
[2025-09-15] MEDS: SODIUM CHLORIDE 0.9% 1,000 ML IV ONE (14:45)
[2025-09-15] MEDS: INSULIN LANTUS (GLARGINE) 1 /0.01ml (100units/ml) SC SCH (22:00)
[2025-09-15 22:40] LABS: Hemoglobin 12.2 g/dL (13.5-17.5)
[2025-09-15 22:41] LABS: Hematocrit 37.9 % (41.0-53.0); Mean Corpuscular Hemoglobin 29.2 pg (28.0-32.0); Mean Corpuscular Volume 90.4 fL (80.0-100.0); Nucleated Red Blood Cells % 0.2 %
[2025-09-15 23:00] LABS: Alanine Aminotransferase 14 U/L (7-40); Albumin 4.1 g/dL (3.2-4.8); Alkaline Phosphatase 97 U/L (46-116); Anion Gap 22 (5-15); BUN/Creatinine Ratio 10.6 (10.0-20.0); Blood Urea Nitrogen 15 mg/dL (9-23); Calcium 9.1 mg/dL (8.7-10.4); Chloride 103 mmol/L (98-107); Magnesium 1.7 mg/dL (1.6-2.6); Potassium 4.2 mmol/L (3.5-5.1); Sodium 140 mmol/L (136-145); Total Protein 6.8 g/dL (5.7-8.2)
[2025-09-15 23:01] LABS: Bilirubin, Total 0.3 mg/dL (0.2-1.0)
[2025-09-15 23:09] LABS: Carbon Dioxide 15 mmol/L (20-31); Glucose 212 mg/dL (74-106)
[2025-09-15 23:13] LABS: Lactic Acid w/Reflex 11.3 mmol/L (0.4-2.0)
[2025-09-15] MEDS: ATORVASTATIN 20 MG TAB PO SCH (23:17)
[2025-09-15 23:54] LABS: Base Excess -2.5 mmol/L (-2.0-3.0)
[2025-09-16] VITALS (22 sets, daily range): BP systolic 90–159; BP diastolic 48–81; PULSE 83–105; RESP 11–22; TEMP 97.9–99.6; O2SAT 97–100
[2025-09-16] MEDS: SODIUM CHLORIDE 0.9% 1,000 ML IV ONE (00:14)
[2025-09-16 00:40] LABS: Lipase 31.0 U/L (12-53)
[2025-09-16 00:41] LABS: Magnesium 1.7 mg/dL (1.6-2.6)
[2025-09-16 00:42] LABS: Creatine Kinase IFCC 71.0 U/L (46-171)
[2025-09-16] MEDS: SODIUM CHLORIDE 0.9% 1,000 ML IV SCH (00:55)
[2025-09-16] MEDS: LORazepam 2MG/ML-1ML VIAL IV PRN (01:35)
--- NOTE | 2025-09-16 01:48 | RESUS ---
CODE ASSIST ASSESSSMENT Initial Information Code Assist Date: Sep 15, 2025 Code Assist Time: 21:51 Location of Arrest: [facility] Room # 274-B Provider Name Dr. Chavira and Vijay GOLDEN Crash Cart Opened and Supplies: No Situation Staff concerned/worried, speci: Change LOC Situation comment: Patient was found altered, unable to answer any questions, possibly seizing Background Background: Aaron Del Angel is a 59-year-old male patient who presents to the ED sent from [facility] clinic due to asymptomatic hypotension. Patient reports multiple episodes of nonbloody vomiting with food content emesis, and nausea. Patient also complains of left ankle nonhealing wound, which has been progressively improving with home health services. Denies any other associated symptom. Assessment Temperature (Fahrenheit): 98.6 Blood Pressure Systolic: 146 Blood Pressure Diastolic: 85 Respiratory Rate: 18 O2 Sat by Pulse Oximetry: 98 Bedside Blood Glucose: 182 Recommendations/Interventions Procedures: Accu check, ABG, CMP, CBC, Suctioned, O2 Mask/NC Outcome Outcome: Transfer to Stepdown Team Members Team Members Dr. Chavira, Dr. Krishnamurthy, Vijay UTILITY CLERK, Patria RN, Freddy RN, Jade RN, Shazia RN, MUNIRA Castano Sep 16, 2025 01:48
--- NOTE | 2025-09-16 04:13 | DVH ---
Exam: CT CT AB PEL WO CON-NO ORAL OR IV History: Intractable nausea and vomiting Comparison Study: CT CT AB PEL WO CON-NO ORAL OR IV on DOS: 03/15/25 TECHNIQUE: Multidetector CT of the abdomen and pelvis was performed from lung bases to pubic symphysis. Imaging was performed without IV contrast. Axial, coronal, and sagittal multiplanar reformats were obtained from the axial data set by the technologist. RADIATION DOSE: CTDI vol 14.4 mGy. DLP 1623.7 mGy.cm Findings: Limited evaluation of the solid organs in the absence of IV contrast. Evaluation is also degraded by Motion artifact. Lungs: Unremarkable. Liver: Unremarkable. Spleen: Nonspecific punctate calcifications. Pancreas: Unremarkable. Gallbladder: Unremarkable. Adrenals: Unremarkable Kidneys: Unremarkable. Pelvic Viscera: Unremarkable. Vasculature: Atherosclerotic aortoiliac calcification. Retroperitoneum: Unremarkable. Bowel: No bowel obstruction. The appendix is normal. Abnormal lucency/ possible artifact is seen in the region of the stomach, correlate with procedural history. Musculoskeletal: Unremarkable. Soft tissues: Subcutaneous air is seen within the left ventral abdominal wall, correlate for recent injection history. Impression: 1. No acute abdominopelvic abnormality. 2. Abnormal lucency/ possible artifact is seen in the region of the stomach, correlate with procedural history. 3. Incidental findings as detailed.
[2025-09-16] MEDS: CEFEPIME 1GM/50ML 50 ML IV SCH (05:52)
[2025-09-16 06:03] LABS: Hematocrit 33.2 % (41.0-53.0); Hemoglobin 11.1 g/dL (13.5-17.5); Mean Corpuscular Hemoglobin 29.0 pg (28.0-32.0); Mean Corpuscular Volume 86.5 fL (80.0-100.0); Nucleated Red Blood Cells % 0.0 %
[2025-09-16 06:13] LABS: Chloride 105 mmol/L (98-107); Potassium 4.2 mmol/L (3.5-5.1); Sodium 141 mmol/L (136-145)
[2025-09-16 06:14] LABS: Anion Gap 11 (5-15); Carbon Dioxide 25 mmol/L (20-31)
[2025-09-16 06:19] LABS: BUN/Creatinine Ratio 9.8 (10.0-20.0); Blood Urea Nitrogen 11 mg/dL (9-23)
[2025-09-16 06:22] LABS: Calcium 8.6 mg/dL (8.7-10.4); Glucose 174 mg/dL (74-106)
[2025-09-16 09:00] LABS: Alanine Aminotransferase 11 U/L (7-40); Albumin 3.8 g/dL (3.2-4.8); Alkaline Phosphatase 88 U/L (46-116); Total Protein 6.4 g/dL (5.7-8.2)
[2025-09-16 09:03] LABS: Bilirubin, Direct < 0.1 mg/dL (<0.3); Bilirubin, Total 0.3 mg/dL (0.2-1.0)
--- NOTE | 2025-09-16 09:04 | DVHPNRES ---
Progress Note Date Seen: Sep 16, 2025 Resident Creating Document: ADAMA INIGUEZ RESIDENT Medical Necessity Reason Pt with a Central, PICC or Fol: Yes The following are medically ne: Roach Catheter Subjective Review of Systems Aaron Del Angel is a 59-year-old male patient who presents to the ED sent from [facility] clinic due to asymptomatic hypotension. Patient reports multiple episodes of nonbloody vomiting with food content emesis, and nausea. Patient also complains of left ankle nonhealing wound, which has been progressively improving with home health services. Denies any other associated symptom. Past medical history: Hypertension, dyslipidemia, diabetes, diabetic feet status post mtzna-lnt-iosn amputation of right limb and requires home health services for left ankle, thyroid disease, chronic kidney disease, patient believes he has alcoholic liver cirrhosis but imaging ruled it out, bipolar disorder/schizophrenia, CVA Surgical history: Right amutt-pxd-beqo amputation Family history: Mother had heart disease Social history: Lives in [place] with family (next of kin is Kareem, cousin). Ex ethanol abuse (three bottles of Tequila per day for25 years) quit15 years ago. Denies current tobacco, alcohol and other drug abuse Allergies: Denies Home medication: Denies Patient seen and examined at bedside. Upgraded last night to telemetry due to metabolic encephalopathy complicated with seizures, patient had been refusing medical treatment for the past 48 hours (refused antibiotics and IV fluids). Patient is hemodynamically stable after receiving medical treatment, can be downgraded to telemetry status today. Objective vital signs Vital Sign Date Time Temp Pulse Resp B/P (MAP) Pulse Ox O2 Delivery O2 Flow Rate FiO2 09/16/25 08:00 99.0 84 21 98/58 (71) 100 99.0 09/16/25 07:49 Room Air* 0 21 Total Intake and Output 09/15/25 09/15/25 09/16/25 15:00 23:00 07:00 Intake Total 1350 ml 700 ml Output Total 1200 ml Balance 150 ml 700 ml medications Current Medications Medications Dose Ordered Sig/Niesha Route Start Time Stop Time Status Last Admin Dose Admin Acetaminophen 325 mg Q4HP PRN PO 09/09/25 18:45 09/13/25 19:31 325 MG Ondansetron HCl 4 mg Q4HP PRN IV 09/09/25 18:45 Morphine Sulfate 2 mg Q4HPRN PRN IV 09/09/25 18:45 09/13/25 22:27 2 MG Enoxaparin Sodium 40 mg DAILY SC 09/10/25 10:00 09/15/25 10:00 40 MG Diagnostic Test (Pha) 1 strip Q6HR 09/10/25 00:00 09/16/25 05:53 1 STRIP Insulin Human Regular Q6HR SC 09/10/25 00:00 09/16/25 05:53 3 UNITS Dextrose 50 ml UD PRN IV 09/09/25 18:45 Linezolid 300 ml @ 150 mls/hr Q12HR IV 09/09/25 22:00 09/16/25 00:10 150 MLS/HR Pantoprazole Sodium 40 mg DAILY PO 09/10/25 10:00 09/15/25 10:00 40 MG Quetiapine Fumarate 100 mg HS PO 09/10/25 22:00 09/15/25 23:16 100 MG Aspirin 81 mg DAILY PO 09/10/25 10:00 09/15/25 10:00 81 MG Folic Acid 1 mg DAILY PO 09/10/25 10:00 09/15/25 10:00 1 MG Insulin Glargine 20 units HS SC 09/15/25 22:00 Atorvastatin Calcium 40 mg HS PO 09/15/25 22:00 09/15/25 23:17 40 MG Sodium Chloride 1,000 ml @ 100 mls/hr Q10H IV 09/15/25 23:30 09/16/25 00:55 100 MLS/HR Lorazepam 1 mg Q5MINP PRN IV 09/16/25 00:00 09/16/25 01:35 1 MG Cefepime HCl 50 ml @ 12.5 mls/hr Q12H IV 09/16/25 06:00 09/16/25 05:52 12.5 MLS/HR Examination Patient lying in bed, in no acute distress General: Lucid, afebrile, mucosae are moist Cardiovascular: Normal S1 and S2. No murmurs, gallops or rubs Respiratory: Normal ventilation mechanics. Clear lung sounds on auscultation Abdomen: Soft, nontender, no organomegaly, normal bowel sounds MSK/skin: Mobilizes 4 limbs, has above the knee amputation on right limb. Skin is dry and warm. Ulcer in left ankle, mild serous secretion Neurological: Oriented in 3 spheres. No motor no sensitive deficits. Pupils are isocoric and reactive laboratory and microbiology Laboratory Tests 09/16/25 05:27 Test 09/16/25 05:27 Range/Units Serum Glucose 174 H 74-106 mg/dL Microbiology Date/Time Source Procedure Growth Status 09/10/25 08:23 Nose MRSA Screen - Final Complete 09/10/25 08:00 Voided Urine Urine Culture - Final Complete 09/09/25 19:11 Blood Blood Culture - Final NO GROWTH AFTER 5 DAYS OF INCUBATION. Complete Problem List/Assessment/Plan Problem List/Assessment/Plan Metabolic encephalopathy secondary to sepsis Breakthrough seizures Hyperlacticacidemia Noncompliance Patient was refusing medical treatment for the past 48 hours (removed peripheral IV and refused IV antibiotics and IV fluids). Patient progressed to metabolic encephalopathy secondary to sepsis due to probable nonhealing left ankle wound, requiring upgrade to D OU status. Ordered head CT which preliminary shows no intracranial bleeding (pending final report) Ordered abdomen and pelvis CT which shows no acute findings. Ordered HIV, syphilis and vitamin B12, on within normal range. Switch cefepime to ceftriaxone. Sepsis probably secondary to nonhealing left ankle wound Diabetic feet - status post right blekx-roc-qlng amputation Possible Achilles tendinopathy Rule out osteomyelitis Consulted Podiatry integrated specialist on board Could not obtain wound cultures since wound was dry Ruled out mesenteric ischemia Unlikely liver cirrhosis Intractable nausea and vomiting Ordered abdomen and pelvis CT Abdominal ultrasound on admission was within normal limits Ordered abdominal and pelvis Angio CT which ruled out mesenteric ischemia, does present ptozvsno-cx-kuparm right common iliac and femoral artery stenosis, this is lower limb that has a hnzkb-rvm-astn amputation. Completed abdomen ultrasound which showed no acute findings Peripheral artery disease Ruled out DVT Completed arterial duplex ultrasound of left lower limb which shows significant stenosis of left dorsalis pedis artery. Consulted vascular surgeon who recommends medical treatment. Lower Extremity CT: Dense arterial calcification. No acute osseous abnormality. Soft tissue thickening along the course of the achilles tendon, may be due to tendinopathy. Lower limb ultrasound ruled out DVT completed Currently on aspirin and atorvastatin Ordered abdominal and pelvis Angio CT which ruled out mesenteric ischemia, does present flvtuuef-hy-gitilh right common iliac and femoral artery stenosis, this is lower limb that has a mwtku-ajb-hlts amputation. ELVIS hemodynamically mediated (VMN) on CKD Hyperkalemia - Resolved Normocytic anemia Indicated IV fluid Avoid nephrotoxic medication Hypertension Dyslipidemia Diabetes Ordered echocardiogram which showed LVEF 55% and normal RV function. Gave advice on healthy lifestyle habits On Lantus 20 units subcutaneous in mild insulin sliding scale Ruled out Hypothyroidism TSH within normal limits Ex ethanol abuse Counseled on continuing cessation History of CVA On aspirin and atorvastatin Bipolar disorder/schizophrenia Quetiapine 100 MG PO hs Goals of care discussed with patient for over 18 minutes: Full code status Discussed plan with Dr. Mckee, patient and nurses: Patient in [facility] due to seizures in metabolic encephalopathy. Patient was refusing medical therapy for the past 48 hours. Patient is now on IV antibiotics and IV fluids, responded favorably. We will downgrade to telemetry. Consulted podiatry, obtained angio CT of abdomen which ruled out mesenteric ischemia, pending left foot MRI to evaluate osteomyelitis. Patient has poor prognosis Critical care time spent including discussion with nursing and patient, excluding procedures: 73 minutes. Plan discussed with: Patient, Other (Nurses) My Orders My Orders Orders - ADAMA INIGUEZ RESIDENT Procedure Category Date Status Time Insulin Lantus PHA 09/15/25 In Process (Glargine) (Lantus) 22:00 Atorvastatin (Lipitor) PHA 09/15/25 In Process 22:00 Ct Ab Pel Wo Con-No CT 09/15/25 Resulted Oral Or Iv 18:[address] 09/15/25 Taken 21:56 Abg W/ Co-Ox RT 09/15/25 Logged 23:34 Cefepime 1gm/50ml PHA 09/16/25 In Process (Maxipime 1gm/50ml) 06:00 Blood Culture MIRIAN 09/16/25 Logged 08:21 Wound Culture W/ Gs MIRIAN 09/16/25 Logged 08:21 Urine Bacterial MIRIAN 09/16/25 Logged Culture 08:21 Respiratory Culture MIRIAN 09/16/25 Logged W/ Gs 08:21 Covid19 Antigen Amanda LAB 09/16/25 Logged Rapid Influenza A&B LAB 09/16/25 Logged 08:21 Mrsa Screen MIRIAN 09/16/25 Logged 08:21 Ct Angio Abd Aorta W CT 09/16/25 Transmitted Run Off 09:00 Mri L Foot Wo Contrast MRI 09/16/25 Transmitted 09:00 Treponema Pallidum LAB 09/16/25 Transmitted Antibody 09:00 Vitamin B12 LAB 09/16/25 Transmitted 09:00 Hiv 1&2 Antibody LAB 09/16/25 Transmitted 09:00 Ceftriaxone Ivpb PHA 09/16/25 Transmitted Rocephin 09:00 Dietary Evaluation Review Comments: Advance diet to 2GNA CCHO-60 diet Monitorr PO intakes Expected Outcomes/Goals: controlled DM, prevent uremic syndrome Date of Service: Sep 16, 2025 Billing Provider: RODNEY MCKEE MD Common Visit Codes: [id number] INP/OBS CARE(HIGH) ADAMA INIGUEZ RESIDENT Sep 16, 2025 09:04
--- NOTE | 2025-09-16 09:15 | DVHINCON2 ---
Date of service: Sep 16, [address] Krishnamurthy Reason for Consultation New onset seizure History of Present Illness Mr. Del Angel is 59 years old gentleman with a history of hypertension, diabetes, chronic kidney failure, stroke, peripheral arterial disease, schizophrenia, bipolar disorder, questionable liver cirrhosis, he came to the [facility] on 09/09/2025 with a chief complaint of hypotension. At that time, he is alert, oriented to person, place, he knows year, but is very poor historian, he sometimes does not answer my questions properly According to his nurse chart review, at 09/15/252150, he suddenly not able to answer questions, eyes staring forward, chart mentioned in the patient's was alert. Seizure was suspected In the hospital, his blood pressure fluctuates UDS, 09/10/2025: Negative Urinalysis, 09/10/2025: Unremarkable WBC/HB/PLT/MCV, 09/16/2025: 7.9/11.1/408/86.5 BMP 09/16/2025: Unremarkable Lactic acid, 09/16/2025: 6.4, 1.4 Liver function tests, 08/17/2025: Unremarkable Ammonia, 09/09/2025: 14 TG/HDL/LDL/HDL, 09/09/25: 209/137/67/38 Vitamin B12, 09/09/2025: 1353 CT head, 09/15/2025: Reports pending Past Medical History Hypertension, diabetes, chronic kidney failure, stroke, peripheral arterial disease, schizophrenia, bipolar disorder, questionable liver cirrhosis Past Surgical History Right AKA Family History: Patient reports no known family medical history. Family History Patient is a poor historian Social History He denies a history of tobacco smoking, drug alcohol abuse Allergies: Coded Allergies: Egg Solids, Whole (Verified Allergy, Intermediate, VOMITING, 08/08/25) Home Meds Active Scripts Pantoprazole Sodium Sesquihydr (Pantoprazole Sodium) 40 Mg Tab, 40 MG PO DAILY for 7 Days, #7 TAB Prov:PRANAY YAN RESIDENT 09/05/25 Insulin Lispro (Humalog Kwikpen) 100 Unit/Ml Inj, 5 UNIT SC AC for 60 Days, #1 INJ Prov:PRANAY YAN RESIDENT 09/05/25 Insulin Aspart (Novolog Flexpen Relion) 100 Unit/Ml Inj, 1-10 UNIT SC TIDWM PRN, #1 INJ 1 Refill QL143=9tbha; 180=4u; 240=6u; 300=8u; 350=10u; >400-12u+ED Prov:SUKI ARAUJO MD 08/05/25 Insulin Glargine (Lantus Solostar) 100 Unit/Ml Inj, 15 UNIT SC BID for 30 Days, #3 INJ 1 Refill Prov:SUKI ARAUJO MD 08/05/25 Reported Medications Hydrocodone-Acetaminophen (Hydrocodone Bitartrate/AC 10-325 mg) 1 Tab Tab, 1 TAB PO Q8HPRN PRN for PAIN SCALE 7 THRU 10, TAB 08/08/25 Aspirin (Aspirin Low Dose) 81 Mg Chw, 1 TAB PO DAILY, #30 TAB 3 Refills 08/08/25 Baclofen (Baclofen) 20 Mg Tab, 1 TAB PO BIDP PRN for FOR MUSCLE SPASM for 50 Days, #100 04/02/25 Gabapentin (Gabapentin) 400 Mg Cap, 1 CAP PO TID for 90 Days, #270 04/02/25 Hydroxyzine HCl (Hydroxyzine Hydrochloride) 50 Mg Tab, 1 TAB PO TIDP PRN for ANXIETY for 30 Days, #90 04/02/25 Metoprolol Tartrate (LOPRESSOR TABLET) 50 Mg Tb, 1 TAB PO BID for 30 Days, #60 04/02/25 Amlodipine Besylate (Amlodipine Besylate) 10 Mg Tab, 1 TAB PO DAILY for 30 Days, #30 04/02/25 Olanzapine (OLANZAPINE) 2.5 Mg Tab, 1 TAB PO QPM for 30 Days, #30 04/02/25 Fluoxetine HCl (Fluoxetine HCl) 20 Mg Cap, 2 CAP PO QAM for 30 Days, #60 04/02/25 Apixaban Base (ELIQUIS) 5 Mg Tab, 1 TAB PO BID for 90 Days, #180 03/15/25 Ertugliflozin l-Pyroglutamic A (Steglatro) 5 Mg Tab, 1 TAB PO DAILY IN AM for 90 Days, #90 03/15/25 Quetiapine Fumerate (QUETIAPINE FUMARATE) 100 Mg Tab, 1 TAB PO HS for 30 Days, #30 03/15/25 Folic Acid (Folic Acid) 1 Mg Tab, 1 TAB PO DAILY for 90 Days, #90 03/15/25 Temazepam (Temazepam) 30 Mg Cap, 1 CAP PO HS for INSOMNIA for 30 Days, #30 03/15/25 Atorvastatin Calcium (ATORVASTATIN CALCIUM) 20 Mg Tab, 1.5 TAB PO DAILY for 90 Days, #135 30 MG PO IN THE MORNING 03/15/25 Losartan Potassium (Losartan Potassium) 50 Mg Tab, 1 TAB PO DAILY@BREAKFAST for 90 Days, #90 HOLD FOR BP < 110 OR HR <60 03/15/25 Current Medications Current Medications Medications (Trade) Dose Ordered Sig/Niesha Route PRN Reason Start Time Stop Time Status Last Admin Insulin Glargine (Lantus) 20 units HS SC 09/15/25 22:00 Sodium Chloride 1,000 ml @ 60 mls/hr [id number] IV 09/15/25 14:45 09/15/25 23:30 DC Atorvastatin Calcium (Lipitor) 40 mg HS PO 09/15/25 22:00 09/15/25 23:17 Sodium Chloride 1,000 ml @ 100 mls/hr Q10H IV 09/15/25 23:30 09/16/25 00:55 Lorazepam (Ativan Inj) 1 mg Q5MINP PRN IV SEIZURES 09/16/25 00:00 09/16/25 01:35 Cefepime HCl 50 ml @ 12.5 mls/hr Q12H IV 09/16/25 06:00 09/16/25 09:03 DC 09/16/25 05:52 Ceftriaxone Sodium 50 ml @ 100 mls/hr DAILY@09 IV 09/16/25 09:00 UNV Magnesium Sulfate/ Dextrose 100 ml @ 100 mls/hr Q1HR IV 09/16/25 10:00 09/16/25 11:59 UNV Magnesium Sulfate/ Dextrose 100 ml @ 100 mls/hr Q1HR IV 09/16/25 10:00 09/16/25 11:59 UNV Review of Systems As above, the other systems are negative Vital Signs Vital Signs Date Time Temp Pulse Resp B/P (MAP) Pulse Ox O2 Delivery O2 Flow Rate FiO2 09/16/25 08:00 99.0 84 21 98/58 (71) 100 99.0 09/16/25 07:49 Room Air* 0 21 Physical Exam GENERAL EXAM: General: the patient is well developed and nourished. No acute distress. HEENT: Normocephalic, neck is supple, no carotid bruits. No mass. RESPIRATORY: Normal respiratory effort with symmetrical lung expansion. Lungs clear to auscultation. CARDIOVASCULAR: Regular rate and rhythm with no murmurs. S1, S2. ABDOMEN: Soft, nontender, normal bowel sound MUSCULOSKELETAL EXAM: Status post right AKA NEUROLOGICAL: MENTAL STATUS: Awake and alert. Oriented to person, place, he knows year, poor historian SPEECH, LANGUAGE, HIGHER CORTICAL FUNCTION: no aphasia or dysathria. CRANIAL NERVES: #2: Intact visual canas to confrontation. The optic discs were sharp #3,4,6: Pupils are equal, round and reactive. EOMs full and conjugate. No nystagmus. #5: Facial sensation intact in all three divisions bilaterally. Mandibular strength intact. #7: Facial muscles symmetrical and strength intact. #8: Hearing grossly normal to voice. #9,10: Uvula and soft palate rise in the midline. Swallow and voice are normal. #11: Trapezius and sternomastoid strength intact bilaterally. #12: Tongue midline. No fasciculations or atrophy. SENSATION: Sensation to touch and pinprick is unremarkable MOTOR: Normal tone in the upper and lower extremity. Normal muscle bulk. No fasciculations. No abnormal movements or posturing. Muscle strength of the major groups in the upper extremities is 5/5. Muscle strength of the major groups in the lower extremities is 5/5. REFLEXES: Deep tendon reflexes are symmetrical. No pathological reflexes. CEREBELLAR/COORDINATION: Finger to nose is normal bilaterally. GAIT/STATION: deferred. Labs/Diagnostic Data Labs Test 09/16/25 05:27 09/16/25 05:26 09/15/25 23:44 09/15/25 22:06 Range/Units White Blood Count 7.9 4.4-10.8 10^3/uL Red Blood Count 3.83 L 4.5-5.90 10^6/uL Hemoglobin 11.1 L 13.5-17.5 g/dL Hematocrit 33.2 #L 41.0-53.0 % Mean Corpuscular Volume 86.5 # 80.0-100.0 fL Mean Corpuscular Hemoglobin 29.0 28.0-32.0 pg Mean Corpuscular Hemoglobin Concent 33.6 32.0-36.0 g/dL Red Cell Distribution Width 13.8 11.8-14.3 % Platelet Count 408 140-450 10^3/uL Mean Platelet Volume 7.2 6.9-10.8 fL Neutrophils (%) (Auto) 83.3 H 37.0-80.0 % Lymphocytes (%) (Auto) 10.7 10.0-50.0 % Monocytes (%) (Auto) 5.2 0.0-12.0 % Eosinophils (%) (Auto) 0.2 0.0-7.0 % Basophils (%) (Auto) 0.6 0.0-2.0 % Neutrophils # (Auto) 6.6 1.6-8.6 10 ^3/uL Lymphocytes # (Auto) 0.8 0.4-5.4 10 ^3/uL Monocytes # (Auto) 0.4 0-1.3 10 ^3/uL Eosinophils # (Auto) 0 0-0.8 10 ^3/uL Basophils # (Auto) 0 0-0.2 10 ^3/uL Nucleated Red Blood Cells 0.0 % Sodium Level 141 136-145 mmol/L Potassium Level 4.2 3.5-5.1 mmol/L Chloride Level 105 98-107 mmol/L Carbon Dioxide Level 25 # 20-31 mmol/L Anion Gap 11 5-15 Blood Urea Nitrogen 11 9-23 mg/dL Creatinine 1.12 0.700-1.30 mg/dL Glomerular Filtration Rate Calc 75 >90 mL/min BUN/Creatinine Ratio 9.8 L 10.0-20.0 Serum Glucose 174 H 74-106 mg/dL Lactic Acid Level 1.4 0.4-2.0 mmol/L Calcium Level 8.6 L 8.7-10.4 mg/dL Magnesium Level 1.6 1.6-2.6 mg/dL Total Bilirubin 0.3 0.2-1.0 mg/dL Direct Bilirubin < 0.1 <0.3 mg/dL Aspartate Amino Transferase (AST) 16 13-40 U/L Alanine Aminotransferase (ALT) 11 7-40 U/L Alkaline Phosphatase 88 46-116 U/L Total Protein 6.4 5.7-8.2 g/dL Albumin 3.8 3.2-4.8 g/dL POC Glucose 195 H 70-106 mg/dl Blood Gas Specimen Type Arterial Blood Gas Sample Site Right radial Blood Gas Patient Temperature 37.0 Arterial Blood Date Drawn [id number] Arterial Blood pH 7.428 7.350-7.450 Arterial Blood Partial Pressure CO2 32.7 L 35.0-48.0 mmHg Arterial Blood Partial Pressure O2 74.8 L 83.0-108.0 mmHg Arterial Blood HCO3 21.1 21.0-28.0 mmol/L Arterial Blood Oxygen Saturation 94.8 94.0-98.0 % Arterial Blood Base Excess -2.5 L -2.0-3.0 mmol/L Arterial Blood Oxyhemoglobin 93.8 L 94.0-98.0 % Arterial Blood Carboxyhemoglobin 0.8 0.5-1.5 % Arterial Blood Methemoglobin 0.3 0.0-1.5 % Arterial Blood Deoxyhemoglobin 5.1 H 0.0-5.0 % Carmelo Test Yes Blood Gas Total Hemoglobin 12.40 L 13.5-17.5 g/dL Blood Gas Modality Room air FiO2 % 21.0 Phosphorus Level 4.0 2.4-5.1 mg/dL Creatine Kinase 71 46-171 U/L Troponin I High Sensitivity 3 L </=54 ng/L Lipase 31 12-53 U/L Test 09/10/25 08:00 09/09/25 18:56 09/09/25 18:23 Range/Units Urine Color Colorless Yellow Urine Clarity Clear Clear Urine pH 5.5 5.0-9.0 Urine Specific [place] 1.010 1.001-1.035 Urine Protein 1+ H Negative Urine Ketones Negative Negative Urine Blood Negative Negative /uL Urine Nitrite Negative Negative Urine Bilirubin Negative Negative Urine Urobilinogen Normal Negative mg/dL Urine Leukocyte Esterase Negative Negative /uL Urine RBC <1 0 - 3 /hpf Urine Microscopic WBC < 1 0-3 /HPF Urine Squamous Epithelial Cells Few <5 /hpf Urine Bacteria None seen None Seen /hpf Urine Glucose 4+ H Normal mg/dL Urine Opiates Screen Neg NEGATIVE Urine Fentanyl Screen Neg NEGATIVE Urine Barbiturates Screen Neg NEGATIVE Urine Phencyclidine Screen Neg NEGATIVE Urine Amphetamines Screen Neg NEGATIVE Urine Benzodiazepines Screen Neg NEGATIVE Urine Cocaine Screen Neg NEGATIVE Urine Cannabinoids Screen Neg NEGATIVE Ammonia 14 11-32 umol/L Vitamin B12 Level 1353 H 211-911 pg/mL Vitamin D 25-Hydroxy 33.9 30.0-100 ng/mL Prothrombin Time 11.1 9.3-11.8 sec Prothrombin Time INR 1.05 0.9-1.15 Activated Partial Thromboplast Time 28.0 24.5-34.5 SEC B-Type Natriuretic Peptide 101.03 0-100 pg/mL Triglycerides Level 209 H < 150 mg/dL Cholesterol Level 137 < 200 mg/dL LDL Cholesterol 67 < 100 mg/dL HDL Cholesterol 38 L 40-59 mg/dL Thyroid Stimulating Hormone (TSH) 2.22 0.55-4.78 uIU/mL Microbiology Date/Time Source Procedure Growth Status 09/10/25 08:23 Nose MRSA Screen - Final Complete 09/10/25 08:00 Voided Urine Urine Culture - Final Complete 09/09/25 19:11 Blood Blood Culture - Final NO GROWTH AFTER 5 DAYS OF INCUBATION. Complete Assessment Episodic event at 09/15/25 21:51 Partial complex seizure TIA/stroke with aphasia Metabolic encephalopathy Peripheral arterial disease Plan/Recommendation Monitoring Supportive treatment MARIELA care EEG MR brain scan Aspirin 81 mg daily Lipitor 40 mg daily Folic acid supplementation GI prophylax/Protonix DVT/Lovenox 40 mg subQ daily Need more history More medication per clinical course Prognosis: Poor This medical document was created using an electronic medical record system with [employer] computerized dictation system. Although this document has been carefully reviewed, there may still be some phonetic and typographical errors. These areas are purely typographical due to imperfections of the software programs, and do not reflect any compromise in the patient's medical care. Plan discussed with: Other PEDRO MIMS MD Sep 16, 2025 09:15
[2025-09-16] MEDS ORDERED: MAGNESIUM SULFATE 1GM/100ML 100 ML IV SCH (10:00)
[2025-09-16] MEDS: MAGNESIUM SULFATE 1GM/100ML 100 ML IV SCH (10:42)
[2025-09-16 11:06] LABS: COVID19 ANTIGEN SOFIA FIA NEGATIVE (NEGATIVE)
--- NOTE | 2025-09-16 12:06 | DVH ---
CHEST RADIOGRAPH Indication: Aspiration pneumonia Technique: Single frontal view of the chest was obtained Comparison: XY CHEST PORTABLE on DOS: 09/09/25, XY CHEST XRAY 1 VIEW on DOS: 08/06/25, US CHEST ULTRASOUND on DOS: 04/15/25, XY CHEST XRAY 1 VIEW on DOS: 04/10/25, XY CHEST XRAY 1 VIEW on DOS: 04/08/25 FINDINGS: Lines and Tubes: None Lungs: No focal consolidation. Pleura: No effusion. No pneumothorax. Cardiomediastinal contours: Unremarkable Bones: No acute osseous abnormality. IMPRESSION: No acute cardiopulmonary disease.
[2025-09-16] MEDS: PANTOPRAZOLE 40 MG/10 ML VIAL INJ IV SCH (12:52)
[2025-09-16] MEDS: IOHEXOL 350 MG/ML 100ML IJ ONE (13:53)
--- NOTE | 2025-09-16 15:29 | DVH ---
CLINICAL INFORMATION: Rule out mesenteric ischemia. TECHNIQUE: Axial CTA images of the abdomen and pelvis were obtained after the uneventful administration of 100 mL of Omnipaque 350 IV contrast. Coronal and sagittal reformatted images and MIP images were obtained, reviewed, and stored. One or more of the following dose reduction techniques were used: Automated exposure control. Adjustment of mA and/or kV according to patient size. CTDIvol = 13.93 mGy DLP = 817.8 mGy-cm COMPARISON: Noncontrast enhanced CT of the abdomen and pelvis dated 09/16/2025. FINDINGS: No abdominal aortic aneurysm or dissection. Scattered moderate atherosclerotic calcification. Origins of the celiac artery, SMA, bilateral renal arteries, and MARY are patent. No evidence of arterial occlusion demonstrated. There is moderate narrowing at the right common iliac artery due to calcified plaque. Dense calcification in the visualized portions of the right common femoral artery and superficial and deep femoral arteries with areas of likely moderate to severe stenosis in the proximal right superficial femoral artery. There is also prominent calcified plaque in the left external iliac artery, left common femoral artery, and left superficial and deep femoral arteries with areas of likely moderate stenosis in the visualized portions of these arteries. No active extravasation of arterial contrast. No pneumatosis, portal venous gas, or mesenteric gas identified to suggest mesenteric ischemia. Nonspecific mildly distended fluid-filled small bowel loops with no transition point to suggest small bowel obstruction. Appendix is normal. Scattered colonic diverticula are seen without adjacent inflammatory changes to suggest diverticulitis. Moderate stool in the colon. Liver, spleen, pancreas, adrenal glands, and kidneys appear unremarkable. No calcified gallstones visualized in the gallbladder. No biliary ductal dilatation. No free air or free fluid in the abdomen or pelvis. Raoch catheter extends into the bladder. Moderate circumferential thickening of the bladder wall. Small locules of gas within the bladder. Prostate is unremarkable. No abnormality identified in the abdominal wall. Mild atelectasis in the lung bases. No acute or suspicious osseous abnormality identified. IMPRESSION: 1. No abdominal aortic aneurysm or dissection. 2. No arterial occlusion in the abdomen or pelvis. No CT findings are seen to suggest acute mesenteric ischemia. Correlate with clinical findings. 3. Likely moderate stenosis in the right common iliac artery. Areas of moderate to severe stenosis in the visualized portions of the right superficial femoral artery and likely moderate stenoses in the right common femoral and deep femoral arteries as well as in the left common external iliac, common femoral, deep femoral, and superficial femoral arteries. Correlate with clinical findings. If there is clinical concern for lower extremity ischemia, CTA runoff could be considered. 4. Moderate circumferential thickening of the bladder wall is nonspecific. Correlate clinically to exclude cystitis. 5. Nonspecific nondilated fluid-filled small bowel loops. Findings may be seen with ileus or enteritis in the appropriate clinical setting. No small bowel obstruction. 6. Scattered colonic diverticula without adjacent inflammatory changes to suggest diverticulitis. 7. Additional findings as described above.
--- NOTE | 2025-09-16 21:13 | DVH ---
EXAM: CT HEAD WITHOUT CONTRAST INDICATION: UNRESPONSIVE TECHNIQUE: CT images of the head were obtained without administration of IV contrast. CT scans at this facility use dose modulation, iterative reconstruction, and/or weight based dosing when appropriate to reduce radiation dose to as low as reasonably achievable. COMPARISON: MRI BRAIN HEAD WO CONTRAST on DOS: 04/11/25 FINDINGS: PARENCHYMA: No acute hemorrhage. There is no mass effect, midline shift, or herniation. There is preservation of the paulson white differentiation. Mild scattered hypoattenuation along the periventricular, centrum semiovale, and deep white matter tracts, which are nonspecific however statistically most likely represent chronic microvascular ischemic change. VENTRICLES: No hydrocephalus. EXTRA-AXIAL SPACES: No extra-axial fluid collections. OTHER: The bony structures are intact. Mild scattered paranasal sinus mucosal thickening. IMPRESSION: 1. No CT evidence of an acute intracranial abnormality.
[2025-09-16] MEDS: DOCUSATE ORAL LIQUID 100 MG/10 ML UD PO SCH (21:26)
[2025-09-16] MEDS: FOLIC ACID 1 MG in D5W 5% 50 ML INJ SCH (21:36)
--- NOTE | 2025-09-16 23:38 | DVHEEG2 ---
Neurology EEG Procedural Note Procedural Note EXAM DATE: 09/16/25 REFERRING DOCTOR: Dr. Mims TECHNIQUE: Eighteen channels of EEG, 2 channels of EOG, and 1 channel of EKG were recorded using the International 10/20 system. CLINICAL DATA: The patient was referred for an EEG evaluation for the evidence of seizure disorder. MEDICATIONS: See the chart BACKGROUND ACTIVITY: While the patient was awake, the background activity consisted of well regulated 9 Hz rhythmic waveforms, symmetrically distributed over both posterior quadrants and was reactive to eye opening. ACTIVATION: Hyperventilation: Not done Photic Stimulation: Not done Sleep: Noticed IMPRESSION: This is a normal EEG. No focal, lateralized, or epileptiform features are noted. If clinically indicated to rule out a seizure disorder, recommend repeat EEG with sleep deprivation. The EKG channel showed a regular heart rate of 90/min[place] [address] PEDRO MIMS MD Sep 16, 2025 23:38
[2025-09-17] VITALS (27 sets, daily range): BP systolic 85–159; BP diastolic 44–84; PULSE 72–110; RESP 12–21; TEMP 98.3–99.6; O2SAT 96–100
[2025-09-17 05:34] LABS: Hematocrit 29.5 % (41.0-53.0); Hemoglobin 10.0 g/dL (13.5-17.5); Mean Corpuscular Hemoglobin 29.4 pg (28.0-32.0); Mean Corpuscular Volume 86.8 fL (80.0-100.0); Nucleated Red Blood Cells % 0.0 %
[2025-09-17 06:08] LABS: Anion Gap 10 (5-15); Carbon Dioxide 23 mmol/L (20-31); Potassium 3.5 mmol/L (3.5-5.1); Sodium 142 mmol/L (136-145)
[2025-09-17 06:14] LABS: BUN/Creatinine Ratio 6.0 (10.0-20.0)
[2025-09-17 06:15] LABS: Blood Urea Nitrogen 6 mg/dL (9-23); Calcium 8.1 mg/dL (8.7-10.4); Chloride 109 mmol/L (98-107); Glucose 69 mg/dL (74-106); Magnesium 1.9 mg/dL (1.6-2.6)
--- NOTE | 2025-09-17 09:16 | DVHPN2 ---
Progress Note - Dictate Date Seen: Sep 17, 2025 Medical Necessity Reason Pt with a Central, PICC or Fol: Yes The following are medically ne: Roach Catheter Subjective Mr. Del Angel is 59 years old gentleman with a history of hypertension, diabetes, chronic kidney failure, stroke, peripheral arterial disease, schizophrenia, bipolar disorder, questionable liver cirrhosis, he came to the [facility] on 09/09/2025 with a chief complaint of low blood pressure. I have seen and examined the patient, I have discussed with his nurse, he is doing better today, alert and fully oriented, he can maintain good conversation, he remembers but does not understand what happened to him yesterday In the hospital, his blood pressure fluctuates UDS, 09/10/2025: Negative Urinalysis, 09/10/2025: Unremarkable WBC/HB/PLT/MCV, 09/16/2025: 7.9/11.1/408/86.5 BMP 09/16/2025: Unremarkable Lactic acid, 09/16/2025: 6.4, 1.4 Liver function tests, 08/17/2025: Unremarkable Ammonia, 09/09/2025: 14 TG/HDL/LDL/HDL, 09/09/25: 209/137/67/38 Vitamin B12, 09/09/2025: 1353 EEG, 09/16/25: Normal CT head, 09/15/2025: No CT evidence of an acute intracranial abnormality. vital signs Vital Sign Date Time Temp Pulse Resp B/P (MAP) Pulse Ox O2 Delivery O2 Flow Rate FiO2 09/17/25 06:00 80 18 117/49 (71) 100 09/17/25 04:00 98.9 98.9 09/16/25 20:00 Room Air* 0 21 Total Intake and Output 09/16/25 09/16/25 09/17/25 15:00 23:00 07:00 Intake Total 1089 ml 1681 ml 800 ml Output Total 1475 ml 1200 ml Balance 1089 ml 206 ml -400 ml medications Current Medications Medications Dose Ordered Sig/Niesha Route Start Time Stop Time Status Last Admin Dose Admin Acetaminophen 325 mg Q4HP PRN PO 09/09/25 18:45 09/13/25 19:31 325 MG Ondansetron HCl 4 mg Q4HP PRN IV 09/09/25 18:45 Morphine Sulfate 2 mg Q4HPRN PRN IV 09/09/25 18:45 09/13/25 22:27 2 MG Enoxaparin Sodium 40 mg DAILY SC 09/10/25 10:00 09/16/25 09:54 40 MG Diagnostic Test (Pha) 1 strip Q6HR 09/10/25 00:00 09/17/25 06:19 1 STRIP Insulin Human Regular Q6HR SC 09/10/25 00:00 09/16/25 05:53 3 UNITS Dextrose 50 ml UD PRN IV 09/09/25 18:45 Linezolid 300 ml @ 150 mls/hr Q12HR IV 09/09/25 22:00 09/16/25 21:27 150 MLS/HR Quetiapine Fumarate 100 mg HS PO 09/10/25 22:00 09/16/25 21:27 100 MG Aspirin 81 mg DAILY PO 09/10/25 10:00 09/15/25 10:00 81 MG Insulin Glargine 20 units HS SC 09/15/25 22:00 Atorvastatin Calcium 40 mg HS PO 09/15/25 22:00 09/16/25 21:27 40 MG Sodium Chloride 1,000 ml @ 100 mls/hr Q10H IV 09/15/25 23:30 09/17/25 05:30 100 MLS/HR Lorazepam 1 mg Q5MINP PRN IV 09/16/25 00:00 09/16/25 01:35 1 MG Ceftriaxone Sodium 50 ml @ 100 mls/hr DAILY@09 IV 09/16/25 09:00 09/16/25 09:45 100 MLS/HR Magnesium Sulfate/ Dextrose 100 ml @ 100 mls/hr Q1HR IV 09/16/25 10:00 09/16/25 11:59 UNV Pantoprazole Sodium 40 mg DAILY IV 09/16/25 10:00 09/16/25 12:52 40 MG Lorazepam 1 mg ONCE PRN IV 09/16/25 10:15 Docusate Sodium 100 mg BID PO 09/16/25 22:00 09/16/25 21:26 100 MG Folic Acid 1 mg DAILY PO 09/17/25 10:00 objective General: the patient is well developed and nourished. No acute distress. MUSCULOSKELETAL EXAM: Status post right AKA MENTAL STATUS: Subjective SPEECH, LANGUAGE, HIGHER CORTICAL FUNCTION: no aphasia or dysathria. CRANIAL NERVES: Pupils are equal, round and reactive. EOMs full and conjugate. No nystagmus. Facial sensation intact in all three divisions bilaterally. Mandibular strength intact. Facial muscles symmetrical and strength intact. Tongue midline. No fasciculations or atrophy. SENSATION: Sensation to touch and pinprick is unremarkable MOTOR: Normal tone in the upper and lower extremity. Normal muscle bulk. No fasciculations. No abnormal movements or posturing. Muscle strength of the major groups in the extremities is 5/5. REFLEXES: Deep tendon reflexes are symmetrical. No pathological reflexes. CEREBELLAR/COORDINATION: Finger to nose is normal bilaterally laboratory and microbiology Laboratory Tests 09/17/25 05:08 Test 09/17/25 05:08 Range/Units Serum Glucose 69 #L 74-106 mg/dL Problem List Episodic event at 09/15/25 21:51 Partial complex seizure TIA/stroke with aphasia Metabolic encephalopathy Peripheral arterial disease Assessment/Plan Monitoring Supportive treatment MARIELA care MRI brain scan Aspirin 81 mg daily Lipitor 40 mg daily Folic acid supplementation GI prophylax/Protonix DVT/Lovenox 40 mg subQ daily Need more history More medication per clinical course This medical document was created using an electronic medical record system with [employer] computerized dictation system. Although this document has been carefully reviewed, there may still be some phonetic and typographical errors. These areas are purely typographical due to imperfections of the software programs, and do not reflect any compromise in the patient's medical care. Prognosis poor Dietary Evaluation Review Comments: Advance diet to 2GNA CCHO-60 diet Monitorr PO intakes Expected Outcomes/Goals: controlled DM, prevent uremic syndrome Plan discussed with: Patient, Other Critical Care Time(min): 35 PEDRO MIMS MD Sep 17, 2025 09:16
[2025-09-17] MEDS: LORazepam 2MG/ML-1ML VIAL IV PRN (10:09)
[2025-09-17] MEDS: MAGNESIUM SULFATE 1GM/100ML 100 ML IV ONE (10:49)
[2025-09-17] MEDS: FOLIC ACID 1 MG TAB PO SCH (10:54)
[2025-09-17] MEDS: POTASSIUM CHLORIDE 20 MEQ, LIDOCAINE 1% (LOCAL ANESTH.) 2 ML in SODIUM CHL 0.9% 100 ML IV ONE (13:21)
--- NOTE | 2025-09-17 17:08 | DVHPNRES ---
Progress Note Date Seen: Sep 17, 2025 Resident Creating Document: UNIQUE TRAORE Medical Necessity Reason Pt with a Central, PICC or Fol: Yes The following are medically ne: Roach Catheter Subjective Review of Systems This is a 59-year-old male who has past medical history of Hypertension, dyslipidemia, diabetes, diabetic feet status post [id number] amputation of right limb and requires home health services for left ankle, thyroid disease, chronic kidney disease, patient believes he has alcoholic liver cirrhosis but imaging ruled it out, bipolar disorder/schizophrenia, CVA. The patient was sent from his [facility] clinic to the [facility] ED for evaluation of hypotension. He reports multiple episodes of non-bloody vomiting with food content and associated nausea that began on Monday. He also complains of a non- healing left ankle wound for 3.5 years, which has been gradually improving with home health care. At 6:37 PM, the patient met criteria for sepsis, and sepsis protocol was initiated. On evaluation in the ED, patient is afebrile, vitals are stable, blood pressure was 117/65 mmHg. Initial labs show normocytic anemia, creatinine 1.75 and serum glucose 271. Foot X-ray shows possible soft-tissue ulceration of the posterior aspect of the foot and vascular atherosclerotic calcifications. The patient was started on IV antibiotics and IV fluids. Patient is admitted for further evaluation and management. On 09/11/25, The patient reports improvement in his symptoms. Patient is afebrile, tachycardic and hypertensive (145/93 mmHg). Labs show normocytic anemia, serum 206. A wound consult was received for the patients left foot wound. On 09/12/25, The patient has no new complaints. Vascular surgery consult is still pending. On 09/14/25, An ultrasound of the left lower extremity shows no evidence of femoropopliteal deep vein thrombosis. Vascular consult is pending for evaluation of peripheral arterial disease of the left lower extremity. Acute kidney injury has resolved. On 09/15/25, Patient reports feeling better than yesterday, but continue to experience tachycardia, which is concerning for ongoing sepsis. Patient without IV access and not taking prescribed psychiatric medications. Patient repeatedly refused IV placement, telemetry monitoring, and all care. Rapid response called due to ALOC and seizure. On 09/17/25, Patient has remained impulsive and disoriented. EEG completed and results negative for seizure and pending Brain MRI. Diet was changed to soft diet, and the patient is receiving oral medications including temazepam, fluoxetine, and olanzapine, which he has been able to take as prescribed. Surgical history: Right oxyax-fus-fadp amputation Family history: Mother had heart disease Social history: Lives in [place] with family (next of kin is Kareem, cousin). Ex ethanol abuse (three bottles of Tequila per day for25 years) quit15 years ago. Denies current tobacco, alcohol and other drug abuse Allergies: Denies Home medication: Denies Patient seen and examined at bedside. Patient is alert and oriented to time, place person and responding to all questions. Constitutional: Chills, sore throat Eyes: No Pain, No Vision change, No Conjunctivae inflammation, No Eyelid inflammation, No Other, No Redness ENT: No Ear pain, No Ear discharge, No Nose pain, No Nose discharge, No Nose congestion, No Mouth pain, No Mouth swelling, No Throat pain, No Throat swelling, No Other Cardiovascular: No Chest Pain, No Palpitations, No Orthopnea, No Paroxysmal No Dyspnea, No Edema, No Lt Headedness, No Other Respiratory: No Cough, No Dry, No Shortness of breath, No SOB with exertion, No Wheezing, No Hemoptysis, No Pleuritic Pain, No Sputum, No Other Gastrointestinal: Nausea, Vomiting, No Abdominal Pain, No Diarrhea, No Constipation, No Melena, No Hematochezia, No Other Genitourinary: No Dysuria, No Frequency, No Incontinence, No Hematuria, No Retention, No Other Musculoskeletal: No other, No neck pain, No shoulder pain, No arm pain, No back pain, No hand pain, No leg pain, No foot pain Skin: No Rash, No Lesions, No Jaundice, No Bruising, No Other Objective vital signs Vital Sign Date Time Temp Pulse Resp B/P (MAP) Pulse Ox O2 Delivery O2 Flow Rate FiO2 09/17/25 16:00 99 13 122/66 (84) 100 09/17/25 15:00 99.6 99.6 09/17/25 08:00 Room Air* 0 21 Total Intake and Output 09/16/25 09/16/25 09/17/25 15:00 23:00 07:00 Intake Total 1089 ml 1681 ml 900 ml Output Total 1475 ml 1200 ml Balance 1089 ml 206 ml -300 ml medications Current Medications Medications Dose Ordered Sig/Niesha Route Start Time Stop Time Status Last Admin Dose Admin Acetaminophen 325 mg Q4HP PRN PO 09/09/25 18:45 09/13/25 19:31 325 MG Ondansetron HCl 4 mg Q4HP PRN IV 09/09/25 18:45 Morphine Sulfate 2 mg Q4HPRN PRN IV 09/09/25 18:45 09/13/25 22:27 2 MG Enoxaparin Sodium 40 mg DAILY SC 09/10/25 10:00 09/17/25 10:09 40 MG Diagnostic Test (Pha) 1 strip Q6HR 09/10/25 00:00 09/17/25 13:24 1 STRIP Insulin Human Regular Q6HR SC 09/10/25 00:00 09/17/25 12:15 4 UNITS Dextrose 50 ml UD PRN IV 09/09/25 18:45 Linezolid 300 ml @ 150 mls/hr Q12HR IV 09/09/25 22:00 09/17/25 10:50 150 MLS/HR Quetiapine Fumarate 100 mg HS PO 09/10/25 22:00 09/16/25 21:27 100 MG Aspirin 81 mg DAILY PO 09/10/25 10:00 09/17/25 10:54 81 MG Insulin Glargine 20 units HS SC 09/15/25 22:00 Atorvastatin Calcium 40 mg HS PO 09/15/25 22:00 09/16/25 21:27 40 MG Sodium Chloride 1,000 ml @ 100 mls/hr Q10H IV 09/15/25 23:30 09/17/25 05:30 100 MLS/HR Lorazepam 1 mg Q5MINP PRN IV 09/16/25 00:00 09/16/25 01:35 1 MG Ceftriaxone Sodium 50 ml @ 100 mls/hr DAILY@09 IV 09/16/25 09:00 09/17/25 10:49 100 MLS/HR Magnesium Sulfate/ Dextrose 100 ml @ 100 mls/hr Q1HR IV 09/16/25 10:00 09/16/25 11:59 UNV Pantoprazole Sodium 40 mg DAILY IV 09/16/25 10:00 09/17/25 10:09 40 MG Lorazepam 1 mg ONCE PRN IV 09/16/25 10:15 09/17/25 10:09 1 MG Docusate Sodium 100 mg BID PO 09/16/25 22:00 09/17/25 10:09 100 MG Folic Acid 1 mg DAILY PO 09/17/25 10:00 09/17/25 10:54 1 MG Examination General Appearance: Cooperative. Well developed. Well nourished. NAD Head Exam: Normal inspection Neck Exam: Normal inspection. Non-tender. Normal alignment Pulmonary/Respiratory: Chest non-tender. Clear bilateral breath sounds, no crackles, no wheezing. Cardiovascular/Chest: Regular rate and rhythm. No murmurs. No JVD. Peripheral Pulses: 2+ Radial (R). 2+ Radial (L). absent Pedal pulse on left side (L). Can not evaluate right lower limb pulses due to right [id number]-xla-[id number] amputation Abdominal Exam: Normal bowel sounds. Soft. normal abdomen, no visible veins, Nontender. No hepatospenomegaly. No masses Ankle Exam: Negative ankle edema Lower extremities: Negative lower extremity edema Neuro/Mental Status: A&O x4. Coherent. Thoughts/Psych: Normal thought pattern. Appropriate mood and affect. Good judgement and insight MSK/skin exam: Mobilizes 3 limbs has above the knee amputation on right limb with no erythema nor discharge. Skin is dry and warm. Dry ulcer in left ankle, no secretion laboratory and microbiology Laboratory Tests 09/17/25 05:08 Test 09/17/25 05:08 Range/Units Serum Glucose 69 #L 74-106 mg/dL Microbiology Date/Time Source Procedure Growth Status 09/16/25 10:47 Blood Blood Culture - Preliminary NO GROWTH AFTER 24 HOURS OF INCUBATION. Resulted 09/16/25 09:00 Voided Urine Urine Culture - Preliminary No growth Resulted 09/16/25 04:20 Nose MRSA Screen - Final Complete Labs and/or images reviewed: Labs reviewed by me, Image(s) reviewed by me Problem List/Assessment/Plan Problem List/Assessment/Plan #Peripheral arterial disease with moderate to severe stenosis in iliac and femoral arteries #Left lower extremity ischemia #Left foot soft tissue ulceration #Possible Achilles tendinopathy #s/p Right above the knee amputation on right limb #Ruled out acute mesenteric ischemia #Ruled out abdominal aortic aneurysm or dissection #Possible cystitis #Possible ileus or enteritis #Diverticulitis #Sepsis likely due to above Abdominal Angigraphy: No abdominal aortic aneurysm or dissection. No arterial occlusion in the abdomen or pelvis. No CT findings are seen to suggest acute mesenteric ischemia. Likely moderate stenosis in the right common iliac artery. Areas of moderate to severe stenosis in the visualized portions of the right superficial femoral artery and likely moderate stenoses in the right common femoral and deep femoral arteries as well as in the left common external iliac, common femoral, deep femoral, and superficial femoral arteries. Correlate with clinical findings. If there is clinical concern for lower extremity ischemia, CTA runoff could be considered. Moderate circumferential thickening of the bladder wall is nonspecific. Correlate clinically to exclude cystitis. Nonspecific nondilated fluid-filled small bowel loops. Findings may be seen with ileus or enteritis in the appropriate clinical setting. No small bowel obstruction. Scattered colonic diverticula without adjacent inflammatory changes to suggest diverticulitis. Echocardiogram: Difficult acoustic sinus rhythm. Limited views obtained. Valves appear to be structurally normal. Left ventricular function is preserved at 55% with normal RV function. Doppler is unremarkable. No pericardial effusion masses or vegetations. Extremity venous study: No evidence of femoropopliteal deep vein thrombosis Lower Extremity CT: Dense arterial calcification. No acute osseous abnormality. Soft tissue thickening along the course of the achilles tendon, may be due to tendinopathy. Extremity Arterial Study: Findings consistent with hemodynamically significant stenosis /occlusion involving the left dorsalis pedis artery. Foot X-Ray: There is no evidence of acute fracture or dislocation. Possible soft-tissue ulceration of the posterior aspect of the foot. No radiographic findings of osteomyelitis. Vascular atherosclerotic calcifications are present. Single Organ Ultrasound: Unremarkable sonographic study of the right upper quadrant of the abdomen. Chest X-Ray: No acute cardiopulmonary disease. Wound consult Vascular consult MRSA screen: No MRSA detected Urine culture: No growth after 48 hours of incubation Blood culture: No growth after 48 hours of incubation pain management with Morphine and Tylenol Cefepime 1 GM IV q12h Zyvox 600 mg Sputum culture Protonix 40 mg IV NS 1,000 MLS/HR ONE IV NS 60 MLS/HR #Partial complex seizure #TIA/stroke with aphasia #Metabolic encephalopathy Patient was found altered, unable to answer any questions, possibly seizing on 09/15/25. Brain MRI ordered EEG: This is a normal EEG. No focal, lateralized, or epileptiform features are noted. Neurology consult Aspirin 81 MG PO daily Atorvastatin 40 MG PO hs Folic acid supplementation #History of CVA Lovenox 40 mg #Bipolar disorder #Schizophrenia Quetiapine 100 MG PO hs Olanzapine 2.5 MG PO tid Fluoxetine 40 MG PO daily Gabapentin 400 MG PO daily #Insomnia Temazepam 30 MG PO hsprn #Type 2 diabetes mellitus with hyperglycemia, uncontrolled Accu-check Dextrose 50 % Mild sliding scale Insulin lantus 20 Units SC hs #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 Monitor renal function Avoid nephrotoxic drugs #Questionable liver cirrhosis Diet: Soft diet PUD prophylaxis: protonix 40mg DVT prophylaxis: Lovenox 40mg Goals of care: Full code Plan discussed with patient Plan discussed with Dr. Mckee Plan discussed with: Patient, Other (RN) My Orders My Orders Orders - UNIQUE TRAORE Procedure Category Date Status Time Pt Request For Service PT 09/17/25 Logged 11:19 Dietary Evaluation Review Comments: Advance diet to 2GNA CCHO-60 diet Monitorr PO intakes Expected Outcomes/Goals: controlled DM, prevent uremic syndrome Visit Coding STANDARD RES Billing Provider: RODNEY MCKEE MD Date of Service if different f: Sep 17, 2025 Common Visit Codes: [id number] INP/OBS CARE(HIGH) UNIQUE TRAORE Sep 17, 2025 17:08
[2025-09-17] MEDS: OLANZapine 5 MG TAB PO SCH (21:38)
[2025-09-17] MEDS: GABAPENTIN 400 MG CAP PO SCH (21:38)
[2025-09-18] VITALS (17 sets, daily range): BP systolic 90–162; BP diastolic 45–103; PULSE 59–99; RESP 16–18; TEMP 97.1–98.8; O2SAT 96–100
[2025-09-18 05:40] LABS: Hematocrit 30.6 % (41.0-53.0); Hemoglobin 10.0 g/dL (13.5-17.5); Mean Corpuscular Hemoglobin 29.3 pg (28.0-32.0); Mean Corpuscular Volume 89.7 fL (80.0-100.0); Nucleated Red Blood Cells % 0.1 %
[2025-09-18 05:52] LABS: Potassium 3.7 mmol/L (3.5-5.1)
[2025-09-18 05:53] LABS: Anion Gap 12 (5-15); Carbon Dioxide 22 mmol/L (20-31)
[2025-09-18 05:56] LABS: Calcium 8.0 mg/dL (8.7-10.4); Chloride 112 mmol/L (98-107); Sodium 146 mmol/L (136-145)
[2025-09-18 05:58] LABS: BUN/Creatinine Ratio 7.3 (10.0-20.0); Blood Urea Nitrogen 9 mg/dL (9-23); Glucose 82 mg/dL (74-106)
[2025-09-18] MEDS: CLINDAMYCIN 600MG IV 50 ML IV ONE (12:32)
--- NOTE | 2025-09-18 12:34 | DVHPNRES ---
Progress Note Date Seen: Sep 18, 2025 Resident Creating Document: UNIQUE TRAORE Medical Necessity Reason Pt with a Central, PICC or Fol: Yes The following are medically ne: Roach Catheter Subjective Review of Systems This is a 59-year-old male who has past medical history of Hypertension, dyslipidemia, diabetes, diabetic feet status post [id number] amputation of right limb and requires home health services for left ankle, thyroid disease, chronic kidney disease, patient believes he has alcoholic liver cirrhosis but imaging ruled it out, bipolar disorder/schizophrenia, CVA. The patient was sent from his continuity clinic to the [facility] ED for evaluation of hypotension. He reports multiple episodes of non-bloody vomiting with food content and associated nausea that began on Monday. He also complains of a non- healing left ankle wound for 3.5 years, which has been gradually improving with home health care. At 6:37 PM, the patient met criteria for sepsis, and sepsis protocol was initiated. On evaluation in the ED, patient is afebrile, vitals are stable, blood pressure was 117/65 mmHg. Initial labs show normocytic anemia, creatinine 1.75 and serum glucose 271. Foot X-ray shows possible soft-tissue ulceration of the posterior aspect of the foot and vascular atherosclerotic calcifications. The patient was started on IV antibiotics and IV fluids. Patient is admitted for further evaluation and management. On 09/11/25, The patient reports improvement in his symptoms. Patient is afebrile, tachycardic and hypertensive (145/93 mmHg). Labs show normocytic anemia, serum 206. A wound consult was received for the patients left foot wound. On 09/12/25, The patient has no new complaints. Vascular surgery consult is still pending. On 09/14/25, An ultrasound of the left lower extremity shows no evidence of femoropopliteal deep vein thrombosis. Vascular consult is pending for evaluation of peripheral arterial disease of the left lower extremity. Acute kidney injury has resolved. On 09/15/25, Patient reports feeling better than yesterday, but continue to experience tachycardia, which is concerning for ongoing sepsis. Patient without IV access and not taking prescribed psychiatric medications. Patient repeatedly refused IV placement, telemetry monitoring, and all care. Rapid response called due to ALOC and seizure. On 09/17/25, Patient has remained impulsive and disoriented. EEG completed and results negative for seizure and pending Brain MRI. Diet was changed to soft diet, and the patient is receiving oral medications including temazepam, fluoxetine, and olanzapine, which he has been able to take as prescribed. On 09/18/25, Patient was transferred to the telemetry unit and attached to a telemetry box. The patient was awake, alert, and oriented to person and place with even and unlabored breathing and no distress noted. The scheduled brain MRI was canceled because the patient was unable to complete the procedure. Due to an unknown source of infection, IV clindamycin therapy was initiated. Surgical history: Right [id number] amputation Family history: Mother had heart disease Social history: Lives in [place] with family (next of kin is Kareem, cousin). Ex ethanol abuse (three bottles of Tequila per day for25 years) quit15 years ago. Denies current tobacco, alcohol and other drug abuse Allergies: Denies Home medication: Denies Patient seen and examined at bedside. Patient is alert and oriented to time, place person and responding to all questions. Constitutional: No chills, No sore throat Eyes: No Pain, No Vision change, No Conjunctivae inflammation, No Eyelid inflammation, No Other, No Redness ENT: No Ear pain, No Ear discharge, No Nose pain, No Nose discharge, No Nose congestion, No Mouth pain, No Mouth swelling, No Throat pain, No Throat swelling, No Other Cardiovascular: No Chest Pain, No Palpitations, No Orthopnea, No Paroxysmal No Dyspnea, No Edema, No Lt Headedness, No Other Respiratory: No Cough, No Dry, No Shortness of breath, No SOB with exertion, No Wheezing, No Hemoptysis, No Pleuritic Pain, No Sputum, No Other Gastrointestinal: No Nausea, No Vomiting, No Abdominal Pain, No Diarrhea, No Constipation, No Melena, No Hematochezia, No Other Genitourinary: No Dysuria, No Frequency, No Incontinence, No Hematuria, No Retention, No Other Musculoskeletal: No other, No neck pain, No shoulder pain, No arm pain, No back pain, No hand pain, No leg pain, No foot pain Skin: No Rash, No Lesions, No Jaundice, No Bruising, No Other Objective vital signs Vital Sign Date Time Temp Pulse Resp B/P (MAP) Pulse Ox O2 Delivery O2 Flow Rate FiO2 09/18/25 10:00 98.3 96 18 158/88 (111) 99 98.3 09/18/25 08:00 Room Air* 0 21 Total Intake and Output 09/17/25 09/17/25 09/18/25 15:00 23:00 07:00 Intake Total 2228 ml 2028 ml 1090 ml Output Total 1900 ml 900 ml Balance 2228 ml 128 ml 190 ml medications Current Medications Medications Dose Ordered Sig/Niesha Route Start Time Stop Time Status Last Admin Dose Admin Acetaminophen 325 mg Q4HP PRN PO 09/09/25 18:45 09/13/25 19:31 325 MG Ondansetron HCl 4 mg Q4HP PRN IV 09/09/25 18:45 Morphine Sulfate 2 mg Q4HPRN PRN IV 09/09/25 18:45 09/13/25 22:27 2 MG Enoxaparin Sodium 40 mg DAILY SC 09/10/25 10:00 09/18/25 10:44 40 MG Diagnostic Test (Pha) 1 strip Q6HR 09/10/25 00:00 09/18/25 06:10 1 STRIP Insulin Human Regular Q6HR SC 09/10/25 00:00 09/18/25 00:00 4 UNITS Dextrose 50 ml UD PRN IV 09/09/25 18:45 Quetiapine Fumarate 100 mg HS PO 09/10/25 22:00 09/17/25 21:38 100 MG Aspirin 81 mg DAILY PO 09/10/25 10:00 09/18/25 10:44 81 MG Insulin Glargine 20 units HS SC 09/15/25 22:00 09/17/25 21:53 20 UNITS Atorvastatin Calcium 40 mg HS PO 09/15/25 22:00 09/17/25 21:38 40 MG Sodium Chloride 1,000 ml @ 100 mls/hr Q10H IV 09/15/25 23:30 09/18/25 06:28 100 MLS/HR Lorazepam 1 mg Q5MINP PRN IV 09/16/25 00:00 09/16/25 01:35 1 MG Magnesium Sulfate/ Dextrose 100 ml @ 100 mls/hr Q1HR IV 09/16/25 10:00 09/16/25 11:59 UNV Pantoprazole Sodium 40 mg DAILY IV 09/16/25 10:00 09/18/25 10:43 40 MG Lorazepam 1 mg ONCE PRN IV 09/16/25 10:15 09/17/25 10:09 1 MG Docusate Sodium 100 mg BID PO 09/16/25 22:00 09/17/25 21:39 100 MG Folic Acid 1 mg DAILY PO 09/17/25 10:00 09/18/25 10:44 1 MG Olanzapine 2.5 mg HS PO 09/17/25 22:00 09/17/25 21:38 2.5 MG Fluoxetine HCl 40 mg DAILY PO 09/18/25 10:00 09/18/25 10:46 40 MG Gabapentin 400 mg TID PO 09/17/25 22:00 09/18/25 06:27 400 MG Temazepam 30 mg HSPRN PRN PO 09/17/25 17:15 Clindamycin Phosphate 50 ml @ 50 mls/hr Q8HR IV 09/18/25 22:00 Examination General Appearance: Cooperative. Well developed. Well nourished. NAD Head Exam: Normal inspection Neck Exam: Normal inspection. Non-tender. Normal alignment Pulmonary/Respiratory: Chest non-tender. Clear bilateral breath sounds, no crackles, no wheezing. Cardiovascular/Chest: Regular rate and rhythm. No murmurs. No JVD. Peripheral Pulses: 2+ Radial (R). 2+ Radial (L). absent Pedal pulse on left side (L). Can not evaluate right lower limb pulses due to right [id number] amputation Abdominal Exam: Normal bowel sounds. Soft. normal abdomen, no visible veins, Nontender. No hepatospenomegaly. No masses Ankle Exam: Negative ankle edema Lower extremities: Negative lower extremity edema Neuro/Mental Status: A&O x4. Coherent. Thoughts/Psych: Normal thought pattern. Appropriate mood and affect. Good judgement and insight MSK/skin exam: Mobilizes 3 limbs has above the knee amputation on right limb with no erythema nor discharge. Skin is dry and warm. Dry ulcer in left ankle, no secretion laboratory and microbiology Laboratory Tests 09/18/25 04:56 Test 09/18/25 04:56 Range/Units Serum Glucose 82 74-106 mg/dL Microbiology Date/Time Source Procedure Growth Status 09/16/25 10:47 Blood Blood Culture - Preliminary NO GROWTH AFTER 48 HOURS OF INCUBATION. 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 No arterial occlusion in the abdomen or pelvis. No CT findings are seen to suggest acute mesenteric ischemia. Likely moderate stenosis in the right common iliac artery. Areas of moderate to severe stenosis in the visualized portions of the right superficial femoral artery and likely moderate stenoses in the right common femoral and deep femoral arteries as well as in the left common external iliac, common femoral, deep femoral, and superficial femoral arteries. Correlate with clinical findings. If there is clinical concern for lower extremity ischemia, CTA runoff could be considered. Moderate circumferential thickening of the bladder wall is nonspecific. Correlate clinically to exclude cystitis. Nonspecific nondilated fluid-filled small bowel loops. Findings may be seen with ileus or enteritis in the appropriate clinical setting. No small bowel obstruction. Scattered colonic diverticula without adjacent inflammatory changes to suggest diverticulitis. Echocardiogram: Difficult acoustic sinus rhythm. Limited views obtained. Valves appear to be structurally normal. Left ventricular function is preserved at 55% with normal RV function. Doppler is unremarkable. No pericardial effusion masses or vegetations. Extremity venous study: No evidence of femoropopliteal deep vein thrombosis Lower Extremity CT: Dense arterial calcification. No acute osseous abnormality. Soft tissue thickening along the course of the achilles tendon, may be due to tendinopathy. Extremity Arterial Study: Findings consistent with hemodynamically significant stenosis /occlusion involving the left dorsalis pedis artery. Foot X-Ray: There is no evidence of acute fracture or dislocation. Possible soft-tissue ulceration of the posterior aspect of the foot. No radiographic findings of osteomyelitis. Vascular atherosclerotic calcifications are present. Single Organ Ultrasound: Unremarkable sonographic study of the right upper quadrant of the abdomen. Chest X-Ray: No acute cardiopulmonary disease. Wound consult Vascular consult MRSA screen: No MRSA detected Urine culture: No growth after 48 hours of incubation Blood culture: No growth after 48 hours of incubation pain management with Morphine and Tylenol Cefepime 1 GM IV q12h Zyvox 600 mg Sputum culture Protonix 40 mg IV NS 1,000 MLS/HR ONE IV NS 60 MLS/HR Clindamycin 600 MG IV q8h Hydralazine injection 10 MG IV once #Partial complex seizure #TIA/stroke with aphasia #Metabolic encephalopathy Patient was found altered, unable to answer any questions, possibly seizing on 09/15/25. Brain MRI ordered EEG: This is a normal EEG. No focal, lateralized, or epileptiform features are noted. Neurology consult Aspirin 81 MG PO daily Atorvastatin 40 MG PO hs Folic acid supplementation #History of CVA Lovenox 40 mg #Bipolar disorder #Schizophrenia Quetiapine 100 MG PO hs Olanzapine 2.5 MG PO tid Fluoxetine 40 MG PO daily Gabapentin 400 MG PO daily #Insomnia Temazepam 30 MG PO hsprn #Type 2 diabetes mellitus with hyperglycemia, uncontrolled Accu-check Dextrose 50 % Mild sliding scale Insulin lantus 20 Units SC hs #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 Monitor renal function Avoid nephrotoxic drugs #Questionable liver cirrhosis Diet: Soft diet PUD prophylaxis: protonix 40mg DVT prophylaxis: Lovenox 40mg Goals of care: Full code Plan discussed with patient Plan discussed with Dr. Mckee Plan discussed with: Patient, Other (RN) My Orders My Orders Orders - UNIQUE TRAORE Procedure Category Date Status Time Brain Head Wo Contrast MRI 09/18/25 Logged 12:28 Dietary Evaluation Review Comments: Advance diet to 2GNA CCHO-60 diet Monitorr PO intakes Expected Outcomes/Goals: controlled DM, prevent uremic syndrome Visit Coding STANDARD RES Billing Provider: RODNEY MCKEE MD Date of Service if different f: Sep 18, 2025 Common Visit Codes: 53803-[id number] INP/OBS CARE(HIGH) UNIQUE TRAORE Sep 18, 2025 12:34
[2025-09-18] MEDS: hydrALAZINE HCL 20 MG/ML VL IV ONE (13:29)
--- NOTE | 2025-09-18 18:55 | DVHPN2 ---
Progress Note - Dictate Date Seen: Sep 18, 2025 Medical Necessity Reason Pt with a Central, PICC or Fol: Yes The following are medically ne: Roach Catheter Subjective Mr. Del Angel is 59 years old gentleman with a history of hypertension, diabetes, chronic kidney failure, stroke, peripheral arterial disease, schizophrenia, bipolar disorder, questionable liver cirrhosis, he came to the [facility] on 09/09/2025 with a chief complaint of low blood pressure. I have seen and examined the patient, I have discussed with his nurse and sitter, he is doing fine, alert and fully oriented, he can maintain good conversation UDS, 09/10/2025: Negative Urinalysis, 09/10/2025: Unremarkable WBC/HB/PLT/MCV, 09/16/2025: 7.9/11.1/408/86.5 BMP 09/16/2025: Unremarkable Lactic acid, 09/16/2025: 6.4, 1.4 Liver function tests, 08/17/2025: Unremarkable Ammonia, 09/09/2025: 14 TG/HDL/LDL/HDL, 09/09/25: 209/137/67/38 Vitamin B12, 09/09/2025: 1353 EEG, 09/16/25: Normal CT head, 09/15/2025: No CT evidence of an acute intracranial abnormality. vital signs Vital Sign Date Time Temp Pulse Resp B/P (MAP) Pulse Ox O2 Delivery O2 Flow Rate FiO2 09/18/25 17:14 98.5 98 18 153/81 (105) 98 98.5 09/18/25 08:00 Room Air* 0 21 Total Intake and Output 09/17/25 09/17/25 09/18/25 15:00 23:00 07:00 Intake Total 2228 ml 2028 ml 1090 ml Output Total 1900 ml 900 ml Balance 2228 ml 128 ml 190 ml medications Current Medications Medications Dose Ordered Sig/Niesha Route Start Time Stop Time Status Last Admin Dose Admin Acetaminophen 325 mg Q4HP PRN PO 09/09/25 18:45 09/13/25 19:31 325 MG Ondansetron HCl 4 mg Q4HP PRN IV 09/09/25 18:45 Morphine Sulfate 2 mg Q4HPRN PRN IV 09/09/25 18:45 09/13/25 22:27 2 MG Enoxaparin Sodium 40 mg DAILY SC 09/10/25 10:00 09/18/25 10:44 40 MG Diagnostic Test (Pha) 1 strip Q6HR 09/10/25 00:00 09/18/25 12:32 1 STRIP Insulin Human Regular Q6HR SC 09/10/25 00:00 09/18/25 12:38 3 UNITS Dextrose 50 ml UD PRN IV 09/09/25 18:45 Quetiapine Fumarate 100 mg HS PO 09/10/25 22:00 09/17/25 21:38 100 MG Aspirin 81 mg DAILY PO 09/10/25 10:00 09/18/25 10:44 81 MG Insulin Glargine 20 units HS SC 09/15/25 22:00 09/17/25 21:53 20 UNITS Atorvastatin Calcium 40 mg HS PO 09/15/25 22:00 09/17/25 21:38 40 MG Sodium Chloride 1,000 ml @ 100 mls/hr Q10H IV 09/15/25 23:30 09/18/25 06:28 100 MLS/HR Lorazepam 1 mg Q5MINP PRN IV 09/16/25 00:00 09/16/25 01:35 1 MG Magnesium Sulfate/ Dextrose 100 ml @ 100 mls/hr Q1HR IV 09/16/25 10:00 09/16/25 11:59 UNV Pantoprazole Sodium 40 mg DAILY IV 09/16/25 10:00 09/18/25 10:43 40 MG Lorazepam 1 mg ONCE PRN IV 09/16/25 10:15 09/17/25 10:09 1 MG Docusate Sodium 100 mg BID PO 09/16/25 22:00 09/17/25 21:39 100 MG Folic Acid 1 mg DAILY PO 09/17/25 10:00 09/18/25 10:44 1 MG Olanzapine 2.5 mg HS PO 09/17/25 22:00 09/17/25 21:38 2.5 MG Fluoxetine HCl 40 mg DAILY PO 09/18/25 10:00 09/18/25 10:46 40 MG Gabapentin 400 mg TID PO 09/17/25 22:00 09/18/25 13:37 400 MG Temazepam 30 mg HSPRN PRN PO 09/17/25 17:15 Clindamycin Phosphate 50 ml @ 50 mls/hr Q8HR IV 09/18/25 22:00 objective General: the patient is well developed and nourished. No acute distress. MUSCULOSKELETAL EXAM: Status post right AKA MENTAL STATUS: Subjective SPEECH, LANGUAGE, HIGHER CORTICAL FUNCTION: no aphasia or dysathria. CRANIAL NERVES: Pupils are equal, round and reactive. EOMs full and conjugate. No nystagmus. Facial sensation intact in all three divisions bilaterally. Mandibular strength intact. Facial muscles symmetrical and strength intact. Tongue midline. No fasciculations or atrophy. SENSATION: Sensation to touch and pinprick is unremarkable MOTOR: Normal tone in the upper and lower extremity. Normal muscle bulk. No fasciculations. No abnormal movements or posturing. Muscle strength of the major groups in the extremities is 5/5. REFLEXES: Deep tendon reflexes are symmetrical. No pathological reflexes. CEREBELLAR/COORDINATION: Finger to nose is normal bilaterally laboratory and microbiology Laboratory Tests 09/18/25 04:56 Test 09/18/25 04:56 Range/Units Serum Glucose 82 74-106 mg/dL Problem List Episodic event at 09/15/25 21:51 Partial complex seizure TIA/stroke with aphasia Metabolic encephalopathy Peripheral arterial disease Assessment/Plan Monitoring Supportive treatment Telemetry MRI brain scan, he was not cooperative Aspirin 81 mg daily Lipitor 40 mg daily Folic acid supplementation GI prophylax/Protonix DVT/Lovenox 40 mg subQ daily Need more history More medication per clinical course This medical document was created using an electronic medical record system with [employer] dictation system. Although this document has been carefully reviewed, there may still be some phonetic and typographical errors. These areas are purely typographical due to imperfections of the software programs, and do not reflect any compromise in the patient's medical care. Prognosis poor Dietary Evaluation Review Comments: Advance diet to 2GNA CCHO-60 diet Monitorr PO intakes Expected Outcomes/Goals: controlled DM, prevent uremic syndrome Plan discussed with: Patient, Other PEDRO MIMS MD Sep 18, 2025 18:55
[2025-09-18] MEDS: CLINDAMYCIN 600MG IV 50 ML IV SCH (23:39)
[2025-09-19] VITALS (9 sets, daily range): BP systolic 81–128; BP diastolic 50–79; PULSE 81–105; RESP 16–18; TEMP 97.5–98.8; O2SAT 96–100
[2025-09-19] MEDS: TEMAZEPAM 15 MG CAP PO PRN
[2025-09-19 05:43] LABS: Hematocrit 32.3 % (41.0-53.0); Hemoglobin 10.8 g/dL (13.5-17.5); Mean Corpuscular Hemoglobin 29.3 pg (28.0-32.0); Mean Corpuscular Volume 88.1 fL (80.0-100.0); Nucleated Red Blood Cells % 0.1 %
[2025-09-19] MEDS: SODIUM CHLORIDE 0.9% 500 ML IV ONE (05:55)
[2025-09-19 05:57] LABS: Alanine Aminotransferase 10 U/L (7-40); Alkaline Phosphatase 77 U/L (46-116); Anion Gap 10 (5-15); BUN/Creatinine Ratio 10.9 (10.0-20.0); Blood Urea Nitrogen 14 mg/dL (9-23); Carbon Dioxide 24 mmol/L (20-31); Potassium 3.7 mmol/L (3.5-5.1); Sodium 142 mmol/L (136-145)
[2025-09-19 05:58] LABS: Albumin 3.3 g/dL (3.2-4.8)
[2025-09-19 06:05] LABS: Bilirubin, Total 0.3 mg/dL (0.2-1.0); Calcium 8.0 mg/dL (8.7-10.4); Chloride 108 mmol/L (98-107); Glucose 147 mg/dL (74-106); Total Protein 5.7 g/dL (5.7-8.2)
--- NOTE | 2025-09-19 12:39 | DVHPN2 ---
Progress Note - Dictate Date Seen: Sep 19, 2025 Medical Necessity Reason Pt with a Central, PICC or Fol: Yes The following are medically ne: Roach Catheter Subjective Mr. Del Angel is 59 years old gentleman with a history of hypertension, diabetes, chronic kidney failure, stroke, peripheral arterial disease, schizophrenia, bipolar disorder, questionable liver cirrhosis, he came to the [facility] on 09/09/2025 with a chief complaint of low blood pressure. I have seen and examined the patient, I have discussed with his nurse, he is doing fine, alert and fully oriented, no new complaints UDS, 09/10/2025: Negative Urinalysis, 09/10/2025: Unremarkable WBC/HB/PLT/MCV, 09/16/2025: 7.9/11.1/408/86.5 BMP 09/16/2025: Unremarkable Lactic acid, 09/16/2025: 6.4, 1.4 Liver function tests, 08/17/2025: Unremarkable Ammonia, 09/09/2025: 14 TG/HDL/LDL/HDL, 09/09/25: 209/137/67/38 Vitamin B12, 09/09/2025: 1353 EEG, 09/16/25: Normal CT head, 09/15/2025: No CT evidence of an acute intracranial abnormality. vital signs Vital Sign Date Time Temp Pulse Resp B/P (MAP) Pulse Ox O2 Delivery O2 Flow Rate FiO2 09/19/25 09:00 97.5 100 18 107/65 (79) 100 97.5 09/18/25 20:00 Room Air* 0 21 Total Intake and Output 09/18/25 09/18/25 09/19/25 15:00 23:00 07:00 Intake Total 450 ml 850 ml 300 ml Output Total 1300 ml 1152 ml Balance 450 ml -450 ml -852 ml medications Current Medications Medications Dose Ordered Sig/Niesha Route Start Time Stop Time Status Last Admin Dose Admin Acetaminophen 325 mg Q4HP PRN PO 09/09/25 18:45 09/13/25 19:31 325 MG Ondansetron HCl 4 mg Q4HP PRN IV 09/09/25 18:45 Enoxaparin Sodium 40 mg DAILY SC 09/10/25 10:00 09/19/25 11:17 40 MG Diagnostic Test (Pha) 1 strip Q6HR 09/10/25 00:00 09/19/25 12:13 1 STRIP Insulin Human Regular Q6HR SC 09/10/25 00:00 09/19/25 12:13 3 UNITS Dextrose 50 ml UD PRN IV 09/09/25 18:45 Quetiapine Fumarate 100 mg HS PO 09/10/25 22:00 09/18/25 23:38 100 MG Aspirin 81 mg DAILY PO 09/10/25 10:00 09/19/25 11:15 81 MG Insulin Glargine 20 units HS SC 09/15/25 22:00 09/18/25 23:57 20 UNITS Atorvastatin Calcium 40 mg HS PO 09/15/25 22:00 09/18/25 23:38 40 MG Sodium Chloride 1,000 ml @ 100 mls/hr Q10H IV 09/15/25 23:30 09/19/25 11:17 100 MLS/HR Lorazepam 1 mg Q5MINP PRN IV 09/16/25 00:00 09/16/25 01:35 1 MG Magnesium Sulfate/ Dextrose 100 ml @ 100 mls/hr Q1HR IV 09/16/25 10:00 09/16/25 11:59 UNV Pantoprazole Sodium 40 mg DAILY IV 09/16/25 10:00 09/19/25 12:06 40 MG Lorazepam 1 mg ONCE PRN IV 09/16/25 10:15 09/17/25 10:09 1 MG Docusate Sodium 100 mg BID PO 09/16/25 22:00 09/19/25 11:14 100 MG Folic Acid 1 mg DAILY PO 09/17/25 10:00 09/19/25 11:15 1 MG Olanzapine 2.5 mg HS PO 09/17/25 22:00 09/18/25 23:38 2.5 MG Fluoxetine HCl 40 mg DAILY PO 09/18/25 10:00 09/19/25 11:14 40 MG Gabapentin 400 mg TID PO 09/17/25 22:00 09/19/25 05:54 400 MG Temazepam 30 mg HSPRN PRN PO 09/17/25 17:15 09/19/25 00:00 30 MG Clindamycin Phosphate 50 ml @ 50 mls/hr Q8HR IV 09/18/25 22:00 09/19/25 06:12 50 MLS/HR objective General: the patient is well developed and nourished. No acute distress. MUSCULOSKELETAL EXAM: Status post right AKA MENTAL STATUS: Subjective SPEECH, LANGUAGE, HIGHER CORTICAL FUNCTION: no aphasia or dysathria. CRANIAL NERVES: Pupils are equal, round and reactive. EOMs full and conjugate. No nystagmus. Facial sensation intact in all three divisions bilaterally. Mandibular strength intact. Facial muscles symmetrical and strength intact. Tongue midline. No fasciculations or atrophy. SENSATION: Sensation to touch and pinprick is unremarkable MOTOR: Normal tone in the upper and lower extremity. Normal muscle bulk. No fasciculations. No abnormal movements or posturing. Muscle strength of the major groups in the extremities is 5/5. REFLEXES: Deep tendon reflexes are symmetrical. No pathological reflexes. CEREBELLAR/COORDINATION: Finger to nose is normal bilaterally laboratory and microbiology Laboratory Tests 09/19/25 05:02 Test 09/19/25 05:02 Range/Units Serum Glucose 147 H 74-106 mg/dL Problem List Episodic event at 09/15/25 21:51 Partial complex seizure TIA/stroke with aphasia Metabolic encephalopathy Peripheral arterial disease Tuberculosis exposure Assessment/Plan Monitoring Supportive treatment Telemetry QuantiFERON-TB Gold MRI brain scan (he was not cooperative) Aspirin 81 mg daily Lipitor 40 mg daily Folic acid supplementation GI prophylax/Protonix DVT/Lovenox 40 mg subQ daily Need more history More medication per clinical course This medical document was created using an electronic medical record system with [employer] dictation system. Although this document has been carefully reviewed, there may still be some phonetic and typographical errors. These areas are purely typographical due to imperfections of the software programs, and do not reflect any compromise in the patient's medical care. Prognosis poor Dietary Evaluation Review Comments: Advance diet to 2GNA CCHO-60 diet Monitorr PO intakes Expected Outcomes/Goals: controlled DM, prevent uremic syndrome Plan discussed with: Other PEDRO MIMS MD Sep 19, 2025 12:39
--- NOTE | 2025-09-19 14:51 | DVHPNRES ---
Progress Note Date Seen: Sep 19, 2025 Resident Creating Document: UNIQUE TRAORE Medical Necessity Reason Pt with a Central, PICC or Fol: Yes The following are medically ne: Roach Catheter Subjective Review of Systems This is a 59-year-old male who has past medical history of Hypertension, dyslipidemia, diabetes, diabetic feet status post [id number] amputation of right limb and requires home health services for left ankle, thyroid disease, chronic kidney disease, patient believes he has alcoholic liver cirrhosis but imaging ruled it out, bipolar disorder/schizophrenia, CVA. The patient was sent from his [facility] clinic to the [facility] ED for evaluation of hypotension. He reports multiple episodes of non-bloody vomiting with food content and associated nausea that began on Monday. He also complains of a non- healing left ankle wound for 3.5 years, which has been gradually improving with home health care. At 6:37 PM, the patient met criteria for sepsis, and sepsis protocol was initiated. On evaluation in the ED, patient is afebrile, vitals are stable, blood pressure was 117/65 mmHg. Initial labs show normocytic anemia, creatinine 1.75 and serum glucose 271. Foot X-ray shows possible soft-tissue ulceration of the posterior aspect of the foot and vascular atherosclerotic calcifications. The patient was started on IV antibiotics and IV fluids. Patient is admitted for further evaluation and management. On 09/11/25, The patient reports improvement in his symptoms. Patient is afebrile, tachycardic and hypertensive (145/93 mmHg). Labs show normocytic anemia, serum 206. A wound consult was received for the patients left foot wound. On 09/12/25, The patient has no new complaints. Vascular surgery consult is still pending. On 09/14/25, An ultrasound of the left lower extremity shows no evidence of femoropopliteal deep vein thrombosis. Vascular consult is pending for evaluation of peripheral arterial disease of the left lower extremity. Acute kidney injury has resolved. On 09/15/25, Patient reports feeling better than yesterday, but continue to experience tachycardia, which is concerning for ongoing sepsis. Patient without IV access and not taking prescribed psychiatric medications. Patient repeatedly refused IV placement, telemetry monitoring, and all care. Rapid response called due to ALOC and seizure. On 09/17/25, Patient has remained impulsive and disoriented. EEG completed and results negative for seizure and pending Brain MRI. Diet was changed to soft diet, and the patient is receiving oral medications including temazepam, fluoxetine, and olanzapine, which he has been able to take as prescribed. On 09/18/25, Patient was transferred to the telemetry unit and attached to a telemetry box. The patient was awake, alert, and oriented to person and place with even and unlabored breathing and no distress noted. The scheduled brain MRI was canceled because the patient was unable to complete the procedure. Due to an unknown source of infection, IV clindamycin therapy was initiated. On 09/19/25, The patient reports recent contact with an individual who tested positive for tuberculosis. A QuantiFERON-TB Gold test has been ordered to evaluate for latent or active TB infection. Acid-fast bacillus (AFB) testing has also been initiated. The patient has been placed in isolation as a precautionary measure. Surgical history: Right ramqt-iwp-raue amputation Family history: Mother had heart disease Social history: Lives in [place] with family (next of kin is Kareem, cousin). Ex ethanol abuse (three bottles of Tequila per day for25 years) quit15 years ago. Denies current tobacco, alcohol and other drug abuse Allergies: Denies Home medication: Denies Patient seen and examined at bedside. Patient is alert and oriented to time, place person and responding to all questions. Constitutional: No chills, No sore throat Eyes: No Pain, No Vision change, No Conjunctivae inflammation, No Eyelid inflammation, No Other, No Redness ENT: No Ear pain, No Ear discharge, No Nose pain, No Nose discharge, No Nose congestion, No Mouth pain, No Mouth swelling, No Throat pain, No Throat swelling, No Other Cardiovascular: No Chest Pain, No Palpitations, No Orthopnea, No Paroxysmal No Dyspnea, No Edema, No Lt Headedness, No Other Respiratory: No Cough, No Dry, No Shortness of breath, No SOB with exertion, No Wheezing, No Hemoptysis, No Pleuritic Pain, No Sputum, No Other Gastrointestinal: No Nausea, No Vomiting, No Abdominal Pain, No Diarrhea, No Constipation, No Melena, No Hematochezia, No Other Genitourinary: No Dysuria, No Frequency, No Incontinence, No Hematuria, No Retention, No Other Musculoskeletal: No other, No neck pain, No shoulder pain, No arm pain, No back pain, No hand pain, No leg pain, No foot pain Skin: No Rash, No Lesions, No Jaundice, No Bruising, No Other Objective vital signs Vital Sign Date Time Temp Pulse Resp B/P (MAP) Pulse Ox O2 Delivery O2 Flow Rate FiO2 09/19/25 13:00 97.6 91 18 128/79 (95) 100 97.6 09/19/25 08:10 Room Air* 0 21 Total Intake and Output 09/18/25 09/18/25 09/19/25 15:00 23:00 07:00 Intake Total 450 ml 850 ml 300 ml Output Total 1300 ml 1152 ml Balance 450 ml -450 ml -852 ml medications Current Medications Medications Dose Ordered Sig/Niesha Route Start Time Stop Time Status Last Admin Dose Admin Acetaminophen 325 mg Q4HP PRN PO 09/09/25 18:45 09/13/25 19:31 325 MG Ondansetron HCl 4 mg Q4HP PRN IV 09/09/25 18:45 Enoxaparin Sodium 40 mg DAILY SC 09/10/25 10:00 09/19/25 11:17 40 MG Diagnostic Test (Pha) 1 strip Q6HR 09/10/25 00:00 09/19/25 12:13 1 STRIP Insulin Human Regular Q6HR SC 09/10/25 00:00 09/19/25 12:13 3 UNITS Dextrose 50 ml UD PRN IV 09/09/25 18:45 Quetiapine Fumarate 100 mg HS PO 09/10/25 22:00 09/18/25 23:38 100 MG Aspirin 81 mg DAILY PO 09/10/25 10:00 09/19/25 11:15 81 MG Insulin Glargine 20 units HS SC 09/15/25 22:00 09/18/25 23:57 20 UNITS Atorvastatin Calcium 40 mg HS PO 09/15/25 22:00 09/18/25 23:38 40 MG Sodium Chloride 1,000 ml @ 100 mls/hr Q10H IV 09/15/25 23:30 09/19/25 11:17 100 MLS/HR Lorazepam 1 mg Q5MINP PRN IV 09/16/25 00:00 09/16/25 01:35 1 MG Magnesium Sulfate/ Dextrose 100 ml @ 100 mls/hr Q1HR IV 09/16/25 10:00 09/16/25 11:59 UNV Pantoprazole Sodium 40 mg DAILY IV 09/16/25 10:00 09/19/25 12:06 40 MG Lorazepam 1 mg ONCE PRN IV 09/16/25 10:15 09/17/25 10:09 1 MG Docusate Sodium 100 mg BID PO 09/16/25 22:00 09/19/25 11:14 100 MG Folic Acid 1 mg DAILY PO 09/17/25 10:00 09/19/25 11:15 1 MG Olanzapine 2.5 mg HS PO 09/17/25 22:00 09/18/25 23:38 2.5 MG Fluoxetine HCl 40 mg DAILY PO 09/18/25 10:00 09/19/25 11:14 40 MG Gabapentin 400 mg TID PO 09/17/25 22:00 09/19/25 05:54 400 MG Temazepam 30 mg HSPRN PRN PO 09/17/25 17:15 09/19/25 00:00 30 MG Clindamycin Phosphate 50 ml @ 50 mls/hr Q8HR IV 09/18/25 22:00 09/19/25 06:12 50 MLS/HR Examination General Appearance: Cooperative. Well developed. Well nourished. NAD Head Exam: Normal inspection Neck Exam: Normal inspection. Non-tender. Normal alignment Pulmonary/Respiratory: Chest non-tender. Clear bilateral breath sounds, no crackles, no wheezing. Cardiovascular/Chest: Regular rate and rhythm. No murmurs. No JVD. Peripheral Pulses: 2+ Radial (R). 2+ Radial (L). absent Pedal pulse on left side (L). Can not evaluate right lower limb pulses due to right mwzzq-hwk-artn amputation Abdominal Exam: Normal bowel sounds. Soft. normal abdomen, no visible veins, Nontender. No hepatospenomegaly. No masses Ankle Exam: Negative ankle edema Lower extremities: Negative lower extremity edema Neuro/Mental Status: A&O x4. Coherent. Thoughts/Psych: Normal thought pattern. Appropriate mood and affect. Good judgement and insight MSK/skin exam: Mobilizes 3 limbs has above the knee amputation on right limb with no erythema nor discharge. Skin is dry and warm. Dry ulcer in left ankle, no secretion laboratory and microbiology Laboratory Tests 09/19/25 05:02 Test 09/19/25 05:02 Range/Units Serum Glucose 147 H 74-106 mg/dL Microbiology Date/Time Source Procedure Growth Status 09/16/25 10:47 Blood Blood Culture - Preliminary NO GROWTH AFTER 72 HOURS OF INCUBATION. 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 No arterial occlusion in the abdomen or pelvis. No CT findings are seen to suggest acute mesenteric ischemia. Likely moderate stenosis in the right common iliac artery. Areas of moderate to severe stenosis in the visualized portions of the right superficial femoral artery and likely moderate stenoses in the right common femoral and deep femoral arteries as well as in the left common external iliac, common femoral, deep femoral, and superficial femoral arteries. Correlate with clinical findings. If there is clinical concern for lower extremity ischemia, CTA runoff could be considered. Moderate circumferential thickening of the bladder wall is nonspecific. Correlate clinically to exclude cystitis. Nonspecific nondilated fluid-filled small bowel loops. Findings may be seen with ileus or enteritis in the appropriate clinical setting. No small bowel obstruction. Scattered colonic diverticula without adjacent inflammatory changes to suggest diverticulitis. Echocardiogram: Difficult acoustic sinus rhythm. Limited views obtained. Valves appear to be structurally normal. Left ventricular function is preserved at 55% with normal RV function. Doppler is unremarkable. No pericardial effusion masses or vegetations. Extremity venous study: No evidence of femoropopliteal deep vein thrombosis Lower Extremity CT: Dense arterial calcification. No acute osseous abnormality. Soft tissue thickening along the course of the achilles tendon, may be due to tendinopathy. Extremity Arterial Study: Findings consistent with hemodynamically significant stenosis /occlusion involving the left dorsalis pedis artery. Foot X-Ray: There is no evidence of acute fracture or dislocation. Possible soft-tissue ulceration of the posterior aspect of the foot. No radiographic findings of osteomyelitis. Vascular atherosclerotic calcifications are present. Single Organ Ultrasound: Unremarkable sonographic study of the right upper quadrant of the abdomen. Chest X-Ray: No acute cardiopulmonary disease. Wound consult Vascular consult MRSA screen: No MRSA detected Urine culture: No growth after 48 hours of incubation Blood culture: No growth after 48 hours of incubation pain management with Morphine and Tylenol Sputum culture Protonix 40 mg IV NS 1,000 MLS/HR ONE IV NS 60 MLS/HR Currently under empiric IV antibiotic (Clindamycin 600 MG IV q8h, previously on Zyvox, cefepime and ceftriaxone) Hydralazine injection 10 MG IV once Ordered foot MRI, pending due to patient's noncompliance. Now patient is isolated for probable tuberculosis. # Rule out Tuberculosis Patient was exposed to tuberculosis during hospital stay. Ordered QuantiFERON-TB Gold test Acid-fast bacillus (AFB) testing ID consult #Partial complex seizure #TIA/stroke with aphasia #Metabolic encephalopathy Patient was found altered, unable to answer any questions, possibly seizing on 09/15/25. Brain MRI ordered EEG: This is a normal EEG. No focal, lateralized, or epileptiform features are noted. Neurology consult Aspirin 81 MG PO daily Atorvastatin 40 MG PO hs Folic acid supplementation #History of CVA Lovenox 40 mg #Bipolar disorder #Schizophrenia Quetiapine 100 MG PO hs Olanzapine 2.5 MG PO tid Fluoxetine 40 MG PO daily Gabapentin 400 MG PO daily #Insomnia Temazepam 30 MG PO hsprn #Type 2 diabetes mellitus with hyperglycemia, uncontrolled Accu-check Dextrose 50 % Mild sliding scale Insulin lantus 20 Units SC hs #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 Monitor renal function Avoid nephrotoxic drugs #Questionable liver cirrhosis Diet: Soft diet PUD prophylaxis: protonix 40mg DVT prophylaxis: Lovenox 40mg Goals of care: Full code Plan discussed with patient Plan discussed with Dr. Mckee Plan discussed with: Patient, Other (RN, mother) My Orders My Orders Orders - UNIQUE TRAORE Procedure Category Date Status Time Quantiferon-Tb Gold LAB 09/19/25 In Process 12:32 Dietary Evaluation Review Comments: Advance diet to 2GNA CCHO-60 diet Monitorr PO intakes Expected Outcomes/Goals: controlled DM, prevent uremic syndrome Visit Coding STANDARD RES Billing Provider: RODNEY MCKEE MD Date of Service if different f: Sep 19, 2025 Common Visit Codes: 97055-[id number] INP/OBS CARE(HIGH) UNIQUE TRAORE RESIDENT Sep 19, 2025 14:51 ADAMA INIGUEZ RESIDENT Sep 19, 2025 19:53
--- NOTE | 2025-09-19 21:59 | DVHINCON2 ---
Date of service: Sep 19, 2025 Family History: Patient reports no known family medical history. Allergies: Coded Allergies: Egg Solids, Whole (Verified Allergy, Intermediate, VOMITING, 08/08/25) Home Meds Active Scripts Pantoprazole Sodium Sesquihydr (Pantoprazole Sodium) 40 Mg Tab, 40 MG PO DAILY for 7 Days, #7 TAB Prov:PRANAY YAN RESIDENT 09/05/25 Insulin Lispro (Humalog Kwikpen) 100 Unit/Ml Inj, 5 UNIT SC AC for 60 Days, #1 INJ Prov:PRANAY YAN RESIDENT 09/05/25 Insulin Aspart (Novolog Flexpen Relion) 100 Unit/Ml Inj, 1-10 UNIT SC TIDWM PRN, #1 INJ 1 Refill [id number]; 180=4u; 240=6u; 300=8u; 350=10u; >400-12u+ED Prov:SUKI ARAUJO MD 08/05/25 Insulin Glargine (Lantus Solostar) 100 Unit/Ml Inj, 15 UNIT SC BID for 30 Days, #3 INJ 1 Refill Prov:SUKI ARAUJO MD 08/05/25 Reported Medications Hydrocodone-Acetaminophen (Hydrocodone Bitartrate/AC 10-325 mg) 1 Tab Tab, 1 TAB PO Q8HPRN PRN for PAIN SCALE 7 THRU 10, TAB 08/08/25 Aspirin (Aspirin Low Dose) 81 Mg Chw, 1 TAB PO DAILY, #30 TAB 3 Refills 08/08/25 Baclofen (Baclofen) 20 Mg Tab, 1 TAB PO BIDP PRN for FOR MUSCLE SPASM for 50 Days, #100 04/02/25 Gabapentin (Gabapentin) 400 Mg Cap, 1 CAP PO TID for 90 Days, #270 04/02/25 Hydroxyzine HCl (Hydroxyzine Hydrochloride) 50 Mg Tab, 1 TAB PO TIDP PRN for ANXIETY for 30 Days, #90 04/02/25 Metoprolol Tartrate (LOPRESSOR TABLET) 50 Mg Tb, 1 TAB PO BID for 30 Days, #60 04/02/25 Amlodipine Besylate (Amlodipine Besylate) 10 Mg Tab, 1 TAB PO DAILY for 30 Days, #30 04/02/25 Olanzapine (OLANZAPINE) 2.5 Mg Tab, 1 TAB PO QPM for 30 Days, #30 04/02/25 Fluoxetine HCl (Fluoxetine HCl) 20 Mg Cap, 2 CAP PO QAM for 30 Days, #60 04/02/25 Apixaban Base (ELIQUIS) 5 Mg Tab, 1 TAB PO BID for 90 Days, #180 03/15/25 Ertugliflozin l-Pyroglutamic A (Steglatro) 5 Mg Tab, 1 TAB PO DAILY IN AM for 90 Days, #90 03/15/25 Quetiapine Fumerate (QUETIAPINE FUMARATE) 100 Mg Tab, 1 TAB PO HS for 30 Days, #30 03/15/25 Folic Acid (Folic Acid) 1 Mg Tab, 1 TAB PO DAILY for 90 Days, #90 03/15/25 Temazepam (Temazepam) 30 Mg Cap, 1 CAP PO HS for INSOMNIA for 30 Days, #30 03/15/25 Atorvastatin Calcium (ATORVASTATIN CALCIUM) 20 Mg Tab, 1.5 TAB PO DAILY for 90 Days, #135 30 MG PO IN THE MORNING 03/15/25 Losartan Potassium (Losartan Potassium) 50 Mg Tab, 1 TAB PO DAILY@BREAKFAST for 90 Days, #90 HOLD FOR BP < 110 OR HR <60 03/15/25 Current Medications Current Medications Medications (Trade) Dose Ordered Sig/Niesha Route PRN Reason Start Time Stop Time Status Last Admin Clindamycin Phosphate 50 ml @ 50 mls/hr Q8HR IV 09/18/25 22:00 09/19/25 16:56 Vital Signs Vital Signs Date Time Temp Pulse Resp B/P (MAP) Pulse Ox O2 Delivery O2 Flow Rate FiO2 09/19/25 21:07 98.2 89 16 118/72 (87) 98 98.2 09/19/25 08:10 Room Air* 0 21 Labs/Diagnostic Data Labs Test 09/19/25 17:43 09/19/25 13:49 09/19/25 05:02 09/17/25 05:08 Range/Units POC Glucose 120 H 70-106 mg/dl White Blood Count 4.2 L 4.4-10.8 10^3/uL Red Blood Count 3.67 L 4.5-5.90 10^6/uL Hemoglobin 10.8 L 13.5-17.5 g/dL Hematocrit 32.3 L 41.0-53.0 % Mean Corpuscular Volume 88.1 80.0-100.0 fL Mean Corpuscular Hemoglobin 29.3 28.0-32.0 pg Mean Corpuscular Hemoglobin Concent 33.3 32.0-36.0 g/dL Red Cell Distribution Width 14.2 11.8-14.3 % Platelet Count 382 140-450 10^3/uL Mean Platelet Volume 6.9 6.9-10.8 fL Neutrophils (%) (Auto) 51.4 37.0-80.0 % Lymphocytes (%) (Auto) 36.1 10.0-50.0 % Monocytes (%) (Auto) 6.5 0.0-12.0 % Eosinophils (%) (Auto) 4.8 0.0-7.0 % Basophils (%) (Auto) 1.2 0.0-2.0 % Neutrophils # (Auto) 2.1 1.6-8.6 10 ^3/uL Lymphocytes # (Auto) 1.5 0.4-5.4 10 ^3/uL Monocytes # (Auto) 0.3 0-1.3 10 ^3/uL Eosinophils # (Auto) 0.2 0-0.8 10 ^3/uL Basophils # (Auto) 0.1 0-0.2 10 ^3/uL Nucleated Red Blood Cells 0.1 % Sodium Level 142 136-145 mmol/L Potassium Level 3.7 3.5-5.1 mmol/L Chloride Level 108 H 98-107 mmol/L Carbon Dioxide Level 24 20-31 mmol/L Anion Gap 10 5-15 Blood Urea Nitrogen 14 9-23 mg/dL Creatinine 1.28 0.700-1.30 mg/dL Glomerular Filtration Rate Calc 64 >90 mL/min BUN/Creatinine Ratio 10.9 10.0-20.0 Serum Glucose 147 H 74-106 mg/dL Calcium Level 8.0 L 8.7-10.4 mg/dL Total Bilirubin 0.3 0.2-1.0 mg/dL Aspartate Amino Transferase (AST) 12 L 13-40 U/L Alanine Aminotransferase (ALT) 10 7-40 U/L Alkaline Phosphatase 77 46-116 U/L Total Protein 5.7 5.7-8.2 g/dL Albumin 3.3 3.2-4.8 g/dL Phosphorus Level 3.0 2.4-5.1 mg/dL Magnesium Level 1.9 1.6-2.6 mg/dL Ammonia 14 11-32 umol/L Test 09/16/25 09:45 09/16/25 09:15 09/16/25 05:27 09/15/25 23:44 Range/Units Vitamin B12 Level 1194 H 211-911 pg/mL Treponema pallidum Antibody Non-reactive Negative HIV (1&2) Antibody Negative Negative Influenza Type A Antigen Negative Negative Influenza Type B Antigen Negative Negative SARS-CoV-2 Antigen (Rapid) Negative NEGATIVE Lactic Acid Level 1.4 0.4-2.0 mmol/L Direct Bilirubin < 0.1 <0.3 mg/dL Blood Gas Specimen Type Arterial Blood Gas Sample Site Right radial Blood Gas Patient Temperature 37.0 Arterial Blood Date Drawn Arterial Blood pH 7.428 7.350-7.450 Arterial Blood Partial Pressure CO2 32.7 L 35.0-48.0 mmHg Arterial Blood Partial Pressure O2 74.8 L 83.0-108.0 mmHg Arterial Blood HCO3 21.1 21.0-28.0 mmol/L Arterial Blood Oxygen Saturation 94.8 94.0-98.0 % Arterial Blood Base Excess -2.5 L -2.0-3.0 mmol/L Arterial Blood Oxyhemoglobin 93.8 L 94.0-98.0 % Arterial Blood Carboxyhemoglobin 0.8 0.5-1.5 % Arterial Blood Methemoglobin 0.3 0.0-1.5 % Arterial Blood Deoxyhemoglobin 5.1 H 0.0-5.0 % Carmelo Test Yes Blood Gas Total Hemoglobin 12.40 L 13.5-17.5 g/dL Blood Gas Modality Room air FiO2 % 21.0 Test 09/15/25 22:06 09/10/25 08:00 09/09/25 18:56 09/09/25 18:23 Range/Units Creatine Kinase 71 46-171 U/L Troponin I High Sensitivity 3 L </=54 ng/L Lipase 31 12-53 U/L Urine Color Colorless Yellow Urine Clarity Clear Clear Urine pH 5.5 5.0-9.0 Urine Specific Rodman 1.010 1.001-1.035 Urine Protein 1+ H Negative Urine Ketones Negative Negative Urine Blood Negative Negative /uL Urine Nitrite Negative Negative Urine Bilirubin Negative Negative Urine Urobilinogen Normal Negative mg/dL Urine Leukocyte Esterase Negative Negative /uL Urine RBC <1 0 - 3 /hpf Urine Microscopic WBC < 1 0-3 /HPF Urine Squamous Epithelial Cells Few <5 /hpf Urine Bacteria None seen None Seen /hpf Urine Glucose 4+ H Normal mg/dL Urine Opiates Screen Neg NEGATIVE Urine Fentanyl Screen Neg NEGATIVE Urine Barbiturates Screen Neg NEGATIVE Urine Phencyclidine Screen Neg NEGATIVE Urine Amphetamines Screen Neg NEGATIVE Urine Benzodiazepines Screen Neg NEGATIVE Urine Cocaine Screen Neg NEGATIVE Urine Cannabinoids Screen Neg NEGATIVE Vitamin D 25-Hydroxy 33.9 30.0-100 ng/mL Prothrombin Time 11.1 9.3-11.8 sec Prothrombin Time INR 1.05 0.9-1.15 Activated Partial Thromboplast Time 28.0 24.5-34.5 SEC B-Type Natriuretic Peptide 101.03 0-100 pg/mL Triglycerides Level 209 H < 150 mg/dL Cholesterol Level 137 < 200 mg/dL LDL Cholesterol 67 < 100 mg/dL HDL Cholesterol 38 L 40-59 mg/dL Thyroid Stimulating Hormone (TSH) 2.22 0.55-4.78 uIU/mL Microbiology Date/Time Source Procedure Growth Status 09/16/25 10:47 Blood Blood Culture - Preliminary NO GROWTH AFTER 72 HOURS OF INCUBATION. Resulted 09/16/25 09:00 Voided Urine Urine Culture - Final Complete 09/16/25 04:20 Nose MRSA Screen - Final Complete Problems(with codes): (1) Nausea and vomiting (2) Severe sepsis (3) Metabolic encephalopathy (4) Non compliance w medication regimen (5) Abdominal pain (6) Uncontrolled diabetes mellitus with hyperglycemia (7) Diabetic foot infection Plan/Recommendation ASSESSMENT AND PLAN: ID Problem List: \-- Sepsis with hypotension, improved \-- Infected chronic nonhealing left ankle ulcer \-- Severe peripheral arterial disease with hemodynamically significant stenosis/occlusion of dorsalis pedis artery \-- Diabetes mellitus with history of severe episodes of DKA and suboptimal glycemic control \-- History of diabetic foot ulcer status post right above-knee amputation \-- Chronic kidney disease \-- Thyroid disease \-- Hypertension \-- Hyperlipidemia \-- History of alcoholic liver cirrhosis (liver ultrasound without sonographic cirrhosis this admission) \-- Bipolar disorder \-- Schizophrenia \-- Recent tuberculosis exposure, undergoing acute TB rule out Assessment This is a 59 y.o. male with past medical history of hypertension, hyperlipidemia, diabetes mellitus (with severe prior episodes of DKA), diabetic foot ulcer status post right above-knee amputation, thyroid disease, chronic k idney disease, alcoholic liver cirrhosis, bipolar disorder, and schizophrenia, who presents with hypotension and multiple episodes of non-bloody nausea and vomiting in the setting of a chronic nonhealing left ankle ulcer. He initially presented hypotensive to [facility], was sent to the ED, and subsequently developed persistent hypotension with MAPs in the 50s (blood pressu res down to 86/46), requiring transfer to the [facility] and initiation of vasopressors. Laboratory evaluation on admission showed WBC 7.9, hemoglobin ~11 g/dL, platelets 408, sodium 143, BUN 13, creatinine 1.19. UA with 4+ glucose but no pyuria; urine drug screen negative. Blood glucose has ranged from 149 up to the 270s. He has a chronic nonhealing left ankle ulcer with serous drainage and associated venous stasis-type rash. Arterial studies demonstrate hemodynamically significant disease of the dorsalis pedis artery, and CT angiography of the abdomen/pelvis demonstrates moderate to severe stenoses of multiple iliac and femoral arterial segments bilaterally, consistent with severe peripheral arterial disease likely contributing to impaired wound healing. Imaging of the left foot shows no radiographic evidence of osteomyelitis. Venous ultrasound shows no DVT. Blood cultures obtained on 09/09 showed no growth to date; urine culture is negative. HIV, syphilis, influenza, and COVID testing are negative. Chest imagin g and CT abdomen/pelvis show no alternative infectious source. Given the chronic left ankle ulcer, hemodynamic instability, and improvement with antibiotics, the nonhealing ulcer is the most likely infectious source of his sepsis and hypotension in the context of severe peripheral arterial disease. He has been treated with multiple antibiotic regimens: initially linezolid and cefepime, then transitioned to ceftriaxone and then to clindamycin. He is currently on clindamycin monotherapy but reports significant nausea, and clindamycin carries a higher risk for C. difficile. Infectious Disease was also consulted for evaluation of recent tuberculosis exposure. He reports a recent contact with an individual who tested positive for TB but is unsure about the timing or duration of exposure. He denies weight loss, hemoptysis, chronic cough, or fatigue. He is on room air. QuantiFERON Gold testing has been ordered, and AFB sputum collection has been initiated for an acute TB rule out. TB testing is pending at this time. Given his clinical stability, negative initial cultures, absence of radiographic evidence of osteomyelitis, and significant nausea with clindamycin, ceftriaxone monotherapy is reasonable to complete a finite course for soft tissue infection associated with his left ankle ulcer. Ongoing management of his severe peripheral arterial disease and improved glycemic control will be critical to allow wound healing and prevent recurrent infections. Plan: 1\. Sepsis with hypotension; infected chronic nonhealing left ankle ulcer; severe peripheral arterial disease \-- Source most consistent with infected chronic left ankle ulcer in the setting of severe peripheral arterial disease and diabetes, now clinically improved. \-- Blood cultures (09/09) with no growth to date; urine culture negative. No alternative clear source of infection identified on imaging or urinalysis. \-- Current antibiotic: clindamycin monotherapy; patient with significant nausea and clindamycin has higher risk for C. difficile. Antibiotic plan: \-- Discontinue clindamycin. \-- Initiate ceftriaxone 1 g IV q24h. \-- Complete a total 14-day course of therapy for soft tissue infection associated with the left ankle ulcer (inclusive of prior systemic antibiotic days as counted by primary team). \-- When clinically appropriate for discharge, may transition from IV ceftriaxone to an appropriate oral regimen per primary team and formulary (specific agent not specified in transcript) to complete the planned course. Local/wound and vascular management: \-- Continue local wound care to the left ankle ulcer while inpatient. \-- Ensure arrangements for ongoing outpatient wound care after discharge to reduce recurrence and promote healing. \-- Given severe peripheral arterial disease with significant arterial stenoses, recommend outpatient vascular evaluation to optimize revascularization strategy, as improved perfusion is essential for wound healing and prevention of recurrent infection. Glycemic control: \-- History of severe episodes of DKA and current blood glucose up to the 270s. \-- Recommend optimization of glycemic control with a target blood glucose <200 mg/dL to promote wound healing. \-- Follow-up with primary care (and/or endocrinology per primary team) after discharge for diabetes management and DKA prevention. Monitoring: \-- Continue to monitor hemodynamics, wound appearance, and systemic signs of infection while inpatient. \-- If clinical status worsens or new localizing signs appear, re-evaluate for osteomyelitis (e.g., advanced imaging, bone biopsy) and/or alternative infectious sources as clinically indicated (not specified in current transcript). 2\. Recent tuberculosis exposure; acute TB rule out \-- History of recent contact with an individual who tested positive for TB; specific duration and timing of exposure unknown. \-- Patient denies weight loss, hemoptysis, chronic cough, or fatigue. \-- On room air without respiratory compromise by report. \-- QuantiFERON Gold has been ordered; AFB sputum collection has been initiated for acute TB rule out. TB testing is pending. Plan: \-- Continue TB evaluation: \-- Follow up QuantiFERON Gold result. \-- Continue AFB sputum collection as per protocol while the patient can produce sputum. \-- Maintain current isolation precautions for suspected TB (specific type of isolation not specified in transcript) while TB rule out is in progress. \-- If QuantiFERON Gold is negative and AFB evaluation is not suggestive of active TB, and given lack of TB-related symptoms per transcript, TB exposure risk is likely low, and: \-- Patient may be cleared for discharge without further TB-specific follow-up. \-- Isolation precautions may be discontinued at that time, per hospital infection control policy. 3\. Diabetes mellitus with history of severe DKA; chronic kidney disease \-- Diabetes with poor control ([id number]) and prior severe DKA contributes significantly to impaired wound healing and infection risk. \-- CKD present (baseline creatinine 1.19 noted). Plan: \-- Defer specific inpatient insulin regimen and CKD management to the primary team. \-- Reinforce importance of keeping blood glucose <200 mg/dL to promote wound healing. \-- Recommend outpatient follow-up with primary care for diabetes management; consider endocrine referral per primary team (not specified in transcript). \-- Avoid nephrotoxic agents when possible; adjust antibiotic dosing as needed for CKD (ceftriaxone dosing per pharmacy/primary team). 4\. Chronic conditions (hypertension, hyperlipidemia, thyroid disease, alcoholic liver cirrhosis, bipolar disorder, schizophrenia) \-- These are longstanding comorbidities relevant to overall prognosis and vascular risk. \-- Liver ultrasound during this admission shows no remarkable findings and no sonographic evidence of cirrhosis despite history of alcoholic cirrhosis. \-- Patient has a history of severe alcohol abuse but reportedly quit alcohol 15 years ago; no current alcohol, tobacco, or IV drug use. Plan: \-- Continue home regimens for hypertension, hyperlipidemia, thyroid disease, and psychiatric diagnoses per primary team (specific medications not listed in transcript). \-- Maintain alcohol abstinence; no specific new liver-directed interventions from ID perspective given lack of acute hepatic findings. \-- Psychiatric medication management and follow-up per primary/psychiatry as appropriate (not specified in transcript). Isolation Precautions: \-- Isolation precautions in place for TB rule out (specific modality not specified in transcript). \-- Continue isolation while AFB sputums and QuantiFERON Gold are pending. \-- If QuantiFERON Gold is negative and TB rule out is completed per hospital protocol, isolation may be discontinued. Assessment and plan was discussed with the patient as written above: Not explicitly documented in transcript. Plan is subject to change pending incorporation of new incoming information/diagnostics. Updates may be added as addendum at the bottom (OR TOP) of this note. Thank you for the consult. Infectious Disease will continue to follow. Please contact Infectious Disease for any questions or concerns. Electronically signed by: Chanell Martínez MD, 09/20/2025 \ History: The patient's chart and available medications were reviewed in detail and the patient was seen and examined as per transcript. History obtained from: Not explicitly specified in transcript. aAron Del Angel is a 59 y.o. male with a past medical history of hypertension, hyperlipidemia, diabetes mellitus with diabetic foot ulcer status post right above-knee amputation, thyroid disease, chronic kidney disease, alcoholic liver cirrhosis, bipolar disorder, and schizophrenia, who presented with hypotension and multiple episodes of non-bloody vomiting and nausea. He also reports pain in his left ankle from a chronic nonhealing wound for which he receives outpatient wound care. He initially presented to [facility] with hypotension and was advised to proceed to the ED. In the hospital he developed persistent hypotension with MAPs in the 50s and blood pressure as low as 86/46, requiring transfer to the [facility] and vasopressor support. Laboratory data revealed WBC 7.9, hemoglobin ~11 g/dL, platelets 408, sodium 143, BUN 13, creatinine 1.19. UA showed 4+ glucose but no pyuria. Blood glucose values ranged from 149 up to the 270s. Urine drug screen was negative. Blood cultures obtained on 09/09 have shown no growth to date, and urine culture is negative. Testing for syphilis is nonreactive; HIV, influenza, and COVID testing are negative. TB screening is pending. He has a chronic left ankle ulcer with serous drainage and a venous stasis-type rash. There is also a past history of diabetic foot ulcer resulting in right above-knee amputation. Arterial ultrasound demonstrates hemodynamically significant stenosis/occlusion of the dorsalis pedis artery. CT angiography of the abdomen and pelvis shows moderate to severe stenosis of the right common iliac, right femoral arterial segments, and left common/external iliac, common femoral, deep femoral, and superficial femoral arteries, consistent with severe peripheral arterial disease. Imaging of the left foot does not show osteomyelitis. He has had multiple hospitalizations in the last six months. He has a history of severe alcohol abuse but quit approximately 15 years ago. He denies current alcohol use, smoking, or IV drug use. He lives in [place] with family. He reports a recent contact with an individual diagnosed with tuberculosis but is unsure of how long ago this occurred or details of the exposure. He denies weight loss, hemoptysis, chronic cough, or fatigue. He is currently undergoing an acute TB rule out with QuantiFERON Gold testing and AFB sputums. Antibiotic history this admission includes initial treatment with linezolid and cefepime, followed by ceftriaxone, and subsequently clindamycin monotherapy. He is currently on clindamycin, which has been associated with significant nausea. Review of Systems: A complete 10-system review of systems was not fully documented; available information is summarized below and otherwise negative or not discussed except as noted in the HPI or here. -CONSTITUTIONAL: Denies weight loss (per TB-related history). Fever and chills: Not discussed in transcript. -HEENT: Changes in vision and hearing: Not discussed. -RESPIRATORY: Denies chronic cough and hemoptysis. Shortness of breath: Not discussed. -CARDIOVASCULAR: Chest pain and palpitations: Not discussed. -GI: Reports non-bloody nausea and vomiting. Denies abdominal pain by implication of CT findings; explicit denial not documented. Diarrhea: Not discussed (risk of C. difficile noted as a concern with clindamycin but no diarrhea reported). -: Dysuria and urinary frequency: Not discussed; UA without pyuria. -MSK: Left ankle pain associated with chronic wound. Other myalgias or joint pain: Not discussed. -SKIN: Chronic left ankle ulcer with serous secretion and venous stasis-type rash. No generalized rash or pruritus otherwise documented. -NEUROLOGICAL: Headache, syncope: Not discussed. No acute intracranial abnormality on CT head. -PSYCHIATRIC: History of bipolar disorder and schizophrenia. Recent changes in mood, anxiety, or depression: Not discussed. -ENDOCRINE: Diabetes with prior severe DKA and current hyperglycemia; thyroid disease. Additional endocrine ROS not discussed. Past Medical History: From transcript: \-- Hypertension \-- Hyperlipidemia \-- Diabetes mellitus with diabetic foot ulcer; history of severe DKA \-- Chronic nonhealing left ankle wound/ulcer \-- Status post right above-knee amputation (due to diabetic foot ulcer) \-- Thyroid disease (type not specified) \-- Chronic kidney disease \-- Alcoholic liver cirrhosis (liver ultrasound this admission without sonographic cirrhosis) \-- Bipolar disorder \-- Schizophrenia \-- Severe peripheral arterial disease (documented by arterial imaging) Other past medical history: Not provided in transcript. Past Surgical History: From transcript: \-- Right above-knee amputation Additional surgical history: Not provided in transcript. Home Medications: Specific outpatient medications and doses: Not provided in transcript. Inpatient / Recent Antimicrobials (this admission): \-- Linezolid (initial regimen; duration not specified) \-- Cefepime (initial regimen; duration not specified) \-- Ceftriaxone (intermediate regimen; duration not specified) \-- Clindamycin (current regimen at time of consult; monotherapy; associated with nausea) Other inpatient medications: Not provided in transcript. Allergies: Allergies: Not provided in transcript. Family History: From transcript: \-- Mother with coronary artery disease Other family history: Not provided in transcript. Social History: From transcript: \-- Residence: Lives in [place] with family. \-- Tobacco: Denies smoking. \-- Alcohol: History of severe alcohol abuse; quit approximately 15 years ago. Currently denies alcohol use. \-- Illicit drugs: Denies IV drug use. Other substances not discussed. \-- Occupational history: Not provided in transcript. \-- Sexual history: Not provided in transcript. \-- Social determinants of health: Not discussed in transcript. Objective: Vital Signs: Specific arrival vs. most recent times are not clearly distinguished in transcript. Available values: \-- Temperature: 97.3 F \-- Pulse: 78 bpm \-- Respiratory rate: 18 breaths/min \-- Blood pressure: 113 over (diastolic value not clearly captured in transcript) \-- SpO2: 100% on room air Hemodynamic instability documented earlier in course: \-- MAPs in the 50s with blood pressures as low as 86/46; another value recorded as 84 systolic (exact diastolic incomplete in transcript). These episodes prompted transfer to the [facility] and initiation of vasopressors. Admission Weight / BMI: \-- Not provided in transcript. Physical Exam: General: NAD Neck: Supple. No masses. HEENT: PERRL. Normal lids and conjunctiva. Moist mucous membranes. Oropharynx without lesions, exudates or excessive erythema. Normal appearance of the external aspects of the nose and ears. Heart: Regular rhythm, normal rate. No murmur. No lower extremity edema. Lungs: Normal respiratory effort. Clear to auscultation bilaterally. No wheezes. No crackles. Abdomen: Soft. Non-tender. Non-distended. No masses or abdominal hernia. Msk: Right above-knee amputation. No digital cyanosis of remaining extremities. Normal strength and tone in remaining limbs (extent of detailed strength testing beyond this not provided in transcript). Skin: Warm and dry, no rashes except at left ankle. Chronic left ankle ulcer with serous secretion and associated venous stasis-type rash. Neuro: Alert. No facial droop or slurred speech. Extra-ocular movements intact. Sensation intact to soft touch in all 4 limbs (detailed distribution not provided in transcript). Psych: Appropriate mood. Full affect. Oriented to person, place, time, and situation (formal orientation exam not explicitly documented but no confusion noted in transcript). Lines: Active lines: Not specified in transcript. No central venous or arterial lines were explicitly documented. Diagnostic Studies: Available diagnostic studies were reviewed personally as per transcript. Significant relevant results and findings are outlined below and/or addressed in the Assessment and Plan above. Laboratory Data (from transcript): \-- WBC: 7.9 K/L \-- Hemoglobin: ~1111.1 g/dL \-- Platelets: 408 K/L \-- Sodium: 143 mmol/L \-- BUN: 13 mg/dL \-- Creatinine: 1.19 mg/dL \-- Blood glucose: 149 mg/dL up to the 270s \-- Urinalysis: 4+ glucose; no pyuria \-- Urine drug screen: Negative \-- Syphilis serology: Nonreactive \-- HIV: Negative \-- Influenza: Negative \-- COVID: Negative \-- TB screening: QuantiFERON Gold ordered; AFB sputums initiated; results pending Microbiology: \-- Blood cultures (09/09): No growth to date. \-- Urine culture: Negative. Pertinent Imaging: From transcript (paraphrased for clarity; dates not provided): Chest X-ray: \-- No acute cardiopulmonary disease. Left Foot X-ray: \-- No evidence of acute fracture or dislocation. \-- Possible soft tissue ulceration at the posterior aspect of the foot. \-- No radiographic findings of osteomyelitis. Arterial Ultrasound Studies (lower extremity): \-- Findings consistent with hemodynamically significant stenosis/occlusion involving the dorsalis pedis artery. Liver Ultrasound: \-- No remarkable findings. \-- No evidence of cirrhosis. CT Lower Extremity: \-- Soft tissue thickening along the course of the Achilles tendon, possibly due to tendinopathy. Venous Ultrasound (left leg): \-- No evidence of DVT in the left leg. CT Abdomen and Pelvis (for intractable nausea and vomiting): \-- No acute abdominal or pelvic abnormality noted. CT Head: \-- No CT evidence for acute intracranial abnormality. Abdominal/Pelvic Angiography (to rule out mesenteric ischemia): \-- No arterial occlusion of the abdomen or pelvis. \-- No findings to suggest acute mesenteric ischemia. \-- Moderate stenosis of the right common iliac artery. \-- Moderate to severe stenosis of portions of the right femoral artery. \-- Moderate stenosis of the right common femoral and deep femoral arteries. \-- Moderate stenosis involving left common/external iliac, common femoral, deep femoral, and superficial femoral arteries. \-- Moderate circumferential thickening of the bladder wall (nonspecific). \-- Nondilated fluid-filled small bowel loops; findings may be seen with ileus or enteritis; no small bowel obstruction. \-- Scattered colonic diverticula without adjacent inflammatory changes; no diverticulitis. No additional diagnostic studies are detailed in the transcript. Plan discussed with: Patient CHANELL MARTÍNEZ MD Sep 19, 2025 21:59
[2025-09-20] VITALS (7 sets, daily range): BP systolic 120–137; BP diastolic 73–78; PULSE 84–103; RESP 16–18; TEMP 97.7–99.2; O2SAT 98–100
[2025-09-20 08:06] LABS: Hematocrit 32.2 % (41.0-53.0); Hemoglobin 10.7 g/dL (13.5-17.5); Mean Corpuscular Hemoglobin 29.9 pg (28.0-32.0); Mean Corpuscular Volume 90.0 fL (80.0-100.0); Nucleated Red Blood Cells % 0.1 %
[2025-09-20 08:46] LABS: Anion Gap 12 (5-15); Carbon Dioxide 22 mmol/L (20-31); Potassium 4.4 mmol/L (3.5-5.1); Sodium 143 mmol/L (136-145)
[2025-09-20 08:50] LABS: Calcium 8.2 mg/dL (8.7-10.4); Chloride 109 mmol/L (98-107)
[2025-09-20 08:52] LABS: BUN/Creatinine Ratio 10.9 (10.0-20.0); Blood Urea Nitrogen 13 mg/dL (9-23); Glucose 149 mg/dL (74-106)
--- NOTE | 2025-09-20 17:40 | DVHPN2 ---
Subjective Patient is currently in isolation for ruling out tuberculosis. Changes from previous H/P or p: No Changes Objective Vitals Vital Signs Date Time Temp Pulse Resp B/P (MAP) Pulse Ox O2 Delivery O2 Flow Rate FiO2 09/20/25 16:46 98.4 96 16 137/75 (95) 99 98.4 09/20/25 08:00 Room Air* 0 21 Intake/Output Intake and Output 09/20/25 07:00 Intake Total 3312 ml Output Total 2425 ml Balance 887 ml Intake Oral 3012 ml IV Total 300 ml Output Urine Total 2425 ml Exam HEENT pupils are reactive Neck is supple CV is S1-S2 regular rate and rhythm Respiratory diminished breath sounds bilateral lung bases GI positive bowel sounds Extremities left lower extremity no edema, right lower extremity above-knee amputation 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 Medications Current Medications Medications Dose Ordered Sig/Niesha Route Start Time Stop Time Status Last Admin Dose Admin Acetaminophen 325 mg Q4HP PRN PO 09/09/25 18:45 09/13/25 19:31 325 MG Ondansetron HCl 4 mg Q4HP PRN IV 09/09/25 18:45 Enoxaparin Sodium 40 mg DAILY SC 09/10/25 10:00 09/20/25 10:40 40 MG Diagnostic Test (Pha) 1 strip Q6HR 09/10/25 00:00 09/20/25 12:17 1 STRIP Insulin Human Regular Q6HR SC 09/10/25 00:00 09/20/25 12:28 3 UNITS Dextrose 50 ml UD PRN IV 09/09/25 18:45 Quetiapine Fumarate 100 mg HS PO 09/10/25 22:00 09/19/25 22:20 100 MG Aspirin 81 mg DAILY PO 09/10/25 10:00 09/20/25 10:40 81 MG Insulin Glargine 20 units HS SC 09/15/25 22:00 09/19/25 22:36 20 UNITS Atorvastatin Calcium 40 mg HS PO 09/15/25 22:00 09/19/25 22:20 40 MG Sodium Chloride 1,000 ml @ 100 mls/hr Q10H IV 09/15/25 23:30 09/20/25 16:34 100 MLS/HR Lorazepam 1 mg Q5MINP PRN IV 09/16/25 00:00 09/16/25 01:35 1 MG Magnesium Sulfate/ Dextrose 100 ml @ 100 mls/hr Q1HR IV 09/16/25 10:00 09/16/25 11:59 UNV Pantoprazole Sodium 40 mg DAILY IV 09/16/25 10:00 09/20/25 10:39 40 MG Lorazepam 1 mg ONCE PRN IV 09/16/25 10:15 09/17/25 10:09 1 MG Docusate Sodium 100 mg BID PO 09/16/25 22:00 09/20/25 10:39 100 MG Folic Acid 1 mg DAILY PO 09/17/25 10:00 09/20/25 10:40 1 MG Olanzapine 2.5 mg HS PO 09/17/25 22:00 09/19/25 22:20 2.5 MG Fluoxetine HCl 40 mg DAILY PO 09/18/25 10:00 09/20/25 10:40 40 MG Gabapentin 400 mg TID PO 09/17/25 22:00 09/20/25 16:34 400 MG Temazepam 30 mg HSPRN PRN PO 09/17/25 17:15 09/19/25 00:00 30 MG Clindamycin Phosphate 50 ml @ 50 mls/hr Q8HR IV 09/18/25 22:00 09/20/25 16:34 50 MLS/HR Laboratory Results Laboratory Tests 09/20/25 06:42 Chemistry Test 09/20/25 06:42 Calcium Level 8.2 mg/dL (8.7-10.4) L Urinalysis Test 09/10/25 08:00 Urine Color Colorless (Yellow) Urine Clarity Clear (Clear) Urine pH 5.5 (5.0-9.0) Urine Specific [employer] [place] 1.010 (1.001-1.035) Urine Protein 1+ (Negative) H Urine Ketones Negative (Negative) Urine Blood Negative /uL (Negative) Urine Nitrite Negative (Negative) Urine Bilirubin Negative (Negative) Urine Urobilinogen Normal mg/dL (Negative) Urine Leukocyte Esterase Negative /uL (Negative) Urine RBC <1 /hpf (0 - 3) Urine Microscopic WBC < 1 /HPF (0-3) Urine Squamous Epithelial Cells Few /hpf (<5) Urine Bacteria None seen /hpf (None Seen) Urine Glucose 4+ mg/dL (Normal) H Microbiology Microbiology Date/Time Source Procedure Growth Status 09/16/25 10:47 Blood Blood Culture - Preliminary NO GROWTH AFTER 72 HOURS OF INCUBATION. Resulted 09/16/25 09:00 Voided Urine Urine Culture - Final Complete 09/16/25 04:20 Nose MRSA Screen - Final Complete Assessment/Plan Assessment/Plan 59-year-old male with a known history of diabetes mellitus type 2, hypertension, dyslipidemia, peripheral vascular disease, bipolar disorder, schizophrenia, anxiety disorder who initially presented to the hospital as he was sent by continue the clinic for low blood pressure associated with the nausea and vomiting found to have 1. Intractable nausea and vomiting, ruled out acute mesenteric ischemia 2. Suspected acute ileitis and enteritis 3. Diabetic foot wound left lower extremity 4. Severe peripheral vascular disease status post above-knee amputation of the right limb 5. Partial complex seizure 6. TIA with a aphasia 7. Metabolic encephalopathy 8. Tuberculosis exposure ruled out active TB -reverse isolation, follow up QuantiFERON test, follow up sputum for AFB x3, Infectious Disease consultation. Plan discussed with: Patient Date of Service: Sep 20, 2025 Billing Provider: ELSI SOW MD Common Visit Codes: 21870-[id number] INP/OBS CARE(HIGH) ELSI SOW MD Sep 20, 2025 17:40
--- NOTE | 2025-09-20 20:55 | DVHPN2 ---
Progress Note - Dictate Date Seen: Sep 20, 2025 Medical Necessity Reason Pt with a Central, PICC or Fol: Yes The following are medically ne: Roach Catheter Subjective Mr. Del Angel is 59 years old gentleman with a history of hypertension, diabetes, chronic kidney failure, stroke, peripheral arterial disease, schizophrenia, bipolar disorder, questionable liver cirrhosis, he came to the [facility] on 09/09/2025 with a chief complaint of low blood pressure. I have seen and examined the patient, I have discussed with his nurse, he is doing fine, alert and fully oriented, watching TV in bed, no new complaints Treponema pallidum antibody, 09/16/2025: Nonreactive HIV I & II antibody, 09/16/2025: Negative UDS, 09/10/2025: Negative Urinalysis, 09/10/2025: Unremarkable WBC/HB/PLT/MCV, 09/16/2025: 7.9/11.1/408/86.5 BMP 09/16/2025: Unremarkable Lactic acid, 09/16/2025: 6.4, 1.4 Liver function tests, 08/17/2025: Unremarkable Ammonia, 09/09/2025: 14 TG/HDL/LDL/HDL, 09/09/25: 209/137/67/38 Vitamin B12, 09/09/2025: 1353 EEG, 09/16/25: Normal CT head, 09/15/2025: No CT evidence of an acute intracranial abnormality. vital signs Vital Sign Date Time Temp Pulse Resp B/P (MAP) Pulse Ox O2 Delivery O2 Flow Rate FiO2 09/20/25 16:46 98.4 96 16 137/75 (95) 99 98.4 09/20/25 08:00 Room Air* 0 21 Total Intake and Output 09/19/25 09/19/25 09/20/25 15:00 23:00 07:00 Intake Total 1622 ml 1690 ml Output Total 1125 ml 1300 ml Balance 497 ml 390 ml medications Current Medications Medications Dose Ordered Sig/Niesha Route Start Time Stop Time Status Last Admin Dose Admin Acetaminophen 325 mg Q4HP PRN PO 09/09/25 18:45 09/13/25 19:31 325 MG Ondansetron HCl 4 mg Q4HP PRN IV 09/09/25 18:45 Enoxaparin Sodium 40 mg DAILY SC 09/10/25 10:00 09/20/25 10:40 40 MG Diagnostic Test (Pha) 1 strip Q6HR 09/10/25 00:00 09/20/25 18:00 1 STRIP Insulin Human Regular Q6HR SC 09/10/25 00:00 09/20/25 12:28 3 UNITS Dextrose 50 ml UD PRN IV 09/09/25 18:45 Quetiapine Fumarate 100 mg HS PO 09/10/25 22:00 09/19/25 22:20 100 MG Aspirin 81 mg DAILY PO 09/10/25 10:00 09/20/25 10:40 81 MG Insulin Glargine 20 units HS SC 09/15/25 22:00 09/19/25 22:36 20 UNITS Atorvastatin Calcium 40 mg HS PO 09/15/25 22:00 09/19/25 22:20 40 MG Sodium Chloride 1,000 ml @ 100 mls/hr Q10H IV 09/15/25 23:30 09/20/25 16:34 100 MLS/HR Lorazepam 1 mg Q5MINP PRN IV 09/16/25 00:00 09/16/25 01:35 1 MG Magnesium Sulfate/ Dextrose 100 ml @ 100 mls/hr Q1HR IV 09/16/25 10:00 09/16/25 11:59 UNV Pantoprazole Sodium 40 mg DAILY IV 09/16/25 10:00 09/20/25 10:39 40 MG Lorazepam 1 mg ONCE PRN IV 09/16/25 10:15 09/17/25 10:09 1 MG Docusate Sodium 100 mg BID PO 09/16/25 22:00 09/20/25 10:39 100 MG Folic Acid 1 mg DAILY PO 09/17/25 10:00 09/20/25 10:40 1 MG Olanzapine 2.5 mg HS PO 09/17/25 22:00 09/19/25 22:20 2.5 MG Fluoxetine HCl 40 mg DAILY PO 09/18/25 10:00 09/20/25 10:40 40 MG Gabapentin 400 mg TID PO 09/17/25 22:00 09/20/25 16:34 400 MG Temazepam 30 mg HSPRN PRN PO 09/17/25 17:15 09/19/25 00:00 30 MG Clindamycin Phosphate 50 ml @ 50 mls/hr Q8HR IV 09/18/25 22:00 09/20/25 16:34 50 MLS/HR objective General: the patient is well developed and nourished. No acute distress. MUSCULOSKELETAL EXAM: Status post right AKA MENTAL STATUS: Subjective SPEECH, LANGUAGE, HIGHER CORTICAL FUNCTION: no aphasia or dysathria. CRANIAL NERVES: Pupils are equal, round and reactive. EOMs full and conjugate. No nystagmus. Facial sensation intact in all three divisions bilaterally. Mandibular strength intact. Facial muscles symmetrical and strength intact. Tongue midline. No fasciculations or atrophy. SENSATION: Sensation to touch and pinprick is unremarkable MOTOR: Normal tone in the upper and lower extremity. Normal muscle bulk. No fasciculations. No abnormal movements or posturing. Muscle strength of the major groups in the extremities is 5/5. REFLEXES: Deep tendon reflexes are symmetrical. No pathological reflexes. CEREBELLAR/COORDINATION: Finger to nose is normal bilaterally laboratory and microbiology Laboratory Tests 09/20/25 06:42 Test 09/20/25 06:42 Range/Units Serum Glucose 149 H 74-106 mg/dL Problem List Episodic event at 09/15/25 21:51 Partial complex seizure TIA/stroke with aphasia Metabolic encephalopathy Peripheral arterial disease Tuberculosis exposure Assessment/Plan Monitoring Supportive treatment Telemetry QuantiFERON-TB Gold MRI brain scan (he was not cooperative) Aspirin 81 mg daily Lipitor 40 mg daily Folic acid supplementation GI prophylax/Protonix DVT/Lovenox 40 mg subQ daily Infectious disease on case More medication per clinical course This medical document was created using an electronic medical record system with [employer] dictation system. Although this document has been carefully reviewed, there may still be some phonetic and typographical errors. These areas are purely typographical due to imperfections of the software programs, and do not reflect any compromise in the patient's medical care. Prognosis poor Dietary Evaluation Review Comments: Advance diet to 2GNA CCHO-60 diet Monitorr PO intakes Expected Outcomes/Goals: controlled DM, prevent uremic syndrome Plan discussed with: Patient, Other PEDRO MIMS MD Sep 20, 2025 20:55
--- NOTE | 2025-09-20 23:09 | DVHPN2 ---
Consult Progress Note Objective vital signs Vital Sign Date Time Temp Pulse Resp B/P (MAP) Pulse Ox O2 Delivery O2 Flow Rate FiO2 09/20/25 21:00 98.6 96 16 128/74 (92) 99 98.6 09/20/25 08:00 Room Air* 0 21 Total Intake and Output 09/19/25 09/19/25 09/20/25 15:00 23:00 07:00 Intake Total 1622 ml 1690 ml Output Total 1125 ml 1300 ml Balance 497 ml 390 ml medications Current Medications Medications Dose Ordered Sig/Niesha Route Start Time Stop Time Status Last Admin Dose Admin Acetaminophen 325 mg Q4HP PRN PO 09/09/25 18:45 09/13/25 19:31 325 MG Ondansetron HCl 4 mg Q4HP PRN IV 09/09/25 18:45 Enoxaparin Sodium 40 mg DAILY SC 09/10/25 10:00 09/20/25 10:40 40 MG Diagnostic Test (Pha) 1 strip Q6HR 09/10/25 00:00 09/20/25 18:00 1 STRIP Insulin Human Regular Q6HR SC 09/10/25 00:00 09/20/25 12:28 3 UNITS Dextrose 50 ml UD PRN IV 09/09/25 18:45 Quetiapine Fumarate 100 mg HS PO 09/10/25 22:00 09/20/25 22:18 100 MG Aspirin 81 mg DAILY PO 09/10/25 10:00 09/20/25 10:40 81 MG Insulin Glargine 20 units HS SC 09/15/25 22:00 09/20/25 22:19 20 UNITS Atorvastatin Calcium 40 mg HS PO 09/15/25 22:00 09/20/25 22:18 40 MG Sodium Chloride 1,000 ml @ 100 mls/hr Q10H IV 09/15/25 23:30 09/20/25 16:34 100 MLS/HR Lorazepam 1 mg Q5MINP PRN IV 09/16/25 00:00 09/16/25 01:35 1 MG Magnesium Sulfate/ Dextrose 100 ml @ 100 mls/hr Q1HR IV 09/16/25 10:00 09/16/25 11:59 UNV Pantoprazole Sodium 40 mg DAILY IV 09/16/25 10:00 09/20/25 10:39 40 MG Lorazepam 1 mg ONCE PRN IV 09/16/25 10:15 09/17/25 10:09 1 MG Docusate Sodium 100 mg BID PO 09/16/25 22:00 09/20/25 22:18 100 MG Folic Acid 1 mg DAILY PO 09/17/25 10:00 09/20/25 10:40 1 MG Olanzapine 2.5 mg HS PO 09/17/25 22:00 09/20/25 22:24 2.5 MG Fluoxetine HCl 40 mg DAILY PO 09/18/25 10:00 09/20/25 10:40 40 MG Gabapentin 400 mg TID PO 09/17/25 22:00 09/20/25 22:18 400 MG Temazepam 30 mg HSPRN PRN PO 09/17/25 17:15 09/20/25 22:25 30 MG Ceftriaxone Sodium 50 ml @ 100 mls/hr DAILY@09 IV 09/21/25 09:00 laboratory and microbiology Laboratory Tests 09/20/25 06:42 Test 09/20/25 06:42 Range/Units Serum Glucose 149 H 74-106 mg/dL Dietary Evaluation Review Comments: Advance diet to 2GNA CCHO-60 diet Monitorr PO intakes Expected Outcomes/Goals: controlled DM, prevent uremic syndrome CHANELL PICKERING MD Sep 20, 2025 23:09
[2025-09-21] VITALS (8 sets, daily range): BP systolic 107–151; BP diastolic 70–87; PULSE 74–92; RESP 16–17; TEMP 97.4–98.3; O2SAT 94–99
--- NOTE | 2025-09-21 14:00 | DVHPNRES ---
Progress Note Date Seen: Sep 21, 2025 Resident Creating Document: UNIQUE TRAORE Medical Necessity Reason Pt with a Central, PICC or Fol: Yes The following are medically ne: Roach Catheter Subjective Review of Systems This is a 59-year-old male who has past medical history of Hypertension, dyslipidemia, diabetes, diabetic feet status post [id number] amputation of right limb and requires home health services for left ankle, thyroid disease, chronic kidney disease, patient believes he has alcoholic liver cirrhosis but imaging ruled it out, bipolar disorder/schizophrenia, CVA. The patient was sent from his [facility] clinic to the [facility] ED for evaluation of hypotension. He reports multiple episodes of non-bloody vomiting with food content and associated nausea that began on Monday. He also complains of a non- healing left ankle wound for 3.5 years, which has been gradually improving with home health care. At 6:37 PM, the patient met criteria for sepsis, and sepsis protocol was initiated. On evaluation in the ED, patient is afebrile, vitals are stable, blood pressure was 117/65 mmHg. Initial labs show normocytic anemia, creatinine 1.75 and serum glucose 271. Foot X-ray shows possible soft-tissue ulceration of the posterior aspect of the foot and vascular atherosclerotic calcifications. The patient was started on IV antibiotics and IV fluids. Patient is admitted for further evaluation and management. On 09/11/25, The patient reports improvement in his symptoms. Patient is afebrile, tachycardic and hypertensive (145/93 mmHg). Labs show normocytic anemia, serum 206. A wound consult was received for the patients left foot wound. On 09/12/25, The patient has no new complaints. Vascular surgery consult is still pending. On 09/14/25, An ultrasound of the left lower extremity shows no evidence of femoropopliteal deep vein thrombosis. Vascular consult is pending for evaluation of peripheral arterial disease of the left lower extremity. Acute kidney injury has resolved. On 09/15/25, Patient reports feeling better than yesterday, but continue to experience tachycardia, which is concerning for ongoing sepsis. Patient without IV access and not taking prescribed psychiatric medications. Patient repeatedly refused IV placement, telemetry monitoring, and all care. Rapid response called due to ALOC and seizure. On 09/17/25, Patient has remained impulsive and disoriented. EEG completed and results negative for seizure and pending Brain MRI. Diet was changed to soft diet, and the patient is receiving oral medications including temazepam, fluoxetine, and olanzapine, which he has been able to take as prescribed. On 09/18/25, Patient was transferred to the telemetry unit and attached to a telemetry box. The patient was awake, alert, and oriented to person and place with even and unlabored breathing and no distress noted. The scheduled brain MRI was canceled because the patient was unable to complete the procedure. Due to an unknown source of infection, IV clindamycin therapy was initiated. On 09/19/25, The patient reports recent contact with an individual who tested positive for tuberculosis. A QuantiFERON-TB Gold test has been ordered to evaluate for latent or active TB infection. Acid-fast bacillus (AFB) testing has also been initiated. The patient has been placed in isolation as a precautionary measure. On 09/21/25, Patient was seen and examined at bedside. Overnight events were reviewed. The patient reports improvement in his symptoms, downgrade from TELE to Medsur. Stated with ceftriaxone. Possible discharge tomorrow. Surgical history: Right [id number] amputation Family history: Mother had heart disease Social history: Lives in [place] with family (next of kin is Kareem, cousin). Ex ethanol abuse (three bottles of Tequila per day for25 years) quit15 years ago. Denies current tobacco, alcohol and other drug abuse Allergies: Denies Home medication: Denies Patient seen and examined at bedside. Patient is alert and oriented to time, place person and responding to all questions. Constitutional: No chills, No sore throat Eyes: No Pain, No Vision change, No Conjunctivae inflammation, No Eyelid inflammation, No Other, No Redness ENT: No Ear pain, No Ear discharge, No Nose pain, No Nose discharge, No Nose congestion, No Mouth pain, No Mouth swelling, No Throat pain, No Throat swelling, No Other Cardiovascular: No Chest Pain, No Palpitations, No Orthopnea, No Paroxysmal No Dyspnea, No Edema, No Lt Headedness, No Other Respiratory: No Cough, No Dry, No Shortness of breath, No SOB with exertion, No Wheezing, No Hemoptysis, No Pleuritic Pain, No Sputum, No Other Gastrointestinal: No Nausea, No Vomiting, No Abdominal Pain, No Diarrhea, No Constipation, No Melena, No Hematochezia, No Other Genitourinary: No Dysuria, No Frequency, No Incontinence, No Hematuria, No Retention, No Other Musculoskeletal: No other, No neck pain, No shoulder pain, No arm pain, No back pain, No hand pain, No leg pain, No foot pain Skin: No Rash, No Lesions, No Jaundice, No Bruising, No Other Objective vital signs Vital Sign Date Time Temp Pulse Resp B/P (MAP) Pulse Ox O2 Delivery O2 Flow Rate FiO2 09/21/25 08:44 98.2 89 16 107/72 (84) 94 98.2 09/21/25 08:00 Room Air* 0 21 Total Intake and Output 09/20/25 09/20/25 09/21/25 15:00 23:00 07:00 Intake Total 1140 ml 240 ml Output Total 1200 ml 1700 ml Balance -60 ml -1460 ml medications Current Medications Medications Dose Ordered Sig/Niesha Route Start Time Stop Time Status Last Admin Dose Admin Acetaminophen 325 mg Q4HP PRN PO 09/09/25 18:45 09/13/25 19:31 325 MG Ondansetron HCl 4 mg Q4HP PRN IV 09/09/25 18:45 Diagnostic Test (Pha) 1 strip Q6HR 09/10/25 00:00 09/21/25 12:00 1 STRIP Insulin Human Regular Q6HR SC 09/10/25 00:00 09/21/25 13:01 6 UNITS Dextrose 50 ml UD PRN IV 09/09/25 18:45 Quetiapine Fumarate 100 mg HS PO 09/10/25 22:00 09/20/25 22:18 100 MG Aspirin 81 mg DAILY PO 09/10/25 10:00 09/21/25 09:09 81 MG Insulin Glargine 20 units HS SC 09/15/25 22:00 09/20/25 22:19 20 UNITS Atorvastatin Calcium 40 mg HS PO 09/15/25 22:00 09/20/25 22:18 40 MG Sodium Chloride 1,000 ml @ 100 mls/hr Q10H IV 09/15/25 23:30 09/20/25 16:34 100 MLS/HR Lorazepam 1 mg Q5MINP PRN IV 09/16/25 00:00 09/16/25 01:35 1 MG Magnesium Sulfate/ Dextrose 100 ml @ 100 mls/hr Q1HR IV 09/16/25 10:00 09/16/25 11:59 UNV Pantoprazole Sodium 40 mg DAILY IV 09/16/25 10:00 09/21/25 09:09 40 MG Lorazepam 1 mg ONCE PRN IV 09/16/25 10:15 09/17/25 10:09 1 MG Docusate Sodium 100 mg BID PO 09/16/25 22:00 09/21/25 09:09 100 MG Folic Acid 1 mg DAILY PO 09/17/25 10:00 09/21/25 09:09 1 MG Olanzapine 2.5 mg HS PO 09/17/25 22:00 09/20/25 22:24 2.5 MG Fluoxetine HCl 40 mg DAILY PO 09/18/25 10:00 09/21/25 09:08 40 MG Gabapentin 400 mg TID PO 09/17/25 22:00 09/21/25 06:36 400 MG Temazepam 30 mg HSPRN PRN PO 09/17/25 17:15 09/20/25 22:25 30 MG Ceftriaxone Sodium 50 ml @ 100 mls/hr DAILY@09 IV 09/21/25 09:00 09/21/25 09:07 100 MLS/HR Examination General Appearance: Cooperative. Well developed. Well nourished. NAD Head Exam: Normal inspection Neck Exam: Normal inspection. Non-tender. Normal alignment Pulmonary/Respiratory: Chest non-tender. Clear bilateral breath sounds, no crackles, no wheezing. Cardiovascular/Chest: Regular rate and rhythm. No murmurs. No JVD. Peripheral Pulses: 2+ Radial (R). 2+ Radial (L). absent Pedal pulse on left side (L). Can not evaluate right lower limb pulses due to right [id number]-vmqf amputation Abdominal Exam: Normal bowel sounds. Soft. normal abdomen, no visible veins, Nontender. No hepatospenomegaly. No masses Ankle Exam: Negative ankle edema Lower extremities: Negative lower extremity edema Neuro/Mental Status: A&O x4. Coherent. Thoughts/Psych: Normal thought pattern. Appropriate mood and affect. Good judgement and insight MSK/skin exam: Mobilizes 3 limbs has above the knee amputation on right limb with no erythema nor discharge. Skin is dry and warm. Dry ulcer in left ankle, no secretion laboratory and microbiology Laboratory Tests 09/20/25 06:42 Test 09/20/25 06:42 Range/Units Serum Glucose 149 H 74-106 mg/dL Microbiology Date/Time Source Procedure Growth Status 09/16/25 10:47 Blood Blood Culture - Final NO GROWTH AFTER 5 DAYS OF INCUBATION. Complete 09/16/25 09:00 Voided Urine Urine Culture - Final Complete 09/16/25 04:20 Nose MRSA Screen - Final Complete Labs and/or images reviewed: Labs reviewed by me, Image(s) reviewed by me Problem List/Assessment/Plan Problem List/Assessment/Plan #Peripheral arterial disease with moderate to severe stenosis in iliac and femoral arteries #Left lower extremity ischemia #Left foot soft tissue ulceration #Possible Achilles tendinopathy #s/p Right above the knee amputation on right limb #Ruled out acute mesenteric ischemia #Ruled out abdominal aortic aneurysm or dissection #Possible cystitis #Possible ileus or enteritis #Diverticulitis #Sepsis likely due to above Abdominal Angigraphy: No abdominal aortic aneurysm or dissection. No arterial occlusion in the abdomen or pelvis. No CT findings are seen to suggest acute mesenteric ischemia. Likely moderate stenosis in the right common iliac artery. Areas of moderate to severe stenosis in the visualized portions of the right superficial femoral artery and likely moderate stenoses in the right common femoral and deep femoral arteries as well as in the left common external iliac, common femoral, deep femoral, and superficial femoral arteries. Correlate with clinical findings. If there is clinical concern for lower extremity ischemia, CTA runoff could be considered. Moderate circumferential thickening of the bladder wall is nonspecific. Correlate clinically to exclude cystitis. Nonspecific nondilated fluid-filled small bowel loops. Findings may be seen with ileus or enteritis in the appropriate clinical setting. No small bowel obstruction. Scattered colonic diverticula without adjacent inflammatory changes to suggest diverticulitis. Echocardiogram: Difficult acoustic sinus rhythm. Limited views obtained. Valves appear to be structurally normal. Left ventricular function is preserved at 55% with normal RV function. Doppler is unremarkable. No pericardial effusion masses or vegetations. Extremity venous study: No evidence of femoropopliteal deep vein thrombosis Lower Extremity CT: Dense arterial calcification. No acute osseous abnormality. Soft tissue thickening along the course of the achilles tendon, may be due to tendinopathy. Extremity Arterial Study: Findings consistent with hemodynamically significant stenosis /occlusion involving the left dorsalis pedis artery. Foot X-Ray: There is no evidence of acute fracture or dislocation. Possible soft-tissue ulceration of the posterior aspect of the foot. No radiographic findings of osteomyelitis. Vascular atherosclerotic calcifications are present. Single Organ Ultrasound: Unremarkable sonographic study of the right upper quadrant of the abdomen. Chest X-Ray: No acute cardiopulmonary disease. Wound consult Vascular consult MRSA screen: No MRSA detected Urine culture: No growth after 48 hours of incubation Blood culture: No growth after 48 hours of incubation pain management with Morphine and Tylenol Cefepime 1 GM IV q12h Zyvox 600 mg Sputum culture Protonix 40 mg IV NS 1,000 MLS/HR ONE IV NS 60 MLS/HR Clindamycin 600 MG IV q8h Hydralazine injection 10 MG IV once #Questional Tuberculosis QuantiFERON-TB Gold test Acid-fast bacillus (AFB) testing ID consult #Partial complex seizure #TIA/stroke with aphasia #Metabolic encephalopathy Patient was found altered, unable to answer any questions, possibly seizing on 09/15/25. Brain MRI ordered EEG: This is a normal EEG. No focal, lateralized, or epileptiform features are noted. Neurology consult Aspirin 81 MG PO daily Atorvastatin 40 MG PO hs Folic acid supplementation #History of CVA Lovenox 40 mg #Bipolar disorder #Schizophrenia Quetiapine 100 MG PO hs Olanzapine 2.5 MG PO tid Fluoxetine 40 MG PO daily Gabapentin 400 MG PO daily #Insomnia Temazepam 30 MG PO hsprn #Type 2 diabetes mellitus with hyperglycemia, uncontrolled Accu-check Dextrose 50 % Mild sliding scale Insulin lantus 20 Units SC hs #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 Monitor renal function Avoid nephrotoxic drugs #Questionable liver cirrhosis Diet: Soft diet PUD prophylaxis: protonix 40mg DVT prophylaxis: Lovenox 40mg Goals of care: Full code Plan discussed with patient Plan discussed with Dr. Mckee Plan discussed with: Patient, Other (RN) My Orders My Orders Orders - UNIQUE TRAORE RESIDENT Procedure Category Date Status Time Complete Blood Count LAB 09/21/25 Logged 09:25 Basic Metabolic Panel LAB 09/21/25 Logged 09:25 Dietary Evaluation Review Comments: Advance diet to 2GNA CCHO-60 diet Monitorr PO intakes Expected Outcomes/Goals: controlled DM, prevent uremic syndrome Visit Coding STANDARD RES Billing Provider: ERIK ALVARADO MD Date of Service if different f: Sep 21, 2025 Common Visit Codes: [id number] INP/OBS CARE(HIGH) EUGENIEFEDERICAYEFRI RESIDENT Sep 21, 2025 14:00
[2025-09-21 14:49] LABS: Hematocrit 30.8 % (41.0-53.0); Hemoglobin 10.1 g/dL (13.5-17.5); Mean Corpuscular Hemoglobin 29.1 pg (28.0-32.0); Mean Corpuscular Volume 88.5 fL (80.0-100.0); Nucleated Red Blood Cells % 0.1 %
[2025-09-21 15:13] LABS: Potassium 4.6 mmol/L (3.5-5.1); Sodium 144 mmol/L (136-145)
[2025-09-21 15:14] LABS: Anion Gap 10 (5-15); Carbon Dioxide 24 mmol/L (20-31)
[2025-09-21 15:19] LABS: BUN/Creatinine Ratio 14.1 (10.0-20.0); Blood Urea Nitrogen 19 mg/dL (9-23)
[2025-09-21 15:27] LABS: Calcium 8.4 mg/dL (8.7-10.4); Chloride 110 mmol/L (98-107); Glucose 121 mg/dL (74-106)
--- NOTE | 2025-09-21 17:44 | DVHPN2 ---
Subjective Patient is currently in isolation for ruling out tuberculosis. Changes from previous H/P or p: No Changes Objective Vitals Vital Signs Date Time Temp Pulse Resp B/P (MAP) Pulse Ox O2 Delivery O2 Flow Rate FiO2 09/21/25 16:51 98.0 91 16 115/73 (87) 95 98.0 09/21/25 08:00 Room Air* 0 21 Intake/Output Intake and Output 09/21/25 07:00 Intake Total 1380 ml Output Total 2900 ml Balance -1520 ml Intake Oral 1230 ml IV Total 150 ml Output Urine Total 2900 ml Exam HEENT pupils are reactive Neck is supple CV is S1-S2 regular rate and rhythm Respiratory diminished breath sounds bilateral lung bases GI positive bowel sounds Extremities left lower extremity no edema, right lower extremity above-knee amputation [employer] following commands Medications Current Medications Medications Dose Ordered Sig/Niesha Route Start Time Stop Time Status Last Admin Dose Admin Acetaminophen 325 mg Q4HP PRN PO 09/09/25 18:45 09/13/25 19:31 325 MG Ondansetron HCl 4 mg Q4HP PRN IV 09/09/25 18:45 Diagnostic Test (Pha) 1 strip Q6HR 09/10/25 00:00 09/21/25 12:00 1 STRIP Insulin Human Regular Q6HR SC 09/10/25 00:00 09/21/25 13:01 6 UNITS Dextrose 50 ml UD PRN IV 09/09/25 18:45 Quetiapine Fumarate 100 mg HS PO 09/10/25 22:00 09/20/25 22:18 100 MG Aspirin 81 mg DAILY PO 09/10/25 10:00 09/21/25 09:09 81 MG Insulin Glargine 20 units HS SC 09/15/25 22:00 09/20/25 22:19 20 UNITS Atorvastatin Calcium 40 mg HS PO 09/15/25 22:00 09/20/25 22:18 40 MG Sodium Chloride 1,000 ml @ 100 mls/hr Q10H IV 09/15/25 23:30 09/20/25 16:34 100 MLS/HR Lorazepam 1 mg Q5MINP PRN IV 09/16/25 00:00 09/16/25 01:35 1 MG Magnesium Sulfate/ Dextrose 100 ml @ 100 mls/hr Q1HR IV 09/16/25 10:00 09/16/25 11:59 UNV Pantoprazole Sodium 40 mg DAILY IV 09/16/25 10:00 09/21/25 09:09 40 MG Lorazepam 1 mg ONCE PRN IV 09/16/25 10:15 09/17/25 10:09 1 MG Docusate Sodium 100 mg BID PO 09/16/25 22:00 09/21/25 09:09 100 MG Folic Acid 1 mg DAILY PO 09/17/25 10:00 09/21/25 09:09 1 MG Olanzapine 2.5 mg HS PO 09/17/25 22:00 09/20/25 22:24 2.5 MG Fluoxetine HCl 40 mg DAILY PO 09/18/25 10:00 09/21/25 09:08 40 MG Gabapentin 400 mg TID PO 09/17/25 22:00 09/21/25 16:01 400 MG Temazepam 30 mg HSPRN PRN PO 09/17/25 17:15 09/20/25 22:25 30 MG Ceftriaxone Sodium 50 ml @ 100 mls/hr DAILY@09 IV 09/21/25 09:00 09/21/25 09:07 100 MLS/HR Laboratory Results Laboratory Tests 09/21/25 14:30 Chemistry Test 09/21/25 14:30 Calcium Level 8.4 mg/dL (8.7-10.4) L Urinalysis Test 09/10/25 08:00 Urine Color Colorless (Yellow) Urine Clarity Clear (Clear) Urine pH 5.5 (5.0-9.0) Urine Specific [place] 1.010 (1.001-1.035) Urine Protein 1+ (Negative) H Urine Ketones Negative (Negative) Urine Blood Negative /uL (Negative) Urine Nitrite Negative (Negative) Urine Bilirubin Negative (Negative) Urine Urobilinogen Normal mg/dL (Negative) Urine Leukocyte Esterase Negative /uL (Negative) Urine RBC <1 /hpf (0 - 3) Urine Microscopic WBC < 1 /HPF (0-3) Urine Squamous Epithelial Cells Few /hpf (<5) Urine Bacteria None seen /hpf (None Seen) Urine Glucose 4+ mg/dL (Normal) H Microbiology Microbiology Date/Time Source Procedure Growth Status 09/16/25 10:47 Blood Blood Culture - Final NO GROWTH AFTER 5 DAYS OF INCUBATION. Complete 09/16/25 09:00 Voided Urine Urine Culture - Final Complete 09/16/25 04:20 Nose MRSA Screen - Final Complete Assessment/Plan Assessment/Plan 59-year-old male with a known history of diabetes mellitus type 2, hypertension, dyslipidemia, peripheral vascular disease, bipolar disorder, schizophrenia, anxiety disorder who initially presented to the hospital as he was sent by continue the clinic for low blood pressure associated with the nausea and vomiting found to have 1. Intractable nausea and vomiting, ruled out acute mesenteric ischemia 2. Suspected acute ileitis and enteritis 3. Diabetic foot wound left lower extremity 4. Severe peripheral vascular disease status post above-knee amputation of the right limb 5. Partial complex seizure 6. TIA with a aphasia 7. Metabolic encephalopathy 8. Tuberculosis exposure ruled out active TB -reverse isolation, follow up QuantiFERON test, follow up sputum for AFB x3, Infectious Disease consultation. Plan discussed with: Other Date of Service: Sep 21, 2025 Billing Provider: ELSI SOW MD Common Visit Codes: [id number] INP/OBS CARE(HIGH) ELSI SOW MD Sep 21, 2025 17:44
[2025-09-22 00:46] VITALS: BP 147/84; PULSE 86; RESP 16; TEMP 98.2; O2SAT 98
[2025-09-22 09:00] VITALS: BP 99/65; PULSE 86; RESP 18; TEMP 98.7; O2SAT 99
[2025-09-22 13:00] VITALS: BP_SYST 116; BP_SYST 134; BP_DIAS 54; BP_DIAS 62; PULSE 82; PULSE 96; RESP 18; RESP 20; TEMP 98.6; O2SAT 93; O2SAT 98
--- NOTE | 2025-09-22 14:24 | DVHPNRES ---
Progress Note Date Seen: Sep 22, 2025 Resident Creating Document: UNIQUE TRAORE Medical Necessity Reason Pt with a Central, PICC or Fol: Yes The following are medically ne: Roach Catheter Subjective Review of Systems This is a 59-year-old male who has past medical history of Hypertension, dyslipidemia, diabetes, diabetic feet status post [id number]-[id number] amputation of right limb and requires home health services for left ankle, thyroid disease, chronic kidney disease, patient believes he has alcoholic liver cirrhosis but imaging ruled it out, bipolar disorder/schizophrenia, CVA. The patient was sent from his continuity clinic to the [facility] ED for evaluation of hypotension. He reports multiple episodes of non-bloody vomiting with food content and associated nausea that began on Monday. He also complains of a non- healing left ankle wound for 3.5 years, which has been gradually improving with home health care. At 6:37 PM, the patient met criteria for sepsis, and sepsis protocol was initiated. On evaluation in the ED, patient is afebrile, vitals are stable, blood pressure was 117/65 mmHg. Initial labs show normocytic anemia, creatinine 1.75 and serum glucose 271. Foot X-ray shows possible soft-tissue ulceration of the posterior aspect of the foot and vascular atherosclerotic calcifications. The patient was started on IV antibiotics and IV fluids. Patient is admitted for further evaluation and management. On 09/11/25, The patient reports improvement in his symptoms. Patient is afebrile, tachycardic and hypertensive (145/93 mmHg). Labs show normocytic anemia, serum 206. A wound consult was received for the patients left foot wound. On 09/12/25, The patient has no new complaints. Vascular surgery consult is still pending. On 09/14/25, An ultrasound of the left lower extremity shows no evidence of femoropopliteal deep vein thrombosis. Vascular consult is pending for evaluation of peripheral arterial disease of the left lower extremity. Acute kidney injury has resolved. On 09/15/25, Patient reports feeling better than yesterday, but continue to experience tachycardia, which is concerning for ongoing sepsis. Patient without IV access and not taking prescribed psychiatric medications. Patient repeatedly refused IV placement, telemetry monitoring, and all care. Rapid response called due to ALOC and seizure. On 09/17/25, Patient has remained impulsive and disoriented. EEG completed and results negative for seizure and pending Brain MRI. Diet was changed to soft diet, and the patient is receiving oral medications including temazepam, fluoxetine, and olanzapine, which he has been able to take as prescribed. On 09/18/25, Patient was transferred to the telemetry unit and attached to a telemetry box. The patient was awake, alert, and oriented to person and place with even and unlabored breathing and no distress noted. The scheduled brain MRI was canceled because the patient was unable to complete the procedure. Due to an unknown source of infection, IV clindamycin therapy was initiated. On 09/19/25, The patient reports recent contact with an individual who tested positive for tuberculosis. A QuantiFERON-TB Gold test has been ordered to evaluate for latent or active TB infection. Acid-fast bacillus (AFB) testing has also been initiated. The patient has been placed in isolation as a precautionary measure. On 09/21/25, Patient was seen and examined at bedside. Overnight events were reviewed. The patient reports improvement in his symptoms, [facility] Stated with ceftriaxone. Possible discharge tomorrow. On 09/22/25, QuantiFERON-TB Gold test still pending. According to infectious disease, if QuantiFERON Gold is negative and AFB evaluation is not suggestive of active TB, and given lack of TB-related symptoms per transcript, TB exposure risk is likely low, and patient may be cleared for discharge without further TB- specific follow-up. Surgical history: Right lgjeu-rty-dmsu amputation Family history: Mother had heart disease Social history: Lives in [place] with family (next of kin is Kareem, cousin). Ex ethanol abuse (three bottles of Tequila per day for25 years) quit15 years ago. Denies current tobacco, alcohol and other drug abuse Allergies: Denies Home medication: Denies Patient seen and examined at bedside. Patient is alert and oriented to time, place person and responding to all questions. Constitutional: No chills, No sore throat Eyes: No Pain, No Vision change, No Conjunctivae inflammation, No Eyelid inflammation, No Other, No Redness ENT: No Ear pain, No Ear discharge, No Nose pain, No Nose discharge, No Nose congestion, No Mouth pain, No Mouth swelling, No Throat pain, No Throat swelling, No Other Cardiovascular: No Chest Pain, No Palpitations, No Orthopnea, No Paroxysmal No Dyspnea, No Edema, No Lt Headedness, No Other Respiratory: No Cough, No Dry, No Shortness of breath, No SOB with exertion, No Wheezing, No Hemoptysis, No Pleuritic Pain, No Sputum, No Other Gastrointestinal: No Nausea, No Vomiting, No Abdominal Pain, No Diarrhea, No Constipation, No Melena, No Hematochezia, No Other Genitourinary: No Dysuria, No Frequency, No Incontinence, No Hematuria, No Retention, No Other Musculoskeletal: No other, No neck pain, No shoulder pain, No arm pain, No back pain, No hand pain, No leg pain, No foot pain Skin: No Rash, No Lesions, No Jaundice, No Bruising, No Other Objective vital signs Vital Sign Date Time Temp Pulse Resp B/P (MAP) Pulse Ox O2 Delivery O2 Flow Rate FiO2 09/22/25 09:00 98.7 86 18 99/65 (76) 99 98.7 09/22/25 08:00 Room Air* 0 21 Total Intake and Output 09/21/25 09/21/25 09/22/25 15:00 23:00 07:00 Intake Total 50 ml 800 ml 800 ml Output Total 1100 ml 1200 ml Balance 50 ml -300 ml -400 ml medications Current Medications Medications Dose Ordered Sig/Niesha Route Start Time Stop Time Status Last Admin Dose Admin Acetaminophen 325 mg Q4HP PRN PO 09/09/25 18:45 09/13/25 19:31 325 MG Ondansetron HCl 4 mg Q4HP PRN IV 09/09/25 18:45 Diagnostic Test (Pha) 1 strip Q6HR 09/10/25 00:00 09/22/25 12:27 1 STRIP Insulin Human Regular Q6HR SC 09/10/25 00:00 09/22/25 12:30 4 UNITS Dextrose 50 ml UD PRN IV 09/09/25 18:45 Quetiapine Fumarate 100 mg HS PO 09/10/25 22:00 09/21/25 22:00 100 MG Aspirin 81 mg DAILY PO 09/10/25 10:00 09/22/25 08:32 81 MG Insulin Glargine 20 units HS SC 09/15/25 22:00 09/21/25 21:58 20 UNITS Atorvastatin Calcium 40 mg HS PO 09/15/25 22:00 09/21/25 22:00 40 MG Sodium Chloride 1,000 ml @ 100 mls/hr Q10H IV 09/15/25 23:30 09/21/25 22:00 100 MLS/HR Lorazepam 1 mg Q5MINP PRN IV 09/16/25 00:00 09/16/25 01:35 1 MG Magnesium Sulfate/ Dextrose 100 ml @ 100 mls/hr Q1HR IV 09/16/25 10:00 09/16/25 11:59 UNV Pantoprazole Sodium 40 mg DAILY IV 09/16/25 10:00 09/22/25 08:32 40 MG Lorazepam 1 mg ONCE PRN IV 09/16/25 10:15 09/17/25 10:09 1 MG Docusate Sodium 100 mg BID PO 09/16/25 22:00 09/22/25 08:32 100 MG Folic Acid 1 mg DAILY PO 09/17/25 10:00 09/22/25 08:32 1 MG Olanzapine 2.5 mg HS PO 09/17/25 22:00 09/21/25 22:01 2.5 MG Fluoxetine HCl 40 mg DAILY PO 09/18/25 10:00 09/22/25 08:32 40 MG Gabapentin 400 mg TID PO 09/17/25 22:00 09/22/25 05:46 400 MG Temazepam 30 mg HSPRN PRN PO 09/17/25 17:15 09/20/25 22:25 30 MG Ceftriaxone Sodium 50 ml @ 100 mls/hr DAILY@09 IV 09/21/25 09:00 09/22/25 08:32 100 MLS/HR Examination General Appearance: Cooperative. Well developed. Well nourished. NAD Head Exam: Normal inspection Neck Exam: Normal inspection. Non-tender. Normal alignment Pulmonary/Respiratory: Chest non-tender. Clear bilateral breath sounds, no crackles, no wheezing. Cardiovascular/Chest: Regular rate and rhythm. No murmurs. No JVD. Peripheral Pulses: 2+ Radial (R). 2+ Radial (L). absent Pedal pulse on left side (L). Can not evaluate right lower limb pulses due to right oijeg-ziv-utji amputation Abdominal Exam: Normal bowel sounds. Soft. normal abdomen, no visible veins, Nontender. No hepatospenomegaly. No masses Ankle Exam: Negative ankle edema Lower extremities: Negative lower extremity edema Neuro/Mental Status: A&O x4. Coherent. Thoughts/Psych: Normal thought pattern. Appropriate mood and affect. Good judgement and insight MSK/skin exam: Mobilizes 3 limbs has above the knee amputation on right limb with no erythema nor discharge. Skin is dry and warm. Dry ulcer in left ankle, no secretion laboratory and microbiology Laboratory Tests 09/21/25 14:30 Test 09/21/25 14:30 Range/Units Serum Glucose 121 H 74-106 mg/dL Microbiology Date/Time Source Procedure Growth Status 09/16/25 10:47 Blood Blood Culture - Final NO GROWTH AFTER 5 DAYS OF INCUBATION. Complete 09/16/25 09:00 Voided Urine Urine Culture - Final Complete 09/16/25 04:20 Nose MRSA Screen - Final Complete Labs and/or images reviewed: Labs reviewed by me, Image(s) reviewed by me Problem List/Assessment/Plan Problem List/Assessment/Plan #Questional Tuberculosis QuantiFERON-TB Gold test 09/22 still pending Acid-fast bacillus (AFB) testing ID consult: If QuantiFERON Gold is negative and AFB evaluation is not suggestive of active TB, and given lack of TB-related symptoms per transcript, TB exposure risk is likely low, and Patient may be cleared for discharge without further TB- specific follow-up. #Peripheral arterial disease with moderate to severe stenosis in iliac and femoral arteries #Left lower extremity ischemia #Left foot soft tissue ulceration #Possible Achilles tendinopathy #s/p Right above the knee amputation on right limb #Ruled out acute mesenteric ischemia #Ruled out abdominal aortic aneurysm or dissection #Possible cystitis #Possible ileus or enteritis #Diverticulitis #Sepsis likely due to above Abdominal Angigraphy: No abdominal aortic aneurysm or dissection. No arterial occlusion in the abdomen or pelvis. No CT findings are seen to suggest acute mesenteric ischemia. Likely moderate stenosis in the right common iliac artery. Areas of moderate to severe stenosis in the visualized portions of the right superficial femoral artery and likely moderate stenoses in the right common femoral and deep femoral arteries as well as in the left common external iliac, common femoral, deep femoral, and superficial femoral arteries. Correlate with clinical findings. If there is clinical concern for lower extremity ischemia, CTA runoff could be considered. Moderate circumferential thickening of the bladder wall is nonspecific. Correlate clinically to exclude cystitis. Nonspecific nondilated fluid-filled small bowel loops. Findings may be seen with ileus or enteritis in the appropriate clinical setting. No small bowel obstruction. Scattered colonic diverticula without adjacent inflammatory changes to suggest diverticulitis. Echocardiogram: Difficult acoustic sinus rhythm. Limited views obtained. Valves appear to be structurally normal. Left ventricular function is preserved at 55% with normal RV function. Doppler is unremarkable. No pericardial effusion masses or vegetations. Extremity venous study: No evidence of femoropopliteal deep vein thrombosis Lower Extremity CT: Dense arterial calcification. No acute osseous abnormality. Soft tissue thickening along the course of the achilles tendon, may be due to tendinopathy. Extremity Arterial Study: Findings consistent with hemodynamically significant stenosis /occlusion involving the left dorsalis pedis artery. Foot X-Ray: There is no evidence of acute fracture or dislocation. Possible soft-tissue ulceration of the posterior aspect of the foot. No radiographic findings of osteomyelitis. Vascular atherosclerotic calcifications are present. Single Organ Ultrasound: Unremarkable sonographic study of the right upper quadrant of the abdomen. Chest X-Ray: No acute cardiopulmonary disease. Wound consult Vascular consult MRSA screen: No MRSA detected Urine culture: No growth after 48 hours of incubation Blood culture: No growth after 48 hours of incubation pain management with Morphine and Tylenol Cefepime 1 GM IV q12h Zyvox 600 mg Sputum culture Protonix 40 mg IV NS 1,000 MLS/HR ONE IV NS 60 MLS/HR Clindamycin 600 MG IV q8h Hydralazine injection 10 MG IV once #Partial complex seizure #TIA/stroke with aphasia #Metabolic encephalopathy Patient was found altered, unable to answer any questions, possibly seizing on 09/15/25. Brain MRI ordered EEG: This is a normal EEG. No focal, lateralized, or epileptiform features are noted. Neurology consult Aspirin 81 MG PO daily Atorvastatin 40 MG PO hs Folic acid supplementation #History of CVA Lovenox 40 mg #Bipolar disorder #Schizophrenia Quetiapine 100 MG PO hs Olanzapine 2.5 MG PO tid Fluoxetine 40 MG PO daily Gabapentin 400 MG PO daily #Insomnia Temazepam 30 MG PO hsprn #Type 2 diabetes mellitus with hyperglycemia, uncontrolled Accu-check Dextrose 50 % Mild sliding scale Insulin lantus 20 Units SC hs #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 Monitor renal function Avoid nephrotoxic drugs #Questionable liver cirrhosis Diet: Soft diet PUD prophylaxis: protonix 40mg DVT prophylaxis: Lovenox 40mg Goals of care: Full code Plan discussed with patient Plan discussed with Dr. Mckee Plan discussed with: Patient, Other (RN) My Orders My Orders Orders - UNIQUE TRAORE Procedure Category Date Status Time Discontinue Tele ARTUR 09/21/25 In Process 15:17 Transfer Orders XFER 09/21/25 Transmitted 15:21 Basic Metabolic Panel LAB 09/23/25 Verified 04:00 Complete Blood Count LAB 09/23/25 Verified 04:00 Dietary Evaluation Review Comments: Advance diet to 2GNA CCHO-60 diet Monitorr PO intakes Expected Outcomes/Goals: controlled DM, prevent uremic syndrome Visit Coding STANDARD RES Billing Provider: RODNEY MCKEE MD Date of Service if different f: Sep 22, 2025 Common Visit Codes: [id number] INP/OBS CARE(HIGH) UNIQUE TRAORE Sep 22, 2025 14:24
[2025-09-22 16:48] VITALS: BP 129/50; PULSE 95; RESP 20; TEMP 98.7; O2SAT 97
[2025-09-22 20:00] VITALS: RESP 16
[2025-09-22 20:35] VITALS: BP 130/75; PULSE 89; RESP 17; O2SAT 99
--- NOTE | 2025-09-22 23:30 | DVHPN2 ---
Consult Progress Note Objective vital signs Vital Sign Date Time Temp Pulse Resp B/P (MAP) Pulse Ox O2 Delivery O2 Flow Rate FiO2 09/22/25 20:35 89 17 130/75 (93) 99 09/22/25 20:00 Room Air* 0 21 09/22/25 16:48 98.7 98.7 Total Intake and Output 09/21/25 09/21/25 09/22/25 15:00 23:00 07:00 Intake Total 50 ml 800 ml 800 ml Output Total 1100 ml 1200 ml Balance 50 ml -300 ml -400 ml medications Current Medications Medications Dose Ordered Sig/Niesha Route Start Time Stop Time Status Last Admin Dose Admin Acetaminophen 325 mg Q4HP PRN PO 09/09/25 18:45 09/13/25 19:31 325 MG Ondansetron HCl 4 mg Q4HP PRN IV 09/09/25 18:45 Diagnostic Test (Pha) 1 strip Q6HR 09/10/25 00:00 09/22/25 17:00 1 STRIP Insulin Human Regular Q6HR SC 09/10/25 00:00 09/22/25 12:30 4 UNITS Dextrose 50 ml UD PRN IV 09/09/25 18:45 Quetiapine Fumarate 100 mg HS PO 09/10/25 22:00 09/22/25 21:52 100 MG Aspirin 81 mg DAILY PO 09/10/25 10:00 09/22/25 08:32 81 MG Insulin Glargine 20 units HS SC 09/15/25 22:00 09/22/25 21:51 20 UNITS Atorvastatin Calcium 40 mg HS PO 09/15/25 22:00 09/22/25 21:52 40 MG Sodium Chloride 1,000 ml @ 100 mls/hr Q10H IV 09/15/25 23:30 09/22/25 21:38 100 MLS/HR Lorazepam 1 mg Q5MINP PRN IV 09/16/25 00:00 09/16/25 01:35 1 MG Magnesium Sulfate/ Dextrose 100 ml @ 100 mls/hr Q1HR IV 09/16/25 10:00 09/16/25 11:59 UNV Pantoprazole Sodium 40 mg DAILY IV 09/16/25 10:00 09/22/25 08:32 40 MG Lorazepam 1 mg ONCE PRN IV 09/16/25 10:15 09/17/25 10:09 1 MG Docusate Sodium 100 mg BID PO 09/16/25 22:00 09/22/25 21:52 100 MG Folic Acid 1 mg DAILY PO 09/17/25 10:00 09/22/25 08:32 1 MG Olanzapine 2.5 mg HS PO 09/17/25 22:00 09/22/25 21:52 2.5 MG Fluoxetine HCl 40 mg DAILY PO 09/18/25 10:00 09/22/25 08:32 40 MG Gabapentin 400 mg TID PO 09/17/25 22:00 09/22/25 21:52 400 MG Temazepam 30 mg HSPRN PRN PO 09/17/25 17:15 09/20/25 22:25 30 MG Ceftriaxone Sodium 50 ml @ 100 mls/hr DAILY@09 IV 09/21/25 09:00 09/22/25 08:32 100 MLS/HR laboratory and microbiology Laboratory Tests 09/21/25 14:30 Test 09/21/25 14:30 Range/Units Serum Glucose 121 H 74-106 mg/dL Dietary Evaluation Review Comments: Advance diet to 2GNA CCHO-60 diet Monitorr PO intakes Expected Outcomes/Goals: controlled DM, prevent uremic syndrome CHANELL PICKERING MD Sep 22, 2025 23:30
[2025-09-23 00:33] VITALS: BP 140/79; PULSE 84; RESP 16; O2SAT 100
[2025-09-23 04:43] VITALS: BP 107/66; PULSE 80; RESP 16; O2SAT 99
[2025-09-23 05:47] LABS: Hematocrit 29.0 % (41.0-53.0); Hemoglobin 9.6 g/dL (13.5-17.5); Mean Corpuscular Hemoglobin 29.4 pg (28.0-32.0); Mean Corpuscular Volume 88.9 fL (80.0-100.0); Nucleated Red Blood Cells % 0.0 %
[2025-09-23 05:51] LABS: Potassium 4.1 mmol/L (3.5-5.1); Sodium 144 mmol/L (136-145)
[2025-09-23 05:52] LABS: Anion Gap 7 (5-15); Carbon Dioxide 24 mmol/L (20-31)
[2025-09-23 05:57] LABS: BUN/Creatinine Ratio 18.0 (10.0-20.0); Blood Urea Nitrogen 23 mg/dL (9-23)
[2025-09-23 06:00] LABS: Calcium 8.1 mg/dL (8.7-10.4); Chloride 113 mmol/L (98-107); Glucose 128 mg/dL (74-106)
[2025-09-23 08:30] VITALS: BP 134/75; PULSE 96; RESP 16; TEMP 97.9; O2SAT 99
--- NOTE | 2025-09-23 10:24 | DVHPN2 ---
Progress Note - Dictate Date Seen: Sep 23, 2025 Medical Necessity Reason Pt with a Central, PICC or Fol: Yes The following are medically ne: Roach Catheter Subjective Mr. Del Angel is 59 years old gentleman with a history of hypertension, diabetes, chronic kidney failure, stroke, peripheral arterial disease, schizophrenia, bipolar disorder, questionable liver cirrhosis, he came to the [facility] on 09/09/2025 with a chief complaint of low blood pressure. I have seen and examined the patient, I have discussed with his nurse, he is doing fine, alert and fully oriented, no new complaints He wants to go home Treponema pallidum antibody, 09/16/2025: Nonreactive HIV I & II antibody, 09/16/2025: Negative UDS, 09/10/2025: Negative Urinalysis, 09/10/2025: Unremarkable WBC/HB/PLT/MCV, 09/16/2025: 7.9/11.1/408/86.5 BMP 09/16/2025: Unremarkable Lactic acid, 09/16/2025: 6.4, 1.4 Liver function tests, 08/17/2025: Unremarkable Ammonia, 09/09/2025: 14 TG/HDL/LDL/HDL, 09/09/25: 209/137/67/38 Vitamin B12, 09/09/2025: 1353 EEG, 09/16/25: Normal CT head, 09/15/2025: No CT evidence of an acute intracranial abnormality. vital signs Vital Sign Date Time Temp Pulse Resp B/P (MAP) Pulse Ox O2 Delivery O2 Flow Rate FiO2 09/23/25 08:30 97.9 96 16 134/75 (94) 99 97.9 09/23/25 08:00 Room Air* 0 21 Total Intake and Output 09/22/25 09/22/25 09/23/25 15:00 23:00 07:00 Intake Total 1200 ml 200 ml Output Total 1600 ml 3400 ml Balance -400 ml -3200 ml medications Current Medications Medications Dose Ordered Sig/Niesha Route Start Time Stop Time Status Last Admin Dose Admin Acetaminophen 325 mg Q4HP PRN PO 09/09/25 18:45 09/13/25 19:31 325 MG Ondansetron HCl 4 mg Q4HP PRN IV 09/09/25 18:45 Diagnostic Test (Pha) 1 strip Q6HR 09/10/25 00:00 09/23/25 05:55 1 STRIP Insulin Human Regular Q6HR SC 09/10/25 00:00 09/23/25 00:26 4 UNITS Dextrose 50 ml UD PRN IV 09/09/25 18:45 Quetiapine Fumarate 100 mg HS PO 09/10/25 22:00 09/22/25 21:52 100 MG Aspirin 81 mg DAILY PO 09/10/25 10:00 09/23/25 08:01 81 MG Insulin Glargine 20 units HS SC 09/15/25 22:00 09/22/25 21:51 20 UNITS Atorvastatin Calcium 40 mg HS PO 09/15/25 22:00 09/22/25 21:52 40 MG Sodium Chloride 1,000 ml @ 100 mls/hr Q10H IV 09/15/25 23:30 09/22/25 21:38 100 MLS/HR Lorazepam 1 mg Q5MINP PRN IV 09/16/25 00:00 09/16/25 01:35 1 MG Magnesium Sulfate/ Dextrose 100 ml @ 100 mls/hr Q1HR IV 09/16/25 10:00 09/16/25 11:59 UNV Pantoprazole Sodium 40 mg DAILY IV 09/16/25 10:00 09/23/25 07:59 40 MG Lorazepam 1 mg ONCE PRN IV 09/16/25 10:15 09/17/25 10:09 1 MG Docusate Sodium 100 mg BID PO 09/16/25 22:00 09/23/25 08:01 100 MG Folic Acid 1 mg DAILY PO 09/17/25 10:00 09/23/25 08:02 1 MG Olanzapine 2.5 mg HS PO 09/17/25 22:00 09/22/25 21:52 2.5 MG Fluoxetine HCl 40 mg DAILY PO 09/18/25 10:00 09/23/25 08:01 40 MG Gabapentin 400 mg TID PO 09/17/25 22:00 09/23/25 05:55 400 MG Temazepam 30 mg HSPRN PRN PO 09/17/25 17:15 09/20/25 22:25 30 MG Ceftriaxone Sodium 50 ml @ 100 mls/hr DAILY@09 IV 09/21/25 09:00 09/23/25 07:58 100 MLS/HR objective General: the patient is well developed and nourished. No acute distress. MUSCULOSKELETAL EXAM: Status post right AKA MENTAL STATUS: Subjective SPEECH, LANGUAGE, HIGHER CORTICAL FUNCTION: no aphasia or dysathria. CRANIAL NERVES: Pupils are equal, round and reactive. EOMs full and conjugate. No nystagmus. Facial sensation intact in all three divisions bilaterally. Mandibular strength intact. Facial muscles symmetrical and strength intact. Tongue midline. No fasciculations or atrophy. SENSATION: Sensation to touch and pinprick is unremarkable MOTOR: Normal tone in the upper and lower extremity. Normal muscle bulk. No fasciculations. No abnormal movements or posturing. Muscle strength of the major groups in the extremities is 5/5. REFLEXES: Deep tendon reflexes are symmetrical. No pathological reflexes. CEREBELLAR/COORDINATION: Finger to nose is normal bilaterally laboratory and microbiology Laboratory Tests 09/23/25 05:14 Test 09/23/25 05:14 Range/Units Serum Glucose 128 H 74-106 mg/dL Problem List Episodic event at 09/15/25 21:51 Partial complex seizure TIA/stroke with aphasia Metabolic encephalopathy Peripheral arterial disease Tuberculosis exposure Assessment/Plan Monitoring Supportive treatment Telemetry QuantiFERON-TB Gold Aspirin 81 mg daily Lipitor 40 mg daily Folic acid supplementation GI prophylax/Protonix Infectious disease on case More medication per clinical course This medical document was created using an electronic medical record system with [employer] dictation system. Although this document has been carefully reviewed, there may still be some phonetic and typographical errors. These areas are purely typographical due to imperfections of the software programs, and do not reflect any compromise in the patient's medical care. Prognosis poor Dietary Evaluation Review Comments: Advance diet to 2GNA CCHO-60 diet Monitorr PO intakes Expected Outcomes/Goals: controlled DM, prevent uremic syndrome Plan discussed with: Patient, Other PEDRO MIMS MD Sep 23, 2025 10:24
[2025-09-23 13:00] VITALS: BP 150/80; PULSE 94; RESP 18; TEMP 98; O2SAT 97
--- NOTE | 2025-09-23 14:45 | DVHPNRES ---
Progress Note Date Seen: Sep 23, 2025 Resident Creating Document: UNIQUE TRAORE Medical Necessity Reason Pt with a Central, PICC or Fol: Yes The following are medically ne: Roach Catheter Subjective Review of Systems This is a 59-year-old male who has past medical history of Hypertension, dyslipidemia, diabetes, diabetic feet status post [id number] amputation of right limb and requires home health services for left ankle, thyroid disease, chronic kidney disease, patient believes he has alcoholic liver cirrhosis but imaging ruled it out, bipolar disorder/schizophrenia, CVA. The patient was sent from his continuity clinic to the [facility] ED for evaluation of hypotension. He reports multiple episodes of non-bloody vomiting with food content and associated nausea that began on Monday. He also complains of a non- healing left ankle wound for 3.5 years, which has been gradually improving with home health care. At 6:37 PM, the patient met criteria for sepsis, and sepsis protocol was initiated. On evaluation in the ED, patient is afebrile, vitals are stable, blood pressure was 117/65 mmHg. Initial labs show normocytic anemia, creatinine 1.75 and serum glucose 271. Foot X-ray shows possible soft-tissue ulceration of the posterior aspect of the foot and vascular atherosclerotic calcifications. The patient was started on IV antibiotics and IV fluids. Patient is admitted for further evaluation and management. On 09/11/25, The patient reports improvement in his symptoms. Patient is afebrile, tachycardic and hypertensive (145/93 mmHg). Labs show normocytic anemia, serum 206. A wound consult was received for the patients left foot wound. On 09/12/25, The patient has no new complaints. Vascular surgery consult is still pending. On 09/14/25, An ultrasound of the left lower extremity shows no evidence of femoropopliteal deep vein thrombosis. Vascular consult is pending for evaluation of peripheral arterial disease of the left lower extremity. Acute kidney injury has resolved. On 09/15/25, Patient reports feeling better than yesterday, but continue to experience tachycardia, which is concerning for ongoing sepsis. Patient without IV access and not taking prescribed psychiatric medications. Patient repeatedly refused IV placement, telemetry monitoring, and all care. Rapid response called due to ALOC and seizure. On 09/17/25, Patient has remained impulsive and disoriented. EEG completed and results negative for seizure and pending Brain MRI. Diet was changed to soft diet, and the patient is receiving oral medications including temazepam, fluoxetine, and olanzapine, which he has been able to take as prescribed. On 09/18/25, Patient was transferred to the telemetry unit and attached to a telemetry box. The patient was awake, alert, and oriented to person and place with even and unlabored breathing and no distress noted. The scheduled brain MRI was canceled because the patient was unable to complete the procedure. Due to an unknown source of infection, IV clindamycin therapy was initiated. On 09/19/25, The patient reports recent contact with an individual who tested positive for tuberculosis. A QuantiFERON-TB Gold test has been ordered to evaluate for latent or active TB infection. Acid-fast bacillus (AFB) testing has also been initiated. The patient has been placed in isolation as a precautionary measure. On 09/21/25, Patient was seen and examined at bedside. Overnight events were reviewed. The patient reports improvement in his symptoms, downgrade from [facility] to [facility]. Stated with ceftriaxone. Possible discharge tomorrow. On 09/22/25, QuantiFERON-TB Gold test still pending. According to infectious disease, if QuantiFERON Gold is negative and AFB evaluation is not suggestive of active TB, and given lack of TB-related symptoms per transcript, TB exposure risk is likely low, and patient may be cleared for discharge without further TB- specific follow-up. On 09/23/25, Patient is doing fine, alert, and fully oriented, with no new complaints. Advance diet to 2G Na CCHO-60 diet. Surgical history: Right [id number] amputation Family history: Mother had heart disease Social history: Lives in [place] with family (next of kin is Kareem, cousin). Ex ethanol abuse (three bottles of Tequila per day for25 years) quit15 years ago. Denies current tobacco, alcohol and other drug abuse Allergies: Denies Home medication: Denies Patient seen and examined at bedside. Patient is alert and oriented to time, place person and responding to all questions. Constitutional: No chills, No sore throat Eyes: No Pain, No Vision change, No Conjunctivae inflammation, No Eyelid inflammation, No Other, No Redness ENT: No Ear pain, No Ear discharge, No Nose pain, No Nose discharge, No Nose congestion, No Mouth pain, No Mouth swelling, No Throat pain, No Throat swelling, No Other Cardiovascular: No Chest Pain, No Palpitations, No Orthopnea, No Paroxysmal No Dyspnea, No Edema, No Lt Headedness, No Other Respiratory: No Cough, No Dry, No Shortness of breath, No SOB with exertion, No Wheezing, No Hemoptysis, No Pleuritic Pain, No Sputum, No Other Gastrointestinal: No Nausea, No Vomiting, No Abdominal Pain, No Diarrhea, No Constipation, No Melena, No Hematochezia, No Other Genitourinary: No Dysuria, No Frequency, No Incontinence, No Hematuria, No Retention, No Other Musculoskeletal: No other, No neck pain, No shoulder pain, No arm pain, No back pain, No hand pain, No leg pain, No foot pain Skin: No Rash, No Lesions, No Jaundice, No Bruising, No Other Objective vital signs Vital Sign Date Time Temp Pulse Resp B/P (MAP) Pulse Ox O2 Delivery O2 Flow Rate FiO2 09/23/25 08:30 97.9 96 16 134/75 (94) 99 97.9 09/23/25 08:00 Room Air* 0 21 Total Intake and Output 09/22/25 09/22/25 09/23/25 15:00 23:00 07:00 Intake Total 1200 ml 200 ml Output Total 1600 ml 3400 ml Balance -400 ml -3200 ml medications Current Medications Medications Dose Ordered Sig/Niesha Route Start Time Stop Time Status Last Admin Dose Admin Acetaminophen 325 mg Q4HP PRN PO 09/09/25 18:45 09/13/25 19:31 325 MG Ondansetron HCl 4 mg Q4HP PRN IV 09/09/25 18:45 Diagnostic Test (Pha) 1 strip Q6HR 09/10/25 00:00 09/23/25 12:01 1 STRIP Insulin Human Regular Q6HR SC 09/10/25 00:00 09/23/25 12:09 3 UNITS Dextrose 50 ml UD PRN IV 09/09/25 18:45 Quetiapine Fumarate 100 mg HS PO 09/10/25 22:00 09/22/25 21:52 100 MG Aspirin 81 mg DAILY PO 09/10/25 10:00 09/23/25 08:01 81 MG Insulin Glargine 20 units HS SC 09/15/25 22:00 09/22/25 21:51 20 UNITS Atorvastatin Calcium 40 mg HS PO 09/15/25 22:00 09/22/25 21:52 40 MG Sodium Chloride 1,000 ml @ 100 mls/hr Q10H IV 09/15/25 23:30 09/22/25 21:38 100 MLS/HR Lorazepam 1 mg Q5MINP PRN IV 09/16/25 00:00 09/16/25 01:35 1 MG Magnesium Sulfate/ Dextrose 100 ml @ 100 mls/hr Q1HR IV 09/16/25 10:00 09/16/25 11:59 UNV Pantoprazole Sodium 40 mg DAILY IV 09/16/25 10:00 09/23/25 07:59 40 MG Lorazepam 1 mg ONCE PRN IV 09/16/25 10:15 09/17/25 10:09 1 MG Docusate Sodium 100 mg BID PO 09/16/25 22:00 09/23/25 08:01 100 MG Folic Acid 1 mg DAILY PO 09/17/25 10:00 09/23/25 08:02 1 MG Olanzapine 2.5 mg HS PO 09/17/25 22:00 09/22/25 21:52 2.5 MG Fluoxetine HCl 40 mg DAILY PO 09/18/25 10:00 09/23/25 08:01 40 MG Gabapentin 400 mg TID PO 09/17/25 22:00 09/23/25 05:55 400 MG Temazepam 30 mg HSPRN PRN PO 09/17/25 17:15 09/20/25 22:25 30 MG Ceftriaxone Sodium 50 ml @ 100 mls/hr DAILY@09 IV 09/21/25 09:00 09/23/25 07:58 100 MLS/HR Examination General Appearance: Cooperative. Well developed. Well nourished. NAD Head Exam: Normal inspection Neck Exam: Normal inspection. Non-tender. Normal alignment Pulmonary/Respiratory: Chest non-tender. Clear bilateral breath sounds, no crackles, no wheezing. Cardiovascular/Chest: Regular rate and rhythm. No murmurs. No JVD. Peripheral Pulses: 2+ Radial (R). 2+ Radial (L). absent Pedal pulse on left side (L). Can not evaluate right lower limb pulses due to right [id number] amputation Abdominal Exam: Normal bowel sounds. Soft. normal abdomen, no visible veins, Nontender. No hepatospenomegaly. No masses Ankle Exam: Negative ankle edema Lower extremities: Negative lower extremity edema Neuro/Mental Status: A&O x4. Coherent. Thoughts/Psych: Normal thought pattern. Appropriate mood and affect. Good judgement and insight MSK/skin exam: Mobilizes 3 limbs has above the knee amputation on right limb with no erythema nor discharge. Skin is dry and warm. Dry ulcer in left ankle, no secretion laboratory and microbiology Laboratory Tests 09/23/25 05:14 Test 09/23/25 05:14 Range/Units Serum Glucose 128 H 74-106 mg/dL Microbiology Date/Time Source Procedure Growth Status 09/16/25 10:47 Blood Blood Culture - Final NO GROWTH AFTER 5 DAYS OF INCUBATION. Complete 09/16/25 09:00 Voided Urine Urine Culture - Final Complete 09/16/25 04:20 Nose MRSA Screen - Final Complete Labs and/or images reviewed: Labs reviewed by me, Image(s) reviewed by me Problem List/Assessment/Plan Problem List/Assessment/Plan #Questional Tuberculosis QuantiFERON-TB Gold test 09/22 still pending Acid-fast bacillus (AFB) testing ID consult: If QuantiFERON Gold is negative and AFB evaluation is not suggestive of active TB, and given lack of TB-related symptoms per transcript, TB exposure risk is likely low, and Patient may be cleared for discharge without further TB- specific follow-up. #Peripheral arterial disease with moderate to severe stenosis in iliac and femoral arteries #Left lower extremity ischemia #Left foot soft tissue ulceration #Possible Achilles tendinopathy #s/p Right above the knee amputation on right limb #Ruled out acute mesenteric ischemia #Ruled out abdominal aortic aneurysm or dissection #Possible cystitis #Possible ileus or enteritis #Diverticulitis #Sepsis likely due to above Abdominal Angiography: No abdominal aortic aneurysm or dissection. No arterial occlusion in the abdomen or pelvis. No CT findings are seen to suggest acute mesenteric ischemia. Likely moderate stenosis in the right common iliac artery. Areas of moderate to severe stenosis in the visualized portions of the right superficial femoral artery and likely moderate stenoses in the right common femoral and deep femoral arteries as well as in the left common external iliac, common femoral, deep femoral, and superficial femoral arteries. Correlate with clinical findings. If there is clinical concern for lower extremity ischemia, CTA runoff could be considered. Moderate circumferential thickening of the bladder wall is nonspecific. Correlate clinically to exclude cystitis. Nonspecific nondilated fluid-filled small bowel loops. Findings may be seen with ileus or enteritis in the appropriate clinical setting. No small bowel obstruction. Scattered colonic diverticula without adjacent inflammatory changes to suggest diverticulitis. Echocardiogram: Difficult acoustic sinus rhythm. Limited views obtained. Valves appear to be structurally normal. Left ventricular function is preserved at 55% with normal RV function. Doppler is unremarkable. No pericardial effusion masses or vegetations. Extremity venous study: No evidence of femoropopliteal deep vein thrombosis Lower Extremity CT: Dense arterial calcification. No acute osseous abnormality. Soft tissue thickening along the course of the achilles tendon, may be due to tendinopathy. Extremity Arterial Study: Findings consistent with hemodynamically significant stenosis /occlusion involving the left dorsalis pedis artery. Foot X-Ray: There is no evidence of acute fracture or dislocation. Possible soft-tissue ulceration of the posterior aspect of the foot. No radiographic findings of osteomyelitis. Vascular atherosclerotic calcifications are present. Single Organ Ultrasound: Unremarkable sonographic study of the right upper quadrant of the abdomen. Chest X-Ray: No acute cardiopulmonary disease. Wound consult Vascular consult MRSA screen: No MRSA detected Urine culture: No growth after 48 hours of incubation Blood culture: No growth after 48 hours of incubation pain management with Morphine and Tylenol Cefepime 1 GM IV q12h Zyvox 600 mg Sputum culture Protonix 40 mg IV NS 1,000 MLS/HR ONE IV NS 60 MLS/HR Clindamycin 600 MG IV q8h Hydralazine injection 10 MG IV once #Partial complex seizure #TIA/stroke with aphasia #Metabolic encephalopathy Patient was found altered, unable to answer any questions, possibly seizing on 09/15/25. Brain MRI ordered EEG: This is a normal EEG. No focal, lateralized, or epileptiform features are noted. Neurology consult Aspirin 81 MG PO daily Atorvastatin 40 MG PO hs Folic acid supplementation #History of CVA Lovenox 40 mg #Bipolar disorder #Schizophrenia Quetiapine 100 MG PO hs Olanzapine 2.5 MG PO tid Fluoxetine 40 MG PO daily Gabapentin 400 MG PO daily #Insomnia Temazepam 30 MG PO hsprn #Type 2 diabetes mellitus with hyperglycemia, uncontrolled Accu-check Dextrose 50 % Mild sliding scale Insulin lantus 20 Units SC hs #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 Monitor renal function Avoid nephrotoxic drugs #Questionable liver cirrhosis Diet: Soft diet PUD prophylaxis: protonix 40mg DVT prophylaxis: Lovenox 40mg Goals of care: Full code Plan discussed with patient Plan discussed with Dr. Mckee Plan discussed with: Patient, Other (RN) Dietary Evaluation Review Comments: Advance diet to 2GNA CCHO-60 diet Monitorr PO intakes Expected Outcomes/Goals: controlled DM, prevent uremic syndrome Visit Coding STANDARD RES Billing Provider: RODNEY MCKEE MD Date of Service if different f: Sep 23, 2025 Common Visit Codes: 22025-[id number] INP/OBS CARE(HIGH) UNIQUE TRAORE RESIDENT Sep 23, 2025 14:45 ADAMA INIGUEZ RESIDENT Sep 23, 2025 22:09
[2025-09-23 17:00] VITALS: BP 145/76; PULSE 80; RESP 16; TEMP 98.2; O2SAT 99
[2025-09-23 21:00] VITALS: BP 110/62; PULSE 94; RESP 17; TEMP 97.8; O2SAT 99
[2025-09-24 01:00] VITALS: BP 122/72; PULSE 83; RESP 18; TEMP 97.8; O2SAT 96
[2025-09-24 05:00] VITALS: BP 95/64; PULSE 80; RESP 18; TEMP 97.7; O2SAT 99
[2025-09-24 05:30] LABS: Hematocrit 29.8 % (41.0-53.0); Hemoglobin 9.8 g/dL (13.5-17.5); Mean Corpuscular Hemoglobin 29.3 pg (28.0-32.0); Mean Corpuscular Volume 89.0 fL (80.0-100.0); Nucleated Red Blood Cells % 0.1 %
[2025-09-24 05:41] LABS: Anion Gap 10 (5-15); Carbon Dioxide 24 mmol/L (20-31)
[2025-09-24 05:44] LABS: Calcium 8.0 mg/dL (8.7-10.4); Chloride 110 mmol/L (98-107); Potassium 4.1 mmol/L (3.5-5.1); Sodium 144 mmol/L (136-145)
[2025-09-24 05:46] LABS: BUN/Creatinine Ratio 19.8 (10.0-20.0); Blood Urea Nitrogen 21 mg/dL (9-23); Glucose 99 mg/dL (74-106)
[2025-09-24 08:00] VITALS: PULSE 86; RESP 18; O2SAT 99
[2025-09-24] MEDS ORDERED: CEFD300C2 PO ×2 (08:14→15:01)
[2025-09-24 09:00] VITALS: BP 114/71; PULSE 86; RESP 18; TEMP 97.8; O2SAT 99
[2025-09-24] MEDS: ENOXAPARIN SOD 30 MG/0.3 ML SYRINGE SC SCH (11:16)
[2025-09-24 13:00] VITALS: BP 141/85; PULSE 85; RESP 18; TEMP 98.2; O2SAT 100
--- NOTE | 2025-09-24 13:02 | DVHDSRES ---
Discharge Summary Date of Admission Resident Creating Document: UNIQUE TRAORE RESIDENT Sep 09, 2025 at 18:35 Date of Discharge: Sep 24, 2025 Admitting Diagnosis hypotension after vomiting Labs/Diagnostic Data: Laboratory Results Test 09/24/25 12:48 09/24/25 04:57 09/19/25 13:49 09/19/25 05:02 POC Glucose 223 mg/dl (70-106) White Blood Count 4.7 10^3/uL (4.4-10.8) Red Blood Count 3.35 10^6/uL (4.5-5.90) Hemoglobin 9.8 g/dL (13.5-17.5) Hematocrit 29.8 % (41.0-53.0) Mean Corpuscular Volume 89.0 fL (80.0-100.0) Mean Corpuscular Hemoglobin 29.3 pg (28.0-32.0) Mean Corpuscular Hemoglobin Concent 32.9 g/dL (32.0-36.0) Red Cell Distribution Width 14.3 % (11.8-14.3) Platelet Count 440 10^3/uL (140-450) Mean Platelet Volume 6.8 fL (6.9-10.8) Neutrophils (%) (Auto) 50.9 % (37.0-80.0) Lymphocytes (%) (Auto) 33.4 % (10.0-50.0) Monocytes (%) (Auto) 7.6 % (0.0-12.0) Eosinophils (%) (Auto) 6.9 % (0.0-7.0) Basophils (%) (Auto) 1.2 % (0.0-2.0) Neutrophils # (Auto) 2.4 10 ^3/uL (1.6-8.6) Lymphocytes # (Auto) 1.6 10 ^3/uL (0.4-5.4) Monocytes # (Auto) 0.4 10 ^3/uL (0-1.3) Eosinophils # (Auto) 0.3 10 ^3/uL (0-0.8) Basophils # (Auto) 0.1 10 ^3/uL (0-0.2) Nucleated Red Blood Cells 0.1 % Sodium Level 144 mmol/L (136-145) Potassium Level 4.1 mmol/L (3.5-5.1) Chloride Level 110 mmol/L (98-107) Carbon Dioxide Level 24 mmol/L (20-31) Anion Gap 10 (5-15) Blood Urea Nitrogen 21 mg/dL (9-23) Creatinine 1.06 mg/dL (0.700-1.30) Glomerular Filtration Rate Calc 80 mL/min (>90) BUN/Creatinine Ratio 19.8 (10.0-20.0) Serum Glucose 99 mg/dL (74-106) Calcium Level 8.0 mg/dL (8.7-10.4) TB Test (QFT) Gold Plus Negative (Negative) TB Test (QFT) Nil 0.43 IU/mL (.) TB Test (QFT) Mitogen >10.00 IU/mL (.) TB Test (QFT) Antigen 1 0.15 IU/mL (.) TB Test (QFT) Antigen 2 0.20 IU/mL (.) TB Test (QFT) Criteria Comment (.) Total Bilirubin 0.3 mg/dL (0.2-1.0) Aspartate Amino Transferase (AST) 12 U/L (13-40) Alanine Aminotransferase (ALT) 10 U/L (7-40) Alkaline Phosphatase 77 U/L (46-116) Total Protein 5.7 g/dL (5.7-8.2) Albumin 3.3 g/dL (3.2-4.8) Test 09/17/25 05:08 09/16/25 09:45 09/16/25 09:15 09/16/25 05:27 Phosphorus Level 3.0 mg/dL (2.4-5.1) Magnesium Level 1.9 mg/dL (1.6-2.6) Ammonia 14 umol/L (11-32) Vitamin B12 Level 1194 pg/mL (211-911) Treponema pallidum Antibody Non-reactive (Negative) HIV (1&2) Antibody Negative (Negative) Influenza Type A Antigen Negative (Negative) Influenza Type B Antigen Negative (Negative) SARS-CoV-2 Antigen (Rapid) Negative (NEGATIVE) Lactic Acid Level 1.4 mmol/L (0.4-2.0) Direct Bilirubin < 0.1 mg/dL (<0.3) Test 09/15/25 23:44 09/15/25 22:06 09/10/25 08:00 09/09/25 18:56 Blood Gas Specimen Type Arterial Blood Gas Sample Site Right radial Blood Gas Patient Temperature 37.0 Arterial Blood Date Drawn [id number] Arterial Blood pH 7.428 (7.350-7.450) Arterial Blood Partial Pressure CO2 32.7 mmHg (35.0-48.0) Arterial Blood Partial Pressure O2 74.8 mmHg (83.0-108.0) Arterial Blood HCO3 21.1 mmol/L (21.0-28.0) Arterial Blood Oxygen Saturation 94.8 % (94.0-98.0) Arterial Blood Base Excess -2.5 mmol/L (-2.0-3.0) Arterial Blood Oxyhemoglobin 93.8 % (94.0-98.0) Arterial Blood Carboxyhemoglobin 0.8 % (0.5-1.5) Arterial Blood Methemoglobin 0.3 % (0.0-1.5) Arterial Blood Deoxyhemoglobin 5.1 % (0.0-5.0) Carmelo Test Yes Blood Gas Total Hemoglobin 12.40 g/dL (13.5-17.5) Blood Gas Modality Room air FiO2 % 21.0 Creatine Kinase 71 U/L (46-171) Troponin I High Sensitivity 3 ng/L (</=54) Lipase 31 U/L (12-53) Urine Color Colorless (Yellow) Urine Clarity Clear (Clear) Urine pH 5.5 (5.0-9.0) Urine Specific [place] 1.010 (1.001-1.035) Urine Protein 1+ (Negative) Urine Ketones Negative (Negative) Urine Blood Negative /uL (Negative) Urine Nitrite Negative (Negative) Urine Bilirubin Negative (Negative) Urine Urobilinogen Normal mg/dL (Negative) Urine Leukocyte Esterase Negative /uL (Negative) Urine RBC <1 /hpf (0 - 3) Urine Microscopic WBC < 1 /HPF (0-3) Urine Squamous Epithelial Cells Few /hpf (<5) Urine Bacteria None seen /hpf (None Seen) Urine Glucose 4+ mg/dL (Normal) Urine Opiates Screen Neg (NEGATIVE) Urine Fentanyl Screen Neg (NEGATIVE) Urine Barbiturates Screen Neg (NEGATIVE) Urine Phencyclidine Screen Neg (NEGATIVE) Urine Amphetamines Screen Neg (NEGATIVE) Urine Benzodiazepines Screen Neg (NEGATIVE) Urine Cocaine Screen Neg (NEGATIVE) Urine Cannabinoids Screen Neg (NEGATIVE) Vitamin D 25-Hydroxy 33.9 ng/mL (30.0-100) Test 09/09/25 18:23 Prothrombin Time 11.1 sec (9.3-11.8) Prothrombin Time INR 1.05 (0.9-1.15) Activated Partial Thromboplast Time 28.0 SEC (24.5-34.5) B-Type Natriuretic Peptide 101.03 pg/mL (0-100) Triglycerides Level 209 mg/dL (< 150) Cholesterol Level 137 mg/dL (< 200) LDL Cholesterol 67 mg/dL (< 100) HDL Cholesterol 38 mg/dL (40-59) Thyroid Stimulating Hormone (TSH) 2.22 uIU/mL (0.55-4.78) Other Laboratory Tests 09/24/25 04:57 Brief Hx & Hospital Course: The patient is a 59-year-old male with a past medical history of hypertension, dyslipidemia, diabetes mellitus complicated by diabetic foot ulcers, status post right [id number] amputation, chronic kidney disease, thyroid disease, bipolar disorder, schizophrenia, and prior cerebrovascular accident. He also reports a history of heavy alcohol use for 25 years, which he quit 15 years ago, and suspected alcoholic liver disease that was ruled out by imaging. He lives in [place] with family and receives home health care for a chronic left ankle wound. He denies allergies and current tobacco, alcohol, or drug use. The patient was sent from his continuity clinic to [facility] Emergency Department on September 10, 2025, for evaluation of hypotension after multiple episodes of non-bloody vomiting and nausea that began on Monday. He also complained of a chronic non-healing left ankle wound present for 3.5 years. At 6:37 PM, the patient met sepsis criteria, and the sepsis protocol was initiated. Hospital course On September 11, the patient reported improvement in symptoms and was afebrile, tachycardic, and hypertensive. Laboratory studies showed normocytic anemia, and a wound consult was obtained. On September 12, the patient had no new complaints, and vascular surgery consult was pending. On September 14, ultrasound of the left lower extremity showed no evidence of femoropopliteal deep vein thrombosis, and vascular consult remained pending for peripheral arterial disease evaluation. Acute kidney injury resolved. On September 15, the patient reported feeling better but continued to experience tachycardia concerning for ongoing sepsis. He refused IV access, telemetry monitoring, and psychiatric medications. A rapid response was called due to altered mental status and seizure-like activity. On September 17, the patient remained impulsive and disoriented. EEG was completed and was negative for seizure, and brain MRI was scheduled. The patient was started on oral psychiatric medications including temazepam, fluoxetine, and olanzapine. On September 18, the patient was transferred to telemetry and IV clindamycin was initiated for suspected infection of unknown source. The scheduled brain MRI was canceled because the patient was unable to complete the procedure. On September 19, the patient reported recent contact with an individual who tested positive for tuberculosis. A QuantiFERON-TB Gold test and acid-fast bacillus testing were ordered, and the patient was placed in isolation. On September 21, the patient reported improvement in symptoms and was downgraded from telemetry to the medical-surgical unit. Ceftriaxone was started, and discharge was anticipated. On September 22, TB workup was pending, and infectious disease recommended discharge if tests were negative. On September 23, the patient was alert, fully oriented, and tolerating diet. The QuantiFERON-TB Gold test was negative, and the patient was cleared for discharge. On evaluation today, he states he is well, pain is manageable. His vitals have remained stable for discharge home with home health services, follow up visit in discharge clinic. All medications and recommendations were thoroughly explained and the patient states he understands and agrees. Detailed discussion held with patient at bedside were all questions were answered and concerns were addressed. Examination General Appearance: Cooperative. Well developed. Well nourished. NAD Head Exam: Normal inspection Neck Exam: Normal inspection. Non-tender. Normal alignment Pulmonary/Respiratory: Chest non-tender. Clear bilateral breath sounds, no crackles, no wheezing. Cardiovascular/Chest: Regular rate and rhythm. No murmurs. No JVD. Peripheral Pulses: 2+ Radial (R). 2+ Radial (L). absent Pedal pulse on left side (L). Can not evaluate right lower limb pulses due to right [id number] amputation Abdominal Exam: Normal bowel sounds. Soft. normal abdomen, no visible veins, Nontender. No hepatospenomegaly. No masses Ankle Exam: Negative ankle edema Lower extremities: Negative lower extremity edema Neuro/Mental Status: A&O x4. Coherent. Thoughts/Psych: Normal thought pattern. Appropriate mood and affect. Good judgement and insight MSK/skin exam: Mobilizes 3 limbs has above the knee amputation on right limb with no erythema nor discharge. Skin is dry and warm. Dry ulcer in left ankle, no secretion Operations or Procedures PATIENT: LISA BENITES ACCT: [id number] UNIT: [id number] : 1965 LOC: [facility]OM / BED: [address] [place] [address] AGE / SEX: 59 / M ADM STATUS: ADM IN SERVICE 1049 ORDERING PHYSICIAN: ADAMA INIGUEZ RESIDENT PROCEDURE(s): CXR1 - CHEST XRAY 1 VIEW REASON: Aspiration pneumonia ORDER NUMBER(s): [id number], ACCESSION NUMBER(s): [id number] CHEST RADIOGRAPH Indication: Aspiration pneumonia Technique: Single frontal view of the chest was obtained Comparison: XY CHEST PORTABLE on DOS: 09/09/25, XY CHEST XRAY 1 VIEW on DOS: 08/06/25, US CHEST ULTRASOUND on DOS: 04/15/25, XY CHEST XRAY 1 VIEW on DOS: 04/10/25, XY CHEST XRAY 1 VIEW on DOS: 04/08/25 FINDINGS: Lines and Tubes: None Lungs: No focal consolidation. Pleura: No effusion. No pneumothorax. Cardiomediastinal contours: Unremarkable Bones: No acute osseous abnormality. IMPRESSION: No acute cardiopulmonary disease. PATIENT: LISA BENITES ACCT: [id number] UNIT: [id number] : 1965 LOC: [facility] / BED: [id number] / 6 AGE / SEX: 59 / M ADM STATUS: ADM IN SERVICE 0900 ORDERING PHYSICIAN: ADAMA INIGUEZ RESIDENT PROCEDURE(s): ANGAC - ANGIO AORTIC ABDOMINAL REASON: Rule out mesenteric ischemia ORDER NUMBER(s): [id number], ACCESSION NUMBER(s): [id number] CLINICAL INFORMATION: Rule out mesenteric ischemia. TECHNIQUE: Axial CTA images of the abdomen and pelvis were obtained after the uneventful administration of 100 mL of Omnipaque 350 IV contrast. Coronal and sagittal reformatted images and MIP images were obtained, reviewed, and stored. One or more of the following dose reduction techniques were used: Automated exposure control. Adjustment of mA and/or kV according to patient size. CTDIvol = 13.93 mGy DLP = 817.8 mGy-cm COMPARISON: Noncontrast enhanced CT of the abdomen and pelvis dated 09/16/2025. FINDINGS: No abdominal aortic aneurysm or dissection. Scattered moderate atherosclerotic calcification. Origins of the celiac artery, SMA, bilateral renal arteries, and MARY are patent. No evidence of arterial occlusion demonstrated. There is moderate narrowing at the right common iliac artery due to calcified plaque. Dense calcification in the visualized portions of the right common femoral artery and superficial and deep femoral arteries with areas of likely moderate to severe stenosis in the proximal right superficial femoral artery. There is also prominent calcified plaque in the left external iliac artery, left common femoral artery, and left superficial and deep femoral arteries with areas of likely moderate stenosis in the visualized portions of these arteries. No active extravasation of arterial contrast. No pneumatosis, portal venous gas, or mesenteric gas identified to suggest mesenteric ischemia. Nonspecific mildly distended fluid-filled small bowel loops with no transition point to suggest small bowel obstruction. Appendix is normal. Scattered colonic diverticula are seen without adjacent inflammatory changes to suggest diverticulitis. Moderate stool in the colon. Liver, spleen, pancreas, adrenal glands, and kidneys appear unremarkable. No calcified gallstones visualized in the gallbladder. No biliary ductal dilatation. No free air or free fluid in the abdomen or pelvis. Roach catheter extends into the bladder. Moderate circumferential thickening of the bladder wall. Small locules of gas within the bladder. Prostate is unremarkable. No abnormality identified in the abdominal wall. Mild atelectasis in the lung bases. No acute or suspicious osseous abnormality identified. IMPRESSION: 1. No abdominal aortic aneurysm or dissection. 2. No arterial occlusion in the abdomen or pelvis. No CT findings are seen to suggest acute mesenteric ischemia. Correlate with clinical findings. 3. Likely moderate stenosis in the right common iliac artery. Areas of moderate to severe stenosis in the visualized portions of the right superficial femoral artery and likely moderate stenoses in the right common femoral and deep femoral arteries as well as in the left common external iliac, common femoral, deep femoral, and superficial femoral arteries. Correlate with clinical findings. If there is clinical concern for lower extremity ischemia, CTA runoff could be considered. 4. Moderate circumferential thickening of the bladder wall is nonspecific. Correlate clinically to exclude cystitis. 5. Nonspecific nondilated fluid-filled small bowel loops. Findings may be seen with ileus or enteritis in the appropriate clinical setting. No small bowel obstruction. 6. Scattered colonic diverticula without adjacent inflammatory changes to suggest diverticulitis. 7. Additional findings as described above. PATIENT: LISA BENITES ACCT: [id number] UNIT: [id number] : 1965 LOC: [facility] ROOM / BED: [id number] / 6 AGE / SEX: 59 / M ADM STATUS: ADM IN SERVICE 55 ORDERING PHYSICIAN: ADAMA INIGUEZ RESIDENT PROCEDURE(s): HWOCT - HEAD WITHOUT CONTRAST REASON: UNRESPONSIVE ORDER NUMBER(s): [id number], ACCESSION NUMBER(s): [id number] EXAM: CT HEAD WITHOUT CONTRAST INDICATION: UNRESPONSIVE TECHNIQUE: CT images of the head were obtained without administration of IV contrast. CT scans at this facility use dose modulation, iterative reconstruction, and/or weight based dosing when appropriate to reduce radiation dose to as low as reasonably achievable. COMPARISON: MRI BRAIN HEAD WO CONTRAST on DOS: 04/11/25 FINDINGS: PARENCHYMA: No acute hemorrhage. There is no mass effect, midline shift, or herniation. There is preservation of the paulson white differentiation. Mild scattered hypoattenuation along the periventricular, centrum semiovale, and deep white matter tracts, which are nonspecific however statistically most likely represent chronic microvascular ischemic change. VENTRICLES: No hydrocephalus. EXTRA-AXIAL SPACES: No extra-axial fluid collections. OTHER: The bony structures are intact. Mild scattered paranasal sinus mucosal thickening. IMPRESSION: 1. No CT evidence of an acute intracranial abnormality. - PATIENT: LISA BENITES ACCT: [id number] UNIT: [id number] : 1965 LOC: [facility] ROOM / BED: [address] [place] [address] AGE / SEX: 59 / M ADM STATUS: ADM IN SERVICE 41 ORDERING PHYSICIAN: ADAMA INIGUEZ RESIDENT PROCEDURE(s): ABPL - CT AB PEL WO CON-NO ORAL OR IV REASON: Intractable nausea and vomiting ORDER NUMBER(s): [id number], ACCESSION NUMBER(s): [id number] Exam: CT CT AB PEL WO CON-NO ORAL OR IV History: Intractable nausea and vomiting Comparison Study: CT CT AB PEL WO CON-NO ORAL OR IV on DOS: 03/15/25 TECHNIQUE: Multidetector CT of the abdomen and pelvis was performed from lung bases to pubic symphysis. Imaging was performed without IV contrast. Axial, coronal, and sagittal multiplanar reformats were obtained from the axial data set by the technologist. RADIATION DOSE: CTDI vol 14.4 mGy. DLP 1623.7 mGy.cm Findings: Limited evaluation of the solid organs in the absence of IV contrast. Evaluation is also degraded by Motion artifact. Lungs: Unremarkable. Liver: Unremarkable. Spleen: Nonspecific punctate calcifications. Pancreas: Unremarkable. Gallbladder: Unremarkable. Adrenals: Unremarkable Kidneys: Unremarkable. Pelvic Viscera: Unremarkable. Vasculature: Atherosclerotic aortoiliac calcification. Retroperitoneum: Unremarkable. Bowel: No bowel obstruction. The appendix is normal. Abnormal lucency/ possible artifact is seen in the region of the stomach, correlate with procedural history. Musculoskeletal: Unremarkable. Soft tissues: Subcutaneous air is seen within the left ventral abdominal wall, correlate for recent injection history. Impression: 1. No acute abdominopelvic abnormality. 2. Abnormal lucency/ possible artifact is seen in the region of the stomach, correlate with procedural history. 3. Incidental findings as detailed. PATIENT: DELMISLISA ACCT: [id number] UNIT: [id number] : 1965 LOC: [facility] / BED: [id number] / A AGE / SEX: 59 / M ADM STATUS: ADM IN SERVICE 1654 ORDERING PHYSICIAN: DENIA PORTER PROCEDURE(s): LLDVT - LT Lower DVT REASON: LEG PAIN ORDER NUMBER(s): [id number], ACCESSION NUMBER(s): [id number] LEFT LOWER EXTREMITY PAIN AND EDEMA LOWER EXTREMITY VENOUS DUPLEX REASON FOR EXAMINATION: Left lower extremity pain and edema COMPARISON: US LT LOW EXT ART DUPLEX on DOS: 09/10/25, US RT UPPER DVT on DOS: 03/18/25 TECHNIQUE: Using real-time freeze-frame technique with a high-frequency transducer, multiple longitudinal and transverse sections were obtained. Simultaneous color flow and spectral Doppler imaging was performed. The veins from the popliteal fossa to the groin were evaluated. FINDINGS: There is good visualization of the deep venous system with no intraluminal filling defects identified. Normal venous compressibility is seen and there is flow augmentation. Color flow Doppler imaging is unremarkable. IMPRESSION: NO EVIDENCE OF FEMOROPOPLITEAL DEEP VENOUS THROMBOSIS. - PATIENT: LISA BENITES ACCT: [id number] UNIT: [id number] : 1965 LOC: [facility] ROOM / BED: [id number] / A AGE / SEX: 59 / M ADM STATUS: ADM IN SERVICE 1305 ORDERING PHYSICIAN: UNIQUE TRAORE PROCEDURE(s): LLEX - LEFT LOWER EXTREMITY W/O CON REASON: r/o DVT ORDER NUMBER(s): [id number], ACCESSION NUMBER(s): [id number] CLINICAL INFORMATION: Rule out DVT. TECHNIQUE: Axial CT images of the left lower extremity were obtained without IV contrast. Images were obtained from above the level of the left hip through the distal tibial and fibular diaphyss. Coronal and sagittal reformatted images were obtained, reviewed, and stored. All CT scans at this medical facility are performed using dose modulation techniques as appropriate to a performed exam including the following: Automated exposure control was utilized; adjustment of the MA and/or KV according to patient size; and use of iterative reconstruction technique. CTDIvol = 9.73 mGy DLP = 833.06 mGy-cm COMPARISON: None FINDINGS: Can not rule out DVT on CT, particularly noncontrast enhanced CT. There is dense arterial calcification. Soft tissue thickening along the visualized portions of the achilles tendon partially visualized. No evidence of acute fracture or dislocation in the left lower extremity. Mild arthritic changes are seen at the left knee. Small cyst at the left femoral head/ neck junction. IMPRESSION: 1. Can not rule out DVT on CT, particularly noncontrast enhanced CT. If there is clinical concern for DVT, venous duplex ultrasound could be obtained. 2. Dense arterial calcification. 3. No acute osseous abnormality. 4. Soft tissue thickening along the course of the achilles tendon, may be due to tendinopathy. Correlate with clinical findings. If clinically indicated, MRI could be obtained to better characterize. - PATIENT: LISA BENITES ACCT: [id number] UNIT: [id number] : 1965 LOC: [facility] / BED: [address] [place] [address] AGE / SEX: 59 / M ADM STATUS: ADM IN SERVICE 1029 ORDERING PHYSICIAN: MIGUELINA CRONIN RESIDENT PROCEDURE(s): LLEAD - Lt Low Ext Art Duplex REASON: rule out PDA ORDER NUMBER(s): [id number], ACCESSION NUMBER(s): [id number] Indication: rule out PDA Technique: Real- time ultrasound images of the left lower extremity with grayscale, color, and spectral wave Doppler. Comparison: None Findings: Biphasic waveforms left HOT BRAIDER, SFA, popliteal, posterior tibial, anterior tibial arteries. Monophasic waveform left dorsalis pedis artery. No significant color flow seen within the left dorsalis pedis artery. Peak systolic velocities are as follows (in cm/s): Left: Common femoral artery: 100 Profunda femoris: 85 Proximal superficial femoral: 81 Mid superficial femoral artery: 110 Distal superficial femoral artery: 81 Popliteal artery: 74 Posterior tibial artery: 60 Anterior tibial artery: 73 Dorsalis pedis artery: 10 Impression: Findings consistent with hemodynamically significant stenosis /occlusion involving the left dorsalis pedis artery. - PATIENT: LISA BENITES ACCT: [id number] UNIT: [id number] : 1965 LOC: [facility] / BED: [address] [place] [address] AGE / SEX: 59 / M ADM STATUS: ADM IN SERVICE 0716 ORDERING PHYSICIAN: ADAMA INIGUEZ RESIDENT PROCEDURE(s): LFOOT - L FOOT 3 VIEW XRAY REASON: Left non healing wound ORDER NUMBER(s): [id number], ACCESSION NUMBER(s): [id number] CLINICAL INDICATION: Left non healing wound TECHNIQUE: XY L FOOT 3 VIEW XRAY Comparison: None FINDINGS/IMPRESSION: : There is no evidence of acute fracture or dislocation. Possible soft-tissue ulceration of the posterior aspect of the foot. No radiographic findings of osteomyelitis. Vascular atherosclerotic calcifications are present. - PATIENT: LISA BENITES ACCT: [id number] UNIT: [id number] : 1965 LOC: [facility] / BED: [address] [place] [address] / A AGE / SEX: 59 / M ADM STATUS: ADM IN SERVICE 181 ORDERING PHYSICIAN: CHARLIE REILLY RESIDENT PROCEDURE(s): ABDL - ABDOMEN LIMITED REASON: RUQ tenderness ORDER NUMBER(s): [id number], ACCESSION NUMBER(s): [id number] Procedure: US ABDOMEN LIMITED Study Date and Requested Time: 09/09/2025 06:39 PM History: RUQ tenderness Comparison: Same-day CT abdomen and pelvis Technique: Multiple high resolution paulson-scale images obtained of the right upper quadrant of the abdomen with color Doppler for evaluation of blood flow and vascularity as indicated. Findings: Liver normal in size, measuring 15 cm in length, with homogenous echotexture and normal contours. No evidence of focal hepatic lesions, intrahepatic or extrahepatic ductal dilatation. Common bile duct measures 0.6 cm in diameter. Gallbladder unremarkable with no evidence of abnormal wall thickening, gallstones, biliary sludge, or pericholecystic fluid. Negative sonographic Badillo's sign. Pancreas is unremarkable. Right kidney measures 9 cm in length, with normal contours, echotexture, and cortical thickness. No evidence of hydronephrosis, calculi, cystic or solid renal lesions. Partially visualized inferior vena cava unremarkable. Impression: Unremarkable sonographic study of the right upper quadrant of the abdomen. - PATIENT: LISA BENITES ACCT: [id number] UNIT: [id number] : 1965 LOC: [facility] ROOM / BED: / AGE / SEX: 59 / M ADM STATUS: REG ER SERVICE 12 ORDERING PHYSICIAN: CHARLIE REILLY RESIDENT PROCEDURE(s): CXRP - CHEST PORTABLE REASON: sob ORDER NUMBER(s): [id number], ACCESSION NUMBER(s): [id number] CHEST RADIOGRAPH Indication: sob Technique: Single frontal view of the chest was obtained Comparison: XY CHEST XRAY 1 VIEW on DOS: 08/06/25, XY CHEST XRAY 1 VIEW on DOS: 04/10/25, XY CHEST XRAY 1 VIEW on DOS: 04/08/25 FINDINGS: Lines and Tubes: None Lungs: No focal consolidation. Eventration of the right hemidiaphragm. Pleura: No effusion. No pneumothorax. Cardiomediastinal contours: Unremarkable Bones: No acute osseous abnormality. IMPRESSION: No acute cardiopulmonary disease. - [facility] [address] [address] Jen Conrad M.D., Laboratory Campus Administrative Assistant - PATIENT: LISA BENITES ACCT: [id number] LOC: [facility] U: [id number] AGE/SX: 59/M ROOM: 0238T RE09/09/[address]: UNIQUE TRAORE RESIDENT : 1965 BED: A DIS: STATUS: ADM IN TLOC: - SPEC #: [id number] JORDYN: 09/16/25 STATUS: COMP REQ #: [id number] RECD: 09/16/[address] [facility] [address]: ADAMA INIGUEZ SOURCE: BLOOD ENTR: 09/16/[address] [facility] [address]: KAY MENDOSA Jr., MD [facility] RODNEY DIAZ MD, IMRAN M MD [facility] PEDRO SNOWDEN MD ORDERED: BCULT - Procedure Result - Blood Culture Final NO GROWTH AFTER 5 DAYS OF INCUBATION. NO GROWTH AFTER 5 DAYS OF INCUBATION. [facility] [address], [place] [address] Jen Conrad M.D., Laboratory Campus Administrative Assistant - PATIENT: LISA BENITES ACCT: [id number] LOC: [facility] U: [id number] AGE/SX: 59/M ROOM: [facility] RE09/09/[address]: UNIQUE TRAORE RESIDENT : 1965 BED: A DIS: STATUS: ADM IN TLOC: - SPEC #: [id number] JORDYN: 09/16/25 STATUS: COMP REQ #: [id number] RECD: 09/16/25-[address] [facility] [address]: ADAMA INIGUEZ SOURCE: BLOOD ENTR: 09/16/[address] [facility] [address]: KAY MENDOSA Jr., MD [facility] RODNEY DIAZ MD, IMRAN M MD YOU, [facility] RESIDENT PEDRO SNOWDEN MD ORDERED: BCULT - Procedure Result - Blood Culture Final NO GROWTH AFTER 5 DAYS OF INCUBATION. NO GROWTH AFTER 5 DAYS OF INCUBATION. [facility] [address] [address] Jen Conrad M.D., Laboratory Campus Administrative Assistant - PATIENT: LISA BENITES ACCT: [id number] LOC: [facility] U: [id number] AGE/SX: 59/M ROOM: 0223 RE09/09/[address]: ADAMA INIGUEZ : 1965 BED: A DIS: STATUS: ADM IN TLOC: - SPEC #: [id number] JORDYN: 09/16/25 STATUS: COMP REQ #: [id number] RECD: 09/16/[address] [facility] [address]: ADAMA INIGUEZ RESIDENT SOURCE: VOID ENTR: 09/16/[address]: KAY MENDOSA Jr., [facility] RODNEY DIAZ MD,AL[facility] PEDRO SNOWDEN MD ORDERED: UR COMMENTS: 09/16 NO URINE IN LAB-KDU - Procedure Result - Urine Bacterial Culture Final Report No growth after 48 hours of incubation [facility] [address], [place] [address] Jen Conrad M.D., Laboratory Campus Administrative Assistant - PATIENT: LISA BENITES ACCT: [id number] LOC: [facility] U: [id number] AGE/SX: 59/M ROOM: [address] [place] [address] RE09/09/[address]: ADAMA INIGUEZ : 1965 BED: 6 DIS: STATUS: ADM IN TLOC: - SPEC #: [id number] JORDYN: 09/16/25 STATUS: COMP REQ #: [id number] RECD: 09/16/[address]: SUZANNA LUCERO SOURCE: NOSE ENTR: 09/16/25-[address]: KAY MENDOSA Jr., MD [facility]: RODNEY DIAZ MD, IMRAN M MD YOU,[facility] RESIDENT PEDRO SNOWDEN MD ORDERED: MRSAS COMMENTS: Has specimen been collected/obtained? Y - Procedure Result - MRSA Screen Final RESULT NEGATIVE No MRSA detected. Methodology: DNA Amplification This is an automated qualitative in vitro diagnostic test for the direct detection of methicillin-resistant Staphylococcus aureus (MRSA) DNA from nasal swabs that utilizes real-time polymerase chain reaction (PCR) and flourogenic target-specific hybridization probes for the detection of the amplified DNA. [facility] [address] [address] Jen Conrad M.D., Laboratory Campus Administrative Assistant - PATIENT: LISA BENITES ACCT: [id number] LOC: [facility] U: [id number] AGE/SX: 59/M ROOM: 0296 RE09/09/[address]: UNIQUE TRAORE RESIDENT : 1965 BED: A DIS: STATUS: ADM IN TLOC: - SPEC #: [id number] JORDYN: 09/10/25 STATUS: BIBI REQ #: [id number] RECD: 09/10/[address]: ADAMA INIGUEZ RESIDENT SOURCE: NOSE ENTR: 09/10/[address]: ALBIN WILLIAM MD [facility]: ORDERED: MRSAS COMMENTS: Has specimen been collected/obtained? Y - Procedure Result - MRSA Screen Final RESULT NEGATIVE No MRSA detected. Methodology: DNA Amplification This is an automated qualitative in vitro diagnostic test for the direct detection of methicillin-resistant Staphylococcus aureus (MRSA) DNA from nasal swabs that utilizes real-time polymerase chain reaction (PCR) and flourogenic target-specific hybridization probes for the detection of the amplified DNA. [facility] [address] [place], [place] [address] Jen Conrad M.D., Laboratory Campus Administrative Assistant - PATIENT: LISA BENITES ACCT: [id number] LOC: [facility] U: [id number] AGE/SX: 59/M ROOM: [facility] RE09/09/[address]: UNIQUE TRAORE RESIDENT : 1965 BED: A DIS: STATUS: ADM IN TLOC: - SPEC #: [id number] JORDYN: 09/10/25 STATUS: COMP REQ #: [id number] RECD: 09/10/[address]: ADAMA INIGUEZ RESIDENT SOURCE: VOID ENTR: 09/09/[address]: ALBIN WILLIAM MD SPDES[facility]: SAURABH MANCILLA MD ORDERED: URC COMMENTS: - Procedure Result - Urine Bacterial Culture Final Report No growth after 48 hours of incubation [facility] [address] [address] Jen Conrad M.D., Laboratory Campus Administrative Assistant - PATIENT: LISA BENITES ACCT: [id number] LOC: [facility] U: [id number] AGE/SX: 59/M ROOM: [facility] RE09/09/[address]: UNIQUE TRAORE RESIDENT : 1965 BED: A DIS: STATUS: ADM IN TLOC: - SPEC #: [id number] JORDYN: 09/09/25 STATUS: COMP REQ #: [id number] RECD: 09/09/[address]: CHARLIE REILLY RESIDENT SOURCE: BLOOD ENTR: 09/09/[address]: ALBIN WILLIAM MD SPDESC: SAURABH MANCILLA MD ORDERED: BCULT - Procedure Result - Blood Culture Final NO GROWTH AFTER 5 DAYS OF INCUBATION. NO GROWTH AFTER 5 DAYS OF INCUBATION. [facility] [address] [address] Jen Conrad M.D., Laboratory Campus Administrative Assistant - PATIENT: LISA BENITES ACCT: [id number] LOC: [facility] U: [id number] AGE/SX: 59/M ROOM: [facility] RE09/09/[address]: UNIQUE TRAORE RESIDENT : 1965 BED: A DIS: STATUS: ADM IN TLOC: - SPEC #: [id number] JORDYN: 09/09/25 STATUS: COMP REQ #: [id number] RECD: 09/09/[address] [facility] [address]: CHARLIE REILLY SOURCE: BLOOD ENTR: 09/09/[address]: ALBIN WILLIAM MD [facility]: SAURABH MANCILLA MD ORDERED: BCULT - Procedure Result - Blood Culture Final NO GROWTH AFTER 5 DAYS OF INCUBATION. NO GROWTH AFTER 5 DAYS OF INCUBATION. EEG Procedural Note Procedural Note EXAM DATE: 09/16/25 REFERRING DOCTOR: Dr. Snowden TECHNIQUE: Eighteen channels of EEG, 2 channels of EOG, and 1 channel of EKG were recorded using the International 10/20 system. CLINICAL DATA: The patient was referred for an EEG evaluation for the evidence of seizure disorder. MEDICATIONS: See the chart BACKGROUND ACTIVITY: While the patient was awake, the background activity consisted of well regulated 9 Hz rhythmic waveforms, symmetrically distributed over both posterior quadrants and was reactive to eye opening. ACTIVATION: Hyperventilation: Not done Photic Stimulation: Not done Sleep: Noticed IMPRESSION: This is a normal EEG. No focal, lateralized, or epileptiform features are noted. If clinically indicated to rule out a seizure disorder, recommend repeat EEG with sleep deprivation. The EKG channel showed a regular heart rate of 90/min. [place] [address] PEDRO SNOWDEN MD Sep 16, 2025 23:38 TRANSCRIBED BY:PEDRO SNOWDEN MD TRANSCRIBED DATE/TIME:09/16/252337 ELECTRONICALLY SIGNED BY:PEDRO SNOWDEN MD 09/16/252337 PATIENT: LISA BENITES ACCT: [id number] UNIT: [id number] : 1965 LOC: [facility] ROOM / BED: Pending sale to [facility] / A AGE / SEX: 59 / M ADM STATUS: ADM IN SERVICE 34 ORDERING PHYSICIAN: ADAMA INIGUEZ RESIDENT PROCEDURE(s): ECIDC - ECHO 2D MODE CARDIAC DOP REASON: Sepsis ORDER NUMBER(s): [id number], ACCESSION NUMBER(s): [id number] APPROVED REPORT EXAM: Two-dimensional and M-mode echocardiogram with Doppler and color Doppler. Blood Pressure: 107/56 mmHg INDICATION Sepsis RISK FACTORS Height: 5'0, Weight: 138 DIMENSIONS LVDd 4.8 (3.8-5.7cm) LA (2D) 3.2 (1.9-4.0cm) Aortic Root 2.8 (2.0- 3.7cm) LVDs 3.4 (2.5-4.0cm) LA (MM) (1.9-4.0cm) Aortic Cusp Exc 1.7 (1.5- 2.0cm) EF (%) 55.0 (55-70%) Rt. Atrium (1.9-4.0cm) Asc. Aorta 3.1 cm IVSd 0.8 (0.7-1.1cm) RV (D) (1.8-2.4cm) PWd 1.0 (0.7-1.1cm) Mitral Valve Mitral Mitral Stenosis E wave 0.51m/s MV Mean GR. mmHg A wave 0.77m/s MV Peak GR. mmHg E/A ratio 0.7 2D MVA cm2 DECEL Time 181ms PRESS 1/2 Time ms Aortic Valve Aortic Valve Aortic Stenosis V1 0.96m/s AO Mean GR. 2mmHg V2 1.08m/s AO Peak GR. 5mmHg LVOT Diameter 1.9 (1.8-2.4cm) Doppler ROM 2.52cm2 Pulmonic Valve V2 1.04m/s Other Information Technically limited study due to patient position and body habitus. Conclusion Technically difficult study. Difficult acoustic sinus rhythm. Limited views obtained. Valves appear to be structurally normal. Left ventricular function is preserved at 55% with normal RV function. Doppler is unremarkable. No pericardial effusion masses or vegetations. 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 #Ruled out acute mesenteric ischemia #Ruled out abdominal aortic aneurysm or dissection #Possible cystitis #Possible ileus or enteritis #Diverticulitis #Sepsis likely due to above #Partial complex seizure #TIA/stroke with aphasia #Metabolic encephalopathy #History of CVA #Bipolar disorder #Schizophrenia #Insomnia #Type 2 diabetes mellitus with hyperglycemia, uncontrolled #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 #Questionable liver cirrhosis Discharge Disposition: Home with Health Services Discharge Instruct/Medications Diet: Regular Activity: No Restrictions, As Tolerated Follow Up/Referral: Follow up within 1 week Medications: Continue home medications Scheduled Apixaban Base (Eliquis), 1 TAB PO BID, (Reported) Aspirin (Aspirin Low Dose), 1 TAB PO DAILY, (Reported) Atorvastatin Calcium (Atorvastatin Calcium), 1.5 TAB PO DAILY, (Reported) Ertugliflozin l-Pyroglutamic A (Steglatro), 1 TAB PO DAILY IN AM, (Reported) Fluoxetine HCl (Fluoxetine HCl), 2 CAP PO QAM, (Reported) Folic Acid (Folic Acid), 1 TAB PO DAILY, (Reported) Gabapentin (Gabapentin), 1 CAP PO TID, (Reported) Olanzapine (Olanzapine), 1 TAB PO QPM, (Reported) Pantoprazole Sodium Sesquihydr (Pantoprazole Sodium), 40 MG PO DAILY Quetiapine Fumerate (Quetiapine Fumarate), 1 TAB PO HS, (Reported) Temazepam (Temazepam), 1 CAP PO HS, (Reported) Scheduled PRN Baclofen (Baclofen), 1 TAB PO BIDP PRN for FOR MUSCLE SPASM, (Reported) Cefdinir (Cefdinir), 300 MG PO BID PRN Hydrocodone-Acetaminophen (Hydrocodone Bitartrate/AC 10-325 mg), 1 TAB PO Q8HPRN PRN for PAIN SCALE 7 THRU 10, (Reported) Hydroxyzine HCl (Hydroxyzine Hydrochloride), 1 TAB PO TIDP PRN for ANXIETY, (Reported) Discontinued Medications Amlodipine Besylate (Amlodipine Besylate), 1 TAB PO DAILY, (Reported) Insulin Aspart (Novolog Flexpen Relion), 1-10 UNIT SC TIDWM PRN Insulin Glargine (Lantus Solostar), 15 UNIT SC BID Insulin Lispro (Humalog Kwikpen), 5 UNIT SC AC Losartan Potassium (Losartan Potassium), 1 TAB PO DAILY@BREAKFAST, (Reported) Metoprolol Tartrate (Lopressor Tablet), 1 TAB PO BID, (Reported) Discharge Statement: "Patient was advised to return to the ER or call 911 if any headaches, dizziness, shortness of breath, chest pain, abdominal pain, bleeding, fevers, or worsening of medical condition. Patient was counseled about treatment plan, medications, possible side effects, patientverbalized understanding. All questions were answered to the best of my ability. 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 #Ruled out acute mesenteric ischemia #Ruled out abdominal aortic aneurysm or dissection #Possible cystitis #Possible ileus or enteritis #Diverticulitis #Sepsis likely due to above #Partial complex seizure #TIA/stroke with aphasia #Metabolic encephalopathy #History of CVA #Bipolar disorder #Schizophrenia #Insomnia #Type 2 diabetes mellitus with hyperglycemia, uncontrolled #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
[2025-09-24 17:00] VITALS: BP 140/80; PULSE 88; RESP 19; TEMP 98.1; O2SAT 100
--- NOTE | 2025-09-24 18:22 | DVHPN2 ---
Consult Progress Note Date Seen: Sep 24, 2025 Subjective Patient reports: Feels better (no diarrhea or rash) Objective vital signs Vital Sign Date Time Temp Pulse Resp B/P (MAP) Pulse Ox O2 Delivery O2 Flow Rate FiO2 09/24/25 17:00 98.1 88 19 140/80 (100) 100 98.1 09/23/25 20:00 Room Air* 0 21 Total Intake and Output 09/23/25 09/23/25 09/24/25 15:00 23:00 07:00 Intake Total 50 ml 600 ml 600 ml Output Total 3025 ml 2200 ml Balance 50 ml -2425 ml -1600 ml medications Current Medications Medications Dose Ordered Sig/Niesha Route Start Time Stop Time Status Last Admin Dose Admin Acetaminophen 325 mg Q4HP PRN PO 09/09/25 18:45 09/13/25 19:31 325 MG Ondansetron HCl 4 mg Q4HP PRN IV 09/09/25 18:45 Diagnostic Test (Pha) 1 strip Q6HR 09/10/25 00:00 09/24/25 17:39 1 STRIP Insulin Human Regular Q6HR SC 09/10/25 00:00 09/24/25 17:41 3 UNITS Dextrose 50 ml UD PRN IV 09/09/25 18:45 Quetiapine Fumarate 100 mg HS PO 09/10/25 22:00 09/23/25 21:45 100 MG Aspirin 81 mg DAILY PO 09/10/25 10:00 09/24/25 11:15 81 MG Insulin Glargine 20 units HS SC 09/15/25 22:00 09/23/25 23:15 20 UNITS Atorvastatin Calcium 40 mg HS PO 09/15/25 22:00 09/23/25 21:45 40 MG Sodium Chloride 1,000 ml @ 100 mls/hr Q10H IV 09/15/25 23:30 09/24/25 06:11 100 MLS/HR Lorazepam 1 mg Q5MINP PRN IV 09/16/25 00:00 09/16/25 01:35 1 MG Magnesium Sulfate/ Dextrose 100 ml @ 100 mls/hr Q1HR IV 09/16/25 10:00 09/16/25 11:59 UNV Pantoprazole Sodium 40 mg DAILY IV 09/16/25 10:00 09/24/25 11:15 40 MG Lorazepam 1 mg ONCE PRN IV 09/16/25 10:15 09/17/25 10:09 1 MG Docusate Sodium 100 mg BID PO 09/16/25 22:00 09/24/25 11:15 100 MG Folic Acid 1 mg DAILY PO 09/17/25 10:00 09/24/25 11:15 1 MG Olanzapine 2.5 mg HS PO 09/17/25 22:00 09/23/25 21:45 2.5 MG Fluoxetine HCl 40 mg DAILY PO 09/18/25 10:00 09/24/25 11:15 40 MG Gabapentin 400 mg TID PO 09/17/25 22:00 09/24/25 13:23 400 MG Ceftriaxone Sodium 50 ml @ 100 mls/hr DAILY@ IV 09/21/25 09:00 09/24/25 11:14 100 MLS/HR Enoxaparin Sodium 30 mg DAILY SC 09/24/25 10:00 09/24/25 11:16 30 MG laboratory and microbiology Laboratory Tests 09/24/25 04:57 Test 09/24/25 04:57 Range/Units Serum Glucose 99 74-106 mg/dL Problem List/Assessment/Plan Problem List/Assessment/Plan Assessment/Plan Problems(with codes): (1) Nausea and vomiting (2) Severe sepsis (3) Metabolic encephalopathy (4) Non compliance w medication regimen (5) Abdominal pain (6) Uncontrolled diabetes mellitus with hyperglycemia (7) Diabetic foot infection Plan/Recommendation ASSESSMENT AND PLAN: ID Problem List: \-- Sepsis with hypotension, improved \-- Infected chronic nonhealing left ankle ulcer \-- Severe peripheral arterial disease with hemodynamically significant stenosis/occlusion of dorsalis pedis artery \-- Diabetes mellitus with history of severe episodes of DKA and suboptimal glycemic control \-- History of diabetic foot ulcer status post right above-knee amputation \-- Chronic kidney disease \-- Thyroid disease \-- Hypertension \-- Hyperlipidemia \-- History of alcoholic liver cirrhosis (liver ultrasound without sonographic cirrhosis this admission) \-- Bipolar disorder \-- Schizophrenia \-- Recent tuberculosis exposure, undergoing acute TB rule out Assessment This is a 59 y.o. male with past medical history of hypertension, hyperlipidemia, diabetes mellitus (with severe prior episodes of DKA), diabetic foot ulcer status post right above-knee amputation, thyroid disease, chronic kidney disease, alcoholic liver cirrhosis, bipolar disorder, and schizophrenia, who presents with hypotension and multiple episodes of non-bloody nausea and vomiting in the setting of a chronic nonhealing left ankle ulcer. He initially presented hypotensive to [facility] clinic, was sent to the ED, and subsequently developed persistent hypotension with MAPs in the 50s (blood pressures down to 86/46), requiring transfer to the [facility] and initiation of vasopressors. Laboratory evaluation on admission showed WBC 7.9, hemoglobin ~11 g/dL, platelets 408, sodium 143, BUN 13, creatinine 1.19. UA with 4+ glucose but no pyuria; urine drug screen negative. Blood glucose has ranged from 149 up to the 270s. He has a chronic nonhealing left ankle ulcer with serous drainage and associated venous stasis-type rash. Arterial studies demonstrate hemodynamically significant disease of the dorsalis pedis artery, and CT angiography of the abdomen/pelvis demonstrates moderate to severe stenoses of multiple iliac and femoral arterial segments bilaterally, consistent with severe peripheral arterial disease likely contributing to impaired wound healing. Imaging of the left foot shows no radiographic evidence of osteomyelitis. Venous ultrasound shows no DVT. Blood cultures obtained on 09/09 showed no growth to date; urine culture is negative. HIV, syphilis, influenza, and COVID testing are negative. Chest imaging and CT abdomen/pelvis show no alternative infectious source. Given the chronic left ankle ulcer, hemodynamic instability, and improvement with antibiotics, the nonhealing ulcer is the most likely infectious source of his sepsis and hypotension in the context of severe peripheral arterial disease. He has been treated with multiple antibiotic regimens: initially linezolid and cefepime, then transitioned to ceftriaxone and then to clindamycin. He is currently on clindamycin monotherapy but reports significant nausea, and clindamycin carries a higher risk for C. difficile. Infectious Disease was also consulted for evaluation of recent tuberculosis exposure. He reports a recent contact with an individual who tested positive for TB but is unsure about the timing or duration of exposure. He denies weight loss, hemoptysis, chronic cough, or fatigue. He is on room air. QuantiFERON Gold testing has been ordered, and AFB sputum collection has been initiated for an acute TB rule out. TB testing is pending at this time. Given his clinical stability, negative initial cultures, absence of radiographic evidence of osteomyelitis, and significant nausea with clindamycin, ceftriaxone monotherapy is reasonable to complete a finite course for soft tissue infection associated with his left ankle ulcer. Ongoing management of his severe peripheral arterial disease and improved glycemic control will be critical to allow wound healing and prevent recurrent infections. Plan: 1\. Sepsis with hypotension; infected chronic nonhealing left ankle ulcer; severe peripheral arterial disease \-- Source most consistent with infected chronic left ankle ulcer in the setting of severe peripheral arterial disease and diabetes, now clinically improved. \-- Blood cultures (09/09) with no growth to date; urine culture negative. No alternative clear source of infection identified on imaging or urinalysis. \-- Current antibiotic: clindamycin monotherapy; patient with significant nausea and clindamycin has higher risk for C. difficile. Antibiotic plan: \-- continue ceftriaxone 1 g IV q24h. \-- Complete a total 14-day course of therapy for soft tissue infection associated with the left ankle ulcer (inclusive of prior systemic antibiotic days as counted by primary team). \-- When clinically appropriate for discharge, may transition from IV ceftriaxone to an appropriate oral regimen (oral cefidinir 300mg po BID) Local/wound and vascular management: \-- Continue local wound care to the left ankle ulcer while inpatient. \-- Ensure arrangements for ongoing outpatient wound care after discharge to reduce recurrence and promote healing. \-- Given severe peripheral arterial disease with significant arterial stenoses, recommend outpatient vascular evaluation to optimize revascularization strategy, as improved perfusion is essential for wound healing and prevention of recurrent infection. Glycemic control: \-- History of severe episodes of DKA and current blood glucose up to the 270s. \-- Recommend optimization of glycemic control with a target blood glucose <200 mg/dL to promote wound healing. \-- Follow-up with primary care (and/or endocrinology per primary team) after discharge for diabetes management and DKA prevention. Monitoring: \-- Continue to monitor hemodynamics, wound appearance, and systemic signs of infection while inpatient. \-- If clinical status worsens or new localizing signs appear, re-evaluate for osteomyelitis (e.g., advanced imaging, bone biopsy) and/or alternative infectious sources as clinically indicated (not specified in current transcript). 2\. Recent tuberculosis exposure; acute TB rule out \-- History of recent contact with an individual who tested positive for TB at [facility] ( roommate in hospital)--> to be clear, contact is suspected to have TB, but not confirmed \-- Patient denies weight loss, hemoptysis, chronic cough, or fatigue. \-- On room air without respiratory compromise by report. \-- QuantiFERON Gold has been ordered; AFB sputum collection has been initiated for acute TB rule out. --->recommend baseline CXR and quantiferon gold. have patient follow up in ID clinic in 8 weeks to repeat quantiferon gold testing. patient there is seroconversion, patient will need treatment. no need for empiric treatment at this time. Plan: \-- Continue TB evaluation: \-- Follow up QuantiFERON Gold result. \-- Continue AFB sputum collection as per protocol while the patient can produce sputum. \-- Maintain current isolation precautions for suspected TB (specific type of isolation not specified in transcript) while TB rule out is in progress. \-- If QuantiFERON Gold is negative and AFB evaluation is not suggestive of active TB, and given lack of TB-related symptoms per transcript, TB exposure risk is likely low, and: \-- Patient may be cleared for discharge without further TB-specific follow-up. \-- Isolation precautions may be discontinued at that time, per hospital infection control policy. 3\. Diabetes mellitus with history of severe DKA; chronic kidney disease \-- Diabetes with poor control (BG [id number]) and prior severe DKA contributes significantly to impaired wound healing and infection risk. \-- CKD present (baseline creatinine 1.19 noted). Plan: \-- Defer specific inpatient insulin regimen and CKD management to the primary team. \-- Reinforce importance of keeping blood glucose <200 mg/dL to promote wound healing. \-- Recommend outpatient follow-up with primary care for diabetes management; consider endocrine referral per primary team (not specified in transcript). \-- Avoid nephrotoxic agents when possible; adjust antibiotic dosing as needed for CKD (ceftriaxone dosing per pharmacy/primary team). 4\. Chronic conditions (hypertension, hyperlipidemia, thyroid disease, alcoholic liver cirrhosis, bipolar disorder, schizophrenia) \-- These are longstanding comorbidities relevant to overall prognosis and vascular risk. \-- Liver ultrasound during this admission shows no remarkable findings and no sonographic evidence of cirrhosis despite history of alcoholic cirrhosis. \-- Patient has a history of severe alcohol abuse but reportedly quit alcohol 15 years ago; no current alcohol, tobacco, or IV drug use. Plan: \-- Continue home regimens for hypertension, hyperlipidemia, thyroid disease, and psychiatric diagnoses per primary team (specific medications not listed in transcript). \-- Maintain alcohol abstinence; no specific new liver-directed interventions from ID perspective given lack of acute hepatic findings. \-- Psychiatric medication management and follow-up per primary/psychiatry as appropriate (not specified in transcript). Isolation Precautions: \-- Isolation precautions in place for TB rule out (airborne and droplet). no need for isolation upon discahrge Assessment and plan was discussed with the patient as written above Plan is subject to change pending incorporation of new incoming information/diagnostics. Updates may be added as addendum at the bottom (OR TOP) of this note. Thank you for the consult. Infectious Disease will continue to follow. Please contact Infectious Disease for any questions or concerns. _ Physical Exam: General: NAD Neck: Supple. No masses. HEENT: PERRL. Normal lids and conjunctiva. Moist mucous membranes. Oropharynx without lesions, exudates or excessive erythema. Normal appearance of the external aspects of the nose and ears. Heart: Regular rhythm, normal rate. No murmur. No lower extremity edema. Lungs: Normal respiratory effort. Clear to auscultation bilaterally. No wheezes. No crackles. Abdomen: Soft. Non-tender. Non-distended. No masses or abdominal hernia. Msk: Right above-knee amputation. No digital cyanosis of remaining extremities. Normal strength and tone in remaining limbs (extent of detailed strength testing beyond this not provided in transcript). Skin: Warm and dry, no rashes except at left ankle. Chronic left ankle ulcer with serous secretion and associated venous stasis-type rash. Neuro: Alert. No facial droop or slurred speech. Extra-ocular movements intact. Sensation intact to soft touch in all 4 limbs (detailed distribution not provided in transcript). Psych: Appropriate mood. Full affect. Oriented to person, place, time, and situation Plan discussed with: Patient Dietary Evaluation Review Comments: Advance diet to 2GNA CCHO-60 diet Monitorr PO intakes Expected Outcomes/Goals: controlled DM, prevent uremic syndrome CHANELL PICKERING MD Sep 24, 2025 18:22
[2025-09-25] MEDS ORDERED: PANT40T PO (13:56)
== END 2025-09-24 18:20 | disposition home health service (06) | DRG 720 ==
LOC: ER 17:23 → OVERFLOW 18:35 → WEST WING 09-10 16:30 → TELE-WESTW 09-11 03:48 → TELE-EAST 09-15 22:03 → DOU 09-16 02:40 → TELE-CENTR 09-18 08:55 → TELE-EAST 09-18 20:35 → EAST 09-22 20:05
PROVIDERS: ADMIT Internal Medicine Geriatric Medicine; ATTEND Internal Medicine
DX: A41.9 Sepsis, unspecified organism (principal); N17.0 Acute kidney failure with tubular necrosis; G93.41 Metabolic encephalopathy; G40.209 Localization-related (focal) (partial) symptomatic epilepsy and epileptic syndromes with complex partial seizures, not intractable, without status epilepticus; L97.329 Non-pressure chronic ulcer of left ankle with unspecified severity; K56.7 Ileus, unspecified; R65.20 Severe sepsis without septic shock; K81.9 Cholecystitis, unspecified; K37 Unspecified appendicitis; L08.9 Local infection of the skin and subcutaneous tissue, unspecified; E11.65 Type 2 diabetes mellitus with hyperglycemia; I12.9 Hypertensive chronic kidney disease with stage 1 through stage 4 chronic kidney disease, or unspecified chronic kidney disease; F20.9 Schizophrenia, unspecified; N18.9 Chronic kidney disease, unspecified; E03.9 Hypothyroidism, unspecified; D64.9 Anemia, unspecified; K74.60 Unspecified cirrhosis of liver; G45.9 Transient cerebral ischemic attack, unspecified; Z20.822 Contact with and (suspected) exposure to COVID-19; F31.9 Bipolar disorder, unspecified; E11.22 Type 2 diabetes mellitus with diabetic chronic kidney disease; E11.51 Type 2 diabetes mellitus with diabetic peripheral angiopathy without gangrene; E11.621 Type 2 diabetes mellitus with foot ulcer; E11.628 Type 2 diabetes mellitus with other skin complications; I87.8 Other specified disorders of veins; E78.5 Hyperlipidemia, unspecified; G47.00 Insomnia, unspecified; K52.9 Noninfective gastroenteritis and colitis, unspecified; E87.5 Hyperkalemia; F41.9 Anxiety disorder, unspecified; Z89.611 Acquired absence of right leg above knee; Z79.4 Long term (current) use of insulin; Z91.0120 Allergy to eggs, unspecified; Z79.82 Long term (current) use of aspirin; Z79.85 Long-term (current) use of injectable non-insulin antidiabetic drugs; Z78.9 Other specified health status; Z79.899 Other long term (current) drug therapy; Z82.49 Family history of ischemic heart disease and other diseases of the circulatory system; Z86.11 Personal history of tuberculosis; Z86.73 Personal history of transient ischemic attack (TIA), and cerebral infarction without residual deficits; Z91.148 Patient's other noncompliance with medication regimen for other reason
CPT/HCPCS: 36415; 36600; 70450; 71045; 73630; 73700; 74175; 74176; 76705; 80048; 80053; 80061; 80076; 80307; 81001; 82140; 82306; 82550; 82607; 82805; 82962; 83605; 83690; 83735; 83880; 84100; 84443; 84484; 85025; 85610; 85730; 86703; 86780; 87040; 87081; 87086; 87426; 87804; 93306; 93926; 93971; 94640; 95819; 97110; 97116; 97163; 97530; G0378; J1815; J2003; J2470; J3490; J7060

== ENCOUNTER 2025-09-27 12:08 | Inpatient (IN) | payer MEDICAID ==
[~2025-09-27] VITALS: Ht 152.4 cm; Wt 65.4 kg
[~2025-09-27 12:08] MED LIST changes: -AMLO1TAB23 PO; +CEFD300C2 PO; -INSU100I4 SC; -INSU100I61 SC; -INSUINJ37 SC; -LOSA-534 PO; -MET50T PO
--- NOTE | 2025-09-27 12:33 | ED.PDOC ---
Altered Mental Status HPI Comments HPI:Bean 59 y.o male presents to the ED via EMS for an evaluation of ALOC. EMS reports patient is coming from home where he is taken care of by elderly mother and family members. On scene family stated that patient was seen at this hospital on 09/09/25 due to hyperglycemia and was discharged on 09/24/25. Per [facility] records, the following discharge diagnoses listed. 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 Patient was told to stop taking his insulin s/p discharge and has been without it for the past 2-3 days. BG per EMS read 566 with a repeat of 453 upon ED arrival. Patient is A+O x 3. pt is unsure if he took all his medications today. He became more alert s/p receiving 1 liters fluids given by EMS. Patient was altered earlier at home however after fluid hydration in route he per EMS is much more awake and alert. Initial Vitals BP: 142/74 HR: 80 RR: 14 O2: 99% RA Temp: 97.4 F Past Medical History: hypertension, dyslipidemia, diabetes mellitus complicated by diabetic foot ulcers, chronic kidney disease, thyroid disease, bipolar disorder, schizophrenia, and prior cerebrovascular accident. heavy alcohol use for 25 years, which he quit 15 years ago, Past Surgical History: Right above the knee amputation Social History: Unobtainable Allergies: Eggs HPI: Poor Historian. REVIEW OF SYSTEMS: CONSTITUTIONAL: Denies acute: fever, diaphoresis, chills, HEAD: Denies acute: headache, photophobia Eyes: Denies acute: Double vision, vision loss, eye pain, eye discharge. EARS: Denies acute: tinnitus, hearing loss, ear discharge, ear pain, THROAT: Denies acute: sore throat, swelling, difficulty swallowing , pain with swallowing, change in voice. NECK: Denies acute: neck pain, neck swelling, stiff neck. HEART: Denies acute : chest pain, palpitations, LUNGS: Denies acute: SOB, wheezing, cough, hemoptysis ABDOMEN: Denies acute: abdominal pain, Nausea, Vomiting, diarrhea, melena , hematemesis, hematochezia SKIN: Denies acute: rash, redness, lesions, itchiness. EXTREMITIES: Denies acute: calf pain, numbness, tingling, weakness, denies pain in extremity. Denies acute: Low back pain. Neuro: Denies acute: focal neurological deficit, motor or sensory focal neurological deficit, tremors, seizure like activity, dizziness, , loss of bowel or bladder function, cauda equina like symptoms. : Denies acute: dysuria, hematuria, flank pain, increase in urinary frequency. PSYCH: Denies acute: hallucination, suicidal ideation, homicidal ideation. PHYSICAL EXAM: General: ---mild-----acute distress, awake and alert. Head: normocephalic, atraumatic. No raccoon's eyes, no winters sign. Neck: supple, trachea is midline, no swelling. Throat: Normal phonation. Eyes:, no erythema, no purulent discharge, no proptosis, no icterus. Heart: regular rate, regular rhythm, no significant murmur appreciated. Lungs: no apparent respiratory distress, Able to speak in full sentences. No wheezing, no rhonchi, no crackles. No stridors Clear to auscultation bilaterally. Abdomen: Mildly generalized tender to palpation, non distended, soft, no guarding, no rebound, + bowel sounds. Neuro: Awake, Alert, oriented to name, self, situation, follows commands Speech is normal. Skin: no petechia, no purpura, no cyanosis, non-pale, not jaundice. Lower extremities: --no - Pitting edema no deformity, no focal swelling, no calf TTP. Patient has above the knee amputation on right lower extremity Makes eye contact. moves all four extremities. Face: no apparent facial droop. . No nuchal rigidity, Kernig's sign, Brudzinski's sign, no meningeal signs. ED COURSE: DISCLAIMER: This medical document was created using an electronic medical record system with voice recognition software and computerized dictation system. Although this document has been carefully reviewed, there might still be some phonetic and typographical errors. Occasional wrong-word or "sound-alike" substitutions may have occurred due to the inherent limitations of voice recognition software. These areas are purely typographical due to imperfections of the software programs and do not reflect any compromise in the patient's medical care. Please read the chart carefully and recognize, using context, where these substitutions have occurred. Chief Complaint: ALOC Time Seen by MD: 12:18 Reviewed Notes: Ward Supervisor Notes, Allergies Allergies: Coded Allergies: Egg Solids, Whole (Verified Allergy, Intermediate, VOMITING, 08/08/25) Home Meds Active Scripts Insulin Glargine (Lantus) 100 Unit/Ml Inj, 10 UNITS SC BID for 30 Days, #3 INJ Prov:PEDRO CARLTON RESIDENT 09/29/25 Pantoprazole Sodium Sesquihydr (Pantoprazole Sodium) 40 Mg Tab, 40 MG PO DAILY for 7 Days, #7 TAB Prov:UNIQUE TRAORE RESIDENT 09/25/25 Cefdinir (Cefdinir) 300 Mg Cap, 1 CAP PO BID for 7 Days, #14 CAP Prov:UNIQUE TRAORE RESIDENT 09/24/25 Pantoprazole Sodium Sesquihydr (Pantoprazole Sodium) 40 Mg Tab, 40 MG PO DAILY for 7 Days, #7 TAB Prov:PRANAY YAN RESIDENT 09/05/25 Reported Medications Hydrocodone-Acetaminophen (Hydrocodone Bitartrate/AC 10-325 mg) 1 Tab Tab, 1 TAB PO Q8HPRN PRN for PAIN SCALE 7 THRU 10, TAB 08/08/25 Aspirin (Aspirin Low Dose) 81 Mg Chw, 1 TAB PO DAILY, #30 TAB 3 Refills 08/08/25 Baclofen (Baclofen) 20 Mg Tab, 1 TAB PO BIDP PRN for FOR MUSCLE SPASM for 50 Da ys, #100 04/02/25 Gabapentin (Gabapentin) 400 Mg Cap, 1 CAP PO TID for 90 Days, #270 04/02/25 Hydroxyzine HCl (Hydroxyzine Hydrochloride) 50 Mg Tab, 1 TAB PO TIDP PRN for ANXIETY for 30 Days, #90 6/18/25 Olanzapine (OLANZAPINE) 2.5 Mg Tab, 1 TAB PO QPM for 30 Days, #30 04/02/25 Fluoxetine HCl (Fluoxetine HCl) 20 Mg Cap, 2 CAP PO QAM for 30 Days, #60 04/02/25 Apixaban Base (ELIQUIS) 5 Mg Tab, 1 TAB PO BID for 90 Days, #180 03/15/25 Ertugliflozin l-Pyroglutamic A (Steglatro) 5 Mg Tab, 1 TAB PO DAILY IN AM for 90 Days, #90 03/15/25 Quetiapine Fumerate (QUETIAPINE FUMARATE) 100 Mg Tab, 1 TAB PO HS for 30 Days, #30 03/15/25 Folic Acid (Folic Acid) 1 Mg Tab, 1 TAB PO DAILY for 90 Days, #90 03/15/25 Temazepam (Temazepam) 30 Mg Cap, 1 CAP PO HS for INSOMNIA for 30 Days, #30 03/15/25 Atorvastatin Calcium (ATORVASTATIN CALCIUM) 20 Mg Tab, 1.5 TAB PO DAILY for 90 Days, #135 30 MG PO IN THE MORNING 03/15/25 Information Source: Emergency Med Personnel Mode of Arrival: EMS Severity: Moderate Timing: Days Was a procedure done? Was a procedure done?: No Differential Diagnosis (ALOC) Differential Diagnosis: Dehydration, Hypoglycemia, DKA, Encephalopathy, Meningitis, Sepsis, Hypoxemia, Seizure, CVA, Mass Lesion, Drug Overdose, ETOH Intoxication, Heart Failure, Renal Failure, Other (DDX include CVA, TGA, cerebellar ischemia/infarct, carotid stenosis, Intracranial mass/infection/bleed, encephalopathy, electrolyte abnormality, thyroid disease, hydrocephalus, hypoglycemia, drug toxicity, cardiac arrhythmia, seizure, infection in the elderly, Hyperammonemia., kidney failure., sepsis.) X-Ray, Labs, Meds, VS Vital Signs Date Time Temp Pulse Resp B/P (MAP) Pulse Ox O2 Delivery O2 Flow Rate FiO2 09/27/25 14:00 89 13 115/68 (84) 100 09/27/25 12:55 98.2 90 16 138/108 (118) 99 98.2 09/27/25 12:55 90 16 99 Room Air* 0 21 09/27/25 12:25 97.4 80 14 142/74 99 97.4 09/27/25 12:23 84 Lab Test 09/27/25 14:14 09/27/25 13:52 09/27/25 13:02 09/27/25 12:48 Range/Units POC Glucose 370 H 70-106 mg/dl Ammonia 17 11-32 umol/L Troponin I High Sensitivity 3 L 3 L </=54 ng/L Beta-Hydroxybutyric Acid 0.415 H 0.362 < 0.4 mmol/L White Blood Count 5.2 4.4-10.8 10^3/uL Red Blood Count 3.82 L 4.5-5.90 10^6/uL Hemoglobin 11.4 #L 13.5-17.5 g/dL Hematocrit 34.9 #L 41.0-53.0 % Mean Corpuscular Volume 91.3 80.0-100.0 fL Mean Corpuscular Hemoglobin 29.9 28.0-32.0 pg Mean Corpuscular Hemoglobin Concent 32.7 32.0-36.0 g/dL Red Cell Distribution Width 15.7 H 11.8-14.3 % Platelet Count 531 H 140-450 10^3/uL Mean Platelet Volume 7.2 6.9-10.8 fL Neutrophils (%) (Auto) 63.7 37.0-80.0 % Lymphocytes (%) (Auto) 21.7 10.0-50.0 % Monocytes (%) (Auto) 7.7 0.0-12.0 % Eosinophils (%) (Auto) 5.7 0.0-7.0 % Basophils (%) (Auto) 1.2 0.0-2.0 % Neutrophils # (Auto) 3.3 1.6-8.6 10 ^3/uL Lymphocytes # (Auto) 1.1 0.4-5.4 10 ^3/uL Monocytes # (Auto) 0.4 0-1.3 10 ^3/uL Eosinophils # (Auto) 0.3 0-0.8 10 ^3/uL Basophils # (Auto) 0.1 0-0.2 10 ^3/uL Nucleated Red Blood Cells 0.0 % Sodium Level 140 136-145 mmol/L Potassium Level 4.5 3.5-5.1 mmol/L Chloride Level 106 98-107 mmol/L Carbon Dioxide Level 20 20-31 mmol/L Anion Gap 14 5-15 Blood Urea Nitrogen 24 H 9-23 mg/dL Creatinine 1.55 H 0.700-1.30 mg/dL Glomerular Filtration Rate Calc 51 >90 mL/min BUN/Creatinine Ratio 15.5 10.0-20.0 Serum Glucose 471 #*H 74-106 mg/dL Lactic Acid Level 1.2 0.4-2.0 mmol/L Calcium Level 8.7 8.7-10.4 mg/dL Magnesium Level 1.8 1.6-2.6 mg/dL Total Bilirubin 0.3 0.2-1.0 mg/dL Aspartate Amino Transferase (AST) 11 L 13-40 U/L Alanine Aminotransferase (ALT) 22 7-40 U/L Alkaline Phosphatase 173 H 46-116 U/L Total Protein 7.0 5.7-8.2 g/dL Albumin 4.1 3.2-4.8 g/dL Urine Color Colorless Yellow Urine Clarity Clear Clear Urine pH 6.5 5.0-9.0 Urine Specific [place] 1.015 1.001-1.035 Urine Protein 1+ H Negative Urine Ketones Negative Negative Urine Blood Negative Negative /uL Urine Nitrite Negative Negative Urine Bilirubin Negative Negative Urine Urobilinogen Normal Negative mg/dL Urine Leukocyte Esterase Negative Negative /uL Urine RBC None seen 0 - 3 /hpf Urine Microscopic WBC 2 0-3 /HPF Urine Squamous Epithelial Cells Few <5 /hpf Urine Bacteria None seen None Seen /hpf Urine Yeast (Budding) Occasional None Seen /hpf Urine Osmolality 430 mOsm/kg Urine Glucose 4+ H Normal mg/dL Urine Opiates Screen Neg NEGATIVE Urine Fentanyl Screen Neg NEGATIVE Urine Barbiturates Screen Neg NEGATIVE Urine Phencyclidine Screen Neg NEGATIVE Urine Amphetamines Screen Neg NEGATIVE Urine Benzodiazepines Screen Neg NEGATIVE Urine Cocaine Screen Neg NEGATIVE Urine Cannabinoids Screen Neg NEGATIVE Test 09/27/25 12:20 Range/Units POC Glucose 453 *H 70-106 mg/dl [facility] [id number] [place] [id number] Ph: [phone] DIAGNOSTIC IMAGING Diagnostic Imaging Report : [id number] Signed PATIENT: LISA BENITES ACCT: [id number] UNIT: [id number] : 1965 LOC: ER ROOM / BED: / AGE / SEX: 59 / M ADM STATUS: REG ER SERVICE 1217 ORDERING PHYSICIAN: SALINAS KWAN DO PROCEDURE(s): CXRP - CHEST PORTABLE REASON: al ORDER NUMBER(s): [id number], ACCESSION NUMBER(s): [id number] CHEST RADIOGRAPH INDICATION: aloc TECHNIQUE: Single frontal view of the chest was obtained COMPARISON: XY CHEST XRAY 1 VIEW on DOS: 09/16/25, XY CHEST PORTABLE on DOS: 09/09/25, XY CHEST XRAY 1 VIEW on DOS: 08/06/25 FINDINGS: Lines and Tubes: None Lungs: No focal consolidation. Pleura: No effusion. No pneumothorax. Cardiomediastinal contours: Borderline cardiomegaly Bones: No acute osseous abnormality. IMPRESSION: No acute cardiopulmonary disease. ATED BY: JAMILA LONG DO [place] [address] Ph: [phone] DIAGNOSTIC IMAGING Diagnostic Imaging Report : [id number] Signed PATIENT: LISA BENITES ACCT: [id number] UNIT: [id number] : 1965 LOC: ER ROOM / BED: / AGE / SEX: 59 / M ADM STATUS: REG ER SERVICE 1217 ORDERING PHYSICIAN: SALINAS KWAN DO PROCEDURE(s): HWOCT - HEAD WITHOUT CONTRAST REASON: al ORDER NUMBER(s): [id number], ACCESSION NUMBER(s): [id number] PROCEDURE: CT HEAD WITHOUT CONTRAST Study Date and Requested Time: 09/27/2025 12:33 PM History: aloc COMPARISON: CT HEAD WITHOUT CONTRAST on DOS: 09/15/25, CT HEAD WITHOUT CONTRAST on DOS: 03/30/25, CT HEAD WITHOUT CONTRAST on DOS: 03/15/25 Dose: CTDI: 50.21 mGy DLP: 1502.29 mGycm TECHNIQUE: Multiplanar images obtained through the brain without intravenous contrast. FINDINGS: Study is slightly limited by Motion artifact. [id number] Diffuse brain atrophy. No hemorrhages, masses, mass effect, midline shift, herniation or cytotoxic edema following a large vascular territory. No intra-axial or extra-axial fluid collections. No evidence of hydrocephalus. The basal cisterns are patent. The pituitary gland, sella and parasellar regions are unremarkable. The cerebellar tonsils are in normal position. The cerebellum is unremarkable. The orbits and globes are unremarkable. Mild mucoperiosteal thickening of the ethmoid air cells. Otherwise, the paranasal sinuses and mastoids are clear. There are no worrisome calvarial lesions. IMPRESSION: Study slightly limited by motion artifact. Otherwise, No evidence of acute intracranial abnormality. ATED BY: JAMILA LONG DO DICTATED DATE/TIME: 09/27/251303 SIGNED BY: JAMILA LONG DO SIGNED DATE/TIME: 09/27/251303 DICTATED DATE/TIME: 09/27/251300 SIGNED BY: JAMILA LONG DO SIGNED DATE/TIME: 09/27/251300 CC: Time of 1ST Reevaluation: 12:34 Reevaluation 1ST: Unchanged Patient Education/Counseling: Other (AMS) Family Education/Counseling: No Family Present Comments MDM: patient presented with the above HPI.-altered mental status----workup was initiated. patient was found with the above mentioned diagnosis. the following medications were ordered: please refer to order lists of meds and tests obtained by myself Dr. Kwan. Patient ED course and VS have been stabilized. Patient has been reassessed in the ED and remained in a stable condition. Patient has been observed in the ED adequate length of time to insure improvement/stability. Escalation of care considered: Consideration of escalation to observation or admission CT Head and chest x-ray were obtained which were unremarkable. Patient was ADMITTED to the medicine team for further evaluation and treatment of their presentation. All the reports of any imaging studies that were ordered by myself were reviewed by myself. Departure 1 Departure Time of Disposition: 13:39 Impression: Primary Impression: Altered mental state Additional Impressions: Hyperglycemia Diabetes Disposition: ADMITTED INPATIENT Admit to: Tele Condition: Serious e-Prescriptions Insulin Glargine (Lantus) 100 Unit/Ml Inj 10 UNITS SC BID for 30 Days, #3 INJ Prov: PEDRO CARLTON RESIDENT 09/29/25 Discharged With: Self Critical Care Note Critical Care Time?: Yes (45 min-critical care time only) Critical care comment: Due to a high probability of clinically significant, life threatening deter ioration, the patient required my highest level of preparedness to intervene emergently and I personally spent this critical care time directly and personally managing the patient. This critical care time included obtaining a history; examining the patient; pulse oximetry; ordering and review of studies; arranging urgent treatment with development of a management plan; evaluation of patient's response to treatment; frequent reassessment; and, discussions with other providers. This critical care time was performed to assess and manage the high probability of imminent, life-threatening deterioration that could result in multi-organ fa ilure. It was exclusive of separately billable procedures and treating other patients and teaching time. Please see my other sections and the rest of the note for further information on patient assessment and treatment. Heart Score Heart Score: Heart Score Response (Comments) Value History N/A 0 EKG N/A 0 Age N/A 0 Risk Factors N/A 0 Troponin N/A 0 Total 0 I personally scribed for SALINAS KWAN DO ([email or web address]) on 09/27/25 at 12:33. Elec tronically submitted by Chelsea Fox ([facility]). I personally scribed for SALINAS KWAN DO ([email or web address]) on 09/27/25 at 12:47. Electr onically submitted by Chelsea Fox ([facility]). I personally scribed for SALINAS KWAN DO ([email or web address]) on 09/27/25 at 12:49. Electronically submitted by Chelsea Fox ([facility]). I personally scribed for SALINAS KWAN DO ([email or web address]) on 09/27/25 at 13:44. Electronically submitted by Chelsea Fox ([facility]). I personally scribed for SALINAS KWAN DO ([email or web address]) on 09/27/25 at 18:43. Electronically submitted by Chelsea Fox ([facility]). SALINAS KWAN DO Sep 27, 2025 12:33
[2025-09-27] MEDS: SODIUM CHLORIDE 0.9% 1,000 ML IV ONE (12:52)
[2025-09-27 12:55] VITALS: PULSE 90; RESP 16; O2SAT 99
--- NOTE | 2025-09-27 13:03 | [facility] ---
CHEST RADIOGRAPH INDICATION: aloc TECHNIQUE: Single frontal view of the chest was obtained COMPARISON: XY CHEST XRAY 1 VIEW on DOS: 09/16/25, XY CHEST PORTABLE on DOS: 09/09/25, XY CHEST XRAY 1 VIEW on DOS: 08/06/25 FINDINGS: Lines and Tubes: None Lungs: No focal consolidation. Pleura: No effusion. No pneumothorax. Cardiomediastinal contours: Borderline cardiomegaly Bones: No acute osseous abnormality. IMPRESSION: No acute cardiopulmonary disease.
--- NOTE | 2025-09-27 13:06 | [facility] ---
PROCEDURE: CT HEAD WITHOUT CONTRAST Study Date and Requested Time: 09/27/2025 12:33 PM History: aloc COMPARISON: CT HEAD WITHOUT CONTRAST on DOS: 09/15/25, CT HEAD WITHOUT CONTRAST on DOS: 03/30/25, CT HEAD WITHOUT CONTRAST on DOS: 03/15/25 Dose: CTDI: 50.21 mGy DLP: 1502.29 mGycm TECHNIQUE: Multiplanar images obtained through the brain without intravenous contrast. FINDINGS: Study is slightly limited by Motion artifact. [id number] Diffuse brain atrophy. No hemorrhages, masses, mass effect, midline shift, herniation or cytotoxic edema following a large vascular territory. No intra-axial or extra-axial fluid collections. No evidence of hydrocephalus. The basal cisterns are patent. The pituitary gland, sella and parasellar regions are unremarkable. The cerebellar tonsils are in normal position. The cerebellum is unremarkable. The orbits and globes are unremarkable. Mild mucoperiosteal thickening of the ethmoid air cells. Otherwise, the paranasal sinuses and mastoids are clear. There are no worrisome calvarial lesions. IMPRESSION: Study slightly limited by motion artifact. Otherwise, No evidence of acute intracranial abnormality.
[2025-09-27 13:18] LABS: Mean Corpuscular Hemoglobin 29.9 pg (28.0-32.0)
[2025-09-27 13:19] LABS: Hematocrit 34.9 % (41.0-53.0); Hemoglobin 11.4 g/dL (13.5-17.5); Mean Corpuscular Volume 91.3 fL (80.0-100.0); Nucleated Red Blood Cells % 0.0 %
[2025-09-27 13:31] LABS: Alanine Aminotransferase 22 U/L (7-40); Albumin 4.1 g/dL (3.2-4.8); Anion Gap 14 (5-15); BUN/Creatinine Ratio 15.5 (10.0-20.0); Carbon Dioxide 20 mmol/L (20-31); Chloride 106 mmol/L (98-107); Magnesium 1.8 mg/dL (1.6-2.6); Potassium 4.5 mmol/L (3.5-5.1); Sodium 140 mmol/L (136-145); Total Protein 7.0 g/dL (5.7-8.2)
[2025-09-27 13:40] LABS: Alkaline Phosphatase 173 U/L (46-116); Bilirubin, Total 0.3 mg/dL (0.2-1.0); Blood Urea Nitrogen 24 mg/dL (9-23); Calcium 8.7 mg/dL (8.7-10.4)
[2025-09-27 13:41] LABS: Glucose 471 mg/dL (74-106)
[2025-09-27 14:09] LABS: Urine Budding Yeast OCCASIONAL /hpf (None Seen); Urine Protein, UAD 1+ (Negative)
[2025-09-27] MEDS: InsuLIN REG 1unit/0.01ml Soln (100units/ml) IV ONE (14:18)
[2025-09-27] MEDS ORDERED: ONDANSETRON HCL 4 MG/2 ML VIAL IV PRN (15:15)
[2025-09-27] MEDS ORDERED: DOCUSATE SOD 100 MG CAP PO PRN (15:15)
[2025-09-27] MEDS ORDERED: NITROGLYCERIN 0.4 MG SL TAB SL PRN (15:15)
[2025-09-27] MEDS ORDERED: DEXTROSE (50%) 50ML SYRG IV PRN (15:15)
[2025-09-27] MEDS: InsuLIN REG 1unit/0.01ml Soln (100units/ml) SC SCH (17:00)
[2025-09-27] MEDS: ACCU-CHEK COMFORT CURVE STRIP VI SCH (17:00)
[2025-09-27] MEDS: SODIUM CHLORIDE 0.9% 1,000 ML IV SCH (17:09)
--- NOTE | 2025-09-27 18:03 | DVHHP2 ---
History of Present Illness Reason for Visit: confusion History of Present Illness 59-year-old male with a complex past medical history including diabetes mellitus, hypertension, breakthrough seizures, prior sepsis, diabetic foot disease, status post right above-knee amputation, Achilles tendinopathy, peripheral arterial disease, ELVIS on CKD, hyperlipidemia, anemia, alcohol abuse (in remission), history of CVA, bipolar disorder, and schizophrenia, presents with altered level of consciousness. The patient was recently discharged on September 25, 2025, at which time his diagnosis was metabolic encephalopathy secondary to sepsis, related to a non-healing left ankle wound. He now returns to the ED from home. History is limited as the patient is a poor historian. Per the ED team and family report, the patient lives at home and is cared for by his elderly mother and other family members. Family reports that during his prior admission he was treated for hyperglycemia and was discharged home with instructions not to take insulin, and as a result, he has not taken insulin for the past 23 days. When EMS arrived, the patients blood glucose was 566. The patient confirmed he had not taken insulin. In the ED, after receiving IV hydration, the patient became more alert. The patient has a remote history of alcohol use, having quit 15 years ago. No family members were present at the bedside during evaluation. Laboratory studies revealed hemoglobin 11.4 / hematocrit 34.9, platelet count 531, creatinine 1.55, glucose 471, lactic acid 1.2, AST 11, alkaline phosphatase 170, and beta-hydroxybutyrate 0.362, making DKA unlikely. CBC otherwise unremarkable with no leukocytosis. CT scan of the brain was unremarkable, and chest X-ray was unremarkable. The patient complained of abdominal pain, though this was not concerning during his prior admission, and he had a CT abdomen prior to discharge. Given persistent altered mental status, severe hyperglycemia, and medication nonadherence, the patient will be admitted for acute metabolic encephalopathy likely secondary to uncontrolled diabetes. Past Medical History See HPI above Past Surgical History See HPI above Family History Reviewed, non-contributory to the management of this case. Past Social History The patient lives at home, denies smoking, alcohol or illicit drugs abuse. Review of Systems Constitutional: No: Fever, Chills, Sweats, Weakness, Malaise, Other Eyes: No: Pain, Vision change, Conjunctivae inflammation, Eyelid inflammation, Other, Redness ENT: No: Ear pain, Ear discharge, Nose pain, Nose discharge, Nose congestion, Mouth pain, Mouth swelling, Throat pain, Throat swelling, Other Respiratory: No: Cough, Dry, Shortness of breath, SOB with excertion, Wheezing, Hemoptysis, Pleuritic Pain, Sputum, Wheezing, Other Cardiovascular: No: Chest Pain, Palpitations, Orthopnea, Paroxysmal Noc. Dyspnea, Edema, Lt Headedness, Other Gastrointestinal: Abdominal Pain; No: Nausea, Vomiting, Diarrhea, Constipation, Melena, Hematochezia, Other Genitourinary: No Dysuria, No Frequency, No Incontinence, No Hematuria, No Retention, No Other Musculoskeletal: No: other, neck pain, shoulder pain, arm pain, back pain, hand pain, leg pain, foot pain Skin: No: Rash, Lesions, Jaundice, Bruising, Other Neurological: Confusion; No: Weakness, Numbness, Incoordination, Change in spee ch, Seizures, Other Allergies: Coded Allergies: Egg Solids, Whole (Verified Allergy, Intermediate, VOMITING, 08/08/25) Medications Current Medications Medications Dose Ordered Sig/Niesha Route Start Time Stop Time Status Last Admin Dose Admin Apixaban 5 mg BID PO 09/27/25 22:00 Atorvastatin Calcium 30 mg HS PO 09/27/25 22:00 Pantoprazole Sodium 40 mg DAILY PO 09/28/25 10:00 Aspirin 81 mg DAILY PO 09/28/25 10:00 Folic Acid 1 mg DAILY PO 09/28/25 10:00 Sodium Chloride 1,000 ml @ 70 mls/hr [id number] IV 09/27/25 15:15 09/27/25 17:09 70 MLS/HR Ondansetron HCl 4 mg Q4HP PRN IV 09/27/25 15:15 Docusate Sodium 100 mg BIDPRN PRN PO 09/27/25 15:15 Nitroglycerin 0.4 mg Q5MINP PRN SL 09/27/25 15:15 Diagnostic Test (Pha) 1 strip ACHS 09/27/25 17:00 Insulin Human Regular ACHS SC 09/27/25 17:00 Dextrose 50 ml UD PRN IV 09/27/25 15:15 Exam Vital Signs Vital Signs Date Time Temp Pulse Resp B/P (MAP) Pulse Ox O2 Delivery O2 Flow Rate FiO2 09/27/25 17:00 93 21 153/72 (99) 99 09/27/25 12:55 98.2 98.2 09/27/25 12:55 Room Air* 0 21 General Appearance: Alert, Cooperative, Other (Able to answer some questions) HEENT: Atraumatic, PERRLA, EOMI, Mucous membr. moist/pink Respiratory: Clear to auscultation, Normal air movement Cardiovascular: Regular rate, Normal S1, Normal S2, No murmurs Abdominal: Normal bowel sounds, Soft, No hepatospenomegaly, No masses Extremities: No clubbing, No cyanosis, No edema, Normal pulses, No tenderness/swelling Skin: No rashes, No breakdown, No significant lesion Neuro: Other (Right AKA) Labs/Xrays CT scan of the brain unremarkable Chest x-ray unremarkable I reviewed labs, imaging CT scan abdomen pelvis, EKG and all diagnostic studies on this patient from ED records and the medical chart Labs Test 09/27/25 16:55 09/27/25 14:14 09/27/25 13:52 09/27/25 13:02 Range/Units Troponin I High Sensitivity 3 L </=54 ng/L POC Glucose 370 H 70-106 mg/dl Ammonia 17 11-32 umol/L Beta-Hydroxybutyric Acid 0.415 H < 0.4 mmol/L White Blood Count 5.2 4.4-10.8 10^3/uL Red Blood Count 3.82 L 4.5-5.90 10^6/uL Hemoglobin 11.4 #L 13.5-17.5 g/dL Hematocrit 34.9 #L 41.0-53.0 % Mean Corpuscular Volume 91.3 80.0-100.0 fL Mean Corpuscular Hemoglobin 29.9 28.0-32.0 pg Mean Corpuscular Hemoglobin Concent 32.7 32.0-36.0 g/dL Red Cell Distribution Width 15.7 H 11.8-14.3 % Platelet Count 531 H 140-450 10^3/uL Mean Platelet Volume 7.2 6.9-10.8 fL Neutrophils (%) (Auto) 63.7 37.0-80.0 % Lymphocytes (%) (Auto) 21.7 10.0-50.0 % Monocytes (%) (Auto) 7.7 0.0-12.0 % Eosinophils (%) (Auto) 5.7 0.0-7.0 % Basophils (%) (Auto) 1.2 0.0-2.0 % Neutrophils # (Auto) 3.3 1.6-8.6 10 ^3/uL Lymphocytes # (Auto) 1.1 0.4-5.4 10 ^3/uL Monocytes # (Auto) 0.4 0-1.3 10 ^3/uL Eosinophils # (Auto) 0.3 0-0.8 10 ^3/uL Basophils # (Auto) 0.1 0-0.2 10 ^3/uL Nucleated Red Blood Cells 0.0 % Sodium Level 140 136-145 mmol/L Potassium Level 4.5 3.5-5.1 mmol/L Chloride Level 106 98-107 mmol/L Carbon Dioxide Level 20 20-31 mmol/L Anion Gap 14 5-15 Blood Urea Nitrogen 24 H 9-23 mg/dL Creatinine 1.55 H 0.700-1.30 mg/dL Glomerular Filtration Rate Calc 51 >90 mL/min BUN/Creatinine Ratio 15.5 10.0-20.0 Serum Glucose 471 #*H 74-106 mg/dL Lactic Acid Level 1.2 0.4-2.0 mmol/L Calcium Level 8.7 8.7-10.4 mg/dL Magnesium Level 1.8 1.6-2.6 mg/dL Total Bilirubin 0.3 0.2-1.0 mg/dL Aspartate Amino Transferase (AST) 11 L 13-40 U/L Alanine Aminotransferase (ALT) 22 7-40 U/L Alkaline Phosphatase 173 H 46-116 U/L Total Protein 7.0 5.7-8.2 g/dL Albumin 4.1 3.2-4.8 g/dL Test 09/27/25 12:48 Range/Units Urine Color Colorless Yellow Urine Clarity Clear Clear Urine pH 6.5 5.0-9.0 Urine Specific Welch 1.015 1.001-1.035 Urine Protein 1+ H Negative Urine Ketones Negative Negative Urine Blood Negative Negative /uL Urine Nitrite Negative Negative Urine Bilirubin Negative Negative Urine Urobilinogen Normal Negative mg/dL Urine Leukocyte Esterase Negative Negative /uL Urine RBC None seen 0 - 3 /hpf Urine Microscopic WBC 2 0-3 /HPF Urine Squamous Epithelial Cells Few <5 /hpf Urine Bacteria None seen None Seen /hpf Urine Yeast (Budding) Occasional None Seen /hpf Urine Glucose 4+ H Normal mg/dL SEPSIS Sepsis Screen Date sepsis recognized/suspect: Sep 27, 2025 Time Sepsis recognized/suspect: 1254 Recent Procedure: No On Antibiotic Therapy: No Respiratory Rate >20: No Heart Rate >90: No Temp<36 C (96.8 F) or >38.3 C: No SBP <90 or MAP <65 mmHG: No New Acute Mental Status Change: No Is the patient on CPAP, BIPAP,: No Physician Orders Quality Control Analyst (09/27/25 ) Chest Portable (09/27/25 12:17) Electrocardigram (09/27/25 12:17) Head Without Contrast (09/27/25 12:17) Apixaban (Eliquis) (09/27/25 22:00) Pantoprazole Tablet (Protonix Tablet) (09/28/25 10:00) Aspirin Chewable Tablet (09/28/25 10:00) Folic Acid Tablet (09/28/25 10:00) Admit (09/27/25 15:09) Allergies (09/27/25 15:09) Code Status (09/27/25 15:09) Sodium Chloride 0.9% (09/27/25 15:15) Ondansetron Hcl (Zofran) (09/27/25 15:15) Docusate Sodium Capsule (Colace Capsule) (09/27/25 15:15) Fall Risk Precautions In Place QSHIFT (09/27/25 15:09) Complete Blood Count (09/28/25 04:00) Comprehensive Metabolic Panel (09/28/25 04:00) Cardiac Diet-2gna,Lofat,Lochol (09/27/25 Dinner) Condition: Stable (09/27/25 15:09) Maintain Bed Rest (09/27/25 15:09) Sequential Compression Device (09/27/25 ) Nitroglycerin Sublingual (Ntrostat Subli (09/27/25 15:15) Stat Ekg For Chest Pain (09/27/25 15:09) Notify Of Changes From Base (09/27/25 15:09) Doctor Assistant For 24 Hours (09/27/25 15:09) Emergency Dysrhythmia Protocol (09/27/25 15:09) Rhythm Strips Once Every Shift (09/27/25 15:09) Oxygen By Nasal Cannula (09/27/25 15:09) Glucose Blood (Accu-Chek Comfort Curve T (09/27/25 17:00) Insulin R (Human) (Insulin R) (09/27/25 17:00) Dextrose 50% Syringe (09/27/25 15:15) Atorvastatin (Lipitor) (09/27/25 22:00) Vital Signs Date Time Temp Pulse Resp B/P (MAP) Pulse Ox O2 Delivery O2 Flow Rate FiO2 09/27/25 17:00 93 21 153/72 (99) 99 09/27/25 16:00 88 12 138/74 (95) 99 09/27/25 14:00 89 13 115/68 (84) 100 09/27/25 12:55 98.2 90 16 138/108 (118) 99 98.2 09/27/25 12:55 90 16 99 Room Air* 0 21 09/27/25 12: 97.4 80 14 142/74 99 97.4 09/27/25 12:23 84 Laboratory Tests Test 09/27/25 13:02 Lactic Acid Level 1.2 mmol/L (0.4-2.0) White Blood Count 5.2 10^3/uL (4.4-10.8) Medications Medications Dose Ordered Sig/Niesha Route Start Time Stop Time Status Last Admin Dose Admin Insulin Human Regular 5 units ONCE ONCE IV 09/27/25 13:45 09/27/25 13:49 DC 09/27/25 14:18 5 UNITS Sodium Chloride 1,000 ml @ 70 mls/hr [id number] IV 09/27/25 15:15 09/27/25 17:09 70 MLS/HR Sodium Chloride 1,000 ml @ 1,000 mls/hr Q1H ONCE IV 09/27/25 12:30 09/27/25 13:29 DC 09/27/25 12:52 1,000 MLS/HR Assessment/Plan Assessment/Plan 59-year-old male admitted for acute metabolic encephalopathy likely due to severe hyperglycemia from insulin nonadherence, in the setting of recent hospitalization and complex medical comorbidities, requiring IV fluids, insulin therapy, and close monitoring. Acute metabolic encephalopathy Likely secondary to hyperglycemia Altered mental status on presentation Improved with IV hydration CT head unremarkable Neuro checks q4h cont to control glucose not likely infection cxr and ua no acute infection , wound to ankle does not appear with infection acute Severe hyperglycemia without DKA Glucose 566 by EMS, 471 in ED Beta-hydroxybutyrate 0.362 (not DKA) IV insulin given in ED Continue insulin therapy Accu-checks will need to send home with insulin, pt states was told to hold insulin Diabetes mellitus with medication nonadherence Has not taken insulin for 23 days Diabetes education ELVIS on CKD Creatinine 1.55 IV fluids Avoid nephrotoxins Monitor renal function acute on chronic Abdominal pain CT abdomen recently completed prior admission Monitor symptoms chronic problems Thrombocytosis Monitor CBC Anemia History of diabetic foot disease and right above-knee amputation History of seizures Continue home antiepileptics if applicable Bipolar disorder and schizophrenia/Continue psychiatric medications as appropriate History of alcohol abuse in remission Quit 15 years ago Diabetes mellitus Chronic kidney disease Hypertension Hyperlipidemia Anemia Peripheral arterial disease History of CVA Seizure disorder Bipolar disorder Schizophrenia Right above-knee amputation History of alcohol abuse (in remission) FEN / PPx Fluids: IV hydration Electrolytes: Monitor BMP Nutrition: Diabetic diet DVT Prophylaxis: SCDs or pharmacologic prophylaxis GI Prophylaxis: As indicated Disposition Admit to medicine for management of acute metabolic encephalopathy and severe hyperglycemia. Continue IV fluids, insulin therapy, and monitoring of mental status and renal function. insulin regimen prior to discharge and coordinate safe discharge planning with family. Plan discussed with: Patient My Orders Orders - DALILA PATTERSON DNP Procedure Category Date Status Time Apixaban (Eliquis) PHA 09/27/25 In Process 22:00 Pantoprazole Tablet PHA 09/28/25 In Process (Protonix Tablet) 10:00 Aspirin Chewable PHA 09/28/25 In Process Tablet 10:00 Folic Acid Tablet PHA 09/28/25 In Process 10:00 Admit ADMIT 09/27/25 Transmitted 15:09 Allergies ARTUR 09/27/25 In Process 15:09 Code Status CODE 09/27/25 Transmitted 15:09 Sodium Chloride 0.9% PHA 09/27/25 In Process 15:15 Ondansetron Hcl PHA 09/27/25 In Process (Zofran) 15:15 Docusate Sodium PHA 09/27/25 In Process Capsule (Colace 15:15 Fall Risk Precautions ARTUR 09/27/[address] 15:09 Complete Blood Count LAB 09/28/25 Verified 04:00 Comprehensive LAB 09/28/25 Verified Metabolic Panel 04:00 Cardiac DIET 09/27/25 Transmitted Diet-2gna,Lofat,Lochol Dinner Condition: Stable [facility] 09/27/25 In Process 15:09 Maintain Bed Rest [facility] 09/27/25 In Process 15:09 Sequential [facility] 09/27/25 In Process Compression Device Nitroglycerin [facility] 09/27/25 In Process Sublingual (Ntrostat 15:15 Stat Ekg For Chest [facility] 09/27/25 In Process Pain 15:09 Notify Md Of Changes [facility] 09/27/25 In Process From Base 15:09 Doctor Assistant For [facility] 09/27/25 In Process 24 Hours 15:09 Emergency Dysrhythmia [facility] 09/27/25 In Process Protocol 15:09 Rhythm Strips Once [facility] 09/27/25 In Process Every Shift 15:09 Oxygen By Nasal RT 09/27/25 Transmitted Cannula 15:09 Glucose Blood [facility] 09/27/25 In Process (Accu-Chek Comfort 17:00 Insulin R (Human) PHA 09/27/25 In Process (Insulin R) 17:00 Dextrose 50% Syringe PHA 09/27/25 In Process 15:15 Atorvastatin (Lipitor) [facility] 09/27/25 In Process 22:00 Date of Service: Sep 27, 2025 Billing Provider: DALILA PATTERSON DNP Common Visit Codes: [id number] INP/OBS CARE (HIGH) DALILA PATTERSON DNP Sep 27, 2025 18:03
[2025-09-27 18:30] VITALS: PULSE 88; RESP 16; O2SAT 92
[2025-09-27 21:00] VITALS: BP 114/63; PULSE 87; RESP 18; TEMP 97.7; O2SAT 100
[2025-09-27] MEDS: APIXABAN 5 MG TAB PO SCH (21:26)
[2025-09-27] MEDS: ATORVASTATIN 20 MG TAB PO SCH (21:27)
[2025-09-28] VITALS (7 sets, daily range): BP systolic 113–143; BP diastolic 62–80; PULSE 85–98; RESP 17–18; TEMP 97.8–99.2; O2SAT 99–100
[2025-09-28 04:59] LABS: Hematocrit 29.9 % (41.0-53.0); Hemoglobin 10.0 g/dL (13.5-17.5); Mean Corpuscular Hemoglobin 30.0 pg (28.0-32.0); Mean Corpuscular Volume 89.4 fL (80.0-100.0); Nucleated Red Blood Cells % 0.1 %
[2025-09-28 05:20] LABS: Alanine Aminotransferase 19 U/L (7-40); Albumin 3.5 g/dL (3.2-4.8); Alkaline Phosphatase 93 U/L (46-116); Anion Gap 11 (5-15); BUN/Creatinine Ratio 17.1 (10.0-20.0); Blood Urea Nitrogen 21 mg/dL (9-23); Carbon Dioxide 24 mmol/L (20-31); Potassium 4.6 mmol/L (3.5-5.1); Total Protein 6.0 g/dL (5.7-8.2)
[2025-09-28 05:26] LABS: Bilirubin, Total 0.2 mg/dL (0.2-1.0); Calcium 8.4 mg/dL (8.7-10.4); Chloride 112 mmol/L (98-107); Glucose 144 mg/dL (74-106); Sodium 147 mmol/L (136-145)
--- NOTE | 2025-09-28 10:10 | ECG ---
[facility] Test Date: 2025-09-27 Test Time: 12:23:50 Pat Name: LISA BENITES Department: ED Room: 0283 Gender: M Clerk Entry Level: laurence : 1965 Requested By: SALINAS KWAN Order Number: [id number] Reading MD: Roshan Velasco Measurements Intervals Frontier Rate: 84 P: 30 SD: 154 QRS: 17 QRSD: 85 T: 26 QT: 400 QTc: 473 Interpretive Statements Sinus rhythm Abnormal R-wave progression, early transition Electronically Signed On 10-02-2025 8:33:29 PST by Roshan Velasco Please click the below link to view image of tracing.
[2025-09-28] MEDS: MAGNESIUM SULFATE 1GM/100ML 100 ML IV ONE (10:15)
[2025-09-28] MEDS: PANTOPRAZOLE 40 MG TAB PO SCH (10:59)
[2025-09-28] MEDS: FOLIC ACID 1 MG TAB PO SCH (10:59)
[2025-09-28 12:06] LABS: Creatine Kinase IFCC 53 U/L (46-171)
[2025-09-28] MEDS: INSULIN LANTUS (GLARGINE) 1 /0.01ml (100units/ml) SC SCH (12:44)
--- NOTE | 2025-09-28 12:59 | DVHPNRES ---
Progress Note Date Seen: Sep 28, 2025 Resident Creating Document: DENIA PORTER RESIDENT Medical Necessity Reason Pt with a Central, PICC or Fol: No Subjective Review of Systems 59-year-old male with a complex past medical history including diabetes mellitus, hypertension, breakthrough seizures, prior sepsis, diabetic foot disease, status post right above-knee amputation, Achilles tendinopathy, peripheral arterial disease, ELVIS on CKD, hyperlipidemia, anemia, alcohol abuse (in remission), history of CVA, bipolar disorder, and schizophrenia, presents with altered level of consciousness. As per patient yesterday morning when he wake up tried to get out of the bed but he passed out and fell on the ground and hit his head. Also complained of mild chest pain, 5/10, intermittent, left- sided chest pain yesterday. Denied any fever shortness of breaths. The patient was recently discharged on September 25, 2025, at which time his diagnosis was metabolic encephalopathy secondary to sepsis, related to a non-healing left ankle wound. Patient also had exposure to TV patient, QuantiFERON gold test was negative. Patient was also seen by infectious disease on previous admission. ABG smear was negative x3, Pending AFB culture report. He now returns to the ED from home. History is limited as the patient is a poor historian. Per the ED team and family report, the patient lives at home and is cared for by his elderly mother and other family members. Family reports that during his prior admission he was treated for hyperglycemia and was discharged home with instructions not to take insulin, and as a result, he has not taken insulin for the past 23 days. When EMS arrived, the patients blood glucose was 566. The patient confirmed he had not taken insulin. In the ED, after receiving IV hydration, the patient became more alert. The patient has a remote history of alcohol use, having quit 15 years ago. No family members were present at the bedside during evaluation. Laboratory studies revealed hemoglobin 11.4 / hematocrit 34.9, platelet count 531, creatinine 1.55, glucose 471, lactic acid 1.2, AST 11, alkaline phosphatase 170, and beta-hydroxybutyrate 0.362, making DKA unlikely. CBC otherwise unremarkable with no leukocytosis. CT scan of the brain was unremarkable, and chest X-ray was unremarkable. PMH-diabetes mellitus, hypertension, breakthrough seizures, prior sepsis, diabetic foot disease, status post right above-knee amputation, Achilles tendinopathy, peripheral arterial disease, ELVIS on CKD, hyperlipidemia, anemia, alcohol abuse (in remission), history of CVA, bipolar disorder, and schizophrenia Surgical history: Right xkkez-[id number]-xhyp amputation Family history: Mother had heart disease Social history: Lives in [place] with family (next of kin is Kareem, cousin). Ex ethanol abuse (three bottles of Tequila per day for25 years) quit15 years ago. Denies current tobacco, alcohol and other drug abuse ROS Cardiovascular- chest pain Respiratory denies cough or short of breath or wheezing Gastrointestinal- denies any rectal bleeding, nausea or vomiting Musculoskeletal-denies acute joint swelling or tenderness or redness Neurological- denies acute dysarthria, dysphagia, change in vision Psychiatry- denies depression or SI or HI Skin- denies acute rash or purpura Patient was seen today at bedside Labs and chart reviewed CT head negative Ordered insulin Lantus Patient on insulin sliding scale We will continue current treatment Objective vital signs Vital Sign Date Time Temp Pulse Resp B/P (MAP) Pulse Ox O2 Delivery O2 Flow Rate FiO2 09/28/25 12:32 99.2 94 18 121/62 (81) 100 99.2 09/27/25 20:00 Nasal Cannula* 2 28 Total Intake and Output 09/27/25 09/27/25 09/28/25 15:00 23:00 07:00 Intake Total 1000 ml 600 ml Output Total 400 ml 1025 ml Balance 600 ml -425 ml medications Current Medications Medications Dose Ordered Sig/Niesha Route Start Time Stop Time Status Last Admin Dose Admin Apixaban 5 mg BID PO 09/27/25 22:00 09/28/25 10:59 5 MG Atorvastatin Calcium 30 mg HS PO 09/27/25 22:00 09/27/25 21:27 30 MG Pantoprazole Sodium 40 mg DAILY PO 09/28/25 10:00 09/28/25 10:59 40 MG Aspirin 81 mg DAILY PO 09/28/25 10:00 09/28/25 10:59 81 MG Folic Acid 1 mg DAILY PO 09/28/25 10:00 09/28/25 10:59 1 MG Sodium Chloride 1,000 ml @ 70 mls/hr [id number] IV 09/27/25 15:15 09/27/25 17:09 70 MLS/HR Ondansetron HCl 4 mg Q4HP PRN IV 09/27/25 15:15 Docusate Sodium 100 mg BIDPRN PRN PO 09/27/25 15:15 Nitroglycerin 0.4 mg Q5MINP PRN SL 09/27/25 15:15 Diagnostic Test (Pha) 1 strip ACHS 09/27/25 17:00 09/28/25 11:00 1 STRIP Insulin Human Regular ACHS SC 09/27/25 17:00 09/28/25 11:40 6 UNITS Dextrose 50 ml UD PRN IV 09/27/25 15:15 Quetiapine Fumarate 100 mg HS PO 09/28/25 22:00 Olanzapine 2.55 mg QPM PO 09/28/25 18:00 Fluoxetine HCl 40 mg QAM PO 09/29/25 07:00 Insulin Glargine 15 units QAM SC 09/28/25 12:15 09/28/25 12:44 15 UNITS Examination General examination- awake, alert HEENT- PEERLA, no acute nasal discharge Cardiovascular- S1-S2 audible, rate and rhythm regular, no murmur Respiratory- CTAB, no wheeze or rhonchi Gastrointestinal-nontender, bowel sound+. Nondistended Musculoskeletal-no acute joint swelling or tenderness or redness Lower extremity- right above-knee amputation, left Achilles tendon dry ulcer Neurological- cranial nerves intact, no acute dysarthria or dysphagia Psychiatry- denies depression or SI or HI Skin- no acute rash or purpura laboratory and microbiology Laboratory Tests 09/28/25 04:35 Test 09/28/25 04:35 Range/Units Serum Glucose 144 #H 74-106 mg/dL Problem List/Assessment/Plan Problem List/Assessment/Plan # suspected metabolic encephalopathy due to hyperglycemia -CT head negative -beta hydroxybutyric acid nonsignificant -continue insulin as prescribed # acute chest pain, rule out acute coronary syndrome # acute chest pain likely musculoskeletal -EKG no changes -troponin negative -echo 2D on 09/10/25 revealed LVEF 55% -continue aspirin and atorvastatin as prescribed -continue current conservative management #Type 2 diabetes mellitus with hyperglycemia -hemoglobin A1c on 08/29/2025> 14.0 -continue insulin as prescribed # 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 -avoid dehydration and nephrotoxic drugs #Thrombocytosis Monitor CBC #Anemia -monitor CBC #History of seizures -resume home medication #Bipolar disorder # schizophrenia -resumed home medication #Hypertension #Hyperlipidemia Peripheral arterial disease #History of CVA -continue aspirin and atorvastatin as prescribed -continue Eliquis 5 mg p.o. b.i.d. #med non adherence -counseled about the importance of med adherence #Right above-knee amputation #History of diabetic foot disease and right above-knee amputation -continue current conservative manage Goals of care, Code status ; discussed with >15 minutes PUD prophylaxis: Pantoprazole DVT prophylaxis: Liquid Plan discussed with Dr. Mckee, nursing staff, Total time spent on patient evaluation, chart review, assessment and plan, discussion discussion >35 minutes Plan discussed with: Patient, Other (RN) My Orders My Orders Orders - DENIA PORTER Procedure Category Date Status Time Osmolality Urine LAB 09/28/25 Logged 10:14 Vitamin B12 LAB 09/28/25 In Process 10:14 Vitamin D, 25-Hydroxy LAB 09/28/25 In Process 10:14 Folate (Folic Acid) LAB 09/28/25 In Process 10:14 Drug Screen LAB 09/28/25 Logged 10:14 Quetiapine Fumarate PHA 09/28/25 In Process Tablet (Seroquel Tab 22:00 Olanzapine Tablet PHA 09/28/25 In Process (Zyprexa Tablet) 18:00 Fluoxetine Capsule PHA 09/29/25 In Process (Prozac Capsule) 07:00 Orthostatic Vital ORDERS 09/28/25 Transmitted Signs 12:12 Insulin Lantus PHA 09/28/25 In Process (Glargine) (Lantus) 12:15 Visit Coding STANDARD RES Billing Provider: RODNEY MCKEE MD Date of Service if different f: Sep 28, 2025 Common Visit Codes: [id number] INP/OBS CARE(HIGH) DENIA PORTER Sep 28, 2025 12:59
[2025-09-28 14:27] LABS: Benzodiazephine Screen, Urine Neg (NEGATIVE); Opiate Scree,Urine Neg (NEGATIVE)
[2025-09-28 14:39] LABS: Amphetamine Screen, Urine Neg (NEGATIVE); Barbiturate Scree,Urine Neg (NEGATIVE); Cannabinoid Screen, Urine Neg (NEGATIVE); Cocaine Screen, Urine Neg (NEGATIVE); Phencyclidine Screen, Urine Neg (NEGATIVE)
[2025-09-28] MEDS: OLANZapine 5 MG TAB PO SCH (16:52)
[2025-09-29] VITALS (8 sets, daily range): BP systolic 0–146; BP diastolic 52–80; PULSE 84–111; RESP 17–20; TEMP 98.1–98.6; O2SAT 19–100
[2025-09-29 07:23] LABS: Anion Gap 10 (5-15); Carbon Dioxide 23 mmol/L (20-31); Potassium 4.2 mmol/L (3.5-5.1); Sodium 142 mmol/L (136-145)
[2025-09-29 07:29] LABS: BUN/Creatinine Ratio 12.2 (10.0-20.0); Blood Urea Nitrogen 17 mg/dL (9-23)
[2025-09-29 07:30] LABS: Hematocrit 29.3 % (41.0-53.0); Hemoglobin 10.0 g/dL (13.5-17.5); Magnesium 1.8 mg/dL (1.6-2.6); Mean Corpuscular Hemoglobin 30.4 pg (28.0-32.0); Mean Corpuscular Volume 89.3 fL (80.0-100.0); Nucleated Red Blood Cells % 0.0 %
[2025-09-29 07:33] LABS: Calcium 8.4 mg/dL (8.7-10.4); Chloride 109 mmol/L (98-107); Glucose 205 mg/dL (74-106)
--- NOTE | 2025-09-29 09:17 | DVH ---
EXAM: CT CT AB PEL WO CON-NO ORAL OR IV HISTORY: acute abd pain COMPARISON STUDY: CT CT AB PEL WO CON-NO ORAL OR IV on DOS: 09/15/25, US ABDOMEN LIMITED on DOS: 09/09/25, CT CT AB PEL WITH IV CON ONLY on DOS: 09/02/25, CT CT AB PEL WITH IV CON ONLY on DOS: 08/06/25, XY KUB ABDOMEN SINGLE VIEW on DOS: 04/08/25 TECHNIQUE: Multidetector CT of the abdomen and pelvis was performed from lung bases to pubic symphysis. Imaging was performed without IV contrast. Axial, coronal, and sagittal multiplanar reformats were obtained from the axial data set by the technologist. RADIATION DOSE: CTDI vol 11.08 mGy. DLP 613.65 mGy.cm FINDINGS: Limited evaluation of the solid organs in the absence of IV contrast. Lungs: The lung bases are clear. Liver: Unremarkable. Spleen: Unremarkable. Pancreas: Unremarkable. Gallbladder: Unremarkable. Adrenals: Unremarkable Kidneys: Unremarkable. Pelvic Viscera: Mild wall thickening about the urinary bladder. Vasculature: Atherosclerotic aortoiliac calcification. Retroperitoneum: Unremarkable. Bowel: No bowel obstruction. The appendix is normal. Musculoskeletal: Unremarkable. Soft tissues: Unremarkable IMPRESSION: 1. Mild wall thickening about the urinary bladder, cystitis cannot be excluded in the appropriate clinical setting. 2. Additional incidental findings as detailed.
[2025-09-29] MEDS: MAGNESIUM SULFATE 1GM/100ML 100 ML IV SCH (10:11)
[2025-09-29] MEDS ORDERED: INSLANTI SC (13:46)
--- NOTE | 2025-09-29 17:23 | DVHPNRES ---
Progress Note Date Seen: Sep 29, 2025 Resident Creating Document: MIGUELINA HERNANDEZ RESIDENT Medical Necessity Reason Pt with a Central, PICC or Fol: No Subjective Review of Systems 59-year-old male with a complex past medical history including diabetes mellitus, hypertension, breakthrough seizures, prior sepsis, diabetic foot disease, status post right above-knee amputation, Achilles tendinopathy, peripheral arterial disease, ELVIS on CKD, hyperlipidemia, anemia, alcohol abuse (in remission), history of CVA, bipolar disorder, and schizophrenia, presents with altered level of consciousness. As per patient yesterday morning when he wake up tried to get out of the bed but he passed out and fell on the ground and hit his head. Also complained of mild chest pain, 5/10, intermittent, left- sided chest pain yesterday. Denied any fever shortness of breaths. The patient was recently discharged on September 25, 2025, at which time his diagnosis was metabolic encephalopathy secondary to sepsis, related to a non-healing left ankle wound. Patient also had exposure to TV patient, QuantiFERON gold test was negative. Patient was also seen by infectious disease on previous admission. ABG smear was negative x3, Pending AFB culture report. He now returns to the ED from home. History is limited as the patient is a poor historian. Per the ED team and family report, the patient lives at home and is cared for by his elderly mother and other family members. Family reports that during his prior admission he was treated for hyperglycemia and was discharged home with instructions not to take insulin, and as a result, he has not taken insulin for the past 23 days. When EMS arrived, the patients blood glucose was 566. The patient confirmed he had not taken insulin. In the ED, after receiving IV hydration, the patient became more alert. The patient has a remote history of alcohol use, having quit 15 years ago. No family members were present at the bedside during evaluation. Laboratory studies revealed hemoglobin 11.4 / hematocrit 34.9, platelet count 531, creatinine 1.55, glucose 471, lactic acid 1.2, AST 11, alkaline phosphatase 170, and beta-hydroxybutyrate 0.362, making DKA unlikely. CBC otherwise unremarkable with no leukocytosis. CT scan of the brain was unremarkable, and chest X-ray was unremarkable. PMH-diabetes mellitus, hypertension, breakthrough seizures, prior sepsis, diabetic foot disease, status post right above-knee amputation, Achilles tendinopathy, peripheral arterial disease, ELVIS on CKD, hyperlipidemia, anemia, alcohol abuse (in remission), history of CVA, bipolar disorder, and schizophrenia Surgical history: Right rmbqt-xle-revp amputation Family history: Mother had heart disease Social history: Lives in [place] with family (next of kin is Kareem, cousin). Ex ethanol abuse (three bottles of Tequila per day for25 years) quit15 years ago. Denies current tobacco, alcohol and other drug abuse Objective vital signs Vital Sign Date Time Temp Pulse Resp B/P (MAP) Pulse Ox O2 Delivery O2 Flow Rate FiO2 09/29/25 12:55 98.4 91 17 139/75 (96) 98 98.4 09/29/25 08:00 Room Air* 0 21 Total Intake and Output 09/28/25 09/28/25 09/29/25 15:00 23:00 07:00 Intake Total 940 ml 250 ml Output Total 1100 ml 950 ml Balance -160 ml -700 ml medications Current Medications Medications Dose Ordered Sig/Niesha Route Start Time Stop Time Status Last Admin Dose Admin Apixaban 5 mg BID PO 09/27/25 22:00 09/29/25 10:11 5 MG Atorvastatin Calcium 30 mg HS PO 09/27/25 22:00 09/28/25 21:42 30 MG Pantoprazole Sodium 40 mg DAILY PO 09/28/25 10:00 09/29/25 10:11 40 MG Aspirin 81 mg DAILY PO 09/28/25 10:00 09/29/25 10:11 81 MG Folic Acid 1 mg DAILY PO 09/28/25 10:00 09/29/25 10:11 1 MG Sodium Chloride 1,000 ml @ 70 mls/hr [id number] IV 09/27/25 15:15 09/28/25 21:42 70 MLS/HR Ondansetron HCl 4 mg Q4HP PRN IV 09/27/25 15:15 Docusate Sodium 100 mg BIDPRN PRN PO 09/27/25 15:15 Nitroglycerin 0.4 mg Q5MINP PRN SL 09/27/25 15:15 Diagnostic Test (Pha) 1 strip ACHS 09/27/25 17:00 09/29/25 11:45 1 STRIP Insulin Human Regular ACHS SC 09/27/25 17:00 09/29/25 12:24 4 UNITS Dextrose 50 ml UD PRN IV 09/27/25 15:15 Quetiapine Fumarate 100 mg HS PO 09/28/25 22:00 09/28/25 21:42 100 MG Olanzapine 2.55 mg QPM PO 09/28/25 18:00 09/28/25 16:52 2.55 MG Fluoxetine HCl 40 mg QAM PO 09/29/25 07:00 09/29/25 05:59 40 MG Insulin Glargine 15 units QAM SC 09/28/25 12:15 09/29/25 06:05 15 UNITS Examination General examination- awake, alert HEENT- PEERLA, no acute nasal discharge Cardiovascular- S1-S2 audible, rate and rhythm regular, no murmur Respiratory- CTAB, no wheeze or rhonchi Gastrointestinal-nontender, bowel sound+. Nondistended Musculoskeletal-no acute joint swelling or tenderness or redness Lower extremity- right above-knee amputation, left Achilles tendon dry ulcer Neurological- cranial nerves intact, no acute dysarthria or dysphagia Psychiatry- denies depression or SI or HI Skin- no acute rash or purpura laboratory and microbiology Laboratory Tests 09/29/25 06:34 Test 09/29/25 06:34 Range/Units Serum Glucose 205 H 74-106 mg/dL Labs and/or images reviewed: Labs reviewed by me, Image(s) reviewed by me Problem List/Assessment/Plan Problem List/Assessment/Plan # suspected metabolic encephalopathy due to hyperglycemia -CT head negative -beta hydroxybutyric acid nonsignificant -continue insulin as prescribed # acute chest pain, rule out acute coronary syndrome # acute chest pain likely musculoskeletal -EKG no changes -troponin negative -echo 2D on 09/10/25 revealed LVEF 55% -continue aspirin and atorvastatin as prescribed -continue current conservative management #Type 2 diabetes mellitus with hyperglycemia -hemoglobin A1c on 08/29/2025> 14.0 -continue insulin as prescribed # 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 -avoid dehydration and nephrotoxic drugs #Thrombocytosis Monitor CBC #Anemia -monitor CBC #History of seizures -resume home medication #Bipolar disorder # schizophrenia -resumed home medication #Hypertension #Hyperlipidemia Peripheral arterial disease #History of CVA -continue aspirin and atorvastatin as prescribed -continue Eliquis 5 mg p.o. b.i.d. #med non adherence -counseled about the importance of med adherence #Right above-knee amputation #History of diabetic foot disease and right above-knee amputation -continue current conservative manage Goals of care, Code status ; discussed with >15 minutes PUD prophylaxis: Pantoprazole DVT prophylaxis: Liquid Plan discussed with Dr. Mckee, nursing staff, Total time spent on patient evaluation, chart review, assessment and plan, discussion discussion >35 minutes Plan discussed with: Patient, Other (RN) Plan discussed with: Patient, Other (RN) Dietary Evaluation Review Comments: CCHOo-60 Cardiac diet with J Carlos BID for wound healing Expected Outcomes/Goals: healed wounds, gradual wt loss MIGUELINA HERNANDEZ RESIDENT Sep 29, 2025 17:23
--- NOTE | 2025-09-29 17:46 | DVHDSRES ---
Discharge Summary Date of Admission Resident Creating Document: MIGUELINA HERNANDEZ Sep 27, 2025 at 15:09 Date of Discharge: Sep 29, 2025 Labs/Diagnostic Data: Laboratory Results Test 09/29/25 06:34 09/29/25 05:50 09/28/25 11:24 09/28/25 04:35 White Blood Count 4.7 10^3/uL (4.4-10.8) Red Blood Count 3.28 10^6/uL (4.5-5.90) Hemoglobin 10.0 g/dL (13.5-17.5) Hematocrit 29.3 % (41.0-53.0) Mean Corpuscular Volume 89.3 fL (80.0-100.0) Mean Corpuscular Hemoglobin 30.4 pg (28.0-32.0) Mean Corpuscular Hemoglobin Concent 34.1 g/dL (32.0-36.0) Red Cell Distribution Width 16.1 % (11.8-14.3) Platelet Count 485 10^3/uL (140-450) Mean Platelet Volume 7.3 fL (6.9-10.8) Neutrophils (%) (Auto) 57.6 % (37.0-80.0) Lymphocytes (%) (Auto) 28.2 % (10.0-50.0) Monocytes (%) (Auto) 7.0 % (0.0-12.0) Eosinophils (%) (Auto) 5.9 % (0.0-7.0) Basophils (%) (Auto) 1.3 % (0.0-2.0) Neutrophils # (Auto) 2.7 10 ^3/uL (1.6-8.6) Lymphocytes # (Auto) 1.3 10 ^3/uL (0.4-5.4) Monocytes # (Auto) 0.3 10 ^3/uL (0-1.3) Eosinophils # (Auto) 0.3 10 ^3/uL (0-0.8) Basophils # (Auto) 0.1 10 ^3/uL (0-0.2) Nucleated Red Blood Cells 0.0 % Sodium Level 142 mmol/L (136-145) Potassium Level 4.2 mmol/L (3.5-5.1) Chloride Level 109 mmol/L (98-107) Carbon Dioxide Level 23 mmol/L (20-31) Anion Gap 10 (5-15) Blood Urea Nitrogen 17 mg/dL (9-23) Creatinine 1.39 mg/dL (0.700-1.30) Glomerular Filtration Rate Calc 58 mL/min (>90) BUN/Creatinine Ratio 12.2 (10.0-20.0) Serum Glucose 205 mg/dL (74-106) Calcium Level 8.4 mg/dL (8.7-10.4) Magnesium Level 1.8 mg/dL (1.6-2.6) POC Glucose 195 mg/dl (70-106) Ammonia 20 umol/L (11-32) Creatine Kinase 53 U/L (46-171) Plasma/Serum Blood Alcohol < 3.0 mg/dL (<10) Serum Osmolality 307 mOsm/kg (278-298) Total Bilirubin 0.2 mg/dL (0.2-1.0) Aspartate Amino Transferase (AST) 11 U/L (13-40) Alanine Aminotransferase (ALT) 19 U/L (7-40) Alkaline Phosphatase 93 U/L (46-116) Total Protein 6.0 g/dL (5.7-8.2) Albumin 3.5 g/dL (3.2-4.8) Vitamin B12 Level 1047 pg/mL (211-911) Vitamin D 25-Hydroxy 35.6 ng/mL (30.0-100) Folic Acid 30.00 ng/mL (>5.38) Test 09/27/25 16:55 09/27/25 13:52 09/27/25 13:02 09/27/25 12:48 Troponin I High Sensitivity 3 ng/L (</=54) Beta-Hydroxybutyric Acid 0.415 mmol/L (< 0.4) Lactic Acid Level 1.2 mmol/L (0.4-2.0) Urine Color Colorless (Yellow) Urine Clarity Clear (Clear) Urine pH 6.5 (5.0-9.0) Urine Specific [place] 1.015 (1.001-1.035) Urine Protein 1+ (Negative) Urine Ketones Negative (Negative) Urine Blood Negative /uL (Negative) Urine Nitrite Negative (Negative) Urine Bilirubin Negative (Negative) Urine Urobilinogen Normal mg/dL (Negative) Urine Leukocyte Esterase Negative /uL (Negative) Urine RBC None seen /hpf (0 - 3) Urine Microscopic WBC 2 /HPF (0-3) Urine Squamous Epithelial Cells Few /hpf (<5) Urine Bacteria None seen /hpf (None Seen) Urine Yeast (Budding) Occasional /hpf (None Urine Osmolality 430 mOsm/kg Urine Glucose 4+ mg/dL (Normal) Urine Opiates Screen Neg (NEGATIVE) Urine Fentanyl Screen Neg (NEGATIVE) Urine Barbiturates Screen Neg (NEGATIVE) Urine Phencyclidine Screen Neg (NEGATIVE) Urine Amphetamines Screen Neg (NEGATIVE) Urine Benzodiazepines Screen Neg (NEGATIVE) Urine Cocaine Screen Neg (NEGATIVE) Urine Cannabinoids Screen Neg (NEGATIVE) Other Laboratory Tests 09/29/25 06:34 Brief Hx & Hospital Course: 59-year-old male with a complex past medical history including diabetes mellitus, hypertension, breakthrough seizures, prior sepsis, diabetic foot disease, status post right above-knee amputation, Achilles tendinopathy, peripheral arterial disease, ELVIS on CKD, hyperlipidemia, anemia, alcohol abuse (in remission), history of CVA, bipolar disorder, and schizophrenia, presents with altered level of consciousness. As per patient yesterday morning when he wake up tried to get out of the bed but he passed out and fell on the ground and hit his head. Also complained of mild chest pain, 5/10, intermittent, left- sided chest pain yesterday. Denied any fever shortness of breaths. The patient was recently discharged on September 25, 2025, at which time his diagnosis was metabolic encephalopathy secondary to sepsis, related to a non-healing left ankle wound. Patient also had exposure to TV patient, QuantiFERON gold test was negative. Patient was also seen by infectious disease on previous admission. ABG smear was negative x3, Pending AFB culture report. He now returns to the ED from home. History is limited as the patient is a poor historian. Per the ED team and family report, the patient lives at home and is cared for by his elderly mother and other family members. Family reports that during his prior admission he was treated for hyperglycemia and was discharged home with instructions not to take insulin, and as a result, he has not taken insulin for the past 23 days. When EMS arrived, the patients blood glucose was 566. The patient confirmed he had not taken insulin. In the ED, after receiving IV hydration, the patient became more alert. The patient has a remote history of alcohol use, having quit 15 years ago. No family members were present at the bedside during evaluation. Laboratory studies revealed hemoglobin 11.4 / hematocrit 34.9, platelet count 531, creatinine 1.55, glucose 471, lactic acid 1.2, AST 11, alkaline phosphatase 170, and beta-hydroxybutyrate 0.362, making DKA unlikely. CBC otherwise unremarkable with no leukocytosis. CT scan of the brain was unremarkable, and chest X-ray was unremarkable. PMH-diabetes mellitus, hypertension, breakthrough seizures, prior sepsis, diabetic foot disease, status post right above-knee amputation, Achilles tendinopathy, peripheral arterial disease, ELVIS on CKD, hyperlipidemia, anemia, alcohol abuse (in remission), history of CVA, bipolar disorder, and schizophrenia Surgical history: Right zdpyt-dmi-gwrw amputation Family history: Mother had heart disease Social history: Lives in [place] with family (next of kin is Kareem, cousin). Ex ethanol abuse (three bottles of Tequila per day for25 years) quit15 years ago. Denies current tobacco, alcohol and other drug abuse Brief hospital course: Further evaluation patient was diagnosed with suspected metabolic encephalopathy due to hyperglycemia. Head CT was negative and beta hydroxybutyric acid was nonsignificant. The patient was treated with insulin. Is complaint of chest pain was evaluated for ACS, EKG and troponin was negative for ischemia. Chest pain was likely due to costochondritis. Echo 2D on 09/10/2025 revealed LV ejection fraction 55%. During the hospital course his aspirin, atorvastatin was continued. Patient has type 2 diabetes mellitus with hyperglycemia was managed with insulin Lantus and insulin sliding scale. His hemoglobin A1c was noted to be above 14. Patient's 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 was managed conservatively. His bipolar disorder patient for any was managed with resuming home medications. Patient was counseled on importance of medication compliance. On the day of discharge patient was hemodynamically stable, verbalized understanding of the treatment and discharge plan. The patient was advised to follow up outpatient with DC clinic and PCP and radio interference expert. Operations or Procedures PATIENT: LISA BENITES ACCT: [id number] UNIT: [id number] : 1965 LOC: [facility] ROOM / BED: [facility] / A AGE / SEX: 59 / M ADM STATUS: ADM IN SERVICE 0700 ORDERING PHYSICIAN: DALILA PATTERSON DNP PROCEDURE(s): ABPL - CT AB PEL WO CON-NO ORAL OR IV REASON: acute abd pain ORDER NUMBER(s): [id number], ACCESSION NUMBER(s): [id number] EXAM: CT CT AB PEL WO CON-NO ORAL OR IV HISTORY: acute abd pain COMPARISON STUDY: CT CT AB PEL WO CON-NO ORAL OR IV on DOS: 09/15/25, US ABDOMEN LIMITED on DOS: 09/09/25, CT CT AB PEL WITH IV CON ONLY on DOS: 09/02/25, CT CT AB PEL WITH IV CON ONLY on DOS: 08/06/25, XY KUB ABDOMEN SINGLE VIEW on DOS: 04/08/25 TECHNIQUE: Multidetector CT of the abdomen and pelvis was performed from lung bases to pubic symphysis. Imaging was performed without IV contrast. Axial, coronal, and sagittal multiplanar reformats were obtained from the axial data set by the technologist. RADIATION DOSE: CTDI vol 11.08 mGy. DLP 613.65 mGy.cm FINDINGS: Limited evaluation of the solid organs in the absence of IV contrast. Lungs: The lung bases are clear. Liver: Unremarkable. Spleen: Unremarkable. Pancreas: Unremarkable. Gallbladder: Unremarkable. Adrenals: Unremarkable Kidneys: Unremarkable. Pelvic Viscera: Mild wall thickening about the urinary bladder. Vasculature: Atherosclerotic aortoiliac calcification. Retroperitoneum: Unremarkable. Bowel: No bowel obstruction. The appendix is normal. Musculoskeletal: Unremarkable. Soft tissues: Unremarkable IMPRESSION: 1. Mild wall thickening about the urinary bladder, cystitis cannot be excluded in the appropriate clinical setting. PATIENT: LISA BENITES ACCT: [id number] UNIT: [id number] : 1965 LOC: ER ROOM / BED: / AGE / SEX: 59 / M ADM STATUS: REG ER SERVICE 1217 ORDERING PHYSICIAN: SALINAS KWAN DO PROCEDURE(s): HWOCT - HEAD WITHOUT CONTRAST REASON: aloc ORDER NUMBER(s): [id number], ACCESSION NUMBER(s): [id number] PROCEDURE: CT HEAD WITHOUT CONTRAST Study Date and Requested Time: 09/27/2025 12:33 PM History: aloc COMPARISON: CT HEAD WITHOUT CONTRAST on DOS: 09/15/25, CT HEAD WITHOUT CONTRAST on DOS: 03/30/25, CT HEAD WITHOUT CONTRAST on DOS: 03/15/25 Dose: CTDI: 50.21 mGy DLP: 1502.29 mGycm TECHNIQUE: Multiplanar images obtained through the brain without intravenous contrast. FINDINGS: Study is slightly limited by Motion artifact. [id number] Diffuse brain atrophy. No hemorrhages, masses, mass effect, midline shift, herniation or cytotoxic edema following a large vascular territory. No intra-axial or extra-axial fluid collections. No evidence of hydrocephalus. The basal cisterns are patent. The pituitary gland, sella and parasellar regions are unremarkable. The cerebellar tonsils are in normal position. The cerebellum is unremarkable. The orbits and globes are unremarkable. Mild mucoperiosteal thickening of the ethmoid air cells. Otherwise, the paranasal sinuses and mastoids are clear. There are no worrisome calvarial lesions. IMPRESSION: Study slightly limited by motion artifact. Otherwise, No evidence of acute intracranial abnormality. ENT: LISA BENITES ACCT: [id number] UNIT: [id number] : 1965 LOC: ER ROOM / BED: / AGE / SEX: 59 / M ADM STATUS: REG ER SERVICE ORDERING PHYSICIAN: SALINAS KWAN DO PROCEDURE(s): CXRP - CHEST PORTABLE REASON: aloc ORDER NUMBER(s): [id number], ACCESSION NUMBER(s): [id number] CHEST RADIOGRAPH INDICATION: aloc TECHNIQUE: Single frontal view of the chest was obtained COMPARISON: XY CHEST XRAY 1 VIEW on DOS: 09/16/25, XY CHEST PORTABLE on DOS: 09/09/25, XY CHEST XRAY 1 VIEW on DOS: 08/06/25 FINDINGS: Lines and Tubes: None Lungs: No focal consolidation. Pleura: No effusion. No pneumothorax. Cardiomediastinal contours: Borderline cardiomegaly Bones: No acute osseous abnormality. IMPRESSION: No acute cardiopulmonary disease. 2. Additional incidental findings as detailed. Condition at Discharge: Stable Final Diagnosis/Problems List # Acute Toxic/Metabolic encephalopathy due to hyperglycemia # Acute chest pain, ruled out acute coronary syndrome # Acute chest pain likely musculoskeletal, Costochondritis # Uncontrolled Type 2 diabetes mellitus with hyperglycemia # 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 # Thrombocytosis Monitor CBC # Anemia # History of seizures # Bipolar disorder # schizophrenia # Hypertension # Hyperlipidemia # Peripheral arterial disease # History of CVA # med non adherence # Right above-knee amputation # History of diabetic foot disease and right above-knee amputation # 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 Discharge Disposition: Home Discharge Instruct/Medications Diet: Consistent carbohydrate, Cardiac 2g Na,low cholest Activity: No Restrictions, As Tolerated Follow Up/Referral: PCP, discharge Clinic, podiatry Medications: Lantus 10 units 2 times daily Resume home medications Follow healthy lifestyle modifications including diet and exercise Scheduled Apixaban Base (Eliquis), 1 TAB PO BID, (Reported) Aspirin (Aspirin Low Dose), 1 TAB PO DAILY, (Reported) Atorvastatin Calcium (Atorvastatin Calcium), 1.5 TAB PO DAILY, (Reported) Cefdinir (Cefdinir), 1 CAP PO BID Ertugliflozin l-Pyroglutamic A (Steglatro), 1 TAB PO DAILY IN AM, (Reported) Fluoxetine HCl (Fluoxetine HCl), 2 CAP PO QAM, (Reported) Folic Acid (Folic Acid), 1 TAB PO DAILY, (Reported) Gabapentin (Gabapentin), 1 CAP PO TID, (Reported) Insulin Glargine (Lantus), 10 UNITS SC BID Olanzapine (Olanzapine), 1 TAB PO QPM, (Reported) Pantoprazole Sodium Sesquihydr (Pantoprazole Sodium), 40 MG PO DAILY Pantoprazole Sodium Sesquihydr (Pantoprazole Sodium), 40 MG PO DAILY Quetiapine Fumerate (Quetiapine Fumarate), 1 TAB PO HS, (Reported) Temazepam (Temazepam), 1 CAP PO HS, (Reported) Scheduled PRN Baclofen (Baclofen), 1 TAB PO BIDP PRN for FOR MUSCLE SPASM, (Reported) Hydrocodone-Acetaminophen (Hydrocodone Bitartrate/AC 10-325 mg), 1 TAB PO Q8HPRN PRN for PAIN SCALE 7 THRU 10, (Reported) Hydroxyzine HCl (Hydroxyzine Hydrochloride), 1 TAB PO TIDP PRN for ANXIETY, (Reported) Discontinued Medications Amlodipine Besylate (Amlodipine Besylate), 1 TAB PO DAILY, (Reported) Insulin Aspart (Novolog Flexpen Relion), 1-10 UNIT SC TIDWM PRN Insulin Glargine (Lantus Solostar), 15 UNIT SC BID Insulin Lispro (Humalog Kwikpen), 5 UNIT SC AC Losartan Potassium (Losartan Potassium), 1 TAB PO DAILY@BREAKFAST, (Reported) Metoprolol Tartrate (Lopressor Tablet), 1 TAB PO BID, (Reported) Discharge Statement: "Patient was advised to return to the ER or call 911 if any headaches, dizziness, shortness of breath, chest pain, abdominal pain, bleeding, fevers, or worsening of medical condition. Patient was counseled about treatment plan, medications, possible side effects, patientverbalized understanding. All questions were answered to the best of my ability. This discharge took greater then 30 minutes in planning, reviewing documentation, counseling the patient, and discussing with other team members." ASSESSMENT ASSESSMENT Assessment # Acute Toxic/Metabolic encephalopathy due to hyperglycemia # Acute chest pain, ruled out acute coronary syndrome # Acute chest pain likely musculoskeletal, Costochondritis # Uncontrolled Type 2 diabetes mellitus with hyperglycemia # 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 # Thrombocytosis Monitor CBC # Anemia # History of seizures # Bipolar disorder # schizophrenia # Hypertension # Hyperlipidemia # Peripheral arterial disease # History of CVA # med non adherence # Right above-knee amputation # History of diabetic foot disease and right above-knee amputation # 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
[2025-09-30 01:00] VITALS: BP 93/60; PULSE 100; RESP 19; TEMP 98.1; O2SAT 98
[2025-09-30 05:00] VITALS: BP 114/70; PULSE 99; RESP 18; TEMP 98.4; O2SAT 95
[2025-09-30 07:40] VITALS: PULSE 95; RESP 18; O2SAT 96
[2025-09-30 08:49] VITALS: BP 120/96; PULSE 95; RESP 18; TEMP 98; O2SAT 96
--- NOTE | 2025-09-30 17:22 | DVHPNRES ---
Progress Note Date Seen: Sep 30, 2025 Resident Creating Document: MIGUELINA HERNANDEZ RESIDENT Medical Necessity Reason Pt with a Central, PICC or Fol: No Subjective Review of Systems Aaron Del Angel, was seen and examined at bedside today. The patient reports feeling better. He denies any chest pain, shortness of breath, abdominal pain, urinary symptoms or any other complaints today. He was waiting for transportation to home. He was thankful for the care. Objective vital signs Vital Sign Date Time Temp Pulse Resp B/P (MAP) Pulse Ox O2 Delivery O2 Flow Rate FiO2 09/30/25 08:49 98.0 95 18 120/96 (104) 96 98.0 09/30/25 07:40 Room Air* 0 21 Total Intake and Output 09/29/25 09/29/25 09/30/25 15:00 23:00 07:00 Intake Total 200 ml 476 ml 700 ml Output Total 1250 ml 900 ml Balance 200 ml -774 ml -200 ml Examination General examination- awake, alert HEENT- PEERLA, no acute nasal discharge Cardiovascular- S1-S2 audible, rate and rhythm regular, no murmur Respiratory- CTAB, no wheeze or rhonchi Gastrointestinal-nontender, bowel sound+. Nondistended Musculoskeletal-no acute joint swelling or tenderness or redness Lower extremity- right above-knee amputation, left Achilles tendon dry ulcer Neurological- cranial nerves intact, no acute dysarthria or dysphagia Psychiatry- denies depression or SI or HI Skin- no acute rash or purpura laboratory and microbiology Laboratory Tests 09/29/25 06:34 Test 09/29/25 06:34 Range/Units Serum Glucose 205 H 74-106 mg/dL Labs and/or images reviewed: Labs reviewed by me, Image(s) reviewed by me Problem List/Assessment/Plan Problem List/Assessment/Plan # suspected metabolic encephalopathy due to hyperglycemia -CT head negative -beta hydroxybutyric acid nonsignificant -continue insulin as prescribed # acute chest pain, rule out acute coronary syndrome # acute chest pain likely musculoskeletal -EKG no changes -troponin negative -echo 2D on 09/10/25 revealed LVEF 55% -continue aspirin and atorvastatin as prescribed -continue current conservative management #Type 2 diabetes mellitus with hyperglycemia -hemoglobin A1c on 08/29/2025> 14.0 -continue insulin as prescribed # 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 -avoid dehydration and nephrotoxic drugs #Thrombocytosis Monitor CBC #Anemia -monitor CBC #History of seizures -resume home medication #Bipolar disorder # schizophrenia -resumed home medication #Hypertension #Hyperlipidemia Peripheral arterial disease #History of CVA -continue aspirin and atorvastatin as prescribed -continue Eliquis 5 mg p.o. b.i.d. #med non adherence -counseled about the importance of med adherence #Right above-knee amputation #History of diabetic foot disease and right above-knee amputation -continue current conservative manage Goals of care, Code status ; discussed with >15 minutes PUD prophylaxis: Pantoprazole DVT prophylaxis: Consistent carbohydrate The patient was already discharged yesterday, was waiting for transportation. Was stable in condition. Plan discussed with Dr. Diaz, nursing staff, Total time spent on patient evaluation, chart review, assessment and plan, discussion discussion >35 minutes Plan discussed with: Patient, Other (RN) Plan discussed with: Patient, Other (RN) My Orders My Orders Orders - MIGUELINA HERNANDEZ RESIDENT Procedure Category Date Status Time * Manufacturing Test Engineer CONS 09/30/25 Transmitted Consult Dietary Evaluation Review Comments: [id number] Cardiac diet with J Carlos BID for wound healing Expected Outcomes/Goals: healed wounds, gradual wt loss Visit Coding STANDARD RES Billing Provider: RODNEY DIAZ MD Date of Service if different f: Sep 30, 2025 Common Visit Codes: [id number] INP/OBS CARE(HIGH) MIGUELINA HERNANDEZ Sep 30, 2025 17:22 RODNEY DIAZ MD Sep 30, 2025 18:41
== END 2025-09-30 10:15 | disposition home or self-care (01) | DRG 420 ==
LOC: ER 12:08 → EDBD 12:08 → EDUNIT# 12:08 → OVERFLOW 15:09 → EAST 17:56 → WEST WING 09-28 17:58
PROVIDERS: ADMIT Internal Medicine Geriatric Medicine; ATTEND Internal Medicine Geriatric Medicine
DX: E11.65 Type 2 diabetes mellitus with hyperglycemia (principal); N17.0 Acute kidney failure with tubular necrosis; G92.8 Other toxic encephalopathy; D75.839 Thrombocytosis, unspecified; E11.22 Type 2 diabetes mellitus with diabetic chronic kidney disease; E11.51 Type 2 diabetes mellitus with diabetic peripheral angiopathy without gangrene; E78.5 Hyperlipidemia, unspecified; F31.9 Bipolar disorder, unspecified; N18.9 Chronic kidney disease, unspecified; F10.11 Alcohol abuse, in remission; I12.9 Hypertensive chronic kidney disease with stage 1 through stage 4 chronic kidney disease, or unspecified chronic kidney disease; G40.909 Epilepsy, unspecified, not intractable, without status epilepticus; M94.0 Chondrocostal junction syndrome [Tietze]; G89.29 Other chronic pain; F20.9 Schizophrenia, unspecified; Z89.611 Acquired absence of right leg above knee; Z86.73 Personal history of transient ischemic attack (TIA), and cerebral infarction without residual deficits; Z91.148 Patient's other noncompliance with medication regimen for other reason; Z91.0120 Allergy to eggs, unspecified; Z79.899 Other long term (current) drug therapy; Y90.9 Presence of alcohol in blood, level not specified; Z79.82 Long term (current) use of aspirin
CPT/HCPCS: 36415; 70450; 71045; 74176; 80048; 80053; 80307; 80320; 81001; 82010; 82140; 82306; 82550; 82607; 82746; 82962; 83605; 83735; 83930; 83935; 84484; 85025; 93005; 97163; G0378; J1815

== ENCOUNTER 2025-10-03 13:00 | Inpatient (IN) | payer MEDICAID ==
[~2025-10-03] VITALS: Ht 165.1 cm; Wt 64.2 kg
[~2025-10-03 13:00] MED LIST changes: +INSLANTI SC
[2025-10-03 13:32] VITALS: PULSE 96; RESP 13; O2SAT 99
[2025-10-03 13:42] LABS: Urine Protein, UAD 1+ (Negative)
--- NOTE | 2025-10-03 14:08 | ED.PDOC ---
History of Present Illness HPI Comments This is a 59-year-old male with past medical history of insulin-dependent diabetes mellitus, right above the knee amputation, CKD, hypertension, hyperlipidemia,PAD, seizure disorder, bipolar disorder, schizophrenia who presented to the ED via EMS after blood glucose level at home was recorded at 600 this morning after breakfast. Accu-Chek done by EMS showed blood glucose level>500. He denies any nausea, vomiting, abdominal pain or urinary symptoms. Chief Complaint: Hyperglycemia Time Seen by MD: 13:50 Allergies: Coded Allergies: Egg Solids, Whole (Verified Allergy, Intermediate, VOMITING, 08/08/25) Home Meds Active Scripts Insulin Glargine (Lantus) 100 Unit/Ml Inj, 10 UNITS SC BID for 30 Days, #3 INJ Prov:PEDRO CARLTON RESIDENT 09/29/25 Pantoprazole Sodium Sesquihydr (Pantoprazole Sodium) 40 Mg Tab, 40 MG PO DAILY for 7 Days, #7 TAB Prov:UNIQUE TRAORE RESIDENT 09/25/25 Cefdinir (Cefdinir) 300 Mg Cap, 1 CAP PO BID for 7 Days, #14 CAP Prov:UNIQUE TRAORE RESIDENT 09/24/25 Pantoprazole Sodium Sesquihydr (Pantoprazole Sodium) 40 Mg Tab, 40 MG PO DAILY for 7 Days, #7 TAB Prov:PRANAY YAN RESIDENT 09/05/25 Reported Medications Hydrocodone-Acetaminophen (Hydrocodone Bitartrate/AC 10-325 mg) 1 Tab Tab, 1 TAB PO Q8HPRN PRN for PAIN SCALE 7 THRU 10, TAB 08/08/25 Aspirin (Aspirin Low Dose) 81 Mg Chw, 1 TAB PO DAILY, #30 TAB 3 Refills 08/08/25 Baclofen (Baclofen) 20 Mg Tab, 1 TAB PO BIDP PRN for FOR MUSCLE SPASM for 50 Days, #100 04/02/25 Gabapentin (Gabapentin) 400 Mg Cap, 1 CAP PO TID for 90 Days, #270 04/02/25 Hydroxyzine HCl (Hydroxyzine Hydrochloride) 50 Mg Tab, 1 TAB PO TIDP PRN for ANXIETY for 30 Days, #90 04/02/25 Olanzapine (OLANZAPINE) 2.5 Mg Tab, 1 TAB PO QPM for 30 Days, #30 04/02/25 Fluoxetine HCl (Fluoxetine HCl) 20 Mg Cap, 2 CAP PO QAM for 30 Days, #60 04/02/25 Apixaban Base (ELIQUIS) 5 Mg Tab, 1 TAB PO BID for 90 Days, #180 03/15/25 Ertugliflozin l-Pyroglutamic A (Steglatro) 5 Mg Tab, 1 TAB PO DAILY IN AM for 90 Days, #90 03/15/25 Quetiapine Fumerate (QUETIAPINE FUMARATE) 100 Mg Tab, 1 TAB PO HS for 30 Days, #30 03/15/25 Folic Acid (Folic Acid) 1 Mg Tab, 1 TAB PO DAILY for 90 Days, #90 03/15/25 Temazepam (Temazepam) 30 Mg Cap, 1 CAP PO HS for INSOMNIA for 30 Days, #30 03/15/25 Atorvastatin Calcium (ATORVASTATIN CALCIUM) 20 Mg Tab, 1.5 TAB PO DAILY for 90 Days, #135 30 MG PO IN THE MORNING 03/15/25 Mode of Arrival: EMS Past Medical History PAST MEDICAL HISTORY: CKF, CVA, DM, High Lipids, HTN, Liver, PAD, Schizophrenia, Seizures Surgical History: AKA Family History Family History: Unknown Family History (Other): Patient is a poor historian Social History Smoker: Non-Smoker Alcohol: Denies ETOH Use Drugs: Denies Drug Use Lives In: Home Constitutional: denies: chills, diaphoresis, fatigue, fever, malaise, sweats, weakness, others EENTM: denies: blurred vision, double vision, ear bleeding, ear discharge, ear drainage, ear pain, ear ringing, eye pain, eye redness, hearing loss, mouth pain, mouth swelling, nasal discharge, nose bleeding, nose congestion, nose pain, photophobia, tearing, throat pain, throat swelling, voice changes, others Respiratory: denies: cough, hemoptysis, orthopnea, SOB at rest, shortness of breath, SOB with excertion, stridor, wheezing, others Cardiovascular: denies: chest pain, dizzy spells, diaphoresis, Dyspnea on exertion, edema, irregular heart beat, left arm pain, lightheadedness, palpitations, PND, syncope, others Gastrointestinal: denies: abdomen distended, abdominal pain, blood streaked bowels, constipated, diarrhea, dysphagia, difficulty swallowing, hematemesis, melena, nausea, poor appetite, poor fluid intake, rectal bleeding, rectal pain, vomiting, others Genitourinary: denies: burning, dysuria, flank pain, frequency, hematuria, incontinence, penile discharge, penile sore, pain, testicle pain, testicle swelling, urgency, others Neurological: denies: dizziness, fainting, headache, left sided numbness, left sided weakness, numbness, paresthesia, pre-existing deficit, right sided numbness, right sided weakness, seizure, speech problems, tingling, tremors, weakness, others Musculoskeletal: denies: back pain, gout, joint pain, joint swelling, muscle pain, muscle stiffness, neck pain, others Integumetry: denies: bruises, change in color, change in hair/nails, dryness, laceration, lesions, lumps, rash, wounds, others Allergic/Immunocompromised: denies: Difficulty Healing, Frequent Infections, Hi ves, Itching, others Hematologic/Lymphatic: denies: anemia, blood clots, easy bleeding, easy bruising, swollen glands, others Endocrine: denies: excessive hunger, excessive sweating, excessive thirst, excessive urination, flushing, intolerance to cold, intolerance to heat, unexplained weight gain, unexplained weight loss, others Psychiatric: denies: anxiety, bipolar disorder, depression, hopeless, panic disorder, schizophrenia, sleepless, suicidal, others Physical Exam General Appearance: Normal HEENT: Normal ENT Inspection Neck: Non-Tender, Normal Inspection Respiratory: No Respiratory Distress, Normal Breath Sounds Cardiovascular: No Edema, No Murmur Breast Exam: Normal Gastrointestinal: Non Tender, Normal Bowel Sounds Genitalia: Deferred Pelvic: Deferred Rectal: Deferred Extremities: Non-tender, Other (right above knee amputation, healed scar above left ankle) Neurologic: No Motor Deficits, Normal Mood, No Sensory Deficits Cerebellar Function: Unable to Test Reflexes: Normal, L Knee, R Biceps, L Biceps, L Ankle Skin: Normal Color Lymphatic: No Adenopathy Was a procedure done? Was a procedure done?: No Differential Dx Considerations may include: hyperglycemia X-Ray, Labs, Meds, VS Vital Signs Date Time Temp Pulse Resp B/P (MAP) Pulse Ox O2 Delivery O2 Flow Rate FiO2 10/03/25 15:00 99.0 86 13 164/81 (108) 99 99.0 10/03/25 13:32 96 13 99 Room Air* 0 21 10/03/25 13:32 96 13 166/80 (108) 99 10/03/25 13:12 95 10/03/25 13:05 97.6 95 18 162/78 99 97.6 Lab Test 10/03/25 15:05 10/03/25 14:06 10/03/25 13:18 Range/Units POC Glucose > 600 *H 70-106 mg/dl White Blood Count 5.8 4.4-10.8 10^3/uL Red Blood Count 3.58 L 4.5-5.90 10^6/uL Hemoglobin 10.6 L 13.5-17.5 g/dL Hematocrit 34.6 #L 41.0-53.0 % Mean Corpuscular Volume 96.7 # 80.0-100.0 fL Mean Corpuscular Hemoglobin 29.7 28.0-32.0 pg Mean Corpuscular Hemoglobin Concent 30.7 L 32.0-36.0 g/dL Red Cell Distribution Width 15.9 H 11.8-14.3 % Platelet Count 477 H 140-450 10^3/uL Mean Platelet Volume 7.8 6.9-10.8 fL Neutrophils (%) (Auto) 74.7 37.0-80.0 % Lymphocytes (%) (Auto) 11.8 10.0-50.0 % Monocytes (%) (Auto) 7.1 0.0-12.0 % Eosinophils (%) (Auto) 5.2 0.0-7.0 % Basophils (%) (Auto) 1.2 0.0-2.0 % Neutrophils # (Auto) 4.3 1.6-8.6 10 ^3/uL Lymphocytes # (Auto) 0.7 0.4-5.4 10 ^3/uL Monocytes # (Auto) 0.4 0-1.3 10 ^3/uL Eosinophils # (Auto) 0.3 0-0.8 10 ^3/uL Basophils # (Auto) 0.1 0-0.2 10 ^3/uL Nucleated Red Blood Cells 0.1 % Sodium Level 128 #L 136-145 mmol/L Potassium Level 4.9 3.5-5.1 mmol/L Chloride Level 98 # 98-107 mmol/L Carbon Dioxide Level 19 L 20-31 mmol/L Anion Gap 11 5-15 Blood Urea Nitrogen 18 9-23 mg/dL Creatinine 1.69 H 0.700-1.30 mg/dL Glomerular Filtration Rate Calc 46 >90 mL/min BUN/Creatinine Ratio 10.7 10.0-20.0 Serum Glucose 857 #*H 74-106 mg/dL Calcium Level 8.1 L 8.7-10.4 mg/dL Beta-Hydroxybutyric Acid Pending Urine Color Colorless Yellow Urine Clarity Clear Clear Urine pH 6.5 5.0-9.0 Urine Specific [place] 1.017 1.001-1.035 Urine Protein 1+ H Negative Urine Ketones Negative Negative Urine Blood Negative Negative /uL Urine Nitrite Negative Negative Urine Bilirubin Negative Negative Urine Urobilinogen Normal Negative mg/dL Urine Leukocyte Esterase Negative Negative /uL Urine RBC <1 0 - 3 /hpf Urine Microscopic WBC < 1 0-3 /HPF Urine Squamous Epithelial Cells Few <5 /hpf Urine Bacteria None seen None Seen /hpf Urine Glucose 4+ H Normal mg/dL Current Medications Medications (Trade) Dose Ordered Sig/Niesha Route Start Time Stop Time Status Last Admin Sodium Chloride 500 ml @ 500 mls/hr Q1H ONCE IV 10/03/25 14:00 10/03/25 14:59 DC 10/03/25 14:16 Insulin Human Regular (InsuLIN R) 5 units ONCE ONCE SC 10/03/25 14:00 10/03/25 14:04 DC 10/03/25 14:18 Time of 1ST Reevaluation: 14:05 Reevaluation 1ST: Unchanged Patient Education/Counseling: Diagnosis, Treatment, Prognosis Family Education/Counseling: Diagnosis, Treatment, Prognosis SEPSIS Sepsis Screen Date sepsis recognized/suspect: Oct 03, 2025 Time Sepsis recognized/suspect: 9 Recent Procedure: No On Antibiotic Therapy: No Respiratory Rate >20: No Heart Rate >90: No Temp<36 C (96.8 F) or >38.3 C: No SBP <90 or MAP <65 mmHG: No New Acute Mental Status Change: No Is the patient on CPAP, BIPAP,: No Physician Orders Beta-Hydroxybutyrate (10/03/25 13:55) Accucheck (10/03/25 ) Electrocardigram (10/03/25 14:50) Vital Signs Date Time Temp Pulse Resp B/P (MAP) Pulse Ox O2 Delivery O2 Flow Rate FiO2 10/03/25 15:00 99.0 86 13 164/81 (108) 99 99.0 12/19/25 13:32 96 13 99 Room Air* 0 21 10/03/25 13:32 96 13 166/80 (108) 99 10/03/25 13:12 95 10/03/25 13:05 97.6 95 18 162/78 99 97.6 Laboratory Tests Test 10/03/25 14:06 White Blood Count 5.8 10^3/uL (4.4-10.8) Medications Medications Dose Ordered Sig/Niesha Route Start Time Stop Time Status Last Admin Dose Admin Insulin Human Regular 5 units ONCE ONCE SC 10/03/25 14:00 10/03/25 14:04 DC 10/03/25 14:18 Sodium Chloride 500 ml @ 500 mls/hr Q1H ONCE IV 10/03/25 14:00 10/03/25 14:59 DC 10/03/25 14:16 Departure 1 Departure Time of Disposition: 14:08 Impression: Primary Impression: Hyperglycemia due to diabetes mellitus Additional Impression: Uncontrolled diabetes mellitus with hyperglycemia Disposition: 30 STILL A PATIENT Condition: Stable Critical Care Note Critical Care Time?: No Stability Stability form required: MYLES Cervantes RESIDENT Oct 03, 2025 14:08
[2025-10-03] MEDS: SODIUM CHLORIDE 0.9% 500 ML IV ONE ×2 (14:16→16:45)
[2025-10-03] MEDS: InsuLIN REG 1unit/0.01ml Soln (100units/ml) SC ONE ×2 (14:18→16:11)
[2025-10-03 14:26] LABS: Hematocrit 34.6 % (41.0-53.0); Hemoglobin 10.6 g/dL (13.5-17.5); Mean Corpuscular Hemoglobin 29.7 pg (28.0-32.0); Mean Corpuscular Volume 96.7 fL (80.0-100.0); Nucleated Red Blood Cells % 0.1 %
[2025-10-03 14:59] LABS: Chloride 98 mmol/L (98-107); Potassium 4.9 mmol/L (3.5-5.1)
[2025-10-03 15:00] LABS: Anion Gap 11 (5-15)
[2025-10-03 15:03] LABS: Calcium 8.1 mg/dL (8.7-10.4); Carbon Dioxide 19 mmol/L (20-31); Sodium 128 mmol/L (136-145)
[2025-10-03 15:06] LABS: BUN/Creatinine Ratio 10.7 (10.0-20.0); Blood Urea Nitrogen 18 mg/dL (9-23)
[2025-10-03 15:16] LABS: Glucose 857 mg/dL (74-106)
[2025-10-03] MEDS: SODIUM CHLORIDE 0.9% 1,000 ML IV ONE (17:03)
[2025-10-03 19:30] VITALS: PULSE 89; RESP 12; O2SAT 98
--- NOTE | 2025-10-03 21:56 | DVHHP2 ---
History of Present Illness Reason for Visit: Hyperglycemia History of Present Illness 59-year-old male presents for evaluation of hypo glycemia. Patient reports a one day history of blood sugar reading greater than 500. On arrival patient's blood sugar was 850. Denies fever or chills. No nausea or vomiting. No abdominal pain. Past Medical History Schizophrenia, CVA, dyslipidemia, diabetes mellitus, hypertension, chronic kidney disease Past Surgical History Above the knee amputation Family History Noncontributory Smoke: No ALCOHOL: none Drugs: None Lives: with Family Review of Systems Review of Systems Review of systems are currently negative otherwise addressed in HPI. Allergies: Coded Allergies: Egg Solids, Whole (Verified Allergy, Intermediate, VOMITING, 08/08/25) Medications Current Medications Medications Dose Ordered Sig/Niesha Route Start Time Stop Time Status Last Admin Dose Admin Apixaban 5 mg BID PO 10/03/25 22:00 Atorvastatin Calcium 30 mg DAILY PO 10/04/25 10:00 Quetiapine Fumarate 100 mg HS PO 10/03/25 22:00 Aspirin 81 mg DAILY PO 10/04/25 10:00 Gabapentin 400 mg TID PO 10/03/25 22:00 UNV Metoprolol Tartrate 50 mg BID PO 10/03/25 22:00 UNV Exam Vital Signs Vital Signs Date Time Temp Pulse Resp B/P (MAP) Pulse Ox O2 Delivery O2 Flow Rate FiO2 10/03/25 20:00 89 10/03/25 19:00 10 155/ 100 10/03/25 17:13 99.0 99.0 10/03/25 13:32 Room Air* 0 21 Exam Gen: 59-year-old male in mild distress Skin: Warm, dry, normal color and texture, no rash. HEENT: Normocephalic atraumatic, mucous membranes moist and pink. Neck: Cervical and supraclavicular nodes normal without enlargement, trachea is midline, thyroid gland is normal without masses. Pulmonary: Clear to auscultation and percussion bilaterally. Cardiac: Regular rate and rhythm. No murmur Abdomen: Soft, nontender, nondistended, bowel sounds present all 4 quadrants, no guarding, no rigidity, no organomegaly. Extremities: No cyanosis, clubbing, no edema Neuro: Cranial nerves II through XII grossly intact, normal affect and speech, no focal motor deficits. Labs/Xrays Labs Test 10/03/25 20:36 10/03/25 14:06 10/03/25 13:18 Range/Units POC Glucose 263 H 70-106 mg/dl White Blood Count 5.8 4.4-10.8 10^3/uL Red Blood Count 3.58 L 4.5-5.90 10^6/uL Hemoglobin 10.6 L 13.5-17.5 g/dL Hematocrit 34.6 #L 41.0-53.0 % Mean Corpuscular Volume 96.7 # 80.0-100.0 fL Mean Corpuscular Hemoglobin 29.7 28.0-32.0 pg Mean Corpuscular Hemoglobin Concent 30.7 L 32.0-36.0 g/dL Red Cell Distribution Width 15.9 H 11.8-14.3 % Platelet Count 477 H 140-450 10^3/uL Mean Platelet Volume 7.8 6.9-10.8 fL Neutrophils (%) (Auto) 74.7 37.0-80.0 % Lymphocytes (%) (Auto) 11.8 10.0-50.0 % Monocytes (%) (Auto) 7.1 0.0-12.0 % Eosinophils (%) (Auto) 5.2 0.0-7.0 % Basophils (%) (Auto) 1.2 0.0-2.0 % Neutrophils # (Auto) 4.3 1.6-8.6 10 ^3/uL Lymphocytes # (Auto) 0.7 0.4-5.4 10 ^3/uL Monocytes # (Auto) 0.4 0-1.3 10 ^3/uL Eosinophils # (Auto) 0.3 0-0.8 10 ^3/uL Basophils # (Auto) 0.1 0-0.2 10 ^3/uL Nucleated Red Blood Cells 0.1 % Sodium Level 128 #L 136-145 mmol/L Potassium Level 4.9 3.5-5.1 mmol/L Chloride Level 98 # 98-107 mmol/L Carbon Dioxide Level 19 L 20-31 mmol/L Anion Gap 11 5-15 Blood Urea Nitrogen 18 9-23 mg/dL Creatinine 1.69 H 0.700-1.30 mg/dL Glomerular Filtration Rate Calc 46 >90 mL/min BUN/Creatinine Ratio 10.7 10.0-20.0 Serum Glucose 857 #*H 74-106 mg/dL Hemoglobin A1c 10.7 H <5.7 % A1C Calcium Level 8.1 L 8.7-10.4 mg/dL Beta-Hydroxybutyric Acid 0.165 < 0.4 mmol/L Urine Color Colorless Yellow Urine Clarity Clear Clear Urine pH 6.5 5.0-9.0 Urine Specific [place] 1.017 1.001-1.035 Urine Protein 1+ H Negative Urine Ketones Negative Negative Urine Blood Negative Negative /uL Urine Nitrite Negative Negative Urine Bilirubin Negative Negative Urine Urobilinogen Normal Negative mg/dL Urine Leukocyte Esterase Negative Negative /uL Urine RBC <1 0 - 3 /hpf Urine Microscopic WBC < 1 0-3 /HPF Urine Squamous Epithelial Cells Few <5 /hpf Urine Bacteria None seen None Seen /hpf Urine Glucose 4+ H Normal mg/dL SEPSIS Sepsis Screen Date sepsis recognized/suspect: Oct 03, 2025 Time Sepsis recognized/suspect: 1338 Recent Procedure: No On Antibiotic Therapy: No Respiratory Rate >20: No Heart Rate >90: No Temp<36 C (96.8 F) or >38.3 C: No SBP <90 or MAP <65 mmHG: No New Acute Mental Status Change: No Is the patient on CPAP, BIPAP,: No Physician Orders Accucheck (10/03/25 ) Electrocardigram (10/03/25 14:50) Sodium Chloride 0.9% (10/03/25 16:15) Apixaban (Eliquis) (10/03/25 22:00) Atorvastatin (Lipitor) (10/04/25 10:00) Quetiapine Fumarate Tablet (Seroquel Tab (10/03/25 22:00) Aspirin Chewable Tablet (10/04/25 10:00) Admit (10/03/25 19:53) Gabapentin Capsule (Neurontin Capsule) (10/03/25 22:00) Metoprolol Tartrate Tablet (Lopressor Ta (10/03/25 22:00) Basic Metabolic Panel (10/04/25 04:00) Urinalysis (10/03/25 20:52) Vital Signs Date Time Temp Pulse Resp B/P (MAP) Pulse Ox O2 Delivery O2 Flow Rate FiO2 10/03/25 20:00 89 10/03/25 19:00 86 10 155/ 100 10/03/25 17:13 99.0 90 12 144/80 (101) 99 99.0 10/03/25 15:00 99.0 86 13 164/81 (108) 99 99.0 Laboratory Tests Test 10/03/25 14:06 White Blood Count 5.8 10^3/uL (4.4-10.8) Medications Medications Dose Ordered Sig/Niesha Route Start Time Stop Time Status Last Admin Dose Admin Insulin Human Regular 5 units ONCE ONCE SC 10/03/25 14:00 10/03/25 14:04 DC 10/03/25 14:18 5 UNITS Insulin Human Regular 5 units ONCE ONCE SC 10/03/25 16:00 10/03/25 16:01 DC 10/03/25 16:11 5 UNITS Sodium Chloride 500 ml @ 500 mls/hr Q1H ONCE IV 10/03/25 14:00 10/03/25 14:59 DC 10/03/25 14:16 500 MLS/HR Sodium Chloride 500 ml @ 500 mls/hr Q1H ONCE IV 10/03/25 16:15 10/03/25 17:14 DC 10/03/25 16:45 500 MLS/HR Sodium Chloride 1,000 ml @ 75 mls/hr [id number] ONCE IV 10/03/25 16:15 10/04/25 05:34 10/03/25 17:03 75 MLS/HR Assessment/Plan Assessment/Plan Assessment Uncontrolled diabetes mellitus Acute kidney injury Hypertension Noncompliant Plan Admit the patient to [facility] to the hospitalist Q.4 hour Accu-Cheks with moderate coverage Resume home medications Continue treatment per orders. Plan discussed with: Patient My Orders Orders - SVETA SPARKS Procedure Category Date Status Time Admit ADMIT 10/03/25 Transmitted 19:53 Gabapentin Capsule PHA 10/03/25 Logged (Neurontin Capsule) 22:00 Metoprolol Tartrate PHA 10/03/25 Logged Tablet (Lopressor Ta 22:00 Basic Metabolic Panel LAB 10/04/25 Verified 04:00 Urinalysis LAB 10/03/25 Logged 20:52 Date of Service: Oct 03, 2025 Billing Provider: SVETA SPARKS Common Visit Codes: [id number] INP/OBS CARE (MOD) SVETA SPARKS Oct 03, 2025 21:56
[2025-10-03] MEDS ORDERED: DEXTROSE (50%) 50ML SYRG IV PRN (23:00)
[2025-10-03] MEDS: METOPROLOL TARTRATE 50 MG TAB PO SCH (23:03)
[2025-10-03] MEDS: GABAPENTIN 400 MG CAP PO SCH (23:03)
[2025-10-03] MEDS: APIXABAN 5 MG TAB PO SCH (23:04)
[2025-10-03] MEDS: InsuLIN REG 1unit/0.01ml Soln (100units/ml) SC SCH (23:08)
[2025-10-03] MEDS: ACCU-CHEK COMFORT CURVE STRIP VI SCH (23:30)
[2025-10-03 23:38] VITALS: BP 149/78; PULSE 93; RESP 17; TEMP 98.4; O2SAT 100
[2025-10-04] VITALS (7 sets, daily range): BP systolic 90–150; BP diastolic 54–86; PULSE 66–96; RESP 16–18; TEMP 97.4–98.6; O2SAT 96–100
[2025-10-04 05:45] LABS: Potassium 3.8 mmol/L (3.5-5.1); Sodium 144 mmol/L (136-145)
[2025-10-04 05:46] LABS: Anion Gap 10 (5-15); Calcium 8.7 mg/dL (8.7-10.4); Carbon Dioxide 23 mmol/L (20-31)
[2025-10-04 05:48] LABS: Chloride 111 mmol/L (98-107)
[2025-10-04 05:51] LABS: BUN/Creatinine Ratio 14.5 (10.0-20.0); Blood Urea Nitrogen 19 mg/dL (9-23)
[2025-10-04 05:52] LABS: Glucose 203 mg/dL (74-106)
[2025-10-04] MEDS: ATORVASTATIN 20 MG TAB PO SCH (09:51)
--- NOTE | 2025-10-04 11:22 | DVHPN2 ---
Reviewed: Care Plan, H&P, Labs, Medications, Previous Orders, Radiology Changes from previous H/P or p: No Changes Objective Vitals Vital Signs Date Time Temp Pulse Resp B/P (MAP) Pulse Ox O2 Delivery O2 Flow Rate FiO2 10/04/25 09:52 72 141/86 10/04/25 09:03 97.4 18 98 97.4 10/03/25 23:33 Room Air* 0 21 Intake/Output Intake and Output 10/04/25 07:00 Intake Total 1275 ml Output Total 300 ml Balance 975 ml Intake Oral 200 ml IV Total 1075 ml Output Urine Total 300 ml Medications Current Medications Medications Dose Ordered Sig/Niesha Route Start Time Stop Time Status Last Admin Dose Admin Apixaban 5 mg BID PO 10/03/25 22:00 10/04/25 09:51 5 MG Atorvastatin Calcium 30 mg DAILY PO 10/04/25 10:00 10/04/25 09:51 30 MG Quetiapine Fumarate 100 mg HS PO 10/03/25 22:00 10/03/25 23:04 100 MG Aspirin 81 mg DAILY PO 10/04/25 10:00 10/04/25 09:51 81 MG Gabapentin 400 mg TID PO 10/03/25 22:00 10/04/25 06:05 400 MG Metoprolol Tartrate 50 mg BID PO 10/03/25 22:00 10/04/25 09:52 50 MG Diagnostic Test (Pha) 1 strip IQ4HR 10/04/25 00:00 10/04/25 07:58 1 STRIP Insulin Human Regular IQ4HR SC 10/04/25 00:00 10/04/25 07:58 3 UNITS Dextrose 50 ml UD PRN IV 10/03/25 23:00 Laboratory Results Laboratory Tests 10/03/25 14:06 10/04/25 04:33 Chemistry Test 10/03/25 14:06 10/04/25 04:33 Calcium Level 8.1 mg/dL (8.7-10.4) L 8.7 mg/dL (8.7-10.4) HgA1c, TSH Test 10/03/25 14:06 Hemoglobin A1c 10.7 % A1C (<5.7) H Urinalysis Test 10/03/25 13:18 Urine Color Colorless (Yellow) Urine Clarity Clear (Clear) Urine pH 6.5 (5.0-9.0) Urine Specific [place] 1.017 (1.001-1.035) Urine Protein 1+ (Negative) H Urine Ketones Negative (Negative) Urine Blood Negative /uL (Negative) Urine Nitrite Negative (Negative) Urine Bilirubin Negative (Negative) Urine Urobilinogen Normal mg/dL (Negative) Urine Leukocyte Esterase Negative /uL (Negative) Urine RBC <1 /hpf (0 - 3) Urine Microscopic WBC < 1 /HPF (0-3) Urine Squamous Epithelial Cells Few /hpf (<5) Urine Bacteria None seen /hpf (None Seen) Urine Glucose 4+ mg/dL (Normal) H Labs and/or images reviewed: Labs reviewed by me, Image(s) reviewed by me Assessment/Plan Assessment/Plan acute hyperglycemia blood sugars 800 Acute metabolic encephalopathy Uncontrolled diabetes 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 Chronic anemia History of seizures Bipolar disorder Schizophrenia Hypertension Hypercholesterolemia Peripheral arterial disease History of CVA History of right above-knee amputation Chronic left lower extremity wound Patient noncompliance Time spent 70 minutes Advanced care planning time 20 minutes Patient is full code Plan discussed with: Patient Date of Service: Oct 04, 2025 Billing Provider: AYSE HUMPHREY MD Common Visit Codes: [id number] CARE 30-74 MIN AYSE HUMPHREY MD Oct 04, 2025 11:22
[2025-10-05 01:00] VITALS: BP 90/54; PULSE 78; RESP 16; TEMP 98; O2SAT 98
[2025-10-05] MEDS: SODIUM CHLORIDE 0.9% 500 ML IV ONE (01:18)
[2025-10-05 05:00] VITALS: BP 95/54; PULSE 66; RESP 17; TEMP 98; O2SAT 100
[2025-10-05 09:00] VITALS: BP 120/66; PULSE 69; RESP 18; TEMP 96.9; O2SAT 98
--- NOTE | 2025-10-05 12:06 | DVHPN2 ---
Reviewed: Care Plan, H&P, Labs, Medications, Previous Orders, Radiology Changes from previous H/P or p: No Changes Objective Vitals Vital Signs Date Time Temp Pulse Resp B/P (MAP) Pulse Ox O2 Delivery O2 Flow Rate FiO2 10/05/25 09:00 96.9 69 18 120/66 (84) 98 96.9 10/05/25 08:00 Room Air* 0 21 Intake/Output Intake and Output 10/05/25 07:00 Intake Total 1220 ml Output Total 2050 ml Balance -830 ml Intake Oral 720 ml IV Total 500 ml Output Urine Total 2050 ml Medications Current Medications Medications Dose Ordered Sig/Niesha Route Start Time Stop Time Status Last Admin Dose Admin Apixaban 5 mg BID PO 10/03/25 22:00 10/05/25 10:29 5 MG Atorvastatin Calcium 30 mg DAILY PO 10/04/25 10:00 10/05/25 10:29 30 MG Quetiapine Fumarate 100 mg HS PO 10/03/25 22:00 10/04/25 21:12 100 MG Aspirin 81 mg DAILY PO 10/04/25 10:00 10/05/25 10:29 81 MG Gabapentin 400 mg TID PO 10/03/25 22:00 10/05/25 06:42 400 MG Metoprolol Tartrate 50 mg BID PO 10/03/25 22:00 10/04/25 21:12 50 MG Diagnostic Test (Pha) 1 strip IQ4HR 10/04/25 00:00 10/05/25 08:00 1 STRIP Insulin Human Regular IQ4HR SC 10/04/25 00:00 10/05/25 08:00 6 UNITS Dextrose 50 ml UD PRN IV 10/03/25 23:00 Laboratory Results Laboratory Tests 10/03/25 14:06 10/04/25 04:33 Urinalysis Test 10/03/25 13:18 Urine Color Colorless (Yellow) Urine Clarity Clear (Clear) Urine pH 6.5 (5.0-9.0) Urine Specific [place] 1.017 (1.001-1.035) Urine Protein 1+ (Negative) H Urine Ketones Negative (Negative) Urine Blood Negative /uL (Negative) Urine Nitrite Negative (Negative) Urine Bilirubin Negative (Negative) Urine Urobilinogen Normal mg/dL (Negative) Urine Leukocyte Esterase Negative /uL (Negative) Urine RBC <1 /hpf (0 - 3) Urine Microscopic WBC < 1 /HPF (0-3) Urine Squamous Epithelial Cells Few /hpf (<5) Urine Bacteria None seen /hpf (None Seen) Urine Glucose 4+ mg/dL (Normal) H Labs and/or images reviewed: Labs reviewed by me, Image(s) reviewed by me Assessment/Plan Assessment/Plan Acute hyperglycemia blood sugars 800 Acute metabolic encephalopathy Uncontrolled diabetes 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 Chronic anemia History of AFib on Eliquis History of seizures Bipolar disorder Schizophrenia Seroquel Hypertension Hypercholesterolemia Peripheral arterial disease History of CVA History of right above-knee amputation Chronic left lower extremity wound Patient noncompliance Time spent 50 minutes Advanced care planning time 20 minutes Patient is full code Plan discussed with: Patient Date of Service: Oct 05, 2025 Billing Provider: AYSE HUMPHREY MD Common Visit Codes: [id number] INP/OBS CARE(HIGH) AYSE HUMPHREY MD Oct 05, 2025 12:06
[2025-10-05 12:47] VITALS: BP 120/76; PULSE 78; RESP 20; TEMP 96.9; O2SAT 99
[2025-10-05 17:08] VITALS: BP 124/64; PULSE 75; RESP 18; TEMP 96.9; O2SAT 98
[2025-10-05 21:00] VITALS: BP 122/83; PULSE 83; RESP 17; TEMP 97.7; O2SAT 100
[2025-10-06] VITALS (8 sets, daily range): BP systolic 94–143; BP diastolic 50–85; PULSE 74–92; RESP 16–18; TEMP 97.8–98.7; O2SAT 96–100
--- NOTE | 2025-10-06 10:11 | ECG ---
[facility] Test Date: 2025-10-03 Test Time: 13:12:56 Pat Name: LISA BENITES Department: [facility] ED Patient ID: [id number] Room: 0285 B Gender: M Manager Concrete: DELLA : 1965 Requested By: NEVA QUIÑONES Order Number: [id number] Reading MD: Roshan Velasco Measurements Intervals [place] Rate: 95 P: 44 OR: 155 QRS: 40 QRSD: 84 T: 61 QT: 374 QTc: 470 Interpretive Statements Sinus rhythm Abnormal R-wave progression, early transition Baseline wander in lead(s) V1,V2,V3,V5,V6 Electronically Signed On 10-06-2025 15:22:55 PST by Roshan Velasco Please click the below link to view image of tracing.
--- NOTE | 2025-10-06 12:19 | DVHPN2 ---
Reviewed: Care Plan, H&P, Labs, Medications, Previous Orders, Radiology Changes from previous H/P or p: No Changes Objective Vitals Vital Signs Date Time Temp Pulse Resp B/P (MAP) Pulse Ox O2 Delivery O2 Flow Rate FiO2 10/06/25 09:47 92 101/66 10/06/25 09:00 97.8 18 96 97.8 10/06/25 08:00 Room Air* 0 21 Intake/Output Intake and Output 10/06/25 07:00 Intake Total 1460 ml Output Total 1400 ml Balance 60 ml Intake Oral 1460 ml Output Urine Total 1400 ml # Voids 2 # Bowel Movements 2 Medications Current Medications Medications Dose Ordered Sig/Niesha Route Start Time Stop Time Status Last Admin Dose Admin Apixaban 5 mg BID PO 10/03/25 22:00 10/06/25 09:47 5 MG Atorvastatin Calcium 30 mg DAILY PO 10/04/25 10:00 10/06/25 09:46 30 MG Quetiapine Fumarate 100 mg HS PO 10/03/25 22:00 10/05/25 21:43 100 MG Aspirin 81 mg DAILY PO 10/04/25 10:00 10/06/25 09:47 81 MG Gabapentin 400 mg TID PO 10/03/25 22:00 10/06/25 06:24 400 MG Metoprolol Tartrate 50 mg BID PO 10/03/25 22:00 10/06/25 09:47 50 MG Diagnostic Test (Pha) 1 strip IQ4HR 10/04/25 00:00 10/06/25 12:05 1 STRIP Insulin Human Regular IQ4HR SC 10/04/25 00:00 10/06/25 12:05 4 UNITS Dextrose 50 ml UD PRN IV 10/03/25 23:00 Laboratory Results Laboratory Tests 10/03/25 14:06 10/04/25 04:33 Urinalysis Test 10/03/25 13:18 Urine Color Colorless (Yellow) Urine Clarity Clear (Clear) Urine pH 6.5 (5.0-9.0) Urine Specific [place] 1.017 (1.001-1.035) Urine Protein 1+ (Negative) H Urine Ketones Negative (Negative) Urine Blood Negative /uL (Negative) Urine Nitrite Negative (Negative) Urine Bilirubin Negative (Negative) Urine Urobilinogen Normal mg/dL (Negative) Urine Leukocyte Esterase Negative /uL (Negative) Urine RBC <1 /hpf (0 - 3) Urine Microscopic WBC < 1 /HPF (0-3) Urine Squamous Epithelial Cells Few /hpf (<5) Urine Bacteria None seen /hpf (None Seen) Urine Glucose 4+ mg/dL (Normal) H Labs and/or images reviewed: Labs reviewed by me, Image(s) reviewed by me Assessment/Plan Assessment/Plan Acute hyperglycemia blood sugars 800, improved Acute metabolic encephalopathy Uncontrolled diabetes 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 Chronic anemia History of AFib on Eliquis History of seizures Bipolar disorder Schizophrenia Seroquel Hypertension Hypercholesterolemia Peripheral arterial disease History of CVA History of right above-knee amputation Chronic left lower extremity wound Patient noncompliance Time spent 50 minutes Advanced care planning time 20 minutes Patient is full code Plan discussed with: Patient Date of Service: Oct 06, 2025 Billing Provider: AYSE HUMPHREY MD Common Visit Codes: [id number] INP/OBS CARE(HIGH) AYSE HUMPHREY MD Oct 06, 2025 12:18
[2025-10-07] VITALS (8 sets, daily range): BP systolic 100–133; BP diastolic 55–79; PULSE 67–87; RESP 16–19; TEMP 97.3–98.2; O2SAT 96–100
--- NOTE | 2025-10-07 12:33 | DVHDS2 ---
Discharge Summary Date of Admission Oct 03, 2025 at 19:54 Date of Discharge: Oct 07, 2025 Admitting Diagnosis Uncontrolled diabetes Wounds: None Labs/Diagnostic Data: Laboratory Results Test 10/07/25 11:50 10/05/25 02:00 10/04/25 04:33 10/03/25 14:06 POC Glucose 324 mg/dl (70-106) Lactic Acid Level 1.3 mmol/L (0.4-2.0) Sodium Level 144 mmol/L (136-145) Potassium Level 3.8 mmol/L (3.5-5.1) Chloride Level 111 mmol/L (98-107) Carbon Dioxide Level 23 mmol/L (20-31) Anion Gap 10 (5-15) Blood Urea Nitrogen 19 mg/dL (9-23) Creatinine 1.31 mg/dL (0.700-1.30) Glomerular Filtration Rate Calc 62 mL/min (>90) BUN/Creatinine Ratio 14.5 (10.0-20.0) Serum Glucose 203 mg/dL (74-106) Calcium Level 8.7 mg/dL (8.7-10.4) White Blood Count 5.8 10^3/uL (4.4-10.8) Red Blood Count 3.58 10^6/uL (4.5-5.90) Hemoglobin 10.6 g/dL (13.5-17.5) Hematocrit 34.6 % (41.0-53.0) Mean Corpuscular Volume 96.7 fL (80.0-100.0) Mean Corpuscular Hemoglobin 29.7 pg (28.0-32.0) Mean Corpuscular Hemoglobin Concent 30.7 g/dL (32.0-36.0) Red Cell Distribution Width 15.9 % (11.8-14.3) Platelet Count 477 10^3/uL (140-450) Mean Platelet Volume 7.8 fL (6.9-10.8) Neutrophils (%) (Auto) 74.7 % (37.0-80.0) Lymphocytes (%) (Auto) 11.8 % (10.0-50.0) Monocytes (%) (Auto) 7.1 % (0.0-12.0) Eosinophils (%) (Auto) 5.2 % (0.0-7.0) Basophils (%) (Auto) 1.2 % (0.0-2.0) Neutrophils # (Auto) 4.3 10 ^3/uL (1.6-8.6) Lymphocytes # (Auto) 0.7 10 ^3/uL (0.4-5.4) Monocytes # (Auto) 0.4 10 ^3/uL (0-1.3) Eosinophils # (Auto) 0.3 10 ^3/uL (0-0.8) Basophils # (Auto) 0.1 10 ^3/uL (0-0.2) Nucleated Red Blood Cells 0.1 % Hemoglobin A1c 10.7 % A1C (<5.7) Beta-Hydroxybutyric Acid 0.165 mmol/L (< 0.4) Test 10/03/25 13:18 Urine Color Colorless (Yellow) Urine Clarity Clear (Clear) Urine pH 6.5 (5.0-9.0) Urine Specific [place] 1.017 (1.001-1.035) Urine Protein 1+ (Negative) Urine Ketones Negative (Negative) Urine Blood Negative /uL (Negative) Urine Nitrite Negative (Negative) Urine Bilirubin Negative (Negative) Urine Urobilinogen Normal mg/dL (Negative) Urine Leukocyte Esterase Negative /uL (Negative) Urine RBC <1 /hpf (0 - 3) Urine Microscopic WBC < 1 /HPF (0-3) Urine Squamous Epithelial Cells Few /hpf (<5) Urine Bacteria None seen /hpf (None Seen) Urine Glucose 4+ mg/dL (Normal) Other Laboratory Tests 10/04/25 04:33 10/03/25 14:06 Brief Hx & Hospital Course: 59-year-old male with a history of uncontrolled diabetes hypotension hypercholesterolemia peripheral arterial disease CVA status post right above- knee amputation chronically left lower extremity wound history of seizures history of AFib on Eliquis chronic anemia brought in for uncontrolled blood sugars blood sugars at 800 patient was altered confused at the time of admission treated with the insulin IV fluids . His mental condition has improved after blood sugars were controlled. He is placed on aggressive insulin sliding scale patient was educated about diabetes control. Spoke with the patient's caregiver and aunt Yusuf who advised the patient is very noncompliant and she can not take care of him anymore. 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 Chronic anemia History of AFib on Eliquis History of seizures Bipolar disorder Schizophrenia Seroquel Hypertension Hypercholesterolemia Peripheral arterial disease History of CVA History of right above-knee amputation Chronic left lower extremity wound Discharge Disposition: [facility] Facility Discharge Instruct/Medications Diet: Cardiac 2g Na,low cholest Activity: No Restrictions, As Tolerated Follow Up/Referral: Follow up with the [facility] Medications: see list Scheduled Apixaban Base (Eliquis), 1 TAB PO BID, (Reported) Aspirin (Aspirin Low Dose), 1 TAB PO DAILY, (Reported) Atorvastatin Calcium (Atorvastatin Calcium), 1.5 TAB PO DAILY, (Reported) Cefdinir (Cefdinir), 1 CAP PO BID Ertugliflozin l-Pyroglutamic A (Steglatro), 1 TAB PO DAILY IN AM, (Reported) Fluoxetine HCl (Fluoxetine HCl), 2 CAP PO QAM, (Reported) Folic Acid (Folic Acid), 1 TAB PO DAILY, (Reported) Gabapentin (Gabapentin), 1 CAP PO TID, (Reported) Insulin Glargine (Lantus), 10 UNITS SC BID Olanzapine (Olanzapine), 1 TAB PO QPM, (Reported) Pantoprazole Sodium Sesquihydr (Pantoprazole Sodium), 40 MG PO DAILY Pantoprazole Sodium Sesquihydr (Pantoprazole Sodium), 40 MG PO DAILY Quetiapine Fumerate (Quetiapine Fumarate), 1 TAB PO HS, (Reported) Temazepam (Temazepam), 1 CAP PO HS, (Reported) Scheduled PRN Baclofen (Baclofen), 1 TAB PO BIDP PRN for FOR MUSCLE SPASM, (Reported) Hydrocodone-Acetaminophen (Hydrocodone Bitartrate/AC 10-325 mg), 1 TAB PO Q8HPRN PRN for PAIN SCALE 7 THRU 10, (Reported) Hydroxyzine HCl (Hydroxyzine Hydrochloride), 1 TAB PO TIDP PRN for ANXIETY, (Reported) 39 (Time taken discharge summary 39 minutes) Discharge Statement: "Patient was advised to return to the ER or call 911 if any headaches, dizziness, shortness of breath, chest pain, abdominal pain, bleeding, fevers, or worsening of medical condition. Patient was counseled about treatment plan, medications, possible side effects, patientverbalized understanding. All questions were answered to the best of my ability. 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
[2025-10-07] MEDS ORDERED: INSLANTI SC (12:50)
[2025-10-08 01:00] VITALS: BP 81/57; PULSE 88; RESP 16; TEMP 98; O2SAT 98
[2025-10-08] MEDS: MIDODRINE HCL 10 MG TAB PO ONE (02:48)
[2025-10-08 05:00] VITALS: BP 110/72; PULSE 81; RESP 16; TEMP 97.6; O2SAT 100
[2025-10-08 08:00] VITALS: PULSE 89; RESP 14; O2SAT 98
[2025-10-08 08:30] VITALS: BP 113/70; PULSE 89; RESP 18; TEMP 96.3; O2SAT 100
--- NOTE | 2025-10-08 12:10 | DVHPN2 ---
Reviewed: Care Plan, H&P, Labs, Medications, Previous Orders, Radiology Changes from previous H/P or p: No Changes Objective Vitals Vital Signs Date Time Temp Pulse Resp B/P (MAP) Pulse Ox O2 Delivery O2 Flow Rate FiO2 10/08/25 10:00 89 113/70 10/08/25 08:30 96.3 18 100 96.3 10/08/25 08:00 Room Air* 0 21 Intake/Output Intake and Output 10/08/25 07:00 Intake Total 1920 ml Output Total 2325 ml Balance -405 ml Intake Oral 1920 ml Output Urine Total 2325 ml # Bowel Movements 1 Medications Current Medications Medications Dose Ordered Sig/Niesha Route Start Time Stop Time Status Last Admin Dose Admin Apixaban 5 mg BID PO 10/03/25 22:00 10/08/25 10:24 5 MG Atorvastatin Calcium 30 mg DAILY PO 10/04/25 10:00 10/08/25 10:24 30 MG Quetiapine Fumarate 100 mg HS PO 10/03/25 22:00 10/07/25 21:39 100 MG Aspirin 81 mg DAILY PO 10/04/25 10:00 10/08/25 10:24 81 MG Gabapentin 400 mg TID PO 10/03/25 22:00 10/08/25 05:54 400 MG Metoprolol Tartrate 50 mg BID PO 10/03/25 22:00 10/06/25 22:41 50 MG Diagnostic Test (Pha) 1 strip IQ4HR 10/04/25 00:00 10/08/25 08:21 1 STRIP Insulin Human Regular IQ4HR SC 10/04/25 00:00 10/08/25 04:12 4 UNITS Dextrose 50 ml UD PRN IV 10/03/25 23:00 Laboratory Results Laboratory Tests 10/03/25 14:06 10/04/25 04:33 Urinalysis Test 10/03/25 13:18 Urine Color Colorless (Yellow) Urine Clarity Clear (Clear) Urine pH 6.5 (5.0-9.0) Urine Specific [place] 1.017 (1.001-1.035) Urine Protein 1+ (Negative) H Urine Ketones Negative (Negative) Urine Blood Negative /uL (Negative) Urine Nitrite Negative (Negative) Urine Bilirubin Negative (Negative) Urine Urobilinogen Normal mg/dL (Negative) Urine Leukocyte Esterase Negative /uL (Negative) Urine RBC <1 /hpf (0 - 3) Urine Microscopic WBC < 1 /HPF (0-3) Urine Squamous Epithelial Cells Few /hpf (<5) Urine Bacteria None seen /hpf (None Seen) Urine Glucose 4+ mg/dL (Normal) H Labs and/or images reviewed: Labs reviewed by me, Image(s) reviewed by me Assessment/Plan Assessment/Plan Acute hyperglycemia blood sugars 800, improved Acute metabolic encephalopathy Uncontrolled diabetes 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 Chronic anemia History of AFib on Eliquis History of seizures Bipolar disorder Schizophrenia Seroquel Hypertension Hypercholesterolemia Peripheral arterial disease History of CVA History of right above-knee amputation Chronic left lower extremity wound Patient was discharged to nursing home facility for rehab Awaiting authorization and bed availability Plan discussed with: Patient My Orders Orders - AYSE HUMPHREY MD Procedure Category Date Status Time * 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
[2025-10-08 13:30] VITALS: BP 142/83; PULSE 93; RESP 16; TEMP 97.3; O2SAT 100
[2025-10-08 14:23] VITALS: BP 142/83; PULSE 93; RESP 16; TEMP 97.3; O2SAT 100
== END 2025-10-08 18:00 | DRG 420 ==
LOC: ER 13:00 → EDBD 13:00 → OVERFLOW 19:54 → WEST WING 22:46
PROVIDERS: ADMIT Family Medicine; ATTEND Family Medicine
DX: E11.65 Type 2 diabetes mellitus with hyperglycemia (principal); N17.0 Acute kidney failure with tubular necrosis; G93.41 Metabolic encephalopathy; D64.9 Anemia, unspecified; E11.22 Type 2 diabetes mellitus with diabetic chronic kidney disease; E11.51 Type 2 diabetes mellitus with diabetic peripheral angiopathy without gangrene; E78.00 Pure hypercholesterolemia, unspecified; G40.909 Epilepsy, unspecified, not intractable, without status epilepticus; I48.91 Unspecified atrial fibrillation; Z79.01 Long term (current) use of anticoagulants; N18.9 Chronic kidney disease, unspecified; I12.9 Hypertensive chronic kidney disease with stage 1 through stage 4 chronic kidney disease, or unspecified chronic kidney disease; F20.9 Schizophrenia, unspecified; F31.9 Bipolar disorder, unspecified; Z89.611 Acquired absence of right leg above knee; Z79.4 Long term (current) use of insulin; Z86.73 Personal history of transient ischemic attack (TIA), and cerebral infarction without residual deficits; Z91.0120 Allergy to eggs, unspecified; Z91.199 Patient's noncompliance with other medical treatment and regimen due to unspecified reason
CPT/HCPCS: 36415; 80048; 81001; 82010; 82962; 83036; 83605; 85025; 93005; 96361; 96365; 96372; 97163; G0378; J1815